=== PATIENT | male | born 1940 | race Caucasian/White ===

== ENCOUNTER 2018-01-12 12:10 | Inpatient (IN) | payer MEDICARE ==
[~2018-01-12] VITALS: Ht 170.2 cm; Wt 79.0 kg
[~2018-01-12 12:10] MED LIST: MULT1TAB63; OMG1KC
--- OUTSIDE RECORDS SUMMARY | 2018-01-12 12:27 | XMS REPORT ---
Author Author CARMELITA SALDANA Organization [facility] [place] Address [address] [place] [address] Care Team Providers Care Content Architect Name Role Phone SALDANA, CARMELITA Unavailable PROBLEMS Type Condition ICD9-CM Code MOG31-OO Code Onset Dates Condition Status SNOMED Code Problem Hypertension I10 Active 19427253 Problem Urge incontinence of urine N39.41 Active 50283790 Problem Arthritis M19.90 Active 5826785 Problem Back pain M54.9 Active 464276605 Problem Functional diarrhea K59.1 Active 06121879 Problem Right inguinal hernia K40.90 Active 391793555 Problem Pure hypercholesterolemia E78.00 Active 247988786 Problem Gaines L84 Active 220690200 Problem Prostatism N40.0 Active 67844180 Problem Other chronic pain G89.29 Active 35408957 ALLERGIES No Information ENCOUNTERS Encounter Location Date Diagnosis [facility] [id number] [place] [address] 07769- 4779 10 Dec, 2017 Back pain M54.9 [facility] [place] [id number] [place] [address] 62097- 2054 12 Nov, 2017 Back pain M54.9 [facility] [place] [id number] [place] [address] 56572- 7606 16 Oct, 2017 Back pain M54.9 [facility] [place] [id number] [place] [address] 80566- 6854 15 Oct, 2017 [facility] [place] [id number] [place] [address] 66487- 8291 Sep, Back pain M54.9 [facility] [place] [id number] [place] [address] 10928- 5566 Aug, Back pain M54.9 ; Prostatism N40.0 ; Functional diarrhea K59.1 and Right inguinal hernia K40.90 [facility] [place] [id number] [place] [address] 13048- 2533 July, Other chronic pain G89.29 [facility] [place] [id number] [place] [address] 10940- 8427 Jun, Other chronic pain G89.29 [facility] [place] [id number] [place] [address] 45826- 6459 May, Other chronic pain G89.29 [facility] [place] [id number] [place] [address] 06955- 4882 Apr, Other chronic pain G89.29 [facility] [place] [id number] [place] [address] 77603- 2172 Mar, Other chronic pain G89.29 [facility] [place] [id number] [place] [address] 18664- 2563 Feb, Other chronic pain G89.29 [facility] [id number] [place] [address] 51417 -3261 Feb, Acute upper respiratory infection, unspecified J06.9 and Other viral agents as the cause of diseases classified elsewhere B97.89 [facility] [place] [id number] [place] [address] 07034- 0817 Jan, [facility] [place] [id number] [place] [address] 35573- 6864 Jan, Back pain M54.9 and Prostatism N40.0 [facility] [place] [id number] [place] [address] 33441- 4838 Jan, Other chronic pain G89.29 [facility] [place] [id number] [place] [address] 92232- 0482 Dec, [facility] [place] [id number] [place] [address] 33932- 6843 Dec, Other chronic pain G89.29 [facility] [place] [id number] [place] [address] 19968- 6889 29 Nov, 2016 Other chronic pain G89.29 [facility] [place] [id number] [place] [address] 96373- 0629 25 Nov, 2016 Encounter for immunization Z23 [facility] [place] [id number] [place] [address] 62433- 8348 Nov, Other chronic pain G89.29 [facility] [place] [id number] [place] [address] 67488- 5145 Oct, Other chronic pain G89.29 [facility] [place] [id number] [place] [address] 94137- 9520 Oct, Back pain M54.9 [facility] [place] [id number] [place] [address] 43245- 8836 Sep, Back pain M54.9 [facility] [place] [id number] [place] [address] 66063- 0096 Aug, [facility] [place] [id number] [place] [address] 43261- 9337 Aug, Back pain M54.9 [facility] [place] [id number] [place] [address] 37137- 3901 July, Back pain M54.9 [facility] [place] [id number] [place] [address] 44164- 1259 Jun, Weight loss R63.4 and Postural hypotension I95.1 [facility] [place] [id number] [place] [address] 87683- 1930 14 Jun, 2016 Back pain M54.9 [facility] [place] [id number] [place] [address] 33553- 6175 May, Back pain M54.9 [facility] [place] [address] [address]- 8771 Apr, Back pain M54.9 [facility] [place] [id number] [place] [address] 76260- 2959 17 Apr, 2016 Pure hypercholesterolemia E78.00 [facility] [place] [address] 77383- 3138 Apr, Hypertension I10 ; Back pain M54.9 ; Urge incontinence of urine N39.41 and Gaines L84 [facility] [place] [address] 52806- 4277 Mar, [facility] [place] [address] 74528- 4454 Mar, Other chronic pain G89.29 [facility] [place] [address] 38858- 1249 Feb, [facility] [place] [address] 29806- 5803 Jan, [facility] [place] [address] 76902- 0984 Dec, [facility] [place] [id number] [place] [address] 64995- 0893 Nov, [facility] [place] [address] 86788- 0107 05 Oct, 2015 [facility] [place] [id number] [place] [address] 17033- 3174 Sep, Back pain M54.9 [facility] [place] [address] 39671- 5010 17 Aug, 2015 Back pain M54.9 and Hypertension I10 [facility] [id number] [place] [address] 67570 -8102 13 Aug, 2015 Low back pain M54.5 and Other chronic pain G89.29 [facility] [place] [id number] [place] [address] 94916- 9895 10 Aug, 2015 Back pain M54.9 [facility] [place] [address] 35279- 4466 July, Back pain M54.9 [facility] [place] [id number] [place] [address] 77715- 8869 Jun, Back pain M54.9 [facility] [place] [id number] [place] [address] 07551- 7076 May, Back pain M54.9 [facility] [place] [address] 54489- 5157 Apr, Back pain M54.9 [facility] [place] [address] 24953- 7681 Mar, Back pain M54.9 [place] [address] 26556- 0905 Feb, Prostatitis N41.9 ; Arthritis M19.90 and Hypertension I10 [place] [address] 89940- 8694 Feb, [place] [address] 98717- 3327 Jan, [place] [address] 55410- 1472 Dec, Encounter for immunization Z23 [place] [address] 40001- 3566 Dec, [place] [address] 09374- 2211 Dec, Eye pain H57.10 [place] [id number] [place] [address] 12203- 3942 Dec, Contusion of left leg S80.12XA and Right shoulder injury S49.91XA [place] [id number] [place] [address] 95439- 7946 05 Dec, 2014 Cellulitis L03.90 ; Back pain M54.9 ; Urinary incontinence R32 and Need for shvivlkvbz-zlcubxy-cfwifakpz (Tdap) vaccine Z23 [facility] [place] [address] [facility] [id number] [address]- 4416 Nov, Need for prophylactic vaccination with tetanus-diphtheria ( TD) V06.5 [facility] [place] [address] [id number] [place] [address]- 2546 Nov, [facility] [place] [address] [facility] [id number], [place] [address]- 2546 Oct, [facility] [place] [address] [facility] [id number] [place] [address]- 2546 Sep, [facility] [place] [address] [facility] [id number] [place] [address]- 2546 Sep, [facility] [place] [address] [facility] [id number], [place] [address]- 2546 Aug, [facility] [place] [address] [id number] [address]- 3066 July, [facility] [place] [address] [facility] [id number], [place] [address]- 1526 July, [facility] [place] [address] [id number], [place] [address]- 5296 Jun, [facility] [place] [address] [id number], [place] [address]- 2546 Jun, [facility] [place] [address] [id number] [address]- 2546 May, [facility] [place] [address] [facility] [id number], [place] [address]- 2546 May, [facility] [place] [address] [id number] [address]- 2546 Apr, [facility] [place] [address] [facility] [id number], [place] [address]- 2546 Apr, [facility] [place] [address] [id number] [address]- 5617 Mar, [facility] [place] [facility] [address] [id number] [place] [address]- 5739 Mar, [facility] [place] [facility] [address] [id number] [place] [address]- 5521 Mar, [facility] [place] [facility] [address] [id number] [place] [address]- 4398 Mar, [facility] [place] [facility] [address] [id number] [place] [address]- 6432 Mar, [facility] [place] [facility] [address] [id number] [place] [address]- 6684 Mar, [facility] [place] [facility] [address] [id number] [place] [address]- 6120 Mar, [facility] [place] [facility] [address] [id number] [place] [address]- 5188 Mar, [facility] [place] [facility] [address] [id number] [place] [address]- 8190 Mar, [facility] [place] [facility] [address] [id number] [place] [address]- 7680 Mar, [facility] [place] [facility] [address] [id number] [place] [address]- 2734 Mar, [facility] [place] [facility] [address] [id number], [place] [address]- 3388 Mar, [facility] [place] [facility] [address] [id number][place] [address]- 3743 Mar, [facility] [place] [facility] [address] [id number] [place] [address]- 2872 Mar, [facility] [place] [facility] [address] [id number] [place] [address]- 1158 Feb, [facility] [place] [facility] [address] [id number] [place] [address]- 7246 Feb, [facility] [place] [facility] [address] [id number] [place] [address]- 7651 Feb, [facility] [place] [facility] [address] [id number] [place] [address]- 2337 Feb, [facility] [place] [facility] [address] [id number] [place] 1018 Feb, [facility] [place] [facility] [address] [id number] [place] 4296 Feb, [facility] [place] [facility] [address] [id number] [place] [address]- 7843 Jan, [facility] [place] [facility] [address] [id number] [place] [address]- 1694 Jan, [facility] [place] [facility] [address] [id number] [place] [address]- 2752 Dec, [facility] [place] [facility] [address] [id number] [place] [address]- 7195 Dec, [facility] [place] [facility] [address] [id number] [place] [address]- 8248 Dec, [facility] [place] [facility] [address] [id number] [place] [address]- 8354 Dec, [facility] [place] [facility] [address] [facility] [id number] [place] [address]- 4694 Dec, [facility] [place] [facility] [address] [id number] [place] [address]- 2919 Dec, [facility] [place] [facility] [address] [id number] [place] [address]- 4272 Nov, [facility] [place] [facility] [address] [id number] [place] [address]- 6373 Nov, [facility] [place] [facility] [address] [id number] [place] [address]- 1734 Oct, [facility] [place] [facility] [address] [id number] [place] 5294 Oct, [facility] [place] [facility] [address] [id number] [place] [address]- 0886 Sep, [facility] [place] [facility] [address] [id number] [place] [address]- 4419 Sep, [facility] [place] [facility] [address] [id number] [place] [address]- 2275 Sep, [facility] [place] [facility] [address] [id number] [place] [address]- 5255 Sep, [facility] [place] [facility] [address] [id number] [place] [address]- 3216 July, [facility] [place] [facility] [address] [id number] [place] [address]- 6078 July, [facility] [place] [facility] [address] [id number] [place] [address]- 9712 July, [facility] [place] [facility] [address] [id number] [place] [address]- 4865 July, [facility] [place] [facility] [address] [id number] [place] [address]- 8221 Feb, [facility] [place] [facility] [address] [id number] [place] [address]- 7512 Feb, [facility] [place] [facility] [address] [id number] [place] [address]- 1466 Jan, [facility] [place] [facility] [address] [id number] [place] [address]- 8058 Jan, [facility] [place] [facility] [address] [id number] [place] [address]- 8788 Jan, [facility] [place] [facility] [address] [id number] [place] [address]- 1204 Jan, [facility] [place] [facility] [address] [id number] [place] [address]- 7932 30 Nov, 2012 [facility] [place] [facility] [address] [id number], [place] [address]- 8405 Aug, [facility] [place] [facility] [address] [id number] [place] [address]- 2481 July, [facility] [place] [facility] [address] [id number] [place] [address]- 0407 Jun, [facility] [place] [facility] [address] [id number] [place] [address]- 3096 Apr, [facility] [place] [facility] [address] [id number] [place] [address]- 8980 Mar, [facility] [place] [facility] [address] [id number] [place] [address]- 0710 Mar, [facility] [place] [facility] [address] [id number] [place] 5234 Jan, [facility] [place] [facility] [address] [id number] [place] [address]- 3505 Jan, [facility] [place] [facility] [address] [id number] [place] [address]- 8957 Jan, [facility] [place] [facility] [address] [id number], [place] [address]- 8095 Jan, [facility] [place] [facility] [address] [id number] [place] [address]- 5565 Dec, [facility] [place] [facility] [address] [id number], [place] [address]- 3718 Dec, [facility] [place] [facility] [address] [id number], [place] [address]- 5573 Dec, [facility] [place] [facility] [address] [id number], [place] [address]- 4105 Dec, [facility] [place] [facility] [address] [id number], [place] [address]- 9803 Nov, [facility] [place] [facility] [address] [id number] [place] [address]- 1963 Oct, [facility] [place] [facility] [address] [id number] [place] [address] 2546 July, [facility] [address] [id number] [place] [address]- 9266 Mar, [facility] [place] [facility] [address] [id number] [place] [address] 2546 Jan, [facility] [place] [facility] [address] [id number] [place] [address]- 8246 Jan, [facility] [place] [facility] [address] [id number] [place] [address]- 3096 Dec, [facility] [place] [facility] [address] [id number] [place] [address]- 2696 Dec, [facility] [place] [facility] [address] [id number] [place] [address]- 1876 Dec, [facility] [place] [facility] [address] [id number] [place] [address]- 2775 Nov, [facility] [address] [id number] [place] [address]- 6753 July, [facility] [place] [facility] [address] [id number] [place] [address]- 4650 Jun, [facility] [place] [facility] [address] [id number] [place] [address]- 7366 May, [facility] [place] [facility] [address] [id number] [place] [address]- 1646 14 Apr, 2010 [facility] [place] [facility] [address] [id number] [place] [address]- 6866 Apr, [facility] [place] [facility] [address] [id number] [place] [address]- 8346 Mar, [facility] [place] [facility] [address] [id number] [place] [address]- 2546 Jan, [facility] [place] [facility] [address] [id number] [place] [address]- 0976 Dec, [facility] [place] [address] [facility] [id number] [place] [address]- 4259 Jun, [facility] [place] [address] [facility] [id number], [place] [address]- 0216 Jun, IMMUNIZATIONS No Known Immunizations SOCIAL HISTORY Never Assessed REASON FOR VISIT Controlled Med Refill 12/31 PLAN OF CARE VITAL SIGNS MEDICATIONS Medication Instructions Dosage Frequency Start Date End Date Duration Status Hydrocodone-Acetaminophen 5-325 MG Orally 3 times a day 1 tablet 8h Dec 28 days Active RESULTS No Results PROCEDURES No Known procedures INSTRUCTIONS MEDICATIONS ADMINISTERED No Known Medications MEDICAL (GENERAL) HISTORY Type Description Date Medical History prostatism Medical History chronic pain Medical History hypertension
--- OUTSIDE RECORDS SUMMARY | 2018-01-12 12:28 | XMS REPORT ---
Author Author RONAL CAMARGO Organization [facility] Address [address] [place] [address] Care Team Providers Care Infrastructure Administrator Name Role Phone RONAL CAMARGO Unavailable PROBLEMS Type Condition ICD9-CM Code QTZ22-MT Code Onset Dates Condition Status SNOMED Code Problem Hypertension I10 Active 61893553 Problem Urge incontinence of urine N39.41 Active 40309913 Problem Arthritis M19.90 Active 1682251 Problem Back pain M54.9 Active 579153373 Problem Functional diarrhea K59.1 Active 10794226 Problem Right inguinal hernia K40.90 Active 792856065 Problem Pure hypercholesterolemia E78.00 Active 644842102 Problem Annabella L84 Active 538560167 Problem Prostatism N40.0 Active 66599627 Problem Other chronic pain G89.29 Active 71144597 ALLERGIES No Information ENCOUNTERS Encounter Location Date Diagnosis [place] [id number] [place] [address] 57895- 0607 Nov, Back pain M54.9 [facility] [id number] [place] [address] 64203- 6855 Oct, Back pain M54.9 [facility] [id number] [place] [address] 22147- 5394 Oct, [facility] [id number] [place] [address] 28151- 4595 Sep, Back pain M54.9 [facility] [address] 37428- 3763 Aug, Back pain M54.9 ; Prostatism N40.0 ; Functional diarrhea K59.1 and Right inguinal hernia K40.90 [facility] [address] 38504- 7469 July, Other chronic pain G89.29 [facility] [address] [address] 2637 Jun, Other chronic pain G89.29 [facility] [id number] [place] [address] 292618- 5500 May, Other chronic pain G89.29 [facility] [id number] [place] [address] 25770- 0804 Apr, Other chronic pain G89.29 [facility] [address] [place] [address] 46118- 8663 Mar, Other chronic pain G89.29 [facility] [id number] [place] [address] 27969- 1561 Feb, Other chronic pain G89.29 [facility]ALK [facility] [address] [place] [address] 45871 -9091 Feb, Acute upper respiratory infection, unspecified J06.9 and Other viral agents as the cause of diseases classified elsewhere B97.89 [facility] [id number] [place] [address] 97241- 5101 Jan, [facility] [id number] [place] [address] 21830- 2577 Jan, Back pain M54.9 and Prostatism N40.0 [facility] [id number] [place] [address] 71929- 7412 Jan, Other chronic pain G89.29 [facility] [address] [place] [address] 61761- 1537 Dec, [facility] [id number] [place] [address] 25233- 4425 Dec, Other chronic pain G89.29 [facility] [id number] [place] [address] 60878- 4404 Nov, Other chronic pain G89.29 [facility] [id number] [place] [address] 52918- 6448 25 Nov, 2016 Encounter for immunization Z23 [facility] [address] 64861- 0563 Nov, Other chronic pain G89.29 [facility] [address] 87839- 9995 Oct, Other chronic pain G89.29 [facility] [address] 28650- 4031 Oct, Back pain M54.9 [facility] [address] 16452- 6416 Sep, Back pain M54.9 [facility] [id number] [place] [address] 01291- 2387 Aug, [facility] [address] 66156- 9321 Aug, Back pain M54.9 [facility] [id number] [place] [address] 85549- 8860 July, Back pain M54.9 [facility] [id number] [place] [address] 29871- 3569 24 Jun, 2016 Weight loss R63.4 and Postural hypotension I95.1 [facility] [id number] [place] [address] 39379- 0204 Jun, Back pain M54.9 [facility] [id number] [place] [address] 47390- 0589 May, Back pain M54.9 [facility] [address] 61059- 3278 Apr, Back pain M54.9 [facility] [id number] [place] [address] 97716- 4306 Apr, Pure hypercholesterolemia E78.00 [facility] [id number] [place] [address] 57843- 3096 Apr, Hypertension I10 ; Back pain M54.9 ; Urge incontinence of urine N39.41 and Annabella L84 [facility] [id number] [place] [address] 56071- 3280 Mar, [facility] [id number] [place] [address] 55689- 3218 Mar, Other chronic pain G89.29 [facility] [id number] [place] [address] 37057- 2733 Feb, [facility] [address] 65553- 4561 Jan, [facility] [id number] [place] [address] 88921- 2674 Dec, [facility] [id number] [place] [address] 16093- 4909 Nov, [facility] [id number] [place] [address] 47912- 7661 05 Oct, 2015 [facility] [id number] [place] [address] 68951- 3115 Sep, Back pain M54.9 [facility] [id number] [place] [address] 96058- 8365 17 Aug, 2015 Back pain M54.9 and Hypertension I10 [facility] [id number] [place] [address] 66751 -5692 13 Aug, 2015 Low back pain M54.5 and Other chronic pain G89.29 [facility] [id number] [place] [address] 49188- 0700 10 Aug, 2015 Back pain M54.9 [facility] [id number] [place] [address] 75441- 2445 July, Back pain M54.9 [facility] [address] 30538- 4880 06 Jun, 2015 Back pain M54.9 [place] [address] 30217- 9538 May, Back pain M54.9 [place] [address] 28832- 3386 04 Apr, 2015 Back pain M54.9 [place] [address] 54209- 0555 Mar, Back pain M54.9 [place] [address] 89361- 3743 Feb, Prostatitis N41.9 ; Arthritis M19.90 and Hypertension I10 [place] [address] 11388- 5341 15 Feb, 2015 [place] [address] 20516- 5790 Jan, [place] [address] 20799- 6037 Dec, Encounter for immunization Z23 [place] [address] 93117- 9291 Dec, [place] [address] 81229- 7356 Dec, Eye pain H57.10 [place] [address] 10673- 4803 Dec, Contusion of left leg S80.12XA and Right shoulder injury S49.91XA [place] [address] 65501- 2105 05 Dec, 2014 Cellulitis L03.90 ; Back pain M54.9 ; Urinary incontinence R32 and Need for odxeyioozm-kvywqeq-ikmfyamft (Tdap) vaccine Z23 [place] [address] 17512- 8282 Nov, Need for prophylactic vaccination with tetanus-diphtheria ( TD) V06.5 [facility] [address] [facility] [id number] [place] [address]- 8706 Nov, [facility] [address] [facility] [id number] [place] [address]- 2546 Oct, [facility] [address] [facility] [id number], [place] [address]- 2546 Sep, [facility] [address] [facility] [id number] [place] [address]- 2546 Sep, [facility] [address] [facility] [id number] [place] [address], [place] [address]- 2546 Aug, [facility] [id number] [address]- 2546 July, [facility] [address] [place] [address]- 2546 July, [facility] [address] [facility] [id number], [place] [address]- 5416 Jun, [facility] [address] [address]- 3726 Jun, [facility] [id number] [address]- 2546 May, [facility] [address] [address]- 2546 May, [facility] [address] [facility] [id number], [place] [address]- 2546 Apr, [facility] [id number] [address]- 2546 Apr, [facility] [address] [facility] [id number], [place] [address]- 2546 Mar, [facility] [id number] [address]- 4175 Mar, [facility] [place] [facility] [address] [id number] [place] [address]- 7591 Mar, [facility] [place] [facility] [address] [id number] [place] [address]- 6824 Mar, [facility] [place] [facility] [address] [id number] [place] [address]- 7904 Mar, [facility] [place] [facility] [address] [id number] [place] [address]- 0410 Mar, [facility] [place] [facility] [address] [id number] [place] [address]- 4794 Mar, [facility] [place] [facility] [address] [id number] [place] [address]- 9090 Mar, [facility] [place] [facility] [address] [id number] [place] [address]- 9605 Mar, [facility] [place] [facility] [address] [id number] [place] [address]- 5388 Mar, [facility] [place] [facility] [address] [id number] [place] [address]- 1193 Mar, [facility] [place] [facility] [address] [id number] [place] [address]- 9048 Mar, [facility] [place] [facility] [address] [id number] [place] [address]- 6085 Mar, [facility] [place] [facility] [address] [id number] [place] [address]- 5486 Mar, [facility] [place] [facility] [address] [id number] [place] [address]- 5684 Feb, [facility] [place] [facility] [address] [id number] [place] [address]- 2313 Feb, [facility] [place] [facility] [address] [id number] [place] [address]- 3428 Feb, [facility] [place] [facility] [address] [id number] [place] [address]- 6669 Feb, [facility] [place] [facility] [address] [id number] [place] 4621 Feb, [facility] [place] [facility] [address] [id number] [place] 2576 Feb, [facility] [place] [facility] [address] [id number] [place] [address]- 4308 Jan, [facility] [place] [facility] [address] [id number] [place] [address]- 9853 Jan, [facility] [place] [facility] [address] [id number] [place] [address]- 8378 Dec, [facility] [place] [facility] [address] [id number] [place] [address]- 8215 Dec, [facility] [place] [facility] [address] [id number] [place] [address]- 1668 Dec, [facility] [place] [facility] [address] [id number] [place] [address]- 2060 Dec, [facility] [place] [facility] [address] [id number] [place] [address]- 1072 Dec, [facility] [place] [facility] [address] [id number] [place] [address]- 4238 Dec, [facility] [place] [facility] [address] [id number] [place] [address]- 0747 Nov, [facility] [place] [facility] [address] [id number], [place] [address]- 0976 Nov, [facility] [place] [facility] [address] [id number] [place] [address]- 2139 Oct, [facility] [place] [facility] [address] [id number] [place] [address]- 6226 Oct, [facility] [place] [facility] [address] [id number] [place] [address]- 5575 Sep, [facility] [place] [facility] [address] [id number] [place] [address]- 2529 Sep, [facility] [place] [facility] [address] [id number] [place] [address]- 1846 Sep, [facility] [place] [facility] [address] [id number] [place] [address]- 9086 Sep, [facility] [place] [facility] [address] [id number] [place] [address]- 8464 July, [facility] [place] [facility] [address] [id number] [place] [address]- 6537 July, [facility] [place] [facility] [address] [id number] [place] [address]- 6420 July, [facility] [place] [facility] [address] [id number] [place] [address]- 8453 July, [facility] [place] [facility] [address] [id number] [place] [address]- 8637 Feb, [facility] [place] [facility] [address] [id number] [place] [address]- 3674 Feb, [facility] [place] [facility] [address] [id number] [place] [address]- 3770 Jan, [facility] [place] [facility] [address] [id number] [place] [address]- 0550 14 Jan, 2013 [facility] [place] [facility] [address] [id number] [place] [address]- 5951 Jan, [facility] [place] [facility] [address] [id number] [place] [address]- 1948 Jan, [facility] [place] [facility] [address] [id number] [place] [address]- 2516 30 Nov, 2012 [facility] [place] [facility] [address] [id number] [place] [address] 2546 27 Aug, 2012 [facility] [place] [facility] [address] [id number] [place] [address]- 8515 July, [facility] [place] [facility] [address] [id number] [place] [address]- 9317 Jun, [facility] [place] [facility] [address] [id number] [place] [address]- 6576 Apr, [facility] [place] [facility] [address] [facility] [id number] [place] [address]- 2338 Mar, [facility] [place] [facility] [address] [id number] [place] [address]- 6226 Mar, [facility] [place] [facility] [address] [id number] [place] [address]- 6498 Jan, [facility] [place] [facility] [address] [id number] [place] [address]- 9238 Jan, [facility] [place] [facility] [address] [id number] [place] [address]- 9160 Jan, [facility] [place] [facility] [address] [id number], [place] [address]- 2726 Jan, [facility] [place] [facility] [address] [id number], [place] [address]- 0994 Dec, [facility] [place] [facility] [address] [id number], [place] [address]- 2763 Dec, [facility] [place] [facility] [address] [id number], [place] [address]- 6613 Dec, [facility] [place] [facility] [address] [id number], [place] [address]- 1605 Dec, [facility] [place] [facility] [address] [id number] [place] [address]- 1076 Nov, [facility] [place] [facility] [address] [facility] [id number], [place] [address]- 5636 Oct, [facility] [place] [facility] [address] [facility] [id number], [place] [address] 2546 July, [facility] [place] [facility] [address] [id number] [place] [address]- 4010 06 Mar, 2011 [facility] [address] [id number] [place] [address]- 8745 17 Jan, 2011 [facility] [place] [facility] [address] [id number] [place] [address]- 8351 17 Jan, 2011 [facility] [address] [id number] [place] [address]- 4691 Dec, [facility] [place] [facility] [address] [id number] [place] [address]- 1517 Dec, [facility] [address] [id number] [place] [address]- 6425 Dec, [facility] [address] [id number] [place] [address]- 1762 Nov, [facility] [address] [id number] [place] [address]- 8499 July, [facility] [address] [id number] [place] [address]- 5267 14 Jun, 2010 [facility] [address] [id number] [place] [address]- 9298 May, [facility] [address] [id number] [place] [address]- 3283 14 Apr, 2010 [facility] [place] [facility] [address] [id number] [place] [address]- 4203 10 Apr, 2010 [facility] [address] [id number] [place] [address]- 2721 14 Mar, 2010 [facility] [place] [facility] [address] [id number] [place] [address]- 0280 Jan, [facility] [place] [facility] [address] [id number] [place] [address]- 7559 Dec, [facility] [address] [id number] [place] 7503 Jun, [facility] [address] [facility] [id number] [place] [address] 9956 Jun, IMMUNIZATIONS No Known Immunizations SOCIAL HISTORY Never Assessed REASON FOR VISIT Controlled Med Refill PLAN OF CARE VITAL SIGNS MEDICATIONS Medication Instructions Dosage Frequency Start Date End Date Duration Status Hydrocodone-Acetaminophen 5-325 MG Orally 3 times a day 1 tablet 8h Oct 28 days Active RESULTS No Results PROCEDURES No Known procedures INSTRUCTIONS MEDICATIONS ADMINISTERED No Known Medications MEDICAL (GENERAL) HISTORY Type Description Date Medical History prostatism Medical History chronic pain Medical History hypertension
--- OUTSIDE RECORDS SUMMARY | 2018-01-12 12:28 | XMS REPORT ---
Author Author RONAL CAMARGO Organization [facility] Address [address] [place] [address] Care Team Providers Care Inbound Customer Service Representative Name Role Phone RONAL CAMARGO Unavailable PROBLEMS Type Condition ICD9-CM Code WEC54-AU Code Onset Dates Condition Status SNOMED Code Problem Hypertension I10 Active 06652422 Problem Urge incontinence of urine N39.41 Active 10293705 Problem Arthritis M19.90 Active 5842593 Problem Back pain M54.9 Active 599580888 Problem Functional diarrhea K59.1 Active 47651570 Problem Right inguinal hernia K40.90 Active 245771106 Problem Pure hypercholesterolemia E78.00 Active 397872493 Problem [place] L84 Active 149751674 Problem Prostatism N40.0 Active 77629629 Problem Other chronic pain G89.29 Active 37939008 ALLERGIES No Information ENCOUNTERS Encounter Location Date Diagnosis [place] [id number] [place] [address] 18850- 0053 Nov, Back pain M54.9 [facility] [id number] [place] [address] 53655- 7534 Oct, Back pain M54.9 [facility] [id number] [place] [address] 41610- 1451 Oct, [facility] [id number] [place] [address] 11552- 9363 Sep, Back pain M54.9 [facility] [address] 22790- 1282 Aug, Back pain M54.9 ; Prostatism N40.0 ; Functional diarrhea K59.1 and Right inguinal hernia K40.90 [facility] [address] 30975- 2623 July, Other chronic pain G89.29 [facility] [address] [address] 5308 Jun, Other chronic pain G89.29 [facility] [id number] [place] [address] 184072- 9349 May, Other chronic pain G89.29 [facility] [id number] [place] [address] 91206- 6375 Apr, Other chronic pain G89.29 [facility] [id number] [place] [address] 09862- 3406 Mar, Other chronic pain G89.29 [facility] [id number] [place] [address] 99954- 8359 Feb, Other chronic pain G89.29 [facility] [id number] [place] [address] 90177 -3576 Feb, Acute upper respiratory infection, unspecified J06.9 and Other viral agents as the cause of diseases classified elsewhere B97.89 [facility] [id number] [place] [address] 35636- 1633 Jan, [facility] [id number] [place] [address] 84288- 8820 Jan, Back pain M54.[address] [facility] [id number] [place] [address] 07551- 5685 Jan, Other chronic pain G89.29 [facility] [id number] [place] [address] 09185- 2771 Dec, [facility] [id number] [place] [address] 16327- 7161 Dec, Other chronic pain G89.29 [facility] [id number] [place] [address] 53445- 2023 Nov, Other chronic pain G89.29 [facility] [id number] [place] [address] 01719- 8046 25 Nov, 2016 Encounter for immunization Z23 [facility] [address] 85396- 0548 Nov, Other chronic pain G89.29 [facility] [address] 69826- 4270 Oct, Other chronic pain G89.29 [facility] [address] 76056- 2218 Oct, Back pain M54.9 [facility] [address] 95104- 4781 Sep, Back pain M54.9 [facility] [id number] [place] [address] 76503- 3826 Aug, [facility] [address] 02749- 0996 Aug, Back pain M54.9 [facility] [id number] [place] [address] 53143- 1006 July, Back pain M54.9 [facility] [id number] [place] [address] 19663- 1020 24 Jun, 2016 Weight loss R63.4 and Postural hypotension I95.1 [facility] [id number] [place] [address] 11619- 4795 Jun, Back pain M54.9 [facility] [id number] [place] [address] 87718- 7034 May, Back pain M54.9 [facility] [address] 03583- 5171 Apr, Back pain M54.9 [facility] [id number] [place] [address] 39801- 4142 Apr, Pure hypercholesterolemia E78.00 [facility] [id number] [place] [address] 19909- 7353 Apr, Hypertension I10 ; Back pain M54.9 ; Urge incontinence of urine N39.[address] [place] L84 [facility] [id number] [place] [address] 79615- 4350 Mar, [facility] [id number] [place] [address] 24067- 4329 Mar, Other chronic pain G89.29 [facility] [id number] [place] [address] 64271- 0623 Feb, [facility] [address] 95902- 5818 Jan, [facility] [id number] [place] [address] 03363- 5423 Dec, [facility] [id number] [place] [address] 92882- 4456 Nov, [facility] [id number] [place] [address] 56873- 7725 05 Oct, 2015 [facility] [id number] [place] [address] 19739- 9017 Sep, Back pain M54.9 [facility] [id number] [place] [address] 83726- 3043 17 Aug, 2015 Back pain M54.9 and Hypertension I10 [facility] [id number] [place] [address] 07505 -4676 13 Aug, 2015 Low back pain M54.5 and Other chronic pain G89.29 [facility] [id number] [place] [address] 82838- 9008 10 Aug, [address] [facility] [id number] [place] [address] 65077- 4035 July, Back pain M54.9 [facility] [address] 59815- 8433 06 Jun, 2015 Back pain M54.9 [place] [address] 67373- 4971 May, Back pain M54.9 [place] [address] 25701- 9522 04 Apr, 2015 Back pain M54.9 [place] [address] 05531- 8709 Mar, Back pain M54.9 [place] [address] 53731- 2181 Feb, Prostatitis N41.9 ; Arthritis M19.90 and Hypertension I10 [place] [address] 53415- 3826 15 Feb, 2015 [place] [address] 31857- 9143 Jan, [place] [address] 93811- 3847 Dec, Encounter for immunization Z23 [place] [address] 04271- 9526 Dec, [place] [address] 55820- 2544 Dec, Eye pain H57.10 [place] [address] 00545- 2459 Dec, Contusion of left leg S80.12XA and Right shoulder injury S49.91XA [place] [address] 92328- 4232 05 Dec, 2014 Cellulitis L03.90 ; Back pain M54.9 ; Urinary incontinence R32 and Need for evltlptbej-ontlknm-yffqvkohw (Tdap) vaccine Z23 [place] [address] 73279- 8131 Nov, Need for prophylactic vaccination with tetanus-diphtheria ( TD) V06.5 [facility] [address] [facility] [id number] [place] [address]- 4666 Nov, [facility] [address] [facility] [id number] [place] [address]- 2546 Oct, [facility] [address] [facility] [id number] [address]- 2546 Sep, [facility] [address] [facility] [id number] [place] [address]- 25[address] Sep, [facility] [address] [facility] [id number] [place] [address], [place] [address]- [address] Aug, [facility] [id number] [address]- 25[address] July, [facility] [id number] [place] [address]- 25[address] July, [facility] [address] [facility] [id number] [address]- 6636 Jun, [facility] [address] [address]- 2866 Jun, [facility] [id number] [address]- 2546 May, [facility] [address] [address] 2546 May, [facility] [address] [facility] [id number] [address]- 2546 Apr, [facility] [id number] [address]- 2546 Apr, [facility] [address] [facility] [id number] [address]- 2546 Mar, [facility] [id number] [address]- 6810 Mar, [facility] [place] [facility] [address] [id number] [place] [address]- 3883 Mar, [facility] [place] [facility] [address] [id number] [place] [address]- 7628 Mar, [facility] [place] [facility] [address] [id number] [place] [address]- 1518 Mar, [facility] [place] [facility] [address] [id number] [place] [address]- 4798 Mar, [facility] [place] [facility] [address] [id number] [place] [address]- 4035 Mar, [facility] [place] [facility] [address] [id number] [place] [address]- 8174 Mar, [facility] [place] [facility] [address] [id number] [place] [address]- 8458 Mar, [facility] [place] [facility] [address] [id number] [place] [address]- 9482 Mar, [facility] [place] [facility] [address] [id number] [place] [address]- 4650 Mar, [facility] [place] [facility] [address] [id number] [place] [address]- 7439 Mar, [facility] [place] [facility] [address] [id number] [place] [address]- 8311 Mar, [facility] [place] [facility] [address] [id number] [place] [address]- 3700 Mar, [facility] [place] [facility] [address] [id number] [place] [address]- 6430 Feb, [facility] [place] [facility] [address] [id number] [place] [address]- 6204 Feb, [facility] [place] [facility] [address] [id number] [place] [address]- 0184 Feb, [facility] [place] [facility] [address] [id number] [place] [address]- 0833 Feb, [facility] [place] [facility] [address] [id number] [place] 8197 Feb, [facility] [place] [facility] [address] [id number] [place] 4937 Feb, [facility] [place] [facility] [address] [id number] [place] [address]- 7688 Jan, [facility] [place] [facility] [address] [id number] [place] [address]- 9436 Jan, [facility] [place] [facility] [address] [id number] [place] [address]- 4191 Dec, [facility] [place] [facility] [address] [id number] [place] [address]- 5352 Dec, [facility] [place] [facility] [address] [id number] [place] [address]- 9841 Dec, [facility] [place] [facility] [address] [id number] [place] [address]- 5300 Dec, [facility] [place] [facility] [address] [id number] [place] [address]- 6380 Dec, [facility] [place] [facility] [address] [id number] [place] [address]- 8074 Dec, [facility] [place] [facility] [address] [id number] [place] [address]- 9955 Nov, [facility] [place] [facility] [address] [id number][place] [address]- 0364 Nov, [facility] [place] [facility] [address] [id number] [place] [address]- 3344 Oct, [facility] [place] [facility] [address] [id number] [place] [address]- 8119 Oct, [facility] [place] [facility] [address] [id number] [place] [address]- 1279 Sep, [facility] [place] [facility] [address] [id number] [place] [address]- 3920 Sep, [facility] [place] [facility] [address] [id number] [place] [address]- 4987 Sep, [facility] [place] [facility] [address] [id number] [place] [address]- 0246 Sep, [facility] [place] [facility] [address] [id number] [place] [address]- 0685 July, [facility] [place] [facility] [address] [id number] [place] [address]- 1296 July, [facility] [place] [facility] [address] [id number] [place] [address]- 5317 July, [facility] [place] [facility] [address] [id number] [place] [address]- 2485 July, [facility] [place] [facility] [address] [id number] [place] [address]- 1901 Feb, [facility] [place] [facility] [address] [id number] [place] [address]- 3582 Feb, [facility] [place] [facility] [address] [id number] [place] [address]- 1118 Jan, [facility] [place] [facility] [address] [id number] [place] [address]- 9396 14 Jan, 2013 [facility] [place] [facility] [address] [id number] [place] [address]- 8353 Jan, [facility] [place] [facility] [address] [id number] [place] [address]- 1576 Jan, [facility] [place] [facility] [address] [id number] [place] [address]- 0066 30 Nov, 2012 [facility] [place] [facility] [address] [id number] [place] [address] 2546 27 Aug, 2012 [facility] [place] [facility] [address] [id number] [place] [address]- 8173 July, [facility] [place] [facility] [address] [id number] [place] [address]- 4162 Jun, [facility] [place] [facility] [address] [id number] [place] [address]- 2106 Apr, [facility] [place] [facility] [address] [facility] [id number] [place] [address]- 8919 Mar, [facility] [place] [facility] [address] [id number] [place] [address]- 6942 Mar, [facility] [place] [facility] [address] [id number] [place] [address]- 1455 Jan, [facility] [place] [facility] [address] [id number] [place] [address]- 8275 Jan, [facility] [place] [facility] [address] [id number] [place] [address]- 8514 Jan, [facility] [place] [facility] [address] [id number][place] [address]- 8407 Jan, [facility] [place] [facility] [address] [id number][place] [address]- 2550 Dec, [facility] [place] [facility] [address] [id number][place] [address]- 6624 Dec, [facility] [place] [facility] [address] [id number][place] [address]- 8273 Dec, [facility] [place] [facility] [address] [id number][place] [address]- 9299 Dec, [facility] [place] [facility] [address] [id number] [place] [address]- 5685 Nov, [facility] [place] [facility] [address] [facility] [id number][place] [address]- 1436 Oct, [facility] [place] [facility] [address] [facility] [id number][place] [address] 2546 July, [facility] [place] [facility] [address] [id number] [place] [address]- 0395 06 Mar, 2011 [facility] [address] [id number] [place] [address]- 3628 17 Jan, 2011 [facility] [place] [facility] [address] [id number] [place] [address]- 1762 17 Jan, 2011 [facility] [address] [id number] [place] [address]- 3342 Dec, [facility] [place] [facility] [address] [id number] [place] [address]- 4895 Dec, [facility] [address] [id number] [place] [address]- 7070 Dec, [facility] [address] [id number] [place] [address]- 9922 Nov, [facility] [address] [id number] [place] [address]- 2244 July, [facility] [address] [id number] [place] [address]- 8016 14 Jun, 2010 [facility] [address] [id number] [place] [address]- 1561 May, [facility] [address] [id number] [place] [address]- 8039 14 Apr, 2010 [facility] [place] [facility] [address] [id number] [place] [address]- 0611 10 Apr, 2010 [facility] [address] [id number] [place] [address]- 4635 14 Mar, 2010 [facility] [place] [facility] [address] [id number] [place] [address]- 1346 Jan, [facility] [place] [facility] [address] [id number] [place] [address]- 4958 Dec, [facility] [address] [id number] [place] [address] Jun, [facility] [address] [facility] [id number] [place] [address]- 8035 Jun, IMMUNIZATIONS No Known Immunizations SOCIAL HISTORY Never Assessed REASON FOR VISIT Controlled Med Refill 11/05 PLAN OF CARE VITAL SIGNS MEDICATIONS Unknown Medications RESULTS No Results PROCEDURES No Known procedures INSTRUCTIONS MEDICATIONS ADMINISTERED No Known Medications MEDICAL (GENERAL) HISTORY Type Description Date Medical History prostatism Medical History chronic pain Medical History hypertension
--- OUTSIDE RECORDS SUMMARY | 2018-01-12 12:28 | XMS REPORT ---
Author Author RONAL CAMARGO Organization [facility] Address [address] [place] [address] Care Team Providers [employer] Specialist Name Role Phone RONAL CAMARGO Unavailable PROBLEMS Type Condition ICD9-CM Code SUY97-EM Code Onset Dates Condition Status SNOMED Code Problem Hypertension I10 Active 90564232 Problem Urge incontinence of urine N39.41 Active 93958359 Problem Arthritis M19.90 Active 1097802 Problem Back pain M54.9 Active 849636297 Problem Functional diarrhea K59.1 Active 20821640 Problem Right inguinal hernia K40.90 Active 283537008 Problem Pure hypercholesterolemia E78.00 Active 672495622 Problem [place] L84 Active 518213590 Problem Prostatism N40.0 Active 39520516 Problem Other chronic pain G89.29 Active 15308828 ALLERGIES No Information ENCOUNTERS Encounter Location Date Diagnosis [place] [id number] [place] [address] 51432- 2918 Nov, Back pain M54.9 [facility] [id number] [place] [address] 07512- 9187 Oct, Back pain M54.9 [facility] [id number] [place] [address] 58122- 6807 Oct, [facility] [id number] [place] [address] 51157- 0850 Sep, Back pain M54.9 [facility] [address] 96308- 0251 Aug, Back pain M54.9 ; Prostatism N40.0 ; Functional diarrhea K59.1 and Right inguinal hernia K40.90 [facility] [address] 13674- 8846 July, Other chronic pain G89.29 [facility] [address] [address] 8223 Jun, Other chronic pain G89.29 [facility] [id number] [place] [address] 306696- 7485 May, Other chronic pain G89.29 [facility] [id number] [place] [address] 71245- 1294 Apr, Other chronic pain G89.29 [facility] [id number] [place] [address] 82350- 7572 Mar, Other chronic pain G89.29 [facility] [id number] [place] [address] 40970- 8685 Feb, Other chronic pain G89.29 [facility] [id number] [place] [address] 45017 -6642 Feb, Acute upper respiratory infection, unspecified J06.9 and Other viral agents as the cause of diseases classified elsewhere B97.89 [facility] [id number] [place] [address] 10844- 3091 Jan, [facility] [id number] [place] [address] 81449- 5959 Jan, Back pain M54.9 and Prostatism N40.0 [facility] [id number] [place] [address] 15033- 8302 Jan, Other chronic pain G89.29 [facility] [id number] [place] [address] 92873- 2513 Dec, [facility] [id number] [place] [address] 87862- 0996 Dec, Other chronic pain G89.29 [facility] [id number] [place] [address] 74977- 3827 Nov, Other chronic pain G89.29 [facility] [id number] [place] [address] 65058- 8046 25 Nov, 2016 Encounter for immunization Z23 [facility] [address] 24681- 0366 Nov, Other chronic pain G89.29 [facility] [address] 34827- 1581 Oct, Other chronic pain G89.29 [facility] [address] 39481- 8726 Oct, Back pain M54.9 [facility] [address] 30306- 2093 Sep, Back pain M54.9 [facility] [id number] [place] [address] 63290- 8508 Aug, [facility] [address] 66304- 5290 Aug, Back pain M54.9 [facility] [id number] [place] [address] 36924- 3149 July, Back pain M54.9 [facility] [id number] [place] [address] 42693- 7781 24 Jun, 2016 Weight loss R63.4 and Postural hypotension I95.1 [facility] [id number] [place] [address] 89798- 8644 Jun, Back pain M54.9 [facility] [id number] [place] [address] 22392- 4387 May, Back pain M54.9 [facility] [address] 87662- 5139 Apr, Back pain M54.9 [facility] [id number] [place] [address] 99235- 6226 Apr, Pure hypercholesterolemia E78.00 [facility] [id number] [place] [address] 91458- 2414 Apr, Hypertension I10 ; Back pain M54.9 ; Urge incontinence of urine N39.41 and [place] L84 [facility] [id number] [place] [address] 19009- 6435 Mar, [facility] [id number] [place] [address] 22164- 7845 Mar, Other chronic pain G89.29 [facility] [id number] [place] [address] 90211- 6180 Feb, [facility] [address] 86231- 7544 Jan, [facility] [id number] [place] [address] 51010- 3775 Dec, [facility] [id number] [place] [address] 94308- 3549 Nov, [facility] [id number] [place] [address] 81158- 3647 05 Oct, 2015 [facility] [id number] [place] [address] 39053- 5627 Sep, Back pain M54.9 [facility] [id number] [place] [address] 90752- 0226 17 Aug, 2015 Back pain M54.9 and Hypertension I10 [facility] [id number] [place] [address] 39026 -8188 13 Aug, 2015 Low back pain M54.5 and Other chronic pain G89.29 [facility] [id number] [place] [address] 57692- 3828 10 Aug, 2015 Back pain M54.9 [facility] [id number] [place] [address] 96198- 9665 July, Back pain M54.9 [facility] [address] 80211- 6675 06 Jun, 2015 Back pain M54.9 [place] [address] 95263- 9570 May, Back pain M54.9 [place] [address] 45915- 8305 04 Apr, 2015 Back pain M54.9 [place] [address] 92659- 0089 Mar, Back pain M54.9 [place] [address] 70721- 8774 Feb, Prostatitis N41.9 ; Arthritis M19.90 and Hypertension I10 [place] [address] 68012- 7025 15 Feb, 2015 [place] [address] 38791- 0524 Jan, [place] [address] 42254- 6347 Dec, Encounter for immunization Z23 [place] [address] 90279- 9514 Dec, [place] [address] 91594- 9807 Dec, Eye pain H57.10 [place] [address] 53984- 0226 Dec, Contusion of left leg S80.12XA and Right shoulder injury S49.91XA [place] [address] 47233- 5624 05 Dec, 2014 Cellulitis L03.90 ; Back pain M54.9 ; Urinary incontinence R32 and Need for czsrjgnyov-qfjjtwr-cgzhdfdyg (Tdap) vaccine Z23 [place] [address] 21989- 8524 Nov, Need for prophylactic vaccination with tetanus-diphtheria ( TD) V06.5 [facility] [address] [facility] [id number] [place] [address]- 8496 Nov, [facility] [address] [facility] [id number] [place] [address]- 2546 Oct, [facility] [address] [facility] [id number], [place] [address]- 2546 Sep, [facility] [address] [facility] [id number] [place] [address]- 2546 Sep, [facility] [address] [facility] [id number] [place] [address], [place] [address]- 2546 Aug, [facility] [id number] [address]- 2546 July, [facility] [address] [place] [address]- 2546 July, [facility] [address] [facility] [id number], [place] [address]- 9276 Jun, [facility] [address] [address]- 1956 Jun, [facility] [id number] [address]- 2546 May, [facility] [address], [place] [address]- 2546 May, [facility] [address] [facility] [id number], [place] [address]- 2546 Apr, [facility] [id number] [address]- 2546 Apr, [facility] [address] [facility] [id number], [place] [address]- 2546 Mar, [facility] [id number] [address]- 7130 Mar, [facility] [place] [facility] [address] [id number] [place] [address]- 6387 Mar, [facility] [place] [facility] [address] [id number] [place] [address]- 6747 Mar, [facility] [place] [facility] [address] [id number] [place] [address]- 0873 Mar, [facility] [place] [facility] [address] [id number] [place] [address]- 8239 Mar, [facility] [place] [facility] [address] [id number] [place] [address]- 8501 Mar, [facility] [place] [facility] [address] [id number] [place] [address]- 3826 Mar, [facility] [place] [facility] [address] [id number] [place] [address]- 8453 Mar, [facility] [place] [facility] [address] [id number] [place] [address]- 6138 Mar, [facility] [place] [facility] [address] [id number] [place] [address]- 4779 Mar, [facility] [place] [facility] [address] [id number] [place] [address]- 1742 Mar, [facility] [place] [facility] [address] [id number] [place] [address]- 4445 Mar, [facility] [place] [facility] [address] [id number] [place] [address]- 4232 Mar, [facility] [place] [facility] [address] [id number] [place] [address]- 8344 Feb, [facility] [place] [facility] [address] [id number] [place] [address]- 6970 Feb, [facility] [place] [facility] [address] [id number] [place] [address]- 7142 Feb, [facility] [place] [facility] [address] [id number] [place] [address]- 2996 Feb, [facility] [place] [facility] [address] [id number] [place] 5455 Feb, [facility] [place] [facility] [address] [id number] [place] 7046 Feb, [facility] [place] [facility] [address] [id number] [place] [address]- 8171 Jan, [facility] [place] [facility] [address] [id number] [place] [address]- 0298 Jan, [facility] [place] [facility] [address] [id number] [place] [address]- 5605 Dec, [facility] [place] [facility] [address] [id number] [place] [address]- 3390 Dec, [facility] [place] [facility] [address] [id number] [place] [address]- 2869 Dec, [facility] [place] [facility] [address] [id number] [place] [address]- 0228 Dec, [facility] [place] [facility] [address] [id number] [place] [address]- 0019 Dec, [facility] [place] [facility] [address] [id number] [place] [address]- 2844 Dec, [facility] [place] [facility] [address] [id number] [place] [address]- 0399 Nov, [facility] [place] [facility] [address] [id number], [place] [address]- 8344 Nov, [facility] [place] [facility] [address] [id number] [place] [address]- 0215 Oct, [facility] [place] [facility] [address] [id number] [place] [address]- 0365 Oct, [facility] [place] [facility] [address] [id number] [place] [address]- 8372 Sep, [facility] [place] [facility] [address] [id number] [place] [address]- 2126 Sep, [facility] [place] [facility] [address] [id number] [place] [address]- 1724 Sep, [facility] [place] [facility] [address] [id number] [place] [address]- 4746 Sep, [facility] [place] [facility] [address] [id number] [place] [address]- 5474 July, [facility] [place] [facility] [address] [id number] [place] [address]- 5136 July, [facility] [place] [facility] [address] [id number] [place] [address]- 4822 July, [facility] [place] [facility] [address] [id number] [place] [address]- 4505 July, [facility] [place] [facility] [address] [id number] [place] [address]- 6272 Feb, [facility] [place] [facility] [address] [id number] [place] [address]- 4587 Feb, [facility] [place] [facility] [address] [id number] [place] [address]- 8907 Jan, [facility] [place] [facility] [address] [id number] [place] [address]- 7035 14 Jan, 2013 [facility] [place] [facility] [address] [id number] [place] [address]- 1234 Jan, [facility] [place] [facility] [address] [id number] [place] [address]- 0190 Jan, [facility] [place] [facility] [address] [id number] [place] [address]- 0806 30 Nov, 2012 [facility] [place] [facility] [address] [id number] [place] [address] 2546 27 Aug, 2012 [facility] [place] [facility] [address] [id number] [place] [address]- 3272 July, [facility] [place] [facility] [address] [id number] [place] [address]- 4645 Jun, [facility] [place] [facility] [address] [id number] [place] [address]- 3406 Apr, [facility] [place] [facility] [address] [facility] [id number] [place] [address]- 0928 Mar, [facility] [place] [facility] [address] [id number] [place] [address]- 9052 Mar, [facility] [place] [facility] [address] [id number] [place] [address]- 7567 Jan, [facility] [place] [facility] [address] [id number] [place] [address]- 1353 Jan, [facility] [place] [facility] [address] [id number] [place] [address]- 2547 Jan, [facility] [place] [facility] [address] [id number], [place] [address]- 5048 Jan, [facility] [place] [facility] [address] [id number], [place] [address]- 6787 Dec, [facility] [place] [facility] [address] [id number], [place] [address]- 9138 Dec, [facility] [place] [facility] [address] [id number], [place] [address]- 4065 Dec, [facility] [place] [facility] [address] [id number], [place] [address]- 5911 Dec, [facility] [place] [facility] [address] [id number] [place] [address]- 8872 Nov, [facility] [place] [facility] [address] [facility] [id number], [place] [address]- 3456 Oct, [facility] [place] [facility] [address] [facility] [id number], [place] [address] 2546 July, [facility] [place] [facility] [address] [id number] [place] [address]- 6810 06 Mar, 2011 [facility] [address] [id number] [place] [address]- 4317 17 Jan, 2011 [facility] [place] [facility] [address] [id number] [place] [address]- 7671 17 Jan, 2011 [facility] [address] [id number] [place] [address]- 7318 Dec, [facility] [place] [facility] [address] [id number] [place] [address]- 3063 Dec, [facility] [address] [id number] [place] [address]- 3968 Dec, [facility] [address] [id number] [place] [address]- 5988 Nov, [facility] [address] [id number] [place] [address]- 9286 July, [facility] [address] [id number] [place] [address]- 7501 14 Jun, 2010 [facility] [address] [id number] [place] [address]- 3570 May, [facility] [address] [id number] [place] [address]- 5929 14 Apr, 2010 [facility] [place] [facility] [address] [id number] [place] [address]- 7004 10 Apr, 2010 [facility] [address] [id number] [place] [address]- 0362 14 Mar, 2010 [facility] [place] [facility] [address] [id number] [place] [address]- 2749 Jan, [facility] [place] [facility] [address] [id number] [place] [address]- 4623 Dec, [facility] [address] [id number] [place] 4348 Jun, [facility] [address] [facility] [id number] [place] [address]- 7736 Jun, IMMUNIZATIONS No Known Immunizations SOCIAL HISTORY Never Assessed REASON FOR VISIT Controlled Med Refill 12/03 PLAN OF CARE VITAL SIGNS MEDICATIONS Medication Instructions Dosage Frequency Start Date End Date Duration Status Hydrocodone-Acetaminophen 5-325 MG Orally 3 times a day 1 tablet 8h Nov 28 days Active RESULTS No Results PROCEDURES No Known procedures INSTRUCTIONS MEDICATIONS ADMINISTERED No Known Medications MEDICAL (GENERAL) HISTORY Type Description Date Medical History prostatism Medical History chronic pain Medical History hypertension
--- OUTSIDE RECORDS SUMMARY | 2018-01-12 12:29 | XMS REPORT ---
Author Author RONAL CAMARGO Organization [facility] Address [address] [place] [address] Care Team Providers Care Lost Charge Card Clerk Name Role Phone RONAL CAMARGO Unavailable PROBLEMS Type Condition ICD9-CM Code XOK35-WU Code Onset Dates Condition Status SNOMED Code Problem Hypertension I10 Active 61102240 Problem Urge incontinence of urine N39.41 Active 78984961 Problem Arthritis M19.90 Active 4077072 Problem Back pain M54.9 Active 622852606 Problem Functional diarrhea K59.1 Active 17173181 Problem Right inguinal hernia K40.90 Active 767994784 Problem Pure hypercholesterolemia E78.00 Active 265793153 Problem Sublette L84 Active 094237696 Problem Prostatism N40.0 Active 72262111 Problem Other chronic pain G89.29 Active 45580340 ALLERGIES No Known Allergies ENCOUNTERS Encounter Location Date Diagnosis [place] [id number] [place] [address] 92666- 9022 Oct, Back pain M54.9 [facility] [id number] [place] [address] 31111- 7957 Oct, [facility] [id number] [place] [address] 47644- 8301 Sep, Back pain M54.9 [facility] [id number] [place] [address] 14184- 0563 Aug, Back pain M54.9 ; Prostatism N40.0 ; Functional diarrhea K59.1 and Right inguinal hernia K40.90 [facility] [id number] [place] [address] 49687- 5978 July, Other chronic pain G89.29 [facility] [id number] [place] [address] 41722- 0977 Jun, Other chronic pain G89.29 [facility] [id number] [place] [address] 16512- 5286 May, Other chronic pain G89.29 [facility] [id number] [place] [address] 74536- 3423 15 Apr, 2017 Other chronic pain G89.29 [facility] [address] 48633- 9830 Mar, Other chronic pain G89.29 [facility] [id number] [place] [address] 56169- 9682 Feb, Other chronic pain G89.29 [facility] [id number] [place] [address] 81806 -7656 Feb, Acute upper respiratory infection, unspecified J06.9 and Other viral agents as the cause of diseases classified elsewhere B97.89 [facility] [id number] [place] [address] 40601- 5562 Jan, [facility] [id number] [place] [address] 04102- 6932 Jan, Back pain M54.9 and Prostatism N40.0 [facility] [id number] [place] [address] 10609- 1619 Jan, Other chronic pain G89.29 [facility] [id number] [place] [address] 84655- 5674 Dec, [facility] [id number] [place] [address] 56796- 7793 Dec, Other chronic pain G89.29 [facility] [id number] [place] [address] 68031- 1101 Nov, Other chronic pain G89.29 [facility] [id number] [place] [address] 56673- 9298 Nov, Encounter for immunization Z23 [facility] [id number] [place] [address] 81209- 1862 Nov, Other chronic pain G89.29 [facility] [id number] [place] [address] 17365- 1592 Oct, Other chronic pain G89.29 [facility] [id number] [place] [address] 18358- 8124 07 Oct, 2016 Back pain M54.9 [facility] [address] 22607- 8773 Sep, Back pain M54.9 [facility] [address] 41237- 1442 Aug, [place] [id number] [place] [address] 28240- 8464 Aug, Back pain M54.9 [place] [id number] [place] [address] 89719- 5770 July, Back pain M54.9 [facility] [id number] [place] [address] 58071- 8209 Jun, Weight loss R63.4 and Postural hypotension I95.1 [place] [id number] [place] [address] 77862- 1109 14 Jun, 2016 Back pain M54.9 [place] [id number] [place] [address] 45982- 0811 May, Back pain M54.9 [facility] [id number] [place] [address] 16283- 1397 Apr, Back pain M54.9 [facility] [id number] [place] [address] 31421- 3493 Apr, Pure hypercholesterolemia E78.00 [facility] [id number] [place] [address] 35400- 2266 Apr, Hypertension I10 ; Back pain M54.9 ; Urge incontinence of urine N39.41 and Sublette L84 [facility] [id number] [place] [address] 83309- 4604 Mar, [facility] [id number] [place] [address] 63834- 4077 Mar, Other chronic pain G89.29 [facility] [id number] [place] [address] 39040- 6541 Feb, [facility] [id number] [place] [address] 49516- 6611 Jan, [facility] [id number] [place] [address] 72660- 7962 Dec, [facility] [id number] [place] [address] 88871- 9743 Nov, [facility] [id number] [place] [address] 82336- 5598 Oct, [facility] [id number] [place] [address] 16779- 4403 Sep, Back pain M54.9 [facility] [id number] [place] [address] 42873- 9586 17 Aug, 2015 Back pain M54.9 and Hypertension I10 [facility] [id number] [place] [address] 14906 -6932 13 Aug, 2015 Low back pain M54.5 and Other chronic pain G89.29 [facility] [id number] [place] [address] 21455- 5783 10 Aug, 2015 Back pain M54.9 [facility] [id number] [place] [address] 70444- 2326 July, Back pain M54.9 [facility] [id number] [place] [address] 87649- 1847 06 Jun, 2015 Back pain M54.9 [facility] [address] [place] [address]- 3887 09 May, 2015 Back pain M54.9 [place] [address] 53019- 0906 04 Apr, 2015 Back pain M54.9 [place] [address] 08347- 9899 Mar, Back pain M54.9 [place] [address] 10779- 6494 Feb, Prostatitis N41.9 ; Arthritis M19.90 and Hypertension I10 [place] [address] 73259- 4350 Feb, [place] [address] 11112- 7089 Jan, [place] [address] 41906- 1107 Dec, Encounter for immunization Z23 [place] [address] 36538- 4236 Dec, [place] [address] 90884- 7196 Dec, Eye pain H57.10 [place] [address] 82865- 8002 Dec, Contusion of left leg S80.12XA and Right shoulder injury S49.91XA [place] [address] 05380- 3561 Dec, Cellulitis L03.90 ; Back pain M54.9 ; Urinary incontinence R32 and Need for fakahaopjm-uunzvbi-wgfytrlfn (Tdap) vaccine Z23 [place] [id number] [place] [address] 78838- 4213 30 Nov, 2014 Need for prophylactic vaccination with tetanus-diphtheria ( TD) V06.5 [place] [address] [place] [address]- 7644 Nov, [facility] [place] [facility] [address] [id number] [place] [address]- 7676 Oct, [facility] [place] [facility] [address] [id number] [place] [address]- 8148 Sep, [facility] [place] [facility] [address] [id number] [place] [address]- 7127 Sep, [facility] [place] [facility] [address] [id number] [place] [address]- 1701 Aug, [facility] [place] [facility] [address] [id number] [place] [address]- 8780 July, [facility] [place] [facility] [address] [id number] [place] [address]- 5731 July, [facility] [place] [facility] [address] [id number] [place] [address]- 5223 Jun, [facility] [place] [facility] [address] [id number] [place] [address]- 0203 Jun, [facility] [place] [facility] [address] [id number] [place] [address]- 8644 May, [facility] [place] [facility] [address] [id number] [place] [address]- 7648 May, [facility] [place] [facility] [address] [id number] [place] [address]- 7245 Apr, [facility] [place] [facility] [address] [id number] [place] [address]- 1095 Apr, [facility] [place] [facility] [address] [id number] [place] [address]- 2068 Mar, [facility] [place] [facility] [address] [id number] [place] [address]- 1322 Mar, [facility] [place] [facility] [address] [id number] [place] [address]- 9961 Mar, [facility] [place] [facility] [address] [id number] [place] [address]- 0019 Mar, [facility] [place] [facility] [address] [id number] [place] [address]- 0969 Mar, [facility] [place] [facility] [address] [id number] [place] [address]- 1404 Mar, [facility] [place] [facility] [address] [id number] [place] [address]- 1558 Mar, [facility] [address] [id number] [place] [address]- 1109 Mar, [facility] [place] [facility] [address] [id number] [place] [address]- 3803 Mar, [facility] [address] [id number] [place] [address]- 6024 Mar, [facility] [address] [id number] [place] [address]- 8323 Mar, [facility] [place] [facility] [address] [id number] [place] [address]- 9277 Mar, [facility] [place] [facility] [address] [id number] [place] [address]- 6361 Mar, [facility] [place] [facility] [address] [id number] [place] [address]- 4345 Mar, [facility] [place] [facility] [address] [id number] [place] [address]- 2736 Feb, [facility] [place] [facility] [address] [id number] [place] [address]- 2318 Feb, [facility] [place] [facility] [address] [id number] [place] [address]- 3465 Feb, [facility] [place] [facility] [address] [id number] [place] [address]- 7999 Feb, [facility] [place] [facility] [address] [id number] [place] [address]- 2546 Feb, [facility] [place] [facility] [address] [id number] [place] [address]- 6164 Feb, [facility] [place] [facility] [address] [id number] [place] [address]- 6671 Jan, [facility] [place] [facility] [address] [id number] [place] [address]- 9117 Jan, [facility] [place] [facility] [address] [id number] [place] [address]- 3126 Dec, [facility] [place] [facility] [address] [id number] [place] [address]- 9086 Dec, [facility] [place] [facility] [address] [id number] [place] [address]- 1549 Dec, [facility] [place] [facility] [address] [id number] [place] [address]- 3899 Dec, [facility] [place] [facility] [address] [id number] [place] [address]- 7729 Dec, [facility] [place] [facility] [address] [id number] [place] [address]- 7465 Dec, [facility] [place] [facility] [address] [id number] [place] [address]- 1622 Nov, [facility] [place] [facility] [address] [id number] [place] [address]- 7785 Nov, [facility] [place] [facility] [address] [id number] [place] [address]- 9026 Oct, [facility] [place] [facility] [address] [id number] [place] [address]- 3523 Oct, [facility] [place] [facility] [address] [id number] [place] [address]- 9769 Sep, [facility] [place] [facility] [address] [id number] [place] [address]- 6956 Sep, [facility] [place] [facility] [address] [id number] [place] [address]- 5372 Sep, [facility] [address] [id number] [place] [address]- 5372 Sep, [facility] [address] [id number] [place] [address]- 7356 July, [facility] [address] [id number] [place] [address]- 6042 July, [facility] [address] [id number] [place] [address]- 3844 July, [facility] [address] [id number] [place] [address]- 5115 July, [facility] [address] [id number] [place] [address]- 8054 Feb, [facility] [address] [id number] [place] [address]- 1743 Feb, [facility] [address] [id number] [place] [address]- 5536 Jan, [facility] [address] [id number] [place] [address]- 1528 Jan, [facility] [address] [id number] [place] [address]- 2616 Jan, [facility] [address] [id number] [place] [address]- 4070 Jan, [facility] [address] [id number] [place] [address]- 8564 30 Nov, 2012 [facility] [place] [facility] [address] [id number] [place] [address]- 1325 Aug, [facility] [place] [facility] [address] [id number] [place] [address]- 0976 July, [facility] [address] [id number] [place] [address]- 6496 Jun, [facility] [place] [facility] [address] [id number] [place] [address]- 6080 Apr, [facility] [place] [facility] [address] [id number] [place] [address]- 0699 Mar, [facility] [place] [facility] [address] [id number] [place] [address]- 1331 Mar, [facility] [place] [facility] [address] [id number] [place] [address]- 0871 Jan, [facility] [place] [facility] [address] [id number] [place] [address]- 6379 Jan, [facility] [place] [facility] [address] [id number] [place] [address]- 9358 Jan, [facility] [place] [facility] [address] [id number] [place] [address]- 2276 Jan, [facility] [place] [facility] [address] [id number] [place] [address]- 3495 Dec, [facility] [place] [facility] [address] [id number] [place] [address]- 0353 Dec, [facility] [place] [facility] [address] [id number], [place] [address]- 1742 Dec, [facility] [place] [facility] [address] [id number], [place] [address]- 8484 Dec, [facility] [place] [facility] [address] [id number], [place] [address]- 9920 Nov, [facility] [place] [facility] [address] [id number] [place] [address]- 6198 Oct, [facility] [place] [facility] [address] [id number] [place] [address]- 1716 July, [facility] [place] [facility] [address] [id number] [place] [address]- 5271 Mar, [facility] [place] [facility] [address] [id number] [place] [address]- 4796 17 Jan, 2011 [facility] [place] [address] [id number] [place] [address]- 5876 17 Jan, 2011 [facility] [address] [id number] [place] [address]- 7786 Dec, [facility] [address] [id number] [place] [address] 2546 17 Dec, 2010 [facility] [address] [id number] [place] [address]- 7346 17 Dec, 2010 [facility] [address] [id number] [place] [address]- 9883 14 Nov, 2010 [facility] [address] [id number] [place] [address] 2546 July, [facility] [address] [facility] [id number] [place] [address]- 4433 14 Jun, 2010 [facility] [address] [id number] [place] [address]- 3472 14 May, 2010 [facility] [address] [facility] [id number] [place] [address]- 8495 14 Apr, 2010 [facility] [address] [facility] [id number] [place] [address]- 3706 10 Apr, 2010 [facility] [address] [facility] [id number] [place] [address]- 2423 14 Mar, 2010 [facility] [address] [facility] [id number], [place] [address] 2546 Jan, [facility] [address] [id number] [place] [address]- 2783 Dec, [facility] [address] [facility] [id number], [place] [address]- 3036 17 Jun, 2009 [facility] [place] [address] [facility] [id number], [place] [address]- 2652 13 Jun, 2009 IMMUNIZATIONS No Known Immunizations SOCIAL HISTORY Never Assessed REASON FOR VISIT Pain management (chronic) [facility], Medication refill , PT fears he has a hernia, PT has had loose stools the past month , PT is having major bowel issues PLAN OF CARE Activity Details Follow Up 4 Months Reason: VITAL SIGNS Height 66 in 2017-09-10 Weight 168 lbs 2017-09-10 Temperature 98 degrees Fahrenheit 2017-09-10 Heart Rate 62 bpm 2017-09-10 Respiratory Rate 20 2017-09-10 Oximetry on room air:95 % 2017-09-10 BMI 27.11 kg/m2 2017-09-10 Blood pressure systolic 140 mmHg 2017-09-10 Blood pressure diastolic 84 mmHg 2017-09-10 MEDICATIONS Medication Instructions Dosage Frequency Start Date End Date Duration Status Proscar 5 mg Orally Once a day 1 tablet 24h Jan, 30 day(s) Active Lomotil 2.5-0.025 MG Orally 2 times a day 1 tablet as needed 12h Aug, Active Flomax 0.4 MG Orally Once a day 1 capsule 24h Active Hydrocodone-Acetaminophen 5-325 MG Orally 3 times a day 1 tablet 8h Aug 28 days Active RESULTS No Results PROCEDURES Procedure Date Ordered Result Body Site LAB NOT BILLED BY [facility] September 10, 2017 [facility] VISIT ESTABLISHED PATIENT September 10, 2017 [facility] VISIT ESTABLISHED PATIENT September 10, 2017 KAROL LORA* September 10, 2017 INSTRUCTIONS MEDICATIONS ADMINISTERED No Known Medications MEDICAL (GENERAL) HISTORY Type Description Date Medical History prostatism Medical History chronic pain Medical History hypertension
--- OUTSIDE RECORDS SUMMARY | 2018-01-12 12:29 | XMS REPORT ---
Author Author RONAL CAMARGO Organization [facility] [place] Address [address] [place] [address] Care Team Providers Care Getter Welder Name Role Phone RONAL CAMARGO Unavailable PROBLEMS Type Condition ICD9-CM Code IPU00-IQ Code Onset Dates Condition Status SNOMED Code Problem Hypertension I10 Active 12043603 Problem Urge incontinence of urine N39.41 Active 27979895 Problem Arthritis M19.90 Active 6480088 Problem Back pain M54.9 Active 125797990 Problem Functional diarrhea K59.1 Active 66654193 Problem Right inguinal hernia K40.90 Active 537988850 Problem Pure hypercholesterolemia E78.00 Active 648445233 Problem Paxton L84 Active 195834889 Problem Prostatism N40.0 Active 55154025 Problem Other chronic pain G89.29 Active 63494901 ALLERGIES No Information ENCOUNTERS Encounter Location Date Diagnosis [facility] [place] [id number] [place] [address] 47286- 6089 Oct, Back pain M54.9 [facility] [place] [id number] [place] [address] 11536- 2521 Oct, [facility] [place] [id number] [place] [address] 48544- 2689 Sep, Back pain M54.9 [facility] [place] [id number] [place] [address] 26171- 2633 Aug, Back pain M54.9 ; Prostatism N40.0 ; Functional diarrhea K59.1 and Right inguinal hernia K40.90 [facility] [place] [id number] [place] [address] 27079- 8504 July, Other chronic pain G89.29 [facility] [place] [id number] [place] [address] 24899- 1463 Jun, Other chronic pain G89.29 [facility] [place] [id number] [place] [address] 46478- 1204 May, Other chronic pain G89.29 [facility] [place] [id number] [place] [address] 270803- 3441 15 Apr, 2017 Other chronic pain G89.29 [facility] [place] [id number] [place] [address] 92430- 7997 Mar, Other chronic pain G89.29 [facility] [place] [id number] [place] [address] 22162- 2535 Feb, Other chronic pain G89.29 [facility] [id number] [place] [address] 08400 -3489 Feb, Acute upper respiratory infection, unspecified J06.9 and Other viral agents as the cause of diseases classified elsewhere B97.89 [facility] [place] [id number] [place] [address] 95433- 0028 Jan, [facility] [place] [id number] [place] [address] 83432- 6872 Jan, Back pain M54.9 and Prostatism N40.0 [facility] [place] [id number] [place] [address] 31673- 2194 Jan, Other chronic pain G89.29 [facility] [place] [id number] [place] [address] 99798- 6000 Dec, [facility] [place] [id number] [place] [address] 73648- 9199 Dec, Other chronic pain G89.29 [facility] [place] [id number] [place] [address] 25031- 6505 Nov, Other chronic pain G89.29 [facility] [place] [id number] [place] [address] 44626- 3548 Nov, Encounter for immunization Z23 [facility] [place] [id number] [place] [address] 70285- 7885 Nov, Other chronic pain G89.29 [facility] [place] [address] 78041- 1786 Oct, Other chronic pain G89.29 [facility] [place] [id number] [place] [address] 65566- 7921 Oct, Back pain M54.9 [facility] [place] [address] 75044- 5205 Sep, Back pain M54.9 [place] [address] 06690- 0500 Aug, [place] [id number] [place] [address] 49546- 0452 Aug, Back pain M54.9 [place] [address] 88197- 8846 July, Back pain M54.9 [place] [id number] [place] [address] 50059- 8313 Jun, Weight loss R63.4 and Postural hypotension I95.1 [place] [id number] [place] [address] 35982- 0661 Jun, Back pain M54.9 [place] [id number] [place] [address] 36911- 5540 May, Back pain M54.9 [place] [id number] [place] [address] 96496- 5597 Apr, Back pain M54.9 [facility] [place] [id number] [place] [address] 61565- 8508 Apr, Pure hypercholesterolemia E78.00 [place] [id number] [place] [address] 91431- 6081 06 Apr, 2016 Hypertension I10 ; Back pain M54.9 ; Urge incontinence of urine N39.41 and Paxton L84 [facility] [place] [id number] [place] [address] 50044- 5728 Mar, [facility] [place] [id number] [place] [address] 38582- 5502 Mar, Other chronic pain G89.29 [facility] [place] [id number] [place] [address] 50395- 9530 Feb, [facility] [place] [address] [facility] [id number] [place] [address] 24793- 0408 Jan, [facility] [place] [id number] [place] [address] 14241- 4142 Dec, [facility] [place] [id number] [place] [address] 73302- 8057 Nov, [facility] [place] [id number] [place] [address] 84078- 3229 Oct, [facility] [place] [id number] [place] [address] 39372- 2816 Sep, Back pain M54.9 [facility] [place] [id number] [place] [address] 06879- 7445 17 Aug, 2015 Back pain M54.9 and Hypertension I10 [facility] [address] [place] [address] 66479 -4021 13 Aug, 2015 Low back pain M54.5 and Other chronic pain G89.29 [facility] [place] [id number] [place] [address] 00989- 9885 10 Aug, 2015 Back pain M54.9 [facility] [place] [id number] [place] [address] 99910- 5323 July, Back pain M54.9 [facility] [place] [id number] [place] [address] 70764- 4493 06 Jun, 2015 Back pain M54.9 [facility] [place] [address] 59959- 0778 09 May, 2015 Back pain M54.9 [place] [address] 01045- 2056 04 Apr, 2015 Back pain M54.9 [place] [address] 49755- 0186 Mar, Back pain M54.9 [place] [address] 92639- 7171 Feb, Prostatitis N41.9 ; Arthritis M19.90 and Hypertension I10 [place] [address] 20687- 3092 Feb, [place] [address] 09290- 8097 Jan, [place] [address] 54949- 0590 Dec, Encounter for immunization Z23 [place] [address] 04920- 9277 Dec, [place] [address] 51079- 6727 Dec, Eye pain H57.10 [place] [address] 71323- 5852 Dec, Contusion of left leg S80.12XA and Right shoulder injury S49.91XA [place] [address] 79392- 1943 Dec, Cellulitis L03.90 ; Back pain M54.9 ; Urinary incontinence R32 and Need for lpmzdopydm-mnhzecp-ogjmoamzy (Tdap) vaccine Z23 [place] [id number] [place] [address] 69994- 8578 30 Nov, 2014 Need for prophylactic vaccination with tetanus-diphtheria ( TD) V06.5 [place] [address] [place] [address]- 3649 Nov, [facility] [place] [facility] [address] [id number] [place] [address]- 7632 Oct, [facility] [place] [facility] [address] [id number] [place] [address]- 6523 Sep, [facility] [place] [facility] [address] [id number] [place] [address]- 1313 Sep, [facility] [place] [facility] [address] [id number] [place] [address]- 8938 Aug, [facility] [place] [facility] [address] [id number] [place] [address]- 7858 July, [facility] [place] [facility] [address] [id number] [place] [address]- 6808 July, [facility] [place] [facility] [address] [id number] [place] [address]- 6879 Jun, [facility] [place] [facility] [address] [id number] [place] [address]- 6791 Jun, [facility] [place] [facility] [address] [id number] [place] [address]- 1005 May, [facility] [place] [facility] [address] [id number] [place] [address]- 2624 May, [facility] [place] [facility] [address] [id number] [place] [address]- 4930 Apr, [facility] [place] [facility] [address] [id number] [place] [address]- 4305 Apr, [facility] [place] [facility] [address] [id number] [place] [address]- 7191 Mar, [facility] [place] [facility] [address] [id number] [place] [address]- 4374 Mar, [facility] [place] [facility] [address] [id number], [place] [address]- 9877 Mar, [facility] [place] [facility] [address] [id number] [place] [address]- 1044 Mar, [facility] [place] [facility] [address] [id number] [place] [address]- 8449 Mar, [facility] [place] [facility] [address] [id number] [place] [address]- 3444 Mar, [facility] [place] [facility] [address] [id number] [place] [address]- 6106 Mar, [facility] [place] [facility] [address] [id number] [place] [address]- 6991 Mar, [facility] [place] [facility] [address] [id number] [place] [address]- 6187 Mar, [facility] [place] [facility] [address] [id number] [place] [address]- 6233 Mar, [facility] [place] [facility] [address] [id number] [place] [address]- 8585 Mar, [facility] [place] [facility] [address] [id number] [place] [address]- 2903 Mar, [facility] [place] [facility] [address] [id number] [place] [address]- 4339 Mar, [facility] [place] [facility] [address] [id number] [place] [address]- 5686 Mar, [facility] [place] [facility] [address] [id number] [place] [address]- 4720 Feb, [facility] [place] [facility] [address] [id number] [place] [address]- 4117 Feb, [facility] [place] [facility] [address] [id number] [place] [address]- 5952 Feb, [facility] [place] [facility] [address] [id number] [place] [address]- 4686 Feb, [facility] [place] [facility] [address] [id number] [place] [address]- 2896 Feb, [facility] [place] [facility] [address] [id number] [place] [address]- 5224 Feb, [facility] [place] [facility] [address] [id number] [place] [address]- 7830 Jan, [facility] [place] [facility] [address] [id number] [place] [address]- 7842 Jan, [facility] [place] [facility] [address] [id number] [place] [address]- 4774 Dec, [facility] [place] [facility] [address] [id number] [place] [address]- 7671 Dec, [facility] [place] [facility] [address] [id number] [place] [address]- 5274 Dec, [facility] [place] [facility] [address] [id number] [place] [address]- 8604 Dec, [facility] [place] [facility] [address] [id number] [place] [address]- 0094 Dec, [facility] [place] [facility] [address] [id number] [place] [address]- 3767 Dec, [facility] [place] [facility] [address] [id number] [place] [address]- 6641 Nov, [facility] [place] [facility] [address] [id number] [place] [address]- 4863 Nov, [facility] [place] [facility] [address] [id number], [place] [address]- 2315 Oct, [facility] [place] [facility] [address] [id number] [place] [address]- 8862 Oct, [facility] [place] [facility] [address] [id number] [place] [address]- 8381 Sep, [facility] [place] [facility] [address] [id number] [place] [address]- 7288 Sep, [facility] [place] [facility] [address] [id number] [place] [address]- 0632 Sep, [facility] [address] [id number] [place] [address]- 7453 Sep, [facility] [address] [id number] [place] [address]- 7162 July, [facility] [address] [id number] [place] [address]- 2625 July, [facility] [address] [id number] [place] [address]- 3043 July, [facility] [address] [id number] [place] [address]- 3898 July, [facility] [address] [id number] [place] [address]- 1653 Feb, [facility] [address] [id number] [place] [address]- 1623 Feb, [facility] [address] [id number] [place] [address]- 3193 Jan, [facility] [address] [id number] [place] [address]- 2799 Jan, [facility] [address] [id number] [place] [address]- 4077 Jan, [facility] [address] [id number] [place] [address]- 7967 Jan, [facility] [address] [id number] [place] [address]- 4370 Nov, [facility] [place] [facility] [address] [id number] [place] [address]- 4169 Aug, [facility] [place] [facility] [address] [id number] [place] [address]- 2356 July, [facility] [address] [id number] [place] [address]- 8065 Jun, [facility] [place] [facility] [address] [id number] [place] [address]- 4831 Apr, [facility] [place] [facility] [address] [id number] [place] [address]- 0886 Mar, [facility] [place] [facility] [address] [id number] [place] [address]- 4746 Mar, [facility] [place] [facility] [address] [id number] [place] [address]- 5292 Jan, [facility] [place] [facility] [address] [id number] [place] [address]- 8943 Jan, [facility] [place] [facility] [address] [id number] [place] [address]- 1396 Jan, [facility] [place] [facility] [address] [id number] [place] [address]- 2361 Jan, [facility] [place] [facility] [address] [id number], [place] [address]- 5928 Dec, [facility] [place] [facility] [address] [id number] [place] [address]- 2381 Dec, [facility] [place] [facility] [address] [facility] [id number], [place] [address]- 5392 Dec, [facility] [place] [facility] [address] [id number], [place] [address]- 7286 Dec, [facility] [place] [facility] [address] [id number], [place] [address]- 1396 Nov, [facility] [place] [facility] [address] [id number], [place] [address]- 0736 Oct, [facility] [place] [facility] [address] [id number], [place] [address]- 8506 July, [facility] [place] [facility] [address] [id number], [place] [address]- 0266 Mar, [facility] [place] [facility] [address] [id number], [place] [address]- 1076 17 Jan, 2011 [facility] [address] [facility] [id number] [place] [address]- 3436 17 Jan, 2011 [facility] [address] [facility] [id number] [place] [address]- 9716 Dec, [facility] [address] [facility] [id number] [place] [address]- 9106 17 Dec, 2010 [facility] [address] [facility] [id number] [place] [address]- 0186 17 Dec, 2010 [facility] [address] [facility] [id number] [place] [address]- 5424 14 Nov, 2010 [facility] [address] [facility] [id number] [place] [address] 2546 July, [facility] [address] [address]- 5070 14 Jun, 2010 [facility] [address] [facility] [id number] [place] [address]- 1311 14 May, 2010 [facility] [id number] [place] [address]- 6973 14 Apr, 2010 [facility] [address] [id number] [place] [address]- 9476 10 Apr, 2010 [facility] [address] [id number], [place] [address]- 2305 14 Mar, 2010 [facility] [address] [facility] [id number], [place] [address] 2546 Jan, [facility] [address] [facility] [id number], [place] [address]- 3201 Dec, [facility] [address] [facility] [id number], [place] [address]- 5106 17 Jun, 2009 [facility] [address] [id number], [place] [address]- 9560 13 Jun, 2009 IMMUNIZATIONS No Known Immunizations SOCIAL HISTORY Never Assessed REASON FOR VISIT hydrocodone-08/13/17 PLAN OF CARE VITAL SIGNS MEDICATIONS Medication Instructions Dosage Frequency Start Date End Date Duration Status Hydrocodone-Acetaminophen 5-325 MG Orally 3 times a day 1 tablet 8h July 28 days Active RESULTS No Results PROCEDURES No Known procedures INSTRUCTIONS MEDICATIONS ADMINISTERED No Known Medications MEDICAL (GENERAL) HISTORY Type Description Date Medical History prostatism Medical History chronic pain Medical History hypertension
--- OUTSIDE RECORDS SUMMARY | 2018-01-12 12:29 | XMS REPORT ---
Author Author RONAL CAMARGO Organization [facility] Address [address] [place] [address] Care Team Providers Care School Bus Technician Name Role Phone RONAL CAMARGO Unavailable PROBLEMS Type Condition ICD9-CM Code QRI29-KD Code Onset Dates Condition Status SNOMED Code Problem Hypertension I10 Active 46516395 Problem Urge incontinence of urine N39.41 Active 07080588 Problem Arthritis M19.90 Active 2413744 Problem Back pain M54.9 Active 735630710 Problem Functional diarrhea K59.1 Active 32293022 Problem Right inguinal hernia K40.90 Active 362496609 Problem Pure hypercholesterolemia E78.00 Active 579204001 Problem Escalon L84 Active 057114763 Problem Prostatism N40.0 Active 02934523 Problem Other chronic pain G89.29 Active 66149044 ALLERGIES No Information ENCOUNTERS Encounter Location Date Diagnosis [facility] [id number] [place] [address] 81924- 4233 Oct, Back pain M54.9 [facility] [id number] [place] [address] 23201- 5917 Oct, [facility] [id number] [place] [address] 13865- 5152 Sep, Back pain M54.9 [facility] [id number] [place] [address] 44650- 7420 Aug, Back pain M54.9 ; Prostatism N40.0 ; Functional diarrhea K59.1 and Right inguinal hernia K40.90 [facility] [id number] [place] [address] 85677- 8520 July, Other chronic pain G89.29 [facility] [id number] [place] [address] 83930- 6672 Jun, Other chronic pain G89.29 [facility] [id number] [place] [address] 42783- 7252 May, Other chronic pain G89.29 [facility] [id number] [place] [address] 878784- 4449 15 Apr, 2017 Other chronic pain G89.29 [facility] [id number] [place] [address] 34646- 2778 Mar, Other chronic pain G89.29 [facility] [id number] [place] [address] 92988- 7169 Feb, Other chronic pain G89.29 [facility] [id number] [place] [address] 19512 -9530 Feb, Acute upper respiratory infection, unspecified J06.9 and Other viral agents as the cause of diseases classified elsewhere B97.89 [facility] [id number] [place] [address] 05302- 4582 Jan, [facility] [id number] [place] [address] 15975- 2000 Jan, Back pain M54.9 and Prostatism N40.0 [facility] [id number] [place] [address] 22163- 0669 Jan, Other chronic pain G89.29 [facility] [id number] [place] [address] 43477- 2371 Dec, [facility] [id number] [place] [address] 84756- 9063 Dec, Other chronic pain G89.29 [facility] [id number] [place] [address] 22568- 3827 Nov, Other chronic pain G89.29 [facility] [id number] [place] [address] 44399- 1284 Nov, Encounter for immunization Z23 [facility] [id number] [place] [address] 28916- 1576 Nov, Other chronic pain G89.29 [facility] [address] 41447- 3904 Oct, Other chronic pain G89.29 [facility] [id number] [place] [address] 58454- 8774 Oct, Back pain M54.9 [facility] [address] 18372- 5520 Sep, Back pain M54.9 [place] [address] 08307- 0917 Aug, [place] [id number] [place] [address] 99575- 1908 Aug, Back pain M54.9 [place] [address] 86923- 1946 July, Back pain M54.9 [place] [id number] [place] [address] 11463- 2866 Jun, Weight loss R63.4 and Postural hypotension I95.1 [place] [id number] [place] [address] 52533- 0262 Jun, Back pain M54.9 [place] [id number] [place] [address] 84952- 9164 May, Back pain M54.9 [place] [id number] [place] [address] 79866- 5038 Apr, Back pain M54.9 [facility] [id number] [place] [address] 49156- 3453 Apr, Pure hypercholesterolemia E78.00 [place] [id number] [place] [address] 05258- 5195 06 Apr, 2016 Hypertension I10 ; Back pain M54.9 ; Urge incontinence of urine N39.41 and Escalon L84 [facility] [id number] [place] [address] 41155- 0968 Mar, [facility] [id number] [place] [address] 67093- 0407 Mar, Other chronic pain G89.29 [facility] [id number] [place] [address] 99708- 1783 Feb, [facility] [address] [facility] [id number] [place] [address] 56485- 4848 Jan, [facility] [id number] [place] [address] 40650- 4513 Dec, [facility] [id number] [place] [address] 24098- 1083 Nov, [facility] [id number] [place] [address] 04463- 6562 Oct, [facility] [id number] [place] [address] 98630- 8602 Sep, Back pain M54.9 [facility] [id number] [place] [address] 67343- 0012 17 Aug, 2015 Back pain M54.9 and Hypertension I10 [facility] [id number] [place] [address] 30749 -4167 13 Aug, 2015 Low back pain M54.5 and Other chronic pain G89.29 [facility] [id number] [place] [address] 85764- 7061 10 Aug, 2015 Back pain M54.9 [facility] [id number] [place] [address] 26980- 3634 July, Back pain M54.9 [facility] [id number] [place] [address] 53399- 3792 06 Jun, 2015 Back pain M54.9 [facility] [address] 38060- 5144 09 May, 2015 Back pain M54.9 [place] [address] 04526- 8211 04 Apr, 2015 Back pain M54.9 [place] [address] 18201- 2485 Mar, Back pain M54.9 [place] [address] 50960- 8258 Feb, Prostatitis N41.9 ; Arthritis M19.90 and Hypertension I10 [place] [address] 86861- 7781 Feb, [place] [address] 82095- 2871 Jan, [place] [address] 44376- 1242 Dec, Encounter for immunization Z23 [place] [address] 58010- 3048 Dec, [place] [address] 53312- 8987 Dec, Eye pain H57.10 [place] [address] 26013- 2487 Dec, Contusion of left leg S80.12XA and Right shoulder injury S49.91XA [place] [address] 17401- 4119 Dec, Cellulitis L03.90 ; Back pain M54.9 ; Urinary incontinence R32 and Need for dtsftyjweq-xwbnchr-nhxrhbmqw (Tdap) vaccine Z23 [place] [id number] [place] [address] 37643- 2907 30 Nov, 2014 Need for prophylactic vaccination with tetanus-diphtheria ( TD) V06.5 [place] [address] [place] [address]- 8099 Nov, [facility] [place] [facility] [address] [id number] [place] [address]- 7177 Oct, [facility] [place] [facility] [address] [id number] [place] [address]- 6925 Sep, [facility] [place] [facility] [address] [id number] [place] [address]- 4146 Sep, [facility] [place] [facility] [address] [id number] [place] [address]- 8832 Aug, [facility] [place] [facility] [address] [id number] [place] [address]- 7015 July, [facility] [place] [facility] [address] [id number] [place] [address]- 1362 July, [facility] [place] [facility] [address] [id number] [place] [address]- 9510 Jun, [facility] [place] [facility] [address] [id number] [place] [address]- 0170 Jun, [facility] [place] [facility] [address] [id number] [place] [address]- 4342 May, [facility] [place] [facility] [address] [id number] [place] [address]- 5578 May, [facility] [place] [facility] [address] [id number] [place] [address]- 7562 Apr, [facility] [place] [facility] [address] [id number] [place] [address]- 3801 Apr, [facility] [place] [facility] [address] [id number] [place] [address]- 6018 Mar, [facility] [place] [facility] [address] [id number] [place] [address]- 2247 Mar, [facility] [place] [facility] [address] [id number] [address]- 9434 Mar, [facility] [place] [facility] [address] [id number] [place] [address]- 0850 Mar, [facility] [place] [facility] [address] [id number] [place] [address]- 8951 Mar, [facility] [place] [facility] [address] [id number] [place] [address]- 0649 Mar, [facility] [place] [facility] [address] [id number] [place] [address]- 8261 Mar, [facility] [place] [facility] [address] [id number] [place] [address]- 2297 Mar, [facility] [place] [facility] [address] [id number] [place] [address]- 1270 Mar, [facility] [place] [facility] [address] [id number] [place] [address]- 1647 Mar, [facility] [place] [facility] [address] [id number] [place] [address]- 6497 Mar, [facility] [place] [facility] [address] [id number] [place] [address]- 7769 Mar, [facility] [place] [facility] [address] [id number] [place] [address]- 9356 Mar, [facility] [place] [facility] [address] [id number] [place] [address]- 2778 Mar, [facility] [place] [facility] [address] [id number] [place] [address]- 1630 Feb, [facility] [place] [facility] [address] [id number] [place] [address]- 2530 Feb, [facility] [place] [facility] [address] [id number] [place] [address]- 5927 Feb, [facility] [place] [facility] [address] [id number] [place] [address]- 3769 Feb, [facility] [place] [facility] [address] [id number] [place] [address]- 2196 Feb, [facility] [place] [facility] [address] [id number] [place] [address]- 0770 Feb, [facility] [place] [facility] [address] [id number] [place] [address]- 8923 Jan, [facility] [place] [facility] [address] [id number] [place] [address]- 6525 Jan, [facility] [place] [facility] [address] [id number] [place] [address]- 1757 Dec, [facility] [place] [facility] [address] [id number] [place] [address]- 9721 Dec, [facility] [place] [facility] [address] [id number] [place] [address]- 6034 Dec, [facility] [place] [facility] [address] [id number] [place] [address]- 0169 Dec, [facility] [place] [facility] [address] [id number] [place] [address]- 3051 Dec, [facility] [place] [facility] [address] [id number] [place] [address]- 2668 Dec, [facility] [place] [facility] [address] [id number] [place] [address]- 1115 Nov, [facility] [place] [facility] [address] [id number] [place] [address]- 4078 Nov, [facility] [place] [facility] [address] [id number] [address]- 8066 Oct, [facility] [place] [facility] [address] [id number] [place] [address]- 9184 Oct, [facility] [place] [facility] [address] [id number] [place] [address]- 5525 Sep, [facility] [place] [facility] [address] [id number] [place] [address]- 2171 Sep, [facility] [place] [facility] [address] [id number] [place] [address]- 8691 Sep, [facility] [address] [id number] [place] [address]- 7335 Sep, [facility] [address] [id number] [place] [address]- 6493 July, [facility] [address] [id number] [place] [address]- 0505 July, [facility] [address] [id number] [place] [address]- 8830 July, [facility] [address] [id number] [place] [address]- 2857 July, [facility] [address] [id number] [place] [address]- 3238 Feb, [facility] [address] [id number] [place] [address]- 5862 Feb, [facility] [address] [id number] [place] [address]- 0535 Jan, [facility] [address] [id number] [place] [address]- 0028 Jan, [facility] [address] [id number] [place] [address]- 4612 Jan, [facility] [address] [id number] [place] [address]- 3409 Jan, [facility] [address] [id number] [place] [address]- 5093 Nov, [facility] [place] [facility] [address] [id number] [place] [address]- 5287 Aug, [facility] [place] [facility] [address] [id number] [place] [address]- 4326 July, [facility] [address] [id number] [place] [address]- 7236 Jun, [facility] [place] [facility] [address] [id number] [place] [address]- 7733 Apr, [facility] [place] [facility] [address] [id number] [place] [address]- 2596 Mar, [facility] [place] [facility] [address] [id number] [place] [address]- 3576 Mar, [facility] [place] [facility] [address] [id number] [place] [address]- 7124 Jan, [facility] [place] [facility] [address] [id number] [place] [address]- 1791 Jan, [facility] [place] [facility] [address] [id number] [place] [address]- 9986 Jan, [facility] [place] [facility] [address] [id number] [place] [address]- 4925 Jan, [facility] [place] [facility] [address] [id number] [address]- 8421 Dec, [facility] [place] [facility] [address] [id number] [place] [address]- 5858 Dec, [facility] [place] [facility] [address] [facility] [id number] [place] [address]- 4752 Dec, [facility] [place] [facility] [address] [id number] [place] [address]- 8456 Dec, [facility] [place] [facility] [address] [id number] [place] [address]- 8456 Nov, [facility] [place] [facility] [address] [id number] [place] [address]- 0326 Oct, [facility] [place] [facility] [address] [id number] [place] [address]- 7506 July, [facility] [place] [facility] [address] [id number] [place] [address]- 2606 Mar, [facility] [place] [facility] [address] [id number] [place] [address]- 2956 17 Jan, 2011 [facility] [address] [facility] [id number] [place] [address]- 7896 17 Jan, 2011 [facility] [address] [facility] [id number] [place] [address]- 3786 Dec, [facility] [address] [facility] [id number] [place] [address]- 5066 17 Dec, 2010 [facility] [address] [facility] [id number] [place] [address]- 9516 17 Dec, 2010 [facility] [address] [facility] [id number] [place] [address]- 6886 14 Nov, 2010 [facility] [address] [facility] [id number] [place] [address] 2546 July, [facility] [id number] [address]- 6446 14 Jun, 2010 [facility] [address] [facility] [id number] [place] [address]- 8144 14 May, 2010 [facility] [address] [id number] [place] [address]- 5179 14 Apr, 2010 [facility] [address] [id number] [place] [address]- 6486 10 Apr, 2010 [facility] [address] [id number] [address]- 1709 14 Mar, 2010 [facility] [address] [facility] [id number] [place] [address] 2546 Jan, [facility] [address] [facility] [id number] [place] [address]- 1697 Dec, [facility] [address] [facility] [id number] [place] [address]- 8326 17 Jun, 2009 [facility] [address] [id number] [address]- 6488 13 Jun, 2009 IMMUNIZATIONS No Known Immunizations SOCIAL HISTORY Never Assessed REASON FOR VISIT Hydrocodone 10/08 PLAN OF CARE VITAL SIGNS MEDICATIONS Medication Instructions Dosage Frequency Start Date End Date Duration Status Hydrocodone-Acetaminophen 5-325 MG Orally 3 times a day 1 tablet 8h Sep 28 days Active RESULTS No Results PROCEDURES No Known procedures INSTRUCTIONS MEDICATIONS ADMINISTERED No Known Medications MEDICAL (GENERAL) HISTORY Type Description Date Medical History prostatism Medical History chronic pain Medical History hypertension
--- OUTSIDE RECORDS SUMMARY | 2018-01-12 12:30 | XMS REPORT ---
Author Author RONAL CAMARGO Organization [facility] Address [address] [place] [address] Care Team Providers Care Shredder Tender Name Role Phone RONAL CAMARGO Unavailable PROBLEMS Type Condition ICD9-CM Code RNY28-NJ Code Onset Dates Condition Status SNOMED Code Problem Hypertension I10 Active 61331086 Problem Urge incontinence of urine N39.41 Active 97994918 Problem Arthritis M19.90 Active 4336133 Problem Back pain M54.9 Active 724449198 Problem Functional diarrhea K59.1 Active 44242119 Problem Right inguinal hernia K40.90 Active 250816603 Problem Pure hypercholesterolemia E78.00 Active 764945111 Problem [place] L84 Active 057153412 Problem Prostatism N40.0 Active 85343510 Problem Other chronic pain G89.29 Active 15332527 ALLERGIES No Information ENCOUNTERS Encounter Location Date Diagnosis [facility] [address] [address] Aug, Back pain M54.9 ; Prostatism N40.0 ; Functional diarrhea K59.1 and Right inguinal hernia K40.90 [facility] [id number] [place] [address] 52343- 8883 July, Other chronic pain G89.29 [facility] [id number] [place] [address] 78396- 8825 Jun, Other chronic pain G89.29 [facility] [address] 17[address]- 7610 May, Other chronic pain G89.29 [facility] [id number] [place] [address] 79705- 6990 15 Apr, 2017 Other chronic pain G89.29 [facility] [address] [place] [address] Mar, Other chronic pain G89.29 [facility] [id number] [place] [address] 90560- 1378 Feb, Other chronic pain G89.29 [facility] [address] [address] Feb, Acute upper respiratory infection, unspecified J06.9 and Other viral agents as the cause of diseases classified elsewhere B97.89 [facility] [id number] [place] [address] 05598- 2446 Jan, [facility] [id number] [place] [address] 62507- 9791 Jan, Back pain M54.9 and Prostatism N40.0 [facility] [id number] [place] [address] 22249- 5077 Jan, Other chronic pain G89.29 [facility] [id number] [place] [address] 78571- 9433 Dec, [facility] [id number] [place] [address] 19955- 7859 Dec, Other chronic pain G89.29 [facility] [id number] [place] [address] 55940- 6439 Nov, Other chronic pain G89.29 [facility] [id number] [place] [address] 79710- 8668 Nov, Encounter for immunization Z23 [facility] [id number] [place] [address] 00912- 0353 Nov, Other chronic pain G89.29 [facility] [id number] [place] [address] 04208- 2099 Oct, Other chronic pain G89.29 [facility] [id number] [place] [address] 99028- 0297 Oct, Back pain M54.9 [facility] [id number] [place] [address] 80062- 1102 Sep, Back pain M54.9 [facility] [address] 83473- 4358 Aug, [facility] [address] 75659- 9038 Aug, Back pain M54.9 [facility] [address] 61623- 6282 July, Back pain M54.9 [facility] [address] 51815- 7646 Jun, Weight loss R63.4 and Postural hypotension I95.1 [place] [address] 29413- 8967 Jun, Back pain M54.9 [facility] [address] 13467- 8023 May, Back pain M54.9 [facility] [address] 73171- 5873 Apr, Back pain M54.9 [facility] [address] 46542- 2410 Apr, Pure hypercholesterolemia E78.00 [facility] [address] 18842- 9478 Apr, Hypertension I10 ; Back pain M54.9 ; Urge incontinence of urine N39.41 and [place] L84 [place] [address] 14620- 8317 Mar, [facility] [address] 18481- 6653 Mar, Other chronic pain G89.29 [facility] [address] 57876- 1722 Feb, [facility] [id number] [place] [address] 14184- 1360 Jan, [facility] [id number] [place] [address] 04555- 3810 Dec, [facility] [id number] [place] [address] 02710- 4409 Nov, [facility] [id number] [place] [address] 84937- 6884 Oct, [facility] [id number] [place] [address] 26647- 4470 Sep, Back pain M54.9 [facility] [id number] [place] [address] 88383- 1802 17 Aug, 2015 Back pain M54.9 and Hypertension I10 [facility] [id number] [place] [address] 80458 -7202 13 Aug, 2015 Low back pain M54.5 and Other chronic pain G89.29 [facility] [id number] [place] [address] 70691- 2304 10 Aug, 2015 Back pain M54.9 [facility] [id number] [place] [address] 20664- 0098 July, Back pain M54.9 [facility] [id number] [place] [address] 21571- 2626 06 Jun, 2015 Back pain M54.9 [facility] [id number] [place] [address] 55791- 0014 May, Back pain M54.9 [facility] [id number] [place] [address] 91291- 8423 04 Apr, 2015 Back pain M54.9 [facility] [id number] [place] [address] 01229- 4911 Mar, Back pain M54.9 [facility] [id number] [place] [address] 99022- 5897 Feb, Prostatitis N41.9 ; Arthritis M19.90 and Hypertension I10 [place] [address] 63299- 3719 Feb, [place] [address] 20090- 7924 Jan, [place] [address] 28733- 2295 Dec, Encounter for immunization Z23 [place] [address] 02822- 7437 Dec, [place] [address] 40328- 1107 Dec, Eye pain H57.[address] 03637- 8372 Dec, Contusion of left leg S80.12XA and Right shoulder injury S49.91XA [place] [address] 38279- 0798 Dec, Cellulitis L03.90 ; Back pain M54.9 ; Urinary incontinence R32 and Need for ceqksinfxi-pldvbug-bopwkseif (Tdap) vaccine Z23 [place] [id number] [place] [address] 14946- 5626 Nov, Need for prophylactic vaccination with tetanus-diphtheria ( TD) V06.5 [place] [id number] [place] [address] 80512- 6096 Nov, [place] [address] 65613- 0143 Oct, [place] [id number] [place] [address] 79964- 7748 Sep, [place] [address] 74630- 9607 Sep, [facility] [place] [facility] [address] [id number] [place] [address]- 6875 Aug, [facility] [place] [facility] [address] [id number] [place] [address]- 9106 July, [facility] [place] [facility] [address] [id number] [place] [address]- 4101 July, [facility] [place] [facility] [address] [id number] [place] [address]- 7676 Jun, [facility] [place] [facility] [address] [id number] [place] [address]- 3740 Jun, [facility] [place] [facility] [address] [id number] [place] [address]- 0065 May, [facility] [place] [facility] [address] [id number] [place] [address]- 0851 May, [facility] [place] [facility] [address] [id number] [place] [address]- 8891 Apr, [facility] [place] [facility] [address] [id number] [place] [address]- 3177 Apr, [facility] [place] [facility] [address] [id number] [place] [address]- 7477 Mar, [facility] [place] [facility] [address] [id number] [place] [address]- 8992 Mar, [facility] [place] [facility] [address] [id number] [place] [address]- 7064 Mar, [facility] [place] [facility] [address] [id number] [place] [address]- 8349 Mar, [facility] [place] [facility] [address] [id number] [place] [address]- 4505 Mar, [facility] [place] [facility] [address] [id number] [place] [address]- 4934 Mar, [facility] [place] [facility] [address] [id number] [place] [address]- 3482 Mar, [facility] [address] [id number] [place] [address]- 5620 Mar, [facility] [place] [facility] [address] [id number] [place] [address]- 0083 Mar, [facility] [place] [facility] [address] [id number] [place] [address]- 6669 Mar, [facility] [place] [facility] [address] [id number] [place] [address]- 6634 Mar, [facility] [place] [facility] [address] [id number] [place] [address]- 6055 Mar, [facility] [place] [facility] [address] [id number] [place] [address]- 9532 Mar, [facility] [place] [facility] [address] [id number] [place] [address]- 7797 Mar, [facility] [place] [facility] [address] [id number] [place] [address]- 9985 Feb, [facility] [place] [facility] [address] [id number] [place] [address]- 0936 Feb, [facility] [place] [facility] [address] [id number] [place] [address]- 3408 Feb, [facility] [place] [facility] [address] [id number] [place] [address]- 1417 Feb, [facility] [place] [facility] [address] [id number] [place] [address]- 2863 Feb, [facility] [place] [facility] [address] [id number] [place] [address]- 5640 Feb, [facility] [place] [facility] [address] [id number] [place] [address]- 7680 Jan, [facility] [place] [facility] [address] [id number] [place] [address]- 1485 Jan, [facility] [place] [facility] [address] [id number] [place] [address]- 2319 Dec, [facility] [place] [facility] [address] [id number] [place] [address]- 8096 Dec, [facility] [place] [facility] [address] [id number] [place] [address]- 2784 Dec, [facility] [place] [facility] [address] [id number] [place] [address]- 4927 Dec, [facility] [place] [facility] [address] [id number] [place] [address]- 1764 Dec, [facility] [place] [facility] [address] [id number] [place] [address]- 6967 Dec, [facility] [place] [facility] [address] [id number] [place] [address]- 2937 Nov, [facility] [place] [facility] [address] [id number] [place] [address]- 2383 Nov, [facility] [place] [facility] [address] [id number] [place] [address]- 1743 Oct, [facility] [place] [facility] [address] [id number] [place] [address]- 1378 Oct, [facility] [place] [facility] [address] [id number] [place] [address]- 1071 Sep, [facility] [place] [facility] [address] [id number] [place] [address]- 5125 Sep, [facility] [place] [facility] [address] [id number] [place] [address]- 4102 Sep, [facility] [place] [facility] [address] [id number] [place] [address]- 7443 Sep, [facility] [place] [facility] [address] [id number] [place] [address]- 7732 July, [facility] [place] [facility] [address] [id number] [place] [address]- 0796 July, [facility] [address] [id number] [place] [address]- 2382 July, [facility] [place] [facility] [address] [id number] [place] [address]- 0476 July, [facility] [address] [id number] [place] [address]- 5413 Feb, [facility] [place] [facility] [address] [id number] [place] [address]- 7036 Feb, [facility] [place] [facility] [address] [id number] [place] [address]- 9634 Jan, [facility] [place] [facility] [address] [id number] [place] [address]- 1495 Jan, [facility] [place] [facility] [address] [id number] [place] [address]- 5175 Jan, [facility] [place] [facility] [address] [id number] [place] [address]- 2665 Jan, [facility] [place] [facility] [address] [id number] [place] [address]- 2524 Nov, [facility] [place] [facility] [address] [id number] [place] [address]- 9336 Aug, [facility] [place] [facility] [address] [id number] [place] [address]- 1028 July, [facility] [place] [facility] [address] [id number] [place] [address]- 8082 Jun, [facility] [place] [facility] [address] [id number] [place] [address]- 1666 Apr, [facility] [place] [facility] [address] [id number] [place] [address]- 9749 Mar, [facility] [place] [facility] [address] [id number] [place] [address]- 4066 Mar, [facility] [place] [facility] [address] [id number] [place] [address]- 1622 13 Jan, 2012 [facility] [place] [facility] [address] [id number] [place] [address]- 5535 Jan, [facility] [place] [facility] [address] [id number] [place] [address] 2546 Jan, [facility] [place] [facility] [address] [id number] [place] [address]- 8761 Jan, [facility] [place] [facility] [address] [id number] [place] [address]- 5989 Dec, [facility] [place] [facility] [address] [id number] [place] [address], [place] [address]- 7445 Dec, [facility] [place] [facility] [address] [id number] [place] [address]- 0207 Dec, [facility] [place] [facility] [address] [id number] [place] [address]- 0734 Dec, [facility] [place] [facility] [address] [id number] [place] [address]- 4380 Nov, [facility] [place] [facility] [address] [id number] [place] [address]- 0592 Oct, [facility] [place] [facility] [address] [id number] [place] [address]- 7461 July, [facility] [place] [facility] [address] [id number] [place] [address]- 5568 Mar, [facility] [place] [facility] [address] [id number] [place] [address]- 2243 Jan, [facility] [place] [facility] [address] [id number] [place] [address]- 2304 Jan, [facility] [place] [facility] [address] [id number] [place] [address]- 2541 Dec, [facility] [place] [facility] [address] [id number] [place] [address]- 1051 Dec, [facility] [address] [facility] [id number] [address]- 5676 17 Dec, 2010 [facility] [address] [facility] [id number], [place] [address]- 2536 14 Nov, 2010 [facility] [address] [facility] [id number], [place] [address]- 6956 July, [facility] [address] [facility] [id number], [place] [address]- 8416 Jun, [facility] [address] [facility] [id number], [place] [address]- 3475 May, [facility] [address] [facility] [id number], [place] [address]- 9386 14 Apr, 2010 [facility] [address] [address]- 5956 Apr, [facility] [id number] [address]- 5556 Mar, [facility] [address] [id number] [address]- 6576 Jan, [facility] [address] [id number] [address]- 7906 Dec, [facility] [address] [id number] [address]- 5416 Jun, [facility] [address] [id number] [address]- 7186 Jun, IMMUNIZATIONS No Known Immunizations SOCIAL HISTORY Never Assessed REASON FOR VISIT Hydrocodone 06/08 PLAN OF CARE VITAL SIGNS MEDICATIONS Medication Instructions Dosage Frequency Start Date End Date Duration Status Hydrocodone-Acetaminophen 5-325 MG Orally 3 times a day 1 tablet 8h May 28 days Active RESULTS No Results PROCEDURES No Known procedures INSTRUCTIONS MEDICATIONS ADMINISTERED No Known Medications MEDICAL (GENERAL) HISTORY Type Description Date Medical History prostatism Medical History chronic pain Medical History hypertension
--- OUTSIDE RECORDS SUMMARY | 2018-01-12 12:30 | XMS REPORT ---
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 Name Role Phone RONAL CAMARGO Unavailable PROBLEMS Type Condition ICD9-CM Code VOY26-HY Code Onset Dates Condition Status SNOMED Code Problem Hypertension I10 Active 11795301 Problem Urge incontinence of urine N39.41 Active 36497295 Problem Arthritis M19.90 Active 8675454 Problem Back pain M54.9 Active 625473384 Problem Functional diarrhea K59.1 Active 16292497 Problem Right inguinal hernia K40.90 Active 400114160 Problem Pure hypercholesterolemia E78.00 Active 611086817 Problem [place] L84 Active 229900892 Problem Prostatism N40.0 Active 57993489 Problem Other chronic pain G89.29 Active 31508967 ALLERGIES No Information ENCOUNTERS Encounter Location Date Diagnosis [facility] [id number] [place] [address] 93456- 2069 Sep, Back pain M54.9 [facility] [id number] [place] [address] 62042- 6016 Aug, Back pain M54.9 ; Prostatism N40.0 ; Functional diarrhea K59.1 and Right inguinal hernia K40.90 [facility] [id number] [place] [address] 90748- 9654 July, Other chronic pain G89.29 [facility] [id number] [place] [address] 62156- 6405 Jun, Other chronic pain G89.29 [facility] [id number] [place] [address] 06822- 6558 May, Other chronic pain G89.29 [facility] [id number] [place] [address] 54748- 3263 Apr, Other chronic pain G89.29 [facility] [id number] [place] [address] 43849- 9638 Mar, Other chronic pain G89.29 [facility] [id number] [place] [address] 79424- 4659 Feb, Other chronic pain G89.29 [facility] [id number] [place] [address] 25800 -8167 Feb, Acute upper respiratory infection, unspecified J06.9 and Other viral agents as the cause of diseases classified elsewhere B97.89 [facility] [id number] [place] [address] 09458- 6899 Jan, [facility] [id number] [place] [address] 42217- 4244 Jan, Back pain M54.9 and Prostatism N40.0 [facility] [id number] [place] [address] 00666- 2068 Jan, Other chronic pain G89.29 [facility] [id number] [place] [address] 01110- 7333 Dec, [facility] [id number] [place] [address] 64597- 4701 Dec, Other chronic pain G89.29 [facility] [id number] [place] [address] 34963- 8753 Nov, Other chronic pain G89.29 [facility] [id number] [place] [address] 45402- 3506 Nov, Encounter for immunization Z23 [facility] [id number] [place] [address] 57886- 1038 Nov, Other chronic pain G89.29 [facility] [id number] [place] [address] 48965- 5718 Oct, Other chronic pain G89.29 [facility] [id number] [place] [address] 96040- 3115 07 Oct, 2016 Back pain M54.9 [facility] [address] 81512- 7003 Sep, Back pain M54.9 [facility] [id number] [place] [address] 02298- 7102 Aug, [facility] [address] 14526- 1187 09 Aug, 2016 Back pain M54.9 [facility] [address] 42999- 6707 July, Back pain M54.9 [facility] [address] 88082- 0130 24 Jun, 2016 Weight loss R63.4 and Postural hypotension I95.1 [facility] [address] 28048- 8454 Jun, Back pain M54.9 [facility] [address] 79071- 1449 May, Back pain M54.9 [facility] [id number] [place] [address] 65285- 2318 Apr, Back pain M54.9 [facility] [address] 76336- 7698 Apr, Pure hypercholesterolemia E78.00 [facility] [id number] [place] [address] 59085- 3868 06 Apr, 2016 Hypertension I10 ; Back pain M54.9 ; Urge incontinence of urine N39.41 and [place] L84 [facility] [id number] [place] [address] 18774- 7229 Mar, [facility] [address] 98808- 4239 Mar, Other chronic pain G89.29 [facility] [address] [facility] [id number] [address] 8123 Feb, [facility] [address] [facility] [place] [id number] [place] [address] 72799- 1934 Jan, [facility] [id number] [place] [address] 97023- 6518 Dec, [facility] [address] [facility] [place] [id number] [place] [address] 96062- 0564 Nov, [facility] [address] [facility] [place] [id number] [place] [address] 13803- 8660 Oct, [facility] [id number] [place] [address] 46174- 9368 Sep, Back pain M54.9 [facility] [id number] [place] [address] 12989- 8379 17 Aug, 2015 Back pain M54.9 and Hypertension I10 [facility] [id number] [place] [address] 62064 -1834 13 Aug, 2015 Low back pain M54.5 and Other chronic pain G89.29 [facility] [id number] [place] [address] 93224- 5177 10 Aug, 2015 Back pain M54.9 [facility] [id number] [place] [address] 20725- 3055 July, Back pain M54.9 [facility] [id number] [place] [address] 35450- 5972 Jun, Back pain M54.9 [facility] [id number] [place] [address] 59060- 2736 May, Back pain M54.9 [facility] [id number] [place] [address] 52755- 4711 Apr, Back pain M54.9 [facility] [address] 26225- 6416 Mar, Back pain M54.9 [place] [address] 13013- 5576 Feb, Prostatitis N41.9 ; Arthritis M19.90 and Hypertension I10 [place] [address] 06882- 6927 Feb, [place] [address] 85473- 7531 Jan, [place] [address] 89646- 0365 Dec, Encounter for immunization Z23 [address] 23808- 8503 Dec, [address] 98453- 3634 Dec, Eye pain H57.[address] 30525- 7726 Dec, Contusion of left leg S80.12XA and Right shoulder injury S49.91XA [address] 94107- 3473 Dec, Cellulitis L03.90 ; Back pain M54.9 ; Urinary incontinence R32 and Need for oqsomtstot-qqybdgt-tntxsjdby (Tdap) vaccine Z23 [place] [id number] [place] [address] 30331- 5458 Nov, Need for prophylactic vaccination with tetanus-diphtheria ( TD) V06.5 [place] [address] 62114- 8617 Nov, [place] [address] 68793- 7191 Oct, [place] [address] 06873- 3636 Sep, [facility] [place] [facility] [address] [id number] [place] [address]- 1061 Sep, [facility] [place] [facility] [address] [id number] [place] [address]- 8438 Aug, [facility] [place] [facility] [address] [id number] [place] [address]- 3853 July, [facility] [place] [facility] [address] [id number] [place] [address]- 8830 July, [facility] [place] [facility] [address] [id number] [place] [address]- 1408 Jun, [facility] [place] [facility] [address] [id number] [place] [address]- 6536 Jun, [facility] [place] [facility] [address] [id number] [place] [address]- 6356 May, [facility] [place] [facility] [address] [id number] [place] [address]- 3796 May, [facility] [place] [facility] [address] [id number] [place] [address]- 2124 Apr, [facility] [place] [facility] [address] [id number] [place] [address]- 2244 Apr, [facility] [place] [facility] [address] [id number] [place] [address]- 3532 Mar, [facility] [place] [facility] [address] [id number] [place] [address]- 8760 Mar, [facility] [place] [facility] [address] [id number] [place] [address]- 7012 Mar, [facility] [place] [facility] [address] [id number] [place] [address]- 2791 Mar, [facility] [place] [facility] [address] [id number] [place] [address]- 4016 Mar, [facility] [place] [facility] [address] [id number] [place] [address]- 0753 Mar, [facility] [address] [id number] [place] [address]- 7829 Mar, [facility] [address] [id number] [place] [address]- 1956 Mar, [facility] [address] [id number] [place] [address]- 7386 Mar, [facility] [address] [id number] [place] [address]- 4987 Mar, [facility] [address] [id number] [place] [address]- 5503 Mar, [facility] [address] [id number] [place] [address]- 9761 Mar, [facility] [address] [id number] [place] [address]- 3997 Mar, [facility] [address] [id number] [place] [address]- 1886 Mar, [facility] [address] [id number] [place] [address]- 9519 Feb, [facility] [address] [id number] [place] [address]- 0102 Feb, [facility] [address] [id number] [place] [address]- 7231 Feb, [facility] [address] [id number] [place] [address]- 2039 Feb, [facility] [place] [facility] [address] [id number] [place] [address]- 9141 Feb, [facility] [place] [facility] [address] [id number] [place] [address]- 8166 Feb, [facility] [place] [facility] [address] [id number] [place] [address]- 2493 Jan, [facility] [place] [facility] [address] [id number] [place] [address]- 5339 Jan, [facility] [place] [facility] [address] [id number] [place] [address]- 1341 Dec, [facility] [place] [facility] [address] [id number] [place] [address]- 6861 Dec, [facility] [place] [facility] [address] [id number] [place] [address]- 9552 Dec, [facility] [place] [facility] [address] [id number] [place] [address]- 6526 Dec, [facility] [place] [facility] [address] [id number] [place] [address]- 4964 Dec, [facility] [place] [facility] [address] [id number] [place] [address]- 1342 Dec, [facility] [place] [facility] [address] [id number] [place] [address]- 3263 Nov, [facility] [place] [facility] [address] [id number] [place] [address]- 7160 Nov, [facility] [place] [facility] [address] [id number] [place] [address]- 5147 Oct, [facility] [place] [facility] [address] [id number] [place] [address]- 5253 Oct, [facility] [place] [facility] [address] [id number] [place] [address]- 3769 Sep, [facility] [place] [facility] [address] [id number] [place] [address]- 0584 Sep, [facility] [place] [facility] [address] [id number] [place] [address]- 1626 Sep, [facility] [place] [facility] [address] [id number] [place] 8480 Sep, [facility] [place] [facility] [address] [id number] [place] [address]- 1445 July, [facility] [address] [id number] [place] [address]- 4264 July, [facility] [address] [id number] [place] [address]- 7657 July, [facility] [address] [id number] [place] [address]- 7186 July, [facility] [address] [id number] [place] [address]- 3753 Feb, [facility] [address] [id number] [place] [address]- 8848 Feb, [facility] [place] [facility] [address] [id number] [place] [address]- 9803 Jan, [facility] [address] [id number] [place] [address]- 8261 Jan, [facility] [place] [facility] [address] [id number] [place] [address]- 2690 Jan, [facility] [address] [id number] [place] [address]- 7471 Jan, [facility] [place] [facility] [address] [id number] [place] [address]- 1311 Nov, [facility] [address] [id number] [place] [address]- 0511 Aug, [facility] [place] [facility] [address] [id number] [place] [address]- 3646 July, [facility] [place] [facility] [address] [id number] [place] [address]- 2528 Jun, [facility] [place] [facility] [address] [id number] [place] [address]- 7416 Apr, [facility] [place] [facility] [address] [id number] [address]- 7386 Mar, [facility] [place] [facility] [address] [id number] [place] [address]- 2993 Mar, [facility] [place] [facility] [address] [id number] [place] [address]- 5084 Jan, [facility] [place] [facility] [address] [id number] [place] [address]- 2744 Jan, [facility] [place] [facility] [address] [id number] [place] [address]- 9712 Jan, [facility] [place] [facility] [address] [id number] [place] [address]- 1373 Jan, [facility] [place] [facility] [address] [id number] [place] [address]- 0567 Dec, [facility] [place] [facility] [address] [id number] [place] [address]- 5931 Dec, [facility] [place] [facility] [address] [id number] [place] [address]- 3126 Dec, [facility] [place] [facility] [address] [id number] [place] [address]- 6093 Dec, [facility] [place] [facility] [address] [id number] [place] [address]- 0768 Nov, [facility] [place] [facility] [address] [id number] [place] [address]- 2997 Oct, [facility] [place] [facility] [address] [id number] [place] [address]- 2894 July, [facility] [place] [facility] [address] [id number] [place] [address]- 1008 Mar, [facility] [place] [facility] [address] [id number] [place] [address]- 2702 Jan, [facility] [place] [facility] [address] [id number] [place] [address]- 5481 Jan, [facility] [place] [facility] [address] [id number] [place] [address]- 6880 Dec, [facility] [address] [id number] [address]- 5668 Dec, [facility] [address] [address]- 7156 Dec, [facility] [address] [id number] [address]- 8406 14 Nov, 2010 [facility] [address] [address]- 1206 July, [facility] [address] [address]- 0740 Jun, [facility] [address] [address]- 0036 May, [facility] [address] [address]- 1926 14 Apr, 2010 [facility] [address] [address]- 9910 Apr, [facility] [address] [address]- 3810 Mar, [facility] [address] [address]- 4986 Jan, [facility] [address] [address]- 0719 Dec, [facility] [address] [address]- 3340 Jun, [facility] [address] [id number] [address]- 4795 Jun, IMMUNIZATIONS No Known Immunizations SOCIAL HISTORY Never Assessed REASON FOR VISIT Hydrocodone 07/09/17 PLAN OF CARE VITAL SIGNS MEDICATIONS Medication Instructions Dosage Frequency Start Date End Date Duration Status Hydrocodone-Acetaminophen 5-325 MG Orally 3 times a day 1 tablet 8h Jun 28 days Active Proscar 5 mg Orally Once a day 1 tablet 24h Jan, 30 day(s) Active RESULTS No Results PROCEDURES No Known procedures INSTRUCTIONS MEDICATIONS ADMINISTERED No Known Medications MEDICAL (GENERAL) HISTORY Type Description Date Medical History prostatism Medical History chronic pain Medical History hypertension
--- OUTSIDE RECORDS SUMMARY | 2018-01-12 12:30 | XMS REPORT ---
Author Author RONAL CAMARGO Organization [facility] Address [address] [place] [address] Care Team Providers Care Agile Coach Name Role Phone RONAL CAMARGO Unavailable PROBLEMS Type Condition ICD9-CM Code VTK69-LF Code Onset Dates Condition Status SNOMED Code Problem Arthritis M19.90 Active 1510178 Problem Back pain M54.9 Active 826979572 Problem Prostatism N40.0 Active 10228646 Problem Other chronic pain G89.29 Active 19987332 Problem Urge incontinence of urine N39.41 Active 04377217 Problem Hypertension I10 Active 18603412 Problem Pure hypercholesterolemia E78.00 Active 197558819 Problem Roscoe L84 Active 993282729 ALLERGIES No Information ENCOUNTERS Encounter Location Date Diagnosis [facility] [id number] [place] [address] 77123- 1172 July, [facility] [address] 43620- 3334 Jun, Other chronic pain G89.29 [facility] [id number] [place] [address] 99064- 7788 May, Other chronic pain G89.29 [facility] [id number] [place] [address] 61379- 5960 Apr, Other chronic pain G89.29 [facility] [id number] [place] [address] 93143- 7312 Mar, Other chronic pain G89.29 [facility] [address] 74891- 7434 Feb, Other chronic pain G89.29 [facility] [address] 61241 -6492 Feb, Acute upper respiratory infection, unspecified J06.9 and Other viral agents as the cause of diseases classified elsewhere B97.89 [facility] [id number] [place] [address] 13899- 9475 Jan, [facility] [id number] [place] [address] 63219- 0207 Jan, Back pain M54.9 and Prostatism N40.0 [facility] [id number] [place] [address] 32165- 5942 Jan, Other chronic pain G89.29 [facility] [id number] [place] [address] 95779- 4328 Dec, [facility] [id number] [place] [address] 82161- 4924 Dec, Other chronic pain G89.29 [facility] [address] 83242- 9342 Nov, Other chronic pain G89.29 [facility] [id number] [place] [address] 08746- 0703 Nov, Encounter for immunization Z23 [facility] [id number] [place] [address] 17649- 2325 Nov, Other chronic pain G89.29 [facility] [id number] [place] [address] 25480- 7647 Oct, Other chronic pain G89.29 [facility] [id number] [place] [address] 39596- 1346 Oct, Back pain M54.9 [facility] [id number] [place] [address] 80170- 2329 Sep, Back pain M54.9 [facility] [id number] [place] [address] 86710- 4897 Aug, [facility] [address] 11105- 8542 Aug, Back pain M54.9 [facility] [address] 81502- 4936 July, Back pain M54.9 [facility] [address] 29627- 2260 24 Jun, 2016 Weight loss R63.4 and Postural hypotension I95.1 [facility] [address] 52170- 2498 14 Jun, 2016 Back pain M54.9 [facility] [address] 97884- 2964 May, Back pain M54.9 [facility] [address] 36252- 3306 17 Apr, 2016 Back pain M54.9 [facility] [address] 98288- 0666 17 Apr, 2016 Pure hypercholesterolemia E78.00 [facility] [address] 82270- 2745 06 Apr, 2016 Hypertension I10 ; Back pain M54.9 ; Urge incontinence of urine N39.41 and Roscoe L84 [facility] [address] 21628- 0013 Mar, [facility] [address] 51532- 0119 Mar, Other chronic pain G89.29 [facility] [address] 12071- 7198 Feb, [facility] [address] 99045- 4335 Jan, [facility] [address] 50699- 3110 28 Dec, 2015 [facility] [address] 75309- 9284 28 Nov, 2015 [facility] [id number] [place] [address] 91452- 7213 05 Oct, 2015 [facility] [id number] [place] [address] 18720- 7403 Sep, Back pain M54.9 [facility] [id number] [place] [address] 50782- 6318 17 Aug, 2015 Back pain M54.9 and Hypertension I10 [facility] [address] [facility] [id number] [place] [address] 27991 -3386 13 Aug, 2015 Low back pain M54.5 and Other chronic pain G89.29 [facility] [id number] [place] [address] 80439- 3766 10 Aug, 2015 Back pain M54.9 [facility] [id number] [place] [address] 55099- 2922 July, Back pain M54.9 [facility] [id number] [place] [address] 54438- 6570 Jun, Back pain M54.9 [facility] [id number] [place] [address] 03081- 8197 May, Back pain M54.9 [facility] [id number] [place] [address] 39511- 5711 Apr, Back pain M54.9 [facility] [id number] [place] [address] 80004- 1737 Mar, Back pain M54.9 [facility] [id number] [place] [address] 97504- 4076 Feb, Prostatitis N41.9 ; Arthritis M19.90 and Hypertension I10 [facility] [id number] [place] [address] 68461- 3027 15 Feb, 2015 [facility] [address] 69849- 4676 Jan, [facility] [id number] [place] [address] 34667- 4798 Dec, Encounter for immunization Z23 [facility] [id number] [place] [address] 626522- 0152 Dec, [place] [id number] [place] [address] 29877- 3383 Dec, Eye pain H57.10 [place] [address] 98306- 7070 Dec, Contusion of left leg S80.12XA and Right shoulder injury S49.91XA [place] [facility] [id number] [place] [address] 90775- 1889 Dec, Cellulitis L03.90 ; Back pain M54.9 ; Urinary incontinence R32 and Need for elxyxorglw-exeyfwy-dmqdzmuvm (Tdap) vaccine Z23 [place] [facility] [id number] [place] [address] 48152- 0634 Nov, Need for prophylactic vaccination with tetanus-diphtheria ( TD) V06.5 [place] [facility] [id number] [place] [address] 81722- 0397 Nov, [place] [id number] [place] [address] 07530- 9497 Oct, [place] [id number] [place] [address] 31155- 7604 Sep, [facility] [id number] [place] [address] 41302- 4994 Sep, [facility] [id number] [place] [address] 670898- 7132 Aug, [facility] [id number] [place] [address] 98987- 0450 July, [facility] [id number] [place] [address] 90633- 9976 July, [facility] [place] [facility] [address] [id number] [place] [address]- 9645 Jun, [facility] [place] [facility] [address] [id number] [place] [address]- 6138 Jun, [facility] [place] [facility] [address] [id number] [place] [address]- 5341 May, [facility] [place] [facility] [address] [id number] [place] [address]- 9058 May, [facility] [place] [facility] [address] [id number] [place] [address]- 7701 Apr, [facility] [place] [facility] [address] [id number] [place] [address]- 8457 Apr, [facility] [place] [facility] [address] [id number] [place] [address]- 2579 Mar, [facility] [place] [facility] [address] [id number] [place] [address]- 0050 Mar, [facility] [place] [facility] [address] [id number] [place] [address]- 3256 Mar, [facility] [place] [facility] [address] [id number] [place] [address]- 8342 Mar, [facility] [place] [facility] [address] [id number] [place] [address]- 0910 Mar, [facility] [place] [facility] [address] [id number] [place] [address]- 0277 Mar, [facility] [place] [facility] [address] [id number] [place] [address]- 6329 Mar, [facility] [place] [facility] [address] [id number] [place] [address]- 9779 Mar, [facility] [place] [facility] [address] [id number] [place] [address]- 8686 Mar, [facility] [place] [facility] [address] [id number] [place] [address]- 0465 Mar, [facility] [address] [id number] [place] [address]- 4983 Mar, [facility] [place] [facility] [address] [id number] [place] [address]- 8333 Mar, [facility] [address] [id number] [place] [address]- 0023 Mar, [facility] [place] [facility] [address] [id number] [place] [address]- 8897 Mar, [facility] [address] [id number] [place] [address]- 5929 Feb, [facility] [place] [facility] [address] [id number] [place] [address]- 2744 Feb, [facility] [address] [id number] [place] [address]- 4319 Feb, [facility] [place] [facility] [address] [id number] [place] [address]- 1973 Feb, [facility] [place] [facility] [address] [id number] [place] [address]- 9751 Feb, [facility] [place] [facility] [address] [id number] [place] [address]- 7026 Feb, [facility] [place] [facility] [address] [id number] [place] [address]- 7545 Jan, [facility] [place] [facility] [address] [id number] [place] [address]- 6531 Jan, [facility] [place] [facility] [address] [id number] [place] [address]- 3844 Dec, [facility] [place] [facility] [address] [id number] [place] 7601 Dec, [facility] [place] [facility] [address] [id number] [place] [address]- 1484 Dec, [facility] [place] [facility] [address] [id number] [place] [address]- 8009 Dec, [facility] [place] [facility] [address] [id number] [place] [address]- 6401 Dec, [facility] [place] [facility] [address] [id number] [place] [address]- 4236 Dec, [facility] [place] [facility] [address] [id number] [place] [address]- 9706 Nov, [facility] [place] [facility] [address] [id number] [place] [address]- 7660 Nov, [facility] [place] [facility] [address] [id number] [place] [address]- 7186 Oct, [facility] [place] [facility] [address] [id number] [place] [address]- 8388 Oct, [facility] [place] [facility] [address] [id number] [place] [address]- 9083 Sep, [facility] [place] [facility] [address] [id number] [place] [address]- 8434 Sep, [facility] [place] [facility] [address] [id number] [place] [address]- 3241 Sep, [facility] [place] [facility] [address] [id number] [place] [address]- 2065 Sep, [facility] [place] [facility] [address] [id number] [place] [address]- 5867 July, [facility] [place] [facility] [address] [id number] [place] [address]- 0354 July, [facility] [place] [facility] [address] [id number] [place] [address]- 7363 July, [facility] [place] [facility] [address] [id number] [place] [address]- 0790 July, [facility] [place] [facility] [address] [id number], [place] [address]- 3974 Feb, [facility] [address] [id number] [place] [address]- 4410 Feb, [facility] [place] [facility] [address] [id number], [place] [address]- 8961 Jan, [facility] [place] [facility] [address] [facility] [id number] [place] [address]- 8697 Jan, [facility] [place] [facility] [address] [id number] [place] [address]- 9001 Jan, [facility] [place] [facility] [address] [id number] [place] [address]- 4120 Jan, [facility] [place] [facility] [address] [id number] [place] [address]- 2391 Nov, [facility] [address] [id number], [place] [address]- 3394 Aug, [facility] [place] [facility] [address] [id number] [place] [address]- 3772 July, [facility] [address] [id number] [place] [address]- 7251 Jun, [facility] [place] [facility] [address] [facility] [id number] [place] [address]- 8249 Apr, [facility] [place] [facility] [address] [id number], [place] [address]- 9635 Mar, [facility] [place] [facility] [address] [id number], [place] [address]- 8977 Mar, [facility] [place] [facility] [address] [id number], [place] [address]- 2909 Jan, [facility] [place] [facility] [address] [id number] [place] [address]- 7844 Jan, [facility] [place] [facility] [address] [facility] [id number] [place] [address]- 2877 Jan, [facility] [place] [facility] [address] [id number] [place] [address] 254 Jan, [facility] [place] [facility] [address] [id number] [place] [address]- 8038 Dec, [facility] [place] [facility] [address] [id number] [place] [address]- 2546 Dec, [facility] [place] [facility] [address] [id number] [place] [address]- 4465 Dec, [facility] [place] [facility] [address] [id number] [place] [address]- 6585 Dec, [facility] [place] [facility] [address] [id number] [place] [address]- 9522 Nov, [facility] [place] [facility] [address] [id number] [place] [address]- 8706 Oct, [facility] [place] [facility] [address] [id number] [place] [address]- 7655 July, [facility] [place] [facility] [address] [id number] [place] [address]- 1453 Mar, [facility] [place] [facility] [address] [id number] [place] [address]- 7960 Jan, [facility] [place] [facility] [address] [id number] [place] [address]- 1188 Jan, [facility] [place] [facility] [address] [id number] [place] [address]- 7339 Dec, [facility] [place] [facility] [address] [id number] [place] [address]- 4782 Dec, [facility] [place] [facility] [address] [id number] [place] [address]- 7329 Dec, [facility] [place] [facility] [address] [id number] [place] [address]- 2546 Nov, [facility] [place] [facility] [address] [id number] [place] [address]- 0338 July, [facility] [address] [id number] [address]- 3995 14 Jun, 2010 [facility] [address] [id number] [address] 2546 14 May, 2010 [facility] [id number] [address]- 5016 14 Apr, 2010 [facility] [address], [place] [address]- 0486 10 Apr, 2010 [facility] [id number] [address]- 2270 Mar, [facility] [address], [place] [address] 2546 Jan, [facility] [address], [place] [address]- 2706 Dec, [facility] [address], [place] [address]- 3086 Jun, [facility] [id number], [place] [address]- 3826 Jun, IMMUNIZATIONS Vaccine Route Administration Date Status FLUARIX QUAD (3 AND UP) 2016 IM Intramuscular Dec 15, 2016 Administered SOCIAL HISTORY Never Assessed REASON FOR VISIT [facility] VITAL SIGNS MEDICATIONS Unknown Medications RESULTS No Results PROCEDURES Procedure Date Ordered Result Body Site FLUARIX QUAD (3 & UP)-GSK-2014Dec 15, 2016 SINGLE IMMUNIZATION ADMIN Dec 15, 2016 INSTRUCTIONS MEDICATIONS ADMINISTERED No Known Medications MEDICAL (GENERAL) HISTORY Type Description Date Medical History prostatism Medical History chronic pain Medical History hypertension
--- OUTSIDE RECORDS SUMMARY | 2018-01-12 12:31 | XMS REPORT ---
Author Author RONAL CAMARGO [facility] e[employer] Address Unknown Phone Unavailable Care Team Providers Care Manager Sustainability Name Role Phone RONAL CAMARGO CP Unavailable Allergies, Adverse Reactions, Alerts Substance Reaction Event Type N.K.D.A. Info Not Available Non Drug Allergy Problems Problem Type Condition Code Onset Dates Condition Status Assessment Need for opjwlutdum-fplinmw-nbykeqljk (Tdap) vaccine Z23 Active Assessment Back pain M54.9 Active Assessment Urinary incontinence R32 Active Problem Essential hypertension, benign 401.1 Active Problem Hallux valgus (acquired) 735.0 Active Problem Back pain M54.9 Active Problem Need for prophylactic vaccination and inoculation, Influenza V04.81 Active Assessment Cellulitis L03.90 Active Problem Dermatophytosis of nail 110.1 Active Problem Corns and callosities 700 Active Medications Medication Code System Code Instructions Start Date End Date Status Dosage Lisinopril-Hydrochlorothiazide [facility] 28097172617 20-25 MG TAKE ONE TABLET BY MOUTH DAILY Finasteride [facility] [address]-17 5 MG Orally Once a day 1 tablet Bactrim DS [facility] [address]-97 800-160 MG Orally 2 times a day Dec 25, 2014 Jan 01, 2015 1 tablet Hydrocodone-Acetaminophen [facility] [address]-25 5-325 MG Orally 3 times a day May 31, 2014 1 tablet as needed Procedures Procedure Coding System Code Date SINGLE IMMUNIZATION ADMIN CPT-4 80351 Dec 25, 2014 [facility] VISIT ESTABLISHED PATIENT CPT-4 G0467 Dec 25, 2014 TDAP (BOOSTRIX) CPT-4 35436 Dec 25, 2014 Office Visit, Est Pt., Level 3 CPT-4 45582 Dec 25, 2014 Vital Signs Date/Time: Dec 25, 2014 Temperature 98.9 F Weight 180 lbs Height 66 in BMI 29.05 Index Blood Pressure Diastolic 80 mmHg Blood Pressure Systolic 112 mmHg Cardiac Monitoring Heart Rate 78 bpm Results No Known Results Immunizations Vaccine Administration Date TDAP (BOOSTRIX) Dec 25, 2014 Summary Purpose eClinicalWorks Submission
--- OUTSIDE RECORDS SUMMARY | 2018-01-12 12:31 | XMS REPORT ---
Author Author RONAL CAMARGO Organization [facility] Address [address] [place] [address] Care Team Providers Care Electric Razor Assembler Name Role Phone RONAL CAMARGO Unavailable PROBLEMS Type Condition ICD9-CM Code VYF53-CC Code Onset Dates Condition Status SNOMED Code Problem Corns and callosities 700 Active 281086489 Problem Need for prophylactic vaccination and inoculation, Influenza V04.81 Active 722357289 Problem Arthritis M19.90 Active 6068343 Problem Hypertension I10 Active 17525227 Problem Hallux valgus (acquired) 735.0 Active 96123137 Problem Dermatophytosis of nail 110.1 Active 612771722 Problem Back pain M54.9 Active 564629636 Problem Essential hypertension, benign 401.1 Active 2973288 ALLERGIES Unknown Allergies SOCIAL HISTORY No smoking Hx information available PLAN OF CARE VITAL SIGNS MEDICATIONS Medication Instructions Dosage Frequency Start Date End Date Duration Status Hydrocodone-Acetaminophen 5-325 MG Orally, need to be seen for more refills 3 times a day 1 tablet 8h Active RESULTS No Results PROCEDURES No Known procedures IMMUNIZATIONS No Known Immunizations
--- OUTSIDE RECORDS SUMMARY | 2018-01-12 12:31 | XMS REPORT ---
Author Author RONAL CAMARGO Organization [facility] Address [address] [place] [address] Care Team Providers Care Talent Acquisition Lead Name Role Phone RONAL CAMARGO Unavailable PROBLEMS Type Condition ICD9-CM Code BMC15-WP Code Onset Dates Condition Status SNOMED Code Problem Hypertension I10 Active 24317373 Problem Urge incontinence of urine N39.41 Active 31301352 Problem Arthritis M19.90 Active 0809327 Problem Back pain M54.9 Active 660946039 Problem Functional diarrhea K59.1 Active 53976818 Problem Right inguinal hernia K40.90 Active 263873698 Problem Pure hypercholesterolemia E78.00 Active 207266921 Problem Wilmore L84 Active 652848223 Problem Prostatism N40.0 Active 23881602 Problem Other chronic pain G89.29 Active 99356850 ALLERGIES No Information ENCOUNTERS Encounter Location Date Diagnosis [facility] [address] [address] Aug, Back pain M54.9 ; Prostatism N40.0 ; Functional diarrhea K59.1 and Right inguinal hernia K40.90 [facility] [id number] [place] [address]18- 6644 July, Other chronic pain G89.29 [facility] [id number] [place] [address] 01862- 4869 Jun, Other chronic pain G89.29 [facility] [address] [address]- [address] May, Other chronic pain G89.29 [facility] [id number] [place] [address] 37345- 1403 15 Apr, 2017 Other chronic pain G89.29 [facility] [address] [place] [address] Mar, Other chronic pain G89.29 [facility] [id number] [place] [address] 85764- 3095 Feb, Other chronic pain G89.29 [facility] [address] [address] Feb, Acute upper respiratory infection, unspecified J06.9 and Other viral agents as the cause of diseases classified elsewhere B97.89 [facility] [id number] [place] [address] 74449- 7659 Jan, [facility] [id number] [place] [address] 64101- 5240 Jan, Back pain M54.9 and Prostatism N40.0 [facility] [id number] [place] [address] 53080- 4987 Jan, Other chronic pain G89.29 [facility] [id number] [place] [address] 11172- 5274 Dec, [facility] [id number] [place] [address] 27424- 6136 Dec, Other chronic pain G89.29 [facility] [id number] [place] [address] 40206- 1589 Nov, Other chronic pain G89.29 [facility] [id number] [place] [address] 97877- 7380 Nov, Encounter for immunization Z23 [facility] [id number] [place] [address] 73150- 2814 Nov, Other chronic pain G89.29 [facility] [id number] [place] [address] 71221- 4727 Oct, Other chronic pain G89.29 [facility] [id number] [place] [address] 96620- 5378 Oct, Back pain M54.9 [facility] [id number] [place] [address] 89667- 8633 Sep, Back pain M54.9 [facility] [address] [address]16- 42[address] Aug, [facility] [address] [address]- [address]55 Aug, Back pain M54.9 [facility] [address] 63176- 0600 July, Back pain M54.9 [facility] [address] 51680- 4617 Jun, Weight loss R63.4 and Postural hypotension I95.1 [place] [address] [address]81- 5707 Jun, Back pain M54.9 [facility] [address] 80114- 0769 May, Back pain M54.9 [facility] [address] 29694- 7266 Apr, Back pain M54.9 [facility] [address] 65456- 2829 Apr, Pure hypercholesterolemia E78.00 [facility] [address] 78450- 8892 Apr, Hypertension I10 ; Back pain M54.9 ; Urge incontinence of urine N39.41 and Wilmore L84 [place] [address] 70084- 8558 Mar, [facility] [address] 95082- 1374 Mar, Other chronic pain G89.29 [facility] [address] 57750- 6110 Feb, [facility] [id number] [place] [address] 83272- 4988 Jan, [facility] [id number] [place] [address] 96620- 7069 Dec, [facility] [id number] [place] [address] 25314- 2823 Nov, [facility] [id number] [place] [address] 53315- 9010 Oct, [facility] [id number] [place] [address] 76342- 8410 Sep, Back pain M54.9 [facility] [id number] [place] [address] 99394- 6625 17 Aug, 2015 Back pain M54.9 and Hypertension I10 [facility] [id number] [place] [address] 80839 -6203 13 Aug, 2015 Low back pain M54.5 and Other chronic pain G89.29 [facility] [id number] [place] [address] 86813- 6706 10 Aug, 2015 Back pain M54.9 [facility] [id number] [place] [address] 66003- 9310 July, Back pain M54.9 [facility] [id number] [place] [address] 28504- 2269 06 Jun, 2015 Back pain M54.9 [facility] [id number] [place] [address] 85220- 7140 May, Back pain M54.9 [facility] [id number] [place] [address] 67612- 4048 04 Apr, 2015 Back pain M54.9 [facility] [id number] [place] [address] 18574- 1365 Mar, Back pain M54.9 [facility] [id number] [place] [address] 49059- 0098 Feb, Prostatitis N41.9 ; Arthritis M19.90 and Hypertension I10 [place] [address] 55051- 4563 Feb, [place] [address] 18007- 2714 Jan, [place] [address] 08491- 6141 Dec, Encounter for immunization Z23 [place] [address] 26382- 6441 Dec, [place] [address] 10966- 6605 Dec, Eye pain H57.[address] [address]- 8803 Dec, Contusion of left leg S80.12XA and Right shoulder injury S49.91XA [place] [address] 27505- 2083 Dec, Cellulitis L03.90 ; Back pain M54.9 ; Urinary incontinence R32 and Need for qyddfilxgz-ncttgcc-hrahginsb (Tdap) vaccine Z23 [place] [id number] [place] [address] 22873- 9143 Nov, Need for prophylactic vaccination with tetanus-diphtheria ( TD) V06.5 [place] [id number] [place] [address] 37742- 5554 Nov, [place] [address] 91845- 7421 Oct, [place] [id number] [place] [address] 29191- 9509 Sep, [place] [address] 08422- 0527 Sep, [facility] [place] [facility] [address] [id number] [place] [address]- 9356 Aug, [facility] [place] [facility] [address] [id number] [place] [address]- 5814 July, [facility] [place] [facility] [address] [id number] [place] [address]- 5536 July, [facility] [place] [facility] [address] [id number] [place] [address]- 4199 Jun, [facility] [place] [facility] [address] [id number] [place] [address]- 8431 Jun, [facility] [place] [facility] [address] [id number] [place] [address]- 3518 May, [facility] [place] [facility] [address] [id number] [place] [address]- 6098 May, [facility] [place] [facility] [address] [id number] [place] [address]- 5430 Apr, [facility] [place] [facility] [address] [id number] [place] [address]- 1089 Apr, [facility] [place] [facility] [address] [id number] [place] [address]- 7329 Mar, [facility] [place] [facility] [address] [id number] [place] [address]- 1696 Mar, [facility] [place] [facility] [address] [id number] [place] [address]- 6932 Mar, [facility] [place] [facility] [address] [id number] [place] [address]- 3881 Mar, [facility] [place] [facility] [address] [id number] [place] [address]- 1215 Mar, [facility] [place] [facility] [address] [id number] [place] [address]- 2402 Mar, [facility] [place] [facility] [address] [id number] [place] [address]- 5350 Mar, [facility] [address] [id number] [place] [address]- 9744 Mar, [facility] [place] [facility] [address] [id number] [place] [address]- 0293 Mar, [facility] [place] [facility] [address] [id number] [place] [address]- 6585 Mar, [facility] [place] [facility] [address] [id number] [place] [address]- 3615 Mar, [facility] [place] [facility] [address] [id number] [place] [address]- 5596 Mar, [facility] [place] [facility] [address] [id number] [place] [address]- 1702 Mar, [facility] [place] [facility] [address] [id number] [place] [address]- 2286 Mar, [facility] [place] [facility] [address] [id number] [place] [address]- 2622 Feb, [facility] [place] [facility] [address] [id number] [place] [address]- 2419 Feb, [facility] [place] [facility] [address] [id number] [place] [address]- 9393 Feb, [facility] [place] [facility] [address] [id number] [place] [address]- 7868 Feb, [facility] [place] [facility] [address] [id number] [place] [address]- 9154 Feb, [facility] [place] [facility] [address] [id number] [place] [address]- 9020 Feb, [facility] [place] [facility] [address] [id number] [place] [address]- 1127 Jan, [facility] [place] [facility] [address] [id number] [place] [address]- 9700 Jan, [facility] [place] [facility] [address] [id number] [place] [address]- 7665 Dec, [facility] [place] [facility] [address] [id number] [place] [address]- 6681 Dec, [facility] [place] [facility] [address] [id number] [place] [address]- 5725 Dec, [facility] [place] [facility] [address] [id number] [place] [address]- 1032 Dec, [facility] [place] [facility] [address] [id number] [place] [address]- 8858 Dec, [facility] [place] [facility] [address] [id number] [place] [address]- 1023 Dec, [facility] [place] [facility] [address] [id number] [place] [address]- 2241 Nov, [facility] [place] [facility] [address] [id number] [place] [address]- 8608 Nov, [facility] [place] [facility] [address] [id number] [place] [address]- 0702 Oct, [facility] [place] [facility] [address] [id number] [place] [address]- 0302 Oct, [facility] [place] [facility] [address] [id number] [place] [address]- 6620 Sep, [facility] [place] [facility] [address] [id number] [place] [address]- 8806 Sep, [facility] [place] [facility] [address] [id number] [place] [address]- 6629 Sep, [facility] [place] [facility] [address] [id number] [place] [address]- 3973 Sep, [facility] [place] [facility] [address] [id number] [place] [address]- 2524 July, [facility] [place] [facility] [address] [id number] [place] [address]- 0696 July, [facility] [address] [id number] [place] [address]- 5909 July, [facility] [place] [facility] [address] [id number] [place] [address]- 6876 July, [facility] [address] [id number] [place] [address]- 0387 Feb, [facility] [place] [facility] [address] [id number] [place] [address]- 3189 Feb, [facility] [place] [facility] [address] [id number] [place] [address]- 6025 Jan, [facility] [place] [facility] [address] [id number] [place] [address]- 7774 Jan, [facility] [place] [facility] [address] [id number] [place] [address]- 9117 Jan, [facility] [place] [facility] [address] [id number] [place] [address]- 1948 Jan, [facility] [place] [facility] [address] [id number] [place] [address]- 8613 Nov, [facility] [place] [facility] [address] [id number] [place] [address]- 9242 Aug, [facility] [place] [facility] [address] [id number] [place] [address]- 9435 July, [facility] [place] [facility] [address] [id number] [place] [address]- 3020 Jun, [facility] [place] [facility] [address] [id number] [place] [address]- 4896 Apr, [facility] [place] [facility] [address] [id number] [place] [address]- 3348 Mar, [facility] [place] [facility] [address] [id number] [place] [address]- 0776 Mar, [facility] [place] [facility] [address] [id number] [place] [address]- 5948 13 Jan, 2012 [facility] [place] [facility] [address] [id number] [place] [address]- 1737 Jan, [facility] [place] [facility] [address] [id number] [place] [address] 2546 Jan, [facility] [place] [facility] [address] [id number] [place] [address]- 2839 Jan, [facility] [place] [facility] [address] [id number] [place] [address]- 9441 Dec, [facility] [place] [facility] [id number] [place] [address], [place] [address]- 8589 Dec, [facility] [place] [facility] [address] [id number] [place] [address]- 0262 Dec, [facility] [place] [facility] [address] [id number] [place] [address]- 9551 Dec, [facility] [place] [facility] [address] [id number] [place] [address]- 9516 Nov, [facility] [place] [facility] [address] [id number] [place] [address]- 1738 Oct, [facility] [place] [facility] [address] [id number] [place] [address]- 7657 July, [facility] [place] [facility] [address] [id number] [place] [address]- 0575 Mar, [facility] [place] [facility] [address] [id number] [place] [address]- 2857 Jan, [facility] [place] [facility] [address] [id number] [place] [address]- 7597 Jan, [facility] [place] [facility] [address] [id number] [place] [address]- 7116 Dec, [facility] [place] [facility] [address] [id number] [place] [address]- 7383 Dec, [facility] [address] [facility] [id number] [address]- 0926 17 Dec, 2010 [facility] [address] [facility] [id number], [place] [address]- 0336 14 Nov, 2010 [facility] [address] [facility] [id number], [place] [address]- 3746 July, [facility] [address] [facility] [id number], [place] [address]- 5726 Jun, [facility] [address] [facility] [id number], [place] [address]- 9428 May, [facility] [address] [facility] [id number], [place] [address]- 8466 14 Apr, 2010 [facility] [address] [address]- 2166 Apr, [facility] [address] [address]- 6446 Mar, [facility] [address] [address]- 9746 Jan, [facility] [id number] [address]- 0996 Dec, [facility] [address] [id number] [address]- 8456 Jun, [facility] [address] [id number] [address]- 4096 Jun, IMMUNIZATIONS No Known Immunizations SOCIAL HISTORY Never Assessed REASON FOR VISIT Hydrocodone 05/11 PLAN OF CARE VITAL SIGNS MEDICATIONS Medication Instructions Dosage Frequency Start Date End Date Duration Status Hydrocodone-Acetaminophen 5-325 MG Orally 3 times a day 1 tablet 8h Apr 28 days Active RESULTS No Results PROCEDURES No Known procedures INSTRUCTIONS MEDICATIONS ADMINISTERED No Known Medications MEDICAL (GENERAL) HISTORY Type Description Date Medical History prostatism Medical History chronic pain Medical History hypertension
--- OUTSIDE RECORDS SUMMARY | 2018-01-12 12:31 | XMS REPORT ---
Author Author RONAL CAMARGO [facility] eClinical[employer] Address Unknown Phone Unavailable Care Team Providers Care Software Engineer Kernel Name Role Phone RONAL CAMARGO CP Unavailable Allergies, Adverse Reactions, Alerts Substance Reaction Event Type N.K.D.A. Info Not Available Non Drug Allergy Problems Problem Type Condition Code Onset Dates Condition Status Assessment Arthritis M19.90 Active Problem Need for prophylactic vaccination and inoculation, Influenza V04.81 Active Assessment Prostatitis N41.9 Active Assessment Hypertension I10 Active Problem Hypertension I10 Active Problem Back pain M54.9 Active Problem Arthritis M19.90 Active Problem Dermatophytosis of nail 110.1 Active Problem Corns and callosities 700 Active Problem Essential hypertension, benign 401.1 Active Problem Hallux valgus (acquired) 735.0 Active Medications Medication Code System Code Instructions Start Date End Date Status Dosage Bactrim DS [facility] [address]-71 800-160 MG Orally Twice a day Mar 08, 2015 Mar 22, 2015 1 tablet Hydrocodone-Acetaminophen [facility] [address]-68 5-325 MG Orally 3 times a day May 31, 2014 1 tablet as needed Finasteride [facility] [address]-79 5 MG Orally Once a day 1 tablet Lisinopril-Hydrochlorothiazide [facility] 04696509454 20-25 MG TAKE ONE TABLET BY MOUTH DAILY Procedures Procedure Coding System Code Date ASSAY OF PSA, TOTAL CPT-4 81191 Mar 08, 2015 [facility] NOBLL Mar 08, 2015 URINALYSIS, AUTO, W/O SCOPE CPT-4 44526 Mar 08, 2015 [facility]LY [facility] VISIT ESTABLISHED PATIENT CPT-4 G0467 Mar 08, 2015 VENIPUNCT, ROUTINE* CPT-4 76069 Mar 08, 2015 Office Visit, Est Pt., Level 3 CPT-4 22449 Mar 08, 2015 Vital Signs Date/Time: Mar 08, 2015 Temperature 97.9 F Weight 183.5 lbs Height 66 in BMI 29.61 Index Blood Pressure Diastolic 90 mmHg Blood Pressure Systolic 140 mmHg Cardiac Monitoring Heart Rate 72 bpm Results Name Result Date Reference Range Unit Abnormality Flag UA LONG DIP (IN HOUSE) ----CLEO Negative 20150308 ----NIT Negative 20150308 ----Exp date 20150308 ----Lot # [id number] ----SG 1.020 20150308 ----KET Negative [id number] ----AJ Negative [id number] ----GLU Negative [id number] ----Odor None 20150308 ----pH 5.5 20150308 ----BLO Negative [id number] ----URO 0.2 20150308 ----Protein Negative [id number] ----Lot # [id number] ----Exp date 20150308 ----Clarity Clear [id number] ----Color Yellow [id number] ROUTINE VENIPUNCTURE Summary Purpose eClinicalWorks Submission
--- OUTSIDE RECORDS SUMMARY | 2018-01-12 12:31 | XMS REPORT ---
Author Author RONAL CAMARGO [facility] eClinical[employer] Address Unknown Phone Unavailable Care Team Providers Care Assignment Manager Name Role Phone RONAL CAMARGO CP Unavailable Allergies No Known Allergies Problems Problem Type Condition Code Onset Dates Condition Status Problem Need for prophylactic vaccination and inoculation, Influenza V04.81 Active Problem Hypertension I10 Active Problem Back pain M54.9 Active Problem Arthritis M19.90 Active Problem Dermatophytosis of nail 110.1 Active Problem Corns and callosities 700 Active Problem Essential hypertension, benign 401.1 Active Problem Hallux valgus (acquired) 735.0 Active Medications Medication Code System Code Instructions Start Date End Date Status Dosage Hydrocodone-Acetaminophen [facility] [address]-25 5-325 MG Orally, 3 times a day May 31, 2014 1 tablet as needed Results No Known Results Summary Purpose eClinicalWorks Submission
--- OUTSIDE RECORDS SUMMARY | 2018-01-12 12:31 | XMS REPORT ---
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 Problem Essential hypertension, benign 401.1 Active Problem Hallux valgus (acquired) 735.0 Active Problem Other hammer toe (acquired) 735.4 Active Problem Blood in stool 578.1 Active Problem Need for prophylactic vaccination and inoculation, Influenza V04.81 Active Problem Acute bronchitis 466.0 Active Problem Corns and callosities 700 Active Assessment Need for prophylactic vaccination with tetanus-diphtheria (TD) V06.5 Active Problem Lumbago 724.2 Active Medications No Known Medications Procedures Procedure Coding System Code Date SINGLE IMMUNIZATION ADMIN CPT-4 63672 Dec 20, 2014 TD VACCINE NO PRSRV >/=7 IM CPT-4 10642 Dec 20, 2014 Results No Known Results Immunizations Vaccine Administration Date Td (adult) preservative free Dec 20, 2014 Summary Purpose eClinicalWorks Submission
--- OUTSIDE RECORDS SUMMARY | 2018-01-12 12:31 | XMS REPORT ---
Author Author RONAL CAMARGO Organization [employer] Address Unknown Phone Unavailable Care Team Providers Care Rice Farmer Name Role Phone RONAL CAMARGO CP Unavailable Allergies No Known Allergies Problems Problem Type Condition Code Onset Dates Condition Status Problem Essential hypertension, benign 401.1 Active Problem Hallux valgus (acquired) 735.0 Active Problem Back pain M54.9 Active Problem Need for prophylactic vaccination and inoculation, Influenza V04.81 Active Problem Dermatophytosis of nail 110.1 Active Problem Corns and callosities 700 Active Medications Medication Code System Code Instructions Start Date End Date Status Dosage Hydrocodone-Acetaminophen [facility] [address]-92 5-325 MG Orally 3 times a day May 31, 2014 1 tablet as needed Results No Known Results Summary Purpose eClinicalWorks Submission
--- OUTSIDE RECORDS SUMMARY | 2018-01-12 12:31 | XMS REPORT ---
Author Author RONAL CAMARGO Organization [employer] Address Unknown Phone Unavailable Care Team Providers Care Site Acquisition Specialist Name Role Phone RONAL CAMARGO CP Unavailable Allergies No Known Allergies Problems Problem Type Condition ICD-9 Code Onset Dates Condition Status Problem Foot [...] Problem Corns and callosities 700 Active Problem Lumbago 724.2 Active Medications Medication Code System Code Instructions Start Date End Date Status Dosage Hydrocodone-Acetaminophen [facility] [address]-14 5-325 MG Orally 3 times a day May 31, 2014 1 tablet as needed Results No Known Results Summary Purpose eClinicalWorks Submission
--- OUTSIDE RECORDS SUMMARY | 2018-01-12 12:31 | XMS REPORT ---
Author Author RONAL CAMARGO [facility] Address [address] [place] [address] Care Team Providers Care Applique Sewer Name Role Phone RONAL CAMARGO Unavailable PROBLEMS Type Condition ICD9-CM Code [id number] Code Onset Dates Condition Status SNOMED Code Problem Back pain M54.9 Active 682765584 Problem Other chronic pain G89.29 Active 64446804 Problem Pure hypercholesterolemia E78.00 Active 594321333 Problem Hypertension I10 Active 11290461 Problem Arthritis M19.90 Active 5338630 Problem [place] L84 Active 629927819 Problem Urge incontinence of urine N39.41 Active 56300794 ALLERGIES No Information SOCIAL HISTORY Never Assessed PLAN OF CARE VITAL SIGNS MEDICATIONS Medication Instructions Dosage Frequency Start Date End Date Duration Status Pravastatin Sodium 10 mg Orally Once a day,hs 1 tablet Apr, 30 day(s) Active RESULTS No Results PROCEDURES No Known procedures IMMUNIZATIONS No Known Immunizations MEDICAL (GENERAL) HISTORY Type Description Date Medical History prostatism Medical History chronic pain Medical History hypertension
--- OUTSIDE RECORDS SUMMARY | 2018-01-12 12:31 | XMS REPORT ---
Author Author RONAL CAMARGO Organization [employer] Address Unknown Phone Unavailable Care Team Providers Care Social Media Marketing Analyst Name Role Phone RONAL CAMARGO CP Unavailable Allergies No Known Allergies Problems Problem Type Condition Code Onset Dates Condition Status Assessment Right shoulder injury S49.91XA Active Problem Essential hypertension, benign 401.1 Active Problem Hallux valgus (acquired) 735.0 Active Problem Back pain M54.9 Active Problem Need for prophylactic vaccination and inoculation, Influenza V04.81 Active Assessment Contusion of left leg S80.12XA Active Problem Dermatophytosis of nail 110.1 Active Problem Corns and callosities 700 Active Medications No Known Medications Results No Known Results Summary Purpose [employer] Submission
--- OUTSIDE RECORDS SUMMARY | 2018-01-12 12:32 | XMS REPORT ---
Author Author RONAL CAMARGO Organization [employer] Address Unknown Phone Unavailable Care Team Providers Care Merchandise Flow Manager Name Role Phone RONAL CAMARGO CP Unavailable Allergies No Known Allergies Problems Problem Type Condition Code Onset Dates Condition Status Problem Essential hypertension, benign 401.1 Active Problem Hallux valgus (acquired) 735.0 Active Problem Back pain M54.9 Active Problem Need for prophylactic vaccination and inoculation, Influenza V04.81 Active Assessment Encounter for immunization Z23 Active Problem Dermatophytosis of nail 110.1 Active Problem Corns and callosities 700 Active Medications No Known Medications Procedures Procedure Coding System Code Date SINGLE IMMUNIZATION ADMIN CPT-4 49888 Jan 15, 2015 FLUARIX QUAD (3 & UP)-GSK-2014 CPT-4 70806 Jan 15, 2015 Results No Known Results Immunizations Vaccine Administration Date FLUARIX QUAD (3 & UP)-GSK-2014Jan 15, 2015 Summary Purpose [employer] Submission
--- OUTSIDE RECORDS SUMMARY | 2018-01-12 12:32 | XMS REPORT ---
Author Author RONAL CAMARGO Organization [facility] Address [address] [place] [address] Care Team Providers Care Kiss Mixer Name Role Phone RONAL CAMARGO Unavailable PROBLEMS Type Condition ICD9-CM Code [id number] Code Onset Dates Condition Status SNOMED Code Problem Arthritis M19.90 Active 1266617 Problem Back pain M54.9 Active 641075155 Problem Prostatism N40.0 Active 90985572 Problem Other chronic pain G89.29 Active 18689861 Problem Urge incontinence of urine N39.41 Active 42919396 Problem Hypertension I10 Active 13713979 Problem Pure hypercholesterolemia E78.00 Active 745998873 Problem [place] L84 Active 637305869 ALLERGIES No Known Allergies ENCOUNTERS Encounter Location Date Diagnosis [facility] [id number] [place] [address] 88222- 3868 Aug, [facility] [address] [address]- [address]70 July, Other chronic pain G89.29 [facility] [id number] [place] [address] 37715- 9041 Jun, Other chronic pain G89.29 [facility] [id number] [place] [address] 17843- 6952 May, Other chronic pain G89.29 [facility] [id number] [place] [address] 62500- 1531 Apr, Other chronic pain G89.29 [facility] [address] 64207- 2766 Mar, Other chronic pain G89.29 [facility] [address] 46790- 9889 Feb, Other chronic pain G89.29 [facility] [address] [address] Feb, Acute upper respiratory infection, unspecified J06.9 and Other viral agents as the cause of diseases classified elsewhere B97.89 [facility] [id number] [place] [address] 17780- 4204 Jan, [facility] [id number] [place] [address] 06277- 4705 Jan, Back pain M54.9 and Prostatism N40.0 [facility] [id number] [place] [address] 40308- 1530 Jan, Other chronic pain G89.29 [facility] [id number] [place] [address] 25374- 5541 Dec, [facility] [id number] [place] [address] 46935- 9636 Dec, Other chronic pain G89.29 [facility] [id number] [place] [address] 73211- 0115 Nov, Other chronic pain G89.29 [facility] [id number] [place] [address] 16381- 4109 Nov, Encounter for immunization Z23 [facility] [id number] [place] [address] 44336- 3116 Nov, Other chronic pain G89.29 [facility] [id number] [place] [address] 15195- 6823 Oct, Other chronic pain G89.29 [facility] [id number] [place] [address] 44028- 4622 Oct, Back pain M54.9 [facility] [id number] [place] [address] 82725- 1083 Sep, Back pain M54.9 [facility] [address] [place] [address] 8623 Aug, [facility] [address] 27533- 3771 Aug, Back pain M54.9 [facility] [address] 84652- 0110 July, Back pain M54.9 [facility] [address] 27052- 1648 Jun, Weight loss R63.4 and Postural hypotension I95.1 [facility] [address] 22415- 8842 Jun, Back pain M54.9 [facility] [address] 17405- 9782 May, Back pain M54.9 [facility] [address] 68191- 2311 Apr, Back pain M54.9 [facility] [address] 89468- 2904 Apr, Pure hypercholesterolemia E78.00 [facility] [address] 58405- 7880 06 Apr, 2016 Hypertension I10 ; Back pain M54.9 ; Urge incontinence of urine N39.41 and [place] L84 [place] [id number] [place] [address] 00454- 9823 Mar, [facility] [id number] [place] [address] 75070- 2328 Mar, Other chronic pain G89.29 [facility] [address] 04495- 7765 Feb, [facility] [address] 45999- 2833 Jan, [facility] [address] [place] [address]- 9783 28 Dec, 2015 [facility] [id number] [place] [address] 31741- 9025 28 Nov, 2015 [facility] [id number] [place] [address] 15526- 5528 05 Oct, 2015 [facility] [id number] [place] [address] 61827- 2146 Sep, Back pain M54.9 [facility] [id number] [place] [address] 22884- 5098 17 Aug, 2015 Back pain M54.9 and Hypertension I10 [facility] [id number] [place] [address] 71352 -5958 13 Aug, 2015 Low back pain M54.5 and Other chronic pain G89.29 [facility] [id number] [place] [address] 67708- 0054 Aug, Back pain M54.9 [facility] [id number] [place] [address] 01411- 1868 July, Back pain M54.9 [facility] [id number] [place] [address] 18421- 0195 06 Jun, 2015 Back pain M54.9 [facility] [id number] [place] [address] 72281- 8309 May, Back pain M54.9 [facility] [id number] [place] [address] 75952- 6510 04 Apr, 2015 Back pain M54.9 [facility] [id number] [place] [address] 02573- 3287 Mar, Back pain M54.9 [facility] [address] [place] [address] 21395- 7307 17 Feb, 2015 Prostatitis N41.9 ; Arthritis M19.90 and Hypertension I10 [facility] [id number] [place] [address] 10754- 8486 Feb, [facility] [id number] [place] [address] 90350- 0495 Jan, [facility] [id number] [place] [address] 889845- 0964 Dec, Encounter for immunization Z23 [place] [address] 78074- 5845 Dec, [place] [address] 45500- 0066 Dec, Eye pain H57.10 [place] [address] 67784- 6662 Dec, Contusion of left leg S80.12XA and Right shoulder injury S49.91XA [place] [address] 49210- 0432 Dec, Cellulitis L03.90 ; Back pain M54.9 ; Urinary incontinence R32 and Need for awhewauqhl-hantffp-vfixikuek (Tdap) vaccine Z23 [place] [id number] [place] [address] 98161- 6921 Nov, Need for prophylactic vaccination with tetanus-diphtheria ( TD) V06.5 [place] [id number] [place] [address] 05082- 6734 Nov, [facility] [id number] [place] [address] 17122- 9520 Oct, [facility] [id number] [place] [address] 20773- 6762 Sep, [facility] [id number] [place] [address] 26438- 7487 Sep, [facility] [id number] [place] [address] 658383- 2281 Aug, [facility] [id number] [place] [address] 11294- 9320 July, [facility] [place] [facility] [address] [id number] [place] [address]- 9900 July, [facility] [place] [facility] [address] [id number] [place] [address]- 1388 Jun, [facility] [place] [facility] [address] [id number] [place] [address]- 3433 Jun, [facility] [place] [facility] [address] [id number] [place] [address]- 7073 May, [facility] [place] [facility] [address] [id number] [place] [address]- 0324 May, [facility] [place] [facility] [address] [id number] [place] [address]- 0693 Apr, [facility] [place] [facility] [address] [id number] [place] [address]- 2964 Apr, [facility] [place] [facility] [address] [id number] [place] [address]- 7038 Mar, [facility] [place] [facility] [address] [id number] [place] [address]- 3344 Mar, [facility] [place] [facility] [address] [facility] [id number] [place] [address]- 7942 Mar, [facility] [place] [facility] [address] [id number] [place] [address]- 1739 Mar, [facility] [place] [facility] [address] [id number] [place] [address]- 6507 Mar, [facility] [place] [facility] [address] [id number] [place] [address]- 6691 Mar, [facility] [place] [facility] [address] [id number] [place] [address]- 8374 Mar, [facility] [place] [facility] [address] [id number] [place] [address]- 5493 Mar, [facility] [place] [facility] [address] [id number] [place] [address]- 1490 Mar, [facility] [place] [facility] [address] [id number] [place] [address]- 9385 Mar, [facility] [place] [facility] [address] [id number] [place] [address]- 2304 Mar, [facility] [place] [facility] [address] [id number] [place] [address]- 4916 Mar, [facility] [place] [facility] [address] [id number] [place] [address]- 0170 Mar, [facility] [place] [facility] [address] [id number] [place] [address]- 9627 Mar, [facility] [place] [facility] [address] [id number] [place] [address]- 5371 Feb, [facility] [place] [facility] [address] [id number] [place] [address]- 6548 Feb, [facility] [place] [facility] [address] [id number] [place] [address]- 7047 Feb, [facility] [place] [facility] [address] [id number] [place] [address]- 1508 Feb, [facility] [place] [facility] [address] [id number] [place] [address]- 3443 Feb, [facility] [place] [facility] [address] [id number] [place] [address]- 9899 Feb, [facility] [place] [facility] [address] [id number] [place] [address]- 6994 Jan, [facility] [place] [facility] [address] [id number] [place] [address]- 8060 Jan, [facility] [place] [facility] [address] [id number] [place] [address]- 3662 Dec, [facility] [place] [facility] [address] [id number] [place] [address]- 3604 Dec, [facility] [place] [facility] [address] [id number] [place] [address]- 2859 Dec, [facility] [place] [facility] [address] [id number] [place] [address]- 1899 Dec, [facility] [place] [facility] [address] [id number] [place] [address]- 5760 Dec, [facility] [place] [facility] [address] [id number] [place] [address]- 0722 Dec, [facility] [place] [facility] [address] [id number] [place] [address]- 4376 Nov, [facility] [place] [facility] [address] [id number] [place] [address]- 8143 Nov, [facility] [place] [facility] [address] [id number] [place] [address]- 4243 Oct, [facility] [place] [facility] [address] [id number] [place] [address]- 9650 Oct, [facility] [place] [facility] [address] [id number] [place] [address]- 6249 Sep, [facility] [place] [facility] [address] [id number] [place] [address]- 1081 Sep, [facility] [place] [facility] [address] [id number] [place] [address]- 2619 Sep, [facility] [place] [facility] [address] [id number] [place] [address]- 9673 Sep, [facility] [place] [facility] [address] [id number] [place] [address]- 0625 July, [facility] [place] [facility] [address] [id number] [place] [address]- 8080 July, [facility] [place] [facility] [address] [id number] [place] [address]- 4328 July, [facility] [place] [facility] [address] [id number] [place] [address]- 6405 July, [facility] [address] [id number] [place] [address]- 6226 Feb, [facility] [address] [id number] [place] [address]- 6014 30 Feb, 2013 [facility] [address] [id number] [place] [address]- 5704 Jan, [facility] [address] [id number] [place] [address]- 8931 Jan, [facility] [address] [id number] [place] [address]- 1847 Jan, [facility] [address] [id number] [place] [address]- 7179 Jan, [facility] [address] [id number] [place] [address]- 6489 Nov, [facility] [address] [id number] [place] [address]- 5097 Aug, [facility] [address] [id number] [place] [address]- 1343 July, [facility] [address] [id number] [place] [address]- 0718 Jun, [facility] [address] [id number] [place] [address]- 2530 Apr, [facility] [address] [id number] [place] [address]- 6694 Mar, [facility] [address] [id number] [place] [address]- 1160 Mar, [facility] [address] [id number] [place] [address]- 6316 Jan, [facility] [address] [id number] [place] [address]- 3396 Jan, [facility] [place] [facility] [address] [id number] [place] [address]- 0296 Jan, [facility] [place] [facility] [address] [id number] [place] [address]- 2206 Jan, [facility] [place] [facility] [address] [id number] [place] [address]- 4646 Dec, [facility] [place] [facility] [address] [id number] [place] [address]- 6306 Dec, [facility] [place] [facility] [address] [id number] [place] [address]- 8699 Dec, [facility] [place] [facility] [address] [id number] [place] [address]- 9106 Dec, [facility] [place] [facility] [address] [facility] [id number] [place] [address]- 9386 Nov, [facility] [place] [facility] [address] [id number], [place] [address]- 9632 Oct, [facility] [place] [facility] [address] [facility] [id number] [place] [address]- 2400 July, [facility] [place] [facility] [address] [facility] [id number], [place] [address]- 0135 Mar, [facility] [place] [facility] [address] [facility] [id number], [place] [address]- 7378 Jan, [facility] [place] [facility] [address] [id number], [place] [address]- 7934 Jan, [facility] [place] [facility] [address] [id number], [place] [address]- 7465 Dec, [facility] [place] [facility] [address] [id number], [place] [address]- 9046 Dec, [facility] [place] [facility] [address] [facility] [id number], [place] [address]- 0393 Dec, [facility] [place] [facility] [address] [id number], [place] [address]- 6578 14 Nov, 2010 [facility] [id number] [address]- 6643 July, [facility] [address] [address]- 3945 Jun, [facility] [address] [address]- 4416 May, [facility] [address] [address]- 1073 14 Apr, 2010 [facility] [address] [place] [address] 67492- 6226 Apr, [facility] [address] [address]- 1537 Mar, [facility] [address] [address]- 1815 Jan, [facility] [address] [place] [address]- 2544 Dec, [facility] [address] [address]- 1594 17 Jun, 2009 [facility] [id number] [address]- 3758 Jun, IMMUNIZATIONS No Known Immunizations SOCIAL HISTORY Never Assessed REASON FOR VISIT wanting referral- wants to see about getting a refferal to get spine injections , or try a different pain meds. also has had a cold for 2 weeks- Misty Sumner RN, Stoped taking his BP meds about 6 months ago PLAN OF CARE Activity Details Follow Up 3 Months Reason: VITAL SIGNS Height 66 in 2017-02-17 Weight 167 lbs 2017-02-17 Temperature 98.2 degrees Fahrenheit 2017-02-17 Heart Rate 70 bpm 2017-02-17 Respiratory Rate 18 2017-02-17 BMI 26.95 kg/m2 2017-02-17 Blood pressure systolic 140 mmHg 2017-02-17 Blood pressure diastolic 82 mmHg 2017-02-17 MEDICATIONS Medication Instructions Dosage Frequency Start Date End Date Duration Status Hydrocodone-Acetaminophen 5-325 MG Orally 3 times a day 1 tablet 8h Jan 28 days Active Flomax 0.4 MG Orally Once a day 1 capsule 24h Active RESULTS No Results PROCEDURES Procedure Date Ordered Result Body Site [facility] Feb 17, 2017 [place], ROUTINE* Feb 17, 2017 [facility] VISIT ESTABLISHED PATIENT Feb 17, 2017 INSTRUCTIONS MEDICATIONS ADMINISTERED No Known Medications MEDICAL (GENERAL) HISTORY Type Description Date Medical History prostatism Medical History chronic pain Medical History hypertension
--- OUTSIDE RECORDS SUMMARY | 2018-01-12 12:32 | XMS REPORT ---
Author Author ELHAM JIMENEZ Organization [facility] Address [address] [place] [address] Care Team Providers Care Carpenter'S Assistant Name Role Phone ELHAM JIMENEZ Unavailable PROBLEMS Type Condition ICD9-CM Code HGE90-BG Code Onset Dates Condition Status SNOMED Code Problem Arthritis M19.90 Active 0519216 Problem Back pain M54.9 Active 355145440 Problem Prostatism N40.0 Active 07322066 Problem Other chronic pain G89.29 Active 76927088 Problem Urge incontinence of urine N39.41 Active 22232945 Problem Hypertension I10 Active 16703729 Problem Pure hypercholesterolemia E78.00 Active 856857391 Problem Orlando L84 Active 168259826 ALLERGIES No Known Allergies ENCOUNTERS Encounter Location Date Diagnosis [facility] [id number] [place] [address] 15363- 7858 Aug, [facility] [address] [address]39- 8399 July, Other chronic pain G89.29 [facility] [id number] [place] [address] 54036- 4074 Jun, Other chronic pain G89.29 [facility] [id number] [place] [address] 16089- 1687 May, Other chronic pain G89.29 [facility] [id number] [place] [address] 70285- 2224 Apr, Other chronic pain G89.29 [facility] [id number] [place] [address] 99425- 6659 Mar, Other chronic pain G89.29 [facility] [id number] [place] [address] 59636- 2698 Feb, Other chronic pain G89.29 [facility] [address] [place] [address] 76388 -3691 Feb, Acute upper respiratory infection, unspecified J06.9 and Other viral agents as the cause of diseases classified elsewhere B97.89 [facility] [id number] [place] [address] 00123- 1083 Jan, [facility] [address] 58728- 9450 Jan, Back pain M54.9 and Prostatism N40.0 [facility] [address] 04871- 6262 Jan, Other chronic pain G89.29 [facility] [id number] [place] [address] 36259- 5957 Dec, [facility] [address] 35230- 7951 Dec, Other chronic pain G89.29 [facility] [id number] [place] [address] 26758- 8999 Nov, Other chronic pain G89.29 [facility] [id number] [place] [address] 07405- 8792 Nov, Encounter for immunization Z23 [facility] [id number] [place] [address] 32665- 4799 Nov, Other chronic pain G89.29 [facility] [id number] [place] [address] 03155- 6368 Oct, Other chronic pain G89.29 [facility] [id number] [place] [address] 09669- 0720 Oct, Back pain M54.9 [facility] [id number] [place] [address] 75597- 9820 Sep, Back pain M54.9 [facility] [id number] [place] [address] 34671- 0769 Aug, [facility] [id number] [place] [address] 69383- 7253 Aug, Back pain M54.9 [facility] [id number] [place] [address] 36755- 2682 July, Back pain M54.9 [facility] [address] 09769- 4149 Jun, Weight loss R63.4 and Postural hypotension I95.1 [facility] [address] 08763- 0988 Jun, Back pain M54.9 [facility] [id number] [place] [address] 62328- 5143 May, Back pain M54.9 [facility] [address] 83350- 8519 Apr, Back pain M54.9 [facility] [id number] [place] [address] 60772- 1605 Apr, Pure hypercholesterolemia E78.00 [facility] [id number] [place] [address] 19864- 8678 06 Apr, 2016 Hypertension I10 ; Back pain M54.9 ; Urge incontinence of urine N39.41 and Orlando L84 [facility] [id number] [place] [address] 18154- 3171 Mar, [facility] [id number] [place] [address] 08098- 3022 Mar, Other chronic pain G89.29 [facility] [address] 56161- 1229 Feb, [facility] [id number] [place] [address] 80385- 5473 Jan, [facility] [address] [place] [address] 4193 Dec, [facility] [address] [place] [address] 57618- 7555 28 Nov, 2015 [facility] [address] [place] [address] 40393- 0072 05 Oct, 2015 [facility] [id number] [place] [address] 37175- 9359 Sep, Back pain M54.9 [facility] [id number] [place] [address] 79510- 3813 17 Aug, 2015 Back pain M54.9 and Hypertension I10 [facility] [id number] [place] [address] 33387 -1610 13 Aug, 2015 Low back pain M54.5 and Other chronic pain G89.29 [facility] [id number] [place] [address] 81691- 1620 Aug, Back pain M54.9 [facility] [id number] [place] [address] 58763- 0909 July, Back pain M54.9 [facility] [id number] [place] [address] 53443- 6269 06 Jun, 2015 Back pain M54.9 [facility] [id number] [place] [address] 05216- 7616 May, Back pain M54.9 [facility] [address] [place] [address] 10290- 8878 04 Apr, 2015 Back pain M54.9 [facility] [address] [place] [address] 68292- 9208 Mar, Back pain M54.9 [facility] [address] [address]- 7702 17 Feb, 2015 Prostatitis N41.9 ; Arthritis M19.90 and Hypertension I10 [facility] [id number] [place] [address] 37797- 1487 Feb, [facility] [id number] [place] [address] 73652- 4510 Jan, [facility] [id number] [place] [address] 438820- 1071 Dec, Encounter for immunization Z23 [facility] [address] 25839- 9431 Dec, [facility] [id number] [place] [address] 13165- 0981 Dec, Eye pain H57.10 [facility] [address] 62485- 5736 Dec, Contusion of left leg S80.12XA and Right shoulder injury S49.91XA [facility] [address] 73313- 5622 Dec, Cellulitis L03.90 ; Back pain M54.9 ; Urinary incontinence R32 and Need for agvrljzyxz-dhcvhbe-frdkbgkub (Tdap) vaccine Z23 [facility] [id number] [place] [address] 17635- 6047 Nov, Need for prophylactic vaccination with tetanus-diphtheria ( TD) V06.5 [facility] [id number] [place] [address] 81729- 6431 Nov, [facility] [id number] [place] [address] 74061- 4079 Oct, [facility] [id number] [place] [address] 12551- 3619 Sep, [facility] [id number] [place] [address] 82780- 0560 Sep, [facility] [id number] [place] [address] 716444- 6790 Aug, [facility] [address] [place] [address]- 9204 July, [facility] [place] [facility] [address] [id number] [place] [address]- 9490 July, [facility] [place] [facility] [address] [id number] [place] [address]- 7869 Jun, [facility] [place] [facility] [address] [id number] [place] [address]- 4344 Jun, [facility] [place] [facility] [address] [id number] [place] [address]- 5058 May, [facility] [place] [facility] [address] [id number] [place] [address]- 8476 May, [facility] [place] [facility] [address] [id number] [place] [address]- 0471 Apr, [facility] [place] [facility] [address] [id number] [place] [address]- 1469 Apr, [facility] [place] [facility] [address] [id number] [place] [address]- 2157 Mar, [facility] [place] [facility] [address] [id number] [place] [address]- 5488 Mar, [facility] [place] [facility] [address] [id number] [place] [address]- 1795 Mar, [facility] [place] [facility] [address] [id number] [place] [address]- 7269 Mar, [facility] [place] [facility] [address] [id number] [place] [address]- 9248 Mar, [facility] [place] [facility] [address] [id number] [place] [address]- 4563 Mar, [facility] [place] [facility] [address] [id number] [place] [address]- 7953 Mar, [facility] [place] [facility] [address] [id number] [place] [address]- 2969 Mar, [facility] [place] [facility] [address] [id number] [place] [address]- 2426 Mar, [facility] [place] [facility] [address] [id number] [place] [address]- 7200 Mar, [facility] [place] [facility] [address] [id number] [place] [address]- 3435 Mar, [facility] [place] [facility] [address] [id number] [place] [address]- 7203 Mar, [facility] [place] [facility] [address] [id number] [place] [address]- 4827 Mar, [facility] [place] [facility] [address] [id number] [place] [address]- 7194 Mar, [facility] [place] [facility] [address] [id number] [place] [address]- 1298 Feb, [facility] [place] [facility] [address] [id number] [place] [address]- 1160 Feb, [facility] [place] [facility] [address] [id number] [place] [address]- 9971 Feb, [facility] [place] [facility] [address] [id number] [place] [address]- 2756 Feb, [facility] [place] [facility] [address] [id number] [place] [address]- 4509 Feb, [facility] [place] [facility] [address] [id number] [place] [address]- 4448 Feb, [facility] [place] [facility] [address] [id number] [place] [address]- 5341 Jan, [facility] [place] [facility] [address] [id number] [place] [address]- 0515 Jan, [facility] [place] [facility] [address] [id number] [place] [address]- 3327 Dec, [facility] [place] [facility] [address] [id number] [place] [address]- 4804 Dec, [facility] [place] [facility] [address] [id number] [place] [address]- 6535 Dec, [facility] [place] [facility] [address] [id number] [place] 1908 Dec, [facility] [place] [facility] [address] [id number] [place] [address]- 6346 Dec, [facility] [place] [facility] [address] [id number] [place] [address]- 3437 Dec, [facility] [place] [facility] [address] [id number] [place] [address]- 6259 Nov, [facility] [place] [facility] [address] [id number] [place] [address]- 3867 Nov, [facility] [place] [facility] [address] [id number] [place] [address]- 6822 Oct, [facility] [place] [facility] [address] [id number] [place] [address]- 6342 Oct, [facility] [place] [facility] [address] [id number] [place] [address]- 7303 Sep, [facility] [place] [facility] [address] [id number] [place] [address]- 7216 Sep, [facility] [place] [facility] [address] [id number] [place] [address]- 9766 Sep, [facility] [place] [facility] [address] [id number] [place] [address]- 3006 Sep, [facility] [place] [facility] [address] [id number] [place] [address]- 1576 July, [facility] [place] [facility] [address] [id number] [place] [address]- 4261 July, [facility] [place] [facility] [address] [id number] [place] [address]- 2477 July, [facility] [place] [facility] [address] [id number] [place] [address]- 1235 July, [facility] [address] [id number] [place] [address]- 4524 Feb, [facility] [address] [id number] [place] [address]- 7972 Feb, [facility] [address] [id number] [place] [address]- 3419 Jan, [facility] [address] [id number] [place] [address]- 4626 Jan, [facility] [address] [id number] [place] [address]- 5094 Jan, [facility] [address] [id number] [place] [address]- 8295 Jan, [facility] [address] [id number] [place] [address]- 9797 Nov, [facility] [address] [id number] [place] [address]- 1925 Aug, [facility] [address] [id number] [place] [address]- 4393 July, [facility] [address] [id number] [place] [address]- 3505 Jun, [facility] [address] [id number] [place] [address]- 5389 Apr, [facility] [address] [id number] [place] [address]- 8402 Mar, [facility] [address] [id number] [place] [address]- 0741 Mar, [facility] [address] [id number] [place] [address]- 1167 Jan, [facility] [address] [id number] [place] [address]- 3135 Jan, [facility] [place] [facility] [address] [id number] [place] [address]- 6218 Jan, [facility] [place] [facility] [address] [id number] [place] [address]- 1909 Jan, [facility] [place] [facility] [address] [id number] [place] [address]- 9915 Dec, [facility] [place] [facility] [address] [id number] [place] [address]- 9345 Dec, [facility] [place] [facility] [address] [id number] [place] [address]- 0759 Dec, [facility] [place] [facility] [address] [id number] [place] [address]- 4263 Dec, [facility] [place] [facility] [address] [id number] [place] [address]- 5088 Nov, [facility] [place] [facility] [address] [id number] [place] [address]- 9396 Oct, [facility] [place] [facility] [address] [id number] [place] [address]- 4544 July, [facility] [place] [facility] [address] [id number], [place] [address]- 0627 Mar, [facility] [place] [facility] [address] [id number], [place] [address]- 5156 Jan, [facility] [place] [facility] [address] [id number], [place] [address]- 1092 Jan, [facility] [place] [facility] [address] [id number] [place] [address]- 4849 Dec, [facility] [place] [facility] [address] [id number], [place] [address]- 8359 Dec, [facility] [place] [facility] [address] [id number] [place] [address]- 4848 Dec, [facility] [place] [facility] [address] [id number], [place] [address]- 0871 14 Nov, 2010 [facility] [address] [address]- 2924 July, [facility] [address] [place] [address]- 3010 14 Jun, 2010 [facility] [address] [place] [address]- 2094 May, [facility] [id number] [place] [address] 44412- 6035 14 Apr, 2010 [facility] [id number] [place] [address] 62073- 6250 Apr, [facility] [id number] [place] [address] 10780- 0339 Mar, [facility] [id number] [place] [address] 75725- 4846 Jan, [facility] [address] [address]- 5133 Dec, [facility] [address] [place] [address] 12768- 1463 Jun, [facility] [address] [address]- 1481 Jun, IMMUNIZATIONS No Known Immunizations SOCIAL HISTORY Never Assessed REASON FOR VISIT cough, head and chest congestion, runny nose. been sick for 3 weeks. [email or web address] PLAN OF CARE Activity Details Follow Up prn Reason: VITAL SIGNS Height 66 in 2017-02-21 Weight 167.8 lbs 2017-02-21 Temperature 98.7 degrees Fahrenheit 2017-02-21 Heart Rate 74 bpm 2017-02-21 Respiratory Rate 20 2017-02-21 BMI 27.08 kg/m2 2017-02-21 Blood pressure systolic 136 mmHg 2017-02-21 Blood pressure diastolic 78 mmHg 2017-02-21 MEDICATIONS Medication Instructions Dosage Frequency Start Date End Date Duration Status Proscar 5 mg Orally Once a day 1 tablet 24h Jan, July, 30 day(s) Active Azithromycin 250 MG Orally Once a day 2 tablets on the first day, then 1 tablet daily for 4 days 24h Feb, Feb, 5 day(s) Active Flomax 0.4 MG Orally Once a day 1 capsule 24h Active Benzonatate 200 MG Orally Three times a day 1 capsule 8h Feb, Feb, 7 days Active Hydrocodone-Acetaminophen 5-325 MG Orally 3 times a day 1 tablet 8h Jan 28 days Active RESULTS No Results PROCEDURES Procedure Date Ordered Result Body Site [facility] VISIT ESTABLISHED PATIENT Feb 21, 2017 INSTRUCTIONS MEDICATIONS ADMINISTERED No Known Medications MEDICAL (GENERAL) HISTORY Type Description Date Medical History prostatism Medical History chronic pain Medical History hypertension
--- OUTSIDE RECORDS SUMMARY | 2018-01-12 12:32 | XMS REPORT ---
Author Author RONAL CAMARGO [facility] Address [address] [place] [address] Care Team Providers Care Safety Investigator/Cause Analyst Name Role Phone RONAL CAMARGO Unavailable PROBLEMS Type Condition ICD9-CM Code HHA74-GH Code Onset Dates Condition Status SNOMED Code Problem Back pain M54.9 Active 205335743 Problem Other chronic pain G89.29 Active 29910951 Problem Pure hypercholesterolemia E78.00 Active 733926869 Problem Hypertension I10 Active 84002694 Problem Arthritis M19.90 Active 2805151 Problem [place] L84 Active 275981075 Problem Urge incontinence of urine N39.41 Active 52691416 ALLERGIES No Information SOCIAL HISTORY Never Assessed [...]
--- OUTSIDE RECORDS SUMMARY | 2018-01-12 12:32 | XMS REPORT ---
Author Author RONAL CAMARGO [facility] [employer] Address Unknown Phone Unavailable Care Team Providers Care Digital Sales Manager Name Role Phone RONAL CAMARGO CP Unavailable Allergies No Known Allergies Problems Problem Type Condition Code Onset Dates Condition Status Problem Need for prophylactic vaccination and inoculation, Influenza V04.81 Active Assessment Back pain M54.9 Active Problem Hypertension I10 Active Problem Back pain M54.9 Active Problem Arthritis M19.90 Active Problem Dermatophytosis of nail 110.1 Active Problem Corns and callosities 700 Active Problem Essential hypertension, benign 401.1 Active Problem Hallux valgus (acquired) 735.0 Active Medications Medication Code System Code Instructions Start Date End Date Status Dosage Hydrocodone-Acetaminophen [facility] [address]-41 5-325 MG Orally 3 times a day May 31, 2014 1 tablet as needed Results No Known Results Summary Purpose [employer] Submission
--- OUTSIDE RECORDS SUMMARY | 2018-01-12 12:32 | XMS REPORT ---
Author Author RONAL CAMARGO Organization [employer] Address Unknown Phone Unavailable Care Team Providers Care Information Strategist Name Role Phone RONAL CAMARGO CP Unavailable Allergies No Known Allergies Problems Problem Type Condition Code Onset Dates Condition Status Problem Essential hypertension, benign 401.1 Active Problem Hallux valgus (acquired) 735.0 Active Problem Back pain M54.9 Active Problem Need for prophylactic vaccination and inoculation, Influenza V04.81 Active Assessment Eye pain H57.10 Active Problem Dermatophytosis of nail 110.1 Active Problem Corns and callosities 700 Active Medications Medication Code System Code Instructions Start Date End Date Status Dosage Finasteride [facility] [address]-30 5 MG Orally Once a day 1 tablet Hydrocodone-Acetaminophen [facility] [address]-23 5-325 MG Orally 3 times a day May 31, 2014 1 tablet as needed Lisinopril-Hydrochlorothiazide [facility] 68235030756 20-25 MG TAKE ONE TABLET BY MOUTH DAILY Procedures Procedure Coding System Code Date Office Visit, Est Pt., Level 1 CPT-4 94178 Jan 02, 2015 Vital Signs Date/Time: Jan 02, 2015 Temperature 98.9 F Weight 180 lbs Height 66 in BMI 29.05 Index Blood Pressure Diastolic 68 mmHg Blood Pressure Systolic 98 mmHg Cardiac Monitoring Heart Rate 70 bpm Results No Known Results Summary Purpose [employer] Submission
--- OUTSIDE RECORDS SUMMARY | 2018-01-12 12:33 | XMS REPORT ---
Author Author RONAL CAMARGO Organization [facility] Address [address] [place] [address] Care Team Providers Care Home Manager Name Role Phone RONAL CAMARGO Unavailable PROBLEMS Type Condition ICD9-CM Code ZKS39-XN Code Onset Dates Condition Status SNOMED Code Problem Arthritis M19.90 Active 3127885 Problem Back pain M54.9 Active 264741819 Problem Prostatism N40.0 Active 54239859 Problem Other chronic pain G89.29 Active 39754639 Problem Urge incontinence of urine N39.41 Active 07725074 Problem Hypertension I10 Active 22699208 Problem Pure hypercholesterolemia E78.00 Active 747199989 Problem [place]d L84 Active [id number] ALLERGIES No Information ENCOUNTERS Encounter Location Date Diagnosis [facility] [id number] [place] [address] 25725- 1667 May, Other chronic pain G89.29 [facility] [id number] [place] [address] 72949- 2929 15 Apr, 2017 Other chronic pain G89.29 [facility] [id number] [place] [address] 47621- 1682 Mar, Other chronic pain G89.29 [facility] [id number] [place] [address] 88660- 9651 Feb, Other chronic pain G89.29 [facility] [id number] [place] [address] 85717 -3177 Feb, Acute upper respiratory infection, unspecified J06.9 and Other viral agents as the cause of diseases classified elsewhere B97.89 [facility] [id number] [place] [address] 33366- 6977 Jan, [facility] [id number] [place] [address] 83529- 0910 Jan, Back pain M54.9 and Prostatism N40.0 [facility] [id number] [place] [address] 72313- 2388 Jan, Other chronic pain G89.29 [facility] [id number] [place] [address] 10771- 3689 Dec, [facility] [id number] [place] [address] 88244- 4887 Dec, Other chronic pain G89.29 [facility] [id number] [place] [address] 06338- 6353 Nov, Other chronic pain G89.29 [facility] [id number] [place] [address] 10313- 9347 Nov, Encounter for immunization Z23 [facility] [id number] [place] [address] 07063- 4604 Nov, Other chronic pain G89.29 [facility] [id number] [place] [address] 06187- 4106 Oct, Other chronic pain G89.29 [facility] [id number] [place] [address] 22796- 8517 Oct, Back pain M54.9 [facility] [id number] [place] [address] 65195- 3292 Sep, Back pain M54.9 [facility] [id number] [place] [address] 49975- 5018 Aug, [facility] [id number] [place] [address] 02610- 3972 Aug, Back pain M54.9 [facility] [id number] [place] [address] 21456- 1106 July, Back pain M54.9 [facility] [id number] [place] [address] 17450- 1644 24 Jun, 2016 Weight loss R63.4 and Postural hypotension I95.1 [facility] [address] 21342- 9175 14 Jun, 2016 Back pain M54.9 [facility] [id number] [place] [address] 82737- 9758 May, Back pain M54.9 [facility] [address] 70167- 3214 Apr, Back pain M54.9 [facility] [address] 99929- 3666 Apr, Pure hypercholesterolemia E78.00 [facility] [address] 94050- 0453 Apr, Hypertension I10 ; Back pain M54.9 ; Urge incontinence of urine N39.41 and [place]ne[place]d L84 [facility] [id number] [place] [address] 60900- 2022 Mar, [facility] [address] 23229- 2740 Mar, Other chronic pain G89.29 [facility] [address] 64595- 3590 Feb, [facility] [id number] [place] [address] 23755- 2518 Jan, [facility] [id number] [place] [address] 76254- 1134 28 Dec, 2015 [facility] [address] 54602- 1060 28 Nov, 2015 [facility] [id number] [place] [address] 55907- 7481 05 Oct, 2015 [facility] [address] 97290- 8669 Sep, Back pain M54.9 [facility] [id number] [place] [address] 00879- 1376 17 Aug, 2015 Back pain M54.9 and Hypertension I10 [facility] [id number] [place] [address] 73221 -1429 13 Aug, 2015 Low back pain M54.5 and Other chronic pain G89.29 [facility] [address] 86109- 9420 10 Aug, 2015 Back pain M54.9 [facility] [id number] [place] [address] 85987- 6516 July, Back pain M54.9 [facility] [id number] [place] [address] 60290- 6977 06 Jun, 2015 Back pain M54.9 [facility] [address] 73511- 6194 09 May, 2015 Back pain M54.9 [facility] [id number] [place] [address] 74775- 0953 04 Apr, 2015 Back pain M54.9 [facility] [id number] [place] [address] 74510- 7772 Mar, Back pain M54.9 [facility] [id number] [place] [address] 06345- 9190 17 Feb, 2015 Prostatitis N41.9 ; Arthritis M19.90 and Hypertension I10 [facility] [id number] [place] [address] 36007- 6437 15 Feb, 2015 [facility] [address] 98072- 0612 18 Jan, 2015 [facility] [id number] [place] [address] 18918- 8111 26 Dec, 2014 Encounter for immunization Z23 [facility] [address] 00031- 9795 Dec, [facility] [id number] [place] [address] 457226- 4281 Dec, Eye pain H57.10 [facility] [id number] [place] [address] 835083- 6407 Dec, Contusion of left leg S80.12XA and Right shoulder injury S49.91XA [place] [address] 782843- 2402 Dec, Cellulitis L03.90 ; Back pain M54.9 ; Urinary incontinence R32 and Need for ivqroklawa-qsqhuxx-xdyaroikf (Tdap) vaccine Z23 [place] [address] 74623- 7966 Nov, Need for prophylactic vaccination with tetanus-diphtheria ( TD) V06.5 [place] [address] 728417- 1996 Nov, [facility] [id number] [place] [address] 70039- 0096 Oct, [place] [id number] [place] [address] 16240- 0420 Sep, [facility] [id number] [place] [address] 19171- 7871 Sep, [facility] [id number] [place] [address] 28786- 8166 Aug, [facility] [id number] [place] [address] 00218- 2115 July, [facility] [id number] [place] [address] 03812- 5936 July, [facility] [id number] [place] [address] 58272- 5872 Jun, [facility] [id number] [place] [address] 679383- 3571 Jun, [facility] [place] [facility] [address] [id number] [place] [address]- 9948 May, [facility] [place] [facility] [address] [id number] [place] [address]- 1766 May, [facility] [place] [facility] [address] [id number] [place] [address]- 7138 Apr, [facility] [place] [facility] [address] [id number] [place] [address]- 0806 Apr, [facility] [place] [facility] [address] [id number] [place] [address]- 9346 Mar, [facility] [place] [facility] [address] [id number] [place] [address]- 2589 Mar, [facility] [place] [facility] [address] [id number] [place] [address]- 6553 Mar, [facility] [place] [facility] [address] [id number] [place] [address]- 5337 Mar, [facility] [place] [facility] [address] [id number] [place] [address]- 5855 Mar, [facility] [place] [facility] [address] [id number] [place] [address]- 9726 Mar, [facility] [place] [facility] [address] [id number] [place] [address]- 5704 Mar, [facility] [place] [facility] [address] [id number] [place] [address]- 7229 Mar, [facility] [place] [facility] [address] [id number] [place] [address]- 9664 Mar, [facility] [place] [facility] [address] [id number] [place] [address]- 5224 Mar, [facility] [place] [facility] [address] [id number] [place] [address]- 1420 Mar, [facility] [place] [facility] [address] [id number] [address]- 6757 Mar, [facility] [place] [facility] [address] [id number] [place] [address]- 7095 Mar, [facility] [place] [facility] [address] [id number] [place] [address]- 7962 Mar, [facility] [place] [facility] [address] [facility] [id number] [place] [address]- 1132 Feb, [facility] [place] [facility] [address] [id number] [place] [address]- 7531 Feb, [facility] [place] [facility] [address] [id number] [place] [address]- 5114 Feb, [facility] [place] [facility] [address] [id number] [place] [address]- 0922 Feb, [facility] [place] [facility] [address] [facility] [id number] [place] [address]- 4974 Feb, [facility] [place] [facility] [address] [id number] [place] [address]- 3267 Feb, [facility] [place] [facility] [address] [facility] [id number] [place] [address]- 6246 Jan, [facility] [place] [facility] [address] [facility] [id number] [place] [address]- 8543 Jan, [facility] [place] [facility] [address] [id number] [place] [address]- 1715 Dec, [facility] [place] [facility] [address] [id number] [place] [address]- 2235 Dec, [facility] [place] [facility] [address] [id number] [place] [address]- 2891 Dec, [facility] [place] [facility] [address] [facility] [id number] [place] [address]- 0705 Dec, [facility] [place] [facility] [address] [facility] [id number] [place] [address]- 5855 Dec, [facility] [place] [facility] [address] [id number] [place] [address]- 2546 Dec, [facility] [place] [facility] [address] [id number] [place] [address]- 4459 Nov, [facility] [place] [facility] [address] [id number] [place] [address]- 2546 Nov, [facility] [place] [facility] [address] [id number] [place] [address]- 6596 Oct, [facility] [place] [facility] [address] [id number] [place] [address]- 8639 Oct, [facility] [place] [facility] [address] [id number] [place] [address]- 0543 Sep, [facility] [place] [facility] [address] [id number] [place] [address]- 4469 Sep, [facility] [place] [facility] [address] [id number] [place] [address]- 8090 Sep, [facility] [place] [facility] [address] [id number] [place] [address]- 3549 Sep, [facility] [place] [facility] [address] [id number] [place] [address]- 5676 July, [facility] [place] [facility] [address] [id number] [place] [address]- 5774 July, [facility] [place] [facility] [address] [id number] [place] [address]- 6691 July, [facility] [place] [facility] [address] [id number] [place] [address]- 7602 July, [facility] [place] [facility] [address] [id number] [place] [address]- 6776 Feb, [facility] [place] [facility] [address] [id number] [place] [address]- 2246 Feb, [facility] [place] [facility] [address] [id number] [place] [address]- 3367 14 Jan, 2013 [facility] [place] [facility] [address] [id number] [place] [address]- 8663 14 Jan, 2013 [facility] [place] [facility] [address] [id number] [place] [address]- 5402 11 Jan, 2013 [facility] [place] [facility] [address] [id number] [place] [address]- 5121 Jan, [facility] [place] [facility] [address] [id number] [place] [address]- 1219 30 Nov, 2012 [facility] [place] [facility] [address] [id number] [place] [address]- 2238 Aug, [facility] [place] [facility] [address] [id number] [place] [address]- 8068 July, [facility] [place] [facility] [address] [id number] [place] [address]- 8298 Jun, [facility] [place] [facility] [address] [id number] [place] [address]- 8734 Apr, [facility] [place] [facility] [address] [id number] [place] [address]- 9321 Mar, [facility] [place] [facility] [address] [id number] [place] [address]- 9162 Mar, [facility] [place] [facility] [address] [id number] [place] [address]- 5744 Jan, [facility] [place] [facility] [address] [id number] [place] [address]- 9167 Jan, [facility] [place] [facility] [address] [id number] [place] [address]- 3697 Jan, [facility] [place] [facility] [address] [id number] [place] [address]- 7868 02 Jan, 2012 [facility] [place] [facility] [address] [id number] [place] [address]- 7604 18 Dec, 2011 [facility] [place] [facility] [address] [id number] [place] [address]- 3548 18 Dec, 2011 [facility] [place] [facility] [address] [id number] [place] [address]- 4373 Dec, [facility] [place] [facility] [address] [id number] [place] [address]- 2484 Dec, [facility] [place] [facility] [address] [id number] [place] [address]- 7610 Nov, [facility] [place] [facility] [address] [id number] [place] [address] 2548 Oct, [facility] [place] [facility] [address] [id number] [place] [address]- 9819 July, [facility] [place] [facility] [address] [id number] [place] [address] 2546 Mar, [facility] [place] [facility] [address] [id number] [place] [address]- 2798 Jan, [facility] [place] [facility] [address] [id number] [place] [address]- 2781 Jan, [facility] [place] [facility] [address] [id number] [place] [address]- 3469 Dec, [facility] [place] [facility] [address] [id number] [place] [address]- 5654 Dec, [facility] [place] [facility] [address] [id number] [place] [address]- 4999 Dec, [facility] [place] [facility] [address] [id number] [place] [address]- 8696 14 Nov, 2010 [facility] [place] [facility] [address] [id number] [place] [address]- 5746 July, [facility] [place] [facility] [address] [id number] [place] [address]- 4572 Jun, [facility] [place] [facility] [address] [id number] [place] [address]- 9050 May, [facility] [address] [id number] [address]- 3073 14 Apr, 2010 [facility] [address] [id number] [address]- 7293 10 Apr, 2010 [facility] [address] [address]- 9891 Mar, [facility] [address] [address]- 2398 Jan, [facility] [id number] [address]- 0953 Dec, [facility] [id number] [address]- 9008 17 Jun, 2009 [facility] [address] [id number] [address]- 4932 Jun, IMMUNIZATIONS No Known Immunizations SOCIAL HISTORY Never Assessed REASON FOR VISIT Eye Exam PLAN OF CARE VITAL SIGNS MEDICATIONS Unknown Medications RESULTS No Results PROCEDURES No Known procedures INSTRUCTIONS MEDICATIONS ADMINISTERED No Known Medications MEDICAL (GENERAL) HISTORY Type Description Date Medical History prostatism Medical History chronic pain Medical History hypertension
--- OUTSIDE RECORDS SUMMARY | 2018-01-12 12:33 | XMS REPORT ---
Author Author RONAL CAMARGO Organization [facility] [place] Address [address] [place] [address] Care Team Providers Care Cigar Head Pegger Name Role Phone RONAL CAMARGO Unavailable PROBLEMS Type Condition ICD9-CM Code UHK98-OX Code Onset Dates Condition Status SNOMED Code Problem Arthritis M19.90 Active 5284947 Problem Back pain M54.9 Active 369292881 Problem Prostatism N40.0 Active 61941006 Problem Other chronic pain G89.29 Active 92702848 Problem Urge incontinence of urine N39.41 Active 43180183 Problem Hypertension I10 Active 22232819 Problem Pure hypercholesterolemia E78.00 Active 638339399 Problem Henderson L84 Active [id number] ALLERGIES No Information ENCOUNTERS Encounter Location Date Diagnosis [facility] [place] [id number] [place] [address] 49441- 9626 Jun, Other chronic pain G89.29 [facility] [place] [address] 05113- 0199 May, Other chronic pain G89.29 [facility] [place] [address] 70305- 9928 15 Apr, 2017 Other chronic pain G89.29 [facility] [place] [id number] [place] [address] 31533- 5241 Mar, Other chronic pain G89.29 [facility] [place] [address] 79151- 8221 Feb, Other chronic pain G89.29 [facility] [id number] [place] [address] 78285 -0379 Feb, Acute upper respiratory infection, unspecified J06.9 and Other viral agents as the cause of diseases classified elsewhere B97.89 [place] [id number] [address] Jan, [facility] [place] [id number] [place] [address] 67676- 4443 Jan, Back pain M54.9 and Prostatism N40.0 [facility] [place] [id number] [place] [address] 40231- 6043 Jan, Other chronic pain G89.29 [facility] [place] [id number] [place] [address] 31346- 0369 Dec, [facility] [place] [id number] [place] [address] 42328- 6253 Dec, Other chronic pain G89.29 [facility] [place] [id number] [place] [address] 25368- 0724 Nov, Other chronic pain G89.29 [facility] [place] [id number] [place] [address] 03027- 6519 Nov, Encounter for immunization Z23 [facility] [place] [id number] [place] [address] 94367- 7824 Nov, Other chronic pain G89.29 [facility] [place] [id number] [place] [address] 05059- 3177 Oct, Other chronic pain G89.29 [facility] [place] [id number] [place] [address] 95031- 3808 Oct, Back pain M54.9 [facility] [place] [id number] [place] [address] 96665- 2652 Sep, Back pain M54.9 [facility] [place] [id number] [place] [address] 05487- 8876 Aug, [facility] [place] [id number] [place] [address] 84752- 7043 Aug, Back pain M54.9 [facility] [place] [address] 95974- 1937 July, Back pain M54.9 [facility] [place] [address] 16995- 8101 Jun, Weight loss R63.4 and Postural hypotension I95.1 [facility] [place] [address] 25243- 5537 14 Jun, 2016 Back pain M54.9 [facility] [place] [address] 54440- 5095 May, Back pain M54.9 [facility] [place] [address] 62320- 0477 Apr, Back pain M54.9 [facility] [place] [address] 44101- 8999 Apr, Pure hypercholesterolemia E78.00 [facility] [place] [address] 67586- 5226 Apr, Hypertension I10 ; Back pain M54.9 ; Urge incontinence of urine N39.41 and Henderson L84 [facility] [place] [address] 69075- 8016 Mar, [facility] [place] [address] 85009- 2450 Mar, Other chronic pain G89.29 [facility] [place] [address] 12476- 7839 Feb, [facility] [place] [address] 72090- 9808 Jan, [facility] [place] [address] 98900- 8317 28 Dec, 2015 [facility] [place] [address] 98498- 9732 28 Nov, 2015 [facility] [place] [address] 66637- 5362 Oct, [facility] [place] [id number] [place] [address] 95175- 2498 Sep, Back pain M54.9 [facility] [place] [id number] [place] [address] 48969- 2910 17 Aug, 2015 Back pain M54.9 and Hypertension I10 [facility] [id number] [place] [address] 07284 -5645 13 Aug, 2015 Low back pain M54.5 and Other chronic pain G89.29 [facility] [place] [id number] [place] [address] 85248- 8304 Aug, Back pain M54.9 [facility] [place] [id number] [place] [address] 38760- 1605 July, Back pain M54.9 [facility] [place] [address] 56881- 8272 Jun, Back pain M54.9 [facility] [place] [id number] [place] [address] 08425- 2562 May, Back pain M54.9 [facility] [place] [id number] [place] [address] 20766- 4939 04 Apr, 2015 Back pain M54.9 [facility] [place] [id number] [place] [address] 29084- 9424 Mar, Back pain M54.9 [facility] [place] [id number] [place] [address] 30331- 0827 Feb, Prostatitis N41.9 ; Arthritis M19.90 and Hypertension I10 [facility] [place] [id number] [place] [address] 59559- 2549 15 Feb, 2015 [facility] [place] [id number] [place] [address] 55113- 4222 Jan, [facility] [place] [address] 62703- 0392 Dec, Encounter for immunization Z23 [facility] [place] [id number] [place] [address] 58124- 6014 Dec, [facility] [place] [id number] [place] [address] 65979- 6565 Dec, Eye pain H57.10 [facility] [place] [address] 05378- 3675 Dec, Contusion of left leg S80.12XA and Right shoulder injury S49.[address] [place] [address] 06097- 5850 Dec, Cellulitis L03.90 ; Back pain M54.9 ; Urinary incontinence R32 and Need for kryevpobml-cmdfura-woplxxxrc (Tdap) vaccine Z23 [place] [id number] [place] [address] 75288- 3459 Nov, Need for prophylactic vaccination with tetanus-diphtheria ( TD) V06.5 [place] [id number] [place] [address] 28056- 4822 Nov, [facility] [place] [id number] [place] [address] 36276- 1371 Oct, [facility] [place] [id number] [place] [address] 58893- 6374 Sep, [facility] [place] [id number] [place] [address] 30114- 4567 Sep, [facility] [place] [id number] [place] [address] 39586- 7740 Aug, [facility] [place] [id number] [place] [address] 897920- 5167 July, [facility] [place] [id number] [place] [address] 79765- 3597 July, [facility] [place] [id number] [place] [address] 30128- 0596 14 Jun, 2014 [facility] [place] [facility] [address] [id number] [place] [address]- 3740 Jun, [facility] [place] [facility] [address] [id number] [place] [address]- 9553 May, [facility] [place] [facility] [address] [id number] [place] [address]- 3907 May, [facility] [place] [facility] [address] [id number] [place] [address]- 0617 Apr, [facility] [place] [facility] [address] [id number] [place] [address]- 4758 Apr, [facility] [place] [facility] [address] [id number] [place] [address]- 9640 Mar, [facility] [place] [facility] [address] [id number] [place] [address]- 7080 Mar, [facility] [place] [facility] [address] [id number] [place] [address]- 0286 Mar, [facility] [place] [facility] [address] [id number] [place] [address]- 4420 Mar, [facility] [place] [facility] [address] [id number] [place] [address]- 6279 Mar, [facility] [place] [facility] [address] [id number] [place] [address]- 9114 Mar, [facility] [place] [facility] [address] [id number] [place] [address]- 8756 Mar, [facility] [place] [facility] [address] [id number] [place] [address]- 3774 Mar, [facility] [place] [facility] [address] [id number] [place] [address]- 8334 Mar, [facility] [place] [facility] [address] [id number] [place] [address]- 6749 Mar, [facility] [place] [facility] [address] [id number] [place] [address]- 7866 Mar, [facility] [address] [id number] [place] [address]- 9853 Mar, [facility] [place] [facility] [address] [id number] [place] [address]- 8907 Mar, [facility] [address] [id number] [place] [address]- 6272 Mar, [facility] [place] [facility] [address] [id number] [place] [address]- 5899 Feb, [facility] [place] [facility] [address] [id number] [place] [address]- 5037 Feb, [facility] [place] [facility] [address] [id number] [place] [address]- 1029 Feb, [facility] [place] [facility] [address] [id number] [place] [address]- 2494 Feb, [facility] [place] [facility] [address] [id number] [place] [address]- 1980 Feb, [facility] [place] [facility] [address] [id number] [place] [address]- 5101 Feb, [facility] [place] [facility] [address] [id number] [place] [address]- 2024 Jan, [facility] [place] [facility] [address] [id number] [place] [address]- 0897 Jan, [facility] [place] [facility] [address] [id number] [place] [address]- 7315 Dec, [facility] [place] [facility] [address] [id number] [place] [address]- 4088 Dec, [facility] [place] [facility] [address] [id number] [place] [address]- 4640 Dec, [facility] [place] [facility] [address] [id number] [place] [address]- 9851 Dec, [facility] [place] [facility] [address] [id number] [place] [address]- 9833 Dec, [facility] [place] [facility] [address] [id number] [place] [address]- 5069 Dec, [facility] [place] [facility] [address] [id number] [place] [address]- 4750 Nov, [facility] [place] [facility] [address] [id number] [place] [address]- 7809 Nov, [facility] [place] [facility] [address] [id number] [place] [address]- 2582 Oct, [facility] [place] [facility] [address] [id number] [place] [address]- 2642 Oct, [facility] [place] [facility] [address] [id number] [place] [address]- 0438 Sep, [facility] [place] [facility] [address] [id number] [place] [address]- 7267 Sep, [facility] [place] [facility] [address] [id number] [place] [address]- 4748 Sep, [facility] [place] [facility] [address] [id number] [place] [address]- 3371 Sep, [facility] [place] [facility] [address] [id number] [place] [address]- 9381 July, [facility] [place] [facility] [address] [id number] [place] [address]- 6871 July, [facility] [place] [facility] [address] [id number] [place] [address]- 0563 July, [facility] [place] [facility] [address] [id number] [place] [address]- 3739 July, [facility] [place] [facility] [address] [id number] [place] [address]- 8642 Feb, [facility] [place] [facility] [address] [id number] [address]- 9556 Feb, [facility] [address] [id number] [place] [address]- 5413 Jan, [facility] [place] [facility] [address] [id number], [place] [address]- 9554 Jan, [facility] [place] [facility] [address] [facility] [id number] [place] [address]- 2909 Jan, [facility] [place] [facility] [address] [id number] [place] [address]- 8275 Jan, [facility] [place] [facility] [address] [id number] [place] [address]- 1498 Nov, [facility] [place] [facility] [address] [id number] [place] [address]- 0311 Aug, [facility] [address] [facility] [id number] [place] [address]- 9407 July, [facility] [place] [facility] [address] [id number] [place] [address]- 3402 Jun, [facility] [address] [id number] [place] [address]- 1722 Apr, [facility] [place] [facility] [address] [facility] [id number] [place] [address]- 3994 Mar, [facility] [place] [facility] [address] [id number], [place] [address]- 5068 Mar, [facility] [place] [facility] [address] [id number], [place] [address]- 8231 Jan, [facility] [place] [facility] [address] [id number] [place] [address]- 0381 Jan, [facility] [place] [facility] [address] [facility] [id number] [place] [address]- 2545 Jan, [facility] [place] [facility] [address] [facility] [id number] [place] [address]- 5357 Jan, [facility] [place] [facility] [address] [id number] [place] [address]- 4600 Dec, [facility] [place] [facility] [address] [id number] [place] [address]- 6858 Dec, [facility] [place] [facility] [address] [id number] [place] [address]- 2546 Dec, [facility] [place] [facility] [address] [id number] [place] [address]- 7922 Dec, [facility] [place] [facility] [address] [id number] [place] [address]- 0093 Nov, [facility] [place] [facility] [address] [id number] [place] [address]- 9326 Oct, [facility] [place] [facility] [address] [id number] [place] [address]- 9875 July, [facility] [place] [facility] [address] [id number] [place] [address]- 3554 Mar, [facility] [place] [facility] [address] [id number] [place] [address]- 5181 Jan, [facility] [place] [facility] [address] [id number] [place] [address]- 2035 Jan, [facility] [place] [facility] [address] [id number] [place] [address]- 7720 Dec, [facility] [place] [facility] [address] [id number] [place] [address]- 0579 Dec, [facility] [place] [facility] [address] [id number] [place] [address]- 9274 Dec, [facility] [place] [facility] [address] [id number] [place] [address]- 6398 Nov, [facility] [place] [facility] [address] [id number] [place] [address] 2546 July, [facility] [place] [facility] [address] [id number] [place] [address]- 5881 14 Jun, 2010 [facility] [place] [id number] [address]- 2546 14 May, 2010 [facility] [place] [address] [address]- 2546 14 Apr, 2010 [facility] [place] [id number] [address]- 2546 10 Apr, 2010 [facility] [place] [address] [address]- 2546 Mar, [facility] [place] [address] [address]- 2546 Jan, [facility] [place] [address] [address]- 2546 Dec, [facility] [place] [address] [address]- 2546 Jun, [facility] [place] [address] [id number] [address]- 2546 Jun, IMMUNIZATIONS No Known Immunizations SOCIAL HISTORY Never Assessed REASON FOR VISIT Hydrocodone- 01/20 PLAN OF CARE VITAL SIGNS MEDICATIONS Medication [...]
--- OUTSIDE RECORDS SUMMARY | 2018-01-12 12:33 | XMS REPORT ---
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 Role Phone RONAL CAMARGO Unavailable PROBLEMS Type Condition ICD9-CM Code [id number] Code Onset Dates Condition Status SNOMED Code Problem Arthritis M19.90 Active 0423207 Problem Back pain M54.9 Active 563312723 Problem Prostatism N40.0 Active 77177975 Problem Other chronic pain G89.29 Active 73281696 Problem Urge incontinence of urine N39.41 Active 19621321 Problem Hypertension I10 Active 04928115 Problem Pure hypercholesterolemia E78.00 Active 966374292 Problem Pembroke L84 Active 655123724 ALLERGIES No Information ENCOUNTERS Encounter Location Date Diagnosis [facility] [id number] [place] [address] 55846- 2728 July, [facility] [address] 67206- 4715 Jun, Other chronic pain G89.29 [facility] [id number] [place] [address] 11033- 1006 May, Other chronic pain G89.29 [facility] [id number] [place] [address] 61030- 9576 Apr, Other chronic pain G89.29 [facility] [id number] [place] [address] 03962- 3002 Mar, Other chronic pain G89.29 [facility] [address] 40286- 6215 Feb, Other chronic pain G89.29 [facility] [address] 77193 -1466 Feb, Acute upper respiratory infection, unspecified J06.9 and Other viral agents as the cause of diseases classified elsewhere B97.89 [facility] [id number] [place] [address] 57764- 1943 Jan, [facility] [id number] [place] [address] 11510- 9007 Jan, Back pain M54.9 and Prostatism N40.0 [facility] [id number] [place] [address] 60062- 4657 Jan, Other chronic pain G89.29 [facility] [id number] [place] [address] 07858- 4899 Dec, [facility] [id number] [place] [address] 64646- 1859 Dec, Other chronic pain G89.29 [facility] [address] 93041- 5511 Nov, Other chronic pain G89.29 [facility] [id number] [place] [address] 02012- 3428 Nov, Encounter for immunization Z23 [facility] [id number] [place] [address] 84856- 8427 Nov, Other chronic pain G89.29 [facility] [id number] [place] [address] 01059- 6016 Oct, Other chronic pain G89.29 [facility] [id number] [place] [address] 09891- 4946 Oct, Back pain M54.9 [facility] [id number] [place] [address] 02815- 8323 Sep, Back pain M54.9 [facility] [id number] [place] [address] 96259- 5250 Aug, [facility] [address] 07416- 9282 Aug, Back pain M54.9 [facility] [address] 06650- 0433 July, Back pain M54.9 [facility] [address] 84574- 1040 24 Jun, 2016 Weight loss R63.4 and Postural hypotension I95.1 [facility] [address] 90632- 2755 14 Jun, 2016 Back pain M54.9 [facility] [address] 71348- 0951 May, Back pain M54.9 [facility] [address] 51825- 5102 17 Apr, 2016 Back pain M54.9 [facility] [address] 95751- 7871 17 Apr, 2016 Pure hypercholesterolemia E78.00 [facility] [address] 01922- 4603 06 Apr, 2016 Hypertension I10 ; Back pain M54.9 ; Urge incontinence of urine N39.41 and Pembroke L84 [facility] [address] 83219- 1363 Mar, [facility] [address] 01910- 4589 Mar, Other chronic pain G89.29 [facility] [address] 73857- 8223 Feb, [facility] [address] 08886- 4281 Jan, [facility] [address] 40048- 8660 28 Dec, 2015 [facility] [address] 97073- 2097 28 Nov, 2015 [facility] [id number] [place] [address] 33281- 6211 05 Oct, 2015 [facility] [id number] [place] [address] 79212- 4894 Sep, Back pain M54.9 [facility] [id number] [place] [address] 62857- 8249 17 Aug, 2015 Back pain M54.9 and Hypertension I10 [facility] [address] [facility] [id number] [place] [address] 28549 -1146 13 Aug, 2015 Low back pain M54.5 and Other chronic pain G89.29 [facility] [id number] [place] [address] 37921- 9459 10 Aug, 2015 Back pain M54.9 [facility] [id number] [place] [address] 84457- 2729 July, Back pain M54.9 [facility] [id number] [place] [address] 66121- 8800 Jun, Back pain M54.9 [facility] [id number] [place] [address] 90286- 0625 May, Back pain M54.9 [facility] [id number] [place] [address] 70519- 3743 Apr, Back pain M54.9 [facility] [id number] [place] [address] 31235- 5505 Mar, Back pain M54.9 [facility] [id number] [place] [address] 53386- 2572 Feb, Prostatitis N41.9 ; Arthritis M19.90 and Hypertension I10 [facility] [id number] [place] [address] 91717- 2671 15 Feb, 2015 [facility] [address] 28299- 8480 Jan, [facility] [id number] [place] [address] 39065- 5171 Dec, Encounter for immunization Z23 [facility] [id number] [place] [address] 250670- 7598 Dec, [facility] [id number] [place] [address] 56035- 9616 Dec, Eye pain H57.10 [facility] [address] 29021- 2825 Dec, Contusion of left leg S80.12XA and Right shoulder injury S49.91XA [facility] [id number] [place] [address] 10513- 4944 Dec, Cellulitis L03.90 ; Back pain M54.9 ; Urinary incontinence R32 and Need for angragcspa-uatkkrp-dxrrnzeha (Tdap) vaccine Z23 [facility] [id number] [place] [address] 92006- 3241 Nov, Need for prophylactic vaccination with tetanus-diphtheria ( TD) V06.5 [facility] [id number] [place] [address] 88557- 5301 Nov, [facility] [id number] [place] [address] 20330- 1015 Oct, [facility] [id number] [place] [address] 08638- 6518 Sep, [facility] [id number] [place] [address] 63091- 3438 Sep, [facility] [id number] [place] [address] 834765- 6313 Aug, [facility] [id number] [place] [address] 66305- 4353 July, [facility] [id number] [place] [address] 35337- 6919 July, [facility] [place] [facility] [address] [id number] [place] [address]- 5134 Jun, [facility] [place] [facility] [address] [id number] [place] [address]- 0366 Jun, [facility] [place] [facility] [address] [id number] [place] [address]- 0421 May, [facility] [place] [facility] [address] [id number] [place] [address]- 5301 May, [facility] [place] [facility] [address] [id number] [place] [address]- 3269 Apr, [facility] [place] [facility] [address] [id number] [place] [address]- 1129 Apr, [facility] [place] [facility] [address] [id number] [place] [address]- 1518 Mar, [facility] [place] [facility] [address] [id number] [place] [address]- 3024 Mar, [facility] [place] [facility] [address] [id number] [place] [address]- 0354 Mar, [facility] [place] [facility] [address] [id number] [place] [address]- 3567 Mar, [facility] [place] [facility] [address] [id number] [place] [address]- 6823 Mar, [facility] [place] [facility] [address] [id number] [place] [address]- 7419 Mar, [facility] [place] [facility] [address] [id number] [place] [address]- 8604 Mar, [facility] [place] [facility] [address] [id number] [place] [address]- 9137 Mar, [facility] [place] [facility] [address] [id number] [place] [address]- 3310 Mar, [facility] [place] [facility] [address] [id number] [place] [address]- 7355 Mar, [facility] [address] [id number] [place] [address]- 2219 Mar, [facility] [place] [facility] [address] [id number] [place] [address]- 0809 Mar, [facility] [address] [id number] [place] [address]- 1338 Mar, [facility] [place] [facility] [address] [id number] [place] [address]- 1808 Mar, [facility] [address] [id number] [place] [address]- 4016 Feb, [facility] [place] [facility] [address] [id number] [place] [address]- 0719 Feb, [facility] [address] [id number] [place] [address]- 8331 Feb, [facility] [place] [facility] [address] [id number] [place] [address]- 5098 Feb, [facility] [place] [facility] [address] [id number] [place] [address]- 5732 Feb, [facility] [place] [facility] [address] [id number] [place] [address]- 8688 Feb, [facility] [place] [facility] [address] [id number] [place] [address]- 3729 Jan, [facility] [place] [facility] [address] [id number] [place] [address]- 7866 Jan, [facility] [place] [facility] [address] [id number] [place] [address]- 0729 Dec, [facility] [place] [facility] [address] [id number] [place] 1692 Dec, [facility] [place] [facility] [address] [id number] [place] [address]- 1817 Dec, [facility] [place] [facility] [address] [id number] [place] [address]- 7839 Dec, [facility] [place] [facility] [address] [id number] [place] [address]- 3126 Dec, [facility] [place] [facility] [address] [id number] [place] [address]- 7927 Dec, [facility] [place] [facility] [address] [id number] [place] [address]- 8027 Nov, [facility] [place] [facility] [address] [id number] [place] [address]- 4591 Nov, [facility] [place] [facility] [address] [id number] [place] [address]- 7220 Oct, [facility] [place] [facility] [address] [id number] [place] [address]- 1339 Oct, [facility] [place] [facility] [address] [id number] [place] [address]- 9484 Sep, [facility] [place] [facility] [address] [id number] [place] [address]- 0761 Sep, [facility] [place] [facility] [address] [id number] [place] [address]- 8121 Sep, [facility] [place] [facility] [address] [id number] [place] [address]- 5603 Sep, [facility] [place] [facility] [address] [id number] [place] [address]- 7340 July, [facility] [place] [facility] [address] [id number] [place] [address]- 6983 July, [facility] [place] [facility] [address] [id number] [place] [address]- 3775 July, [facility] [place] [facility] [address] [id number] [place] [address]- 3531 July, [facility] [place] [facility] [address] [id number] [address]- 3273 Feb, [facility] [address] [id number] [place] [address]- 4041 Feb, [facility] [place] [facility] [address] [id number] [place] [address]- 1293 Jan, [facility] [place] [facility] [address] [facility] [id number] [place] [address]- 8990 Jan, [facility] [place] [facility] [address] [id number] [place] [address]- 3749 Jan, [facility] [place] [facility] [address] [id number] [place] [address]- 6306 Jan, [facility] [place] [facility] [address] [id number] [place] [address]- 8462 Nov, [facility] [address] [id number] [place] [address]- 0224 Aug, [facility] [place] [facility] [address] [id number] [place] [address]- 7025 July, [facility] [address] [id number] [place] [address]- 3332 Jun, [facility] [place] [facility] [address] [facility] [id number] [place] [address]- 4928 Apr, [facility] [place] [facility] [address] [id number] [place] [address]- 5511 Mar, [facility] [place] [facility] [address] [id number] [place] [address]- 4491 Mar, [facility] [place] [facility] [address] [id number] [place] [address]- 4148 Jan, [facility] [place] [facility] [address] [id number] [place] [address]- 8161 Jan, [facility] [place] [facility] [address] [facility] [id number] [place] [address]- 6871 Jan, [facility] [place] [facility] [address] [id number] [place] [address] 254 Jan, [facility] [place] [facility] [address] [id number] [place] [address]- 5662 Dec, [facility] [place] [facility] [address] [id number] [place] [address]- 2546 Dec, [facility] [place] [facility] [address] [id number] [place] [address]- 4211 Dec, [facility] [place] [facility] [address] [id number] [place] [address]- 4833 Dec, [facility] [place] [facility] [address] [id number] [place] [address]- 8568 Nov, [facility] [place] [facility] [address] [id number] [place] [address]- 0234 Oct, [facility] [place] [facility] [address] [id number] [place] [address]- 1223 July, [facility] [place] [facility] [address] [id number] [place] [address]- 0787 Mar, [facility] [place] [facility] [address] [id number] [place] [address]- 1846 Jan, [facility] [place] [facility] [address] [id number] [place] [address]- 9671 Jan, [facility] [place] [facility] [address] [id number] [place] [address]- 9466 Dec, [facility] [place] [facility] [address] [id number] [place] [address]- 2629 Dec, [facility] [place] [facility] [address] [id number] [place] [address]- 8362 Dec, [facility] [place] [facility] [address] [id number] [place] [address]- 2546 Nov, [facility] [place] [facility] [address] [id number] [place] [address]- 7644 July, [facility] [address] [facility] [id number] [place] [address]- 1477 14 Jun, 2010 [facility] [address] [facility] [id number] [place] [address]- 2546 May, [facility] [address] [id number] [address]- 2546 14 Apr, 2010 [facility] [address] [address]- 2546 10 Apr, 2010 [facility] [address]65[place] [address] 2546 Mar, [facility] [address] [address] 2546 Jan, [facility] [address]65[place] [address] 2546 Dec, [facility] [address]00565[place] [address]- 2066 Jun, [facility] [address] [id number] [address]- 2846 Jun, IMMUNIZATIONS No Known Immunizations SOCIAL HISTORY [...]
[2018-01-12] MEDS ORDERED: HYDR-3812 PO (12:34)
--- OUTSIDE RECORDS SUMMARY | 2018-01-12 12:34 | XMS REPORT ---
Author Author RONAL CAMARGO Organization [facility] Address [address] [place] [address] Care Team Providers Care Firewall Administrator Name Role Phone RONAL CAMARGO Unavailable PROBLEMS Type Condition ICD9-CM Code BZZ85-SJ Code Onset Dates Condition Status SNOMED Code Problem Arthritis M19.90 Active 7884946 Problem Back pain M54.9 Active 677818164 Problem Prostatism N40.0 Active 84646974 Problem Other chronic pain G89.29 Active 64379979 Problem Urge incontinence of urine N39.41 Active 48202532 Problem Hypertension I10 Active 39964226 Problem Pure hypercholesterolemia E78.00 Active 448575853 Problem [place] L84 Active 603685854 ALLERGIES No Information ENCOUNTERS Encounter Location Date Diagnosis [facility] [id number] [place] [address] 36854- 6155 July, [facility] [address] 32120- 7823 Jun, Other chronic pain G89.29 [facility] [id number] [place] [address] 20779- 7335 May, Other chronic pain G89.29 [facility] [id number] [place] [address] 45361- 5288 Apr, Other chronic pain G89.29 [facility] [id number] [place] [address] 86164- 2694 Mar, Other chronic pain G89.29 [facility] [address] 87038- 9812 Feb, Other chronic pain G89.29 [facility] [address] [address] -[address]70 Feb, Acute upper respiratory infection, unspecified J06.9 and Other viral agents as the cause of diseases classified elsewhere B97.89 [facility] [id number] [place] [address] 10916- 0436 Jan, [facility] [id number] [place] [address] 21075- 6842 Jan, Back pain M54.9 and Prostatism N40.0 [facility] [id number] [place] [address] 05759- 0048 Jan, Other chronic pain G89.29 [facility] [id number] [place] [address] 14981- 3150 Dec, [facility] [id number] [place] [address] 31650- 8474 Dec, Other chronic pain G89.29 [facility] [address] 73873- 7225 Nov, Other chronic pain G89.29 [facility] [id number] [place] [address] 54359- 9800 Nov, Encounter for immunization Z23 [facility] [id number] [place] [address] 24677- 7882 Nov, Other chronic pain G89.29 [facility] [id number] [place] [address] 97188- 7839 Oct, Other chronic pain G89.29 [facility] [id number] [place] [address] 43652- 3663 Oct, Back pain M54.9 [facility] [id number] [place] [address] 22943- 5332 Sep, Back pain M54.9 [facility] [id number] [place] [address] 18045- 7177 Aug, [facility] [address] 63973- 6637 Aug, Back pain M54.9 [facility] [address] 38685- 4749 July, Back pain M54.9 [facility] [address] 84538- 8435 24 Jun, 2016 Weight loss R63.4 and Postural hypotension I95.1 [facility] [address] 76992- 6606 14 Jun, 2016 Back pain M54.9 [facility] [address] 09885- 8295 May, Back pain M54.9 [facility] [address] 59302- 7918 17 Apr, 2016 Back pain M54.9 [facility] [address] 90344- 5430 17 Apr, 2016 Pure hypercholesterolemia E78.00 [facility] [address] 22922- 3319 06 Apr, 2016 Hypertension I10 ; Back pain M54.9 ; Urge incontinence of urine N39.41 and [place] L84 [facility] [address] 09045- 7587 Mar, [facility] [address] 12495- 5299 Mar, Other chronic pain G89.29 [facility] [address] 33781- 4532 Feb, [facility] [address] 80419- 9983 Jan, [facility] [address] 27674- 9750 28 Dec, 2015 [facility] [address] 50289- 6069 28 Nov, 2015 [facility] [id number] [place] [address] 33573- 1141 05 Oct, 2015 [facility] [id number] [place] [address] 02696- 8988 Sep, Back pain M54.9 [facility] [id number] [place] [address] 80970- 7926 17 Aug, 2015 Back pain M54.9 and Hypertension I10 [facility] [address] [facility] [id number] [place] [address] 04158 -5945 13 Aug, 2015 Low back pain M54.5 and Other chronic pain G89.29 [facility] [id number] [place] [address] 88304- 6319 10 Aug, 2015 Back pain M54.9 [facility] [id number] [place] [address] 00699- 8427 July, Back pain M54.9 [facility] [id number] [place] [address] 65493- 3930 Jun, Back pain M54.9 [facility] [id number] [place] [address] 52160- 9663 May, Back pain M54.9 [facility] [id number] [place] [address] 29943- 9306 Apr, Back pain M54.9 [facility] [id number] [place] [address] 54751- 0647 Mar, Back pain M54.9 [facility] [id number] [place] [address] 70623- 1909 Feb, Prostatitis N41.9 ; Arthritis M19.90 and Hypertension I10 [facility] [id number] [place] [address] 45437- 8869 15 Feb, 2015 [facility] [address] 89807- 0471 Jan, [facility] [id number] [place] [address] 16850- 6585 Dec, Encounter for immunization Z23 [facility] [id number] [place] [address] 301377- 3801 Dec, [place] [id number] [place] [address] 02785- 8595 Dec, Eye pain H57.10 [place] [facility] [address] 76657- 6917 Dec, Contusion of left leg S80.12XA and Right shoulder injury S49.91XA [facility] [id number] [place] [address] 78187- 3135 Dec, Cellulitis L03.90 ; Back pain M54.9 ; Urinary incontinence R32 and Need for nwadolzmnp-wawiayc-rdecbtykq (Tdap) vaccine Z23 [facility] [id number] [place] [address] 87797- 6456 Nov, Need for prophylactic vaccination with tetanus-diphtheria ( TD) V06.5 [facility] [id number] [place] [address] 82731- 7223 Nov, [facility] [id number] [place] [address] 60419- 6178 Oct, [facility] [id number] [place] [address] 42840- 2541 Sep, [facility] [id number] [place] [address] 30969- 6902 Sep, [facility] [id number] [place] [address] 701547- 4874 Aug, [facility] [id number] [place] [address] 03021- 0027 July, [facility] [id number] [place] [address] 55127- 7668 July, [facility] [place] [facility] [address] [id number] [place] [address]- 7927 Jun, [facility] [place] [facility] [address] [id number] [place] [address]- 4847 Jun, [facility] [place] [facility] [address] [id number] [place] [address]- 7653 May, [facility] [place] [facility] [address] [id number] [place] [address]- 6279 May, [facility] [place] [facility] [address] [id number] [place] [address]- 1410 Apr, [facility] [place] [facility] [address] [id number] [place] [address]- 8146 Apr, [facility] [place] [facility] [address] [id number] [place] [address]- 2019 Mar, [facility] [place] [facility] [address] [id number] [place] [address]- 0505 Mar, [facility] [place] [facility] [address] [id number] [place] [address]- 5198 Mar, [facility] [place] [facility] [address] [id number] [place] [address]- 2509 Mar, [facility] [place] [facility] [address] [id number] [place] [address]- 8152 Mar, [facility] [place] [facility] [address] [id number] [place] [address]- 2558 Mar, [facility] [place] [facility] [address] [id number] [place] [address]- 5495 Mar, [facility] [place] [facility] [address] [id number] [place] [address]- 1271 Mar, [facility] [place] [facility] [address] [id number] [place] [address]- 8753 Mar, [facility] [place] [facility] [address] [id number] [place] [address]- 0503 Mar, [facility] [address] [id number] [place] [address]- 9201 Mar, [facility] [place] [facility] [address] [id number] [place] [address]- 4826 Mar, [facility] [address] [id number] [place] [address]- 3949 Mar, [facility] [place] [facility] [address] [id number] [place] [address]- 4662 Mar, [facility] [address] [id number] [place] [address]- 5201 Feb, [facility] [place] [facility] [address] [id number] [place] [address]- 2854 Feb, [facility] [address] [id number] [place] [address]- 1430 Feb, [facility] [place] [facility] [address] [id number] [place] [address]- 2012 Feb, [facility] [place] [facility] [address] [id number] [place] [address]- 2743 Feb, [facility] [place] [facility] [address] [id number] [place] [address]- 6902 Feb, [facility] [place] [facility] [address] [id number] [place] [address]- 5140 Jan, [facility] [place] [facility] [address] [id number] [place] [address]- 3631 Jan, [facility] [place] [facility] [address] [id number] [place] [address]- 0528 Dec, [facility] [place] [facility] [address] [id number] [place]62 Dec, [facility] [place] [facility] [address] [id number] [place] [address]- 2940 Dec, [facility] [place] [facility] [address] [id number] [place] [address]- 4138 Dec, [facility] [place] [facility] [address] [id number] [place] [address]- 6768 Dec, [facility] [place] [facility] [address] [id number] [place] [address]- 7183 Dec, [facility] [place] [facility] [address] [id number] [place] [address]- 5376 Nov, [facility] [place] [facility] [address] [id number] [place] [address]- 5565 Nov, [facility] [place] [facility] [address] [id number] [place] [address]- 5306 Oct, [facility] [place] [facility] [address] [id number] [place] [address]- 2888 Oct, [facility] [place] [facility] [address] [id number] [place] [address]- 8068 Sep, [facility] [place] [facility] [address] [id number] [place] [address]- 2761 Sep, [facility] [place] [facility] [address] [id number] [place] [address]- 3483 Sep, [facility] [place] [facility] [address] [id number] [place] [address]- 4651 Sep, [facility] [place] [facility] [address] [id number] [place] [address]- 9611 July, [facility] [place] [facility] [address] [id number] [place] [address]- 9168 July, [facility] [place] [facility] [address] [id number] [place] [address]- 7198 July, [facility] [place] [facility] [address] [id number] [place] [address]- 9772 July, [facility] [place] [facility] [address] [id number], [place] [address]- 1888 Feb, [facility] [address] [id number] [place] [address]- 5403 Feb, [facility] [place] [facility] [address] [id number], [place] [address]- 9529 Jan, [facility] [place] [facility] [address] [facility] [id number] [place] [address]- 2416 Jan, [facility] [place] [facility] [address] [id number] [place] [address]- 3143 Jan, [facility] [place] [facility] [address] [id number] [place] [address]- 0977 Jan, [facility] [place] [facility] [address] [id number] [place] [address]- 9954 Nov, [facility] [address] [id number], [place] [address]- 1241 Aug, [facility] [place] [facility] [address] [id number] [place] [address]- 0379 July, [facility] [address] [id number] [place] [address]- 7543 Jun, [facility] [place] [facility] [address] [facility] [id number] [place] [address]- 7812 Apr, [facility] [place] [facility] [address] [id number], [place] [address]- 5263 Mar, [facility] [place] [facility] [address] [id number], [place] [address]- 1205 Mar, [facility] [place] [facility] [address] [id number], [place] [address]- 2400 Jan, [facility] [place] [facility] [address] [id number] [place] [address]- 9796 Jan, [facility] [place] [facility] [address] [facility] [id number] [place] [address]- 8010 Jan, [facility] [place] [facility] [address] [id number] [place] [address] 2541 Jan, [facility] [place] [facility] [address] [id number] [place] [address]- 6439 Dec, [facility] [place] [facility] [address] [id number] [place] [address]- 2546 Dec, [facility] [place] [facility] [address] [id number] [place] [address]- 4732 Dec, [facility] [place] [facility] [address] [id number] [place] [address]- 1683 Dec, [facility] [place] [facility] [address] [id number] [place] [address]- 3140 Nov, [facility] [place] [facility] [address] [id number] [place] [address]- 2103 Oct, [facility] [place] [facility] [address] [id number] [place] [address]- 4312 July, [facility] [place] [facility] [address] [id number] [place] [address]- 9711 Mar, [facility] [place] [facility] [address] [id number] [place] [address]- 7254 Jan, [facility] [place] [facility] [address] [id number] [place] [address]- 2640 Jan, [facility] [place] [facility] [address] [id number] [place] [address]- 4492 Dec, [facility] [place] [facility] [address] [id number] [place] [address]- 8626 Dec, [facility] [place] [facility] [address] [id number] [place] [address]- 5353 Dec, [facility] [place] [facility] [address] [id number] [place] [address]- 2546 Nov, [facility] [place] [facility] [address] [id number] [place] [address]- 8042 July, [facility] [id number] [address]- 9701 14 Jun, 2010 [facility] [address] [facility] [id number], [place] [address] 2546 14 May, 2010 [facility] [id number] [address]- 0356 14 Apr, 2010 [facility] [address] [address]- 8386 10 Apr, 2010 [facility] [address] [address] 2540 Mar, [facility] [address] [address] 2546 Jan, [facility] [address] [address]- 3656 Dec, [facility] [address] [address]- 9046 17 Jun, 2009 [facility] [id number] [address]- 5589 Jun, IMMUNIZATIONS No Known Immunizations SOCIAL HISTORY Never Assessed REASON FOR VISIT Hydrocodone 11/24-- Needs done byt 10 PLAN OF CARE VITAL SIGNS MEDICATIONS Medication [...]
--- OUTSIDE RECORDS SUMMARY | 2018-01-12 12:34 | XMS REPORT ---
Author Author RONAL CAMARGO [facility] Address [address] [place] [address] Care Team Providers Care Vehicle Upholsterer Name Role Phone RONAL CAMARGO Unavailable PROBLEMS Type Condition ICD9-CM Code [id number] Code Onset Dates Condition Status SNOMED Code Problem Back pain M54.9 Active 111954716 Problem Other chronic pain G89.29 Active 81199820 Problem Pure hypercholesterolemia E78.00 Active 640811342 Problem Hypertension I10 Active 80531212 Problem Arthritis M19.90 Active 1141893 Problem [place] L84 Active 815585481 Problem Urge incontinence of urine N39.41 Active 17969441 ALLERGIES No Information SOCIAL HISTORY Never Assessed [...]
--- OUTSIDE RECORDS SUMMARY | 2018-01-12 12:34 | XMS REPORT ---
Author Author RONAL CAMARGO [facility] Address [address] [place] [address] Care Team Providers Care Edge Polisher Name Role Phone RONAL CAMARGO Unavailable PROBLEMS Type Condition ICD9-CM Code FTM06-WQ Code Onset Dates Condition Status SNOMED Code Problem Back pain M54.9 Active 402247473 Problem Other chronic pain G89.29 Active 52556092 Problem Pure hypercholesterolemia E78.00 Active 957707770 Problem Hypertension I10 Active 06363539 Problem Arthritis M19.90 Active 8875679 Problem [place] L84 Active 797416739 Problem Urge incontinence of urine N39.41 Active 70626748 ALLERGIES No Information SOCIAL HISTORY Never Assessed PLAN OF CARE VITAL SIGNS MEDICATIONS Medication Instructions Dosage Frequency Start Date End Date Duration Status Hydrocodone-Acetaminophen 5-325 MG Orally 3 times a day 1 tablet 8h Apr Active RESULTS No Results PROCEDURES No Known procedures IMMUNIZATIONS No Known Immunizations MEDICAL (GENERAL) HISTORY Type Description Date Medical History prostatism Medical History chronic pain Medical History hypertension
--- OUTSIDE RECORDS SUMMARY | 2018-01-12 12:34 | XMS REPORT ---
Author Author RONAL CAMARGO Organization [facility] Address [address] [place] [address] Care Team Providers Care Director Trading Name Role Phone RONAL CAMARGO Unavailable PROBLEMS Type Condition ICD9-CM Code [id number] Code Onset Dates Condition Status SNOMED Code Problem Arthritis M19.90 Active 9102172 Problem Back pain M54.9 Active 901649325 Problem Prostatism N40.0 Active 15236809 Problem Other chronic pain G89.29 Active 55742559 Problem Urge incontinence of urine N39.41 Active 21835935 Problem Hypertension I10 Active 36923850 Problem Pure hypercholesterolemia E78.00 Active 797114139 Problem [place] L84 Active [id number] ALLERGIES No Information ENCOUNTERS Encounter Location Date Diagnosis [facility] [id number] [place] [address] 34736- 8217 Aug, [facility] [address] 20905- 5669 July, Other chronic pain G89.29 [facility] [id number] [place] [address] 00735- 5598 Jun, Other chronic pain G89.29 [facility] [id number] [place] [address] 49760- 6257 May, Other chronic pain G89.29 [facility] [id number] [place] [address] 29332- 3931 15 Apr, 2017 Other chronic pain G89.29 [facility] [address] 85298- 0524 Mar, Other chronic pain G89.29 [facility] [address] 46209- 2516 Feb, Other chronic pain G89.29 [facility] [id number] [place] [address] 39194 -1017 Feb, Acute upper respiratory infection, unspecified J06.9 and Other viral agents as the cause of diseases classified elsewhere B97.89 [facility] [id number] [place] [address] 50517- 7584 Jan, [facility] [id number] [place] [address] 23645- 3603 Jan, Back pain M54.9 and Prostatism N40.0 [facility] [id number] [place] [address] 13374- 4874 Jan, Other chronic pain G89.29 [facility] [id number] [place] [address] 08445- 7365 Dec, [facility] [address] 41996- 0920 Dec, Other chronic pain G89.29 [facility] [id number] [place] [address] 53628- 1744 Nov, Other chronic pain G89.29 [facility] [id number] [place] [address] 89921- 5571 Nov, Encounter for immunization Z23 [facility] [id number] [place] [address] 63532- 5401 Nov, Other chronic pain G89.29 [facility] [id number] [place] [address] 49075- 7215 Oct, Other chronic pain G89.29 [facility] [id number] [place] [address] 30526- 1057 Oct, Back pain M54.9 [facility] [id number] [place] [address] 80256- 4778 Sep, Back pain M54.9 [facility] [address] [place] [address]- 1590 Aug, [facility] [address] 96216- 7561 Aug, Back pain M54.9 [facility] [id number] [place] [address] 55416- 8826 July, Back pain M54.9 [facility] [address] 92011- 4733 Jun, Weight loss R63.4 and Postural hypotension I95.1 [facility] [address] 98550- 5340 Jun, Back pain M54.9 [facility] [address] 32876- 2774 May, Back pain M54.9 [facility] [address] 99949- 0088 Apr, Back pain M54.9 [facility] [address] 95998- 6222 Apr, Pure hypercholesterolemia E78.00 [facility] [address] 94106- 4842 06 Apr, 2016 Hypertension I10 ; Back pain M54.9 ; Urge incontinence of urine N39.41 and [place] L84 [facility] [id number] [place] [address] 05555- 0056 Mar, [facility] [address] 41401- 5319 Mar, Other chronic pain G89.29 [facility] [address] 26366- 8875 Feb, [facility] [address] 03300- 6863 Jan, [facility] [address] [place] [address]- 3628 Dec, [facility] [id number] [place] [address] 21382- 7216 28 Nov, 2015 [facility] [id number] [place] [address] 55197- 2589 05 Oct, 2015 [facility] [id number] [place] [address] 12380- 9764 Sep, Back pain M54.9 [facility] [id number] [place] [address] 24144- 5369 17 Aug, 2015 Back pain M54.9 and Hypertension I10 [facility] [id number] [place] [address] 05322 -3609 13 Aug, 2015 Low back pain M54.5 and Other chronic pain G89.29 [facility] [id number] [place] [address] 44075- 5450 Aug, Back pain M54.9 [facility] [id number] [place] [address] 78581- 7587 July, Back pain M54.9 [facility] [id number] [place] [address] 20022- 9391 06 Jun, 2015 Back pain M54.9 [facility] [id number] [place] [address] 47779- 0789 May, Back pain M54.9 [facility] [id number] [place] [address] 66832- 8904 04 Apr, 2015 Back pain M54.9 [facility] [id number] [place] [address] 28561- 8739 Mar, Back pain M54.9 [facility] [id number] [place] [address] 53228- 4257 17 Feb, 2015 Prostatitis N41.9 ; Arthritis M19.90 and Hypertension I10 [facility] [address] [place] [address]- 2967 Feb, [facility] [id number] [place] [address] 19601- 2213 Jan, [facility] [id number] [place] [address] 66241- 4630 Dec, Encounter for immunization Z23 [place] [address] 88905- 5937 Dec, [place] [address] 35865- 6208 Dec, Eye pain H57.10 [place] [address] 90005- 5537 Dec, Contusion of left leg S80.12XA and Right shoulder injury S49.91XA [place] [address] 92593- 6360 Dec, Cellulitis L03.90 ; Back pain M54.9 ; Urinary incontinence R32 and Need for ndycrtkzql-omurtpj-torfuhxou (Tdap) vaccine Z23 [place] [id number] [place] [address] 66540- 7215 Nov, Need for prophylactic vaccination with tetanus-diphtheria ( TD) V06.5 [place] [id number] [place] [address] 33011- 0920 Nov, [facility] [id number] [place] [address] 90958- 0367 Oct, [facility] [id number] [place] [address] 31453- 1757 Sep, [facility] [id number] [place] [address] 261842- 3690 Sep, [facility] [id number] [place] [address] 079196- 4189 Aug, [facility] [id number] [place] [address] 22990- 3896 July, [facility] [place] [facility] [address] [id number] [place] [address]- 9347 July, [facility] [place] [facility] [address] [id number] [place] [address]- 6786 Jun, [facility] [place] [facility] [address] [id number] [place] [address]- 8001 Jun, [facility] [place] [facility] [address] [id number] [place] [address]- 1428 May, [facility] [place] [facility] [address] [id number] [place] [address]- 3870 May, [facility] [place] [facility] [address] [id number] [place] [address]- 0852 Apr, [facility] [place] [facility] [address] [id number] [place] [address]- 2768 Apr, [facility] [place] [facility] [address] [id number] [place] [address]- 3431 Mar, [facility] [place] [facility] [address] [id number] [place] [address]- 7224 Mar, [facility] [place] [facility] [address] [id number] [place] [address]- 4752 Mar, [facility] [place] [facility] [address] [id number] [place] [address]- 0205 Mar, [facility] [place] [facility] [address] [id number] [place] [address]- 7422 Mar, [facility] [place] [facility] [address] [id number] [place] [address]- 9658 Mar, [facility] [place] [facility] [address] [id number] [place] [address]- 4278 Mar, [facility] [place] [facility] [address] [id number] [place] [address]- 1768 Mar, [facility] [place] [facility] [address] [id number] [place] [address]- 7864 Mar, [facility] [place] [facility] [address] [id number] [place] [address]- 9360 Mar, [facility] [place] [facility] [address] [id number] [place] [address]- 7599 Mar, [facility] [place] [facility] [address] [id number] [place] [address]- 3709 Mar, [facility] [place] [facility] [address] [id number] [place] [address]- 7749 Mar, [facility] [place] [facility] [address] [id number] [place] [address]- 7371 Mar, [facility] [place] [facility] [address] [id number] [place] [address]- 5277 Feb, [facility] [place] [facility] [address] [id number] [place] [address]- 9281 Feb, [facility] [place] [facility] [address] [id number] [place] [address]- 0298 Feb, [facility] [place] [facility] [address] [id number] [place] [address]- 5685 Feb, [facility] [place] [facility] [address] [id number] [place] [address]- 7465 Feb, [facility] [place] [facility] [address] [id number] [place] [address]- 7090 Feb, [facility] [place] [facility] [address] [id number] [place] [address]- 3572 Jan, [facility] [place] [facility] [address] [id number] [place] [address]- 4517 Jan, [facility] [place] [facility] [address] [id number] [place] [address]- 5275 Dec, [facility] [place] [facility] [address] [id number] [place] [address]- 8482 Dec, [facility] [place] [facility] [address] [id number] [place] [address]- 8807 Dec, [facility] [place] [facility] [address] [id number] [place] [address]- 9719 Dec, [facility] [place] [facility] [address] [id number] [place] [address]- 8210 Dec, [facility] [place] [facility] [address] [id number] [place] [address]- 4972 Dec, [facility] [place] [facility] [address] [id number] [place] [address]- 0748 Nov, [facility] [place] [facility] [address] [id number] [place] [address]- 0881 Nov, [facility] [place] [facility] [address] [id number] [place] [address]- 7657 Oct, [facility] [place] [facility] [address] [id number] [place] [address]- 2147 Oct, [facility] [place] [facility] [address] [id number] [place] [address]- 3857 Sep, [facility] [place] [facility] [address] [id number] [place] [address]- 4966 Sep, [facility] [place] [facility] [address] [id number] [address]- 4956 Sep, [facility] [place] [facility] [address] [id number], [place] [address]- 0411 Sep, [facility] [place] [facility] [address] [id number] [place] [address]- 6621 July, [facility] [place] [facility] [address] [id number] [place] [address]- 4468 July, [facility] [place] [facility] [address] [id number] [place] [address]- 4225 July, [facility] [place] [facility] [address] [id number] [place] [address]- 6027 July, [facility] [address] [id number] [place] [address]- 5700 Feb, [facility] [address] [id number] [place] [address]72 Feb, [facility] [address] [id number] [place] [address]- 5217 Jan, [facility] [address] [id number] [place] [address]- 5402 Jan, [facility] [address] [id number] [place] [address]- 5502 Jan, [facility] [address] [id number] [place] [address]- 2253 Jan, [facility] [address] [id number] [place] [address]- 9071 Nov, [facility] [address] [id number] [place] [address]- 1945 Aug, [facility] [address] [id number] [place] [address]- 5885 July, [facility] [address] [id number] [place] [address]- 1024 Jun, [facility] [address] [id number] [place] [address]- 8344 Apr, [facility] [address] [id number] [place] [address]- 4930 Mar, [facility] [place] [facility] [address] [id number] [place] [address]- 8819 Mar, [facility] [place] [facility] [address] [id number] [place] [address]- 6628 Jan, [facility] [address] [id number] [place] [address]- 6911 Jan, [facility] [place] [facility] [address] [id number] [place] [address] 2544 Jan, [facility] [place] [facility] [address] [id number] [place] [address]- 2756 Jan, [facility] [place] [facility] [address] [id number] [place] [address]- 6515 Dec, [facility] [place] [facility] [address] [id number] [place] [address] 2540 Dec, [facility] [place] [facility] [address] [id number] [place] [address]- 0022 Dec, [facility] [place] [facility] [address] [id number] [place] [address]- 7267 Dec, [facility] [place] [facility] [address] [id number] [place] [address]- 9758 Nov, [facility] [place] [facility] [address] [id number], [place] [address]- 1720 Oct, [facility] [place] [facility] [address] [id number] [place] [address]- 4368 July, [facility] [place] [facility] [address] [id number], [place] [address]- 0287 Mar, [facility] [place] [facility] [address] [facility] [id number], [place] [address]- 4180 Jan, [facility] [place] [facility] [address] [id number], [place] [address]- 1195 Jan, [facility] [place] [facility] [address] [id number], [place] [address]- 4806 Dec, [facility] [place] [facility] [address] [id number], [place] [address]- 2619 Dec, [facility] [place] [facility] [address] [id number], [place] [address]- 0934 Dec, [facility] [place] [facility] [address] [id number], [place] [address] 2546 14 Nov, 2010 [facility] [id number] [address]- 0806 July, [facility] [id number] [address]- 0136 Jun, [facility] [id number] [address]- 2546 May, [facility] [id number] [address]- 2546 14 Apr, 2010 [facility] [address] [address]- 5476 Apr, [facility] [id number] [address] 2546 Mar, [facility] [id number] [address]- 1656 Jan, [facility] [id number] [address]- 9949 Dec, [facility] [id number] [address]- 7906 Jun, [facility] [id number] [address]- 7916 Jun, IMMUNIZATIONS No Known Immunizations SOCIAL HISTORY Never Assessed REASON FOR VISIT prostatism PLAN OF CARE VITAL SIGNS MEDICATIONS Medication Instructions Dosage Frequency Start Date End Date Duration Status Proscar 5 mg Orally Once a day 1 tablet 24h Jan, July, 30 day(s) Active RESULTS No Results PROCEDURES No Known procedures INSTRUCTIONS MEDICATIONS ADMINISTERED No Known Medications MEDICAL (GENERAL) HISTORY Type Description Date Medical History prostatism Medical History chronic pain Medical History hypertension
--- OUTSIDE RECORDS SUMMARY | 2018-01-12 12:35 | XMS REPORT ---
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 Name Role Phone RONAL CAMARGO Unavailable PROBLEMS Type Condition ICD9-CM Code OGG19-EH Code Onset Dates Condition Status SNOMED Code Problem Arthritis M19.90 Active 6956927 Problem Back pain M54.9 Active 006241919 Problem Prostatism N40.0 Active 66364235 Problem Other chronic pain G89.29 Active 31530603 Problem Urge incontinence of urine N39.41 Active 84308462 Problem Hypertension I10 Active 27696635 Problem Pure hypercholesterolemia E78.00 Active 755649375 Problem [place] L84 Active [id number] ALLERGIES No Information ENCOUNTERS Encounter Location Date Diagnosis [facility] [id number] [place] [address] 63130- 2127 Jun, Other chronic pain G89.29 [facility] [address] 23734- 4877 May, Other chronic pain G89.29 [facility] [address] 66358- 5797 15 Apr, 2017 Other chronic pain G89.29 [facility] [id number] [place] [address] 15663- 4297 Mar, Other chronic pain G89.29 [facility] [address] 04214- 4069 Feb, Other chronic pain G89.29 [facility] [id number] [place] [address] 37629 -9396 Feb, Acute upper respiratory infection, unspecified J06.9 and Other viral agents as the cause of diseases classified elsewhere B97.89 [place] [id number] [address] Jan, [facility] [id number] [place] [address] 82680- 0117 Jan, Back pain M54.9 and Prostatism N40.0 [facility] [id number] [place] [address] 35040- 7747 Jan, Other chronic pain G89.29 [facility] [id number] [place] [address] 75856- 8274 Dec, [facility] [id number] [place] [address] 88104- 4569 Dec, Other chronic pain G89.29 [facility] [id number] [place] [address] 52019- 8906 Nov, Other chronic pain G89.29 [facility] [id number] [place] [address] 64771- 3071 Nov, Encounter for immunization Z23 [facility] [id number] [place] [address] 81291- 4051 Nov, Other chronic pain G89.29 [facility] [id number] [place] [address] 99217- 3919 Oct, Other chronic pain G89.29 [facility] [id number] [place] [address] 43426- 6468 Oct, Back pain M54.9 [facility] [id number] [place] [address] 38313- 8967 Sep, Back pain M54.9 [facility] [id number] [place] [address] 33764- 2566 Aug, [facility] [id number] [place] [address] 46043- 8837 Aug, Back pain M54.9 [facility] [address] 99149- 3634 July, Back pain M54.9 [facility] [address] 80239- 7149 Jun, Weight loss R63.4 and Postural hypotension I95.1 [facility] [address] 79982- 4807 14 Jun, 2016 Back pain M54.9 [facility] [address] 10243- 8435 May, Back pain M54.9 [facility] [address] 11388- 4344 Apr, Back pain M54.9 [facility] [address] 25245- 2698 Apr, Pure hypercholesterolemia E78.00 [facility] [address] 88400- 2557 Apr, Hypertension I10 ; Back pain M54.9 ; Urge incontinence of urine N39.41 and [place] L84 [facility] [address] 26009- 4298 Mar, [facility] [address] 80759- 3517 Mar, Other chronic pain G89.29 [facility] [address] 67077- 4802 Feb, [facility] [address] 24849- 2347 Jan, [facility] [address] 37112- 6535 28 Dec, 2015 [facility] [address] 43308- 6203 28 Nov, 2015 [facility] [address] 56938- 2541 Oct, [facility] [id number] [place] [address] 41589- 5668 Sep, Back pain M54.9 [facility] [id number] [place] [address] 44252- 2916 17 Aug, 2015 Back pain M54.9 and Hypertension I10 [facility] [id number] [place] [address] 45810 -7707 13 Aug, 2015 Low back pain M54.5 and Other chronic pain G89.29 [facility] [id number] [place] [address] 09564- 8972 Aug, Back pain M54.9 [facility] [id number] [place] [address] 01598- 6533 July, Back pain M54.9 [facility] [address] 82793- 3469 Jun, Back pain M54.9 [facility] [id number] [place] [address] 19392- 4794 May, Back pain M54.9 [facility] [id number] [place] [address] 99375- 1831 04 Apr, 2015 Back pain M54.9 [facility] [id number] [place] [address] 16343- 4167 Mar, Back pain M54.9 [facility] [id number] [place] [address] 90529- 8991 Feb, Prostatitis N41.9 ; Arthritis M19.90 and Hypertension I10 [facility] [id number] [place] [address] 62366- 6243 15 Feb, 2015 [facility] [id number] [place] [address] 21611- 5177 Jan, [facility] [address] 23499- 8690 Dec, Encounter for immunization Z23 [facility] [id number] [place] [address] 25167- 4419 Dec, [facility] [id number] [place] [address] 35000- 8433 Dec, Eye pain H57.10 [facility] [address] 17261- 4198 Dec, Contusion of left leg S80.12XA and Right shoulder injury S49.91XA [place] [address] 19849- 3342 Dec, Cellulitis L03.90 ; Back pain M54.9 ; Urinary incontinence R32 and Need for sicnqabdoj-nrcukud-tozzdvlfc (Tdap) vaccine Z23 [place] [id number] [place] [address] 45112- 8581 Nov, Need for prophylactic vaccination with tetanus-diphtheria ( TD) V06.5 [place] [id number] [place] [address] 16475- 5507 Nov, [facility] [id number] [place] [address] 87999- 8067 Oct, [facility] [id number] [place] [address] 81855- 0235 Sep, [facility] [id number] [place] [address] 86962- 5949 Sep, [facility] [id number] [place] [address] 73962- 1818 Aug, [facility] [id number] [place] [address] 791615- 8244 July, [facility] [id number] [place] [address] 88596- 5528 July, [facility] [id number] [place] [address] 72884- 1409 14 Jun, 2014 [facility] [place] [facility] [address] [id number] [place] [address]- 5122 Jun, [facility] [place] [facility] [address] [id number] [place] [address]- 0775 May, [facility] [place] [facility] [address] [id number] [place] [address]- 8847 May, [facility] [place] [facility] [address] [id number] [place] [address]- 0477 Apr, [facility] [place] [facility] [address] [id number] [place] [address]- 7120 Apr, [facility] [place] [facility] [address] [id number] [place] [address]- 6131 Mar, [facility] [place] [facility] [address] [id number] [place] [address]- 3274 Mar, [facility] [place] [facility] [address] [id number] [place] [address]- 1910 Mar, [facility] [place] [facility] [address] [id number] [place] [address]- 8196 Mar, [facility] [place] [facility] [address] [id number] [place] [address]- 1343 Mar, [facility] [place] [facility] [address] [id number] [place] [address]- 4556 Mar, [facility] [place] [facility] [address] [id number] [place] [address]- 2143 Mar, [facility] [place] [facility] [address] [id number] [place] [address]- 5583 Mar, [facility] [place] [facility] [address] [id number] [place] [address]- 5397 Mar, [facility] [place] [facility] [address] [id number] [place] [address]- 0127 Mar, [facility] [place] [facility] [address] [id number] [place] [address]- 8579 Mar, [facility] [address] [id number] [place] [address]- 6816 Mar, [facility] [place] [facility] [address] [id number] [place] [address]- 8274 Mar, [facility] [address] [id number] [place] [address]- 0507 Mar, [facility] [place] [facility] [address] [id number] [place] [address]- 1278 Feb, [facility] [place] [facility] [address] [id number] [place] [address]- 6393 Feb, [facility] [place] [facility] [address] [id number] [place] [address]- 6137 Feb, [facility] [place] [facility] [address] [id number] [place] [address]- 2360 Feb, [facility] [place] [facility] [address] [id number] [place] [address]- 1407 Feb, [facility] [place] [facility] [address] [id number] [place] [address]- 0576 Feb, [facility] [place] [facility] [address] [id number] [place] [address]- 9189 Jan, [facility] [place] [facility] [address] [id number] [place] [address]- 0518 Jan, [facility] [place] [facility] [address] [id number] [place] [address]- 4703 Dec, [facility] [place] [facility] [address] [id number] [place] [address]- 4917 Dec, [facility] [place] [facility] [address] [id number] [place] [address]- 1630 Dec, [facility] [place] [facility] [address] [id number] [place] [address]- 7738 Dec, [facility] [place] [facility] [address] [id number] [place] [address]- 3672 Dec, [facility] [place] [facility] [address] [id number] [place] [address]- 7151 Dec, [facility] [place] [facility] [address] [id number] [place] [address]- 8162 Nov, [facility] [place] [facility] [address] [id number] [place] [address]- 6636 Nov, [facility] [place] [facility] [address] [id number] [place] [address]- 0809 Oct, [facility] [place] [facility] [address] [id number] [place] [address]- 4122 Oct, [facility] [place] [facility] [address] [id number] [place] [address]- 1906 Sep, [facility] [place] [facility] [address] [id number] [place] [address]- 4962 Sep, [facility] [place] [facility] [address] [id number] [place] [address]- 0619 Sep, [facility] [place] [facility] [address] [id number] [place] [address]- 0755 Sep, [facility] [place] [facility] [address] [id number] [place] [address]- 7627 July, [facility] [place] [facility] [address] [id number] [place] [address]- 8335 July, [facility] [place] [facility] [address] [id number] [place] [address]- 6393 July, [facility] [place] [facility] [address] [id number] [place] [address]- 3252 July, [facility] [place] [facility] [address] [id number] [place] [address]- 7007 Feb, [facility] [place] [facility] [address] [id number] [address]- 3570 Feb, [facility] [address] [id number] [place] [address]- 8700 Jan, [facility] [place] [facility] [address] [id number] [address]- 9401 Jan, [facility] [place] [facility] [address] [facility] [id number] [place] [address]- 9709 Jan, [facility] [place] [facility] [address] [id number] [place] [address]- 2165 Jan, [facility] [place] [facility] [address] [id number] [place] [address]- 2367 Nov, [facility] [place] [facility] [address] [id number] [place] [address]- 5303 Aug, [facility] [address] [facility] [id number] [place] [address]- 9129 July, [facility] [place] [facility] [address] [id number] [place] [address]- 7306 Jun, [facility] [address] [id number] [place] [address]- 2389 Apr, [facility] [place] [facility] [address] [facility] [id number] [place] [address]- 6352 Mar, [facility] [place] [facility] [address] [id number] [address]- 4177 Mar, [facility] [place] [facility] [address] [id number] [address]- 4227 Jan, [facility] [place] [facility] [address] [id number] [place] [address]- 1188 Jan, [facility] [place] [facility] [address] [facility] [id number] [place] [address]- 2206 Jan, [facility] [place] [facility] [address] [facility] [id number] [place] [address]- 2234 Jan, [facility] [place] [facility] [address] [id number] [place] [address]- 3472 Dec, [facility] [place] [facility] [address] [id number] [place] [address]- 9458 Dec, [facility] [place] [facility] [address] [id number] [place] [address]- 2546 Dec, [facility] [place] [facility] [address] [id number] [place] [address]- 8787 Dec, [facility] [place] [facility] [address] [id number] [place] [address]- 1243 Nov, [facility] [place] [facility] [address] [id number] [place] [address]- 5666 Oct, [facility] [place] [facility] [address] [id number] [place] [address]- 2556 July, [facility] [place] [facility] [address] [id number] [place] [address]- 8471 Mar, [facility] [place] [facility] [address] [id number] [place] [address]- 7074 Jan, [facility] [place] [facility] [address] [id number] [place] [address]- 1600 Jan, [facility] [place] [facility] [address] [id number] [place] [address]- 0141 Dec, [facility] [place] [facility] [address] [id number] [place] [address]- 2720 Dec, [facility] [place] [facility] [address] [id number] [place] [address]- 1365 Dec, [facility] [place] [facility] [address] [id number] [place] [address]- 1678 Nov, [facility] [place] [facility] [address] [id number] [place] [address] 2546 July, [facility] [place] [facility] [address] [id number] [place] [address]- 9093 14 Jun, 2010 [facility] [id number] [address]- 2809 14 May, 2010 [facility] [address] [address]- 2546 14 Apr, 2010 [facility] [address] [address]- 2546 10 Apr, 2010 [facility] [address] [address]- 2546 Mar, [facility] [address] [address]- 6576 Jan, [facility] [address] [address]- 5286 Dec, [facility] [address] [address]- 9326 Jun, [facility] [id number] [address]- 7986 Jun, IMMUNIZATIONS No Known Immunizations SOCIAL HISTORY Never Assessed REASON FOR VISIT VMB not set up PLAN OF CARE VITAL SIGNS MEDICATIONS Unknown Medications RESULTS No Results PROCEDURES No Known procedures INSTRUCTIONS MEDICATIONS ADMINISTERED No Known Medications MEDICAL (GENERAL) HISTORY Type Description Date Medical History prostatism Medical History chronic pain Medical History hypertension
--- OUTSIDE RECORDS SUMMARY | 2018-01-12 12:35 | XMS REPORT ---
Author Author RONAL CAMARGO Organization [facility] Address [address] [place] [address] Care Team Providers Care Bulk Station Operator Name Role Phone RONAL CAMARGO Unavailable PROBLEMS Type Condition ICD9-CM Code XCT62-LF Code Onset Dates Condition Status SNOMED Code Problem Hypertension I10 Active 92651953 Problem Urge incontinence of urine N39.41 Active 46256120 Problem Arthritis M19.90 Active 1582158 Problem Back pain M54.9 Active 080304037 Problem Functional diarrhea K59.1 Active 06241661 Problem Right inguinal hernia K40.90 Active 014212600 Problem Pure hypercholesterolemia E78.00 Active 174731737 Problem [place] L84 Active 832054763 Problem Prostatism N40.0 Active 92346181 Problem Other chronic pain G89.29 Active [id number] ALLERGIES No Information ENCOUNTERS Encounter Location Date Diagnosis [facility] [address] [address] Aug, Back pain M54.9 ; Prostatism N40.0 ; Functional diarrhea K59.1 and Right inguinal hernia K40.90 [facility] [id number] [place] [address] 56131- 1867 July, Other chronic pain G89.29 [facility] [id number] [place] [address] 80399- 4966 Jun, Other chronic pain G89.29 [facility] [address] [address]- 6724 May, Other chronic pain G89.29 [facility] [id number] [place] [address] 99033- 5264 15 Apr, 2017 Other chronic pain G89.29 [facility] [address] [place] [address] 1205 Mar, Other chronic pain G89.29 [facility] [id number] [place] [address] 49321- 7137 Feb, Other chronic pain G89.29 [facility] [address] [address] Feb, Acute upper respiratory infection, unspecified J06.9 and Other viral agents as the cause of diseases classified elsewhere B97.89 [facility] [id number] [place] [address] 66310- 6152 Jan, [facility] [id number] [place] [address] 66333- 8238 Jan, Back pain M54.9 and Prostatism N40.0 [facility] [id number] [place] [address] 24217- 6983 Jan, Other chronic pain G89.29 [facility] [id number] [place] [address] 13386- 6689 Dec, [facility] [id number] [place] [address] 11958- 8345 Dec, Other chronic pain G89.29 [facility] [id number] [place] [address] 94353- 5149 Nov, Other chronic pain G89.29 [facility] [id number] [place] [address] 79220- 2183 Nov, Encounter for immunization Z23 [facility] [id number] [place] [address] 73357- 6578 Nov, Other chronic pain G89.29 [facility] [id number] [place] [address] 46520- 4570 Oct, Other chronic pain G89.29 [facility] [id number] [place] [address] 35531- 5765 Oct, Back pain M54.9 [facility] [id number] [place] [address] 31914- 0800 Sep, Back pain M54.9 [facility] [address] 8[address]36- 7014 Aug, [facility] [address] 32513- 0185 Aug, Back pain M54.9 [facility] [address] 63599- 9843 July, Back pain M54.9 [facility] [address] 8[address]89- 4102 Jun, Weight loss R63.4 and Postural hypotension I95.1 [place] [address] 00[address]64- 0821 Jun, Back pain M54.9 [facility] [address] 8[address]88- 9092 May, Back pain M54.9 [facility] [address] 98847- 1255 Apr, Back pain M54.9 [facility] [address] 73970- 4414 Apr, Pure hypercholesterolemia E78.00 [facility] [address] 01981- 9709 Apr, Hypertension I10 ; Back pain M54.9 ; Urge incontinence of urine N39.41 and [place] L84 [place] [address] 05734- 6846 Mar, [facility] [address] 52177- 2307 Mar, Other chronic pain G89.29 [facility] [address] 18550- 7712 Feb, [facility] [id number] [place] [address] 80112- 1551 Jan, [facility] [id number] [place] [address] 65082- 3173 Dec, [facility] [id number] [place] [address] 61461- 5187 Nov, [facility] [id number] [place] [address] 87420- 4663 Oct, [facility] [id number] [place] [address] 51664- 3414 Sep, Back pain M54.9 [facility] [id number] [place] [address] 35341- 4201 17 Aug, 2015 Back pain M54.9 and Hypertension I10 [facility] [id number] [place] [address] 99437 -3640 13 Aug, 2015 Low back pain M54.5 and Other chronic pain G89.29 [facility] [id number] [place] [address] 26481- 3862 10 Aug, 2015 Back pain M54.9 [facility] [id number] [place] [address] 09151- 2141 July, Back pain M54.9 [facility] [id number] [place] [address] 88079- 7433 06 Jun, 2015 Back pain M54.9 [facility] [id number] [place] [address] 56576- 6288 May, Back pain M54.9 [facility] [id number] [place] [address] 99628- 8281 04 Apr, 2015 Back pain M54.9 [facility] [id number] [place] [address] 12067- 8460 Mar, Back pain M54.9 [facility] [id number] [place] [address] 25799- 6421 Feb, Prostatitis N41.9 ; Arthritis M19.90 and Hypertension I10 [place] [address] 95252- 5163 Feb, [place] [address] 13273- 0384 Jan, [place] [address] 68578- 3428 Dec, Encounter for immunization Z23 [place] [address] 16719- 7627 Dec, [place] [address] 56464- 2307 Dec, Eye pain H57.[address] 95774- 8467 Dec, Contusion of left leg S80.12XA and Right shoulder injury S49.91XA [place] [address] 67997- 2030 Dec, Cellulitis L03.90 ; Back pain M54.9 ; Urinary incontinence R32 and Need for dmlrqfugrq-qlzldrr-vevbvaepo (Tdap) vaccine Z23 [place] [id number] [place] [address] 02464- 6400 Nov, Need for prophylactic vaccination with tetanus-diphtheria ( TD) V06.5 [place] [id number] [place] [address] 75535- 4499 Nov, [place] [address] 49472- 6209 Oct, [place] [id number] [place] [address] 26178- 8520 Sep, [place] [address] 64200- 6508 Sep, [facility] [place] [facility] [address] [id number] [place] [address]- 8415 Aug, [facility] [place] [facility] [address] [id number] [place] [address]- 3165 July, [facility] [place] [facility] [address] [id number] [place] [address]- 8391 July, [facility] [place] [facility] [address] [id number] [place] [address]- 9581 Jun, [facility] [place] [facility] [address] [id number] [place] [address]- 6662 Jun, [facility] [place] [facility] [address] [id number] [place] [address]- 8070 May, [facility] [place] [facility] [address] [id number] [place] [address]- 2240 May, [facility] [place] [facility] [address] [id number] [place] [address]- 8614 Apr, [facility] [place] [facility] [address] [id number] [place] [address]- 6252 Apr, [facility] [place] [facility] [address] [id number] [place] [address]- 2377 Mar, [facility] [place] [facility] [address] [id number] [place] [address]- 4543 Mar, [facility] [place] [facility] [address] [id number] [place] [address]- 0475 Mar, [facility] [place] [facility] [address] [id number] [place] [address]- 4751 Mar, [facility] [place] [facility] [address] [id number] [place] [address]- 2732 Mar, [facility] [place] [facility] [address] [id number] [place] [address]- 4800 Mar, [facility] [place] [facility] [address] [id number] [place] [address]- 3446 Mar, [facility] [address] [id number] [place] [address]- 3605 Mar, [facility] [place] [facility] [address] [id number] [place] [address]- 9982 Mar, [facility] [place] [facility] [address] [id number] [place] [address]- 4313 Mar, [facility] [place] [facility] [address] [id number] [place] [address]- 5446 Mar, [facility] [place] [facility] [address] [id number] [place] [address]- 6213 Mar, [facility] [place] [facility] [address] [id number] [place] [address]- 9302 Mar, [facility] [place] [facility] [address] [id number] [place] [address]- 1217 Mar, [facility] [place] [facility] [address] [id number] [place] [address]- 1681 Feb, [facility] [place] [facility] [address] [id number] [place] [address]- 2821 Feb, [facility] [place] [facility] [address] [id number] [place] [address]- 2102 Feb, [facility] [place] [facility] [address] [id number] [place] [address]- 5027 Feb, [facility] [place] [facility] [address] [id number] [place] [address]- 3816 Feb, [facility] [place] [facility] [address] [id number] [place] [address]- 0926 Feb, [facility] [place] [facility] [address] [id number] [place] [address]- 5212 Jan, [facility] [place] [facility] [address] [id number] [place] [address]- 9852 Jan, [facility] [place] [facility] [address] [id number] [place] [address]- 1592 Dec, [facility] [place] [facility] [address] [id number] [place] [address]- 2117 Dec, [facility] [place] [facility] [address] [id number] [place] [address]- 7026 Dec, [facility] [place] [facility] [address] [id number] [place] [address]- 6889 Dec, [facility] [place] [facility] [address] [id number] [place] [address]- 3762 Dec, [facility] [place] [facility] [address] [id number] [place] [address]- 4947 Dec, [facility] [place] [facility] [address] [id number] [place] [address]- 4771 Nov, [facility] [place] [facility] [address] [id number] [place] [address]- 1771 Nov, [facility] [place] [facility] [address] [id number] [place] [address]- 6486 Oct, [facility] [place] [facility] [address] [id number] [place] [address]- 8036 Oct, [facility] [place] [facility] [address] [id number] [place] [address]- 1423 Sep, [facility] [place] [facility] [address] [id number] [place] [address]- 9845 Sep, [facility] [place] [facility] [address] [id number] [place] [address]- 7944 Sep, [facility] [place] [facility] [address] [id number] [place] [address]- 0096 Sep, [facility] [place] [facility] [address] [id number] [place] [address]- 4026 July, [facility] [place] [facility] [address] [id number] [place] [address]- 8726 July, [facility] [address] [id number] [place] [address]- 6796 July, [facility] [place] [facility] [address] [id number] [place] [address]- 3916 July, [facility] [address] [id number] [place] [address]- 2276 Feb, [facility] [place] [facility] [address] [id number] [place] [address]- 6410 Feb, [facility] [place] [facility] [address] [id number] [place] [address]- 9224 Jan, [facility] [place] [facility] [address] [id number] [place] [address]- 2829 Jan, [facility] [place] [facility] [address] [id number] [place] [address]- 6439 Jan, [facility] [place] [facility] [address] [id number] [place] [address]- 6166 Jan, [facility] [place] [facility] [address] [id number] [place] [address]- 0504 Nov, [facility] [place] [facility] [address] [id number] [place] [address]- 2184 Aug, [facility] [place] [facility] [address] [id number] [place] [address]- 1302 July, [facility] [place] [facility] [address] [id number] [place] [address]- 7478 Jun, [facility] [place] [facility] [address] [id number] [place] [address]- 0026 Apr, [facility] [place] [facility] [address] [id number] [place] [address]- 8193 Mar, [facility] [place] [facility] [address] [id number] [place] [address]- 2266 Mar, [facility] [place] [facility] [address] [id number] [place] [address]- 8862 13 Jan, 2012 [facility] [place] [facility] [address] [id number] [place] [address]- 7680 Jan, [facility] [place] [facility] [address] [id number] [place] [address] 2546 Jan, [facility] [place] [facility] [address] [id number] [place] [address]- 1006 Jan, [facility] [place] [facility] [address] [id number] [place] [address]- 2794 Dec, [facility] [place] [facility] [address] [id number] [place] [address], [place] [address]- 6897 Dec, [facility] [place] [facility] [address] [id number] [place] [address]- 7365 Dec, [facility] [place] [facility] [address] [id number] [place] [address]- 0281 Dec, [facility] [place] [facility] [address] [id number] [place] [address]- 1553 Nov, [facility] [place] [facility] [address] [id number] [place] [address]- 4116 Oct, [facility] [place] [facility] [address] [id number] [place] [address]- 3081 July, [facility] [place] [facility] [address] [id number] [place] [address]- 2540 Mar, [facility] [place] [facility] [address] [id number] [place] [address]- 9628 Jan, [facility] [place] [facility] [address] [id number] [place] [address]- 8303 Jan, [facility] [place] [facility] [address] [id number] [place] [address]- 1417 Dec, [facility] [place] [facility] [address] [id number] [place] [address]- 9406 Dec, [facility] [address] [facility] [id number] [address]- 0376 17 Dec, 2010 [facility] [address] [facility] [id number] [address]- 4176 14 Nov, 2010 [facility] [address] [facility] [id number] [place] [address]- 9146 July, [facility] [address] [facility] [id number] [place] [address]- 7846 Jun, [facility] [address] [facility] [id number] [place] [address]- 4053 May, [facility] [address] [facility] [id number] [place] [address]- 0926 14 Apr, 2010 [facility] [address] [address]- 2136 Apr, [facility] [address] [address]- 1286 Mar, [facility] [address] [address]- 3866 Jan, [facility] [id number] [address]- 3066 Dec, [facility] [id number] [address]- 8066 Jun, [facility] [id number] [address]- 5476 Jun, IMMUNIZATIONS No Known Immunizations SOCIAL HISTORY Never Assessed REASON FOR VISIT Hydrocodone- 04/13 PLAN OF CARE VITAL SIGNS MEDICATIONS Medication Instructions Dosage Frequency Start Date End Date Duration Status Hydrocodone-Acetaminophen 5-325 MG Orally 3 times a day 1 tablet 8h Mar 28 days Active RESULTS No Results PROCEDURES No Known procedures INSTRUCTIONS MEDICATIONS ADMINISTERED No Known Medications MEDICAL (GENERAL) HISTORY Type Description Date Medical History prostatism Medical History chronic pain Medical History hypertension
--- OUTSIDE RECORDS SUMMARY | 2018-01-12 12:35 | XMS REPORT ---
Author Author RONAL CAMARGO Organization [facility] [place] Address [address] [place] [address] Care Team Providers Care Powertrain Design Engineer Name Role Phone RONAL CAMARGO Unavailable PROBLEMS Type Condition ICD9-CM Code VDP67-TP Code Onset Dates Condition Status SNOMED Code Problem Arthritis M19.90 Active 7178085 Problem Back pain M54.9 Active 206180615 Problem Prostatism N40.0 Active 62617351 Problem Other chronic pain G89.29 Active 02895220 Problem Urge incontinence of urine N39.41 Active 35750796 Problem Hypertension I10 Active 75966872 Problem Pure hypercholesterolemia E78.00 Active 203304616 Problem [place] L84 Active 786950009 ALLERGIES No Information ENCOUNTERS Encounter Location Date Diagnosis [facility] [place] [id number] [place] [address] 35615- 4883 July, Other chronic pain G89.29 [facility] [place] [address] 31088- 7406 Jun, Other chronic pain G89.29 [facility] [place] [id number] [place] [address] 16662- 6198 15 May, 2017 Other chronic pain G89.29 [facility] [place] [id number] [place] [address] 52384- 3438 15 Apr, 2017 Other chronic pain G89.29 [facility] [place] [id number] [place] [address] 13306- 8055 Mar, Other chronic pain G89.29 [facility] [place] [id number] [place] [address] 82644- 5655 Feb, Other chronic pain G89.29 [facility] [address] [address]45 -8614 Feb, Acute upper respiratory infection, unspecified J06.9 and Other viral agents as the cause of diseases classified elsewhere B97.89 [facility] [place] [id number] [place] [address] 47782- 4342 Jan, [facility] [place] [id number] [place] [address] 85653- 7982 Jan, Back pain M54.9 and Prostatism N40.0 [facility] [place] [id number] [place] [address] 92707- 1019 Jan, Other chronic pain G89.29 [facility] [place] [address] 39803- 1464 Dec, [facility] [place] [id number] [place] [address] 72374- 1502 Dec, Other chronic pain G89.29 [facility] [place] [id number] [place] [address] 00698- 9003 Nov, Other chronic pain G89.29 [facility] [place] [id number] [place] [address] 76729- 6623 Nov, Encounter for immunization Z23 [facility] [place] [id number] [place] [address] 64706- 1457 Nov, Other chronic pain G89.29 [facility] [place] [id number] [place] [address] 37143- 2701 Oct, Other chronic pain G89.29 [facility] [place] [id number] [place] [address] 01613- 6175 Oct, Back pain M54.9 [facility] [place] [id number] [place] [address] 38178- 9333 Sep, Back pain M54.9 [facility] [place] [id number] [place] [address] 72860- 9589 Aug, [facility] [place] [address] 17640- 0948 09 Aug, 2016 Back pain M54.9 [facility] [place] [address] 84183- 8705 July, Back pain M54.9 [facility] [place] [address] 21956- 7174 24 Jun, 2016 Weight loss R63.4 and Postural hypotension I95.1 [facility] [place] [address] 48151- 8973 14 Jun, 2016 Back pain M54.9 [facility] [place] [address] 78932- 6562 May, Back pain M54.9 [facility] [place] [address] 53174- 7884 17 Apr, 2016 Back pain M54.9 [facility] [place] [address] 84925- 9156 Apr, Pure hypercholesterolemia E78.00 [facility] [place] [address] 16201- 2478 06 Apr, 2016 Hypertension I10 ; Back pain M54.9 ; Urge incontinence of urine N39.41 and [place] L84 [facility] [place] [id number] [place] [address] 69908- 0233 Mar, [facility] [place] [address] 68177- 1483 Mar, Other chronic pain G89.29 [facility] [place] [address] 79919- 7594 Feb, [facility] [place] [address] 61138- 5430 Jan, [facility] [place] [address] 01573- 0298 Dec, [facility] [place] [address] [place] [address]- 0043 28 Nov, 2015 [facility] [place] [id number] [place] [address] 69543- 5255 05 Oct, 2015 [facility] [place] [id number] [place] [address] 78988- 6250 Sep, Back pain M54.9 [facility] [place] [id number] [place] [address] 87686- 2694 17 Aug, 2015 Back pain M54.9 and Hypertension I10 [facility] [id number] [place] [address] 61972 -2703 13 Aug, 2015 Low back pain M54.5 and Other chronic pain G89.29 [facility] [place] [id number] [place] [address] 96146- 4291 10 Aug, 2015 Back pain M54.9 [facility] [place] [address] 55793- 1418 July, Back pain M54.9 [facility] [place] [id number] [place] [address] 37584- 7386 06 Jun, 2015 Back pain M54.9 [facility] [place] [id number] [place] [address] 93244- 3658 May, Back pain M54.9 [facility] [place] [id number] [place] [address] 43765- 6941 Apr, Back pain M54.9 [facility] [place] [id number] [place] [address] 62601- 0735 Mar, Back pain M54.9 [facility] [place] [address] 06944- 0257 17 Feb, 2015 Prostatitis N41.9 ; Arthritis M19.90 and Hypertension I10 [facility] [place] [id number] [place] [address] 34108- 4211 15 Feb, 2015 [facility] [place] [address] [place] [address]- 8855 Jan, [facility] [place] [id number] [place] [address] 45036- 1946 Dec, Encounter for immunization Z23 [facility] [place] [id number] [place] [address] 49845- 9380 Dec, [place] [address] 19527- 0646 Dec, Eye pain H57.10 [place] [address] 52745- 8503 Dec, Contusion of left leg S80.12XA and Right shoulder injury S49.91XA [place] [id number] [place] [address] 65423- 2585 Dec, Cellulitis L03.90 ; Back pain M54.9 ; Urinary incontinence R32 and Need for fwzbwsuygh-vsfetsw-mdniwzjja (Tdap) vaccine Z23 [place] [id number] [place] [address] 34545- 8061 Nov, Need for prophylactic vaccination with tetanus-diphtheria ( TD) V06.5 [place] [id number] [place] [address] 43136- 5658 Nov, [place] [id number] [place] [address] 24419- 1634 Oct, [place] [id number] [place] [address] 87205- 7845 Sep, [facility] [place] [id number] [place] [address] 27677- 7341 Sep, [facility] [place] [id number] [place] [address] 02839- 3275 Aug, [facility] [place] [id number] [place] [address] 43619- 8776 July, [place] [id number] [place] [address] 63509- 9453 July, [facility] [place] [facility] [address] [id number] [place] [address]- 0308 Jun, [facility] [place] [facility] [address] [id number] [place] [address]- 8851 Jun, [facility] [place] [facility] [address] [id number] [place] [address]- 9483 May, [facility] [place] [facility] [address] [id number] [place] [address]- 4010 May, [facility] [place] [facility] [address] [id number] [place] [address]- 9329 Apr, [facility] [place] [facility] [address] [id number] [place] [address]- 3167 Apr, [facility] [place] [facility] [address] [id number] [place] [address]- 8807 Mar, [facility] [place] [facility] [address] [id number] [place] [address]- 7186 Mar, [facility] [place] [facility] [address] [id number] [place] [address]- 8026 Mar, [facility] [place] [facility] [address] [id number] [place] [address]- 0339 Mar, [facility] [place] [facility] [address] [id number] [place] [address]- 3328 Mar, [facility] [place] [facility] [address] [id number] [place] [address]- 3674 Mar, [facility] [place] [facility] [address] [id number] [place] [address]- 8585 Mar, [facility] [place] [facility] [address] [id number] [place] [address]- 7531 Mar, [facility] [place] [facility] [address] [id number] [place] [address]- 2082 Mar, [facility] [place] [facility] [address] [id number] [place] [address]- 4954 Mar, [facility] [place] [facility] [address] [id number] [place] [address]- 5933 Mar, [facility] [place] [facility] [address] [id number] [place] [address]- 3155 Mar, [facility] [place] [facility] [address] [id number] [place] [address]- 0674 Mar, [facility] [place] [facility] [address] [id number] [place] [address]- 9365 Mar, [facility] [place] [facility] [address] [id number] [place] [address]- 2076 Feb, [facility] [place] [facility] [address] [id number] [place] 7752 Feb, [facility] [place] [facility] [address] [id number] [place] [address]- 7165 Feb, [facility] [place] [facility] [address] [id number] [place] [address]- 9674 Feb, [facility] [place] [facility] [address] [id number] [place] [address]- 4770 Feb, [facility] [place] [facility] [address] [id number] [place] 6576 Feb, [facility] [place] [facility] [address] [id number] [place] [address]- 1339 Jan, [facility] [place] [facility] [address] [id number] [place] [address]- 5548 Jan, [facility] [place] [facility] [address] [id number] [place] [address]- 9519 Dec, [facility] [place] [facility] [address] [id number] [place] [address]- 0746 Dec, [facility] [place] [facility] [address] [id number] [place] [address]- 9427 Dec, [facility] [place] [facility] [address] [id number] [place] [address]- 8850 Dec, [facility] [place] [facility] [address] [id number] [place] [address]- 3649 Dec, [facility] [place] [facility] [address] [id number] [place] [address]- 5930 Dec, [facility] [place] [facility] [address] [id number] [place] [address]- 3080 Nov, [facility] [place] [facility] [address] [id number] [place] [address]- 8055 Nov, [facility] [place] [facility] [address] [id number] [place] [address]- 4186 Oct, [facility] [place] [facility] [address] [id number] [place] [address]- 9449 Oct, [facility] [place] [facility] [address] [id number] [place] [address]- 3521 Sep, [facility] [place] [facility] [address] [id number] [place] [address]- 1503 Sep, [facility] [place] [facility] [address] [id number] [place] [address]- 8835 Sep, [facility] [place] [facility] [address] [id number] [place] [address]- 4321 Sep, [facility] [place] [facility] [address] [id number], [place] [address]- 9511 July, [facility] [place] [facility] [address] [id number] [place] [address]- 8943 July, [facility] [place] [facility] [address] [id number] [place] [address]- 6660 July, [facility] [place] [facility] [address] [id number] [place] [address]- 8859 July, [facility] [place] [facility] [address] [id number] [place] [address]- 7487 Feb, [facility] [address] [id number] [place] [address]- 5497 Feb, [facility] [place] [facility] [address] [id number] [place] 6489 Jan, [facility] [address] [id number] [place] [address]- 0957 Jan, [facility] [place] [facility] [address] [id number] [place] [address]- 4744 Jan, [facility] [address] [id number] [place] [address]- 0607 Jan, [facility] [address] [id number] [place] [address]- 3223 Nov, [facility] [address] [id number] [place] [address]- 5026 Aug, [facility] [address] [id number] [place] [address]- 2585 July, [facility] [address] [id number] [place] [address]- 8454 Jun, [facility] [address] [id number] [place] [address]- 6324 Apr, [facility] [address] [id number] [place] [address]- 2952 Mar, [facility] [place] [facility] [address] [id number] [place] [address]- 9748 Mar, [facility] [place] [facility] [address] [id number] [place] [address]- 2999 Jan, [facility] [place] [facility] [address] [id number] [place] [address]- 4224 Jan, [facility] [address] [id number] [place] [address]- 9854 Jan, [facility] [place] [facility] [address] [id number] [place] [address]- 6549 Jan, [facility] [place] [facility] [address] [id number] [place] [address]- 5587 Dec, [facility] [place] [facility] [address] [id number] [place] [address]- 4816 Dec, [facility] [place] [facility] [address] [id number] [place] [address] 2547 Dec, [facility] [place] [facility] [address] [id number] [place] [address]- 6636 Dec, [facility] [place] [facility] [address] [id number] [place] [address]- 8878 Nov, [facility] [place] [facility] [address] [id number] [place] [address]- 3131 Oct, [facility] [place] [facility] [address] [id number] [place] [address]- 1151 July, [facility] [place] [facility] [address] [id number] [place] [address]- 9438 Mar, [facility] [place] [facility] [address] [id number], [place] [address]- 2147 Jan, [facility] [place] [facility] [address] [id number], [place] [address]- 2957 Jan, [facility] [place] [facility] [address] [id number], [place] [address]- 8911 Dec, [facility] [place] [facility] [address] [id number] [place] [address]- 4957 Dec, [facility] [place] [facility] [address] [id number] [place] [address]- 4122 Dec, [facility] [place] [facility] [address] [id number], [place] [address]- 9579 14 Nov, 2010 [facility] [place] [facility] [address] [id number], [place] [address] 2546 July, [facility] [place] [address] [address]- 5996 14 Jun, 2010 [facility] [place] [address], [place] [address] 2546 May, [facility] [place] [address], [place] [address]- 9976 14 Apr, 2010 [facility] [place] [address] [address]- 8696 10 Apr, 2010 [facility] [place] [address], [place] [address]- 8906 Mar, [facility] [place] [address], [place] [address] 2546 Jan, [facility] [place] [address], [place] [address]- 7096 Dec, [facility] [place] [address], [place] [address]- 8556 Jun, [facility] [place] [address] [id number] [address]- 4701 Jun, IMMUNIZATIONS No Known Immunizations SOCIAL HISTORY Never Assessed REASON FOR VISIT Hydrocodone 03/16 PLAN OF CARE VITAL SIGNS MEDICATIONS Medication Instructions Dosage Frequency Start Date End Date Duration Status Hydrocodone-Acetaminophen 5-325 MG Orally 3 times a day 1 tablet 8h Feb 28 days Active RESULTS No Results PROCEDURES No Known procedures INSTRUCTIONS MEDICATIONS ADMINISTERED No Known Medications MEDICAL (GENERAL) HISTORY Type Description Date Medical History prostatism Medical History chronic pain Medical History hypertension
--- OUTSIDE RECORDS SUMMARY | 2018-01-12 12:36 | XMS REPORT ---
Author Author RONAL CAMARGO Organization [employer] Address Unknown Phone Unavailable Care Team Providers Care Inspector Multifocal Lens Name Role Phone RONAL CAMARGO CP Unavailable [...] Start Date End Date Status Dosage Hydrocodone-Acetaminophen [facility] [address]-44 5-325 MG Orally 3 times a day May 31, 2014 1 tablet as needed Results No Known Results Summary Purpose [employer] Submission
--- OUTSIDE RECORDS SUMMARY | 2018-01-12 12:36 | XMS REPORT ---
Author Author RONAL CAMARGO [facility] Address [address] [place] [address] Care Team Providers Care Lens Grinder And Polisher Name Role Phone RONAL CAMARGO Unavailable PROBLEMS Type Condition ICD9-CM Code FWA73-CT Code Onset Dates Condition Status SNOMED Code Problem Pure hypercholesterolemia E78.00 Active 090947638 Problem Urge incontinence of urine N39.41 Active 36374310 Problem Hypertension I10 Active 88485740 Problem Back pain M54.9 Active 587491227 Problem [place] L84 Active 291244633 Problem Arthritis M19.90 Active 2746549 ALLERGIES Unknown Allergies SOCIAL HISTORY No smoking Hx information available PLAN OF CARE VITAL SIGNS MEDICATIONS Medication Instructions Dosage Frequency Start Date End Date Duration Status Hydrocodone-Acetaminophen 5-325 MG Orally, 3 times a day 1 tablet 8h Feb Active RESULTS No Results PROCEDURES No Known procedures IMMUNIZATIONS No Known Immunizations
--- OUTSIDE RECORDS SUMMARY | 2018-01-12 12:36 | XMS REPORT ---
Author Author RONAL CAMARGO Organization [employer] Address Unknown Phone Unavailable Care Team Providers Care Irrigator Sprinkling System Name Role Phone RONAL CAMARGO CP Unavailable [...] Start Date End Date Status Dosage Hydrocodone-Acetaminophen [facility] [id number] 5-325 MG Orally, 3 times a day 1 tablet Results No Known Results Summary Purpose [employer] Submission
--- OUTSIDE RECORDS SUMMARY | 2018-01-12 12:36 | XMS REPORT ---
Author Author RONAL CAMARGO Organization [facility] Address [address] [place] [address] Care Team Providers Care Container Crane Operator Name Role Phone RONAL CAMARGO Unavailable PROBLEMS Type Condition ICD9-CM Code [id number] Code Onset Dates Condition Status SNOMED Code Problem Arthritis M19.90 Active 3433588 Problem Back pain M54.9 Active 434398297 Problem Prostatism N40.0 Active 91216602 Problem Other chronic pain G89.29 Active 99012494 Problem Urge incontinence of urine N39.41 Active 09028229 Problem Hypertension I10 Active 69281600 Problem Pure hypercholesterolemia E78.00 Active 178365485 Problem Nebo L84 Active 261020714 ALLERGIES No Information ENCOUNTERS Encounter Location Date Diagnosis [facility] [id number] [place] [address] 68171- 8029 July, [facility] [address] 03145- 1255 Jun, Other chronic pain G89.29 [facility] [id number] [place] [address] 13489- 6453 May, Other chronic pain G89.29 [facility] [id number] [place] [address] 82884- 0555 Apr, Other chronic pain G89.29 [facility] [id number] [place] [address] 16774- 3247 Mar, Other chronic pain G89.29 [facility] [address] 66662- 6451 Feb, Other chronic pain G89.29 [facility] [address] [address]127 -[address]26 Feb, Acute upper respiratory infection, unspecified J06.9 and Other viral agents as the cause of diseases classified elsewhere B97.89 [facility] [id number] [place] [address] 24947- 6937 Jan, [facility] [id number] [place] [address] 95709- 9590 Jan, Back pain M54.9 and Prostatism N40.0 [facility] [id number] [place] [address] 88979- 4938 Jan, Other chronic pain G89.29 [facility] [id number] [place] [address] 74953- 0295 Dec, [facility] [id number] [place] [address] 23342- 0784 Dec, Other chronic pain G89.29 [facility] [address] 33463- 0225 Nov, Other chronic pain G89.29 [facility] [id number] [place] [address] 98812- 5469 Nov, Encounter for immunization Z23 [facility] [id number] [place] [address] 02661- 2857 Nov, Other chronic pain G89.29 [facility] [id number] [place] [address] 08192- 2464 Oct, Other chronic pain G89.29 [facility] [id number] [place] [address] 20592- 0298 Oct, Back pain M54.9 [facility] [id number] [place] [address] 55672- 4414 Sep, Back pain M54.9 [facility] [id number] [place] [address] 04094- 9889 Aug, [facility] [address] 31753- 2658 Aug, Back pain M54.9 [facility] [address] 97706- 0481 July, Back pain M54.9 [facility] [address] 07203- 5327 24 Jun, 2016 Weight loss R63.4 and Postural hypotension I95.1 [facility] [address] 33587- 8041 14 Jun, 2016 Back pain M54.9 [facility] [address] 62984- 0206 May, Back pain M54.9 [facility] [address] 59058- 0113 17 Apr, 2016 Back pain M54.9 [facility] [address] 64279- 2486 17 Apr, 2016 Pure hypercholesterolemia E78.00 [facility] [address] 22829- 6484 06 Apr, 2016 Hypertension I10 ; Back pain M54.9 ; Urge incontinence of urine N39.41 and Nebo L84 [facility] [address] 54706- 0392 Mar, [facility] [address] 47665- 5294 Mar, Other chronic pain G89.29 [facility] [address] 83645- 1309 Feb, [facility] [address] 59512- 3524 Jan, [facility] [address] 29531- 9043 28 Dec, 2015 [facility] [address] 18246- 2735 28 Nov, 2015 [facility] [id number] [place] [address] 14718- 2518 05 Oct, 2015 [facility] [id number] [place] [address] 21040- 8308 Sep, Back pain M54.9 [facility] [id number] [place] [address] 29187- 0632 17 Aug, 2015 Back pain M54.9 and Hypertension I10 [facility] [address] [facility] [id number] [place] [address] 05624 -7376 13 Aug, 2015 Low back pain M54.5 and Other chronic pain G89.29 [facility] [id number] [place] [address] 72777- 3936 10 Aug, 2015 Back pain M54.9 [facility] [id number] [place] [address] 09592- 1715 July, Back pain M54.9 [facility] [id number] [place] [address] 58737- 4108 Jun, Back pain M54.9 [facility] [id number] [place] [address] 36940- 4134 May, Back pain M54.9 [facility] [id number] [place] [address] 06608- 4777 Apr, Back pain M54.9 [facility] [id number] [place] [address] 84943- 6867 Mar, Back pain M54.9 [facility] [id number] [place] [address] 68760- 6928 Feb, Prostatitis N41.9 ; Arthritis M19.90 and Hypertension I10 [facility] [id number] [place] [address] 97464- 4814 15 Feb, 2015 [facility] [address] 40613- 1060 Jan, [facility] [id number] [place] [address] 73152- 8230 Dec, Encounter for immunization Z23 [facility] [id number] [place] [address] 740945- 6365 Dec, [place] [id number] [place] [address] 72277- 6540 Dec, Eye pain H57.10 [place] [address] 92030- 2256 Dec, Contusion of left leg S80.12XA and Right shoulder injury S49.91XA [place] [id number] [place] [address] 55390- 8041 Dec, Cellulitis L03.90 ; Back pain M54.9 ; Urinary incontinence R32 and Need for omnyzmseat-ukzrrgx-ubthlgqmk (Tdap) vaccine Z23 [place] [id number] [place] [address] 19459- 3760 Nov, Need for prophylactic vaccination with tetanus-diphtheria ( TD) V06.5 [place] [id number] [place] [address] 83937- 2829 Nov, [place] [id number] [place] [address] 45170- 0165 Oct, [place] [id number] [place] [address] 74630- 1228 Sep, [facility] [id number] [place] [address] 47212- 7453 Sep, [facility] [id number] [place] [address] 661313- 1922 Aug, [facility] [id number] [place] [address] 06316- 3492 July, [facility] [id number] [place] [address] 65215- 2945 July, [facility] [place] [facility] [address] [id number] [place] [address]- 5931 Jun, [facility] [place] [facility] [address] [id number] [place] [address]- 4437 Jun, [facility] [place] [facility] [address] [id number] [place] [address]- 8552 May, [facility] [place] [facility] [address] [id number] [place] [address]- 0685 May, [facility] [place] [facility] [address] [id number] [place] [address]- 1581 Apr, [facility] [place] [facility] [address] [id number] [place] [address]- 1418 Apr, [facility] [place] [facility] [address] [id number] [place] [address]- 5686 Mar, [facility] [place] [facility] [address] [id number] [place] [address]- 7985 Mar, [facility] [place] [facility] [address] [id number] [place] [address]- 6608 Mar, [facility] [place] [facility] [address] [id number] [place] [address]- 7471 Mar, [facility] [place] [facility] [address] [id number] [place] [address]- 1935 Mar, [facility] [place] [facility] [address] [id number] [place] [address]- 0779 Mar, [facility] [place] [facility] [address] [id number] [place] [address]- 2285 Mar, [facility] [place] [facility] [address] [id number] [place] [address]- 6358 Mar, [facility] [place] [facility] [address] [id number] [place] [address]- 7091 Mar, [facility] [place] [facility] [address] [id number] [place] [address]- 0081 Mar, [facility] [address] [id number] [place] [address]- 3610 Mar, [facility] [place] [facility] [address] [id number] [place] [address]- 2315 Mar, [facility] [address] [id number] [place] [address]- 6608 Mar, [facility] [place] [facility] [address] [id number] [place] [address]- 4310 Mar, [facility] [address] [id number] [place] [address]- 4758 Feb, [facility] [place] [facility] [address] [id number] [place] [address]- 8328 Feb, [facility] [address] [id number] [place] [address]- 6639 Feb, [facility] [place] [facility] [address] [id number] [place] [address]- 9026 Feb, [facility] [place] [facility] [address] [id number] [place] [address]- 6896 Feb, [facility] [place] [facility] [address] [id number] [place] [address]- 7608 Feb, [facility] [place] [facility] [address] [id number] [place] [address]- 7418 Jan, [facility] [place] [facility] [address] [id number] [place] [address]- 9860 Jan, [facility] [place] [facility] [address] [id number] [place] [address]- 3560 Dec, [facility] [place] [facility] [address] [id number] [place] [address] Dec, [facility] [place] [facility] [address] [id number] [place] [address]- 9166 Dec, [facility] [place] [facility] [address] [id number] [place] [address]- 9600 Dec, [facility] [place] [facility] [address] [id number] [place] [address]- 2123 Dec, [facility] [place] [facility] [address] [id number] [place] [address]- 5807 Dec, [facility] [place] [facility] [address] [id number] [place] [address]- 2376 Nov, [facility] [place] [facility] [address] [id number] [place] [address]- 5493 Nov, [facility] [place] [facility] [address] [id number] [place] [address]- 6365 Oct, [facility] [place] [facility] [address] [id number] [place] [address]- 9326 Oct, [facility] [place] [facility] [address] [id number] [place] [address]- 9576 Sep, [facility] [place] [facility] [address] [id number] [place] [address]- 6274 Sep, [facility] [place] [facility] [address] [id number] [place] [address]- 7233 Sep, [facility] [place] [facility] [address] [id number] [place] [address]- 9026 Sep, [facility] [place] [facility] [address] [id number] [place] [address]- 9960 July, [facility] [place] [facility] [address] [id number] [place] [address]- 2296 July, [facility] [place] [facility] [address] [id number] [place] [address]- 1472 July, [facility] [place] [facility] [address] [id number] [place] [address]- 9141 July, [facility] [place] [facility] [address] [id number] [address]- 0310 Feb, [facility] [address] [id number] [place] [address]- 2898 Feb, [facility] [place] [facility] [address] [id number] [address]- 7687 Jan, [facility] [place] [facility] [address] [facility] [id number] [place] [address]- 9707 Jan, [facility] [place] [facility] [address] [id number] [place] [address]- 6040 Jan, [facility] [place] [facility] [address] [id number] [place] [address]- 9598 Jan, [facility] [place] [facility] [address] [id number] [place] [address]- 3373 Nov, [facility] [address] [id number] [address]- 2048 Aug, [facility] [place] [facility] [address] [id number] [place] [address]- 2450 July, [facility] [address] [id number] [place] [address]- 6303 Jun, [facility] [place] [facility] [address] [facility] [id number] [place] [address]- 0794 Apr, [facility] [place] [facility] [address] [id number] [address]- 6370 Mar, [facility] [place] [facility] [address] [id number] [place] [address]- 6067 Mar, [facility] [place] [facility] [address] [id number] [place] [address]- 9906 Jan, [facility] [place] [facility] [address] [id number] [place] [address]- 5349 Jan, [facility] [place] [facility] [address] [facility] [id number] [place] [address]- 1011 Jan, [facility] [place] [facility] [address] [id number] [place] [address] 2541 Jan, [facility] [place] [facility] [address] [id number] [place] [address]- 8112 Dec, [facility] [place] [facility] [address] [id number] [place] [address]- 2546 Dec, [facility] [place] [facility] [address] [id number] [place] [address]- 2152 Dec, [facility] [place] [facility] [address] [id number] [place] [address]- 2558 Dec, [facility] [place] [facility] [address] [id number] [place] [address]- 5393 Nov, [facility] [place] [facility] [address] [id number] [place] [address]- 5823 Oct, [facility] [place] [facility] [address] [id number] [place] [address]- 4441 July, [facility] [place] [facility] [address] [id number] [place] [address]- 0269 Mar, [facility] [place] [facility] [address] [id number] [place] [address]- 4908 Jan, [facility] [place] [facility] [address] [id number] [place] [address]- 8456 Jan, [facility] [place] [facility] [address] [id number] [place] [address]- 7852 Dec, [facility] [place] [facility] [address] [id number] [place] [address]- 2479 Dec, [facility] [place] [facility] [address] [id number] [place] [address]- 0805 Dec, [facility] [place] [facility] [address] [id number] [place] [address]- 2546 Nov, [facility] [place] [facility] [address] [id number] [place] [address]- 3122 July, [facility] [address] [facility] [id number] [address]- 9506 14 Jun, 2010 [facility] [address] [facility] [id number] [place] [address]- 2546 May, [facility] [address] [id number] [address] 2546 14 Apr, 2010 [facility] [address] [address] 2546 Apr, [facility] [address] [address] 2542 Mar, [facility] [address] [address] 2546 Jan, [facility] [address] [address]- 3166 Dec, [facility] [address] [address]- 4806 Jun, [facility] [address] [id number] [address]- 0898 Jun, IMMUNIZATIONS No Known Immunizations SOCIAL HISTORY Never Assessed REASON FOR VISIT Hydrocodone- 12/22 PLAN OF CARE VITAL SIGNS MEDICATIONS Medication [...]
--- OUTSIDE RECORDS SUMMARY | 2018-01-12 12:36 | XMS REPORT ---
Author Author RONAL CAMARGO [facility] Address [address] [place] [address] Care Team Providers Care Taker Down Name Role Phone RONAL CAMARGO Unavailable PROBLEMS Type Condition ICD9-CM Code [id number] Code Onset Dates Condition Status SNOMED Code Problem Back pain M54.9 Active 682874144 Problem Other chronic pain G89.29 Active 75058218 Problem Pure hypercholesterolemia E78.00 Active 972282079 Problem Hypertension I10 Active 14541261 Problem Arthritis M19.90 Active 6462196 Problem [place] L84 Active 165352112 Problem Urge incontinence of urine N39.41 Active 69778607 ALLERGIES Unknown Allergies SOCIAL HISTORY No smoking Hx information available PLAN OF CARE VITAL SIGNS MEDICATIONS Unknown Medications RESULTS No Results PROCEDURES No Known procedures IMMUNIZATIONS No Known Immunizations
--- OUTSIDE RECORDS SUMMARY | 2018-01-12 12:36 | XMS REPORT ---
Author Author RONAL CAMARGO [facility] [employer] Address Unknown Phone Unavailable Care Team Providers Care Vp Scientific Affairs Name Role Phone RONAL CAMARGO CP Unavailable [...] Status Dosage Hydrocodone-Acetaminophen [facility] [address]-01 5-325 MG Orally 3 times a day May 31, 2014 1 tablet as needed Results No Known Results Summary Purpose [employer] Submission
--- OUTSIDE RECORDS SUMMARY | 2018-01-12 12:36 | XMS REPORT ---
Author Author RONAL CAMARGO Organization [employer] Address Unknown Phone Unavailable Care Team Providers Care Bradley Linebacker Crewmember Name Role Phone RONAL CAMARGO CP Unavailable [...] Start Date End Date Status Dosage Hydrocodone-Acetaminophen [facility] [address]-12 5-325 MG Orally 3 times a day May 31, 2014 1 tablet as needed Results No Known Results Summary Purpose [employer] Submission
[2018-01-12 12:37] LABS: BASOPHILS % (AUTO) 0 % (0-10); EOSINOPHILS % (AUTO) 1 % (0-10); HEMATOCRIT 51 % (40-54); HEMOGLOBIN 16.8 G/DL (13.3-17.7); LYMPHOCYTES # (AUTO) 0.6 X 10^3 (1.0-4.0); LYMPHOCYTES % (AUTO) 10 % (12-44); MEAN CORPUSCULAR HEMOGLOBIN 29 PG (25-34); MEAN CORPUSCULAR HGB CONC 33 G/DL (32-36); MEAN CORPUSCULAR VOLUME 89 FL (80-99); MEAN PLATELET VOLUME 9.6 FL (7.4-10.4); MONOCYTES # (AUTO) 0.8 X 10^3 (0.0-1.0); MONOCYTES % (AUTO) 12 % (0-12); NEUTROPHILS # (AUTO) 5.1 X 10^3 (1.8-7.8); NEUTROPHILS % (AUTO) 78 % (42-75); PLATELET COUNT 170 10^3/uL (130-400); RED BLOOD COUNT 5.77 10^6/uL (4.35-5.85); RED CELL DISTRIBUTION WIDTH 15.6 % (10.0-14.5); WHITE BLOOD COUNT 6.6 10^3/uL (4.3-11.0)
--- OUTSIDE RECORDS SUMMARY | 2018-01-12 12:37 | XMS REPORT ---
Author Author RONAL CAMARGO [facility] Address [address] [place] [address] Care Team Providers Care Carrier Operator Name Role Phone RONAL CAMARGO Unavailable PROBLEMS Type Condition ICD9-CM Code [id number] Code Onset Dates Condition Status SNOMED Code Problem Back pain M54.9 Active 495979074 Problem Other chronic pain G89.29 Active 94033883 Problem Pure hypercholesterolemia E78.00 Active 098767413 Problem Hypertension I10 Active 81873109 Problem Arthritis M19.90 Active 1550009 Problem [place] L84 Active 606860219 Problem Urge incontinence of urine N39.41 Active 53120706 ALLERGIES No Known Allergies SOCIAL HISTORY Never Assessed PLAN OF CARE Activity Details Follow Up 3 Months Reason: VITAL SIGNS Height 66 in 2016-04-28 Weight 171.1 lbs 2016-04-28 Temperature 99.1 degrees Fahrenheit 2016-04-28 Heart Rate 80 bpm 2016-04-28 Respiratory Rate 20 2016-04-28 BMI 27.61 kg/m2 2016-04-28 Blood pressure systolic 138 mmHg 2016-04-28 Blood pressure diastolic 86 mmHg 2016-04-28 MEDICATIONS Medication Instructions Dosage Frequency Start Date End Date Duration Status Hydrocodone-Acetaminophen 5-325 MG Orally, must be seen for more refills 3 times a day 1 tablet 8h Mar, Active Lisinopril-Hydrochlorothiazide 20-25 MG TAKE ONE TABLET BY MOUTH DAILY 30 Active Finasteride 5 mg Orally Once a day 1 tablet 24h Active RESULTS Name Result Date Reference Range LIPID PANEL 2016-04-28 Cholesterol, Total 190 100-199 Triglycerides 146 0-149 HDL Cholesterol 61 >39 VLDL Cholesterol Bao 29 5-40 LDL Cholesterol Calc 100 0-99 Comment: CMP 2016-04-28 Glucose, Serum 95 65-99 BUN 33 8-27 Creatinine, Serum 1.49 0.76-1.27 eGFR If NonAfricn Am 46 >59 eGFR If Africn Am 53 >59 BUN/Creatinine Ratio 22 10-22 Sodium, Serum 137 134-144 Potassium, Serum 4.6 3.5-5.2 Chloride, Serum 97 96-106 Carbon Dioxide, Total 26 18-29 Calcium, Serum 9.2 8.6-10.2 Protein, Total, Serum 6.5 6.0-8.5 Albumin, Serum 4.4 3.5-4.8 Globulin, Total 2.1 1.5-4.5 A/G Ratio 2.1 1.1-2.5 Bilirubin, Total 0.7 0.0-1.2 Alkaline Phosphatase, S 80 39-117 AST (SGOT) 13 0-40 ALT (SGPT) 11 0-44 PROCEDURES Procedure Date Ordered Result [facility] VENIP[facility], ROUTINE* Apr 28, 2016 [facility] VISIT ESTABLISHED PATIENT Apr 28, 2016 IMMUNIZATIONS No Known Immunizations MEDICAL (GENERAL) HISTORY Type Description Date Medical History prostatism Medical History chronic pain Medical History hypertension
--- OUTSIDE RECORDS SUMMARY | 2018-01-12 12:37 | XMS REPORT ---
Author Author MITZI TUTTLE Organization [facility] Address [address] [place] [address] Care Team Providers Care Muck Operator Name Role Phone MITZI TUTTLE Unavailable PROBLEMS Type Condition ICD9-CM Code VRL16-AQ Code Onset Dates Condition Status SNOMED Code Problem Back pain M54.9 Active 375256266 Problem Other chronic pain G89.29 Active 13878315 Problem Pure hypercholesterolemia E78.00 Active 911372897 Problem Hypertension I10 Active 17089666 Problem Arthritis M19.90 Active 1175372 Problem [place] L84 Active 300851534 Problem Urge incontinence of urine N39.41 Active 88880195 ALLERGIES Unknown Allergies SOCIAL HISTORY No smoking Hx information available PLAN OF CARE VITAL SIGNS MEDICATIONS Medication Instructions Dosage Frequency Start Date End Date Duration Status Hydrocodone-Acetaminophen 5-325 MG Orally, must be seen for more refills 3 times a day 1 tablet 8h Mar, Active RESULTS No Results PROCEDURES No Known procedures IMMUNIZATIONS No Known Immunizations
--- OUTSIDE RECORDS SUMMARY | 2018-01-12 12:37 | XMS REPORT ---
Author Author RONAL CAMARGO Organization [facility] Address [address] [place] [address] Care Team Providers Care Service Electrician Name Role Phone RONAL CAMARGO Unavailable PROBLEMS Type Condition ICD9-CM Code EEB11-NQ Code Onset Dates Condition Status SNOMED Code Problem Arthritis M19.90 Active 4331131 Problem Back pain M54.9 Active 335235134 Problem Prostatism N40.0 Active 52195899 Problem Other chronic pain G89.29 Active 16131412 Problem Urge incontinence of urine N39.41 Active 74932479 Problem Hypertension I10 Active 27777316 Problem Pure hypercholesterolemia E78.00 Active 527020465 Problem [place] L84 Active 182200078 ALLERGIES No Information ENCOUNTERS Encounter Location Date Diagnosis [facility] [id number] [place] [address] 43231- 0591 May, Other chronic pain G89.29 [facility] [id number] [place] [address] 73772- 0786 15 Apr, 2017 Other chronic pain G89.29 [facility] [id number] [place] [address] 28312- 3415 Mar, Other chronic pain G89.29 [facility] [id number] [place] [address] 65214- 1530 Feb, Other chronic pain G89.29 [facility] [id number] [place] [address] 46840 -0982 Feb, Acute upper respiratory infection, unspecified J06.9 and Other viral agents as the cause of diseases classified elsewhere B97.89 [facility] [id number] [place] [address] 20542- 0353 Jan, [facility] [id number] [place] [address] 23416- 3467 Jan, Back pain M54.9 and Prostatism N40.0 [facility] [id number] [place] [address] 33360- 9165 Jan, Other chronic pain G89.29 [facility] [id number] [place] [address] 72572- 1862 Dec, [facility] [id number] [place] [address] 99244- 3874 Dec, Other chronic pain G89.29 [facility] [id number] [place] [address] 58780- 8181 Nov, Other chronic pain G89.29 [facility] [id number] [place] [address] 33275- 4468 Nov, Encounter for immunization Z23 [facility] [id number] [place] [address] 59970- 8412 Nov, Other chronic pain G89.29 [facility] [id number] [place] [address] 41338- 3985 Oct, Other chronic pain G89.29 [facility] [id number] [place] [address] 29234- 3608 Oct, Back pain M54.9 [facility] [id number] [place] [address] 73498- 8696 Sep, Back pain M54.9 [facility] [id number] [place] [address] 55764- 9880 Aug, [facility] [id number] [place] [address] 59801- 3328 Aug, Back pain M54.9 [facility] [id number] [place] [address] 75586- 9460 July, Back pain M54.9 [facility] [id number] [place] [address] 77047- 6722 24 Jun, 2016 Weight loss R63.4 and Postural hypotension I95.1 [facility] [address] 54158- 2596 14 Jun, 2016 Back pain M54.9 [facility] [id number] [place] [address] 48068- 3958 May, Back pain M54.9 [facility] [address] 56923- 9055 Apr, Back pain M54.9 [facility] [address] 75997- 1686 Apr, Pure hypercholesterolemia E78.00 [facility] [address] 86187- 5332 Apr, Hypertension I10 ; Back pain M54.9 ; Urge incontinence of urine N39.41 and [place] L84 [facility] [id number] [place] [address] 15148- 1463 Mar, [facility] [address] 30067- 5908 Mar, Other chronic pain G89.29 [facility] [address] 70057- 7658 Feb, [facility] [id number] [place] [address] 35161- 1643 Jan, [facility] [id number] [place] [address] 81174- 6113 28 Dec, 2015 [facility] [address] 76627- 8959 28 Nov, 2015 [facility] [id number] [place] [address] 60027- 0967 05 Oct, 2015 [facility] [address] 83181- 1763 Sep, Back pain M54.9 [facility] [id number] [place] [address] 74235- 7980 17 Aug, 2015 Back pain M54.9 and Hypertension I10 [facility] [id number] [place] [address] 23859 -8020 13 Aug, 2015 Low back pain M54.5 and Other chronic pain G89.29 [facility] [address] 92120- 9323 10 Aug, 2015 Back pain M54.9 [facility] [id number] [place] [address] 22415- 8542 July, Back pain M54.9 [facility] [id number] [place] [address] 34650- 6757 06 Jun, 2015 Back pain M54.9 [facility] [address] 07905- 4051 09 May, 2015 Back pain M54.9 [facility] [id number] [place] [address] 97225- 0325 04 Apr, 2015 Back pain M54.9 [facility] [id number] [place] [address] 00568- 1626 Mar, Back pain M54.9 [facility] [id number] [place] [address] 89621- 3194 17 Feb, 2015 Prostatitis N41.9 ; Arthritis M19.90 and Hypertension I10 [facility] [id number] [place] [address] 21045- 3459 15 Feb, 2015 [facility] [address] 50661- 8856 18 Jan, 2015 [facility] [id number] [place] [address] 40689- 1407 26 Dec, 2014 Encounter for immunization Z23 [facility] [address] 60603- 6692 Dec, [facility] [id number] [place] [address] 640937- 5276 Dec, Eye pain H57.10 [facility] [id number] [place] [address] 413051- 2483 Dec, Contusion of left leg S80.12XA and Right shoulder injury S49.91XA [address] [address] 301276- 8219 Dec, Cellulitis L03.90 ; Back pain M54.9 ; Urinary incontinence R32 and Need for yuuyxiocwi-oywgbjp-ywhipkply (Tdap) vaccine Z23 [place] [address] 20204- 6476 Nov, Need for prophylactic vaccination with tetanus-diphtheria ( TD) V06.5 [place] [address] 192735- 5946 Nov, [facility] [id number] [place] [address] 38307- 5329 Oct, [place] [id number] [place] [address] 50470- 5327 Sep, [facility] [id number] [place] [address] 69884- 4374 Sep, [facility] [id number] [place] [address] 52700- 4606 Aug, [facility] [id number] [place] [address] 58641- 5454 July, [facility] [id number] [place] [address] 94310- 7866 July, [facility] [id number] [place] [address] 36533- 2868 Jun, [facility] [id number] [place] [address] 931715- 4310 Jun, [facility] [place] [facility] [address] [id number] [place] [address]- 8207 May, [facility] [place] [facility] [address] [id number] [place] [address]- 6138 May, [facility] [place] [facility] [address] [id number] [place] [address]- 3466 Apr, [facility] [place] [facility] [address] [id number] [place] [address]- 9721 Apr, [facility] [place] [facility] [address] [id number] [place] [address]- 3756 Mar, [facility] [place] [facility] [address] [id number] [place] [address]- 0357 Mar, [facility] [place] [facility] [address] [id number] [place] [address]- 7031 Mar, [facility] [place] [facility] [address] [id number] [place] [address]- 9877 Mar, [facility] [place] [facility] [address] [id number] [place] [address]- 0042 Mar, [facility] [place] [facility] [address] [id number] [place] [address]- 0935 Mar, [facility] [place] [facility] [address] [id number] [place] [address]- 8486 Mar, [facility] [place] [facility] [address] [id number] [place] [address]- 3278 Mar, [facility] [place] [facility] [address] [id number] [place] [address]- 4479 Mar, [facility] [place] [facility] [address] [id number] [place] [address]- 8426 Mar, [facility] [place] [facility] [address] [id number] [place] [address]- 4377 Mar, [facility] [place] [facility] [address] [id number], [place] [address]- 8559 Mar, [facility] [place] [facility] [address] [id number] [place] [address]- 7325 Mar, [facility] [place] [facility] [address] [id number] [place] [address]- 3217 Mar, [facility] [place] [facility] [address] [facility] [id number] [place] [address]- 2562 Feb, [facility] [place] [facility] [address] [id number] [place] [address]- 4855 Feb, [facility] [place] [facility] [address] [id number] [place] [address]- 3945 Feb, [facility] [place] [facility] [address] [id number] [place] [address]- 9114 Feb, [facility] [place] [facility] [address] [facility] [id number] [place] [address]- 2149 Feb, [facility] [place] [facility] [address] [id number] [place] [address]- 7055 Feb, [facility] [place] [facility] [address] [facility] [id number] [place] [address]- 3990 Jan, [facility] [place] [facility] [address] [facility] [id number] [place] [address]- 3098 Jan, [facility] [place] [facility] [address] [id number], [place] [address]- 0625 Dec, [facility] [place] [facility] [address] [id number] [place] [address]- 1732 Dec, [facility] [place] [facility] [address] [id number] [place] [address]- 3270 Dec, [facility] [place] [facility] [address] [facility] [id number] [place] [address]- 7073 Dec, [facility] [place] [facility] [address] [facility] [id number] [place] [address]- 4772 Dec, [facility] [place] [facility] [address] [id number] [place] [address]- 2546 Dec, [facility] [place] [facility] [address] [id number] [place] [address]- 5792 Nov, [facility] [place] [facility] [address] [id number] [place] [address]- 2546 Nov, [facility] [place] [facility] [address] [id number] [place] [address]- 3386 Oct, [facility] [place] [facility] [address] [id number] [place] [address]- 7765 Oct, [facility] [place] [facility] [address] [id number] [place] [address]- 3914 Sep, [facility] [place] [facility] [address] [id number] [place] [address]- 9404 Sep, [facility] [place] [facility] [address] [id number] [place] [address]- 9938 Sep, [facility] [place] [facility] [address] [id number] [place] [address]- 9033 Sep, [facility] [place] [facility] [address] [id number] [place] [address]- 3033 July, [facility] [place] [facility] [address] [id number] [place] [address]- 0100 July, [facility] [place] [facility] [address] [id number] [place] [address]- 4854 July, [facility] [place] [facility] [address] [id number] [place] [address]- 6055 July, [facility] [place] [facility] [address] [id number] [place] [address]- 7046 Feb, [facility] [place] [facility] [address] [id number] [place] [address]- 6186 Feb, [facility] [place] [facility] [address] [id number] [place] [address]- 8427 14 Jan, 2013 [facility] [place] [facility] [address] [id number] [place] [address]- 3013 14 Jan, 2013 [facility] [place] [facility] [address] [id number] [place] [address]- 8879 11 Jan, 2013 [facility] [place] [facility] [address] [id number] [place] [address]- 3170 Jan, [facility] [place] [facility] [address] [id number] [place] [address]- 1416 30 Nov, 2012 [facility] [place] [facility] [address] [id number] [place] [address]- 9580 Aug, [facility] [place] [facility] [address] [id number] [place] [address]- 4898 July, [facility] [place] [facility] [address] [id number] [place] [address]- 7402 Jun, [facility] [place] [facility] [address] [id number] [place] [address]- 0378 Apr, [facility] [place] [facility] [address] [id number] [place] [address]- 4881 Mar, [facility] [place] [facility] [address] [id number] [place] [address]- 0984 Mar, [facility] [place] [facility] [address] [id number], [place] [address]- 1817 Jan, [facility] [place] [facility] [address] [id number], [place] [address]- 8893 Jan, [facility] [place] [facility] [address] [id number] [place] [address]- 0655 Jan, [facility] [place] [facility] [address] [id number], [place] [address]- 6964 02 Jan, 2012 [facility] [place] [facility] [address] [id number] [place] [address]- 3654 18 Dec, 2011 [facility] [place] [facility] [address] [id number] [place] [address]- 1758 18 Dec, 2011 [facility] [place] [facility] [address] [id number] [place] [address]- 2791 Dec, [facility] [place] [facility] [address] [id number] [place] [address]- 0972 Dec, [facility] [place] [facility] [address] [id number] [place] [address]- 8120 Nov, [facility] [place] [facility] [address] [id number] [place] [address] 2543 Oct, [facility] [place] [facility] [address] [id number] [place] [address]- 6340 July, [facility] [place] [facility] [address] [id number] [place] [address] 2546 Mar, [facility] [place] [facility] [address] [id number] [place] [address]- 3570 Jan, [facility] [place] [facility] [address] [id number] [place] [address]- 4449 Jan, [facility] [place] [facility] [address] [id number] [place] [address]- 3078 Dec, [facility] [place] [facility] [address] [id number] [place] [address]- 8396 Dec, [facility] [place] [facility] [address] [id number] [place] [address]- 7954 Dec, [facility] [place] [facility] [address] [id number] [place] [address]- 4003 14 Nov, 2010 [facility] [place] [facility] [address] [id number] [place] [address]- 9755 July, [facility] [place] [facility] [address] [id number] [place] [address]- 9773 Jun, [facility] [place] [facility] [address] [id number] [place] [address]- 2557 May, [facility] [address] [id number] [address]- 9946 14 Apr, 2010 [facility] [address] [id number], [place] [address]- 3966 10 Apr, 2010 [facility] [address] [id number], [place] [address]- 6052 Mar, [facility] [address] [address] 2546 Jan, [facility] [address] [id number], [place] [address]- 2927 Dec, [facility] [address] [id number], [place] [address]- 7896 Jun, [facility] [address] [id number], [place] [address]- 3065 Jun, IMMUNIZATIONS No Known Immunizations SOCIAL HISTORY Never Assessed REASON FOR VISIT Hydrocodone- 10/28 PLAN OF CARE VITAL SIGNS MEDICATIONS Medication [...]
--- OUTSIDE RECORDS SUMMARY | 2018-01-12 12:37 | XMS REPORT ---
Author Author RONAL CAMARGO Organization [employer] Address Unknown Phone Unavailable Care Team Providers Care Drink Box Mechanic Name Role Phone RONAL CAMARGO CP Unavailable [...] Date End Date Status Dosage Hydrocodone-Acetaminophen [facility] [address]-06 5-325 MG Orally 3 times a day May 31, 2014 1 tablet as needed Results No Known Results Summary Purpose [employer] Submission
--- OUTSIDE RECORDS SUMMARY | 2018-01-12 12:38 | XMS REPORT ---
Author Author RONAL CAMARGO Organization [employer] Address Unknown Phone Unavailable Care Team Providers Care Foundry Helper Name Role Phone RONAL CAMARGO CP Unavailable [...] Date End Date Status Dosage Hydrocodone-Acetaminophen [facility] [id number] 5-325 MG Orally, need to be seen for more refills 3 times a day 1 tablet Results No Known Results Summary Purpose [employer] Submission
--- OUTSIDE RECORDS SUMMARY | 2018-01-12 12:39 | XMS REPORT | Continuity of Care Document ---
Author Author [facility] Address Unknown Phone Unavailable Allergies Active Description Code Type Severity Reaction Onset Reported/Identified Relationship to Patient Clinical Status Yes NKANo Known Allergies NKA Miscellaneous Allergy Unknown N/A 05/28/2006 Medications There is no data. Problems Date Dx Coded Attending Type Code Diagnosis Diagnosed By 08/09/2008 RONAL CAMARGO MD 465.9 Upper Respiratory Infection 08/09/2008 RONAL CAMARGO MD 465.9 Upper Respiratory Infection 08/09/2008 465.9 Upper Respiratory Infection 08/09/2008 465.9 Upper Respiratory Infection 08/09/2008 465.9 Upper Respiratory Infection 08/09/2008 BG NAIR DO 465.9 Upper Respiratory Infection 08/09/2008 RONAL CAMARGO MD 465.9 Upper Respiratory Infection 08/09/2008 RONAL CAMARGO MD 465.9 Upper Respiratory Infection 08/09/2008 RONAL CAMARGO MD 465.9 Upper Respiratory Infection 08/09/2008 MISA DPMark, MELISSA 465.9 Upper Respiratory Infection 08/09/2008 MISA HATHAWAY, MELISSA 465.9 Upper Respiratory Infection 08/09/2008 RONAL CAMARGO MD 465.9 Upper Respiratory Infection 08/09/2008 RONAL CAMARGO MD 465.9 Upper Respiratory Infection 08/09/2008 EUGENE SORENSEN DDS 465.9 Upper Respiratory Infection 08/09/2008 RONAL CAMARGO MD 465.9 Upper Respiratory Infection 08/09/2008 JORGE SAGGER PREPARER, ANA ROSA R 465.9 Upper Respiratory Infection 08/09/2008 RONAL CAMARGO MD 465.9 Upper Respiratory Infection 08/09/2008 EUGENE SORENSEN DDS 465.9 Upper Respiratory Infection 11/01/2008 RONAL CAMARGO MD 296.33 Mo 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 11/01/2008 RONAL CAMARGO MD 296.33 Mo 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 11/01/2008 296.33 Mo 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 11/01/2008 296.33 Mo 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 11/01/2008 296.33 Mo 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 11/01/2008 BG NAIR DO 296.33 Mo 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 11/01/2008 RONAL CAMARGO MD 296.33 Mo 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 11/01/2008 RONAL CAMARGO MD 296.33 Mo 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 11/01/2008 RONAL CAMARGO MD 296.33 Mo 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 11/01/2008 MISA DPM, MELISSA 296.33 Mo 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 11/01/2008 MISA DPM, MELISSA 296.33 Mo 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 11/01/2008 RONAL CAMARGO MD 296.33 Mo 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 11/01/2008 RONAL CAMARGO MD 296.33 Mo 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 11/01/2008 FRANCHESCA WILLIS, EUGENE Paz 296.33 Mo 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 11/01/2008 RONAL CAMARGO MD 296.33 Mo 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 11/01/2008 JORGE SAGGER PREPARER, ANA ROSA R 296.33 Mo 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 11/01/2008 RONAL CAMARGO MD 296.33 Mo 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 11/01/2008 FRANCHESCA WILLIS, EUGENE Paz 296.33 Mo 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 03/30/2009 RONAL CAMARGO MD 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, Unspecified, Site Unspecified 03/30/2009 RONAL CAMARGO MD 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, Unspecified, Site Unspecified 03/30/2009 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, Unspecified, Site Unspecified 03/30/2009 Daniel6.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, Unspecified, Site Unspecified 03/30/2009 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, Unspecified, Site Unspecified 03/30/2009 BG NAIR DO 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, Unspecified, Site Unspecified 03/30/2009 RONAL CAMARGO MD 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, Unspecified, Site Unspecified 03/30/2009 HUERTER MD, RONAL 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, Unspecified, Site Unspecified 03/30/2009 RAMAN FLOYD, RONAL 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, Unspecified, Site Unspecified 03/30/2009 MISA DPM, MELISSA 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, Unspecified, Site Unspecified 03/30/2009 MISA DPM, MELISSA 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, Unspecified, Site Unspecified 03/30/2009 RAMAN FLOYD, RONAL 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, Unspecified, Site Unspecified 03/30/2009 RAMAN FLOYD, RONAL 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, Unspecified, Site Unspecified 03/30/2009 FRANCHESCA WILLIS, EUGENE Paz 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, Unspecified, Site Unspecified 03/30/2009 RAMAN FLOYD, RONAL 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, Unspecified, Site Unspecified 03/30/2009 JORGE SAGGER PREPARER, ANA ROSA R 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, Unspecified, Site Unspecified 03/30/2009 RONAL CAMARGO MD 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, Unspecified, Site Unspecified 03/30/2009 FRANCHESCA WILLIS, EUGENE Paz 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, Unspecified, Site Unspecified 06/21/2009 RONAL CAMARGO MD 401.1 HYPERTENSION, BENIGN ESSENTIAL 06/21/2009 RONAL CAMARGO MD 707.10 Ulcer Of Lower Limb, Unspecified 06/21/2009 RONAL CAMARGO MD 401.1 HYPERTENSION, BENIGN ESSENTIAL 06/21/2009 RONAL CAMARGO MD 707.10 Ulcer Of Lower Limb, Unspecified 06/21/2009 401.1 HYPERTENSION, BENIGN ESSENTIAL 06/21/2009 707.10 Ulcer Of Lower Limb, Unspecified 06/21/2009 401.1 HYPERTENSION, BENIGN ESSENTIAL 06/21/2009 707.10 Ulcer Of Lower Limb, Unspecified 06/21/2009 401.1 HYPERTENSION, BENIGN ESSENTIAL 06/21/2009 707.10 Ulcer Of Lower Limb, Unspecified 06/21/2009 BG NAIR DO 401.1 HYPERTENSION, BENIGN ESSENTIAL 06/21/2009 BG NAIR DO 707.10 Ulcer Of Lower Limb, Unspecified 06/21/2009 RONAL CAMARGO MD 401.1 HYPERTENSION, BENIGN ESSENTIAL 06/21/2009 RONAL CAMARGO MD 707.10 Ulcer Of Lower Limb, Unspecified 06/21/2009 RAMAN FLOYD, RONAL 401.1 HYPERTENSION, BENIGN ESSENTIAL 06/21/2009 RAMAN FLOYD, RONAL 707.10 Ulcer Of Lower Limb, Unspecified 06/21/2009 RAMAN FLOYD, RONAL 401.1 HYPERTENSION, BENIGN ESSENTIAL 06/21/2009 RAMAN FLOYD, RONAL 707.10 Ulcer Of Lower Limb, Unspecified 06/21/2009 MISA DPM, MELISSA 401.1 HYPERTENSION, BENIGN ESSENTIAL 06/21/2009 MISA DPM, MELISSA 707.10 Ulcer Of Lower Limb, Unspecified 06/21/2009 MISA DPM, MELISSA 401.1 HYPERTENSION, BENIGN ESSENTIAL 06/21/2009 MISA DPM, MELISSA 707.10 Ulcer Of Lower Limb, Unspecified 06/21/2009 RONAL CAMARGO MD 401.1 HYPERTENSION, BENIGN ESSENTIAL 06/21/2009 RAMAN FLOYD, RONAL 707.10 Ulcer Of Lower Limb, Unspecified 06/21/2009 RONAL CAMARGO MD 401.1 HYPERTENSION, BENIGN ESSENTIAL 06/21/2009 RAMAN FLOYD, RONAL 707.10 Ulcer Of Lower Limb, Unspecified 06/21/2009 FRANCHESCA WILLIS, EUGENE Paz 401.1 HYPERTENSION, BENIGN ESSENTIAL 06/21/2009 FRANCHESCA WILLIS, EUGENE Paz 707.10 Ulcer Of Lower Limb, Unspecified 06/21/2009 RONAL CAMARGO MD 401.1 HYPERTENSION, BENIGN ESSENTIAL 06/21/2009 RAMAN FLOYD, RONAL 707.10 Ulcer Of Lower Limb, Unspecified 06/21/2009 ANA ROSA PATEL APRN R 401.1 HYPERTENSION, BENIGN ESSENTIAL 06/21/2009 ANA ROSA PATEL APRN R 707.10 Ulcer Of Lower Limb, Unspecified 06/21/2009 RONAL CAMARGO MD 401.1 HYPERTENSION, BENIGN ESSENTIAL 06/21/2009 RONAL CAMARGO MD 707.10 Ulcer Of Lower Limb, Unspecified 06/21/2009 FRANCHESCA WILLIS, EUGENE Paz 401.1 HYPERTENSION, BENIGN ESSENTIAL 06/21/2009 FRANCHESCA WILLIS, EUGENE Paz 707.10 Ulcer Of Lower Limb, Unspecified 07/03/2009 RONAL CAMARGO MD 724.3 Sciatica 07/03/2009 RONAL CAMARGO MD 724.3 Sciatica 07/03/2009 724.3 Sciatica 07/03/2009 724.3 Sciatica 07/03/2009 724.3 Sciatica 07/03/2009 BG NAIR DO K 724.3 Sciatica 07/03/2009 RAMAN FLOYD, RONAL 724.3 Sciatica 07/03/2009 RAMAN FLOYD, RONAL 724.3 Sciatica 07/03/2009 RAMAN FLOYD, RONAL 724.3 Sciatica 07/03/2009 MISA DPM, MELISSA 724.3 Sciatica 07/03/2009 MISA DPMark, MELISSA 724.3 Sciatica 07/03/2009 RAMAN FLOYD, RONAL 724.3 Sciatica 07/03/2009 RAMAN FLOYD, RONAL 724.3 Sciatica 07/03/2009 FRANCHESCA WILLIS, EUGENE Paz 724.3 Sciatica 07/03/2009 RAMAN FLOYD, RONAL 724.3 Sciatica 07/03/2009 JORGE LUCERO, ANA ROSA R 724.3 Sciatica 07/03/2009 RAMAN FLOYD, RONAL 724.3 Sciatica 07/03/2009 FRANCHESCA WILLIS, EUGENE Paz 724.3 Sciatica 07/06/2009 RONAL CAMARGO MD 110.1 Onychomycosis 07/06/2009 RONAL CAMARGO MD 356.9 Neuropathy 07/06/2009 RONAL CAMARGO MD 703.8 Onychocryptosis 07/06/2009 RONAL CAMARGO MD 110.1 Onychomycosis 07/06/2009 RONAL CAMARGO MD 356.9 Neuropathy 07/06/2009 RONAL CAMARGO MD 703.8 Onychocryptosis 07/06/2009 110.1 Onychomycosis 07/06/2009 356.9 Neuropathy 07/06/2009 703.8 Onychocryptosis 07/06/2009 110.1 Onychomycosis 07/06/2009 356.9 Neuropathy 07/06/2009 703.8 Onychocryptosis 07/06/2009 110.1 Onychomycosis 07/06/2009 356.9 Neuropathy 07/06/2009 703.8 Onychocryptosis 07/06/2009 NAIR DOBG K 110.1 Onychomycosis 07/06/2009 NAIR DOBG K 356.9 Neuropathy 07/06/2009 BG NAIR DO Rama 703.8 Onychocryptosis 07/06/2009 RAMAN FLOYD, RONAL 110.1 Onychomycosis 07/06/2009 RAMAN FLOYD, RONAL 356.9 Neuropathy 07/06/2009 RAMAN LFOYD, RONAL 703.8 Onychocryptosis 07/06/2009 RAMAN FLOYD, RONAL 110.1 Onychomycosis 07/06/2009 RAMAN FLOYD, RONAL 356.9 Neuropathy 07/06/2009 RAMNA FLOYD, RONAL 703.8 Onychocryptosis 07/06/2009 RAMAN FLOYD, RONAL 110.1 Onychomycosis 07/06/2009 RAMAN FLOYD, RONAL Finley.9 Neuropathy 07/06/2009 RAMAN FLOYD, RONAL 703.8 Onychocryptosis 07/06/2009 MISA DPM, MELISSA 110.1 Onychomycosis 07/06/2009 MISA DPM, MELISSA 356.9 Neuropathy 07/06/2009 MISA DPM, MELISSA 703.8 Onychocryptosis 07/06/2009 MISA DPM, MELISSA 110.1 Onychomycosis 07/06/2009 MISA DPM, MELISSA 356.9 Neuropathy 07/06/2009 MISA DPM, MELISSA 703.8 Onychocryptosis 07/06/2009 RAMAN FLOYD, RONAL 110.1 Onychomycosis 07/06/2009 RAMAN FLOYD, RONAL Finley.9 Neuropathy 07/06/2009 RONAL CAMARGO MD 703.8 Onychocryptosis 07/06/2009 RAMAN FLOYD, RONAL 110.1 Onychomycosis 07/06/2009 RAMAN FLOYD, RONAL 356.9 Neuropathy 07/06/2009 RAMAN FLOYD, RONAL 703.8 Onychocryptosis 07/06/2009 FRANCHESCA SAMSONS, EUGENE Paz 110.1 Onychomycosis 07/06/2009 FRANCHESCA SAMSONS, EUGENE Paz 356.9 Neuropathy 07/06/2009 FRANCHESCA SAMSONS, EUGENE Paz 703.8 Onychocryptosis 07/06/2009 RAMAN FLOYD, RONAL 110.1 Onychomycosis 07/06/2009 RAMAN FLOYD, RONAL 356.9 Neuropathy 07/06/2009 RAMAN FLOYD, RONAL 703.8 Onychocryptosis 07/06/2009 JORGE SAGGER PREPARER, ANA ROSA R 110.1 Onychomycosis 07/06/2009 JORGE SAGGER PREPARER, ANA ROSA R 356.9 Neuropathy 07/06/2009 JORGE SAGGER PREPARER, ANA ROSA R 703.8 Onychocryptosis 07/06/2009 RAMAN FLOYD, RONAL 110.1 Onychomycosis 07/06/2009 RAMAN FLOYD, RONAL 356.9 Neuropathy 07/06/2009 RAMAN FLOYD, RONAL 703.8 Onychocryptosis 07/06/2009 FRANCHESCA SAMSONS, EUGENE Paz 110.1 Onychomycosis 07/06/2009 FRANCHESCA SAMSONS, EUGENE Paz 356.9 Neuropathy 07/06/2009 FRANCHESCA SAMSONS, EUGENE Paz 703.8 Onychocryptosis 09/28/2009 RAMAN FLOYD, RONAL 477.9 Rhinitis 09/28/2009 RAMAN FLOYD, RONAL 477.9 Rhinitis 09/28/2009 477.9 Rhinitis 09/28/2009 477.9 Rhinitis 09/28/2009 477.9 Rhinitis 09/28/2009 BG NAIR DO 477.9 Rhinitis 09/28/2009 RAMAN FLOYD, RONAL 477.9 Rhinitis 09/28/2009 RAMAN FLOYD, RNOAL 477.9 Rhinitis 09/28/2009 RAMAN FLOYD, RONAL 477.9 Rhinitis 09/28/2009 MISA DPM, MELISSA 477.9 Rhinitis 09/28/2009 MISA DPM, MELISSA 477.9 Rhinitis 09/28/2009 RAMAN FLOYD, RONAL 477.9 Rhinitis 09/28/2009 RAMAN FLOYD, RONAL 477.9 Rhinitis 09/28/2009 FRANCHESCA SMASONS, EUGENE Paz 477.9 Rhinitis 09/28/2009 RAMAN FLOYD, RONAL 477.9 Rhinitis 09/28/2009 JORGE LUCERO, ANA ROSA R 477.9 Rhinitis 09/28/2009 RAMAN FLOYD, RONAL 477.9 Rhinitis 09/28/2009 FRANCHESCA SAMSONS, EUGENE Paz 477.9 Rhinitis 04/05/2010 RAMAN FLOYD, RONAL 272.4 HYPERLIPIDEMIA 04/05/2010 RAMAN FLOYD, RONAL 311 DEPRESSIVE DISORDER NOS 04/05/2010 RAMAN FLOYD, RONAL V76.44 Prostate Screening 04/05/2010 RONAL CAMARGO MD 272.4 HYPERLIPIDEMIA 04/05/2010 RONAL CAMARGO MD 311 DEPRESSIVE DISORDER NOS 04/05/2010 RAMAN FLOYD, RONAL V76.44 Prostate Screening 04/05/2010 272.4 HYPERLIPIDEMIA 04/05/2010 311 DEPRESSIVE DISORDER NOS 04/05/2010 V76.44 Prostate Screening 04/05/2010 272.4 HYPERLIPIDEMIA 04/05/2010 311 DEPRESSIVE DISORDER NOS 04/05/2010 V76.44 Prostate Screening 04/05/2010 272.4 HYPERLIPIDEMIA 04/05/2010 311 DEPRESSIVE DISORDER NOS 04/05/2010 V76.44 Prostate Screening 04/05/2010 NAIR DO, BG K 272.4 HYPERLIPIDEMIA 04/05/2010 NAIR DO, BG K 311 DEPRESSIVE DISORDER NOS 04/05/2010 NAIR DO, BG K V76.44 Prostate Screening 04/05/2010 RONAL CAMARGO MD 272.4 HYPERLIPIDEMIA 04/05/2010 RONAL CAMARGO MD 311 DEPRESSIVE DISORDER NOS 04/05/2010 RAMAN FLOYD, RONAL V76.44 Prostate Screening 04/05/2010 RONAL CAMARGO MD 272.4 HYPERLIPIDEMIA 04/05/2010 RONAL CAMARGO MD 311 DEPRESSIVE DISORDER NOS 04/05/2010 RONAL CAMARGO MD V76.44 Prostate Screening 04/05/2010 RONAL CAMARGO MD 272.4 HYPERLIPIDEMIA 04/05/2010 RONAL CAMARGO MD 311 DEPRESSIVE DISORDER NOS 04/05/2010 RONAL CAMARGO MD V76.44 Prostate Screening 04/05/2010 MISA DPM, MELISSA 272.4 HYPERLIPIDEMIA 04/05/2010 MISA DPM, MELISSA 311 DEPRESSIVE DISORDER NOS 04/05/2010 MISA DPM, MELISSA V76.44 Prostate Screening 04/05/2010 MISA DPM, MELISSA 272.4 HYPERLIPIDEMIA 04/05/2010 MISA DPM, MELISSA 311 DEPRESSIVE DISORDER NOS 04/05/2010 MISA DPM, MELISSA V76.44 Prostate Screening 04/05/2010 RONAL CAMARGO MD 272.4 HYPERLIPIDEMIA 04/05/2010 RONAL CAMARGO MD 311 DEPRESSIVE DISORDER NOS 04/05/2010 RONAL CAMARGO MD V76.44 Prostate Screening 04/05/2010 RONAL CAMARGO MD 272.4 HYPERLIPIDEMIA 04/05/2010 RONAL CAMARGO MD 311 DEPRESSIVE DISORDER NOS 04/05/2010 RONAL CAMARGO MD V76.44 Prostate Screening 04/05/2010 FRANCHESCA WILLIS, EUGENE Paz 272.4 HYPERLIPIDEMIA 04/05/2010 FRANCHESCA WILLIS, EUGENE Paz 311 DEPRESSIVE DISORDER NOS 04/05/2010 FRANCHESCA SAMSONS, EUGENE aPz V76.44 Prostate Screening 04/05/2010 RONAL CAMARGO MD 272.4 HYPERLIPIDEMIA 04/05/2010 RONAL CAMARGO MD 311 DEPRESSIVE DISORDER NOS 04/05/2010 RONAL CAMARGO MD V76.44 Prostate Screening 04/05/2010 JORGE SAGGER PREPARER, ANA ROSA R 272.4 HYPERLIPIDEMIA 04/05/2010 JORGE SAGGER PREPARER, ANA ROSA R 311 DEPRESSIVE DISORDER NOS 04/05/2010 JORGE SAGGER PREPARER, ANA ROSA R V76.44 Prostate Screening 04/05/2010 RONAL CAMARGO MD 272.4 HYPERLIPIDEMIA 04/05/2010 RONAL CAMARGO MD 311 DEPRESSIVE DISORDER NOS 04/05/2010 RONAL CAMARGO MD V76.44 Prostate Screening 04/05/2010 FRANCHESCA WILLIS, EUGENE Paz 272.4 HYPERLIPIDEMIA 04/05/2010 FRANCHESCA WILLIS, EUGENE Paz 311 DEPRESSIVE DISORDER NOS 04/05/2010 FRANCHESCA WILLIS, EUGENE Paz V76.44 Prostate Screening 07/05/2010 RONAL CAMARGO MD 703.0 Ingrown Toenail (infection) 07/05/2010 RONAL CAMARGO MD 703.0 Ingrown Toenail (infection) 07/05/2010 703.0 Ingrown Toenail (infection) 07/05/2010 703.0 Ingrown Toenail (infection) 07/05/2010 703.0 Ingrown Toenail (infection) 07/05/2010 BG NAIR DO 703.0 Ingrown Toenail (infection) 07/05/2010 RONAL CAMARGO MD 703.0 Ingrown Toenail (infection) 07/05/2010 RONAL CAMARGO MD 703.0 Ingrown Toenail (infection) 07/05/2010 RONAL CAMARGO MD 703.0 Ingrown Toenail (infection) 07/05/2010 MELISSA HENLEY DPM 703.0 Ingrown Toenail (infection) 07/05/2010 MELISSA HENLEY DPM 703.0 Ingrown Toenail (infection) 07/05/2010 RONAL CAMARGO MD 703.0 Ingrown Toenail (infection) 07/05/2010 RONAL CAMARGO MD 703.0 Ingrown Toenail (infection) 07/05/2010 EUGENE SORENSEN DDS 703.0 Ingrown Toenail (infection) 07/05/2010 RONAL CAMARGO MD 703.0 Ingrown Toenail (infection) 07/05/2010 JORGE SAGGER PREPARER, ANA ROSA Yates 703.0 Ingrown Toenail (infection) 07/05/2010 RONAL CAMARGO MD 703.0 Ingrown Toenail (infection) 07/05/2010 FRANCHESCA WILLIS, EUGENE Paz 703.0 Ingrown Toenail (infection) 08/08/2010 RONAL CAMARGO MD 460 Acute Nasopharyngitis (common Cold) 08/08/2010 RONAL CAMARGO MD 460 Acute Nasopharyngitis (common Cold) 08/08/2010 460 Acute Nasopharyngitis (common Cold) 08/08/2010 460 Acute Nasopharyngitis (common Cold) 08/08/2010 460 Acute Nasopharyngitis (common Cold) 08/08/2010 NAIR BG Ontiveros 460 Acute Nasopharyngitis (common Cold) 08/08/2010 RONAL CAMARGO MD 460 Acute Nasopharyngitis (common Cold) 08/08/2010 RONAL CAMARGO MD 460 Acute Nasopharyngitis (common Cold) 08/08/2010 RONAL CAMARGO MD 460 Acute Nasopharyngitis (common Cold) 08/08/2010 MELISSA HENLEY DPM 460 Acute Nasopharyngitis (common Cold) 08/08/2010 MELISSA HENLEY DPM 460 Acute Nasopharyngitis (common Cold) 08/08/2010 RONAL CAMARGO MD 460 Acute Nasopharyngitis (common Cold) 08/08/2010 RONAL CAMARGO MD 460 Acute Nasopharyngitis (common Cold) 08/08/2010 FRANCHESCA WILLIS, EUGENE Paz 460 Acute Nasopharyngitis (common Cold) 08/08/2010 RONAL CAMARGO MD 460 Acute Nasopharyngitis (common Cold) 08/08/2010 JORGE LUCERO, ANA ROSA R 460 Acute Nasopharyngitis (common Cold) 08/08/2010 RONAL CAMARGO MD 460 Acute Nasopharyngitis (common Cold) 08/08/2010 FRANCHESCA WILLIS, EUGENE Paz 460 Acute Nasopharyngitis (common Cold) 08/23/2010 RONAL CAMARGO MD 783.21 Loss Of Weight 08/23/2010 RONAL CAMARGO MD 783.21 Loss Of Weight 08/23/2010 783.21 Loss Of Weight 08/23/2010 783.21 Loss Of Weight 08/23/2010 783.21 Loss Of Weight 08/23/2010 BG NAIR DO 783.21 Loss Of Weight 08/23/2010 RONAL CAMARGO MD 783.21 Loss Of Weight 08/23/2010 RONAL CAMARGO MD 783.21 Loss Of Weight 08/23/2010 RONAL CAMARGO MD 783.21 Loss Of Weight 08/23/2010 MISA DPM, MELISSA 783.21 Loss Of Weight 08/23/2010 MISA DPM, MELISSA 783.21 Loss Of Weight 08/23/2010 RONAL CAMARGO MD 783.21 Loss Of Weight 08/23/2010 RONAL CAMARGO MD 783.21 Loss Of Weight 08/23/2010 EUGENE SORENSEN DDS 783.21 Loss Of Weight 08/23/2010 RONAL CAMARGO MD 783.21 Loss Of Weight 08/23/2010 ANA ROSA PATEL APRN 783.21 Loss Of Weight 08/23/2010 RONAL CAMARGO MD 783.21 Loss Of Weight 08/23/2010 EUGENE SORENSEN DDS 783.21 Loss Of Weight 12/04/2010 RONAL CAMARGO MD 706.1 Other Acne 12/04/2010 RONAL CAMARGO MD 706.1 Other Acne 12/04/2010 706.1 Other Acne 12/04/2010 706.1 Other Acne 12/04/2010 706.1 Other Acne 12/04/2010 BG NAIR DO 706.1 Other Acne 12/04/2010 RONAL CAMARGO MD 706.1 Other Acne 12/04/2010 RONAL CAMARGO MD 706.1 Other Acne 12/04/2010 RONAL CAMARGO MD 706.1 Other Acne 12/04/2010 MISA DPM, MELISSA 706.1 Other Acne 12/04/2010 MISA DPM, MELISSA 706.1 Other Acne 12/04/2010 RAMAN FLOYD, RONAL 706.1 Other Acne 12/04/2010 RAMAN FLOYD, RONAL 706.1 Other Acne 12/04/2010 FRANCHESCA WILLIS, EUGENE Paz 706.1 Other Acne 12/04/2010 RAMAN FLOYD, RONAL 706.1 Other Acne 12/04/2010 JORGE LUCERO, ANA ROSA R 706.1 Other Acne 12/04/2010 RAMAN FLOYD, RONAL 706.1 Other Acne 12/04/2010 FRANCHESCA WILLIS, EUGENE Paz 706.1 Other Acne 01/06/2011 RONAL CAMARGO MD 847.2 SPRAIN LUMBAR REGION 01/06/2011 RONAL CAMARGO MD 847.2 SPRAIN LUMBAR REGION 01/06/2011 847.2 SPRAIN LUMBAR REGION 01/06/2011 847.2 SPRAIN LUMBAR REGION 01/06/2011 847.2 SPRAIN LUMBAR REGION 01/06/2011 BG NAIR DO 847.2 SPRAIN LUMBAR REGION 01/06/2011 RONAL CAMARGO MD 847.2 SPRAIN LUMBAR REGION 01/06/2011 RONAL CAMARGO MD 847.2 SPRAIN LUMBAR REGION 01/06/2011 RONAL CAMARGO MD 847.2 SPRAIN LUMBAR REGION 01/06/2011 MISA DPM, MELISSA 847.2 SPRAIN LUMBAR REGION 01/06/2011 MISA DPM, MELISSA 847.2 SPRAIN LUMBAR REGION 01/06/2011 RONAL CAMARGO MD 847.2 SPRAIN LUMBAR REGION 01/06/2011 RONAL CAMARGO MD 847.2 SPRAIN LUMBAR REGION 01/06/2011 FRANCHESCA WILLIS, EUGENE Paz 847.2 SPRAIN LUMBAR REGION 01/06/2011 RONAL CAMARGO MD 847.2 SPRAIN LUMBAR REGION 01/06/2011 JORGE LUCERO, ANA ROSA R 847.2 SPRAIN LUMBAR REGION 01/06/2011 RONAL CAMARGO MD 847.2 SPRAIN LUMBAR REGION 01/06/2011 FRANCHESCA WILLIS, EUGENE Paz 847.2 SPRAIN LUMBAR REGION 01/10/2011 RONAL CAMARGO MD 372.30 Conjunctivitis Unspecified 01/10/2011 RONAL CAMARGO MD 372.30 Conjunctivitis Unspecified 01/10/2011 372.30 Conjunctivitis Unspecified 01/10/2011 372.30 Conjunctivitis Unspecified 01/10/2011 372.30 Conjunctivitis Unspecified 01/10/2011 BG NAIR DO 372.30 Conjunctivitis Unspecified 01/10/2011 RONAL CAMARGO MD 372.30 Conjunctivitis Unspecified 01/10/2011 RONAL CAMARGO MD 372.30 Conjunctivitis Unspecified 01/10/2011 RONAL CAMARGO MD 372.30 Conjunctivitis Unspecified 01/10/2011 MISA DPM, MELISSA 372.30 Conjunctivitis Unspecified 01/10/2011 MISA DPM, MELISSA 372.30 Conjunctivitis Unspecified 01/10/2011 RONAL CAMARGO MD 372.30 Conjunctivitis Unspecified 01/10/2011 RONAL CAMARGO MD 372.30 Conjunctivitis Unspecified 01/10/2011 FRANCHESCA WILLIS, EUGENE Paz 372.30 Conjunctivitis Unspecified 01/10/2011 RONAL CAMARGO MD 372.30 Conjunctivitis Unspecified 01/10/2011 JORGE SAGGER PREPARER, AN AROSA R 372.30 Conjunctivitis Unspecified 01/10/2011 RONAL CAMARGO MD 372.30 Conjunctivitis Unspecified 01/10/2011 FRANCHESCA WILLIS, EUGENE Paz 372.30 Conjunctivitis Unspecified 02/06/2011 RONAL CAMARGO MD 372.14 Conjunctivitis Chronic Allergic 02/06/2011 RONAL CAMARGO MD 372.14 Conjunctivitis Chronic Allergic 02/06/2011 372.14 Conjunctivitis Chronic Allergic 02/06/2011 372.14 Conjunctivitis Chronic Allergic 02/06/2011 372.14 Conjunctivitis Chronic Allergic 02/06/2011 BG NAIR DO 372.14 Conjunctivitis Chronic Allergic 02/06/2011 RONAL CAMARGO MD 372.14 Conjunctivitis Chronic Allergic 02/06/2011 RONAL CAMARGO MD 372.14 Conjunctivitis Chronic Allergic 02/06/2011 RONAL CAMARGO MD 372.14 Conjunctivitis Chronic Allergic 02/06/2011 MISA DPM, MELISSA 372.14 Conjunctivitis Chronic Allergic 02/06/2011 MISA DPM, MELISSA 372.14 Conjunctivitis Chronic Allergic 02/06/2011 RONAL CAMARGO MD 372.14 Conjunctivitis Chronic Allergic 02/06/2011 RONAL CAMARGO MD 372.14 Conjunctivitis Chronic Allergic 02/06/2011 EUGENE SORENSEN DDS 372.14 Conjunctivitis Chronic Allergic 02/06/2011 RONAL CAMARGO MD 372.14 Conjunctivitis Chronic Allergic 02/06/2011 ANA ROSA PATEL APRN 372.14 Conjunctivitis Chronic Allergic 02/06/2011 RONAL CAMARGO MD 372.14 Conjunctivitis Chronic Allergic 02/06/2011 EUGENE SORENSEN DDS 372.14 Conjunctivitis Chronic Allergic 03/28/2011 RONAL CAMARGO MD 465.9 UPPER RESPIRATORY INFECTION 03/28/2011 RONAL CAMARGO MD 465.9 UPPER RESPIRATORY INFECTION 03/28/2011 465.9 UPPER RESPIRATORY INFECTION 03/28/2011 465.9 UPPER RESPIRATORY INFECTION 03/28/2011 465.9 UPPER RESPIRATORY INFECTION 03/28/2011 BG NAIR DO 465.9 UPPER RESPIRATORY INFECTION 03/28/2011 RONAL CAMARGO MD 465.9 UPPER RESPIRATORY INFECTION 03/28/2011 RONAL CAMARGO MD 465.9 UPPER RESPIRATORY INFECTION 03/28/2011 RONAL CAMARGO MD 465.9 UPPER RESPIRATORY INFECTION 03/28/2011 MISA DPM, MELISSA 465.9 UPPER RESPIRATORY INFECTION 03/28/2011 MISA DPM, MELISSA 465.9 UPPER RESPIRATORY INFECTION 03/28/2011 RONAL CAMARGO MD 465.9 UPPER RESPIRATORY INFECTION 03/28/2011 RONAL CAMARGO MD 465.9 UPPER RESPIRATORY INFECTION 03/28/2011 FRANCHESCA WILLIS, EUGENE Paz 465.9 UPPER RESPIRATORY INFECTION 03/28/2011 RONAL CAMARGO MD 465.9 UPPER RESPIRATORY INFECTION 03/28/2011 ANA ROSA PATEL APRN 465.9 UPPER RESPIRATORY INFECTION 03/28/2011 RONAL CAMARGO MD 465.9 UPPER RESPIRATORY INFECTION 03/28/2011 EUGENE SORENSEN DDS 465.9 UPPER RESPIRATORY INFECTION 08/14/2011 RONAL CAMARGO MD 917.2 BLISTER OF FOOT AND TOE(S) WITHOUT INFECTION 08/14/2011 RONAL CAMARGO MD 917.2 BLISTER OF FOOT AND TOE(S) WITHOUT INFECTION 08/14/2011 917.2 BLISTER OF FOOT AND TOE(S) WITHOUT INFECTION 08/14/2011 917.2 BLISTER OF FOOT AND TOE(S) WITHOUT INFECTION 08/14/2011 917.2 BLISTER OF FOOT AND TOE(S) WITHOUT INFECTION 08/14/2011 BG NAIR DO 917.2 BLISTER OF FOOT AND TOE(S) WITHOUT INFECTION 08/14/2011 RONAL CAMARGO MD 917.2 BLISTER OF FOOT AND TOE(S) WITHOUT INFECTION 08/14/2011 RONAL CAMARGO MD 917.2 BLISTER OF FOOT AND TOE(S) WITHOUT INFECTION 08/14/2011 RONAL CAMARGO MD 917.2 BLISTER OF FOOT AND TOE(S) WITHOUT INFECTION 08/14/2011 MISA DPM, MELISSA 917.2 BLISTER OF FOOT AND TOE(S) WITHOUT INFECTION 08/14/2011 MISA HATHAWAY, MELISSA 917.2 BLISTER OF FOOT AND TOE(S) WITHOUT INFECTION 08/14/2011 RONAL CAMARGO MD 917.2 BLISTER OF FOOT AND TOE(S) WITHOUT INFECTION 08/14/2011 RONAL CAMARGO MD 917.2 BLISTER OF FOOT AND TOE(S) WITHOUT INFECTION 08/14/2011 FRANCHESCA WILLIS, EUGENE Paz 917.2 BLISTER OF FOOT AND TOE(S) WITHOUT INFECTION 08/14/2011 RAMAN FLOYD, RONAL 917.2 BLISTER OF FOOT AND TOE(S) WITHOUT INFECTION 08/14/2011 ANA ROSA PATEL APRN 917.2 BLISTER OF FOOT AND TOE(S) WITHOUT INFECTION 08/14/2011 RONAL CAMARGO MD 917.2 BLISTER OF FOOT AND TOE(S) WITHOUT INFECTION 08/14/2011 FRANCHESCA WILLIS, EUGENE Paz 917.2 BLISTER OF FOOT AND TOE(S) WITHOUT INFECTION 10/27/2011 RONAL CAMARGO MD 724.5 BACKACHE UNSPECIFIED 10/27/2011 RONAL CAMARGO MD 724.5 BACKACHE UNSPECIFIED 10/27/2011 724.5 BACKACHE UNSPECIFIED 10/27/2011 724.5 BACKACHE UNSPECIFIED 10/27/2011 724.5 BACKACHE UNSPECIFIED 10/27/2011 BG NAIR DO 724.5 BACKACHE UNSPECIFIED 10/27/2011 RONAL CAMARGO MD 724.5 BACKACHE UNSPECIFIED 10/27/2011 RONAL CAMARGO MD 724.5 BACKACHE UNSPECIFIED 10/27/2011 RONAL CAMARGO MD 724.5 BACKACHE UNSPECIFIED 10/27/2011 MISA DPM, MELISSA 724.5 BACKACHE UNSPECIFIED 10/27/2011 MISA DPM, MELISSA 724.5 BACKACHE UNSPECIFIED 10/27/2011 ARMAN FLOYD, RONAL 724.5 BACKACHE UNSPECIFIED 10/27/2011 RAMAN FLOYD, RONAL 724.5 BACKACHE UNSPECIFIED 10/27/2011 FRANCHESCA SAMSONS, EUGENE Paz 724.5 BACKACHE UNSPECIFIED 10/27/2011 RAMAN FLOYD, RONAL 724.5 BACKACHE UNSPECIFIED 10/27/2011 JORGE LUCERO, ANA ROSA R 724.5 BACKACHE UNSPECIFIED 10/27/2011 RAMAN FLOYD, RONAL 724.5 BACKACHE UNSPECIFIED 10/27/2011 FRANCHESCA WILLIS, EUGENE Paz 724.5 BACKACHE UNSPECIFIED 12/25/2011 RAMAN FLOYD, RONAL 239.5 PROSTATE NEOPLASM 12/25/2011 RAMAN FLOYD, RONAL 239.5 PROSTATE NEOPLASM 12/25/2011 239.5 PROSTATE NEOPLASM 12/25/2011 239.5 PROSTATE NEOPLASM 12/25/2011 239.5 PROSTATE NEOPLASM 12/25/2011 BG NAIR DO K 239.5 PROSTATE NEOPLASM 12/25/2011 RAMAN FLOYD, RONAL 239.5 PROSTATE NEOPLASM 12/25/2011 RAMAN FLOYD, RONAL 239.5 PROSTATE NEOPLASM 12/25/2011 RAMAN FLOYD, RONAL 239.5 PROSTATE NEOPLASM 12/25/2011 MISA DPM, MELISSA 239.5 PROSTATE NEOPLASM 12/25/2011 MISA HATHAWAY, MELISSA 239.5 PROSTATE NEOPLASM 12/25/2011 RAMAN FLOYD, RONAL 239.5 PROSTATE NEOPLASM 12/25/2011 RAMAN FLOYD, RONAL 239.5 PROSTATE NEOPLASM 12/25/2011 FRANCHESCA WILLIS, EUGENE Paz 239.5 PROSTATE NEOPLASM 12/25/2011 RAMAN FLOYD, RONAL 239.5 PROSTATE NEOPLASM 12/25/2011 JORGE LUCERO, ANA ROSA R 239.5 PROSTATE NEOPLASM 12/25/2011 RAMAN FLOYD, RONAL 239.5 PROSTATE NEOPLASM 12/25/2011 FRANCHESCA WILLIS, EUGENE Paz 239.5 PROSTATE NEOPLASM 12/20/2012 NAIR DOBG K V04.81 FLU SHOT 12/20/2012 RAMAN FLOYD, RONAL V04.81 FLU SHOT 12/20/2012 RAMAN FLOYD, RONAL V04.81 FLU SHOT 12/20/2012 RAMAN FLOYD, RONAL V04.81 FLU SHOT 12/20/2012 MISA DPM, MELISSA V04.81 FLU SHOT 12/20/2012 MISA DPM, MELISSA V04.81 FLU SHOT 12/20/2012 RAMAN FLOYD, RONAL V04.81 FLU SHOT 12/20/2012 RAMAN FLOYD, RONAL V04.81 FLU SHOT 12/20/2012 FRANCHESCA SAMSONS, EUGENE Paz V04.81 FLU SHOT 12/20/2012 RAMAN FLOYD, RONAL V04.81 FLU SHOT 12/20/2012 JORGE LUCERO, ANA ROSA R V04.81 FLU SHOT 12/20/2012 RAMAN FLOYD, RONAL V04.81 FLU SHOT 12/20/2012 FRANCHESCA SAMSONS, EUGENE Paz V04.81 FLU SHOT 03/21/2013 RAMAN FLOYD, RONAL 466.0 ACUTE BRONCHITIS 03/21/2013 ARMAN FLOYD, RONAL 466.0 ACUTE BRONCHITIS 03/21/2013 MISA DPM, MELISSA 466.0 ACUTE BRONCHITIS 03/21/2013 MISA DPM, MELISSA 466.0 ACUTE BRONCHITIS 03/21/2013 RAMAN FLOYD, RONAL 466.0 ACUTE BRONCHITIS 03/21/2013 RAMAN FLOYD, RONAL 466.0 ACUTE BRONCHITIS 03/21/2013 FRANCHESCA WILLIS, EUGENE Paz 466.0 ACUTE BRONCHITIS 03/21/2013 RAMAN FLOYD, RONAL 466.0 ACUTE BRONCHITIS 03/21/2013 JORGE LUCERO, ANA ROSA R 466.0 ACUTE BRONCHITIS 03/21/2013 RAMAN FLOYD, RONAL 466.0 ACUTE BRONCHITIS 03/21/2013 FRANCHESCA WILLIS, EUGENE Paz 466.0 ACUTE BRONCHITIS 08/02/2013 RAMAN FLOYD, RONAL 401.1 BENIGN ESSENTIAL HYPERTENSION 08/02/2013 RAMAN FLOYD, RONAL 578.1 BLOOD IN STOOL 08/02/2013 RAMAN FLOYD, RONAL 401.1 BENIGN ESSENTIAL HYPERTENSION 08/02/2013 RAMAN FLOYD, RONAL 578.1 BLOOD IN STOOL 08/02/2013 MISA DPM, MELISSA 401.1 BENIGN ESSENTIAL HYPERTENSION 08/02/2013 MISA DPM, MELISSA 578.1 BLOOD IN STOOL 08/02/2013 MISA DPM, MELISSA 401.1 BENIGN ESSENTIAL HYPERTENSION 08/02/2013 MISA DPM, MELISSA 578.1 BLOOD IN STOOL 08/02/2013 RONAL CAMARGO MD 401.1 BENIGN ESSENTIAL HYPERTENSION 08/02/2013 RONAL CAMARGO MD 578.1 BLOOD IN STOOL 08/02/2013 RAMAN FLOYD, RONAL 401.1 BENIGN ESSENTIAL HYPERTENSION 08/02/2013 RONAL CAMARGO MD 578.1 BLOOD IN STOOL 08/02/2013 FRANCHESCA DDS, EUGENE Paz 401.1 BENIGN ESSENTIAL HYPERTENSION 08/02/2013 FRANCHESCA DDS, EUGENE Paz 578.1 BLOOD IN STOOL 08/02/2013 RONAL CAMARGO MD 401.1 BENIGN ESSENTIAL HYPERTENSION 08/02/2013 RONAL CAMARGO MD 578.1 BLOOD IN STOOL 08/02/2013 JORGE SAGGER PREPARER, ANA ROSA R 401.1 BENIGN ESSENTIAL HYPERTENSION 08/02/2013 JORGE LUCERO, ANA ROSA R 578.1 BLOOD IN STOOL 08/02/2013 RONAL CAMARGO MD 401.1 BENIGN ESSENTIAL HYPERTENSION 08/02/2013 RONAL CAMARGO MD 578.1 BLOOD IN STOOL 08/02/2013 FRANCHESCA DDS, EUGENE Paz 401.1 BENIGN ESSENTIAL HYPERTENSION 08/02/2013 FRANCHESCA DDS, EUGENE Paz 578.1 BLOOD IN STOOL 10/18/2013 RONAL CAMARGO MD 700 CORNS AND CALLOSITIES 10/18/2013 RONAL CAMARGO MD 724.2 LUMBAGO 10/18/2013 MISA DPM, MELISSA 700 CORNS AND CALLOSITIES 10/18/2013 MISA DPM, MELISSA 724.2 LUMBAGO 10/18/2013 MISA DPM, MELISSA 700 CORNS AND CALLOSITIES 10/18/2013 MISA DPM, MELISSA 724.2 LUMBAGO 10/18/2013 RONAL CAMARGO MD 700 CORNS AND CALLOSITIES 10/18/2013 RONAL CAMARGO MD 724.2 LUMBAGO 10/18/2013 RONAL CAMARGO MD 700 CORNS AND CALLOSITIES 10/18/2013 RONAL CAMARGO MD 724.2 LUMBAGO 10/18/2013 FRANCHESCA DDS, EUGENE Paz 700 CORNS AND CALLOSITIES 10/18/2013 FRANCHESCA SAMSONS, EUGENE Paz 724.2 LUMBAGO 10/18/2013 RONAL CAMARGO MD 700 CORNS AND CALLOSITIES 10/18/2013 RAMAN FLOYD, RONAL 724.2 LUMBAGO 10/18/2013 JORGE LUCERO, ANA ROSA R 700 CORNS AND CALLOSITIES 10/18/2013 JORGE LUCERO, ANA ROSA R 724.2 LUMBAGO 10/18/2013 RONAL CAMARGO MD 700 CORNS AND CALLOSITIES 10/18/2013 RONAL CAMARGO MD 724.2 LUMBAGO 10/18/2013 FRANCHESCA WILLIS, EUGENE Paz 700 CORNS AND CALLOSITIES 10/18/2013 FRANCHESCA WILLIS, EUGENE Paz 724.2 LUMBAGO 12/09/2013 MISA DPM, MELISSA 110.1 ONYCHOMYCOSIS 12/09/2013 MISA DPM, MELISSA 707.15 ULCER-FOOT/TOES 12/09/2013 MISA DPM, MELISSA 735.0 HALLUX VALGUS (ACQUIRED) 12/09/2013 MISA DPM, MELISSA 110.1 ONYCHOMYCOSIS 12/09/2013 MISA DPM, MELISSA 707.15 ULCER-FOOT/TOES 12/09/2013 MISA DPM, MELISSA 735.0 HALLUX VALGUS (ACQUIRED) 12/09/2013 RONAL CAMARGO MD 110.1 ONYCHOMYCOSIS 12/09/2013 RONAL CAMARGO MD 707.15 ULCER-FOOT/TOES 12/09/2013 RONAL CAMARGO MD 735.0 HALLUX VALGUS (ACQUIRED) 12/09/2013 RONAL CAMARGO MD 110.1 ONYCHOMYCOSIS 12/09/2013 RONAL CAMARGO MD 707.15 ULCER-FOOT/TOES 12/09/2013 RONAL CAMARGO MD 735.0 HALLUX VALGUS (ACQUIRED) 12/09/2013 FRANCHESCA WILLIS, EUGENE Paz 110.1 ONYCHOMYCOSIS 12/09/2013 FRANCHESCA WILLIS, EUGENE Paz 707.15 ULCER-FOOT/TOES 12/09/2013 FRANCHESCA WILLIS, EUGENE Paz 735.0 HALLUX VALGUS (ACQUIRED) 12/09/2013 RONAL CAMARGO MD 110.1 ONYCHOMYCOSIS 12/09/2013 RONAL CAMARGO MD 707.15 ULCER-FOOT/TOES 12/09/2013 HUERTER MD, RONAL 735.0 HALLUX VALGUS (ACQUIRED) 12/09/2013 JORGE LUCERO, ANA ROSA R 110.1 ONYCHOMYCOSIS 12/09/2013 JORGE LUCERO, ANA ROSA R 707.15 ULCER-FOOT/TOES 12/09/2013 JORGE LUCERO, ANA ROSA R 735.0 HALLUX VALGUS (ACQUIRED) 12/09/2013 RONAL CAMARGO MD 110.1 ONYCHOMYCOSIS 12/09/2013 RONAL CAMARGO MD 707.15 ULCER-FOOT/TOES 12/09/2013 RONAL CAMARGO MD 735.0 HALLUX VALGUS (ACQUIRED) 12/09/2013 EUGENE SORENSEN DDS 110.1 ONYCHOMYCOSIS 12/09/2013 EUGENE SORENSEN DDS 707.15 ULCER-FOOT/TOES 12/09/2013 EUGENE SORENSEN DDS 735.0 HALLUX VALGUS (ACQUIRED) 12/30/2013 MELISSA HENLEY DPM 735.4 HAMMER TOE (ACQUIRED) 12/30/2013 RONAL CAMRAGO MD 735.4 HAMMER TOE (ACQUIRED) 12/30/2013 RONAL CAMARGO MD 735.4 HAMMER TOE (ACQUIRED) 12/30/2013 EUGENE SORENSEN DDS 735.4 HAMMER TOE (ACQUIRED) 12/30/2013 RONAL CAMARGO MD 735.4 HAMMER TOE (ACQUIRED) 12/30/2013 ANA ROSA PATEL APRN 735.4 HAMMER TOE (ACQUIRED) 12/30/2013 RONAL CAMARGO MD 735.4 HAMMER TOE (ACQUIRED) 12/30/2013 EUGENE SORENSEN DDS 735.4 HAMMER TOE (ACQUIRED) 12/22/2015 Ot 287.5 12/22/2015 Ot 784.7 03/23/2016 Ot 287.5 03/23/2016 Ot 784.7 04/23/2016 Ot 287.5 04/23/2016 Ot 784.7 05/21/2017 Ot 287.5 05/21/2017 Ot 784.7 07/21/2017 Ot 287.5 07/21/2017 Ot 784.7 Procedures Code Description [place] [address] ROUTINE VENIPUNCTURE 04/27/2012 38433 CMP 04/27/20128896569 GFR CALC (RESULT ONLY) 04/27/2012 G0008 FLU ADMINISTRATION ( MEDICARE ONLY) 12/20/2012 13967 ROUTINE VENIPUNCTURE 08/02/20131040357 GFR CALC (RESULT ONLY) 08/02/2013 66136 CMP 08/02/2013 28273 CBC 08/02/2013 46943 ROUTINE VENIPUNCTURE 10/18/2013 Podiatry Melissa Henley 10/18/20136600948 GFR CALC (RESULT ONLY) 10/18/2013 79697 BMP 10/18/2013 06775 DEBRIDE NAIL >6 12/09/2013 88983 ROUTINE VENIPUNCTURE 04/12/2014 61321 CBC 04/12/2014 97415 ROUTINE VENIPUNCTURE 07/10/2014 27584 PSA TOTAL 07/10/2014 Results Test Result Range Comp. Metabolic Panel (14) - 04/28/16 11:53 Glucose, Serum 95 mg/dL 65-99 BUN 33 mg/dL 8-27 Creatinine, Serum 1.49 mg/dL 0.76-1.27 eGFR If NonAfricn Am 46 mL/min/1.73 >59 eGFR If Africn Am 53 mL/min/1.73 >59 BUN/Creatinine Ratio 22 10-22 Sodium, Serum 137 mmol/L 134-144 Potassium, Serum 4.6 mmol/L 3.5-5.2 Chloride, Serum 97 mmol/L 96-106 Carbon Dioxide, Total 26 mmol/L 18-29 Calcium, Serum 9.2 mg/dL 8.6-10.2 Protein, Total, Serum 6.5 g/dL 6.0-8.5 Albumin, Serum 4.4 g/dL 3.5-4.8 Globulin, Total 2.1 g/dL 1.5-4.5 A/G Ratio 2.1 1.1-2.5 Bilirubin, Total 0.7 mg/dL 0.0-1.2 Alkaline Phosphatase, S 80 IU/L 39-117 AST (SGOT) 13 IU/L 0-40 ALT (SGPT) 11 IU/L 0-44 Lipid Panel - 04/28/16 11:53 Cholesterol, Total 190 mg/dL 100-199 Triglycerides 146 mg/dL 0-149 HDL Cholesterol 61 mg/dL >39 VLDL Cholesterol Bao 29 mg/dL 5-40 LDL Cholesterol Calc 100 mg/dL 0-99 CBC With Differential/Platelet - 07/14/16 15:57 WBC 6.0 x10E3/uL 3.4-10.8 RBC 5.04 x10E6/uL 4.14-5.80 Hemoglobin 14.8 g/dL 12.6-17.7 Hematocrit 45.3 % 37.5-51.0 MCV 90 fL 79-97 MCH 29.4 pg 26.6-33.0 MCHC 32.7 g/dL 31.5-35.7 RDW 14.2 % 12.3-15.4 Platelets 195 x10E3/uL 150-379 Neutrophils 58 % Lymphs 27 % Monocytes 12 % Eos 3 % Basos 0 % Neutrophils (Absolute) 3.5 x10E3/uL 1.4-7.0 Lymphs (Absolute) 1.7 x10E3/uL 0.7-3.1 Monocytes(Absolute) 0.7 x10E3/uL 0.1-0.9 Eos (Absolute) 0.2 x10E3/uL 0.0-0.4 Baso (Absolute) 0.0 x10E3/uL 0.0-0.2 Immature Granulocytes 0 % Immature Grans (Abs) 0.0 x10E3/uL 0.0-0.1 Comp. Metabolic Panel (14) - 07/14/16 15:57 Glucose, Serum 89 mg/dL 65-99 BUN 36 mg/dL 8-27 Creatinine, Serum 1.65 mg/dL 0.76-1.27 eGFR If NonAfricn Am 41 mL/min/1.73 >59 eGFR If Africn Am 47 mL/min/1.73 >59 BUN/Creatinine Ratio 22 10-24 Sodium, Serum 137 mmol/L 134-144 Potassium, Serum 4.7 mmol/L 3.5-5.2 Chloride, Serum 97 mmol/L 96-106 Carbon Dioxide, Total 21 mmol/L 18-29 Calcium, Serum 9.2 mg/dL 8.6-10.2 Protein, Total, Serum 6.5 g/dL 6.0-8.5 Albumin, Serum 4.3 g/dL 3.5-4.8 Globulin, Total 2.2 g/dL 1.5-4.5 A/G Ratio 2.0 1.2-2.2 Bilirubin, Total 0.8 mg/dL 0.0-1.2 Alkaline Phosphatase, S 78 IU/L 39-117 AST (SGOT) 13 IU/L 0-40 ALT (SGPT) 7 IU/L 0-44 TSH - 07/14/16 15:57 TSH 0.759 uIU/mL 0.450-4.500 C-Reactive Protein, Quant - 07/14/16 15:57 C-Reactive Protein, Quant 1.8 mg/L 0.0-4.9 PSA - 02/17/17 10:26 PSA, TOTAL 0.8 ng/mL < OR=4.0 CMP - 09/10/17 14:02 GLUCOSE 93 mg/dL 65-99 UREA NITROGEN (BUN) 23 mg/dL 7-25 CREATININE 1.15 mg/dL 0.70-1.18 eGFR NON-AFR. CYPRIOT 62 mL/min/1.73m2 > OR=60 eGFR 72 mL/min/1.73m2 > OR=60 BUN/CREATININE RATIO NOT APPLICABLE (calc) 6-22 SODIUM 137 mmol/L 135-146 POTASSIUM 4.5 mmol/L 3.5-5.3 CHLORIDE 101 mmol/L 98-110 CARBON DIOXIDE 24 mmol/L 20-31 CALCIUM 9.1 mg/dL 8.6-10.3 PROTEIN, TOTAL 6.1 g/dL 6.1-8.1 ALBUMIN 3.9 g/dL 3.6-5.1 GLOBULIN 2.2 g/dL (calc) 1.9-3.7 ALBUMIN/GLOBULIN RATIO 1.8 (calc) 1.0-2.5 BILIRUBIN, TOTAL 0.9 mg/dL 0.2-1.2 ALKALINE PHOSPHATASE 92 U/L 40-115 AST 17 U/L 10-35 ALT 14 U/L 9-46 Encounters ACCT No. Visit Date/Time Discharge Status Pt. Type Provider Facility Loc./Unit Complaint [id number] 07/14/2014 10:11:00 07/14/2014 23:59:59 CLS Outpatient EUGENE SORENSEN DDS [id number] 07/10/2014 13:10:00 07/10/2014 23:59:59 CLS Outpatient RONAL CAMARGO MD [id number] 05/02/2014 12:53:00 05/02/2014 23:59:59 CLS Outpatient RONAL CAMARGO MD [id number] 04/21/2014 13:42:00 04/21/2014 23:59:59 CLS Outpatient EUGENE SORENSEN DDS [id number] 04/13/2014 11:22:00 04/13/2014 23:59:59 CLS Outpatient ANA ROSA PATEL APRN [id number] 04/12/2014 13:28:00 04/12/2014 23:59:59 CLS Outpatient RONAL CAMARGO MD [id number] 03/02/2014 14:21:00 03/02/2014 23:59:59 CLS Outpatient RONAL CAMARGO MD [id number] 12/30/2013 08:17:00 12/30/2013 23:59:59 CLS Outpatient MELISSA HENLEY DPM [id number] 12/09/2013 07:37:00 12/09/2013 23:59:59 CLS Outpatient MELISSA HENLEY DPM [id number] 10/18/2013 10:46:00 10/18/2013 23:59:59 CLS Outpatient RONAL CAMARGO MD [id number] 08/02/2013 10:39:00 08/02/2013 23:59:59 CLS Outpatient RONAL CAMARGO MD [id number] 02/03/2013 10:39:00 02/03/2013 23:59:59 CLS Outpatient RONAL CAMARGO MD [id number] 12/20/2012 13:21:00 12/20/2012 23:59:59 CLS Outpatient NAIR BG CLEMENT [id number] 04/27/2012 13:45:00 04/27/2012 23:59:59 CLS Outpatient [id number] 04/27/2012 13:45:00 04/27/2012 23:59:59 CLS Outpatient [id number] 12/25/2011 15:56:00 12/25/2011 23:59:59 CLS Outpatient RONAL CAMARGO MD [id number] 12/25/2011 15:56:00 12/25/2011 23:59:59 CLS Outpatient RONAL CAMARGO MD [id number] 08/19/2012 13:57:00 Document Registration [id number] 01/01/2013 10:00:00 01/01/2013 13:04:00 DIS Emergency [id number] 01/12/2018 12:12:00 ACT Emergency JANA WHITE MD Via [facility] ER THINKS HE'S HAVING A HEART ATTACK [id number] 05/28/2006 05:51:00 Document Registration [id number] 04/29/2016 09:16:00 Document Registration [id number] 07/15/2016 13:05:00 Document Registration [id number] 09/10/2017 14:00:00 09/10/2017 23:59:59 [facility] Susi CAMARGO MD, [facility] [id number] 09/10/2017 14:00:00 Document Registration [id number] 02/17/2017 10:00:00 Document Registration
--- NOTE | 2018-01-12 12:43 | ED General ---
General Chief Complaint: Cardiac/General Problems Stated Complaint: THINKS HE'S HAVING A HEART ATTACK Nursing Triage Note: ARRIVED VIA AMB TO ROOM01. STATES HE WAS AT [facility] OFFICE ET SENT TO DR WALL OFFICE DUE TO HYPERTENSION. RAMAN SENT HIM TO THE ER. DENIES CHEST PAIN. Nursing Sepsis Screen: No Definite Risk Source of Information: Patient Exam Limitations: No Limitations History of Present Illness Date Seen by Provider: Jan 12, 2018 Time Seen by Provider: 12:31 Initial Comments Here with report of moderate to significant swelling of both legs all way up to the level of the hips. Also has scrotal swelling. Reportedly has had urine leakage and has some wounds around the scrotum. Daughter is here and she is concerned about the patient's ability to care for himself. Patient seems understanding was going on but does not appear to fully understand his medical care. He still works daily and reports that he continues to want to work. Denies any significant pain or shortness of breath. Allergies and Home Medications Allergies Coded Allergies: No Known Allergies (Verified Allergy, Unknown, 05/28/06) Patient Home Medication List Home Medication List Reviewed: Yes Review of Systems Review of Systems Constitutional: see HPI; No chills, No fever EENTM: no symptoms reported Respiratory: No cough, No short of breath Cardiovascular: No chest pain; edema Gastrointestinal: abdominal pain; No nausea, No vomiting Genitourinary: No dysuria; hesitancy; No pain Musculoskeletal: no symptoms reported Skin: see HPI, change in color, lesions Psychiatric/Neurological: No Symptoms Reported All Other Systems Reviewed Negative Unless Noted: Yes Past Tjconiv-Msrhzc-Qnehgu Hx Past Med/Social Hx: Reviewed Nursing Past Med/Soc Hx Patient Social History Alcohol Use: Denies Use Recreational Drug Use: No Smoking Status: Never a Smoker Recent Foreign Travel: No Contact w/Someone Who Travel: No Recent Infectious Disease Expo: No Recent Hopitalizations: Yes Immunizations Up To Date Tetanus Booster (TDap): More than 5yrs Past Medical History Surgeries: No Respiratory: No Cardiac: Yes Hypertension Neurological: No Reproductive Disorders: No Genitourinary: Yes (STATES HIS KIDNEYS DON'T WORK RIGHT) Prostate Problems Gastrointestinal: No (HERNIA) Musculoskeletal: No Endocrine: No Cancer: No Psychosocial: No Integumentary: No Blood Disorders: Yes (APLASTIC ANEMIA) Family Medical History Reviewed Nursing Family Hx No Pertinent Family Hx Physical Exam Vital Signs Vital Signs - First Documented 01/12/18 12:11 Temp 97.9 Pulse 18 Resp 16 B/P (MAP) 174/123 (140) Pulse Ox 92 O2 Delivery Room Air Capillary Refill : Less Than 3 Seconds Height, Weight, BMI Height: 5'7.00" Weight: 178lbs. oz. 80.996200av; BMI Method:Stated General Appearance: No Apparent Distress, WD/WN HEENT: PERRL/EOMI, Pharynx Normal Neck: Normal Inspection, Non Tender, Supple Respiratory: No Accessory Muscle Use, Crackles (bilateral bases) Cardiovascular: Regular Rate, Rhythm, No Murmur Gastrointestinal: Non Tender, Soft Genital/Rectal: Other (noted mild swelling to the penis and scrotum. Skin breakdown as discussed below) Back: Normal Inspection, No CVA Tenderness, No Vertebral Tenderness Extremity: Normal Range of Motion, Non Tender, Pedal Edema (3+ to the level of the hips bilateral) Neurologic/Psychiatric: Alert, Oriented x3, No Motor/Sensory Deficits Skin: Warm/Dry, Other (skin breakdown noted to the scrotum and the upper legs bilateral) Progress/Results/Core Measures Suspected Sepsis Recent Fever Within 48 Hours: No Infection Criteria Present: None New/Unexplained Altered Menta: No Sepsis Screen: No Definite Risk SIRS Temperature:97.9 Pulse: 18 Respiratory Rate: 16 Laboratory Tests 01/12/18 12:25: White Blood Count 6.6 Blood Pressure 174 /123 Mean: 140 Laboratory Tests 01/12/18 12:25: Creatinine 1.49H, INR Comment 1.1, Platelet Count 170, Total Bilirubin 1.6H Results/Orders Lab Results Laboratory Tests Test 01/12/18 12:25 01/12/18 12:47 Range/Units White Blood Count 6.6 4.3-11.0 10^3/uL Red Blood Count 5.77 4.35-5.85 10^6/uL Hemoglobin 16.8 13.3-17.7 G/DL Hematocrit 51 40-54 % Mean Corpuscular Volume 89 80-99 FL Mean Corpuscular Hemoglobin 29 25-34 PG Mean Corpuscular Hemoglobin Concent 33 32-36 G/DL Red Cell Distribution Width 15.6 H 10.0-14.5 % Platelet Count 170 130-400 10^3/uL Mean Platelet Volume 9.6 7.4-10.4 FL Neutrophils (%) (Auto) 78 H 42-75 % Lymphocytes (%) (Auto) 10 L 12-44 % Monocytes (%) (Auto) 12 0-12 % Eosinophils (%) (Auto) 1 0-10 % Basophils (%) (Auto) 0 0-10 % Neutrophils # (Auto) 5.1 1.8-7.8 X 10^3 Lymphocytes # (Auto) 0.6 L 1.0-4.0 X 10^3 Monocytes # (Auto) 0.8 0.0-1.0 X 10^3 Eosinophils # (Auto) 0.0 0.0-0.3 10^3/uL Basophils # (Auto) 0.0 0.0-0.1 10^3/uL Prothrombin Time 14.1 12.2-14.7 SEC INR Comment 1.1 0.8-1.4 Activated Partial Thromboplast Time 27 24-35 SEC Sodium Level 137 135-145 MMOL/L Potassium Level 4.9 3.6-5.0 MMOL/L Chloride Level 102 98-107 MMOL/L Carbon Dioxide Level 23 21-32 MMOL/L Anion Gap 12 5-14 MMOL/L Blood Urea Nitrogen 25 H 7-18 MG/DL Creatinine 1.49 H 0.60-1.30 MG/DL Estimat Glomerular Filtration Rate 46 BUN/Creatinine Ratio 17 Glucose Level 100 70-105 MG/DL Calcium Level 9.4 8.5-10.1 MG/DL Corrected Calcium 9.4 8.5-10.1 MG/DL Magnesium Level 2.0 1.8-2.4 MG/DL Total Bilirubin 1.6 H 0.1-1.0 MG/DL Aspartate Amino Transf (AST/SGOT) 20 5-34 U/L Alanine Aminotransferase (ALT/SGPT) 20 0-55 U/L Alkaline Phosphatase 110 40-136 U/L Myoglobin 82.4 10.0-92.0 NG/ML Troponin I < 0.30 <0.30 NG/ML B-Type Natriuretic Peptide 3634.8 H <100.0 PG/ML Total Protein 6.6 6.4-8.2 GM/DL Albumin 4.0 3.2-4.5 GM/DL Urine Color YELLOW Urine Clarity CLEAR Urine pH 6 5-9 Urine Specific Ulysses 1.015 L 1.016-1.022 Urine Protein 3+ H NEGATIVE Urine Glucose (UA) NEGATIVE NEGATIVE Urine Ketones NEGATIVE NEGATIVE Urine Nitrite NEGATIVE NEGATIVE Urine Bilirubin NEGATIVE NEGATIVE Urine Urobilinogen 4 H NORMAL MG/DL Urine Leukocyte Esterase NEGATIVE NEGATIVE Urine RBC (Auto) 2+ H NEGATIVE Urine RBC 5-10 H /HPF Urine WBC NONE /HPF Urine Squamous Epithelial Cells RARE /HPF Urine Crystals NONE /LPF Urine Bacteria TRACE /HPF Urine Casts NONE /LPF Urine Mucus NEGATIVE /LPF Urine Culture Indicated NO My Orders Orders - JANA WHITE MD Ekg Tracing (01/12/18 12:12) Cbc With Automated Diff (01/12/18 12:25) Magnesium (01/12/18 12:25) Chest 1 View, Ap/Pa Only (01/12/18 12:25) Cardiac Profile 1 (01/12/18 12:25) Comprehensive Metabolic Panel (01/12/18 12:25) Myoglobin Serum (01/12/18 12:25) Protime With Inr (01/12/18 12:25) Partial Thromboplastin Time (01/12/18 12:25) O2 (01/12/18 12:25) Monitor-Rhythm Ecg Trace Only (01/12/18 12:25) Lipid Panel (01/13/18 06:00) Saline Lock/Iv-Start (01/12/18 12:25) BNP (01/12/18 12:25) Catheter(Urinary) Insert & Ass 03,15 (01/12/18 12:42) Ua Culture If Indicated (01/12/18 12:42) Furosemide Injection (Lasix Injection) (01/12/18 13:19) Furosemide Injection (Lasix Injection) (01/12/18 13:26) Vital Signs/I&O 01/12/18 12:11 Temp 97.9 Pulse 18 Resp 16 B/P (MAP) 174/123 (140) Pulse Ox 92 O2 Delivery Room Air Capillary Refill : Less Than 3 Seconds Blood Pressure Mean: 140 Progress Note : Progress Note Seen and evaluated. IV, labs, UA, chest x-ray and EKG ordered. Rivera catheter ordered due to marked swelling and skin breakdown in the scrotum area. 1324: I discussed the case with Dr. Li. We will go ahead and give Lasix 80 mg IV for the acute new onset heart failure. I did discuss the case with Dr. Lucero 3213 and she accepts patient for admission on-call for [facility]. Daughter's concern about patient's ability to care for himself and asked for social work consult. This was placed. I did also place wound care consult per direction of Dr. Lucero. Findings concerns discussed the patient and family who agree with plan. ECG Initial ECG Impression Date: Jan 12, 2018 Initial ECG Impression Time: 12:16 Initial ECG Rate: 84 Initial ECG Rhythm: Normal Sinus Comment Sinus rhythm with left axis deviation. No evidence of ST elevation [place]. Similar to previous of 01 January 2013. Interpreted by me. Diagnostic Imaging Diagonstic Imaging: Xray Plain Films/CT/US/NM/MRI: chest Comments VIA [facility]. [place], [place] NAME: ROMANA BRIDGES [facility] REC#: [id number] PT STATUS: REG ER : 1940 PHYSICIAN: JANA WHITE MD ADMIT DATE: 01/12/18/ER Draft Date of Exam:01/12/18 CHEST 1 VIEW, AP/PA ONLY EXAM: CHEST 1 VIEW, AP/PA ONLY INDICATION: Hypertension. Lower extremity edema. COMPARISON: Chest radiograph 08/11/2006. FINDINGS: Low lung volumes with perihilar and bibasilar atelectasis or infiltrate. Normal heart size. Tiny bilateral pleural effusions or thickening. No pneumothorax. No acute osseous findings. IMPRESSION: 1. Low lung volumes with perihilar and bibasilar atelectasis or infiltrate. Central pulmonary vascularity is obscured. 2. Small bilateral pleural effusions or thickening. Dictated on workstation # [id number] Dict: 01/12/18 1246 Trans: 01/12/18 1250 [facility] [id number] Interpreted by: GARLAND MASON MD Electronically signed by: Departure Communication (Admissions) Time/Spoke to Admitting Phy: 13:27 Time/Spoke to Consulting Phy: 13:24 Impression Primary Impression: Acute heart failure Qualified Codes: I50.9 - Heart failure, unspecified Additional Impression: Scrotal skin lesion Disposition: ADMITTED INPATIENT Condition: Stable Admissions Decision to Admit Reason: Admit from ER (General) Decision to Admit/Date: Jan 12, 2018 Time/Decision to Admit Time: 13:24 Departure-Patient Inst. Referrals: [facility] [place] (PCP/Family) Primary Care Physician JANA WHITE MD Jan 12, 2018 12:43
[2018-01-12 12:48] LABS: INR 1.1 (0.8-1.4); PROTHROMBIN TIME PATIENT 14.1 SEC (12.2-14.7)
--- NOTE | 2018-01-12 12:51 | Diagnostic Imaging Report ---
EXAM: CHEST 1 VIEW, AP/PA ONLY INDICATION: Hypertension. Lower extremity edema. COMPARISON: Chest radiograph 08/11/2006. FINDINGS: Low lung volumes with perihilar and bibasilar atelectasis or infiltrate. Normal heart size. Tiny bilateral pleural effusions or thickening. No pneumothorax. No acute osseous findings. IMPRESSION: 1. Low lung volumes with perihilar and bibasilar atelectasis or infiltrate. Central pulmonary vascularity is obscured. 2. Small bilateral pleural effusions or thickening. Dictated by: Dictated on workstation # [id number]
[2018-01-12 12:53] LABS: BILIRUBIN,URINE NEGATIVE (NEGATIVE); CLARITY,URINE CLEAR; COLOR,URINE YELLOW; GLUCOSE, URINE (UA) NEGATIVE (NEGATIVE); KETONES,URINE NEGATIVE (NEGATIVE); LEUKOCYTE ESTERASE ,URINE NEGATIVE (NEGATIVE); NITRITE,URINE NEGATIVE (NEGATIVE); PH,URINE 6 (5-9); PROTEIN,URINE 3+ (NEGATIVE); UROBILINOGEN,URINE 4 MG/DL (NORMAL)
[2018-01-12 12:55] LABS: ALANINE AMINOTRANSFERASE 20 U/L (0-55); ALKALINE PHOSPHATASE 110 U/L (40-136); BILIRUBIN,TOTAL 1.6 MG/DL (0.1-1.0); BUN/CREATININE RATIO 17; CALCIUM 9.4 MG/DL (8.5-10.1); CARBON DIOXIDE 23 MMOL/L (21-32); CHLORIDE 102 MMOL/L (98-107); CREATININE SERUM 1.49 MG/DL (0.60-1.30); GFR ESTIMATED 46; GLUCOSE 100 MG/DL (70-105); POTASSIUM 4.9 MMOL/L (3.6-5.0); SODIUM 137 MMOL/L (135-145); TOTAL PROTEIN 6.6 GM/DL (6.4-8.2)
[2018-01-12 13:01] LABS: MYOGLOBIN SERUM 82.4 NG/ML (10.0-92.0)
[2018-01-12 13:08] LABS: BACTERIA,URINE TRACE /HPF; SQUAMOUS EPITHELIAL CELL,UR RARE /HPF
[2018-01-12] MEDS ORDERED: FUROSEMIDE 40 MG/4 ML INJ (LASIX) IV STA ×2 (13:19→13:26)
[2018-01-12] MEDS ORDERED: meTOprolol 5 MG/5 ML (LOPRESSOR) VIAL IV ONE (13:45)
[2018-01-12] MEDS ORDERED: NITROGLYCERIN 2% OINT 1 GM UNIT DOSE PACKET TOP ONE (13:45)
[2018-01-12 14:37] VITALS: BP 150/100
[2018-01-12] MEDS ORDERED: CATHETER FLUSH 10 ML SYR IV PRN (14:45)
--- OUTSIDE RECORDS SUMMARY | 2018-01-12 15:27 | XMS REPORT | Continuity of Care Document ---
Author Author 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, Unspecified, Site Unspecified 03/30/2009 JORGE GRAIN ELEVATOR MAN, ANA ROSA R 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, Unspecified, Site [...] RAMAN FLOYD, RONAL 724.3 Sciatica 07/03/2009 RAMAN FLODY, RONAL 724.3 Sciatica 07/03/2009 FRANCHESCA WILLIS, EUGENE [...] 07/06/2009 RAMAN FLOYD, RONAL 703.8 Onychocryptosis 07/06/2009 RAMAN FLOYD, RONAL 110.1 Onychomycosis 07/06/2009 RAMAN FLOYD, RONAL 356.9 Neuropathy 07/06/2009 RAMAN FLOYD, RONAL 703.8 Onychocryptosis 07/06/2009 RAMAN FLOYD, RONAL 110.1 Onychomycosis 07/06/2009 RAMAN FLOYD, RONAL Finley.9 Neuropathy 07/06/2009 RAMAN FLOYD, RONAL 703.8 Onychocryptosis 07/06/2009 MISA DPM, MELISSA 110.1 Onychomycosis 07/06/2009 MISA DPM, MELISSA 356.9 Neuropathy 07/06/2009 MISA DPM, MELISSA 703.8 Onychocryptosis 07/06/2009 MISA DPM, MELISSA 110.1 Onychomycosis 07/06/2009 MISA DPM, MELSISA 356.9 Neuropathy 07/06/2009 MISA DPM, MELISSA 703.8 Onychocryptosis 07/06/2009 RAMAN FLOYD, RONAL 110.1 Onychomycosis 07/06/2009 RAMAN FLOYD, RONAL Finley.9 Neuropathy 07/06/2009 RONAL CAMARGO MD 703.8 Onychocryptosis 07/06/2009 RAMAN FLOYD, RONAL 110.1 Onychomycosis 07/06/2009 RAMAN FLYOD, RONAL 356.9 Neuropathy 07/06/2009 RAMAN FLOYD, RONAL 703.8 Onychocryptosis 07/06/2009 FRANCHESCA SAMSONS, EUGENE Paz 110.1 Onychomycosis 07/06/2009 FRANCHESCA SAMSONS, EUGNEE Paz 356.9 Neuropathy 07/06/2009 FRANCHESCA SAMSONS, EUGENE Paz 703.8 Onychocryptosis 07/06/2009 RAMAN FLOYD, RONAL 110.1 Onychomycosis 07/06/2009 RAMAN FLOYD, RONAL 356.9 Neuropathy 07/06/2009 RAMAN FLOYD, RONAL 703.8 Onychocryptosis 07/06/2009 JORGE GRAIN ELEVATOR MAN, ANA ROSA R 110.1 Onychomycosis 07/06/2009 JORGE GRAIN ELEVATOR MAN, ANA ROSA R 356.9 Neuropathy 07/06/2009 JORGE GRAIN ELEVATOR MAN, ANA ROSA R 703.8 Onychocryptosis 07/06/2009 RAMAN FLOYD, RONAL 110.1 Onychomycosis 07/06/2009 RAMAN FLOYD, RONAL 356.9 Neuropathy 07/06/2009 ARMAN FLOYD, RONAL 703.8 Onychocryptosis 07/06/2009 FRANCHESCA SAMSONS, [...] RAMAN FLOYD, RONAL 477.9 Rhinitis 09/28/2009 RAMAN FOLYD, RONAL 477.9 Rhinitis 09/28/2009 MISA DPM, MELISSA 477.9 Rhinitis 09/28/2009 MISA DPM, MELISSA 477.9 Rhinitis 09/28/2009 RAMAN FLOYD, RONAL 477.9 Rhinitis 09/28/2009 RAMAN FLOYD, ORNAL 477.9 Rhinitis 09/28/2009 FRANCHESCA SAMSONS, EUGENE Paz 477.9 Rhinitis 09/28/2009 RAMAN FLOYD, [...] 311 DEPRESSIVE DISORDER NOS 04/05/2010 FRANCHESCA SAMSONS, EGUENE Paz V76.44 Prostate Screening 04/05/2010 RONAL CAMARGO MD 272.4 HYPERLIPIDEMIA 04/05/2010 RONAL CAMARGO MD 311 DEPRESSIVE DISORDER NOS 04/05/2010 RONAL CAMARGO MD V76.44 Prostate Screening 04/05/2010 JORGE GRAIN ELEVATOR MAN, ANA ROSA R 272.4 HYPERLIPIDEMIA 04/05/2010 JORGE GRAIN ELEVATOR MAN, ANA ROSA R 311 DEPRESSIVE DISORDER NOS 04/05/2010 JORGE GRAIN ELEVATOR MAN, ANA ROSA R V76.44 Prostate Screening 04/05/2010 [...] MD 703.0 Ingrown Toenail (infection) 07/05/2010 JORGE GRAIN ELEVATOR MAN, ANA ROSA Yates 703.0 Ingrown Toenail (infection) 07/05/2010 RONAL CAMARGO MD 703.0 Ingrown Toenail (infection) 07/05/2010 FRANCHESCA WILLIS, EUGENE Paz 703.0 Ingrown Toenail (infection) 08/08/2010 RONLA CAMARGO MD 460 Acute Nasopharyngitis (common Cold) [...] CAMARGO MD 372.30 Conjunctivitis Unspecified 01/10/2011 JORGE GRAIN ELEVATOR MAN, ANA ROSA R 372.30 Conjunctivitis Unspecified 01/10/2011 RONAL CAMARGO [...] MISA DPM, MELISSA 724.5 BACKACHE UNSPECIFIED 10/27/2011 RAMAN FLOYD, RONAL 724.5 BACKACHE UNSPECIFIED 10/27/2011 RAMAN [...] RAMAN FLOYD, RONAL 466.0 ACUTE BRONCHITIS 03/21/2013 MISA [...] MD 578.1 BLOOD IN STOOL 08/02/2013 JORGE GRAIN ELEVATOR MAN, ANA ROSA R 401.1 BENIGN ESSENTIAL HYPERTENSION [...] DPM 735.4 HAMMER TOE (ACQUIRED) 12/30/2013 RONAL CAMARGO MD 735.4 HAMMER TOE (ACQUIRED) 12/30/2013 RONAL [...] Procedures Code [place] [address] ROUTINE VENIPUNCTURE 04/27/2012 18746 CMP 04/27/20126416431 GFR CALC (RESULT ONLY) 04/27/2012 G0008 FLU ADMINISTRATION ( MEDICARE ONLY) 12/20/2012 29875 ROUTINE VENIPUNCTURE 08/02/20131178543 GFR CALC (RESULT ONLY) 08/02/2013 93469 CMP 08/02/2013 53264 CBC 08/02/2013 36500 ROUTINE VENIPUNCTURE 10/18/2013 Podiatry Melissa Henley 10/18/20135325931 GFR CALC (RESULT ONLY) 10/18/2013 73252 BMP 10/18/2013 55666 DEBRIDE NAIL >6 12/09/2013 68593 ROUTINE VENIPUNCTURE 04/12/2014 00780 CBC 04/12/2014 51005 ROUTINE VENIPUNCTURE 07/10/2014 62163 PSA TOTAL 07/10/2014 Results Test Result Range [...] 7-25 CREATININE 1.15 mg/dL 0.70-1.18 eGFR NON-AFR. SAO TOMEAN 62 mL/min/1.73m2 > OR=60 eGFR 72 mL/min/1.73m2 [...] 17 U/L 10-35 ALT 14 U/L 9-46 Complete blood count (CBC) with automated white blood cell (WBC) differential - 01/12/18 12:25 Blood leukocytes automated count (number/volume) 6.6 10*3/uL 4.3-11.0 Blood erythrocytes automated count (number/volume) 5.77 10*6/uL 4.35-5.85 Venous blood hemoglobin measurement (mass/volume) 16.8 g/dL 13.3-17.7 Blood hematocrit (volume fraction) 51 % 40-54 Automated erythrocyte mean corpuscular volume 89 [foz_us] 80-99 Automated erythrocyte mean corpuscular hemoglobin (mass per erythrocyte) 29 pg 25-34 Automated erythrocyte mean corpuscular hemoglobin concentration measurement ( mass/volume) 33 g/dL 32-36 Automated erythrocyte distribution width ratio 15.6 % 10.0-14.5 Automated blood platelet count (count/volume) 170 10*3/uL 130-400 Automated blood platelet mean volume measurement 9.6 [foz_us] 7.4-10.4 Automated blood neutrophils/100 leukocytes 78 % 42-75 Automated blood lymphocytes/100 leukocytes 10 % 12-44 Blood monocytes/100 leukocytes 12 % 0-12 Automated blood eosinophils/100 leukocytes 1 % 0-10 Automated blood basophils/100 leukocytes 0 % 0-10 Blood neutrophils automated count (number/volume) 5.1 10*3 1.8-7.8 Blood lymphocytes automated count (number/volume) 0.6 10*3 1.0-4.0 Blood monocytes automated count (number/volume) 0.8 10*3 0.0-1.0 Automated eosinophil count 0.0 10*3/uL 0.0-0.3 Automated blood basophil count (count/volume) 0.0 10*3/uL 0.0-0.1 PT panel in platelet poor plasma by coagulation assay - 01/12/18 12:25 Prothrombin time (PT) in platelet poor plasma by coagulation assay 14.1 s 12.2-14.7 INR in platelet poor plasma or blood by coagulation assay 1.1 0.8-1.4 Activated partial thromboplastin time (aPTT) in platelet poor plasma bycoagulation assay - 01/12/18 12:25 Activated partial thromboplastin time (aPTT) in platelet poor plasma bycoagulation assay 27 s 24-35 Comprehensive metabolic panel - 01/12/18 12:25 Serum or plasma sodium measurement (moles/volume) 137 mmol/L 135-145 Serum or plasma potassium measurement (moles/volume) 4.9 mmol/L 3.6-5.0 Serum or plasma chloride measurement (moles/volume) 102 mmol/L 98-107 Carbon dioxide 23 mmol/L 21-32 Serum or plasma anion gap determination (moles/volume) 12 mmol/L 5-14 Serum or plasma urea nitrogen measurement (mass/volume) 25 mg/dL 7-18 Serum or plasma creatinine measurement (mass/volume) 1.49 mg/dL 0.60-1.30 Serum or plasma urea nitrogen/creatinine mass ratio 17 NRG Serum or plasma creatinine measurement with calculation of estimated glomerular filtration rate 46 NRG Serum or plasma glucose measurement (mass/volume) 100 mg/dL 70-105 Serum or plasma calcium measurement (mass/volume) 9.4 mg/dL 8.5-10.1 Serum or plasma total bilirubin measurement (mass/volume) 1.6 mg/dL 0.1-1.0 Serum or plasma alkaline phosphatase measurement (enzymatic activity/volume) 110 U/L 40-136 Serum or plasma aspartate aminotransferase measurement (enzymatic activity/ volume) 20 U/L 5-34 Serum or plasma alanine aminotransferase measurement (enzymatic activity/volume ) 20 U/L 0-55 Serum or plasma protein measurement (mass/volume) 6.6 g/dL 6.4-8.2 Serum or plasma albumin measurement (mass/volume) 4.0 g/dL 3.2-4.5 CALCIUM CORRECTED 9.4 mg/dL 8.5-10.1 Magnesium - 01/12/18 12:25 Magnesium 2.0 mg/dL 1.8-2.4 Serum or plasma troponin i.cardiac measurement (mass/volume) - 01/12/18 12:25 Serum or plasma troponin i.cardiac measurement (mass/volume) < ng/ mL <0.30 Myoglobin, serum - 01/12/18 12:25 Myoglobin, serum 82.4 ng/mL 10.0-92.0 Serum or plasma lithium measurement (moles/volume) - 01/12/18 12:25 BNP level 3634.8 pg/mL <100.0 Encounters ACCT No. Visit Date/Time Discharge Status Pt. Type Provider Facility Loc./Unit Complaint [id number] 07/14/2014 10:11:00 07/14/2014 23:59:59 CLS Outpatient EUGENE SORENSEN DDS [id number] 07/10/2014 13:10:00 07/10/2014 23:59:59 CLS Outpatient RONAL CAMARGO MD [id number] 05/02/2014 12:53:00 05/02/2014 23:59:59 CLS Outpatient RONAL CAMARGO MD [id number] 04/21/2014 13:42:00 04/21/2014 23:59:59 CLS Outpatient EUGENE SORENSEN DDS [id number] 04/13/2014 11:22:00 04/13/2014 23:59:59 CLS Outpatient ANA ROSA PATEL APRN [id number] 04/12/2014 13:28:00 04/12/2014 23:59:59 CLS Outpatient RONAL CAMARGO MD [id number] 03/02/2014 14:21:00 03/02/2014 23:59:59 CLS Outpatient RONAL CAMARGO MD [id number] 12/30/2013 08:17:00 12/30/2013 23:59:59 CLS Outpatient MELISSA HENLEY DPM [id number] 12/09/2013 07:37:00 12/09/2013 23:59:59 CLS Outpatient MELISSA HENLEY DPM [id number] 10/18/2013 10:46:00 10/18/2013 23:59:59 CLS Outpatient RONAL CAMARGO MD [id number] 08/02/2013 10:39:00 08/02/2013 23:59:59 CLS Outpatient RONAL CAMARGO MD [id number] 02/03/2013 10:39:00 02/03/2013 23:59:59 CLS Outpatient RONAL CAMARGO MD [id number] 12/20/2012 13:21:00 12/20/2012 23:59:59 CLS Outpatient BG NAIR DO [id number] 04/27/2012 13:45:00 04/27/2012 23:59:59 CLS Outpatient [id number] 04/27/2012 13:45:00 04/27/2012 23:59:59 CLS Outpatient [id number] 12/25/2011 15:56:00 12/25/2011 23:59:59 CLS Outpatient RONAL CAMARGO MD [id number] 12/25/2011 15:56:00 12/25/2011 23:59:59 CLS Outpatient RONAL CAMARGO MD [id number] 08/19/2012 13:57:00 Document Registration [id number] 01/01/2013 10:00:00 01/01/2013 13:04:00 DIS Emergency [id number] 01/12/2018 13:37:00 ACT Inpatient KYRIE EDWARD DO [facility] 4TH ACUTE HEART FAILURE;SCROTAL WOUND [id number] 05/28/2006 05:51:00 Document Registration [id number] 04/29/2016 09:16:00 Document Registration [id number] 07/15/2016 13:05:00 Document Registration [id number] 09/10/2017 14:00:00 09/10/2017 23:59:59 [facility] Susi CAMARGO MD, RONAL [facility] [id number] 09/10/2017 14:00:00 Document Registration [id number] 02/17/2017 10:00:00 Document Registration
[2018-01-12 16:00] VITALS: BP 158/86
[2018-01-12] MEDS ORDERED: FLU QUADRIvalent (5+ YOA) 2018-2019 (AFLURIA) 0.5 ML IM ONE (16:00)
--- NOTE | 2018-01-12 16:56 | Consultation-Cardiology ---
HPI-Cardiology Cardiology Consultation Date of Consultation 01/12/18 Date of Admission Time Seen by Provider: 16:50 Indication: Peripheral edema, shortness of breath HPI 77 years old gentleman with history of degenerative joint disease, takes oxycodone. Was in his usual state of health until about 2 weeks ago when he started having progressive pedal edema which was worsening significantly, seen by his medical doctor at [facility] today and he was referred to the emergency room. He denied any chest pain. No palpitation, no orthopnea, no PND. Denied any significant dyspnea on exertion but his exercise ability is somewhat limited. He drinks about 1 beer every day. No other risk factors. Home Medications & Allergies Allergies: Coded Allergies: NKANo Known Allergies (Verified Allergy, Unknown, 05/28/06) Home Medication List Reviewed: Yes YBJ-Bbranj-Ktmnvo Hx Patient Social History Employed/Student: employed Alcohol Use: Regular Use Recreational Drug Use: No Smoking Status: Never a Smoker Recent Foreign Travel: No Recent Infectious Disease Expo: No Recent Hopitalizations: Yes Physical Abuse Screen: No Sexual Abuse: No Immunizations Up To Date Tetanus Booster (TDap): More than 5yrs Past Medical History Past medical history as described below Family Medical History Significant Family History: No Pertinent Family Hx Family Medical Hx Noncontributory Review of Systems Constitutional: see HPI, malaise, weakness EENTM: see HPI, no symptoms reported Respiratory: no symptoms reported, see HPI; No cough; dyspnea on exertion; No hemoptysis, No orthopnea, No phlegm, No short of breath, No stridor, No wheezing , No other Cardiovascular: see HPI; No chest pain; edema; No Hx of Intervention, No palpitations, No syncope, No vascular heart diseas, No other Gastrointestinal: no symptoms reported, see HPI Genitourinary: no symptoms reported, see HPI Musculoskeletal: no symptoms reported, see HPI Skin: no symptoms reported, see HPI Psychiatric/Neurological: No Symptoms Reported, See HPI Reviewed Test Results Reviewed Test Results Lab Laboratory Tests Test 01/12/18 12:25 01/12/18 12:47 Range/Units White Blood Count 6.6 4.3-11.0 10^3/uL Red Blood Count 5.77 4.35-5.85 10^6/uL Hemoglobin 16.8 13.3-17.7 G/DL Hematocrit 51 40-54 % Mean Corpuscular Volume 89 80-99 FL Mean Corpuscular Hemoglobin 29 25-34 PG Mean Corpuscular Hemoglobin Concent 33 32-36 G/DL Red Cell Distribution Width 15.6 H 10.0-14.5 % Platelet Count 170 130-400 10^3/uL Mean Platelet Volume 9.6 7.4-10.4 FL Neutrophils (%) (Auto) 78 H 42-75 % Lymphocytes (%) (Auto) 10 L 12-44 % Monocytes (%) (Auto) 12 0-12 % Eosinophils (%) (Auto) 1 0-10 % Basophils (%) (Auto) 0 0-10 % Neutrophils # (Auto) 5.1 1.8-7.8 X 10^3 Lymphocytes # (Auto) 0.6 L 1.0-4.0 X 10^3 Monocytes # (Auto) 0.8 0.0-1.0 X 10^3 Eosinophils # (Auto) 0.0 0.0-0.3 10^3/uL Basophils # (Auto) 0.0 0.0-0.1 10^3/uL Prothrombin Time 14.1 12.2-14.7 SEC INR Comment 1.1 0.8-1.4 Activated Partial Thromboplast Time 27 24-35 SEC Sodium Level 137 135-145 MMOL/L Potassium Level 4.9 3.6-5.0 MMOL/L Chloride Level 102 98-107 MMOL/L Carbon Dioxide Level 23 21-32 MMOL/L Anion Gap 12 5-14 MMOL/L Blood Urea Nitrogen 25 H 7-18 MG/DL Creatinine 1.49 H 0.60-1.30 MG/DL Estimat Glomerular Filtration Rate 46 BUN/Creatinine Ratio 17 Glucose Level 100 70-105 MG/DL Calcium Level 9.4 8.5-10.1 MG/DL Corrected Calcium 9.4 8.5-10.1 MG/DL Magnesium Level 2.0 1.8-2.4 MG/DL Total Bilirubin 1.6 H 0.1-1.0 MG/DL Aspartate Amino Transf (AST/SGOT) 20 5-34 U/L Alanine Aminotransferase (ALT/SGPT) 20 0-55 U/L Alkaline Phosphatase 110 40-136 U/L Myoglobin 82.4 10.0-92.0 NG/ML Troponin I < 0.30 <0.30 NG/ML B-Type Natriuretic Peptide 3634.8 H <100.0 PG/ML Total Protein 6.6 6.4-8.2 GM/DL Albumin 4.0 3.2-4.5 GM/DL Urine Color YELLOW Urine Clarity CLEAR Urine pH 6 5-9 Urine Specific Florien 1.015 L 1.016-1.022 Urine Protein 3+ H NEGATIVE Urine Glucose (UA) NEGATIVE NEGATIVE Urine Ketones NEGATIVE NEGATIVE Urine Nitrite NEGATIVE NEGATIVE Urine Bilirubin NEGATIVE NEGATIVE Urine Urobilinogen 4 H NORMAL MG/DL Urine Leukocyte Esterase NEGATIVE NEGATIVE Urine RBC (Auto) 2+ H NEGATIVE Urine RBC 5-10 H /HPF Urine WBC NONE /HPF Urine Squamous Epithelial Cells RARE /HPF Urine Crystals NONE /LPF Urine Bacteria TRACE /HPF Urine Casts NONE /LPF Urine Mucus NEGATIVE /LPF Urine Culture Indicated NO Physical Exam Vital Signs Vital Signs - First Documented 01/12/18 12:11 Temp 97.9 Pulse 18 Resp 16 B/P (MAP) 174/123 (140) Pulse Ox 92 O2 Delivery Room Air Capillary Refill : Less Than 3 Seconds Height, Weight, BMI Height: 5'7.00" Weight: 191lbs. 0.0oz. 86.204311uv; 29.9 BMI Method:Stated General Appearance: No Apparent Distress, WD/WN Eyes: Bilateral Eye Normal Inspection, Bilateral Eye PERRL, Bilateral Eye EOMI HEENT: PERRL/EOMI, TMs Normal, Normal ENT Inspection, Pharynx Normal Neck: Full Range of Motion, Normal Inspection, Non Tender, Supple, Carotid Bruit Respiratory: Chest Non Tender, Normal Breath Sounds, No Accessory Muscle Use, No Respiratory Distress, Decreased Breath Sounds Cardiovascular: Regular Rate, Rhythm, Normal Peripheral Pulses, Systolic Murmur , Gallop/S3 Gastrointestinal: Normal Bowel Sounds, No Organomegaly, No Pulsatile Mass, Non Tender, Soft Back: Normal Inspection, No CVA Tenderness, No Vertebral Tenderness Extremity: Normal Capillary Refill, Normal Inspection, Normal Range of Motion, Non Tender, No Calf Tenderness, Pedal Edema Neurologic/Psychiatric: Alert, Oriented x3, No Motor/Sensory Deficits, Normal Mood/Affect Skin: Normal Color, Warm/Dry Lymphatic: No Adenopathy A/P-Cardiology Admission Diagnosis Congestive heart failure Coronary artery disease Hypertension Edema Assessment/Plan Congestive heart failure, acute left ventricular systolic dysfunction, severe cardiomyopathy, probably ischemic in nature. No recent chest pain. Has been progressing over the past 2 weeks. BNP significantly elevated. Aneurysmal apex. I am planning to proceed with cardiac catheterization possible PTCA. Continue on diuretics for now, start beta blockers and Juanito inhibitors. Increased risk of sudden , will need evaluation for LifeVest History of mild alcohol use, educated on avoiding any alcohol products Peripheral edema secondary to heart failure, continue on diuretics. Severe hypertension, I will start beta blockers and JUANITO inhibitor and evaluate tolerance and response. I will evaluate lipid profile Clinical Quality Measures DVT/VTE Risk/Contraindication: Risk Factor Score Per Nursin RFS Level Per Nursing on Admit: 4+=Very High JULIA COMBS MD Jan 12, 2018 16:56
[2018-01-12] MEDS ORDERED: LOSARTAN 25 MG (COZAAR) TAB PO NR (17:00)
[2018-01-12] MEDS: FUROSEMIDE 40 MG/4 ML INJ (LASIX) IV SCH (17:26)
[2018-01-12] MEDS: ENOXAPARIN 40 MG/0.4 ML (LOVENOX) SYR SQ SCH (17:27)
[2018-01-12 19:45] VITALS: BP 138/68
[2018-01-12] MEDS ORDERED: CALCIUM CARBONATE 500 MG (TUMS) TAB.CHEW PO PRN (20:15)
[2018-01-12] MEDS ORDERED: HYDROcodone/APAP 5 MG/325 MG (LORTAB) TAB PO PRN (20:15)
[2018-01-12] MEDS ORDERED: ONDANSETRON 4 MG/2 ML (SDV) Z0FRAN IVP PRN (20:15)
[2018-01-12] MEDS ORDERED: DOCUSATE SODIUM 100 MG (COLACE) CAP PO PRN (20:15)
[2018-01-12] MEDS ORDERED: ALPRAZolam 0.25 MG (XANAX) TAB PO PRN (20:15)
[2018-01-12] MEDS ORDERED: ACETAMINOPHEN 500 MG TAB (TYLENOL) PO PRN (20:15)
[2018-01-12] MEDS: CATHETER FLUSH 10 ML SYR IV SCH (21:29)
[2018-01-13] VITALS (17 sets, daily range): BP systolic 113–167; BP diastolic 62–102
[2018-01-13 05:40] LABS: BASOPHILS % (AUTO) 0 % (0-10); EOSINOPHILS # (AUTO) 0.1 10^3/uL (0.0-0.3); EOSINOPHILS % (AUTO) 1 % (0-10); HEMATOCRIT 45 % (40-54); HEMOGLOBIN 15.6 G/DL (13.3-17.7); LYMPHOCYTES # (AUTO) 0.5 X 10^3 (1.0-4.0); LYMPHOCYTES % (AUTO) 7 % (12-44); MEAN CORPUSCULAR HEMOGLOBIN 30 PG (25-34); MEAN CORPUSCULAR HGB CONC 35 G/DL (32-36); MEAN CORPUSCULAR VOLUME 87 FL (80-99); MEAN PLATELET VOLUME 9.8 FL (7.4-10.4); MONOCYTES % (AUTO) 15 % (0-12); NEUTROPHILS # (AUTO) 5.3 X 10^3 (1.8-7.8); NEUTROPHILS % (AUTO) 77 % (42-75); PLATELET COUNT 172 10^3/uL (130-400); RED BLOOD COUNT 5.21 10^6/uL (4.35-5.85); WHITE BLOOD COUNT 6.9 10^3/uL (4.3-11.0)
[2018-01-13 06:00] LABS: ALANINE AMINOTRANSFERASE 18 U/L (0-55); ALBUMIN 3.3 GM/DL (3.2-4.5); ALKALINE PHOSPHATASE 89 U/L (40-136); BILIRUBIN,TOTAL 1.7 MG/DL (0.1-1.0); BUN/CREATININE RATIO 19; CALCIUM 8.9 MG/DL (8.5-10.1); CARBON DIOXIDE 24 MMOL/L (21-32); CHLORIDE 97 MMOL/L (98-107); CHOLESTEROL 116 MG/DL (< 200); CREATININE SERUM 1.27 MG/DL (0.60-1.30); GFR ESTIMATED 55; GLUCOSE 100 MG/DL (70-105); HDL CHOLESTEROL 46 MG/DL (40-60); MAGNESIUM 1.8 MG/DL (1.8-2.4); POTASSIUM 3.9 MMOL/L (3.6-5.0); SODIUM 135 MMOL/L (135-145); TOTAL PROTEIN 5.4 GM/DL (6.4-8.2); TRIGLYCERIDES 61 MG/DL (<150); VLDL CHOLESTEROL 12 MG/DL (5-40)
[2018-01-13] MEDS: CATHETER FLUSH 10 ML SYR IV SCH ×3 (06:33→22:03)
[2018-01-13] MEDS: FUROSEMIDE 40 MG/4 ML INJ (LASIX) IV SCH ×2 (06:33→16:31)
--- NOTE | 2018-01-13 07:35 | Cardiology Progress Note ---
Subjective Date Seen by Provider: Jan 13, 2018 Time Seen by Provider: 07:33 Subjective/Events-last exam Patient is laying down in bed, feeling better, still having edema, diuresed about 5 L last night Review of Systems General: No Chills, No Night Sweats, No Fatigue, No Malaise, No Appetite, No Other HEENT: No Head Aches, No Visual Changes, No Eye Pain, No Ear Pain, No Dysphasia , No Sinus Congestion, No Post Nasal Drip, No Sore Throat, No Other Pulmonary: Dyspnea; No Cough, No Pleuritic Chest Pain, No Other Cardiovascular: Edema; No: Chest Pain, Palpitations, Orthopnea, Paroxysmal Noc. Dyspnea, Lt Headedness, Other Objective-Cardiology Exam Last Set of Vital Signs Vital Signs 01/13/18 04:00 Temp 97.9 Pulse 69 Resp 16 B/P (MAP) 150/95 (113) Pulse Ox 94 O2 Delivery Room Air Capillary Refill : Less Than 3 Seconds I&O Intake and Output 01/13/18 00:00 Intake Total 540 ml Output Total 5600 ml Balance -5060 ml Intake Oral 540 ml Output Urine Total 5600 ml Daily Weight Change No General: Alert, Oriented X3, Cooperative HEENT: Atraumatic, PERRLA Neck: Supple, No JVD, No Thyromegaly Lungs: Clear to Auscultation, Normal Air Movement Heart: Regular Rate, Normal S1, Normal S2 Abdomen: Normal Bowel Sounds, Soft, No Tenderness, No Hepatosplenomegaly, No Masses Extremities: No Clubbing, No Cyanosis, Normal Pulses, No Tenderness/Swelling, Other (S3 edema) Skin: No Rashes, No Breakdown, No Significant Lesion Neuro: Normal Speech, Strength at 5/5 X4 Ext, Normal Tone, Sensation Intact Psych/Mental Status: Mental Status NL, Mood NL Results Lab Laboratory Tests 01/12/18 12:25 01/13/18 04:57 A/P-Cardiology Admission Diagnosis Congestive heart failure Coronary artery disease Hypertension Edema Assessment/Plan Congestive heart failure, acute left ventricular systolic dysfunction, severe cardiomyopathy, probably ischemic in nature. Planning to proceed with cardiac catheterization. Continue with diuretics and monitor closely Increased risk of sudden , will need evaluation for LifeVest History of mild alcohol use, educated on avoiding any alcohol products Peripheral edema secondary to heart failure, continue on diuretics. Severe hypertension, I will start beta blockers and CANDELARIA inhibitor and evaluate tolerance and response. No hyperlipidemia was noted, total cholesterol 116, LDL 58. Clinical Quality Measures DVT/VTE Risk/Contraindication: Risk Factor Score Per Nursin RFS Level Per Nursing on Admit: 4+=Very High JULIA COMBS MD Jan 13, 2018 07:35
--- NOTE | 2018-01-13 07:35 | Cardiac Procedure Note-CS/ASA ---
Pre-Procedure Note Pre-Op Procedure Note H&P Reviewed The H&P was reviewed, patient examined and no changes noted. Date H&P Reviewed: Jan 13, 2018 Time H&P Reviewed: 07:35 Conscious Sedation Pre-Proced Time 07:35 ASA Score 3 For ASA 3 and 4: Consider anesthesia and medical clearance. Also, for patients with a history of failed moderate sedation consider anesthesia. Airway Lungs Heart ASA score ASA 1: a normal healthy patient ASA 2: a patient with a mild systemic disease (mid diabetes, controlled hypertension, obesity x ASA 3: a patient with a severe systemic disease that limits activity (angina , COPD, prior Myocardial infarction) ASA 4: a patient with an incapacitating disease that is a constant threat to life (CHF, renal failure) ASA 5: a moribund patient not expected to survive 24 hrs. (ruptured aneurysm) ASA 6: a declared brain patient whose organs are being harvested. For emergent operations, add the letter E after the classification Mallampati Classification Grade 3 Sedation Plan Analgesia, Amnesia, Plan communicated to team members, Discussed options with patient/fam, Discussed risks with patient/fam The patient is an appropriate candidate to undergo the planned procedure, sedation, and anesthesia. The patient immediately re-assessed prior to indication. JULIA COMBS MD Jan 13, 2018 07:35
--- NOTE | 2018-01-13 08:00 | Wound Care Assessment ---
Wound Care Assessment Date Seen by Provider: Jan 13, 2018 Time Seen by Provider: 07:55 Chief Complaint R thigh ulcer. HPI The patient is a 77 year old male, admitted for heart failure, with scrotal edema and an abraded area of the R upper medial thigh, most likely related to moisture associated skin damage. will elevate scrotum with a towel and treat moisture injury with Myranda's. Past Medical History: Admits Heart Disease Hx of aplastic anemia. Smoking Status: Never a Smoker Recreational Drug Use: No Alcohol Use: Regular Use Review of Systems Pulmonary: No Dyspnea Cardiovascular: No: Chest Pain Exam Vital Signs Date Time Temp Pulse Resp B/P (MAP) Pulse Ox O2 Delivery O2 Flow Rate FiO2 01/13/18 07:00 66 01/13/18 04:00 97.9 16 150/95 (113) 94 Room Air Capillary Refill : Less Than 3 Seconds General Appearance: no apparent distress Skin: other (abrasion R medial upper thigh, 1 x 2 cm) Dependent scrotal edema present. Results Laboratory Tests 01/12/18 12:25: White Blood Count 6.6, Red Blood Count 5.77, Hemoglobin 16.8, Hematocrit 51, Mean Corpuscular Volume 89, Mean Corpuscular Hemoglobin 29, Mean Corpuscular Hemoglobin Concent 33, Red Cell Distribution Width 15.6H, Platelet Count 170, Mean Platelet Volume 9.6, Neutrophils (%) (Auto) 78H, Lymphocytes (%) (Auto) 10L , Monocytes (%) (Auto) 12, Eosinophils (%) (Auto) 1, Basophils (%) (Auto) 0, Neutrophils # (Auto) 5.1, Lymphocytes # (Auto) 0.6L, Monocytes # (Auto) 0.8, Eosinophils # (Auto) 0.0, Basophils # (Auto) 0.0, Prothrombin Time 14.1, INR Comment 1.1, Activated Partial Thromboplast Time 27, Sodium Level 137, Potassium Level 4.9, Chloride Level 102, Carbon Dioxide Level 23, Anion Gap 12, Blood Urea Nitrogen 25H, Creatinine 1.49H, Estimat Glomerular Filtration Rate 46 , BUN/Creatinine Ratio 17, Glucose Level 100, Calcium Level 9.4, Corrected Calcium 9.4, Magnesium Level 2.0, Total Bilirubin 1.6H, Aspartate Amino Transf ( AST/SGOT) 20, Alanine Aminotransferase (ALT/SGPT) 20, Alkaline Phosphatase 110, Myoglobin 82.4, Troponin I < 0.30, B-Type Natriuretic Peptide 3634.8H, Total Protein 6.6, Albumin 4.0 01/12/18 12:47: Urine Color YELLOW, Urine Clarity CLEAR, Urine pH 6, Urine Specific Hurley 1.015L, Urine Protein 3+H, Urine Glucose (UA) NEGATIVE, Urine Ketones NEGATIVE, Urine Nitrite NEGATIVE, Urine Bilirubin NEGATIVE, Urine Urobilinogen 4H, Urine Leukocyte Esterase NEGATIVE, Urine RBC (Auto) 2+H, Urine RBC 5-10H, Urine WBC NONE, Urine Squamous Epithelial Cells RARE, Urine Crystals NONE, Urine Bacteria TRACE, Urine Casts NONE, Urine Mucus NEGATIVE, Urine Culture Indicated NO 01/13/18 04:57: White Blood Count 6.9, Red Blood Count 5.21, Hemoglobin 15.6, Hematocrit 45, Mean Corpuscular Volume 87, Mean Corpuscular Hemoglobin 30, Mean Corpuscular Hemoglobin Concent 35, Red Cell Distribution Width 15.0H, Platelet Count 172, Mean Platelet Volume 9.8, Neutrophils (%) (Auto) 77H, Lymphocytes (%) (Auto) 7L , Monocytes (%) (Auto) 15H, Eosinophils (%) (Auto) 1, Basophils (%) (Auto) 0, Neutrophils # (Auto) 5.3, Lymphocytes # (Auto) 0.5L, Monocytes # (Auto) 1.0, Eosinophils # (Auto) 0.1, Basophils # (Auto) 0.0, Sodium Level 135, Potassium Level 3.9, Chloride Level 97L, Carbon Dioxide Level 24, Anion Gap 14, Blood Urea Nitrogen 24H, Creatinine 1.27, Estimat Glomerular Filtration Rate 55, BUN/ Creatinine Ratio 19, Glucose Level 100, Calcium Level 8.9, Corrected Calcium 9.5 , Magnesium Level 1.8, Total Bilirubin 1.7H, Aspartate Amino Transf (AST/SGOT) 18, Alanine Aminotransferase (ALT/SGPT) 18, Alkaline Phosphatase 89, Troponin I < 0.30, Total Protein 5.4L, Albumin 3.3, Triglycerides Level 61, Cholesterol Level 116, LDL Cholesterol Direct 58, VLDL Cholesterol 12, HDL Cholesterol 46, Thyroid Stimulating Hormone (TSH) 0.63 Assessment/Plan/Dx 1. Dependent scrotal edema. 2. R thigh moisture associated skin damage. Plan: Elevate scrotum, Myranda's to thigh. CARMELITA LEY MD Jan 13, 2018 08:00
[2018-01-13] MEDS ORDERED: ZINC OXIDE 16% OINT (BUTT PASTE) 113 GM TUBE TOP SCH (10:15)
[2018-01-13] MEDS: LOSARTAN 25 MG (COZAAR) TAB PO SCH ×2 (10:17→16:31)
[2018-01-13] MEDS ORDERED: HEParin (CATH LAB) 2,000 ML IV ONE (10:21)
--- NOTE | 2018-01-13 10:44 | History & Physical-Hospitalist ---
History of Present Illness HPI/Chief Complaint CC: Edema HPI: This is a 77-year-old white male clinic patient of Dr. Tee a [facility] who has a past medical history of aplastic anemia per patient and presbycusis with chronic back pain who presents to the ER after sent to the facility from Dr. Paredes after Dr. Tee sent him to Dr. Paredes for a hernia check. Apparently he was found to have so many issues that he needed to be sent to the ER for further workup. He was found to have severe anasarca with elevated BNP of 3634 and in need of Cardiology evaluation. He reports these never had an issue like this before. He denied any chest pain or shortness of breath or wheezing. Source: patient, RN/MD Exam Limitations: no limitations Date Seen 01/13/18 Time Seen by a Provider: 09:45 Attending Physician Delphine Edward DO [facility] Referring Physician Date of Admission Jan 12, 2018 at 13:37 Home Medications & Allergies Home Medications Reviewed patient Home Medication Reconciliation performed by pharmacy medication reconciliations radiation / chemistry technician and/or nursing. Patients Allergies have been reviewed. 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) Employed/Student: employed Alcohol Use: Regular Use Recreational Drug Use: No Smoking Status: Never a Smoker Physical Abuse Screen: No Sexual Abuse: No Recent Foreign Travel: No Contact w/other who traveled: No Recent Hopitalizations: Yes Recent Infectious Disease Expo: No Immunizations Up To Date Tetanus Booster (TDap): More than 5yrs Past Medical History Cardiac: Hypertension Reproductive: No Genitourinary: Prostate Problems Musculoskeletal: Chronic Back Pain Hearing Impairment: Hard of Hearing History of Blood Disorders: Yes (APLASTIC ANEMIA) Family History Reviewed Nursing Family Hx No Pertinent Family Hx, Hypertension Review of Systems Constitutional: see HPI, weakness EENTM: no symptoms reported Respiratory: no symptoms reported Cardiovascular: edema Gastrointestinal: no symptoms reported Genitourinary: other (testicular edema with wound) Musculoskeletal: muscle pain, muscle stiffness, muscle cramps Skin: no symptoms reported Psychiatric/Neurological: No Symptoms Reported All Other Systems Reviewed Negative Unless Noted: Yes Physical Exam Physical Exam Vital Signs Vital Signs - First Documented 01/12/18 12:11 Temp 97.9 Pulse 18 Resp 16 B/P (MAP) 174/123 (140) Pulse Ox 92 O2 Delivery Room Air Capillary Refill : Less Than 3 Seconds Height, Weight, BMI Height: 5'7.00" Weight: 191lbs. 0.0oz. 86.743882ht; 29.9 BMI Method:Stated General Appearance: No Apparent Distress, WD/WN, Chronically ill, Obese Eyes: Bilateral Eye Normal Inspection, Bilateral Eye PERRL HEENT: PERRL/EOMI, TMs Normal, Normal ENT Inspection, Pharynx Normal Neck: Full Range of Motion, Normal Inspection, Non Tender, Supple, Carotid Bruit Respiratory: Chest Non Tender, Lungs Clear, No Accessory Muscle Use, No Respiratory Distress, Decreased Breath Sounds Cardiovascular: Regular Rate, Rhythm, No Gallop, No JVD, No Murmur, Normal Peripheral Pulses Gastrointestinal: Normal Bowel Sounds, No Organomegaly, No Pulsatile Mass, Non Tender, Soft Back: Normal Inspection, No CVA Tenderness, No Vertebral Tenderness Extremity: Normal Capillary Refill, Normal Inspection, Normal Range of Motion, Non Tender, No Calf Tenderness, Pedal Edema Neurologic/Psychiatric: Alert, Oriented x3, No Motor/Sensory Deficits, Normal Mood/Affect Skin: Normal Color, Warm/Dry Lymphatic: No Adenopathy Results Results/Procedures Labs Laboratory Tests 01/12/18 12:25 01/13/18 04:57 Patient resulted labs reviewed. Assessment/Plan Admission Diagnosis Assessment: New onset anasarca Elevated BNP Systolic dysfunction on echocardiogram of 10 percent of uncertain source Chronic renal insufficiency History of aplastic anemia Admission Status: Inpatient Order (span 2 midnights) Reason for Inpatient Admission: Severe anasarca with CRI and severe systolic dysfunction of heart in need of 3 days inpt Assessment and Plan Plan: Cardiac cath to evaluate the source of the cardiomyopathy Monitor creatinine after cath dye infusion SW consult Dr Kruse appreciated Diagnosis/Problems Diagnosis/Problems (1) Anasarca Status: Acute (2) Systolic CHF Status: Acute Qualifiers: Heart failure chronicity: acute Qualified Codes: I50.21 - Acute systolic ( congestive) heart failure (3) Aplastic anemia Status: Chronic (4) Renal insufficiency Status: Chronic (5) Obesity Status: Chronic Qualifiers: Obesity type: due to excess calories Obesity classification: adult class 1 (BMI 30 - 34.9) Serious obesity comorbidity presence: with serious comorbidity Body mass index: BMI 30.0-30.9 Qualified Codes: E66.09 - Other obesity due to excess calories; Z68.30 - Body mass index (bmi) 30.0-30.9, adult (6) Presbycusis of both ears Status: Chronic (7) Scrotal skin lesion Status: Acute Clinical Quality Measures DVT/VTE Risk/Contraindication: Risk Factor Score Per Nursin RFS Level Per Nursing on Admit: 4+=Very High DELPHINE EDWARD DO Jan 13, 2018 10:44
[2018-01-13] MEDS ORDERED: MIDAZOLAM 5 MG/5 ML (VERSED) VIAL ONE (13:15)
[2018-01-13] MEDS ORDERED: HEParin 1000 UNIT/ML (10ML VIAL) FOR BOLUS ONE (13:15)
[2018-01-13] MEDS ORDERED: fentaNYL INJECTION 100 MCG/2 ML AMP ONE (13:15)
[2018-01-13] MEDS ORDERED: LIDOCAINE 1% INJ 20 ML 20 ML VIAL ONE (13:38)
[2018-01-13] MEDS ORDERED: NS IV 1000 ML 1,000 ML ONE (13:41)
[2018-01-13] MEDS ORDERED: ADENOSINE 3 MG/1 ML (ADENOSCAN) 30ML VIAL IV ONE (14:10)
[2018-01-13] MEDS ORDERED: PATIENT MAY USE OWN MEDS, ALL PO SCH (14:30)
--- NOTE | 2018-01-13 14:33 | Cardiac Cath Report ---
Cardiac Cath Report Physician (s)/Heating And Refrigeration Inspector (s) Physician JULIA COMBS MD Pre-Procedure Diagnosis Pre-Procedure Diagnosis: Congestive heart failure Post-Procedure Note Procedure Start Date: Jan 13, 2018 Name of Procedure: Left heart catheterization Left ventriculogram FFR to the left main and LAD Findings/Procedure Note PROCEDURE NOTE: After explaining the procedure to the patient, all pros and cons were explained , all questions were answered. The patient signed the consent and then he was placed on the cardiac catheterization laboratory. Groin was prepped SL fashion local anesthesia was used. Sheath placed in the right femoral artery. Pablito right and left catheter were used to access the coronary system. Pigtail was used to access the left ventricular cavity. Left ventriculogram was done Patient had a distal left main/ostial LAD lesion that was suspicious to be significant. I gave him 4000 units of heparin, FL guide was used and FFR wire was used, gradient was 0.98 at baseline, given a Wade for 2 minutes and continue to be at 0.98 note changes were noted. At the end of the procedure the sheath was removed. Closure device was used FINDINGS: Hemodynamics LV 173/32, end-diastolic pressure of 32 Aorta 173/90 mean of 120 ANATOMY: Left Main has a distal 50 percent stenosis Left Anterior Descending calcified proximally with ostial 50 percent stenosis, FFR was done to the LAD to evaluate the left main and the ostium of the LAD and it was 0.98 at baseline and after adenosine injection Left Circumflex has 50 percent ostial stenosis nonobstructive disease Right Coronory Artery is dominant artery with mild disease LV Gram is dilated with diffuse left ventricular hypokinesia more pronounced at the anterior wall and anterior apex and true apex systolic function is reduced estimated ejection fraction 30 percent CONCLUSION: 1. Severe nonischemic cardiomyopathy with ejection fraction 30 percent, anterior wall hypokinesia apical akinesia, left ventricular end-diastolic pressure of 32 2. Distal left main coronary artery stenosis ostial LAD with calcification in the LAD, FFR was 0.98 3. Moderate stenosis at the ostium of the circumflex artery, mild disease in the right coronary artery nonobstructive disease DISCUSSION AND RECOMMENDATION: Continue to maximize medical therapy Anesthesia Type: Conscious Sedation Estimated blood loss (mL): 25 ml Contrast Amount: 68 ml Total Radiation Dose: 648 mGy Post-Procedure Diagnosis Post-operative diagnosis: Congestive heart failure, acute left ventricular systolic dysfunction, nonischemic cardiomyopathy Coronary artery disease Peripheral edema Arthritis (1) Anasarca (2) Systolic CHF Qualifiers: Qualified Codes: I50.21 - Acute systolic (congestive) heart failure (3) Aplastic anemia (4) Renal insufficiency (5) Obesity Qualifiers: Qualified Codes: E66.09 - Other obesity due to excess calories; Z68.30 - Body mass index (bmi) 30.0-30.9, adult (6) Presbycusis of both ears (7) Scrotal skin lesion JULIA COMBS MD Jan 13, 2018 14:33
[2018-01-13] MEDS: NS IV 1000 ML 1,000 ML IV SCH (16:42)
[2018-01-13] MEDS: ENOXAPARIN 40 MG/0.4 ML (LOVENOX) SYR SQ SCH (18:19)
[2018-01-14] VITALS (7 sets, daily range): BP systolic 111–171; BP diastolic 56–98
[2018-01-14] MEDS: NS IV 1000 ML 1,000 ML IV SCH (01:34)
[2018-01-14] MEDS: CATHETER FLUSH 10 ML SYR IV SCH ×3 (05:59→21:10)
[2018-01-14] MEDS: FUROSEMIDE 40 MG/4 ML INJ (LASIX) IV SCH (06:00)
[2018-01-14 06:11] LABS: BASOPHILS % (AUTO) 0 % (0-10); EOSINOPHILS % (AUTO) 1 % (0-10); HEMATOCRIT 46 % (40-54); HEMOGLOBIN 15.4 G/DL (13.3-17.7); LYMPHOCYTES # (AUTO) 0.5 X 10^3 (1.0-4.0); LYMPHOCYTES % (AUTO) 9 % (12-44); MEAN CORPUSCULAR HEMOGLOBIN 29 PG (25-34); MEAN CORPUSCULAR HGB CONC 34 G/DL (32-36); MEAN CORPUSCULAR VOLUME 87 FL (80-99); MEAN PLATELET VOLUME 9.8 FL (7.4-10.4); MONOCYTES % (AUTO) 16 % (0-12); NEUTROPHILS # (AUTO) 4.7 X 10^3 (1.8-7.8); NEUTROPHILS % (AUTO) 75 % (42-75); PLATELET COUNT 150 10^3/uL (130-400); RED BLOOD COUNT 5.25 10^6/uL (4.35-5.85); RED CELL DISTRIBUTION WIDTH 14.6 % (10.0-14.5); WHITE BLOOD COUNT 6.3 10^3/uL (4.3-11.0)
[2018-01-14 06:31] LABS: ALBUMIN 3.1 GM/DL (3.2-4.5); BILIRUBIN,TOTAL 1.7 MG/DL (0.1-1.0); CALCIUM 8.5 MG/DL (8.5-10.1); CREATININE SERUM 1.39 MG/DL (0.60-1.30); POTASSIUM 3.6 MMOL/L (3.6-5.0); TOTAL PROTEIN 5.1 GM/DL (6.4-8.2)
--- NOTE | 2018-01-14 07:43 | Cardiology Progress Note ---
Subjective Date Seen by Provider: Jan 14, 2018 Time Seen by Provider: 07:39 Subjective/Events-last exam Patient is laying down in bed, feeling significantly better. No new complaint. Review of Systems General: No Chills, No Night Sweats, No Fatigue, No Malaise, No Appetite, No Other HEENT: No Head Aches, No Visual Changes, No Eye Pain, No Ear Pain, No Dysphasia , No Sinus Congestion, No Post Nasal Drip, No Sore Throat, No Other Pulmonary: No Dyspnea, No Cough, No Pleuritic Chest Pain, No Other Cardiovascular: Edema; No: Chest Pain, Palpitations, Orthopnea, Paroxysmal Noc. Dyspnea, Lt Headedness, Other Objective-Cardiology Exam Last Set of Vital Signs Vital Signs 01/13/18 01/14/18 01/14/18 01/14/18 16:00 04:20 05:41 07:00 Temp 96.8 Pulse 65 Resp 20 B/P (MAP) 138/78 (98) Pulse Ox 95 O2 Delivery Room Air O2 Flow Rate 2.00 Capillary Refill : Less Than 3 Seconds I&O Intake and Output 01/14/18 00:00 Intake Total 900 ml Output Total 6650 ml Balance -5750 ml Intake Oral 900 ml Output Urine Total 6650 ml # Bowel Movements 1 General: Alert, Oriented X3, Cooperative HEENT: Atraumatic, PERRLA Neck: Supple, No JVD, No Thyromegaly Lungs: Clear to Auscultation, Normal Air Movement Heart: Regular Rate, Normal S1, Normal S2 Abdomen: Normal Bowel Sounds, Soft, No Tenderness, No Hepatosplenomegaly, No Masses Extremities: No Clubbing, No Cyanosis, Normal Pulses, No Tenderness/Swelling, Other (Trace edema) Skin: No Rashes, No Breakdown, No Significant Lesion Neuro: Normal Gait, Normal Speech, Strength at 5/5 X4 Ext, Normal Tone, Sensation Intact Psych/Mental Status: Mental Status NL, Mood NL Results Lab Laboratory Tests 01/14/18 05:40 A/P-Cardiology Admission Diagnosis Congestive heart failure Coronary artery disease Hypertension Edema Assessment/Plan Congestive heart failure, acute left ventricular systolic dysfunction, severe cardiomyopathy, cardiac catheterization showed mild to moderate coronary artery disease. Nonischemic cardiomyopathy. Responded well to diuretics, so far lost 13 L over the past 48 hours. I will change Lasix to orally and monitor electrolytes. Coronary artery disease status post cardiac catheterization done on January 13, 2018: 1. Severe nonischemic cardiomyopathy with ejection fraction 30 percent, anterior wall hypokinesia apical akinesia, left ventricular end-diastolic pressure of 32 2. Distal left main coronary artery stenosis ostial LAD with calcification in the LAD, FFR was 0.98 3. Moderate stenosis at the ostium of the circumflex artery, mild disease in the right coronary artery nonobstructive disease Increased risk of sudden , will need evaluation for LifeVest History of mild alcohol use, educated on avoiding any alcohol products Peripheral edema secondary to heart failure, responded well to diuretics, I will decrease the dose Acute on chronic renal insufficiency, slightly worse with aggressive diuresis, I we will decrease the Lasix dose and monitor Severe hypertension, tolerating beta blockers and Juanito inhibitors well. No hyperlipidemia was noted, total cholesterol 116, LDL 58. Clinical Quality Measures DVT/VTE Risk/Contraindication: Risk Factor Score Per Nursin RFS Level Per Nursing on Admit: 4+=Very High JULIA COMBS MD Jan 14, 2018 07:42
[2018-01-14] MEDS: LOSARTAN 50 MG (COZAAR) TAB PO SCH (08:07)
--- NOTE | 2018-01-14 09:58 | Progress Note-Hospitalist ---
Subjective HPI/CC On Admission Date Seen by Provider: Jan 14, 2018 Time Seen by Provider: 09:45 CC: Edema HPI: This is a 77-year-old white male clinic patient of Dr. Tee a [facility] who has a past medical history of aplastic anemia per patient and presbycusis with chronic back pain who presents to the ER after sent to the facility from Dr. Paredes after Dr. Tee sent him to Dr. Paredes for a hernia check. Apparently he was found to have so many issues that he needed to be sent to the ER for further workup. He was found to have severe anasarca with elevated BNP of 3634 and in need of Cardiology evaluation. He reports these never had an issue like this before. He denied any chest pain or shortness of breath or wheezing. Subjective/Events-last exam Cardiac catheterization revealed no significant ischemic changes so this will be classified as nonischemic cardiomyopathy ejection fraction of 10 percent LifeVest will be fitted today Social work consult for possible facility placement versus home health versus some sort of other living arrangements Will order PT and OT Inpatient rehabilitation evaluation Swing bed in case he needs additional creatinine monitoring considering 13 L of diuresis Bladder meds will be given to facilitate discontinuation of the Rivera catheter BM+ Edema much improved Dr Kruse will not need to perform any procedure on the scrotal lesion only protectant Review of Systems General: Fatigue Cardiovascular: Edema Objective Exam Vital Signs Vital Signs Date Time Temp Pulse Resp B/P (MAP) Pulse Ox O2 Delivery O2 Flow Rate FiO2 01/14/18 08:18 97.3 63 16 161/98 (119) 96 Room Air 01/13/18 16:00 2.00 Capillary Refill : Less Than 3 Seconds General Appearance: No Apparent Distress, WD/WN, Chronically ill Respiratory: Chest Non Tender, Lungs Clear, Normal Breath Sounds, No Accessory Muscle Use, No Respiratory Distress Cardiovascular: Regular Rate, Rhythm, No Gallop, No JVD, No Murmur, Normal Peripheral Pulses Extremity: Normal Capillary Refill, Normal Inspection, Normal Range of Motion, Non Tender, No Calf Tenderness, Pedal Edema Neurologic/Psychiatric: Alert, Oriented x3, No Motor/Sensory Deficits, Normal Mood/Affect Skin: Normal Color, Warm/Dry Results/Procedures Lab Laboratory Tests 01/14/18 05:40 Patient resulted labs reviewed. Assessment/Plan Assessment and Plan Assess & Plan/Chief Complaint Assessment: New onset anasarca Nonischemic cardiomyopathy ejection fraction 10 percent confirmed on cardiac catheterization consistent with echocardiogram findings Urinary retention we'll remove Rivera catheter after Urecholine and Pyridium and Flomax started Chronic renal insufficiency Regular alcohol use Debility Social needs Weakness Plan: SW consult appreciated Dr Kruse and Dr Li appreciated DC catheter this afternoon Bladder meds to help resolve retention Diagnosis/Problems Diagnosis/Problems (1) Cardiomyopathy Status: Acute Qualifiers: Cardiomyopathy type: unspecified Qualified Codes: I42.9 - Cardiomyopathy, unspecified (2) Anasarca Status: Acute (3) Systolic CHF Status: Acute Qualifiers: Heart failure chronicity: acute Qualified Codes: I50.21 - Acute systolic ( congestive) heart failure (4) Aplastic anemia Status: Chronic (5) Renal insufficiency Status: Chronic (6) Obesity Status: Chronic Qualifiers: Obesity type: due to excess calories Obesity classification: adult class 1 (BMI 30 - 34.9) Serious obesity comorbidity presence: with serious comorbidity Body mass index: BMI 30.0-30.9 Qualified Codes: E66.09 - Other obesity due to excess calories; Z68.30 - Body mass index (bmi) 30.0-30.9, adult (7) Presbycusis of both ears Status: Chronic (8) Scrotal skin lesion Status: Acute (9) Urinary retention Status: Acute (10) Rivera catheter in place Status: Acute (11) Weakness Status: Acute (12) Debility Status: Acute Clinical Quality Measures DVT/VTE Risk/Contraindication: Risk Factor Score Per Nursin RFS Level Per Nursing on Admit: 4+=Very High KYRIE EDWARD DO Jan 14, 2018 09:58
[2018-01-14] MEDS ORDERED: BETHANECHOL 25 MG (URECHOLINE) TAB PO NR (10:00)
[2018-01-14] MEDS ORDERED: PHENAZOPYRIDINE 100 MG (PYRIDIUM) TABLET PO NR (10:00)
[2018-01-14] MEDS: TAMSULOSIN 0.4 MG (FLOMAX) CAP PO SCH ×2 (10:22→17:01)
[2018-01-14] MEDS: BETHANECHOL 25 MG (URECHOLINE) TAB PO SCH ×3 (11:04→21:10)
--- NOTE | 2018-01-14 11:30 | Pulmonary Consultation ---
History of Present Illness History of Present Illness Date of Consultation 01/14/18 11:25 Time Seen by Provider: 11:25 Date of Admission Reason for Visit: Peripheral edema, shortness of breath History of Present Illness 77yo presented to ED secondary to severe anasarca from Dr. Bello's office. BNP was found to be 3634. No prior episodes like this. Denies CP, wheezing, SOB. Allergies and Home Medications Allergies Coded Allergies: NKANo Known Allergies (Verified Allergy, Unknown, 05/28/06) Home Medications Hydrocodone/Acetaminophen 1 Each Tablet, 1 TAB PO TID PRN for PAIN-MODERATE, ( Reported) Past Anrrqpm-Wwskte-Vhubob Hx Past Med/Social Hx: Reviewed Nursing Past Med/Soc Hx, Reviewed and Corrections made Patient Social History Alcohol Use: Regular Use Recreational Drug Use: No Smoking Status: Never a Smoker Recent Foreign Travel: No Contact w/Someone Who Travel: No Recent Infectious Disease Expo: No Recent Hopitalizations: Yes Immunizations Up To Date Tetanus Booster (TDap): More than 5yrs Past Medical History Surgeries: No Respiratory: No Cardiac: Yes Hypertension Neurological: No Reproductive Disorders: No Genitourinary: Yes (STATES HIS KIDNEYS DON'T WORK RIGHT) Prostate Problems Gastrointestinal: No (HERNIA) Musculoskeletal: No Chronic Back Pain Endocrine: No HEENT: Yes Hearing Impairment: Hard of Hearing Cancer: No Psychosocial: No Integumentary: No Blood Disorders: Yes (APLASTIC ANEMIA) Family Medical History Reviewed Nursing Family Hx No Pertinent Family Hx, Hypertension Sepsis Event Evaluation Height, Weight, BMI Height: 5'7.00" Weight: 174lbs. 4.0oz. 79.181652no; 29.9 BMI Method:Stated Exam Exam Vital Signs Date Time Temp Pulse Resp B/P (MAP) Pulse Ox O2 Delivery O2 Flow Rate FiO2 01/14/18 08:18 97.3 63 16 161/98 (119) 96 Room Air 01/14/18 08:00 Room Air 01/14/18 07:00 65 01/14/18 05:41 138/78 (98) 01/14/18 04:20 96.8 65 20 154/80 (104) 95 Room Air 01/14/18 01:00 65 01/14/18 00:31 97.8 65 20 138/77 (97) 94 Room Air 01/13/18 20:10 96.2 65 20 135/65 (88) 95 Room Air 01/13/18 19:00 62 01/13/18 18:50 61 14 129/68 (88) 94 Room Air 01/13/18 18:00 64 18 113/62 (79) 93 Room Air 01/13/18 17:30 63 15 132/68 (89) 93 Room Air 01/13/18 17:00 71 12 158/101 (120) 96 Room Air 01/13/18 16:30 70 19 167/102 (123) 98 Room Air 01/13/18 16:15 67 12 163/100 (121) 99 Room Air 01/13/18 16:15 67 24 163/100 (121) 99 Room Air 01/13/18 16:00 65 13 166/89 (114) 98 Room Air 01/13/18 16:00 65 16 166/89 (114) 98 Nasal Cannula 2.00 01/13/18 15:45 65 14 165/97 (119) 99 Room Air 01/13/18 15:45 97.6 65 16 165/97 (119) 97 Nasal Cannula 2.00 01/13/18 15:30 66 15 150/82 (104) 99 Room Air 01/13/18 15:30 66 14 150/82 (104) 99 Nasal Cannula 2.00 01/13/18 15:15 65 16 161/94 (116) 97 Room Air 01/13/18 15:15 65 16 161/94 (116) 98 Nasal Cannula 2.00 01/13/18 15:13 64 01/13/18 15:00 62 15 154/90 (111) 96 Nasal Cannula 2.00 01/13/18 15:00 66 16 154/90 (111) 95 Room Air 01/13/18 14:56 146/95 (112) 01/13/18 12:19 98.9 70 16 158/88 (111) 95 Room Air I & O 01/14/18 07:00 Intake Total 1200 ml Output Total 5950 ml Balance -4750 ml Height & Weight Height: 5'7.00" Weight: 174lbs. 4.0oz. 79.208611lp; 29.9 BMI Method:Stated General Appearance: No Apparent Distress, WD/WN, Chronically ill HEENT: PERRL/EOMI, TMs Normal, Normal ENT Inspection, Pharynx Normal Neck: Full Range of Motion, Normal Inspection, Non Tender, Supple, Carotid Bruit Respiratory: Chest Non Tender, Lungs Clear, Normal Breath Sounds, No Accessory Muscle Use, No Respiratory Distress Cardiovascular: Regular Rate, Rhythm, No Gallop, No JVD, No Murmur, Normal Peripheral Pulses Capillary Refill: Less Than 3 Seconds Extremity: Normal Capillary Refill, Normal Inspection, Normal Range of Motion, Non Tender, No Calf Tenderness, Pedal Edema Neurologic/Psychiatric: Alert, Oriented x3, No Motor/Sensory Deficits, Normal Mood/Affect Skin: Normal Color, Warm/Dry Lymphatic: No Adenopathy Results Lab Laboratory Tests 01/12/18 12:25 01/13/18 04:57 01/14/18 05:40 Assessment/Plan Assessment/Plan nonischemic Cardiomyopathy/systolic CHF with EF of 30% -Lasix -Cardiology is following and working on getting a life vest probable GLEN -Out patient testing CAD Anasarca chronic Renal failure weakness/debility VALERIE MCFARLANE DO Jan 14, 2018 11:30
--- NOTE | 2018-01-14 11:57 | Physical Therapy Evaluation ---
PT Evaluation-General Medical Diagnosis Admission Date Jan 12, 2018 at 13:37 Medical Diagnosis: CHF/scrotal wound Onset Date: Jan 12, 2018 Therapy Diagnosis Therapy Diagnosis: General Weakness Height/Weight Height (Feet): 5 Height (Inches): 7.00 Weight (Pounds): 174 Weight (Ounces): 4.0 Precautions Precautions/Isolations: Fall Prevention, Standard Precautions Weight Bear Status Full Weight Bearing Left Lower Extremity: Left Full Weight Bearing Referral Physician: Nic Reason for Referral: Evaluation/Treatment Medical History Pertinent Medical History: Heart Failure, HTN, Renal Insufficiency Additional Medical History aplastic anemia Current History Patient currently lives in apartment on a single level with his daughter. Pt reports that he must take one step into home with a post to grab on to for stability. Social History Home: Single Level Current Living Status: Children PT Steps Into Home: 1 PT Steps Inside Home: 0 Patient currently lives with daughter in a single level apartment. Prior/Core FIM Prior Level of Function Functional [place] Measure 0=Not Assessed/NA 4=Minimal Assistance 1=Total Assistance 5=Supervision or Setup 2=Maximal Assistance 6=Modified [place] 3=Moderate Assistance 7=Complete IndependenceIRFPAI Quality Coding Scale 6 Independent with activity with or without an assistive device 5 Patient requires set up or clean up by helper. Patient completes activity by themselves 4 Supervision or touching assist (CGA). [place] provide cues , steadying assist 3 The helper provides less than half the effort to complete the activity 2 The helper provides more than half the effort to complete the activity 1 Dependent. The helper does all the effort to complete an activity 7 Patient refused to complete or attempt activity 9 The patient did not perform the activity before the current illness or injury 88 Not attempted due to Medical conditions or safety concerns Transfers (B,C,W/C) (FIM): 7 Gait: 7 Stairs: 7 PT Evaluation-Current Subjective Patient was awake in chair when PT arrived. PT agreed to get up and walk for therapy. Pain Numeric Pain Scale: 0-No Pain Location: No Pain Reported Objective Patient Orientation: Normal For Age Problem Solving: Fair Attachments: Rivera Catheter ROM/Strength ROM Upper Extremities WNL ROM Lower Extremities WNL Strength Upper Extremities WNL Strength Lower Extremities WNL BLE Integumentary/Posture Bowel Incontinence: No Bladder Incontinence: No Neuromuscular (Tone, Coordination, Reflexes) Tone, Reflexes and Coordination all WNL Sensory Vision: Functional Hearing: Impaired Sensation Left Upper Extremity: Intact Sensation Right Lower Extremit: Intact Sensation Left Lower Extremity: Intact Transfers Functional [place] Measure 0=Not Assessed/NA 4=Minimal Assistance 1=Total Assistance 5=Supervision or Setup 2=Maximal Assistance 6=Modified [place] 3=Moderate Assistance 7=Complete [place] Transfers (B, C, W/C) (FIM): 7 Scootin Sit to/from Stand: 7 Gait Mode of Locomotion: Walk Gait (FIM): 7 Distance (FIM): 3=150 ft Distance: 600' Gait Level of Assist: 7 Gait Assistive Device: None Stairs Stairs (FIM): 5 (household level) #of Steps: 8 Level of Assist: 6 Reciprocal gait when ascending stairs and step to when descending stairs Balance Sitting Static: Normal Sitting Dynamic: Normal Standing Static: Normal Standing Dynamic: Good Assessment/Needs Patient was able to follow directions and complete task in a timely manner. Patient was able to safely ambulate for 600'ft and walk up and down 8 steps in stair well. Pt PLOF is independent in all gross motor skills and does not require PT. Rehab Potential: Good PT Plan Treatment/Plan Treatment Plan: Discontinue PT, goals met Treatment Plan: Other Treatment Duration: Jan 14, 2018 Frequency: 1 time per week Estimated Hrs Per Day: .25 hour per day Patient and/or Family Agrees t: Yes Time/GCodes Time In: 1131 Time Out: 1146 Total Billed Treatment Time: 15 Total Billed Treatment 1 visit EVlowC - 15 mins YARON LISA PT Jan 14, 2018 11:57
[2018-01-14] MEDS: PHENAZOPYRIDINE 100 MG (PYRIDIUM) TABLET PO SCH ×2 (13:36→17:01)
[2018-01-14] MEDS: ENOXAPARIN 40 MG/0.4 ML (LOVENOX) SYR SQ SCH (17:01)
[2018-01-14] MEDS: FUROSEMIDE 20 MG (LASIX) TAB PO SCH (17:01)
[2018-01-15] VITALS: BP 147/73
[2018-01-15 04:49] VITALS: BP_SYST 135; BP_SYST 144; BP_DIAS 77; BP_DIAS 97
[2018-01-15 05:56] LABS: BASOPHILS % (AUTO) 0 % (0-10); EOSINOPHILS # (AUTO) 0.1 10^3/uL (0.0-0.3); EOSINOPHILS % (AUTO) 1 % (0-10); HEMATOCRIT 46 % (40-54); HEMOGLOBIN 15.6 G/DL (13.3-17.7); LYMPHOCYTES # (AUTO) 0.5 X 10^3 (1.0-4.0); LYMPHOCYTES % (AUTO) 10 % (12-44); MEAN CORPUSCULAR HEMOGLOBIN 30 PG (25-34); MEAN CORPUSCULAR HGB CONC 34 G/DL (32-36); MEAN CORPUSCULAR VOLUME 87 FL (80-99); MEAN PLATELET VOLUME 9.4 FL (7.4-10.4); MONOCYTES # (AUTO) 0.8 X 10^3 (0.0-1.0); MONOCYTES % (AUTO) 16 % (0-12); NEUTROPHILS # (AUTO) 3.8 X 10^3 (1.8-7.8); NEUTROPHILS % (AUTO) 74 % (42-75); PLATELET COUNT 165 10^3/uL (130-400); RED BLOOD COUNT 5.26 10^6/uL (4.35-5.85); RED CELL DISTRIBUTION WIDTH 14.8 % (10.0-14.5); WHITE BLOOD COUNT 5.2 10^3/uL (4.3-11.0)
[2018-01-15 06:10] LABS: ALANINE AMINOTRANSFERASE 16 U/L (0-55); ALBUMIN 3.1 GM/DL (3.2-4.5); ALKALINE PHOSPHATASE 81 U/L (40-136); BILIRUBIN,TOTAL 1.2 MG/DL (0.1-1.0); BUN/CREATININE RATIO 18; CALCIUM 8.5 MG/DL (8.5-10.1); CARBON DIOXIDE 27 MMOL/L (21-32); CHLORIDE 96 MMOL/L (98-107); CREATININE SERUM 1.13 MG/DL (0.60-1.30); GFR ESTIMATED > 60; GLUCOSE 97 MG/DL (70-105); MAGNESIUM 1.7 MG/DL (1.8-2.4); POTASSIUM 3.2 MMOL/L (3.6-5.0); SODIUM 134 MMOL/L (135-145); TOTAL PROTEIN 4.4 GM/DL (6.4-8.2)
[2018-01-15] MEDS: BETHANECHOL 25 MG (URECHOLINE) TAB PO SCH ×2 (06:14→10:12)
[2018-01-15] MEDS: FUROSEMIDE 20 MG (LASIX) TAB PO SCH (06:14)
[2018-01-15] MEDS: CATHETER FLUSH 10 ML SYR IV SCH (06:15)
[2018-01-15 07:00] VITALS: BP 142/69
[2018-01-15] MEDS ORDERED: KCL 20 MEQ TAB (K-DUR) PO NR (08:15)
[2018-01-15] MEDS ORDERED: METO-387 PO (08:16)
[2018-01-15] MEDS ORDERED: LOSA50TA7 PO (08:16)
[2018-01-15] MEDS ORDERED: FURO-124 PO (08:16)
[2018-01-15] MEDS ORDERED: POTA-51 PO (08:21)
--- NOTE | 2018-01-15 08:24 | Cardiology Progress Note ---
Subjective Date Seen by Provider: Jan 15, 2018 Time Seen by Provider: 08:22 Subjective/Events-last exam Patient is laying down in bed, feeling better, edema is better. No chest pain. Review of Systems General: No Chills, No Night Sweats; Fatigue; No Malaise, No Appetite, No Other HEENT: No Head Aches, No Visual Changes, No Eye Pain, No Ear Pain, No Dysphasia , No Sinus Congestion, No Post Nasal Drip, No Sore Throat, No Other Pulmonary: No Dyspnea, No Cough, No Pleuritic Chest Pain, No Other Cardiovascular: Edema; No: Chest Pain, Palpitations, Orthopnea, Paroxysmal Noc. Dyspnea, Lt Headedness, Other Objective-Cardiology Exam Last Set of Vital Signs Vital Signs 01/13/18 01/15/18 16:00 04:49 Temp 97.5 Pulse 60 Resp 16 B/P (MAP) 135/77 (96) Pulse Ox 92 O2 Delivery Room Air O2 Flow Rate 2.00 Capillary Refill : Less Than 3 Seconds I&O Intake and Output 01/15/18 00:00 Intake Total 2350 ml Output Total 4900 ml Balance -2550 ml Intake Oral 1950 ml IV Total 400 ml Output Urine Total 4900 ml # Bowel Movements 2 General: Alert, Oriented X3, Cooperative HEENT: Atraumatic, PERRLA Neck: Supple, No JVD, No Thyromegaly Lungs: Clear to Auscultation, Normal Air Movement Heart: Regular Rate, Normal S1, Normal S2 Abdomen: Normal Bowel Sounds, Soft, No Tenderness, No Hepatosplenomegaly, No Masses Extremities: No Clubbing, No Cyanosis, Normal Pulses, No Tenderness/Swelling, Other (Trace edema) Skin: No Rashes, No Breakdown, No Significant Lesion Neuro: Normal Gait, Normal Speech, Strength at 5/5 X4 Ext, Normal Tone, Sensation Intact Psych/Mental Status: Mental Status NL, Mood NL Results Lab Laboratory Tests 01/15/18 05:36 A/P-Cardiology Admission Diagnosis Congestive heart failure Coronary artery disease Hypertension Edema Assessment/Plan Congestive heart failure, acute left ventricular systolic dysfunction, severe cardiomyopathy, cardiac catheterization showed mild to moderate coronary artery disease. Nonischemic cardiomyopathy. Responded well to diuretics, Ok for discharge, follow up as an outpatient Coronary artery disease status post cardiac catheterization done on January 13, 2018: 1. Severe nonischemic cardiomyopathy with ejection fraction 30 percent, anterior wall hypokinesia apical akinesia, left ventricular end-diastolic pressure of 32 2. Distal left main coronary artery stenosis ostial LAD with calcification in the LAD, FFR was 0.98 3. Moderate stenosis at the ostium of the circumflex artery, mild disease in the right coronary artery nonobstructive disease Increased risk of sudden , will need evaluation for LifeVest History of mild alcohol use, educated on avoiding any alcohol products Peripheral edema secondary to heart failure, responded well to diuretics, I will decrease the dose Acute on chronic renal insufficiency, slightly worse with aggressive diuresis, I we will decrease the Lasix dose and monitor Severe hypertension, tolerating beta blockers and Juanito inhibitors well. No hyperlipidemia was noted, total cholesterol 116, LDL 58. Ok for discharge and follow up with me in 2 weeks Clinical Quality Measures DVT/VTE Risk/Contraindication: Risk Factor Score Per Nursin RFS Level Per Nursing on Admit: 4+=Very High JULIA COMBS MD Jan 15, 2018 08:24
[2018-01-15] MEDS ORDERED: MAGNESIUM OXIDE (MAG-OX)400 MG TAB PO NR (08:30)
[2018-01-15] MEDS: LOSARTAN 50 MG (COZAAR) TAB PO SCH (08:32)
[2018-01-15] MEDS: PHENAZOPYRIDINE 100 MG (PYRIDIUM) TABLET PO SCH ×2 (08:32→13:23)
--- NOTE | 2018-01-15 08:56 | Pulmonary Progress Note ---
Subjective Time Seen by a Provider: 10:11 Subjective/Events-last exam PT has life vest on. Sepsis Event Evaluation Height, Weight, BMI Height: 5'7.00" Weight: 174lbs. 3.0oz. 79.182108ev; 29.9 BMI Method:Stated Exam Exam Vital Signs Date Time Temp Pulse Resp B/P (MAP) Pulse Ox O2 Delivery O2 Flow Rate FiO2 01/15/18 04:49 97.5 60 16 135/77 (96) 92 Room Air 01/15/18 01:00 73 01/15/18 00:00 97.8 72 14 147/73 (97) 94 Room Air 01/14/18 20:05 98.2 59 20 111/56 (74) 93 Room Air 01/14/18 19:59 66 01/14/18 16:05 97.3 66 24 146/72 (96) 98 Room Air 01/14/18 13:00 77 01/14/18 12:00 97.5 78 20 171/87 (115) 95 Room Air I & O 01/15/18 07:00 Intake Total 2250 ml Output Total 4150 ml Balance -1900 ml Height & Weight Height: 5'7.00" Weight: 174lbs. 3.0oz. 79.361592pl; 29.9 BMI Method:Stated General Appearance: No Apparent Distress, WD/WN, Chronically ill HEENT: PERRL/EOMI, TMs Normal, Normal ENT Inspection, Pharynx Normal Neck: Full Range of Motion, Normal Inspection, Non Tender, Supple, Carotid Bruit Respiratory: Chest Non Tender, Lungs Clear, Normal Breath Sounds, No Accessory Muscle Use, No Respiratory Distress Cardiovascular: Regular Rate, Rhythm, No Gallop, No JVD, No Murmur, Normal Peripheral Pulses Capillary Refill: Less Than 3 Seconds Extremity: Normal Capillary Refill, Normal Inspection, Normal Range of Motion, Non Tender, No Calf Tenderness, Pedal Edema Neurologic/Psychiatric: Alert, Oriented x3, No Motor/Sensory Deficits, Normal Mood/Affect Skin: Normal Color, Warm/Dry Lymphatic: No Adenopathy Results Lab Laboratory Tests 01/14/18 05:40 01/15/18 05:36 Assessment/Plan Assessment/Plan nonischemic Cardiomyopathy/systolic CHF with EF of 30% -Lasix -Cardiology is following and working on getting a life vest probable GLEN -Out patient testing CAD Littlesarca chronic Renal failure weakness/debility VALERIE MCFARLANE DO Jan 15, 2018 08:56
[2018-01-15 10:19] LABS: ABG BASE EXCESS 7.8 MMOL/L (-2.5-2.5); ABG OXYGEN SATURATION 96 % (94-100); ABG PCO2 41 MMHG (35-45); ABG PH 7.49 (7.37-7.43); ABG PO2 73 MMHG (79-93); ABG TCO2 32.9 MMOL/L (21.0-31.0); ALLENS TEST YES-POS; INSPIRED O2 RA; PATIENT TEMP 97.7; VENTILATOR NO
--- NOTE | 2018-01-15 11:18 | Discharge Summary-Hospitalist ---
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 (8) Scrotal skin lesion Status: Acute (9) Urinary retention Status: Acute (10) Rivera catheter in place Status: Acute (11) Weakness Status: Acute (12) Debility Status: Acute Discharge Summary Discharge Physical Exam Allergies: Coded Allergies: NKANo Known Allergies (Verified Allergy, Unknown, 05/28/06) Vitals & I&Os Vital Signs Date Time Temp Pulse Resp B/P (MAP) Pulse Ox O2 Delivery O2 Flow Rate FiO2 01/15/18 08:00 95 Room Air 2.00 01/15/18 07:00 77 01/15/18 07:00 97.8 16 142/69 (93) General Appearance: No Apparent Distress, WD/WN, Chronically ill Respiratory: Chest Non Tender, Lungs Clear, Normal Breath Sounds, No Accessory Muscle Use, No Respiratory Distress Cardiovascular: Regular Rate, Rhythm, No Gallop, No JVD, No Murmur, Normal Peripheral Pulses Extremity: Pedal Edema Neurologic/Psychiatric: Alert, Oriented x3, No Motor/Sensory Deficits, Normal Mood/Affect Hospital Course Hospital course: patient had a standard hospital course. He was admitted for anasarca and elevated BNP and ECHO revealed EF 10% so he underwent cath revealing only mild CAD so life vest was fitted and placed for nonischemic cardiomyopathy. Pt was deemed stable for DC so HH was set up and will have close f/u with [facility] and Dr Li. Labs (last 24 hrs) Laboratory Tests 01/15/18 05:36: White Blood Count 5.2, Red Blood Count 5.26, Hemoglobin 15.6, Hematocrit 46, Mean Corpuscular Volume 87, Mean Corpuscular Hemoglobin 30, Mean Corpuscular Hemoglobin Concent 34, Red Cell Distribution Width 14.8H, Platelet Count 165, Mean Platelet Volume 9.4, Neutrophils (%) (Auto) 74, Lymphocytes (%) (Auto) 10L , Monocytes (%) (Auto) 16H, Eosinophils (%) (Auto) 1, Basophils (%) (Auto) 0, Neutrophils # (Auto) 3.8, Lymphocytes # (Auto) 0.5L, Monocytes # (Auto) 0.8, Eosinophils # (Auto) 0.1, Basophils # (Auto) 0.0, Sodium Level 134L, Potassium Level 3.2L, Chloride Level 96L, Carbon Dioxide Level 27, Anion Gap 11, Blood Urea Nitrogen 20H, Creatinine 1.13, Estimat Glomerular Filtration Rate > 60, BUN /Creatinine Ratio 18, Glucose Level 97, Calcium Level 8.5, Corrected Calcium 9.2 , Magnesium Level 1.7L, Total Bilirubin 1.2H, Aspartate Amino Transf (AST/SGOT) 19, Alanine Aminotransferase (ALT/SGPT) 16, Alkaline Phosphatase 81, B-Type Natriuretic Peptide 2645.9H, Total Protein 4.4L, Albumin 3.1L 01/15/18 10:09: Blood Gas Puncture Site L RAD, Blood Gas Patient Temperature 97.7, Arterial Blood pH 7.49H, Arterial Blood Partial Pressure CO2 41, Arterial Blood Partial Pressure O2 73L, Arterial Blood HCO3 32H, Arterial Blood Total CO2 32.9H, Arterial Blood Oxygen Saturation 96, Arterial Blood Base Excess 7.8H, Gary Test YES-POS, Blood Gas Ventilator Setting NO, Blood Gas Inspired Oxygen RA Microbiology 01/12/18 MRSA Screen - Final, Complete MRSA not isolated Patient resulted labs reviewed. Pending Labs Laboratory Tests 01/15/18 05:36: White Blood Count 5.2, Red Blood Count 5.26, Hemoglobin 15.6, Hematocrit 46, Mean Corpuscular Volume 87, Mean Corpuscular Hemoglobin 30, Mean Corpuscular Hemoglobin Concent 34, Red Cell Distribution Width 14.8, Platelet Count 165, Mean Platelet Volume 9.4, Neutrophils (%) (Auto) 74, Lymphocytes (%) (Auto) 10, Monocytes (%) (Auto) 16, Eosinophils (%) (Auto) 1, Basophils (%) (Auto) 0, Neutrophils # (Auto) 3.8, Lymphocytes # (Auto) 0.5, Monocytes # (Auto) 0.8, Eosinophils # (Auto) 0.1, Basophils # (Auto) 0.0, Sodium Level 134, Potassium Level 3.2, Chloride Level 96, Carbon Dioxide Level 27, Anion Gap 11, Blood Urea Nitrogen 20, Creatinine 1.13, Estimat Glomerular Filtration Rate > 60, BUN/ Creatinine Ratio 18, Glucose Level 97, Calcium Level 8.5, Corrected Calcium 9.2 , Magnesium Level 1.7, Total Bilirubin 1.2, Aspartate Amino Transf (AST/SGOT) 19 , Alanine Aminotransferase (ALT/SGPT) 16, Alkaline Phosphatase 81, B-Type Natriuretic Peptide 2645.9, Total Protein 4.4, Albumin 3.1 01/15/18 10:09: Blood Gas Puncture Site L RAD, Blood Gas Patient Temperature 97.7, Arterial Blood pH 7.49, Arterial Blood Partial Pressure CO2 41, Arterial Blood Partial Pressure O2 73, Arterial Blood HCO3 32, Arterial Blood Total CO2 32.9, Arterial Blood Oxygen Saturation 96, Arterial Blood Base Excess 7.8, Gary Test YES-POS, Blood Gas Ventilator Setting NO, Blood Gas Inspired Oxygen RA Discussion & Recommendations Discharge Planning: <30 minutes discharge planning Discharge Home Medications: Active Scripts Active Potassium Chloride 20 Meq Tablet.er 20 Meq PO DAILY Lasix (Furosemide) 40 Mg Tablet 40 Mg PO DAILY Losartan Potassium 50 Mg Tablet 50 Mg PO DAILY Metoprolol Succinate 25 Mg Tab.er.24h 25 Mg PO DAILY Reported Hydrocodone-Acetamin 5-325 mg (Hydrocodone/Acetaminophen) 1 Each Tablet 1 Tab PO TID PRN Instructions to patient/family Please see electronic discharge instructions given to patient. Clinical Quality Measures DVT/VTE Risk/Contraindication: Risk Factor Score Per Nursin RFS Level Per Nursing on Admit: 4+=Very High Problem Qualifiers (1) Cardiomyopathy: Cardiomyopathy type: unspecified Qualified Codes: I42.9 - Cardiomyopathy, unspecified (2) Systolic CHF: Heart failure chronicity: acute Qualified Codes: I50.21 - Acute systolic ( congestive) heart failure (3) Obesity: Obesity type: due to excess calories Obesity classification: adult class 1 ( BMI 30 - 34.9) Serious obesity comorbidity presence: with serious comorbidity Body mass index: BMI 30.0-30.9 Qualified Codes: E66.09 - Other obesity due to excess calories; Z68.30 - Body mass index (bmi) 30.0-30.9, adult KYRIE EDWARD DO Jan 15, 2018 11:18
--- NOTE | 2018-01-15 11:22 | D/C HH Face to Face Order ---
D/C Face to Face Orders Instructions for Patient Via [facility], Patient Instructions/FollowUp: Dr Tee , 01/21/18 at 1140am Physician to follow Patient: Dr Tee Discharge Diet for Home: Cardiac Diet, Low Sodium Diet Patient Problems: New onset cardiomyopathy EF 10% requiring lifevest Edema Scrotal lesion Goals for Patient: Medication monitoring Life vest monitoring Patient Data-Allergies,Ht & Wt Patient Allergies: Coded Allergies: NKANo Known Allergies (Verified Allergy, Unknown, 05/28/06) Height (Feet): 5 Height (Inches): 7.00 Weight (Pounds): 174 Weight (Ounces): 3.0 Home Health Need/Face to Face Date of Face to Face: Jan 15, 2018 Clinical Findings: Generalized weakness and fatigue I have seen Pt [id number]: Yes Discharged To: Home Diagnosis/Conditions: New onset cardiomyopathy EF 10% requiring lifevest Edema Scrotal lesion Patient is Homebound due to: CognItive deficits, Shortness of breath/distress Homebound Status Due to the above stated illness, injury or surgical procedure (medical condition or diagnosis) and associated clinical findings, the patient is homebound because of his/her inability to leave home except with aid of a supportive device and/or person AND leaving the home requires a considerable and taxing effort or is medically contraindicated. Pt req the following assistanc: Aid of another person Home Health Nursing Orders Home Health Services Order: Nursing Services Home Health Infusion Therapy Line Type: Saline Lock Site Location: Antecubital Certify Stmt I certify that this patient is under my care and that I, a nurse practitioner or a physician; a personal injury legal assistant working with me, had a face to face encounter that - meets the physician face to face encounter requirements with this patient as dated. KYRIE EDWARD DO Jan 15, 2018 11:22
[2018-01-15 13:45] VITALS: BP 142/69
[2018-01-15] MEDS ORDERED: MAGNESIUM OXIDE (MAG-OX)400 MG TAB PO SCH (18:00)
== END 2018-01-15 13:45 | disposition home health service (06) | DRG 286 ==
LOC: EDUNIT# 12:10 → ER 12:12 → 4TH 13:37 → ICU 01-13 15:30 → 4TH 01-13 19:20
PROVIDERS: ADMIT Internal Medicine; ATTEND Internal Medicine
PROC: 4A023N7 Measurement of Cardiac Sampling and Pressure, Left Heart, Percutaneous Approach (ICD-10-PCS; principal; 2018-01-13)
PROC: B2111ZZ Fluoroscopy of Multiple Coronary Arteries using Low Osmolar Contrast (ICD-10-PCS; 2018-01-13)
PROC: B2151ZZ Fluoroscopy of Left Heart using Low Osmolar Contrast (ICD-10-PCS; 2018-01-13)
PROC: 4A033BC Measurement of Arterial Pressure, Coronary, Percutaneous Approach (ICD-10-PCS; 2018-01-13)
DX: I13.0 Hypertensive heart and chronic kidney disease with heart failure and stage 1 through stage 4 chronic kidney disease, or unspecified chronic kidney disease (principal); I50.21 Acute systolic (congestive) heart failure; N18.9 Chronic kidney disease, unspecified; N42.9 Disorder of prostate, unspecified; N50.89 Other specified disorders of the male genital organs; D61.9 Aplastic anemia, unspecified; I25.10 Atherosclerotic heart disease of native coronary artery without angina pectoris; I42.9 Cardiomyopathy, unspecified; R33.9 Retention of urine, unspecified; N28.9 Disorder of kidney and ureter, unspecified; L98.9 Disorder of the skin and subcutaneous tissue, unspecified; M54.9 Dorsalgia, unspecified; H91.13 Presbycusis, bilateral; Z86.2 Personal history of diseases of the blood and blood-forming organs and certain disorders involving the immune mechanism; E66.9 Obesity, unspecified; Z72.89 Other problems related to lifestyle; Z68.27 Body mass index [BMI] 27.0-27.9, adult; Z23 Encounter for immunization
CPT/HCPCS: 36415; 36600; 51702; 71045; 80053; 80061; 81000; 82805; 83735; 83874; 83880; 84443; 84484; 85025; 85347; 85610; 85730; 87081; 90471; 90686; 93005; 93041; 93306; 93458; 96374; 96375

== ENCOUNTER 2018-01-29 17:21 | Inpatient (IN) | payer MEDICARE ==
[~2018-01-29] VITALS: Ht 175.3 cm; Wt 74.5 kg
[~2018-01-29 17:21] MED LIST changes: +FURO-124 PO; +HYDR-3812 PO; +LOSA50TA7 PO; +METO-387 PO; +POTA-51 PO
--- OUTSIDE RECORDS SUMMARY | 2018-01-29 17:28 | XMS REPORT ---
Author Author RONAL CAMARGO Organization [facility] Address [address] [place] [address] Care Team Providers Care Masseur/Masseuse Name Role Phone RONAL CAMARGO Unavailable PROBLEMS Type Condition ICD9-CM Code HVG14-GA Code Onset Dates Condition Status SNOMED Code Problem Hypertension I10 Active 49097046 Problem Pure hypercholesterolemia E78.00 Active 871544983 Problem Arthritis M19.90 Active 3851509 Problem Back pain M54.9 Active 008503827 Problem Chronic kidney disease, unspecified CKD stage N18.9 Active 711992679 Problem Acute systolic congestive heart failure I50.21 Active 876389902 Problem Prostatism N40.0 Active 05134367 Problem Other chronic pain G89.29 Active 48157892 Problem Right inguinal hernia K40.90 Active 302294507 Problem Functional diarrhea K59.1 Active 95604502 ALLERGIES No Information ENCOUNTERS Encounter Location Date Diagnosis [place] [id number] [address]- [address] Jan, Chronic kidney disease, unspecified CKD stage N18.9 [facility] [address] [place] [id number] [place] [address] 66106- 3772 Jan, Chronic kidney disease, unspecified CKD stage N18.9 [facility] [id number] [place] [address] 02386- 6122 Jan, Acute systolic congestive heart failure I50.21 ; Hypertension I10 and Back pain M54.9 [facility] [address] 81489- 3083 Dec, [facility] [id number] [place] [address] 97322- 4192 Dec, [facility] [address] 84037- 4249 Dec, [facility] [id number] [place] [address] 25725- 6798 Dec, [facility] [id number] [place] [address] 80853- 5205 Dec, Right inguinal hernia K40.90 and Edema, unspecified type R60.9 [facility] [address] 89996- 6682 Dec, Back pain M54.9 [facility] [id number] [place] [address] 95247- 5883 Nov, Back pain M54.9 [facility] [address] [place] [id number] [place] [address] 88956- 4641 Oct, Back pain M54.9 [facility] [address] [id number] [place] [address] 85717- 0358 Oct, [facility] [id number] [place] [address] 59129- 3818 Sep, Back pain M54.9 [facility] [id number] [place] [address] 68493- 2392 Aug, Back pain M54.9 ; Prostatism N40.0 ; Functional diarrhea K59.1 and Right inguinal hernia K40.90 [facility] [id number] [place] [address] 80811- 4193 July, Other chronic pain G89.29 [facility] [id number] [place] [address] 06479- 7792 Jun, Other chronic pain G89.29 [facility] [id number] [place] [address] 91739- 6583 May, Other chronic pain G89.29 [facility] [id number] [place] [address] 85238- 1537 Apr, Other chronic pain G89.29 [facility] [address] [address]- 0455 Mar, Other chronic pain G89.29 [facility] [id number] [place] [address] 24519- 9229 Feb, Other chronic pain G89.29 [facility] [address], [place] [address] Feb, Acute upper respiratory infection, unspecified J06.9 and Other viral agents as the cause of diseases classified elsewhere B97.89 [facility] [address] [id number] [place] [address] 46049- 2598 Jan, [facility] [id number] [place] [address] 49250- 3304 Jan, Back pain M54.9 and Prostatism N40.0 [facility] [address] [id number] [place] [address] 13096- 8300 Jan, Other chronic pain G89.29 [facility] [address] [id number] [place] [address] 84283- 4303 Dec, [facility] [address] [id number] [place] [address] 70940- 1886 Dec, Other chronic pain G89.29 [facility] [address] [id number] [place] [address] 46122- 9559 Nov, Other chronic pain G89.29 [facility] [address] [id number] [place] [address] 16389- 5443 Nov, Encounter for immunization Z23 [facility] [address] [place] [id number] [place] [address] 66394- 4104 Nov, Other chronic pain G89.29 [facility] [address] [id number] [place] [address] 57627- 2691 Oct, Other chronic pain G89.29 [facility] [address] [place] [id number] [place] [address] 45818- 7120 Oct, Back pain M54.9 [facility] [address] [place] [id number] [place] [address] 71572- 7124 Sep, Back pain M54.9 [facility] [address] 31811- 4374 Aug, [facility] [address] 37820- 6290 Aug, Back pain M54.9 [facility] [address] 34740- 3602 July, Back pain M54.9 [facility] [address] 90359- 1115 Jun, Weight loss R63.4 and Postural hypotension I95.1 [place] [address] 03880- 7813 Jun, Back pain M54.9 [facility] [address] 19936- 4919 May, Back pain M54.9 [place] [address] 77549- 8643 Apr, Back pain M54.9 [place] [address] 40809- 7529 Apr, Pure hypercholesterolemia E78.00 [facility] [address] 11410- 7168 Apr, Hypertension I10 ; Back pain M54.9 ; Urge incontinence of urine N39.41 and Mooers L84 [place] [address] 46541- 6347 Mar, [place] [address] 28131- 9513 Mar, Other chronic pain G89.29 [place] [address] [place] [address]- 0189 Feb, [facility] [address] [place] [id number] [place] [address] 05503- 9220 Jan, [facility] [address] [place] [id number] [place] [address] 69063- 1622 28 Dec, 2015 [facility] [address] [place] [id number] [place] [address] 71092- 0033 28 Nov, 2015 [facility] [address] [place] [id number] [place] [address] 36069- 7363 05 Oct, 2015 [facility] [address] [place] [id number] [place] [address] 44731- 0961 Sep, Back pain M54.9 [facility] [address] [place] [id number] [place] [address] 17699- 0326 17 Aug, 2015 Back pain M54.9 and Hypertension I10 [facility] [address] [place] [id number] [place] [address] 82040 -3032 13 Aug, 2015 Low back pain M54.5 and Other chronic pain G89.29 [facility] [address] [place] [id number] [place] [address] 83174- 6095 10 Aug, 2015 Back pain M54.9 [facility] [address] [place] [id number] [place] [address] 67120- 0387 July, Back pain M54.9 [facility] [id number] [place] [address] 01506- 6982 Jun, Back pain M54.9 [facility] [id number] [place] [address] 92882- 2305 09 May, 2015 Back pain M54.9 [facility] [address] [place] [id number] [place] [address] 93209- 5034 04 Apr, 2015 Back pain M54.9 [facility] [id number] [place] [address] 45818- 3117 Mar, Back pain M54.9 [place] [address] [place] [id number] [place] [address] 68680- 4256 Feb, Prostatitis N41.9 ; Arthritis M19.90 and Hypertension I10 [place] [address] [place] [id number] [place] [address] 63948- 6284 Feb, [place] [address] [place] [id number] [place] [address] 64131- 4247 Jan, [place] [address] [place] [id number] [place] [address] 72075- 0722 Dec, Encounter for immunization Z23 [place] [address] 51083- 6306 Dec, [place] [address] 67389- 0333 Dec, Eye pain H57.10 [place] [address] 24277- 1150 Dec, Contusion of left leg S80.12XA and Right shoulder injury S49.91XA [place] [address] 29118- 5982 Dec, Cellulitis L03.90 ; Back pain M54.9 ; Urinary incontinence R32 and Need for mcpqltgeox-slfcpqb-bambdnbek (Tdap) vaccine Z23 [place] [address] [id number] [place] [address] 12814- 4018 Nov, Need for prophylactic vaccination with tetanus-diphtheria ( TD) V06.5 [place] [address] [place] [id number] [place] [address] 79956- 9492 Nov, [place] [address] 44802- 5909 Oct, [place] [address] [place] [id number] [place] [address] 71473- 0402 Sep, [place] [address] 43834- 8035 Sep, [facility] [place] [facility] [address] [id number] [place] [address]- 2080 Aug, [facility] [place] [facility] [address] [id number] [place] [address]- 8789 July, [facility] [place] [facility] [address] [facility] [id number] [place] [address]- 9676 July, [facility] [place] [facility] [address] [id number] [place] [address]- 4758 Jun, [facility] [place] [facility] [address] [id number] [place] [address]- 1996 Jun, [facility] [place] [facility] [address] [id number] [place] [address]- 2212 May, [facility] [place] [facility] [address] [id number] [place] [address]- 5945 May, [facility] [place] [facility] [address] [id number] [place] [address]- 3254 Apr, [facility] [place] [facility] [address] [id number] [place] [address]- 0968 Apr, [facility] [place] [facility] [address] [facility] [id number] [place] [address]- 1483 Mar, [facility] [place] [facility] [address] [id number] [place] [address]- 9648 Mar, [facility] [place] [facility] [address] [id number] [place] [address]- 0405 Mar, [facility] [place] [facility] [address] [id number] [place] [address]- 3122 Mar, [facility] [place] [facility] [address] [id number] [place] [address]- 8528 Mar, [facility] [place] [facility] [address] [facility] [id number] [place] [address]- 6633 Mar, [facility] [place] [facility] [address] [id number] [place] [address]- 2698 Mar, [facility] [place] [facility] [address] [id number] [place] [address]- 5370 Mar, [facility] [place] [facility] [address] [id number] [place] [address]- 9512 Mar, [facility] [place] [facility] [address] [id number] [place] [address]- 8759 Mar, [facility] [place] [facility] [address] [id number] [place] [address]- 1134 Mar, [facility] [place] [facility] [address] [id number] [place] [address]- 0231 Mar, [facility] [place] [facility] [address] [id number] [place] [address]- 1380 Mar, [facility] [place] [facility] [address] [id number] [place] [address]- 7667 Mar, [facility] [place] [facility] [address] [id number] [place] [address]- 6607 Feb, [facility] [place] [facility] [address] [id number] [place] [address]- 6961 Feb, [facility] [place] [facility] [address] [id number] [place] [address]- 7133 Feb, [facility] [place] [facility] [address] [id number] [place] [address]- 0987 Feb, [facility] [place] [facility] [address] [id number] [place] [address]- 4344 Feb, [facility] [place] [facility] [address] [id number] [place] [address]- 1544 Feb, [facility] [place] [facility] [address] [id number] [place] [address]- 1362 Jan, [facility] [place] [facility] [address] [id number] [place] [address]- 3365 Jan, [facility] [place] [facility] [address] [id number] [place] [address]- 8009 Dec, [facility] [place] [facility] [address] [id number] [place] [address]- 0680 Dec, [facility] [place] [facility] [address] [id number] [place] [address]- 3397 Dec, [facility] [place] [facility] [address] [id number] [place] [address]- 5308 Dec, [facility] [place] [facility] [address] [id number] [place] [address]- 9440 Dec, [facility] [place] [facility] [address] [id number] [place] [address]- 6340 Dec, [facility] [place] [facility] [address] [id number] [place] [address]- 2454 Nov, [facility] [place] [facility] [address] [id number] [place] [address]- 0270 Nov, [facility] [place] [facility] [address] [id number] [place] [address]- 7073 Oct, [facility] [place] [facility] [address] [id number] [place] [address]- 9111 Oct, [facility] [place] [facility] [address] [id number] [place] [address]- 5462 Sep, [facility] [place] [facility] [address] [id number] [address]- 0648 Sep, [facility] [place] [facility] [address] [id number] [place] [address]- 8490 Sep, [facility] [place] [facility] [address] [id number] [place] [address]- 7134 Sep, [facility] [place] [facility] [address] [id number] [place] [address]- 5259 July, [facility] [place] [facility] [address] [id number] [place] [address]- 3536 July, [facility] [address] [id number] [place] [address]- 3201 July, [facility] [address] [id number] [place] [address]- 3766 July, [facility] [address] [id number] [place] [address]- 5684 Feb, [facility] [address] [id number] [place] [address]- 5818 Feb, [facility] [address] [id number] [place] [address]- 8589 Jan, [facility] [address] [id number] [place] [address]- 9453 Jan, [facility] [address] [id number] [place] [address]- 1106 Jan, [facility] [address] [id number] [place] [address]- 3611 Jan, [facility] [address] [id number] [place] [address]- 2785 Nov, [facility] [address] [id number] [place] [address]- 0765 Aug, [facility] [address] [id number] [place] [address]- 6186 July, [facility] [address] [id number] [place] [address]- 3786 Jun, [facility] [place] [facility] [address] [id number] [place] [address]- 0466 Apr, [facility] [address] [id number] [place] [address]- 2546 Mar, [facility] [address] [id number] [place] [address]- 2356 Mar, [facility] [place] [facility] [address] [id number] [place] [address]- 9422 Jan, [facility] [place] [facility] [address] [id number] [place] [address]- 2056 Jan, [facility] [place] [facility] [address] [id number] [place] [address]- 4842 Jan, [facility] [place] [facility] [address] [id number] [place] [address]- 1287 Jan, [facility] [place] [facility] [address] [id number] [place] [address]- 8607 Dec, [facility] [place] [facility] [address] [id number] [place] [address]- 3416 Dec, [facility] [place] [facility] [address] [facility] [id number] [place] [address]- 8203 Dec, [facility] [place] [facility] [address] [id number], [place] [address]- 5508 Dec, [facility] [place] [facility] [address] [id number] [place] [address]- 8183 Nov, [facility] [place] [facility] [address] [facility] [id number], [place] [address]- 8080 Oct, [facility] [place] [facility] [address] [facility] [id number], [place] [address]- 0476 July, [facility] [place] [facility] [address] [id number], [place] [address]- 8152 Mar, [facility] [place] [facility] [address] [id number], [place] [address]- 1612 Jan, [facility] [place] [facility] [address] [id number], [place] [address]- 7486 Jan, [facility] [place] [facility] [address] [facility] [id number], [place] [address]- 8804 Dec, [facility] [place] [facility] [address] [id number], [place] [address]- 2576 17 Dec, 2010 [facility] [address] [facility] [id number], [place] [address]- 1256 17 Dec, 2010 [facility] [address] [facility] [id number], [place] [address]- 1236 14 Nov, 2010 [facility] [address], [place] [address]- 3016 July, [facility] [id number] [address]- 2916 14 Jun, 2010 [facility] [address] [facility] [id number], [place] [address]- 7946 May, [facility] [address] [id number] [address]- 0906 14 Apr, 2010 [facility] [address], [place] [address]- 0776 Apr, [facility] [address], [place] [address]- 6206 Mar, [facility] [address], [place] [address]- 4696 Jan, [facility] [address] [id number], [place] [address]- 6936 Dec, [facility] [address] [id number], [place] [address]- 9016 Jun, [facility] [address] [id number], [place] [address]- 7189 Jun, IMMUNIZATIONS No Known Immunizations SOCIAL HISTORY Never Assessed REASON FOR VISIT PLAN OF CARE VITAL SIGNS MEDICATIONS Unknown Medications RESULTS No Results PROCEDURES No Known procedures INSTRUCTIONS MEDICATIONS ADMINISTERED No Known Medications MEDICAL (GENERAL) HISTORY Type Description Date Medical History prostatism Medical History chronic pain Medical History hypertension Medical History heart failure Surgical History No Surgical history information Hospitalization History Cardiomyopathy-[facility] 01/12/18 Hospitalization History heart failure 01/07
--- OUTSIDE RECORDS SUMMARY | 2018-01-29 17:28 | XMS REPORT ---
Author Author RONAL CAMARGO Organization [facility] Address [address] [place] [address] Care Team Providers Care Communications Systems Engineer Name Role Phone RONAL CAMARGO Unavailable PROBLEMS Type Condition ICD9-CM Code JRF24-HB Code Onset Dates Condition Status SNOMED Code Problem Hypertension I10 Active 08471108 Problem Pure hypercholesterolemia E78.00 Active 246132259 Problem Arthritis M19.90 Active 5734092 Problem Back pain M54.9 Active 377304053 Problem Chronic kidney disease, unspecified CKD stage N18.9 Active 623954591 Problem Acute systolic congestive heart failure I50.21 Active 101488800 Problem Prostatism N40.0 Active 69000877 Problem Other chronic pain G89.29 Active 08932254 Problem Right inguinal hernia K40.90 Active 733369509 Problem Functional diarrhea K59.1 Active 90120090 ALLERGIES No Information ENCOUNTERS Encounter Location Date Diagnosis [facility] [address] [address] Jan, Back pain M54.9 [facility] [id number] [place] [address] 47453- 3487 Jan, Chronic kidney disease, unspecified CKD stage N18.9 [facility] [id number] [place] [address] 08806- 5779 Jan, Chronic kidney disease, unspecified CKD stage N18.9 [facility] [id number] [place] [address] 58704- 4417 Jan, Acute systolic congestive heart failure I50.21 ; Hypertension I10 and Back pain M54.9 [facility] [id number] [place] [address] 47652- 7249 Dec, [facility] [address] [place] [address]- 5175 Dec, [facility] [id number] [place] [address] 58819- 2132 Dec, [facility] [id number] [place] [address] 69855- 3000 Dec, [facility] [id number] [place] [address] 56213- 5750 Dec, Right inguinal hernia K40.90 and Edema, unspecified type R60.9 [facility] [id number] [place] [address] 71497- 2603 Dec, Back pain M54.9 [facility] [id number] [place] [address] 48591- 7436 Nov, Back pain M54.9 [facility] [id number] [place] [address] 87511- 0353 Oct, Back pain M54.9 [facility] [id number] [place] [address] 60218- 6500 Oct, [facility] [id number] [place] [address] 78878- 6854 Sep, Back pain M54.9 [facility] [id number] [place] [address] 80226- 0107 Aug, Back pain M54.9 ; Prostatism N40.0 ; Functional diarrhea K59.1 and Right inguinal hernia K40.90 [facility] [address] [place] [address] 10492- 5565 July, Other chronic pain G89.29 [facility] [id number] [place] [address] 88903- 1819 Jun, Other chronic pain G89.29 [facility] [id number] [place] [address] 98286- 0224 May, Other chronic pain G89.29 [facility] [id number] [address] 3217 15 Apr, 2017 Other chronic pain G89.29 [facility] [id number] [place] [address] 24274- 2307 Mar, Other chronic pain G89.29 [facility] [id number] [place] [address] 55378- 8444 Feb, Other chronic pain G89.29 [facility] [id number] [place] [address] 27582 -1880 Feb, Acute upper respiratory infection, unspecified J06.9 and Other viral agents as the cause of diseases classified elsewhere B97.89 [facility] [id number] [place] [address] 24252- 2634 Jan, [facility] [id number] [place] [address] 07957- 2118 Jan, Back pain M54.9 and Prostatism N40.0 [facility] [id number] [place] [address] 39209- 4785 Jan, Other chronic pain G89.29 [facility] [id number] [place] [address] 49221- 3383 Dec, [facility] [id number] [place] [address] 59995- 4332 Dec, Other chronic pain G89.29 [facility] [id number] [place] [address] 18316- 7090 Nov, Other chronic pain G89.29 [facility] [id number] [place] [address] 49645- 5722 Nov, Encounter for immunization Z23 [facility] [id number] [place] [address] 04512- 8002 Nov, Other chronic pain G89.29 [facility] [id number] [place] [address] 06410- 0034 Oct, Other chronic pain G89.29 [facility] [id number] [place] [address] 10782- 6721 Oct, Back pain M54.9 [facility] [id number] [place] [address] 26254- 4672 Sep, Back pain M54.9 [facility] [address] 25210- 2092 Aug, [facility] [address] 40377- 2823 Aug, Back pain M54.9 [facility] [address] 76404- 4866 July, Back pain M54.9 [facility] [address] 90641- 0809 Jun, Weight loss R63.4 and Postural hypotension I95.1 [facility] [address] 47305- 7989 Jun, Back pain M54.9 [facility] [address] 76732- 1889 May, Back pain M54.9 [facility] [address] 41311- 8562 Apr, Back pain M54.9 [facility] [id number] [place] [address] 05489- 2199 Apr, Pure hypercholesterolemia E78.00 [facility] [address] 93232- 9225 06 Apr, 2016 Hypertension I10 ; Back pain M54.9 ; Urge incontinence of urine N39.41 and Dexter L84 [facility] [id number] [place] [address] 87773- 7311 Mar, [facility] [address] [place] [address]- 0502 Mar, Other chronic pain G89.29 [facility] [id number] [place] [address] 75823- 3523 Feb, [facility] [id number] [place] [address] 90214- 6688 Jan, [facility] [id number] [place] [address] 37268- 7131 Dec, [facility] [id number] [place] [address] 25225- 5489 Nov, [facility] [id number] [place] [address] 16288- 2125 Oct, [facility] [id number] [place] [address] 03473- 2426 Sep, Back pain M54.9 [facility] [id number] [place] [address] 96581- 5758 17 Aug, 2015 Back pain M54.9 and Hypertension I10 [facility] [address] [place] [address] 39571 -7714 13 Aug, 2015 Low back pain M54.5 and Other chronic pain G89.29 [facility] [address] [place] [address] 08684- 7307 10 Aug, 2015 Back pain M54.9 [facility] [id number] [place] [address] 50691- 9477 July, Back pain M54.9 [facility] [address] [place] [address] 95412- 2896 06 Jun, 2015 Back pain M54.9 [facility] [id number] [place] [address] 23049- 8703 May, Back pain M54.9 [facility] [address] [place] [address] 94287- 8669 Apr, Back pain M54.9 [place] [facility] [id number] [place] [address] 94482- 5748 Mar, Back pain M54.9 [facility] [facility] [id number] [place] [address] 21032- 4003 Feb, Prostatitis N41.9 ; Arthritis M19.90 and Hypertension I10 [place] [address] 33468- 2312 Feb, [place] [id number] [place] [address] 26101- 5200 Jan, [place] [address] 03225- 7831 Dec, Encounter for immunization Z23 [place] [id number] [place] [address] 87596- 2062 Dec, [place] [address] 34380- 2923 Dec, Eye pain H57.10 [place] [address] 06065- 1000 Dec, Contusion of left leg S80.12XA and Right shoulder injury S49.91XA [facility] [id number] [place] [address] 02295- 4784 Dec, Cellulitis L03.90 ; Back pain M54.9 ; Urinary incontinence R32 and Need for ivqjjdhvoh-fqwnofy-usgptvxgr (Tdap) vaccine Z23 [place] [facility] [id number] [place] [address] 92383- 9514 Nov, Need for prophylactic vaccination with tetanus-diphtheria ( TD) V06.5 [place] [id number] [place] [address] 11624- 2116 Nov, [place] [id number] [place] [address] 89493- 7812 Oct, [place] [id number] [address]- 8616 Sep, [facility] [address] [id number] [place] [address]- 5707 Sep, [facility] [place] [facility] [address] [id number] [place] [address]- 5173 Aug, [facility] [place] [facility] [address] [id number] [place] [address]- 4490 July, [facility] [place] [facility] [address] [id number] [place] [address]- 4269 July, [facility] [place] [facility] [address] [id number] [place] [address]- 1120 Jun, [facility] [place] [facility] [address] [id number] [place] [address]- 1574 Jun, [facility] [place] [facility] [address] [id number] [place] [address]- 7393 May, [facility] [place] [facility] [address] [id number] [place] [address]- 7584 May, [facility] [place] [facility] [address] [id number] [place] [address]- 7250 Apr, [facility] [place] [facility] [address] [id number] [place] [address]- 9216 Apr, [facility] [place] [facility] [address] [id number] [place] [address]- 0932 Mar, [facility] [place] [facility] [address] [id number] [place] [address]- 4739 Mar, [facility] [place] [facility] [address] [id number] [place] [address]- 0787 Mar, [facility] [place] [facility] [address] [id number] [place] [address]- 8039 Mar, [facility] [place] [facility] [address] [id number] [place] 1409 Mar, [facility] [place] [facility] [address] [id number] [place] [address]- 0527 Mar, [facility] [place] [facility] [address] [id number] [place] [address]- 5054 Mar, [facility] [place] [facility] [address] [id number] [place] [address]- 0200 Mar, [facility] [place] [facility] [address] [id number] [place] [address]- 9337 Mar, [facility] [place] [facility] [address] [id number] [place] [address]- 7065 Mar, [facility] [place] [facility] [address] [id number] [place] [address]- 0017 Mar, [facility] [place] [facility] [address] [id number] [place] [address]- 2002 Mar, [facility] [place] [facility] [address] [id number] [place] [address]- 8862 Mar, [facility] [place] [facility] [address] [id number] [place] [address]- 9615 Mar, [facility] [place] [facility] [address] [id number] [address]- 0113 Feb, [facility] [place] [facility] [address] [id number] [address]- 0756 Feb, [facility] [place] [facility] [address] [id number] [address]- 5319 Feb, [facility] [place] [facility] [address] [id number] [place] [address]- 7796 Feb, [facility] [place] [facility] [address] [id number] [place] [address]- 9609 Feb, [facility] [place] [facility] [address] [id number] [place] 0263 Feb, [facility] [place] [facility] [address] [id number] [address]- 9733 Jan, [facility] [place] [facility] [address] [id number] [place] [address]- 9492 Jan, [facility] [place] [facility] [address] [id number] [place] [address]- 8683 Dec, [facility] [place] [facility] [address] [id number] [place] [address]- 9776 Dec, [facility] [place] [facility] [address] [id number] [place] [address]- 7262 Dec, [facility] [place] [facility] [address] [id number] [place] [address]- 5983 Dec, [facility] [place] [facility] [address] [id number] [place] [address]- 4325 Dec, [facility] [place] [facility] [address] [facility] [id number] [place] [address]- 1203 Dec, [facility] [place] [facility] [address] [id number] [place] [address]- 0499 Nov, [facility] [place] [facility] [address] [id number] [place] [address]- 1064 Nov, [facility] [place] [facility] [address] [facility] [id number] [place] [address]- 1653 Oct, [facility] [place] [facility] [address] [id number] [place] [address]- 6341 Oct, [facility] [place] [facility] [address] [id number] [place] [address]- 9168 Sep, [facility] [place] [facility] [address] [id number] [place] [address]- 9697 Sep, [facility] [place] [facility] [address] [facility] [id number] [place] [address]- 0901 Sep, [facility] [place] [facility] [address] [facility] [id number] [place] [address]- 9826 Sep, [facility] [place] [facility] [address] [id number] [place] [address]- 7412 July, [facility] [address] [id number] [place] [address]- 2268 July, [facility] [place] [facility] [address] [id number] [place] [address]- 9356 July, [facility] [place] [facility] [address] [id number] [place] [address]- 5281 July, [facility] [place] [facility] [address] [id number] [place] [address]- 8787 Feb, [facility] [place] [facility] [address] [id number] [place] [address]- 9840 Feb, [facility] [place] [facility] [address] [id number] [place] [address]- 9926 Jan, [facility] [place] [facility] [address] [id number] [place] [address]- 0816 Jan, [facility] [place] [facility] [address] [id number] [place] [address]- 8059 Jan, [facility] [place] [facility] [address] [id number] [place] [address]- 3185 Jan, [facility] [place] [facility] [address] [id number] [place] [address]- 5016 Nov, [facility] [place] [facility] [address] [id number] [place] [address]- 4778 Aug, [facility] [place] [facility] [address] [id number] [place] [address]- 8548 July, [facility] [place] [facility] [address] [id number] [place] [address]- 8476 Jun, [facility] [place] [facility] [address] [id number] [place] [address]- 2546 Apr, [facility] [place] [facility] [address] [id number] [place] [address]- 1479 Mar, [facility] [place] [facility] [address] [id number] [place] [address]- 7696 Mar, [facility] [place] [facility] [address] [id number] [place] [address]- 7806 Jan, [facility] [place] [facility] [address] [facility] [id number] [place] [address]- 2546 Jan, [facility] [place] [facility] [address] [id number] [place] [address]- 2546 Jan, [facility] [place] [facility] [address] [id number] [place] [address] 2541 Jan, [facility] [place] [facility] [address] [id number] [place] [address]- 1336 Dec, [facility] [place] [facility] [address] [id number] [place] [address]- 9646 Dec, [facility] [place] [facility] [address] [id number] [place] [address]- 9176 Dec, [facility] [place] [facility] [address] [id number] [place] [address]- 6298 Dec, [facility] [place] [facility] [address] [id number] [place] [address]- 4046 Nov, [facility] [place] [facility] [address] [id number] [place] [address]- 2546 Oct, [facility] [place] [facility] [address] [id number] [place] [address]- 2546 July, [facility] [place] [facility] [address] [id number] [place] [address]- 2546 Mar, [facility] [place] [facility] [address] [id number] [place] [address]- 2546 Jan, [facility] [place] [facility] [address] [id number] [place] [address]- 2546 Jan, [facility] [place] [facility] [address] [address]- 5366 Dec, [facility] [address] [facility] [id number] [place] [address]- 7706 Dec, [facility] [address] [address]- 5886 Dec, [facility] [address] [address]- 5567 Nov, [facility] [address] [address]- 3316 July, [facility] [address] [place] [address] 13623- 0033 Jun, [facility] [address] [address]- 0526 May, [facility] [address] [place] [address] 27761- 1758 14 Apr, 2010 [facility] [address] [address]- 7079 Apr, [facility] [address] [address]- 5018 Mar, [facility] [address] [address]- 5156 Jan, [facility] [address] [address]- 8367 Dec, [facility] [id number] [address]- 4849 Jun, [facility] [address] [address]- 1223 Jun, IMMUNIZATIONS No Known Immunizations SOCIAL HISTORY Never Assessed REASON FOR VISIT Controlled Med Refill 01/28 PLAN OF CARE VITAL SIGNS MEDICATIONS Medication [...]
--- OUTSIDE RECORDS SUMMARY | 2018-01-29 17:29 | XMS REPORT ---
Author Author RONAL CAMARGO Organization [facility], [place] Address [address] [place] [address] Care Team Providers Care Ict Business Development Manager Name Role Phone RONAL CAMARGO Unavailable PROBLEMS Type Condition ICD9-CM Code PVW01-[place] Code Onset Dates Condition Status SNOMED Code Problem Hypertension I10 Active 55706699 Problem Urge incontinence of urine N39.41 Active 94890282 Problem Arthritis M19.90 Active 6715406 Problem Back pain M54.9 Active 506107398 Problem Functional diarrhea K59.1 Active 66406065 Problem Right inguinal hernia K40.90 Active 181644474 Problem Pure hypercholesterolemia E78.00 Active 135716404 Problem Dow L84 Active 899098741 Problem Prostatism N40.0 Active 80475096 Problem Other chronic pain G89.29 Active [id number] ALLERGIES No Information ENCOUNTERS Encounter Location Date Diagnosis [facility], [place] [id number] [place] [address] 94473- 5951 Jan, [facility] [place] [id number] [place] [address] 83818- 2169 Dec, [facility] [place] [id number] [place] [address] 98345- 0637 Dec, [facility] [place] [id number] [place] [address] 17882- 3073 Dec, [facility] [place] [id number] [place] [address] 81484- 4401 Dec, [facility] [place] [id number] [place] [address] 94862- 7915 Dec, Right inguinal hernia K40.90 and Edema, unspecified type R60.9 [facility], [place] [id number] [place] [address] 47364- 5812 Dec, Back pain M54.9 [facility] [place] [id number] [place] [address] 70970- 4040 Nov, Back pain M54.9 [facility], [place] [id number] [place] [address] 836244- 0915 Oct, Back pain M54.9 [facility] [place] [id number] [place] [address] 04456- 5029 Oct, [facility] [place] [id number] [place] [address] 57333- 8462 Sep, Back pain M54.9 [facility] [place] [address] 08960- 8422 Aug, Back pain M54.9 ; Prostatism N40.0 ; Functional diarrhea K59.1 and Right inguinal hernia K40.90 [facility], [place] [id number] [place] [address] 53284- 1484 July, Other chronic pain G89.29 [facility] [place] [id number] [place] [address] 01108- 3857 Jun, Other chronic pain G89.29 [facility] [place] [id number] [place] [address] 58648- 1607 May, Other chronic pain G89.29 [facility] [place] [id number] [place] [address] 66638- 7034 Apr, Other chronic pain G89.29 [facility] [place] [id number] [place] [address] 14217- 7267 Mar, Other chronic pain G89.29 [facility] [place] [id number] [place] [address] 77758- 0087 Feb, Other chronic pain G89.29 [facility] [address] [place] [address] 08887 -5073 Feb, Acute upper respiratory infection, unspecified J06.9 and Other viral agents as the cause of diseases classified elsewhere B97.89 [facility], [place] [id number] [place] [address] 63098- 4100 Jan, [facility] [place] [id number] [place] [address] 86478- 6356 Jan, Back pain M54.9 and Prostatism N40.0 [facility] [place] [id number] [place] [address] 68298- 3638 Jan, Other chronic pain G89.29 [facility] [place] [id number] [place] [address] 75705- 3103 Dec, [facility] [place] [id number] [place] [address] 63668- 3265 Dec, Other chronic pain G89.29 [facility] [place] [id number] [place] [address] 19709- 4047 Nov, Other chronic pain G89.29 [facility] [place] [id number] [place] [address] 69990- 6306 Nov, Encounter for immunization Z23 [facility] [place] [address] 27332- 3967 Nov, Other chronic pain G89.29 [facility] [place] [id number] [place] [address] 80515- 8191 Oct, Other chronic pain G89.29 [facility] [place] [id number] [place] [address] 63305- 5614 Oct, Back pain M54.9 [facility] [place] [id number] [place] [address] 60084- 7325 Sep, Back pain M54.9 [facility] [place] [id number] [place] [address] 81056- 6954 Aug, [facility] [place] [id number] [place] [address] 67123- 8023 Aug, Back pain M54.9 [facility] [place] [id number] [place] [address] 70882- 5373 July, Back pain M54.9 [facility] [place] [address] 87697- 0617 24 Jun, 2016 Weight loss R63.4 and Postural hypotension I95.1 [place] [address] 62308- 1704 Jun, Back pain M54.9 [facility] [place] [address] 43983- 3033 May, Back pain M54.9 [place] [address] 18971- 8777 Apr, Back pain M54.9 [place] [address] 26307- 4277 Apr, Pure hypercholesterolemia E78.00 [place] [address] 37735- 1049 Apr, Hypertension I10 ; Back pain M54.9 ; Urge incontinence of urine N39.41 and Dow L84 [place] [id number] [place] [address] 65262- 5749 Mar, [place] [address] 46111- 3390 Mar, Other chronic pain G89.29 [place] [address] 63876- 9672 Feb, [place] [address] 03153- 9727 Jan, [place] [address] 74160- 3916 28 Dec, 2015 [facility] [place] [id number] [place] [address] 45375- 7377 Nov, [place] [id number] [place] [address] 57843- 9026 05 Oct, 2015 [facility] [place] [id number] [place] [address] 39295- 0049 Sep, Back pain M54.9 [facility] [place] [id number] [place] [address] 50617- 4242 17 Aug, 2015 Back pain M54.9 and Hypertension I10 [facility] [id number] [place] [address] 47712 -4781 13 Aug, 2015 Low back pain M54.5 and Other chronic pain G89.29 [facility] [place] [address] 66119- 9607 Aug, Back pain M54.9 [facility] [place] [id number] [place] [address] 84250- 6835 July, Back pain M54.9 [facility] [place] [id number] [place] [address] 29536- 0667 Jun, Back pain M54.9 [facility] [place] [id number] [place] [address] 64311- 3900 May, Back pain M54.9 [facility] [place] [id number] [place] [address] 72491- 5511 04 Apr, 2015 Back pain M54.9 [facility] [place] [id number] [place] [address] 73854- 0258 Mar, Back pain M54.9 [facility] [place] [id number] [place] [address] 97596- 5420 Feb, Prostatitis N41.9 ; Arthritis M19.90 and Hypertension I10 [facility] [place] [id number] [place] [address] 75775- 3487 15 Feb, 2015 [facility] [place] [id number] [place] [address] 90989- 1879 Jan, [facility] [place] [address] [address]- 2873 Dec, Encounter for immunization Z23 [facility] [place] [id number] [place] [address] 01328- 8823 Dec, [facility] [place] [id number] [place] [address] 62490- 1571 Dec, Eye pain H57.10 [place] [id number] [place] [address] 68268- 0003 Dec, Contusion of left leg S80.12XA and Right shoulder injury S49.91XA [place] [address] 31812- 8347 Dec, Cellulitis L03.90 ; Back pain M54.9 ; Urinary incontinence R32 and Need for mrzecnclol-srcjaxx-akhzvpjvl (Tdap) vaccine Z23 [place] [id number] [place] [address] 41875- 6805 Nov, Need for prophylactic vaccination with tetanus-diphtheria ( TD) V06.5 [place] [id number] [place] [address] 50480- 9585 Nov, [place] [id number] [place] [address] 70999- 1184 Oct, [place] [id number] [place] [address] 64147- 1697 Sep, [facility] [place] [id number] [place] [address] 48478- 4875 Sep, [facility] [place] [address] [place] [address] 79062- 0225 Aug, [facility] [place] [id number] [place] [address] 898942- 0403 July, [facility] [place] [address] [address]- 4433 July, [facility] [place] [id number] [place] [address]- 3421 14 Jun, 2014 [facility] [place] [facility] [address] [id number] [place] [address]- 4286 13 Jun, 2014 [facility] [place] [facility] [address] [id number] [place] [address]- 8526 11 May, 2014 [facility] [place] [facility] [address] [id number] [place] [address]- 3936 May, [facility] [place] [facility] [address] [id number] [place] [address]- 8494 Apr, [facility] [place] [facility] [address] [id number] [place] [address]- 9176 Apr, [facility] [place] [facility] [address] [id number] [place] [address]- 1255 Mar, [facility] [place] [facility] [address] [id number] [place] [address]- 7618 Mar, [facility] [place] [facility] [address] [id number] [place] [address]- 0078 Mar, [facility] [place] [facility] [address] [id number] [place] [address]- 3550 Mar, [facility] [place] [facility] [address] [id number] [place] [address]- 5993 Mar, [facility] [place] [facility] [address] [id number] [place] [address]- 0701 Mar, [facility] [place] [facility] [address] [id number] [place] [address]- 2544 Mar, [facility] [place] [facility] [address] [id number] [place] [address]- 7762 Mar, [facility] [place] [facility] [address] [id number] [place] [address]- 8477 Mar, [facility] [place] [facility] [address] [id number] [place] [address]- 0456 Mar, [facility] [place] [facility] [address] [id number] [place] [address]- 5500 Mar, [facility] [place] [facility] [address] [id number] [place] [address]- 5253 Mar, [facility] [place] [facility] [address] [id number] [place] 0933 Mar, [facility] [place] [facility] [address] [id number] [place] [address]- 9332 Mar, [facility] [place] [facility] [address] [id number] [place] [address]- 7699 Feb, [facility] [place] [facility] [address] [id number] [place] [address]- 9077 Feb, [facility] [place] [facility] [address] [id number] [place] [address]- 5740 Feb, [facility] [place] [facility] [address] [id number] [place] [address]- 4457 Feb, [facility] [place] [facility] [address] [id number] [place] [address]- 3217 Feb, [facility] [place] [facility] [address] [id number] [place] [address]- 5825 Feb, [facility] [place] [facility] [address] [id number] [place] [address]- 0741 Jan, [facility] [place] [facility] [address] [id number] [place] [address]- 8753 Jan, [facility] [place] [facility] [address] [id number] [place] [address]- 4972 Dec, [facility] [place] [facility] [address] [id number] [place] 6620 Dec, [facility] [place] [facility] [address] [id number] [place] 4225 Dec, [facility] [place] [facility] [address] [id number] [place] [address]- 2179 Dec, [facility] [place] [facility] [address] [id number] [place] [address]- 2794 Dec, [facility] [place] [facility] [address] [id number] [place] [address]- 7013 Dec, [facility] [place] [facility] [address] [id number] [place] [address]- 4582 Nov, [facility] [place] [facility] [address] [id number] [place] [address]- 3743 Nov, [facility] [place] [facility] [address] [id number] [place] [address]- 5368 Oct, [facility] [place] [facility] [address] [id number] [place] [address]- 2105 Oct, [facility] [place] [facility] [address] [id number] [place] [address]- 2794 Sep, [facility] [place] [facility] [address] [id number] [place] [address]- 1275 Sep, [facility] [place] [facility] [address] [id number] [place] [address]- 5676 Sep, [facility] [place] [facility] [address] [id number] [place] [address]- 8562 Sep, [facility] [place] [facility] [address] [id number] [place] [address]- 8183 July, [facility] [place] [facility] [address] [id number] [place] [address]- 5359 July, [facility] [place] [facility] [address] [id number] [place] [address]- 9969 July, [facility] [place] [facility] [address] [id number] [place] [address]- 8310 July, [facility] [place] [facility] [address] [id number] [place] [address]- 8491 Feb, [facility] [place] [facility] [address] [id number] [place] [address]- 0589 Feb, [facility] [place] [facility] [address] [id number] [place] [address]- 2994 Jan, [facility] [place] [facility] [address] [id number] [place] [address]- 2876 Jan, [facility] [place] [facility] [address] [id number] [place] [address]- 7099 Jan, [facility] [place] [facility] [address] [id number] [place] [address]- 3888 Jan, [facility] [place] [facility] [address] [id number] [place] [address]- 4265 Nov, [facility] [place] [facility] [address] [id number] [place] [address]- 8229 Aug, [facility] [place] [facility] [address] [id number] [place] [address]- 5877 July, [facility] [place] [facility] [address] [id number] [place] [address]- 8960 Jun, [facility] [place] [facility] [address] [id number] [place] [address]- 5305 Apr, [facility] [place] [facility] [address] [id number] [place] [address]- 8666 Mar, [facility] [place] [facility] [address] [id number] [place] [address]- 6513 Mar, [facility] [place] [facility] [address] [id number] [place] [address]- 4867 Jan, [facility] [place] [facility] [address] [id number] [place] [address]- 6308 Jan, [facility] [place] [facility] [address] [id number] [place] [address]- 4382 Jan, [facility] [place] [facility] [address] [id number] [place] [address]- 3178 Jan, [facility] [place] [facility] [address] [id number] [place] [address]- 0632 Dec, [facility] [place] [facility] [address] [id number] [place] [address]- 3486 Dec, [facility] [place] [facility] [address] [id number] [place] [address] 2546 Dec, [facility] [place] [facility] [address] [id number] [place] [address] 2541 Dec, [facility] [place] [facility] [address] [id number] [place] [address]- 2701 Nov, [facility] [place] [facility] [address] [id number] [place] [address]- 6766 Oct, [facility] [place] [facility] [address] [id number] [place] [address]- 6474 July, [facility] [place] [facility] [address] [id number] [place] [address]- 2482 Mar, [facility] [place] [facility] [address] [id number] [address]- 8999 Jan, [facility] [place] [facility] [address] [id number] [address]- 2155 Jan, [facility] [place] [facility] [address] [id number], [place] [address]- 8224 Dec, [facility] [place] [facility] [address] [id number], [place] [address] 2548 Dec, [facility] [place] [facility] [address] [id number] [place] [address]- 4793 Dec, [facility] [place] [facility] [address] [id number], [place] [address]- 5023 Nov, [facility] [place] [facility] [address] [id number] [place] [address] 2549 July, [facility] [place] [facility] [id number] [address]- 2416 14 Jun, 2010 [facility] [place] [address] [address]- 5692 14 May, 2010 [facility] [place] [address] [address]- 4695 14 Apr, 2010 [facility] [place] [address] [address]- 3335 10 Apr, 2010 [facility] [place] [address] [address]- 5028 14 Mar, 2010 [facility] [place] [address] [address]- 8877 Jan, [facility] [place] [address] [address]- 1958 Dec, [facility] [place] [address] [address]- 5932 17 Jun, 2009 [facility] [place] [id number] [address]- 8165 13 Jun, 2009 IMMUNIZATIONS No Known Immunizations SOCIAL HISTORY Never Assessed REASON FOR VISIT PLAN OF CARE VITAL SIGNS MEDICATIONS Unknown Medications RESULTS No Results PROCEDURES No Known procedures INSTRUCTIONS MEDICATIONS ADMINISTERED No Known Medications MEDICAL (GENERAL) HISTORY Type Description Date Medical History prostatism Medical History chronic pain Medical History hypertension Surgical History No Surgical history information Hospitalization History Cardiomyopathy-[facility] 01/12/18
--- OUTSIDE RECORDS SUMMARY | 2018-01-29 17:29 | XMS REPORT ---
Author Author RONAL CAMARGO Organization [facility] Address [address] [place] [address] Care Team Providers Care Clerk Travel Reservations Name Role Phone RONAL CAMARGO Unavailable PROBLEMS Type Condition ICD9-CM Code WTZ58-[id number] Code Onset Dates Condition Status SNOMED Code Problem Hypertension I10 Active 33543883 Problem Pure hypercholesterolemia E78.00 Active 428601305 Problem Arthritis M19.90 Active 7072474 Problem Back pain M54.9 Active 157794290 Problem Chronic kidney disease, unspecified CKD stage N18.9 Active 612269181 Problem Acute systolic congestive heart failure I50.21 Active 278525461 Problem Prostatism N40.0 Active 07305144 Problem Other chronic pain G89.29 Active 81351475 Problem Right inguinal hernia K40.90 Active 396543744 Problem Functional diarrhea K59.1 Active 12684008 ALLERGIES No Information ENCOUNTERS Encounter Location Date Diagnosis [place] [address] [address] Jan, Chronic kidney disease, unspecified CKD stage N18.9 [facility] [address] [address] [id number] [place] [address] 17552- 4697 Jan, Chronic kidney disease, unspecified CKD stage N18.9 [facility] [id number] [place] [address] 46332- 7520 Jan, Acute systolic congestive heart failure I50.21 ; Hypertension I10 and Back pain M54.9 [facility] [address] [address]- 116[address] Dec, [facility] [id number] [place] [address] 31719- 5082 Dec, [facility] [address] 89455- 3581 Dec, [facility] [id number] [place] [address] 22939- 7594 Dec, [facility] [id number] [place] [address] 69069- 0889 Dec, Right inguinal hernia K40.90 and Edema, unspecified type R60.9 [facility] [address] 22836- 4947 Dec, Back pain M54.9 [facility] [id number] [place] [address] 66248- 6074 Nov, Back pain M54.9 [facility] [id number] [place] [address] 33543- 5100 Oct, Back pain M54.9 [facility] [id number] [place] [address] 58804- 3778 Oct, [facility] [id number] [place] [address] 51011- 4653 Sep, Back pain M54.9 [facility] [id number] [place] [address] 48701- 0526 Aug, Back pain M54.9 ; Prostatism N40.0 ; Functional diarrhea K59.1 and Right inguinal hernia K40.90 [facility] [id number] [place] [address] 01165- 3167 July, Other chronic pain G89.29 [facility] [id number] [place] [address] 06401- 5469 Jun, Other chronic pain G89.29 [facility] [id number] [place] [address] 78817- 4140 May, Other chronic pain G89.29 [facility] [id number] [place] [address] 97673- 8942 Apr, Other chronic pain G89.29 [facility] [address] [address]- 3673 Mar, Other chronic pain G89.29 [facility] [id number] [place] [address] 82113- 7594 Feb, Other chronic pain G89.29 [facility] [address] [address] Feb, Acute upper respiratory infection, unspecified J06.9 and Other viral agents as the cause of diseases classified elsewhere B97.89 [facility] [id number] [place] [address] 80749- 0877 Jan, [facility] [id number] [place] [address] 59393- 7871 Jan, Back pain M54.9 and Prostatism N40.0 [facility] [id number] [place] [address] 49922- 4135 Jan, Other chronic pain G89.29 [facility] [id number] [place] [address] 64987- 6334 Dec, [facility] [id number] [place] [address] 20731- 1931 Dec, Other chronic pain G89.29 [facility] [id number] [place] [address] 14351- 5521 Nov, Other chronic pain G89.29 [facility] [id number] [place] [address] 79942- 1481 Nov, Encounter for immunization Z23 [facility] [id number] [place] [address] 65379- 1407 Nov, Other chronic pain G89.29 [facility] [id number] [place] [address] 96627- 5832 Oct, Other chronic pain G89.29 [facility] [id number] [place] [address] 62365- 7179 Oct, Back pain M54.9 [facility] [id number] [place] [address] 41550- 1008 Sep, Back pain M54.9 [facility] [address] 86431- 7159 Aug, [facility] [address] 39521- 9167 Aug, Back pain M54.9 [facility] [address] 45687- 0285 July, Back pain M54.9 [facility] [address] 37711- 6421 Jun, Weight loss R63.4 and Postural hypotension I95.1 [place] [address] 88402- 6374 Jun, Back pain M54.9 [facility] [address] 71012- 5816 May, Back pain M54.9 [place] [address] 28819- 9358 Apr, Back pain M54.9 [place] [address] 48883- 7261 Apr, Pure hypercholesterolemia E78.00 [facility] [address] 85100- 0036 Apr, Hypertension I10 ; Back pain M54.9 ; Urge incontinence of urine N39.41 and [place] L84 [place] [address] 44489- 7220 Mar, [place] [address] 93025- 0644 Mar, Other chronic pain G89.29 [place] [address] [place] [address]- 8227 Feb, [facility] [id number] [place] [address] 90444- 9914 Jan, [facility] [id number] [place] [address] 09847- 5121 28 Dec, 2015 [facility] [id number] [place] [address] 56472- 5138 28 Nov, 2015 [facility] [id number] [place] [address] 83964- 4336 05 Oct, 2015 [facility] [id number] [place] [address] 58284- 1906 Sep, Back pain M54.9 [facility] [id number] [place] [address] 04970- 3582 17 Aug, 2015 Back pain M54.9 and Hypertension I10 [facility] [id number] [place] [address] 91703 -0674 13 Aug, 2015 Low back pain M54.5 and Other chronic pain G89.29 [facility] [id number] [place] [address] 90445- 2177 10 Aug, 2015 Back pain M54.9 [facility] [id number] [place] [address] 99295- 4816 July, Back pain M54.9 [facility] [address] [place] [address] 03790- 7171 Jun, Back pain M54.9 [facility] [address] [place] [address] 34786- 5864 09 May, 2015 Back pain M54.9 [facility] [id number] [place] [address] 31169- 3651 04 Apr, 2015 Back pain M54.9 [facility] [address] [place] [address] 12914- 0441 Mar, Back pain M54.9 [place] [address] [id number] [place] [address] 45720- 7298 Feb, Prostatitis N41.9 ; Arthritis M19.90 and Hypertension I10 [place] [address] [place] [id number] [place] [address] 45563- 3575 Feb, [place] [address] [place] [id number] [place] [address] 61417- 0439 Jan, [place] [address] [id number] [place] [address] 78562- 9314 Dec, Encounter for immunization Z23 [place] [address] 60698- 5622 Dec, [place] [address] 54633- 9017 Dec, Eye pain H57.10 [place] [address] 87567- 3548 Dec, Contusion of left leg S80.12XA and Right shoulder injury S49.91XA [place] [address] 13748- 4170 Dec, Cellulitis L03.90 ; Back pain M54.9 ; Urinary incontinence R32 and Need for njvsphakfg-pprjkam-pvvmvvzyn (Tdap) vaccine Z23 [place] [address] [place] [id number] [place] [address] 69259- 9615 Nov, Need for prophylactic vaccination with tetanus-diphtheria ( TD) V06.5 [place] [address] [place] [id number] [place] [address] 20286- 5742 Nov, [place] [address] 99739- 1611 Oct, [place] [address] [place] [id number] [place] [address] 30305- 5953 Sep, [place] [address] 35426- 7264 Sep, [facility] [place] [facility] [address] [id number] [place] [address]- 1962 Aug, [facility] [place] [facility] [address] [id number] [place] [address]- 5163 July, [facility] [place] [facility] [address] [facility] [id number] [place] [address]- 8616 July, [facility] [place] [facility] [address] [id number] [place] [address]- 1765 Jun, [facility] [place] [facility] [address] [id number] [place] [address]- 4367 Jun, [facility] [place] [facility] [address] [id number] [place] [address]- 6833 May, [facility] [place] [facility] [address] [id number] [place] [address]- 0410 May, [facility] [place] [facility] [address] [id number] [place] [address]- 9179 Apr, [facility] [place] [facility] [address] [id number] [place] [address]- 5932 Apr, [facility] [place] [facility] [address] [facility] [id number] [place] [address]- 4258 Mar, [facility] [place] [facility] [address] [id number] [place] [address]- 9688 Mar, [facility] [place] [facility] [address] [id number] [place] [address]- 4866 Mar, [facility] [place] [facility] [address] [id number] [place] [address]- 5967 Mar, [facility] [place] [facility] [address] [id number] [place] [address]- 5063 Mar, [facility] [place] [facility] [address] [facility] [id number] [place] [address]- 0020 Mar, [facility] [place] [facility] [address] [id number] [place] [address]- 0399 Mar, [facility] [place] [facility] [address] [id number] [place] [address]- 4159 Mar, [facility] [place] [facility] [address] [id number] [place] [address]- 7983 Mar, [facility] [place] [facility] [address] [id number] [place] [address]- 3649 Mar, [facility] [place] [facility] [address] [id number] [place] [address]- 9749 Mar, [facility] [place] [facility] [address] [id number] [place] [address]- 1929 Mar, [facility] [place] [facility] [address] [id number] [place] [address]- 4806 Mar, [facility] [place] [facility] [address] [id number] [place] [address]- 3900 Mar, [facility] [place] [facility] [address] [id number] [place] [address]- 7750 Feb, [facility] [place] [facility] [address] [id number] [place] [address]- 0795 Feb, [facility] [place] [facility] [address] [id number] [place] [address]- 3372 Feb, [facility] [place] [facility] [address] [id number] [place] [address]- 9748 Feb, [facility] [place] [facility] [address] [id number] [place] [address]- 5794 Feb, [facility] [place] [facility] [address] [id number] [place] [address]- 9767 Feb, [facility] [place] [facility] [address] [id number] [place] [address]- 7463 Jan, [facility] [place] [facility] [address] [id number] [place] [address]- 1175 Jan, [facility] [place] [facility] [address] [id number] [place] [address]- 7725 Dec, [facility] [place] [facility] [address] [id number] [place] [address]- 6575 Dec, [facility] [place] [facility] [address] [id number] [place] [address]- 1934 Dec, [facility] [place] [facility] [address] [id number] [place] [address]- 2602 Dec, [facility] [place] [facility] [address] [id number] [place] [address]- 2454 Dec, [facility] [place] [facility] [address] [id number] [place] [address]- 9312 Dec, [facility] [place] [facility] [address] [id number] [place] [address]- 9993 Nov, [facility] [place] [facility] [address] [id number] [place] [address]- 3483 Nov, [facility] [place] [facility] [address] [id number] [place] [address]- 5542 Oct, [facility] [place] [facility] [address] [id number] [place] [address]- 9194 Oct, [facility] [place] [facility] [address] [id number] [place] [address]- 1609 Sep, [facility] [place] [facility] [address] [id number], [place] [address]- 0745 Sep, [facility] [place] [facility] [address] [id number] [place] [address]- 3963 Sep, [facility] [place] [facility] [address] [id number] [place] [address]- 0127 Sep, [facility] [place] [facility] [address] [id number] [place] [address]- 5511 July, [facility] [place] [facility] [address] [id number] [place] [address]- 5956 July, [facility] [address] [id number] [place] [address]- 5174 July, [facility] [address] [id number] [place] [address]- [address] July, [facility] [address] [id number] [place] [address]- 2592 Feb, [facility] [address] [id number] [place] [address]- 6598 Feb, [facility] [address] [id number] [place] [address]- 1104 Jan, [facility] [address] [id number] [place] [address]- 3861 Jan, [facility] [address] [id number] [place] [address]- [address] Jan, [facility] [address] [id number] [place] [address]- 5443 Jan, [facility] [address] [id number] [place] [address]- 6[address] Nov, [facility] [address] [id number] [place] [address]- 0090 Aug, [facility] [address] [id number] [place] [address]- [address] July, [facility] [address] [id number] [place] [address]- 3426 Jun, [facility] [place] [facility] [address] [id number] [place] [address]- [address] Apr, [facility] [address] [id number] [place] [address]- 2546 Mar, [facility] [address] [id number] [place] [address]- 0346 Mar, [facility] [place] [facility] [address] [id number] [place] [address]- 4399 Jan, [facility] [place] [facility] [address] [id number] [place] [address]- 4134 Jan, [facility] [place] [facility] [address] [id number] [place] [address]- 2211 Jan, [facility] [place] [facility] [address] [id number] [place] [address]- 6308 Jan, [facility] [place] [facility] [address] [id number] [place] [address]- 9297 Dec, [facility] [place] [facility] [address] [id number] [place] [address]- 8116 Dec, [facility] [place] [facility] [address] [facility] [id number] [place] [address]- 5073 Dec, [facility] [place] [facility] [address] [id number], [place] [address]- 8493 Dec, [facility] [place] [facility] [address] [id number] [place] [address]- 6188 Nov, [facility] [place] [facility] [address] [facility] [id number], [place] [address]- 2656 Oct, [facility] [place] [facility] [address] [facility] [id number], [place] [address]- 7099 July, [facility] [place] [facility] [address] [id number], [place] [address]- 4852 Mar, [facility] [place] [facility] [address] [id number], [place] [address]- 5504 Jan, [facility] [place] [facility] [address] [id number], [place] [address]- 4756 Jan, [facility] [place] [facility] [address] [facility] [id number], [place] [address]- 5176 Dec, [facility] [place] [facility] [address] [id number], [place] [address]- 0006 17 Dec, 2010 [facility] [address] [facility] [id number], [place] [address]- 2016 17 Dec, 2010 [facility] [address] [facility] [id number], [place] [address]- 2106 14 Nov, 2010 [facility] [address] [address]- 1706 July, [facility] [id number] [address]- 5396 14 Jun, 2010 [facility] [address] [facility] [id number], [place] [address]- 5726 May, [facility] [id number] [address]- 4796 14 Apr, 2010 [facility] [address] [address]- 6226 Apr, [facility] [address] [address]- 4446 Mar, [facility] [address] [address]- 1576 Jan, [facility] [id number] [address]- 4256 Dec, [facility] [id number] [address]- 7726 Jun, [facility] [id number] [address]- 7039 Jun, IMMUNIZATIONS No Known Immunizations SOCIAL HISTORY [...]
--- OUTSIDE RECORDS SUMMARY | 2018-01-29 17:30 | XMS REPORT ---
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 Name Role Phone RONAL CAMARGO Unavailable PROBLEMS Type Condition ICD9-CM Code VRA61-BC Code Onset Dates Condition Status SNOMED Code Problem Hypertension I10 Active 06997584 Problem Urge incontinence of urine N39.41 Active 59525172 Problem Arthritis M19.90 Active 4806623 Problem Back pain M54.9 Active 925483783 Problem Functional diarrhea K59.1 Active 52043913 Problem Right inguinal hernia K40.90 Active 428224158 Problem Pure hypercholesterolemia E78.00 Active 205981718 Problem [place] L84 Active 341423732 Problem Prostatism N40.0 Active 97779978 Problem Other chronic pain G89.29 Active 73607375 ALLERGIES No Information ENCOUNTERS Encounter Location Date Diagnosis [facility] [id number] [place] [address] 09333- 6513 Dec, [place] [id number] [place] [address] 57717- 1218 Dec, Right inguinal hernia K40.90 and Edema, unspecified type R60.9 [facility] [id number] [place] [address] 68124- 3356 Dec, Back pain M54.9 [facility] [id number] [place] [address] 75728- 7762 Nov, Back pain M54.9 [facility] [id number] [place] [address] 90173- 5870 Oct, Back pain M54.9 [facility] [id number] [place] [address] 64490- 9728 Oct, [facility] [id number] [place] [address] 37161- 0874 Sep, Back pain M54.9 [facility] [id number] [place] [address] 71707- 6348 Aug, Back pain M54.9 ; Prostatism N40.0 ; Functional diarrhea K59.1 and Right inguinal hernia K40.90 [facility] [id number] [place] [address] 91296- 9114 July, Other chronic pain G89.29 [facility] [id number] [place] [address] 92739- 7618 Jun, Other chronic pain G89.29 [place] [id number] [place] [address] 81842- 0497 May, Other chronic pain G89.29 [place] [id number] [place] [address] 72865- 5215 Apr, Other chronic pain G89.29 [facility] [id number] [place] [address] 31741- 9731 Mar, Other chronic pain G89.29 [facility] [id number] [place] [address] 89377- 0008 Feb, Other chronic pain G89.29 [facility] [id number] [place] [address] 06676 -2827 Feb, Acute upper respiratory infection, unspecified J06.9 and Other viral agents as the cause of diseases classified elsewhere B97.89 [facility] [id number] [place] [address] 46753- 5335 Jan, [facility] [id number] [place] [address] 37759- 0454 Jan, Back pain M54.9 and Prostatism N40.0 [facility] [id number] [place] [address] 47586- 4576 Jan, Other chronic pain G89.29 [facility] [id number] [place] [address] 59147- 8603 Dec, [facility] [id number] [place] [address] 01977- 5676 Dec, Other chronic pain G89.29 [facility] [id number] [place] [address] 50850- 7671 Nov, Other chronic pain G89.29 [facility] [address] 74323- 4800 Nov, Encounter for immunization Z23 [facility] [address] 70147- 4393 Nov, Other chronic pain G89.29 [facility] [id number] [place] [address] 38744- 4946 Oct, Other chronic pain G89.29 [facility] [address] 39138- 1480 Oct, Back pain M54.9 [facility] [id number] [place] [address] 79025- 4637 Sep, Back pain M54.9 [facility] [id number] [place] [address] 07907- 5368 Aug, [facility] [id number] [place] [address] 93954- 2984 Aug, Back pain M54.9 [facility] [id number] [place] [address] 07267- 3851 July, Back pain M54.9 [facility] [id number] [place] [address] 26833- 6537 Jun, Weight loss R63.4 and Postural hypotension I95.1 [facility] [id number] [place] [address] 54229- 3030 Jun, Back pain M54.9 [facility] [id number] [place] [address] 59018- 2235 May, Back pain M54.9 [facility] [address] 55480- 7776 Apr, Back pain M54.9 [facility] [address] 17780- 6336 Apr, Pure hypercholesterolemia E78.00 [facility] [address] 41375- 8505 Apr, Hypertension I10 ; Back pain M54.9 ; Urge incontinence of urine N39.41 and [place] L84 [facility] [address] 00032- 6481 Mar, [facility] [address] 93648- 2665 Mar, Other chronic pain G89.29 [facility] [address] 43359- 2476 Feb, [facility] [address] 95337- 3217 Jan, [facility] [id number] [place] [address] 16393- 4428 Dec, [facility] [id number] [place] [address] 88493- 5429 Nov, [facility] [id number] [place] [address] 39287- 5525 05 Oct, 2015 [facility] [address] 62517- 9418 Sep, Back pain M54.9 [facility] [id number] [place] [address] 12316- 6044 Aug, Back pain M54.9 and Hypertension I10 [facility] [address] 37271 -3155 13 Aug, 2015 Low back pain M54.5 and Other chronic pain G89.29 [facility] [id number] [place] [address] 44014- 9770 10 Aug, 2015 Back pain M54.9 [facility] [id number] [place] [address] 51842- 8166 July, Back pain M54.9 [facility] [address] 57640- 5864 Jun, Back pain M54.9 [facility] [id number] [place] [address] 73083- 1865 May, Back pain M54.9 [facility] [id number] [place] [address] 59199- 3067 Apr, Back pain M54.9 [facility] [id number] [place] [address] 41880- 4063 Mar, Back pain M54.9 [facility] [id number] [place] [address] 52153- 8557 Feb, Prostatitis N41.9 ; Arthritis M19.90 and Hypertension I10 [facility] [id number] [place] [address] 56415- 6039 Feb, [facility] [id number] [place] [address] 39883- 9055 Jan, [facility] [id number] [place] [address] 96676- 3191 Dec, Encounter for immunization Z23 [facility] [id number] [place] [address] 76587- 0217 Dec, [facility] [id number] [place] [address] 05831- 8626 Dec, Eye pain H57.10 [facility] [id number] [place] [address] 47233- 7997 Dec, Contusion of left leg S80.12XA and Right shoulder injury S49.91XA [facility] [id number] [place] [address] 474238- 3106 Dec, Cellulitis L03.90 ; Back pain M54.9 ; Urinary incontinence R32 and Need for ghjxzanvnc-wxhpzfy-ulzitolaa (Tdap) vaccine Z23 [facility] [id number] [place] [address] 439297- 7236 Nov, Need for prophylactic vaccination with tetanus-diphtheria ( TD) V06.5 [facility] [id number] [place] [address] 22872- 5635 Nov, [facility] [id number] [place] [address] 71164- 7521 Oct, [facility] [address] [place] [address] 93601- 4846 Sep, [facility] [id number] [place] [address] [id number]- 9516 Sep, [facility] [address] [place] [address] 51564- 4048 Aug, [facility] [id number] [address]- 8559 July, [facility] [address] 6976 July, [facility] [id number] [place] [address] [id number]- 0978 Jun, [facility] [address] 2297 Jun, [facility] [address] [address]- 1338 May, [facility] [address] 4586 May, [facility] [id number] [place] [address]- 9004 10 Apr, 2014 [facility] [address] [id number] [place] [address]- 2263 Apr, [facility] [place] [facility] [address] [id number] [place] [address]- 1425 Mar, [facility] [address] [id number] [place] [address]- 1090 Mar, [facility] [address] [id number] [place] [address]- 8363 Mar, [facility] [address] [id number] [place] [address]- 8248 Mar, [facility] [address] [id number] [place] [address]- 5231 Mar, [facility] [address] [id number] [place] [address]- 1287 Mar, [facility] [address] [id number] [place] [address]- 0086 Mar, [facility] [address] [id number] [place] [address]- 7499 Mar, [facility] [address] [id number] [place] [address]- 0377 Mar, [facility] [place] [facility] [address] [id number] [place] [address]- 6636 Mar, [facility] [place] [facility] [address] [id number] [place] [address]- 2040 Mar, [facility] [place] [facility] [address] [id number] [place] [address]- 7814 Mar, [facility] [place] [facility] [address] [id number] [place] [address]- 8496 Mar, [facility] [place] [facility] [address] [id number] [place] [address]- 2167 Mar, [facility] [place] [facility] [address] [id number] [place] [address]- 2818 Feb, [facility] [place] [facility] [address] [id number] [place] [address]- 2243 Feb, [facility] [place] [facility] [address] [id number] [place] 9433 Feb, [facility] [place] [facility] [address] [id number] [place] [address]- 8692 Feb, [facility] [place] [facility] [address] [id number] [place]- 3355 Feb, [facility] [place] [facility] [address] [id number] [place] [address]- 8396 Feb, [facility] [place] [facility] [address] [id number] [place] [address]- 2049 Jan, [facility] [place] [facility] [address] [id number] [place] [address]- 4806 Jan, [facility] [place] [facility] [address] [id number] [place] [address]- 1122 Dec, [facility] [place] [facility] [address] [id number] [place] [address]- 2745 Dec, [facility] [place] [facility] [address] [id number] [place] [address]- 0590 Dec, [facility] [place] [facility] [address] [id number] [place] [address]- 7160 Dec, [facility] [place] [facility] [address] [id number] [place] [address]- 0040 Dec, [facility] [place] [facility] [address] [id number] [place] 5598 Dec, [facility] [place] [facility] [address] [id number] [place] 4924 Nov, [facility] [place] [facility] [address] [id number] [place] [address]- 3609 Nov, [facility] [place] [facility] [address] [id number] [place] [address]- 1560 Oct, [facility] [place] [facility] [address] [id number] [place] [address]- 5654 Oct, [facility] [place] [facility] [address] [id number] [place] [address]- 4867 Sep, [facility] [place] [facility] [address] [id number] [place] [address]- 4551 Sep, [facility] [place] [facility] [address] [id number] [place] [address]- 7149 Sep, [facility] [place] [facility] [address] [id number] [place] [address]- 1140 Sep, [facility] [place] [facility] [address] [id number] [place] [address]- 9979 July, [facility] [place] [facility] [address] [id number] [place] [address]- 0699 July, [facility] [place] [facility] [address] [id number] [place] [address]- 1102 July, [facility] [place] [facility] [address] [id number] [place] [address]- 0946 July, [facility] [place] [facility] [address] [id number] [place] [address]- 5014 Feb, [facility] [place] [facility] [address] [id number] [place] [address]- 5519 Feb, [facility] [place] [facility] [address] [id number] [place] [address]- 6653 Jan, [facility] [place] [facility] [address] [id number] [place] [address]- 2018 Jan, [facility] [place] [facility] [address] [id number] [place] [address]- 1801 Jan, [facility] [place] [facility] [address] [id number] [place] [address]- 1959 Jan, [facility] [place] [facility] [address] [id number] [place] [address]- 3705 Nov, [facility] [place] [facility] [address] [id number] [place] [address]- 5863 Aug, [facility] [place] [facility] [address] [id number] [place] [address]- 9978 July, [facility] [place] [facility] [address] [id number] [place] [address]- 2535 Jun, [facility] [place] [facility] [address] [id number] [place] [address]- 6603 Apr, [facility] [place] [facility] [address] [id number] [place] [address]- 8593 Mar, [facility] [place] [facility] [address] [id number] [place] [address]- 1655 Mar, [facility] [place] [facility] [address] [id number] [place] [address]- 4544 Jan, [facility] [place] [facility] [address] [id number] [place] [address]- 6665 Jan, [facility] [place] [facility] [address] [id number] [place] [address]- 5798 Jan, [facility] [place] [facility] [address] [id number] [place] [address]- 7754 Jan, [facility] [place] [facility] [address] [id number] [place] [address]- 4235 Dec, [facility] [place] [facility] [address] [id number] [place] [address]- 1526 Dec, [facility] [place] [facility] [address] [id number] [place] [address]- 9572 Dec, [facility] [place] [facility] [address] [id number] [place] [address]- 5851 Dec, [facility] [place] [facility] [address] [id number] [place] [address]- 3363 Nov, [facility] [place] [facility] [address] [id number] [place] [address]- 2546 Oct, [facility] [place] [facility] [address] [id number] [place] [address] 2546 July, [facility] [place] [facility] [address] [id number] [place] [address]- 2546 Mar, [facility] [place] [facility] [address] [id number] [place] [address]- 0801 Jan, [facility] [place] [facility] [address] [id number] [place] [address]- 0736 Jan, [facility] [place] [facility] [address] [id number] [place] [address]- 0227 Dec, [facility] [place] [facility] [address] [id number] [place] [address]- 0668 Dec, [facility] [place] [facility] [address] [id number] [place] [address]- 4797 Dec, [facility] [place] [facility] [address] [id number] [place] [address]- 0590 Nov, [facility] [place] [facility] [address] [id number], [place] [address]- 9566 July, [facility] [place] [facility] [address] [id number], [place] [address] 2541 Jun, [facility] [place] [facility] [address] [id number] [place] [address]- 2546 May, [facility] [place] [facility] [address] [id number] [place] [address] 2546 14 Apr, 2010 [facility] [place] [facility] [address] [id number] [place] [address]- 2546 10 Apr, 2010 [facility] [place] [facility] [address] [facility] [id number] [place] [address]- 2546 Mar, [facility] [address] [id number] [address]- 9763 Jan, [facility] [id number] [address]- 1708 Dec, [facility] [id number] [address]- 8044 Jun, [facility] [id number] 9096 Jun, IMMUNIZATIONS No Known Immunizations SOCIAL HISTORY Never Assessed REASON FOR VISIT Elevated BP PLAN OF CARE VITAL SIGNS MEDICATIONS Unknown Medications RESULTS No Results PROCEDURES No Known procedures INSTRUCTIONS MEDICATIONS ADMINISTERED No Known Medications MEDICAL (GENERAL) HISTORY Type Description Date Medical History prostatism Medical History chronic pain Medical History hypertension Surgical History No Surgical history information
--- OUTSIDE RECORDS SUMMARY | 2018-01-29 17:30 | XMS REPORT ---
Author Author RONAL CAMARGO Organization [facility] Address [address] [place] [address] Care Team Providers Care Engineering Job Titles Name Role Phone RONAL CAMARGO Unavailable PROBLEMS Type Condition ICD9-CM Code VSA72-ES Code Onset Dates Condition Status SNOMED Code Problem Hypertension I10 Active 46035192 Problem Urge incontinence of urine N39.41 Active 83893981 Problem Arthritis M19.90 Active 3901287 Problem Back pain M54.9 Active 736308080 Problem Functional diarrhea K59.1 Active 86004728 Problem Right inguinal hernia K40.90 Active 961225585 Problem Pure hypercholesterolemia E78.00 Active 445707717 Problem Hickman L84 Active 069961524 Problem Prostatism N40.0 Active 96181999 Problem Other chronic pain G89.29 Active 81205814 ALLERGIES No Information ENCOUNTERS Encounter Location Date Diagnosis [facility] [id number] [place] [address] 27402- 0189 Jan, [facility] [id number] [place] [address] 10643- 9154 Dec, [facility] [id number] [place] [address] 43452- 6998 Dec, [facility] [id number] [place] [address] 82266- 2405 Dec, [facility] [id number] [place] [address] 61553- 9231 Dec, Right inguinal hernia K40.90 and Edema, unspecified type R60.9 [facility] [id number] [place] [address] 24863- 2801 Dec, Back pain M54.9 [facility] [address] 21416- 1450 Nov, Back pain M54.9 [facility] [id number] [place] [address] 09481- 1788 Oct, Back pain M54.9 [facility] [id number] [place] [address] 74809- 4486 Oct, [facility] [id number] [place] [address] 70355- 7746 Sep, Back pain M54.9 [facility] [id number] [place] [address] 72630- 4091 Aug, Back pain M54.9 ; Prostatism N40.0 ; Functional diarrhea K59.1 and Right inguinal hernia K40.90 [facility] [id number] [place] [address] 62290- 5722 July, Other chronic pain G89.29 [facility] [id number] [place] [address] 38374- 1241 Jun, Other chronic pain G89.29 [facility] [id number] [place] [address] 50680- 9966 May, Other chronic pain G89.29 [facility] [id number] [place] [address] 17955- 6712 Apr, Other chronic pain G89.29 [facility] [id number] [place] [address] 61710- 2146 Mar, Other chronic pain G89.29 [facility] [id number] [place] [address] 84981- 9089 Feb, Other chronic pain G89.29 [facility] [id number] [place] [address] 12917 -7770 Feb, Acute upper respiratory infection, unspecified J06.9 and Other viral agents as the cause of diseases classified elsewhere B97.89 [facility] [id number] [place] [address] 23707- 4673 Jan, [facility] [id number] [place] [address] 28689- 2293 Jan, Back pain M54.9 and Prostatism N40.0 [facility] [address] [address] 7294 Jan, Other chronic pain G89.29 [facility] [id number] [place] [address] 80837- 4988 Dec, [facility] [id number] [place] [address] 97512- 5790 Dec, Other chronic pain G89.29 [facility] [id number] [place] [address] 02652- 7371 Nov, Other chronic pain G89.29 [facility] [id number] [place] [address] 26550- 9041 Nov, Encounter for immunization Z23 [facility] [id number] [place] [address] 56901- 8555 Nov, Other chronic pain G89.29 [facility] [id number] [place] [address] 99518- 8092 Oct, Other chronic pain G89.29 [facility] [id number] [place] [address] 89533- 9224 Oct, Back pain M54.9 [facility] [id number] [place] [address] 00789- 6557 Sep, Back pain M54.9 [facility] [id number] [place] [address] 95917- 1139 Aug, [facility] [id number] [place] [address] 54265- 9096 Aug, Back pain M54.9 [facility] [id number] [place] [address] 65551- 8858 July, Back pain M54.9 [facility] [id number] [place] [address] 57438- 9848 Jun, Weight loss R63.4 and Postural hypotension I95.1 [facility] [address] 01503- 3587 14 Jun, 2016 Back pain M54.9 [facility] [address] 71472- 3346 May, Back pain M54.9 [facility] [address] 38731- 9632 Apr, Back pain M54.9 [facility] [address] 20306- 8535 Apr, Pure hypercholesterolemia E78.00 [facility] [address] 94924- 4422 Apr, Hypertension I10 ; Back pain M54.9 ; Urge incontinence of urine N39.41 and Hickman L84 [facility] [address] 01667- 1486 Mar, [facility] [address] 10264- 8284 Mar, Other chronic pain G89.29 [facility] [id number] [place] [address] 04365- 7561 Feb, [facility] [address] 50955- 6591 Jan, [facility] [address] 58805- 0190 28 Dec, 2015 [facility] [address] 58931- 1529 28 Nov, 2015 [facility] [address] 35872- 0473 05 Oct, 2015 [facility] [id number] [place] [address] 71344- 6586 12 Sep, 2015 Back pain M54.9 [facility] [address] 28262- 3369 17 Aug, 2015 Back pain M54.9 and Hypertension I10 [facility] [id number] [place] [address] 98541 -1883 13 Aug, 2015 Low back pain M54.5 and Other chronic pain G89.29 [facility] [id number] [place] [address] 73526- 9343 10 Aug, 2015 Back pain M54.9 [facility] [address] 65832- 9550 July, Back pain M54.9 [facility] [id number] [place] [address] 40244- 1895 06 Jun, 2015 Back pain M54.9 [facility] [address] 27264- 1314 09 May, 2015 Back pain M54.9 [facility] [address] 24292- 0070 04 Apr, 2015 Back pain M54.9 [facility] [id number] [place] [address] 36731- 2744 Mar, Back pain M54.9 [facility] [id number] [place] [address] 22327- 3767 Feb, Prostatitis N41.9 ; Arthritis M19.90 and Hypertension I10 [facility] [id number] [place] [address] 28628- 3021 15 Feb, 2015 [facility] [id number] [place] [address] 18862- 1648 Jan, [facility] [id number] [place] [address] 72385- 7830 Dec, Encounter for immunization Z23 [facility] [address] [address]- 5129 Dec, [facility] [id number] [place] [address] 71310- 4639 Dec, Eye pain H57.10 [facility] [address] [place] [address] 42722- 6315 Dec, Contusion of left leg S80.12XA and Right shoulder injury S49.91XA [facility] [id number] [place] [address] 71674- 1376 Dec, Cellulitis L03.90 ; Back pain M54.9 ; Urinary incontinence R32 and Need for cvhqrbkltx-ldujwfa-lxblrhgfh (Tdap) vaccine Z23 [place] [id number] [place] [address] 66823- 7748 Nov, Need for prophylactic vaccination with tetanus-diphtheria ( TD) V06.5 [facility] [address] [place] [address] 30790- 6843 Nov, [facility] [address] [place] [address] 83845- 8397 Oct, [facility] [address] [place] [address] 84491- 1601 Sep, [facility] [address] [address]- 5914 Sep, [facility] [address] [place] [address] 64830- 5534 Aug, [facility] [address] [address]- 8043 July, [facility] [address] [place] [address] 354664- 7165 July, [facility] [address] [address]- 8761 Jun, [facility] [id number] [address]- 7086 Jun, [facility] [address] [id number] [place] [address]- 5296 May, [facility] [place] [facility] [address] [id number] [place] [address]- 5916 May, [facility] [place] [facility] [address] [id number] [place] [address]- 2446 Apr, [facility] [place] [facility] [address] [id number] [place] [address]- 2609 Apr, [facility] [place] [facility] [address] [id number] [place] [address]- 6201 Mar, [facility] [place] [facility] [address] [id number] [place] [address]- 2965 Mar, [facility] [place] [facility] [address] [id number] [place] [address]- 0132 Mar, [facility] [address] [id number] [place] [address]- 3321 Mar, [facility] [place] [facility] [address] [id number] [place] [address]- 5768 Mar, [facility] [place] [facility] [address] [id number] [place] [address]- 5212 Mar, [facility] [place] [facility] [address] [id number] [place] [address]- 2982 Mar, [facility] [place] [facility] [address] [id number] [place] [address]- 254 Mar, [facility] [place] [facility] [address] [id number] [place] [address]- 7723 Mar, [facility] [place] [facility] [address] [id number] [place] [address]- 4836 Mar, [facility] [place] [facility] [address] [id number] [place] [address]- 3025 Mar, [facility] [place] [facility] [address] [id number] [place] [address]- 2179 Mar, [facility] [place] [facility] [address] [id number] [place] [address]- 0380 Mar, [facility] [place] [facility] [address] [id number] [place] 0000 Mar, [facility] [place] [facility] [address] [id number] [place] [address]- 6953 Feb, [facility] [place] [facility] [address] [id number] [place] [address]- 7672 Feb, [facility] [place] [facility] [address] [id number] [place] [address]- 6051 Feb, [facility] [place] [facility] [address] [id number] [place] [address]- 0647 Feb, [facility] [place] [facility] [address] [id number] [place] [address]- 5923 Feb, [facility] [place] [facility] [address] [id number] [place] [address]- 3246 Feb, [facility] [place] [facility] [address] [id number] [place] [address]- 1712 Jan, [facility] [place] [facility] [address] [id number] [place] [address]- 0415 Jan, [facility] [place] [facility] [address] [id number] [place] [address]- 8941 Dec, [facility] [place] [facility] [address] [id number] [place] [address]- 1280 Dec, [facility] [place] [facility] [address] [id number] [place] [address]- 3740 Dec, [facility] [place] [facility] [address] [id number] [place] 9150 Dec, [facility] [place] [facility] [address] [id number] [place] [address]- 9312 Dec, [facility] [place] [facility] [address] [id number] [place] [address]- 3116 Dec, [facility] [place] [facility] [address] [id number] [place] [address]- 2991 Nov, [facility] [place] [facility] [address] [id number] [place] [address]- 1796 Nov, [facility] [place] [facility] [address] [id number] [place] [address]- 1756 Oct, [facility] [place] [facility] [address] [id number] [place] [address]- 2250 Oct, [facility] [place] [facility] [address] [id number] [place] [address]- 6382 Sep, [facility] [place] [facility] [address] [id number] [place] [address]- 5986 Sep, [facility] [place] [facility] [address] [id number] [place] [address]- 1239 Sep, [facility] [place] [facility] [address] [id number] [place] [address]- 2614 Sep, [facility] [place] [facility] [address] [id number] [place] [address]- 7048 July, [facility] [place] [facility] [address] [id number] [place] [address]- 8562 July, [facility] [place] [facility] [address] [id number] [place] [address]- 7508 July, [facility] [place] [facility] [address] [id number] [place] [address]- 7603 July, [facility] [place] [facility] [address] [id number] [place] [address]- 5473 Feb, [facility] [place] [facility] [address] [id number] [place] [address]- 7011 Feb, [facility] [place] [facility] [address] [id number] [place] [address]- 2079 14 Jan, 2013 [facility] [place] [facility] [address] [id number] [place] [address]- 8565 14 Jan, 2013 [facility] [place] [facility] [address] [id number] [place] [address]- 3847 Jan, [facility] [place] [facility] [address] [id number] [place] [address]- 6891 Jan, [facility] [place] [facility] [address] [id number] [place] [address]- 5749 30 Nov, 2012 [facility] [place] [facility] [address] [id number] [place] [address]- 9331 Aug, [facility] [place] [facility] [address] [id number] [place] [address]- 0184 July, [facility] [place] [facility] [address] [id number] [place] [address]- 3577 Jun, [facility] [place] [facility] [address] [id number] [place] [address]- 5157 Apr, [facility] [place] [facility] [address] [id number] [place] [address]- 0996 Mar, [facility] [place] [facility] [address] [id number] [place] [address]- 9581 Mar, [facility] [place] [facility] [address] [id number] [place] [address]- 9132 Jan, [facility] [place] [facility] [address] [id number] [place] [address]- 9833 Jan, [facility] [place] [facility] [address] [id number] [place] [address]- 0879 Jan, [facility] [place] [facility] [address] [id number] [place] [address]- 7318 Jan, [facility] [place] [facility] [address] [id number] [place] [address]- 7574 Dec, [facility] [place] [facility] [address] [id number] [place] [address]- 6805 Dec, [facility] [place] [facility] [address] [id number] [place] [address]- 7686 Dec, [facility] [place] [facility] [address] [id number] [place] [address] 254 Dec, [facility] [place] [facility] [address] [id number] [place] [address]- 1817 Nov, [facility] [place] [facility] [address] [id number] [place] [address]- 2897 Oct, [facility] [place] [facility] [address] [id number] [place] [address]- 7112 July, [facility] [place] [facility] [address] [id number] [place] [address]- 6223 Mar, [facility] [place] [facility] [address] [id number] [place] [address]- 3050 Jan, [facility] [place] [facility] [address] [id number] [place] [address]- 3993 Jan, [facility] [place] [facility] [address] [id number] [place] [address]- 2534 Dec, [facility] [place] [facility] [address] [id number], [place] [address]- 3341 Dec, [facility] [place] [facility] [address] [id number], [place] [address] 2543 Dec, [facility] [place] [facility] [address] [id number] [place] [address]- 0418 Nov, [facility] [place] [facility] [address] [id number] [place] [address]- 1788 July, [facility] [place] [facility] [address] [id number] [place] [address]- 5550 Jun, [facility] [place] [facility] [id number] [address]- 7274 14 May, 2010 [facility] [id number] [address]- 1517 14 Apr, 2010 [facility] [address] [address]- 4235 10 Apr, 2010 [facility] [address] [address]- 2163 Mar, [facility] [address] [address]- 2187 Jan, [facility] [address] [address]- 3243 Dec, [facility] [address] [address]- 3396 Jun, [facility] [address] [address]- 4053 Jun, IMMUNIZATIONS No Known Immunizations SOCIAL HISTORY Never Assessed REASON FOR VISIT TCM call/Med list update PLAN OF CARE VITAL SIGNS MEDICATIONS Medication Instructions Dosage Frequency Start Date End Date Duration Status Lomotil 2.5-0.025 MG Orally 2 times a day 1 tablet as needed 12h 21 Aug, 2017 Not-Taking Hydrocodone-Acetaminophen 5-325 MG Orally 3 times a day 1 tablet 8h 11 Dec 28 days Active Furosemide 40 MG Orally Once a day 1 tablet 24h 30 day(s) Active Flomax 0.4 MG Orally Once a day 1 capsule 24h Not-Taking Klor-Con M20 20 MEQ Orally Once a day 1 tablet with food 24h 30 day(s ) Active Metoprolol Succinate 25 MG Orally Once a day 1 capsule 24h 30 day(s) Active Losartan Potassium 50 MG Orally Once a day 1 tablet 24h 30 day(s) Active Proscar 5 mg Orally Once a day 1 tablet 24h 30 Jan, 2017 30 day(s) Not -Taking RESULTS No Results PROCEDURES No Known procedures INSTRUCTIONS MEDICATIONS ADMINISTERED No Known Medications MEDICAL (GENERAL) HISTORY Type Description Date Medical History prostatism Medical History chronic pain Medical History hypertension Surgical History No Surgical history information Hospitalization History Cardiomyopathy-[facility] 01/12/18
--- OUTSIDE RECORDS SUMMARY | 2018-01-29 17:30 | XMS REPORT ---
Author Author RONAL CAMARGO Organization [facility] Address [address] [place] [address] Care Team Providers Care Laser Specialist Name Role Phone RONAL CAMARGO Unavailable PROBLEMS Type Condition ICD9-CM Code [id number] Code Onset Dates Condition Status SNOMED Code Problem Hypertension I10 Active 58286117 Problem Urge incontinence of urine N39.41 Active 04958135 Problem Arthritis M19.90 Active 3246400 Problem Back pain M54.9 Active 809482852 Problem Functional diarrhea K59.1 Active 06128787 Problem Right inguinal hernia K40.90 Active 975682754 Problem Pure hypercholesterolemia E78.00 Active 228781507 Problem [place] L84 Active 311657220 Problem Prostatism N40.0 Active 70444834 Problem Other chronic pain G89.29 Active [id number] ALLERGIES No Information ENCOUNTERS Encounter Location Date Diagnosis [facility] [id number] [place] [address] 51980- 0162 Jan, [facility] [address] 47334- 6207 Dec, [facility] [id number] [place] [address] 60332- 8728 Dec, [facility] [address] 49152- 5779 Dec, Right inguinal hernia K40.90 and Edema, unspecified type R60.9 [facility] [address] 30226- 0932 Dec, Back pain M54.9 [facility] [id number] [place] [address] 17724- 6246 Nov, Back pain M54.9 [facility] [address] [place] [address]- 9313 Oct, Back pain M54.9 [facility] [id number] [place] [address] 75850- 0140 Oct, [facility] [id number] [place] [address] 30356- 3573 Sep, Back pain M54.9 [facility] [address] 55853- 0351 Aug, Back pain M54.9 ; Prostatism N40.0 ; Functional diarrhea K59.1 and Right inguinal hernia K40.90 [facility] [address] 18975- 7708 July, Other chronic pain G89.29 [facility] [id number] [place] [address] 78404- 6604 Jun, Other chronic pain G89.29 [facility] [id number] [place] [address] 81465- 8809 May, Other chronic pain G89.29 [facility] [id number] [place] [address] 48105- 4290 Apr, Other chronic pain G89.29 [facility] [id number] [place] [address] 34940- 8304 Mar, Other chronic pain G89.29 [facility] [id number] [place] [address] 40602- 7569 Feb, Other chronic pain G89.29 [facility] [id number] [place] [address] 01095 -3812 Feb, Acute upper respiratory infection, unspecified J06.9 and Other viral agents as the cause of diseases classified elsewhere B97.89 [facility] [id number] [place] [address] 32237- 0452 Jan, [facility] [id number] [place] [address] 37388- 1207 Jan, Back pain M54.9 and Prostatism N40.0 [facility] [id number] [place] [address] 51135- 1435 Jan, Other chronic pain G89.29 [facility] [id number] [place] [address] 43792- 8606 Dec, [facility] [id number] [place] [address] 37308- 4575 Dec, Other chronic pain G89.29 [facility] [id number] [place] [address] 18316- 5300 Nov, Other chronic pain G89.29 [facility] [id number] [place] [address] 53029- 3832 Nov, Encounter for immunization Z23 [facility] [id number] [place] [address] 59842- 4933 Nov, Other chronic pain G89.29 [facility] [id number] [place] [address] 69979- 3867 Oct, Other chronic pain G89.29 [facility] [id number] [place] [address] 19870- 7719 Oct, Back pain M54.9 [facility] [id number] [place] [address] 78740- 8400 Sep, Back pain M54.9 [facility] [id number] [place] [address] 52692- 2542 Aug, [facility] [id number] [place] [address] 19388- 0609 Aug, Back pain M54.9 [facility] [id number] [place] [address] 85718- 4173 July, Back pain M54.9 [facility] [id number] [place] [address] 78401- 2241 Jun, Weight loss R63.4 and Postural hypotension I95.1 [facility] [id number] [place] [address] 04343- 8655 Jun, Back pain M54.9 [facility] [id number] [place] [address] 89296- 8068 May, Back pain M54.9 [facility] [address] 16963- 6686 Apr, Back pain M54.9 [facility] [address] 84372- 9285 Apr, Pure hypercholesterolemia E78.00 [facility] [address] 77728- 6783 Apr, Hypertension I10 ; Back pain M54.9 ; Urge incontinence of urine N39.41 and [place] L84 [facility] [address] 28815- 0274 Mar, [facility] [address] 27781- 0500 Mar, Other chronic pain G89.29 [facility] [address] 57789- 1675 Feb, [facility] [id number] [place] [address] 33105- 5867 Jan, [facility] [id number] [place] [address] 16727- 6362 Dec, [facility] [id number] [place] [address] 79688- 3130 28 Nov, 2015 [facility] [id number] [place] [address] 58731- 8513 05 Oct, 2015 [facility] [id number] [place] [address] 97049- 8446 Sep, Back pain M54.9 [facility] [id number] [place] [address] 47668- 3628 17 Aug, 2015 Back pain M54.9 and Hypertension I10 [facility] [id number] [place] [address] 87840 -7408 13 Aug, 2015 Low back pain M54.5 and Other chronic pain G89.29 [facility] [address] 65545- 8888 10 Aug, 2015 Back pain M54.9 [facility] [id number] [place] [address] 66619- 6964 July, Back pain M54.9 [facility] [address] 61637- 4756 06 Jun, 2015 Back pain M54.9 [facility] [id number] [place] [address] 17631- 7283 May, Back pain M54.9 [facility] [id number] [place] [address] 23063- 9643 04 Apr, 2015 Back pain M54.9 [facility] [address] 60431- 5299 Mar, Back pain M54.9 [facility] [id number] [place] [address] 81621- 1840 17 Feb, 2015 Prostatitis N41.9 ; Arthritis M19.90 and Hypertension I10 [facility] [id number] [place] [address] 10028- 4759 15 Feb, 2015 [facility] [address] 78643- 7310 Jan, [facility] [id number] [place] [address] 14203- 4723 Dec, Encounter for immunization Z23 [facility] [id number] [place] [address] 26869- 4553 Dec, [facility] [id number] [place] [address] 84970- 5939 Dec, Eye pain H57.10 [facility] [id number] [place] [address] 30246- 5468 Dec, Contusion of left leg S80.12XA and Right shoulder injury S49.91XA [facility] [id number] [place] [address] 930092- 5889 Dec, Cellulitis L03.90 ; Back pain M54.9 ; Urinary incontinence R32 and Need for tnuchkmrck-uzpdhjz-fxukpeori (Tdap) vaccine Z23 [facility] [id number] [place] [address] 575582- 7729 Nov, Need for prophylactic vaccination with tetanus-diphtheria ( TD) V06.5 [facility] [id number] [place] [address] 98625- 5990 Nov, [facility] [id number] [place] [address] 34925- 8717 Oct, [facility] [id number] [place] [address] 23835- 1486 Sep, [facility] [id number] [place] [address] 53526- 6757 Sep, [facility] [address] [address]- 3136 Aug, [facility] [id number] [place] [address] 84372- 3609 July, [facility] [address] [address]- 5641 July, [facility] [id number] [place] [address] 69977- 2254 Jun, [facility] [address] 8718 Jun, [facility] [id number] [place] [address]- 0574 May, [facility] [address] [id number] [place] [address]- 1353 May, [facility] [place] [facility] [address] [id number] [place] [address]- 2106 Apr, [facility] [place] [facility] [address] [id number] [place] [address]- 2356 Apr, [facility] [place] [facility] [address] [id number] [place] [address]- 6276 Mar, [facility] [place] [facility] [address] [id number] [place] [address]- 2735 Mar, [facility] [place] [facility] [address] [id number] [place] [address]- 1819 Mar, [facility] [place] [facility] [address] [id number] [place] [address]- 5134 Mar, [facility] [address] [id number] [place] [address]- 4122 Mar, [facility] [place] [facility] [address] [id number] [place] [address]- 3324 Mar, [facility] [place] [facility] [address] [id number] [place] [address]- 3441 Mar, [facility] [place] [facility] [address] [id number] [place] [address]- 4420 Mar, [facility] [place] [facility] [address] [id number] [place] [address]- 2549 Mar, [facility] [place] [facility] [address] [id number] [place] [address]- 3078 Mar, [facility] [place] [facility] [address] [id number] [place] [address]- 6486 Mar, [facility] [place] [facility] [address] [id number] [place] [address]- 8499 Mar, [facility] [place] [facility] [address] [id number] [place] [address]- 7723 Mar, [facility] [place] [facility] [address] [id number] [place] [address]- 7824 Mar, [facility] [place] [facility] [address] [id number] [place] [address]- 6359 Feb, [facility] [place] [facility] [address] [id number] [place] [address]- 5218 Feb, [facility] [place] [facility] [address] [id number] [place] [address]- 2011 Feb, [facility] [place] [facility] [address] [id number] [place] [address]- 1814 Feb, [facility] [place] [facility] [address] [id number] [place] [address]- 2000 Feb, [facility] [place] [facility] [address] [id number] [place] [address]- 9120 Feb, [facility] [place] [facility] [address] [id number] [place] [address]- 4079 Jan, [facility] [place] [facility] [address] [id number] [place] [address]- 3971 Jan, [facility] [place] [facility] [address] [id number] [place] [address]- 2668 Dec, [facility] [place] [facility] [address] [id number] [place] [address]- 3576 Dec, [facility] [place] [facility] [address] [id number] [place] [address]- 4036 Dec, [facility] [place] [facility] [address] [id number] [place] [address]- 3896 Dec, [facility] [place] [facility] [address] [id number] [place] 3979 Dec, [facility] [place] [facility] [address] [id number] [place] [address]- 5437 Dec, [facility] [place] [facility] [address] [id number] [place] [address]- 2012 Nov, [facility] [place] [facility] [address] [id number] [place] [address]- 8790 Nov, [facility] [place] [facility] [address] [id number] [place] [address]- 1108 Oct, [facility] [place] [facility] [address] [id number] [place] [address]- 9830 Oct, [facility] [place] [facility] [address] [id number] [place] [address]- 7525 Sep, [facility] [place] [facility] [address] [id number] [place] [address]- 2608 Sep, [facility] [place] [facility] [address] [id number] [place] [address]- 9153 Sep, [facility] [place] [facility] [address] [id number] [place] [address]- 5168 Sep, [facility] [place] [facility] [address] [id number] [place] [address]- 0503 July, [facility] [place] [facility] [address] [id number] [place] [address]- 3677 July, [facility] [place] [facility] [address] [id number] [place] [address]- 0460 July, [facility] [place] [facility] [address] [id number] [place] [address]- 3532 July, [facility] [place] [facility] [address] [id number] [place] [address]- 6086 Feb, [facility] [place] [facility] [address] [id number] [place] [address]- 5253 Feb, [facility] [place] [facility] [address] [id number] [place] [address]- 2506 Jan, [facility] [place] [facility] [address] [id number] [place] [address]- 0062 14 Jan, 2013 [facility] [place] [facility] [address] [id number] [place] [address]- 3236 Jan, [facility] [place] [facility] [address] [id number] [place] [address]- 3966 Jan, [facility] [place] [facility] [address] [id number] [place] [address]- 2475 30 Nov, 2012 [facility] [place] [facility] [address] [id number] [place] [address]- 9944 Aug, [facility] [place] [facility] [address] [id number] [place] [address]- 8432 July, [facility] [place] [facility] [address] [id number] [place] [address]- 0772 Jun, [facility] [place] [facility] [address] [id number] [place] [address]- 1720 Apr, [facility] [place] [facility] [address] [id number] [place] [address]- 5053 Mar, [facility] [place] [facility] [address] [id number] [place] [address]- 5389 Mar, [facility] [place] [facility] [address] [id number] [place] [address]- 9933 Jan, [facility] [place] [facility] [address] [id number] [place] [address]- 6335 Jan, [facility] [place] [facility] [address] [id number] [place] [address]- 2555 Jan, [facility] [place] [facility] [address] [id number] [place] [address]- 2125 Jan, [facility] [place] [facility] [address] [id number] [place] [address]- 8150 18 Dec, 2011 [facility] [place] [facility] [address] [id number] [place] [address]- 5660 Dec, [facility] [place] [facility] [address] [id number] [place] [address]- 1898 Dec, [facility] [place] [facility] [address] [id number] [place] [address]- 3126 Dec, [facility] [place] [facility] [address] [id number] [place] [address] 2546 Nov, [facility] [place] [facility] [address] [id number] [place] [address]- 2546 Oct, [facility] [place] [facility] [address] [id number] [place] [address]- 3814 July, [facility] [place] [facility] [address] [id number] [place] [address]- 2526 Mar, [facility] [place] [facility] [address] [id number] [place] [address]- 2411 Jan, [facility] [place] [facility] [address] [id number] [place] [address]- 7682 Jan, [facility] [place] [facility] [address] [id number] [place] [address]- 4086 Dec, [facility] [place] [facility] [address] [id number] [place] [address]- 2781 Dec, [facility] [place] [facility] [address] [id number], [place] [address]- 8730 17 Dec, 2010 [facility] [place] [facility] [address] [id number], [place] [address] 2540 14 Nov, 2010 [facility] [place] [facility] [address] [id number] [place] [address] 2540 July, [facility] [place] [facility] [address] [id number] [place] [address] 2542 Jun, [facility] [place] [facility] [address] [id number] [place] [address]- 2548 May, [facility] [place] [facility] [id number] [address]- 3413 14 Apr, 2010 [facility] [id number] [address]- 4163 10 Apr, 2010 [facility] [address] [address]- 7468 14 Mar, 2010 [facility] [address] [place] [address]- 3464 Jan, [facility] [address]- 4481 Dec, [facility] [id number] [address]- 7043 Jun, [facility] [id number] [address]- 0447 Jun, IMMUNIZATIONS No Known Immunizations SOCIAL HISTORY Never Assessed REASON FOR VISIT referral request PLAN OF CARE VITAL SIGNS MEDICATIONS Unknown Medications RESULTS No Results PROCEDURES No Known procedures INSTRUCTIONS MEDICATIONS ADMINISTERED No Known Medications MEDICAL (GENERAL) HISTORY Type Description Date Medical History prostatism Medical History chronic pain Medical History hypertension Surgical History No Surgical history information
--- OUTSIDE RECORDS SUMMARY | 2018-01-29 17:31 | XMS REPORT ---
Author Author RONAL CAMARGO Organization [facility] Address [address] [place] [address] Care Team Providers Care Occ Ther Name Role Phone RONAL CAMARGO Unavailable PROBLEMS Type Condition ICD9-CM Code [id number] Code Onset Dates Condition Status SNOMED Code Problem Hypertension I10 Active 44991241 Problem Urge incontinence of urine N39.41 Active 56475189 Problem Arthritis M19.90 Active 7470811 Problem Back pain M54.9 Active 743533018 Problem Functional diarrhea K59.1 Active 49836720 Problem Right inguinal hernia K40.90 Active 971903489 Problem Pure hypercholesterolemia E78.00 Active 591580270 Problem Basin L84 Active 459721250 Problem Prostatism N40.0 Active 92120969 Problem Other chronic pain G89.29 Active 90619858 ALLERGIES No Known Allergies ENCOUNTERS Encounter Location Date Diagnosis [place] [id number] [place] [address] 44962- 5447 Dec, [place] [id number] [place] [address] 20422- 3863 Dec, Right inguinal hernia K40.90 and Edema, unspecified type R60.9 [facility] [id number] [place] [address] 40022- 6689 Dec, Back pain M54.9 [facility] [id number] [place] [address] 68354- 9343 Nov, Back pain M54.9 [facility] [id number] [place] [address] 02256- 5719 16 Oct, 2017 Back pain M54.9 [facility] [id number] [place] [address] 91647- 7186 Oct, [place] [id number] [place] [address] 25123- 5096 Sep, Back pain M54.9 [facility] [id number] [place] [address] 43957- 6156 Aug, Back pain M54.9 ; Prostatism N40.0 ; Functional diarrhea K59.1 and Right inguinal hernia K40.90 [facility] [id number] [place] [address] 20678- 5123 July, Other chronic pain G89.29 [facility] [id number] [place] [address] 76606- 1001 Jun, Other chronic pain G89.29 [place] [id number] [place] [address] 05876- 1210 May, Other chronic pain G89.29 [place] [id number] [place] [address] 39992- 3833 Apr, Other chronic pain G89.29 [facility] [id number] [place] [address] 47065- 6429 Mar, Other chronic pain G89.29 [facility] [id number] [place] [address] 70117- 5258 Feb, Other chronic pain G89.29 [facility] [id number] [place] [address] 47543 -9786 Feb, Acute upper respiratory infection, unspecified J06.9 and Other viral agents as the cause of diseases classified elsewhere B97.89 [facility] [id number] [place] [address] 86716- 9130 Jan, [facility] [id number] [place] [address] 40632- 9160 Jan, Back pain M54.9 and Prostatism N40.0 [facility] [id number] [place] [address] 44846- 4846 Jan, Other chronic pain G89.29 [facility] [id number] [place] [address] 81711- 7368 Dec, [facility] [id number] [place] [address] 40860- 0248 Dec, Other chronic pain G89.29 [facility] [id number] [place] [address] 85623- 5777 Nov, Other chronic pain G89.29 [facility] [id number] [place] [address] 12507- 1762 Nov, Encounter for immunization Z23 [facility] [address] 92551- 5873 Nov, Other chronic pain G89.29 [facility] [id number] [place] [address] 24668- 0798 Oct, Other chronic pain G89.29 [facility] [address] 48742- 2140 Oct, Back pain M54.9 [facility] [id number] [place] [address] 30946- 1684 Sep, Back pain M54.9 [facility] [id number] [place] [address] 94418- 7219 Aug, [facility] [id number] [place] [address] 70225- 3121 Aug, Back pain M54.9 [facility] [id number] [place] [address] 21183- 8337 July, Back pain M54.9 [facility] [id number] [place] [address] 34531- 8800 Jun, Weight loss R63.4 and Postural hypotension I95.1 [facility] [id number] [place] [address] 25469- 6193 Jun, Back pain M54.9 [facility] [id number] [place] [address] 03359- 2067 May, Back pain M54.9 [facility] [address] 50890- 2768 Apr, Back pain M54.9 [facility] [address] 47654- 2443 Apr, Pure hypercholesterolemia E78.00 [facility] [address] 79805- 6823 Apr, Hypertension I10 ; Back pain M54.9 ; Urge incontinence of urine N39.41 and Basin L84 [facility] [address] 05438- 4225 Mar, [facility] [address] 47547- 9191 Mar, Other chronic pain G89.29 [facility] [address] 97321- 5494 Feb, [facility] [address] 64861- 7800 Jan, [facility] [id number] [place] [address] 78967- 9539 Dec, [facility] [id number] [place] [address] 88639- 9669 Nov, [facility] [id number] [place] [address] 22614- 0859 05 Oct, 2015 [facility] [address] 83292- 6371 Sep, Back pain M54.9 [facility] [id number] [place] [address] 14637- 9690 Aug, Back pain M54.9 and Hypertension I10 [facility] [id number] [place] [address] 28755 -5655 13 Aug, 2015 Low back pain M54.5 and Other chronic pain G89.29 [facility] [id number] [place] [address] 76102- 9343 10 Aug, 2015 Back pain M54.9 [facility] [id number] [place] [address] 34382- 6251 July, Back pain M54.9 [facility] [address] 95656- 0411 Jun, Back pain M54.9 [facility] [id number] [place] [address] 57952- 5545 May, Back pain M54.9 [facility] [id number] [place] [address] 14980- 8590 Apr, Back pain M54.9 [facility] [id number] [place] [address] 60651- 7068 Mar, Back pain M54.9 [facility] [id number] [place] [address] 82169- 9166 Feb, Prostatitis N41.9 ; Arthritis M19.90 and Hypertension I10 [facility] [id number] [place] [address] 39486- 0517 Feb, [facility] [id number] [place] [address] 96696- 3170 Jan, [facility] [id number] [place] [address] 35879- 6776 Dec, Encounter for immunization Z23 [facility] [address] 35608- 8492 Dec, [facility] [id number] [place] [address] 21378- 2604 Dec, Eye pain H57.10 [facility] [id number] [place] [address] 05446- 2069 Dec, Contusion of left leg S80.12XA and Right shoulder injury S49.91XA [facility] [id number] [place] [address] 362320- 2675 Dec, Cellulitis L03.90 ; Back pain M54.9 ; Urinary incontinence R32 and Need for ciussxrvtf-itnohyp-vzspvuqqg (Tdap) vaccine Z23 [facility] [id number] [place] [address] 117261- 4827 Nov, Need for prophylactic vaccination with tetanus-diphtheria ( TD) V06.5 [facility] [id number] [place] [address] 889127- 6376 Nov, [facility] [id number] [place] [address] 40519- 3306 Oct, [facility] [id number] [place] [address] 36875- 0326 Sep, [facility] [id number] [place] [address] [id number]- 9473 Sep, [facility] [id number] [place] [address] 539871- 6912 Aug, [facility] [id number] [place] [address] [phone] 8286 July, [facility] [id number] 7466 July, [facility] [id number] [place] [address] [id number]- 5673 Jun, [facility] [id number] 8083 Jun, [facility] [id number] [place] [address] 87049- 0136 May, [facility] [id number] [address]- 0176 May, [facility] [id number] [place] [address]- 5751 10 Apr, 2014 [facility] [address] [id number] [place] [address]- 4421 Apr, [facility] [place] [facility] [address] [id number] [place] [address]- 0950 Mar, [facility] [place] [facility] [address] [id number] [place] [address]- 0456 Mar, [facility] [place] [facility] [address] [id number] [place] [address]- 4988 Mar, [facility] [place] [facility] [address] [id number] [place] [address]- 7111 Mar, [facility] [place] [facility] [address] [id number] [place] [address]- 4940 Mar, [facility] [place] [facility] [address] [id number] [place] [address]- 4264 Mar, [facility] [address] [id number] [place] [address]- 8434 Mar, [facility] [place] [facility] [address] [id number] [place] [address]- 7147 Mar, [facility] [place] [facility] [address] [id number] [place] [address]- 2794 Mar, [facility] [place] [facility] [address] [id number] [place] [address]- 0162 Mar, [facility] [place] [facility] [address] [id number] [place] [address]- 1536 Mar, [facility] [place] [facility] [address] [id number] [place] [address]- 9558 Mar, [facility] [place] [facility] [address] [id number] [place] [address]- 7616 Mar, [facility] [place] [facility] [address] [id number] [place] [address]- 8826 Mar, [facility] [place] [facility] [address] [id number] [place] [address]- 2024 Feb, [facility] [place] [facility] [address] [id number] [place] [address]- 9337 Feb, [facility] [place] [facility] [address] [id number] [place] [address]- 9755 Feb, [facility] [place] [facility] [address] [id number] [place] [address]- 2174 Feb, [facility] [place] [facility] [address] [id number] [place] [address]- 0840 Feb, [facility] [place] [facility] [address] [id number] [place] [address]- 3318 Feb, [facility] [place] [facility] [address] [id number] [place] [address]- 4681 Jan, [facility] [place] [facility] [address] [id number] [place] [address]- 2148 Jan, [facility] [place] [facility] [address] [id number] [place] [address]- 7095 Dec, [facility] [place] [facility] [address] [id number] [place] [address]- 0054 Dec, [facility] [place] [facility] [address] [id number] [place] [address]- 4542 Dec, [facility] [place] [facility] [address] [id number] [address]- 4099 Dec, [facility] [place] [facility] [address] [id number] [place] [address]- 0937 Dec, [facility] [place] [facility] [address] [id number] [place] [address]- 2434 Dec, [facility] [place] [facility] [address] [id number] [place] [address]- 9233 Nov, [facility] [place] [facility] [address] [id number] [place] [address]- 1096 Nov, [facility] [place] [facility] [address] [id number] [place] [address]- 7231 Oct, [facility] [place] [facility] [address] [id number] [place] [address]- 9396 Oct, [facility] [place] [facility] [address] [id number] [place] [address]- 0488 Sep, [facility] [place] [facility] [address] [id number] [place] [address]- 1058 Sep, [facility] [place] [facility] [address] [id number] [place] [address]- 1976 Sep, [facility] [place] [facility] [address] [id number] [place] [address]- 6758 Sep, [facility] [place] [facility] [address] [id number] [place] [address]- 7863 July, [facility] [place] [facility] [address] [id number] [place] [address]- 9881 July, [facility] [place] [facility] [address] [id number] [place] [address]- 6775 July, [facility] [place] [facility] [address] [id number] [place] [address]- 6255 July, [facility] [place] [facility] [address] [id number] [place] [address]- 1425 Feb, [facility] [place] [facility] [address] [id number] [place] [address]- 3662 Feb, [facility] [place] [facility] [address] [id number] [place] [address]- 3971 Jan, [facility] [place] [facility] [address] [id number] [place] [address]- 1402 Jan, [facility] [place] [facility] [address] [id number] [place] [address]- 2510 Jan, [facility] [place] [facility] [address] [id number] [place] [address]- 3645 Jan, [facility] [place] [facility] [address] [id number] [place] [address]- 8510 Nov, [facility] [place] [facility] [address] [id number] [place] [address]- 6558 Aug, [facility] [place] [facility] [address] [id number] [place] [address]- 0053 July, [facility] [place] [facility] [address] [id number] [place] [address]- 4817 Jun, [facility] [place] [facility] [address] [id number] [place] [address]- 5632 Apr, [facility] [place] [facility] [address] [id number] [place] [address]- 6560 Mar, [facility] [place] [facility] [address] [id number] [place] [address]- 3802 Mar, [facility] [place] [facility] [address] [id number] [place] [address]- 6788 Jan, [facility] [place] [facility] [address] [id number] [place] [address]- 6790 Jan, [facility] [place] [facility] [address] [id number] [place] [address]- 4544 Jan, [facility] [place] [facility] [address] [id number] [place] [address]- 0042 Jan, [facility] [place] [facility] [address] [id number] [place] [address]- 9459 Dec, [facility] [place] [facility] [address] [id number] [place] [address]- 7743 Dec, [facility] [place] [facility] [address] [id number] [place] [address]- 8080 Dec, [facility] [place] [facility] [address] [id number] [address]- 9186 Dec, [facility] [place] [facility] [address] [id number] [place] [address]- 9693 Nov, [facility] [place] [facility] [address] [id number] [place] [address]- 8086 Oct, [facility] [place] [facility] [address] [id number] [place] [address]- 6716 July, [facility] [place] [facility] [address] [id number] [place] [address] 2546 Mar, [facility] [place] [facility] [address] [id number] [place] [address]- 3023 Jan, [facility] [place] [facility] [address] [id number] [place] [address]- 7150 Jan, [facility] [place] [facility] [address] [id number] [place] [address]- 6743 Dec, [facility] [place] [facility] [address] [id number] [place] [address]- 0491 Dec, [facility] [place] [facility] [address] [id number] [place] [address]- 0994 Dec, [facility] [place] [facility] [address] [id number] [place] [address]- 8683 Nov, [facility] [place] [facility] [address] [id number] [address]- 4605 July, [facility] [place] [facility] [address] [id number] [address]- 6552 Jun, [facility] [place] [facility] [address] [id number] [place] [address]- 3943 May, [facility] [place] [facility] [address] [id number] [place] [address]- 5347 14 Apr, 2010 [facility] [place] [facility] [address] [id number] [place] [address]- 2546 10 Apr, 2010 [facility] [place] [facility] [address] [facility] [id number] [place] [address]- 7470 14 Mar, 2010 [facility] [address] [facility] [id number] [address]- 0704 Jan, [facility] [address] [facility] [id number] [place] [address]- 4256 Dec, [facility] [address] [facility] [id number] [address]- 5446 Jun, [facility] [address] [facility] [id number] [address]- 7023 Jun, IMMUNIZATIONS No Known Immunizations SOCIAL HISTORY Never Assessed REASON FOR VISIT incontinence KPage aura , rash between legs o0whoav Palmer olvera, hernia in stomach getting worse and hurting groin Palmer OLVERA , both legs swollen from hip to feet KPamookie OLVERA PLAN OF CARE Activity Details Follow Up Will call after lab Reason: Pending Test CMP VITAL SIGNS Height 66 in 2018-01-08 Weight 198 lbs 2018-01-08 Temperature 98.2 degrees Fahrenheit 2018-01-08 Heart Rate 62 bpm 2018-01-08 Respiratory Rate 20 2018-01-08 BMI 31.95 kg/m2 2018-01-08 Blood pressure systolic 140 mmHg 2018-01-08 Blood pressure diastolic 86 mmHg 2018-01-08 MEDICATIONS Medication Instructions Dosage Frequency Start Date End Date Duration Status Flomax 0.4 MG Orally Once a day 1 capsule 24h Active Proscar 5 mg Orally Once a day 1 tablet 24h 30 Jan, 2017 30 day(s) Active Lomotil 2.5-0.025 MG Orally 2 times a day 1 tablet as needed 12h 21 Aug, 2017 Active Hydrocodone-Acetaminophen 5-325 MG Orally 3 times a day 1 tablet 8h 11 Dec 28 days Active RESULTS No Results PROCEDURES Procedure Date Ordered Result Body Site LAB NOT BILLED BY [facility] Jan 08, 2018 VENCHALO, ROUTINE* Jan 08, 2018 [facility] VISIT ESTABLISHED PATIENT Jan 08, 2018 INSTRUCTIONS MEDICATIONS ADMINISTERED No Known Medications MEDICAL (GENERAL) HISTORY Type Description Date Medical History prostatism Medical History chronic pain Medical History hypertension Surgical History No Surgical history information
--- OUTSIDE RECORDS SUMMARY | 2018-01-29 17:41 | XMS REPORT | Continuity of Care Document ---
Author Author [facility] Address Unknown Phone Unavailable Allergies [...] 465.9 Upper Respiratory Infection 08/09/2008 MISA DPMark, EUGENIA 465.9 Upper Respiratory Infection 08/09/2008 IMSA HATHAWAY, EUGENIA 465.9 Upper Respiratory Infection 08/09/2008 RONAL CAMARGO MD 465.9 Upper Respiratory Infection 08/09/2008 RONAL CAMARGO MD 465.9 Upper Respiratory Infection 08/09/2008 EUGENE SORENSEN DDS 465.9 Upper Respiratory Infection 08/09/2008 RONAL CAMARGO MD 465.9 Upper Respiratory Infection 08/09/2008 JORGE DENTAL PRACTITIONER, ANA ROSA R 465.9 Upper Respiratory Infection [...] Severe W/o Psychotic Behavior 11/01/2008 MISA DPM, EUGENIA 296.33 Mo 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 11/01/2008 MISA DPM, EUGENIA 296.33 Mo 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 11/01/2008 RONAL CAMARGO MD 296.33 Mo 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 11/01/2008 RONAL CAMARGO MD 296.33 Mo 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 11/01/2008 FRANCHESCA WILLIS, EUGENE Paz 296.33 Mo 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 11/01/2008 RONAL CAMARGO MD 296.33 Mo 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 11/01/2008 JORGE DENTAL PRACTITIONER, ANA ROSA R 296.33 Mo Depressive Recurrent [...] Arthropathy, Unspecified, Site Unspecified 03/30/2009 MISA DPM, EUGENIA 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, Unspecified, Site Unspecified 03/30/2009 MISA DPM, EUGENIA 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, Unspecified, Site Unspecified 03/30/2009 RAMAN FLOYD, RONAL 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, Unspecified, Site Unspecified 03/30/2009 RAMAN FLOYD, RONAL 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, Unspecified, Site Unspecified 03/30/2009 FRANCHESCA WILLIS, EUGENE Paz 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, Unspecified, Site Unspecified 03/30/2009 RAMAN FLOYD, RONAL 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, Unspecified, Site Unspecified 03/30/2009 JORGE DENTAL PRACTITIONER, ANA ROSA R 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, Unspecified, Site [...] Of Lower Limb, Unspecified 06/21/2009 MISA DPM, EUGENIA 401.1 HYPERTENSION, BENIGN ESSENTIAL 06/21/2009 MISA DPM, EUGENIA 707.10 Ulcer Of Lower Limb, Unspecified 06/21/2009 MISA DPM, EUGENIA 401.1 HYPERTENSION, BENIGN ESSENTIAL 06/21/2009 MISA DPM, EUGENIA 707.10 Ulcer Of Lower Limb, Unspecified 06/21/2009 [...] HYPERTENSION, BENIGN ESSENTIAL 06/21/2009 FRANCHESCA WILLIS, EUGENE Pza 707.10 Ulcer Of Lower Limb, Unspecified 07/03/2009 RONAL CAMARGO MD 724.3 Sciatica 07/03/2009 RONAL CAMARGO MD 724.3 Sciatica 07/03/2009 724.3 Sciatica 07/03/2009 724.3 Sciatica 07/03/2009 724.3 Sciatica 07/03/2009 BG NAIR DO K 724.3 Sciatica 07/03/2009 RAMAN FLOYD, RONAL 724.3 Sciatica 07/03/2009 RAMAN FLOYD, RONAL 724.3 Sciatica 07/03/2009 RAMAN FLOYD, RONAL 724.3 Sciatica 07/03/2009 MISA DPM, EUGENIA 724.3 Sciatica 07/03/2009 MISA DPMark, EUGENIA 724.3 Sciatica 07/03/2009 RAMAN FLOYD, RONAL 724.3 [...] FLOYD, RONAL 703.8 Onychocryptosis 07/06/2009 MISA DPM, EUGENIA 110.1 Onychomycosis 07/06/2009 MISA DPM, EUGENIA 356.9 Neuropathy 07/06/2009 MISA DPM, EUGENIA 703.8 Onychocryptosis 07/06/2009 MISA DPM, EUGENIA 110.1 Onychomycosis 07/06/2009 MISA DPM, EUGENIA 356.9 Neuropathy 07/06/2009 MISA DPM, EUGENIA 703.8 Onychocryptosis 07/06/2009 RAMAN FLOYD, RONAL 110.1 [...] 07/06/2009 RAMAN FLOYD, RONAL 110.1 Onychomycosis 07/06/2009 RAAMN FLOYD, RONAL 356.9 Neuropathy 07/06/2009 RAMAN FLOYD, RONAL 703.8 Onychocryptosis 07/06/2009 JORGE DENTAL PRACTITIONER, ANA ROSA R 110.1 Onychomycosis 07/06/2009 JORGE DENTAL PRACTITIONER, ANA ROSA R 356.9 Neuropathy 07/06/2009 JORGE DENTAL PRACTITIONER, ANA ROSA R 703.8 Onychocryptosis 07/06/2009 RAMAN [...] FLOYD, RONAL 477.9 Rhinitis 09/28/2009 MISA DPM, EUGENIA 477.9 Rhinitis 09/28/2009 MISA DPM, EUGENIA 477.9 Rhinitis 09/28/2009 RAMAN FLOYD, RONAL 477.9 [...] DO, BG K V76.44 Prostate Screening 04/05/2010 ORNAL CAMARGO MD 272.4 HYPERLIPIDEMIA 04/05/2010 RONAL CAMARGO [...] MD V76.44 Prostate Screening 04/05/2010 MISA DPM, EUGENIA 272.4 HYPERLIPIDEMIA 04/05/2010 MISA DPM, EUGENIA 311 DEPRESSIVE DISORDER NOS 04/05/2010 MISA DPM, EUGENIA V76.44 Prostate Screening 04/05/2010 MISA DPM, EUGENIA 272.4 HYPERLIPIDEMIA 04/05/2010 MISA DPM, EUGENIA 311 DEPRESSIVE DISORDER NOS 04/05/2010 MISA DPM, EUGENIA V76.44 Prostate Screening 04/05/2010 RONAL CAMARGO MD [...] DEPRESSIVE DISORDER NOS 04/05/2010 FRANCHESCA SAMSONS, EUGENE Paz V76.44 Prostate Screening 04/05/2010 RONAL CAMARGO MD 272.4 HYPERLIPIDEMIA 04/05/2010 RONAL CAMARGO MD 311 DEPRESSIVE DISORDER NOS 04/05/2010 RONAL CAMARGO MD V76.44 Prostate Screening 04/05/2010 JORGE DENTAL PRACTITIONER, ANA ROSA R 272.4 HYPERLIPIDEMIA 04/05/2010 JORGE DENTAL PRACTITIONER, ANA ROSA R 311 DEPRESSIVE DISORDER NOS 04/05/2010 JORGE DENTAL PRACTITIONER, ANA ROSA R V76.44 Prostate Screening 04/05/2010 [...] CAMARGO MD 703.0 Ingrown Toenail (infection) 07/05/2010 RONLA CAMARGO MD 703.0 Ingrown Toenail (infection) 07/05/2010 RONAL CAMARGO MD 703.0 Ingrown Toenail (infection) 07/05/2010 EUGENIA HENLEY DPM 703.0 Ingrown Toenail (infection) 07/05/2010 EUGENIA HENLEY DPM 703.0 Ingrown Toenail (infection) 07/05/2010 RONAL CAMARGO MD 703.0 Ingrown Toenail (infection) 07/05/2010 RONAL CAMARGO MD 703.0 Ingrown Toenail (infection) 07/05/2010 EUGENE SORENSEN DDS 703.0 Ingrown Toenail (infection) 07/05/2010 RONAL CAMARGO MD 703.0 Ingrown Toenail (infection) 07/05/2010 JORGE DENTAL PRACTITIONER, ANA ROSA Yates 703.0 Ingrown Toenail (infection) [...] MD 460 Acute Nasopharyngitis (common Cold) 08/08/2010 EUGENIA HENLEY DPM 460 Acute Nasopharyngitis (common Cold) 08/08/2010 EUGENIA HENLEY DPM 460 Acute Nasopharyngitis (common Cold) [...] 783.21 Loss Of Weight 08/23/2010 MISA DPM, EUGENIA 783.21 Loss Of Weight 08/23/2010 MISA DPM, EUGENIA 783.21 Loss Of Weight 08/23/2010 RONAL CAMARGO [...] MD 706.1 Other Acne 12/04/2010 MISA DPM, EUGENIA 706.1 Other Acne 12/04/2010 MISA DPM, EUGENIA 706.1 Other Acne 12/04/2010 RAMAN FLOYD, RONAL [...] DO 847.2 SPRAIN LUMBAR REGION 01/06/2011 RONAL CAAMRGO MD 847.2 SPRAIN LUMBAR REGION 01/06/2011 RONAL CAMARGO MD 847.2 SPRAIN LUMBAR REGION 01/06/2011 RONAL CAMARGO MD 847.2 SPRAIN LUMBAR REGION 01/06/2011 MISA DPM, EUGENIA 847.2 SPRAIN LUMBAR REGION 01/06/2011 MISA DPM, EUGENIA 847.2 SPRAIN LUMBAR REGION 01/06/2011 RONAL CAMARGO [...] MD 372.30 Conjunctivitis Unspecified 01/10/2011 MISA DPM, EGUENIA 372.30 Conjunctivitis Unspecified 01/10/2011 MISA DPM, EUGENIA 372.30 Conjunctivitis Unspecified 01/10/2011 RONAL CAMARGO MD 372.30 Conjunctivitis Unspecified 01/10/2011 RONAL CAMARGO MD 372.30 Conjunctivitis Unspecified 01/10/2011 FRANCHESCA WILLIS, EUGENE Paz 372.30 Conjunctivitis Unspecified 01/10/2011 RONAL CAMARGO MD 372.30 Conjunctivitis Unspecified 01/10/2011 JORGE DENTAL PRACTITIONER, ANA ROSA R 372.30 Conjunctivitis Unspecified 01/10/2011 [...] 372.14 Conjunctivitis Chronic Allergic 02/06/2011 MISA DPM, EUGENIA 372.14 Conjunctivitis Chronic Allergic 02/06/2011 MISA DPM, EUGENIA 372.14 Conjunctivitis Chronic Allergic 02/06/2011 RONAL CAMARGO [...] INFECTION 03/28/2011 465.9 UPPER RESPIRATORY INFECTION 03/28/2011 GB NAIR DO 465.9 UPPER RESPIRATORY INFECTION 03/28/2011 RONAL CAMARGO MD 465.9 UPPER RESPIRATORY INFECTION 03/28/2011 RONAL CAMARGO MD 465.9 UPPER RESPIRATORY INFECTION 03/28/2011 RONAL CAMARGO MD 465.9 UPPER RESPIRATORY INFECTION 03/28/2011 MISA DPM, EUGENIA 465.9 UPPER RESPIRATORY INFECTION 03/28/2011 MISA DPM, EUGENIA 465.9 UPPER RESPIRATORY INFECTION 03/28/2011 RONAL CAMARGO [...] AND TOE(S) WITHOUT INFECTION 08/14/2011 MISA DPM, EUGENIA 917.2 BLISTER OF FOOT AND TOE(S) WITHOUT INFECTION 08/14/2011 MISA HATHAWAY, EUGENIA 917.2 BLISTER OF FOOT AND TOE(S) WITHOUT [...] MD 724.5 BACKACHE UNSPECIFIED 10/27/2011 MISA DPM, EUGENIA 724.5 BACKACHE UNSPECIFIED 10/27/2011 MISA DPM, EUGENIA 724.5 BACKACHE UNSPECIFIED 10/27/2011 RAMAN FLOYD, RONAL [...] RONAL 239.5 PROSTATE NEOPLASM 12/25/2011 MISA DPM, EUGENIA 239.5 PROSTATE NEOPLASM 12/25/2011 MISA HATHAWAY, EUGENIA 239.5 PROSTATE NEOPLASM 12/25/2011 RAMAN FLOYD, RONAL [...] RONAL V04.81 FLU SHOT 12/20/2012 MISA DPM, EUGENIA V04.81 FLU SHOT 12/20/2012 MISA DPM, EUGENIA V04.81 FLU SHOT 12/20/2012 RAMAN FLOYD, RONAL V04.81 FLU SHOT 12/20/2012 RAMAN FLOYD, RONAL V04.81 FLU SHOT 12/20/2012 FRANCHESCA WILLIS, EUGENE Paz V04.81 FLU SHOT 12/20/2012 RAMAN FLOYD, RONAL V04.81 FLU SHOT 12/20/2012 JORGE LUCERO, ANA ROSA R V04.81 FLU SHOT 12/20/2012 RAMAN FLOYD, RONAL V04.81 FLU SHOT 12/20/2012 FRANCHESCA WILLIS, EUGENE Paz V04.81 FLU SHOT 01/01/2013 OSMIN FLOYD, ART Malone Ot 401.9 HYPERTENSION NOS 01/01/2013 OSMIN FLOYD, ART T Ot 780.2 SYNCOPE AND COLLAPSE 01/01/2013 OSMIN FLOYD, ART T Ot 873.0 OPEN WOUND OF SCALP 01/01/2013 OSMIN FLOYD, ART T Ot E000.8 OTHER EXTERNAL CAUSE STATUS 01/01/2013 ART SOLORIO MD Ot E849.0 ACCIDENT IN HOME 01/01/2013 ART SOLORIO MD Ot E884.4 FALL FROM BED 01/01/2013 OSMIN FLOYD, ART Malone Ot V06.1 [id number], COMBINED [ 03/21/2013 RONAL CAMARGO MD 466.0 ACUTE BRONCHITIS 03/21/2013 RONAL CAMARGO MD 466.0 ACUTE BRONCHITIS 03/21/2013 MISA DPMark, EUGENIA 466.0 ACUTE BRONCHITIS 03/21/2013 MISA DPMark, EUGENIA 466.0 ACUTE BRONCHITIS 03/21/2013 RONAL CAMARGO MD 466.0 ACUTE BRONCHITIS 03/21/2013 RONAL CAMARGO MD 466.0 ACUTE BRONCHITIS 03/21/2013 FRANCHESCA WILLIS, EUGENE Paz 466.0 ACUTE BRONCHITIS 03/21/2013 RONAL CAMARGO MD 466.0 ACUTE BRONCHITIS 03/21/2013 JORGE LUCERO, ANA ROSA R 466.0 ACUTE BRONCHITIS 03/21/2013 RONAL CAMARGO MD 466.0 ACUTE BRONCHITIS 03/21/2013 FRANCHESCA SAMSONS, EUGENE Paz 466.0 ACUTE BRONCHITIS 08/02/2013 RONAL CAMARGO MD 401.1 BENIGN ESSENTIAL HYPERTENSION 08/02/2013 RONAL CAMARGO MD 578.1 BLOOD IN STOOL 08/02/2013 RONAL CAMARGO MD 401.1 BENIGN ESSENTIAL HYPERTENSION 08/02/2013 RONAL CAMARGO MD 578.1 BLOOD IN STOOL 08/02/2013 MISA DPM, EUGENIA 401.1 BENIGN ESSENTIAL HYPERTENSION 08/02/2013 MISA DPM, EUGENIA 578.1 BLOOD IN STOOL 08/02/2013 MISA DPM, EUGENIA 401.1 BENIGN ESSENTIAL HYPERTENSION 08/02/2013 MISA DPM, EUGENIA 578.1 BLOOD IN STOOL 08/02/2013 RONAL CAMARGO MD 401.1 BENIGN ESSENTIAL HYPERTENSION 08/02/2013 RONAL CAMARGO MD 578.1 BLOOD IN STOOL 08/02/2013 RONAL CAMARGO MD 401.1 BENIGN ESSENTIAL HYPERTENSION 08/02/2013 RONAL CAMARGO MD 578.1 BLOOD IN STOOL 08/02/2013 FRANCHESCA WILLIS, EUGENE Paz 401.1 BENIGN ESSENTIAL HYPERTENSION 08/02/2013 FRANCHESCA WILLIS, EUGENE Paz 578.1 BLOOD IN STOOL 08/02/2013 RONAL CAMARGO MD 401.1 BENIGN ESSENTIAL HYPERTENSION 08/02/2013 RONAL CAMARGO MD 578.1 BLOOD IN STOOL 08/02/2013 ANA ROSA PATEL APRN R 401.1 BENIGN ESSENTIAL HYPERTENSION 08/02/2013 ANA ROSA PATEL APRN R 578.1 BLOOD IN STOOL 08/02/2013 RONAL CAMARGO MD 401.1 BENIGN ESSENTIAL HYPERTENSION 08/02/2013 RONAL CAMARGO MD 578.1 BLOOD IN STOOL 08/02/2013 FRANCHESCA WILLIS, EUGENE Paz 401.1 BENIGN ESSENTIAL HYPERTENSION 08/02/2013 FRANCHESCA WILLIS, EUGENE Paz 578.1 BLOOD IN STOOL 10/18/2013 RONAL CAMARGO MD 700 CORNS AND CALLOSITIES 10/18/2013 RONAL CAMARGO MD 724.2 LUMBAGO 10/18/2013 MISA DPM, EUGENIA 700 CORNS AND CALLOSITIES 10/18/2013 MISA DPM, EUGENIA 724.2 LUMBAGO 10/18/2013 MISA DPM, EUGENIA 700 CORNS AND CALLOSITIES 10/18/2013 MISA DPM, EUGENIA 724.2 LUMBAGO 10/18/2013 RAMAN FLOYD, RONAL 700 CORNS AND CALLOSITIES 10/18/2013 RAMAN FLOYD, RONAL 724.2 LUMBAGO 10/18/2013 RAMAN FLOYD, RONAL 700 CORNS AND CALLOSITIES 10/18/2013 RAMAN FLOYD, RONAL 724.2 LUMBAGO 10/18/2013 FRANCHESCA DDS, EUGENE Paz 700 CORNS AND CALLOSITIES 10/18/2013 FRANCHESCA DDS, EUGENE Paz 724.2 LUMBAGO 10/18/2013 RAMAN FLOYD, RONAL 700 CORNS AND CALLOSITIES 10/18/2013 RAMAN FLOYD, RONAL 724.2 LUMBAGO 10/18/2013 JORGE LUCERO, ANA ROSA R 700 CORNS AND CALLOSITIES 10/18/2013 JORGE LUCERO, ANA ROSA R 724.2 LUMBAGO 10/18/2013 RAMAN FLOYD, RONAL 700 CORNS AND CALLOSITIES 10/18/2013 RAMAN FLOYD, RONAL 724.2 LUMBAGO 10/18/2013 FRANCHESCA DDS, EUGENE Paz 700 CORNS AND CALLOSITIES 10/18/2013 FRANCHESCA DDS, EUGENE Paz 724.2 LUMBAGO 12/09/2013 MISA DPM, EUGENIA 110.1 ONYCHOMYCOSIS 12/09/2013 MISA DPM, EUGENIA 707.15 ULCER-FOOT/TOES 12/09/2013 MISA DPM, UEGENIA 735.0 HALLUX VALGUS (ACQUIRED) 12/09/2013 MISA DPM, EUGENIA 110.1 ONYCHOMYCOSIS 12/09/2013 MISA DPM, EUGENIA 707.15 ULCER-FOOT/TOES 12/09/2013 MISA DPM, EUGENIA 735.0 HALLUX VALGUS (ACQUIRED) 12/09/2013 RAMAN FLOYD, RONAL 110.1 ONYCHOMYCOSIS 12/09/2013 RAMAN FLOYD, RONAL 707.15 ULCER-FOOT/TOES 12/09/2013 RONAL CAMARGO MD 735.0 [...] CAMARGO MD 735.0 HALLUX VALGUS (ACQUIRED) 12/09/2013 JORGE LUCERO, ANA ROSA R 110.1 ONYCHOMYCOSIS 12/09/2013 JORGE LUCERO, ANA ROSA R 707.15 ULCER-FOOT/TOES 12/09/2013 JORGE LUCERO ANA ROSA R 735.0 HALLUX VALGUS (ACQUIRED) 12/09/2013 RONAL CAMARGO MD 110.1 ONYCHOMYCOSIS 12/09/2013 RONAL CAMARGO MD 707.15 ULCER-FOOT/TOES 12/09/2013 RONAL CAMARGO MD 735.0 HALLUX VALGUS (ACQUIRED) 12/09/2013 FRANCHESCA WILLIS, EUGENE Paz 110.1 ONYCHOMYCOSIS 12/09/2013 FRANCHESCA WILLIS, EUGENE Paz 707.15 ULCER-FOOT/TOES 12/09/2013 EUGENE SORENSEN DDS 735.0 HALLUX VALGUS (ACQUIRED) 12/30/2013 EUGENIA HENLEY DPM 735.4 HAMMER TOE (ACQUIRED) 12/30/2013 RONAL CAMARGO MD 735.4 HAMMER TOE (ACQUIRED) 12/30/2013 RONAL CAMARGO MD 735.4 HAMMER TOE (ACQUIRED) 12/30/2013 EUGENE SORENSEN DDS 735.4 HAMMER TOE (ACQUIRED) 12/30/2013 RONAL CAMARGO MD 735.4 HAMMER TOE (ACQUIRED) 12/30/2013 JORGE LUCERO ANA ROSA R 735.4 HAMMER TOE (ACQUIRED) 12/30/2013 RAMAN FLOYD, RONAL 735.4 HAMMER TOE (ACQUIRED) 12/30/2013 FRANCHESCA WILLIS, EUGENE Paz 735.4 HAMMER TOE (ACQUIRED) 12/22/2015 Ot 287.5 12/22/2015 Ot 784.7 03/23/2016 Ot 287.5 03/23/2016 Ot 784.7 04/23/2016 Ot 287.5 04/23/2016 Ot 784.7 05/21/2017 Ot 287.5 05/21/2017 Ot 784.7 07/21/2017 Ot 287.5 07/21/2017 Ot 784.7 01/13/2018 EDWARD DO, KYRIE Ot I11.0 HYPERTENSIVE HEART DISEASE WITH HEART FA 01/13/2018 EDWARD DO, KYRIE Ot I25.10 ATHSCL HEART DISEASE OF [place] CORONARY 01/13/2018 EDWARD DO, KYRIE Ot I25.5 ISCHEMIC CARDIOMYOPATHY 01/13/2018 EDWARD DO, KYRIE Ot I50.21 ACUTE SYSTOLIC (CONGESTIVE) HEART FAILUR 01/13/2018 EDWARD DO, KYRIE Ot L98.9 DISORDER OF THE SKIN AND SUBCUTANEOUS TI 01/13/2018 EDWARD DO, KYRIE Ot N42.9 DISORDER OF PROSTATE, UNSPECIFIED 01/13/2018 EDWARD DO, KYRIE Ot N50.89 OTHER SPECIFIED DISORDERS OF THE MALE GE 01/13/2018 EDWARD DO, KYRIE Ot Z72.89 OTHER PROBLEMS RELATED TO LIFESTYLE 01/13/2018 EDWARD DO, KYRIE Ot Z86.2 PRSNL HISTORY OF DIS OF THE BLD/BLD-FORM 01/13/2018 EDWARD DO, KYRIE Ot I11.0 HYPERTENSIVE HEART DISEASE WITH HEART FA 01/13/2018 EDWARD DO, KYRIE Ot I25.10 ATHSCL HEART DISEASE OF [place] CORONARY 01/13/2018 EDWARD DO, KYRIE Ot I25.5 ISCHEMIC CARDIOMYOPATHY 01/13/2018 EDWARD DO, KYRIE Ot I50.21 ACUTE SYSTOLIC (CONGESTIVE) HEART FAILUR 01/13/2018 EDWARD DO, KYRIE Ot L98.9 DISORDER OF THE SKIN AND SUBCUTANEOUS TI 01/13/2018 EDWARD DO, KYRIE Ot N42.9 DISORDER OF PROSTATE, UNSPECIFIED 01/13/2018 EDWARD DO, KYRIE Ot N50.89 OTHER SPECIFIED DISORDERS OF THE MALE GE 01/13/2018 EDWARD DO, KYRIE Ot Z72.89 OTHER PROBLEMS RELATED TO LIFESTYLE 01/13/2018 EDWARD DO, KYRIE Ot Z86.2 PRSNL HISTORY OF DIS OF THE BLD/BLD-FORM 01/14/2018 EDWARD DO, KYRIE Ot I11.0 HYPERTENSIVE HEART DISEASE WITH HEART FA 01/14/2018 EDWARD DO, KYRIE Ot I25.10 ATHSCL HEART DISEASE OF [place] CORONARY 01/14/2018 EDWARD DO, KYRIE Ot I25.5 ISCHEMIC CARDIOMYOPATHY 01/14/2018 EDWARD DO, KYRIE Ot I50.21 ACUTE SYSTOLIC (CONGESTIVE) HEART FAILUR 01/14/2018 EDWARD DO, KYRIE Ot L98.9 DISORDER OF THE SKIN AND SUBCUTANEOUS TI 01/14/2018 EDWARD DO, KYRIE Ot N42.9 DISORDER OF PROSTATE, UNSPECIFIED 01/14/2018 EDWARD DO, KYRIE Ot N50.89 OTHER SPECIFIED DISORDERS OF THE MALE GE 01/14/2018 EDWARD DO, KYRIE Ot Z72.89 OTHER PROBLEMS RELATED TO LIFESTYLE 01/14/2018 EDWARD DO, KYRIE Ot Z86.2 PRSNL HISTORY OF DIS OF THE BLD/BLD-FORM 01/15/2018 EDWARD DO, KYRIE Ot I11.0 HYPERTENSIVE HEART DISEASE WITH HEART FA 01/15/2018 EDWARD DO, KYRIE Ot I25.10 ATHSCL HEART DISEASE OF [place] CORONARY 01/15/2018 EDWARD DO, KYRIE Ot I25.5 ISCHEMIC CARDIOMYOPATHY 01/15/2018 EDWARD DO, KYRIE Ot I50.21 ACUTE SYSTOLIC (CONGESTIVE) HEART FAILUR 01/15/2018 EDWARD DO, KYRIE Ot L98.9 DISORDER OF THE SKIN AND SUBCUTANEOUS TI 01/15/2018 EDWARD DO, KYRIE Ot N42.9 DISORDER OF PROSTATE, UNSPECIFIED 01/15/2018 EDWARD DO, KYRIE Ot N50.89 OTHER SPECIFIED DISORDERS OF THE MALE GE 01/15/2018 EDWARD DO, KYRIE Ot Z72.89 OTHER PROBLEMS RELATED TO LIFESTYLE 01/15/2018 EDWARD DO, KYRIE Ot Z86.2 PRSNL HISTORY OF DIS OF THE BLD/BLD-FORM 01/15/2018 EDWARD DO, KYRIE Ot I11.0 HYPERTENSIVE HEART DISEASE WITH HEART FA 01/15/2018 EDWARD DO, KYRIE Ot I25.10 ATHSCL HEART DISEASE OF [place] CORONARY 01/15/2018 CHEYANNE CLEMENT, KYRIE Ot I25.5 ISCHEMIC CARDIOMYOPATHY 01/15/2018 CHEYANNE CLEMENT, KYRIE Ot I50.21 ACUTE SYSTOLIC (CONGESTIVE) HEART FAILUR 01/15/2018 CHEYANNE CLEMENT KYRIE Ot L98.9 DISORDER OF THE SKIN AND SUBCUTANEOUS TI 01/15/2018 CHEYANNE CLEMENT KYRIE Ot N42.9 DISORDER OF PROSTATE, UNSPECIFIED 01/15/2018 CHEYANNE CLEMENT KYRIE Ot N50.89 OTHER SPECIFIED DISORDERS OF THE MALE GE 01/15/2018 CHEYANNE CLEMENT KYRIE Ot Z72.89 OTHER PROBLEMS RELATED TO LIFESTYLE 01/15/2018 CHEYANNE CLEMENT KYRIE Ot Z86.2 PRSNL HISTORY OF DIS OF THE BLD/BLD-FORM 01/15/2018 CHEYANNE CLEMENT KYRIE Ot D61.9 APLASTIC ANEMIA, UNSPECIFIED 01/15/2018 CHEYANNE CLEMENT KYRIE Ot E66.9 OBESITY, UNSPECIFIED 01/15/2018 CHEYANNE CLEMENT KYRIE Ot H91.13 PRESBYCUSIS, BILATERAL 01/15/2018 CHEYANNE CLEMENT KYRIE Ot I11.0 HYPERTENSIVE HEART DISEASE WITH HEART FA 01/15/2018 CHEYANNE CLEMENT KYRIE Ot I13.0 HYP HRT CHR KDNY DIS W HRT FAIL AND ST 01/15/2018 CHEYANNE CLEMENT KYRIE Ot I25.10 ATHSCL HEART DISEASE OF [place] CORONARY 01/15/2018 CHEYANNE CLEMENT KYRIE Ot I25.5 ISCHEMIC CARDIOMYOPATHY 01/15/2018 CHEYANNE CLEMENT KYRIE Ot I42.9 CARDIOMYOPATHY, UNSPECIFIED 01/15/2018 CHEYANNE CLEMENT KYRIE Ot I50.21 ACUTE SYSTOLIC (CONGESTIVE) HEART FAILUR 01/15/2018 CHEYANNE CLEMENT KYRIE Ot L98.9 DISORDER OF THE SKIN AND SUBCUTANEOUS TI 01/15/2018 CHEYANNE CLEMENT KYRIE Ot M54.9 DORSALGIA, UNSPECIFIED 01/15/2018 CHEYANNE CLEMENT KYRIE Ot N18.9 CHRONIC KIDNEY DISEASE, UNSPECIFIED 01/15/2018 CHEYANNE CLEMENT KYRIE Ot N28.9 DISORDER OF KIDNEY AND URETER, UNSPECIFI 01/15/2018 CHEYANNE CLEMENT KYRIE Ot N42.9 DISORDER OF PROSTATE, UNSPECIFIED 01/15/2018 CHEYANNE CLEMENT KYRIE Ot N50.89 OTHER SPECIFIED DISORDERS OF THE MALE GE 01/15/2018 CHEYANNE CLEMENT KYRIE Ot R33.9 RETENTION OF URINE, UNSPECIFIED 01/15/2018 CHEYANNE CLEMENTKYRIE Ot Z23 ENCOUNTER FOR IMMUNIZATION 01/15/2018 CHEYANNE CLEMENT KYRIE Ot Z68.27 BODY MASS INDEX (BMI) 27.0-27.9, ADULT 01/15/2018 CHEYANNE CLEMENTKYRIE Ot Z72.89 OTHER PROBLEMS RELATED TO LIFESTYLE 01/15/2018 CHEYANNE CLEMENTKYRIE Ot Z86.2 PRSNL HISTORY OF DIS OF THE BLD/BLD-FORM 01/25/2018 DEBBIE FUENTES APRN Ot G47.10 HYPERSOMNIA, UNSPECIFIED 01/28/2018 DEBBIE FUENTES APRN Ot G47.10 HYPERSOMNIA, UNSPECIFIED 01/28/2018 DEBBIE FUENTES APRN Ot G47.10 HYPERSOMNIA, UNSPECIFIED Procedures Code Description [place] [address] ROUTINE VENIPUNCTURE 04/27/2012 01262 CMP 04/27/2012 [id number] GFR CALC (RESULT ONLY) 04/27/2012 G0008 FLU ADMINISTRATION ( MEDICARE ONLY) 12/20/2012 10525 ROUTINE VENIPUNCTURE 08/02/2013 [id number] GFR CALC (RESULT ONLY) 08/02/2013 87146 CMP 08/02/2013 95236 CBC 08/02/2013 [id number] ROUTINE VENIPUNCTURE 10/18/2013 Podiatry Eugenia Henley 10/18/2013 [id number] GFR CALC (RESULT ONLY) 10/18/2013 56966 BMP 10/18/2013 58780 DEBRIDE NAIL >6 12/09/2013 19524 ROUTINE VENIPUNCTURE 04/12/2014 57062 CBC 04/12/2014 00745 ROUTINE VENIPUNCTURE 07/10/2014 31194 PSA TOTAL 07/10/2014 [id number] MEASURE OF CARDIAC SAMPL PRESSURE, L H 01/13/2018 [id number] MEASUREMENT OF ARTERIAL PRESSURE, CAMP 01/13/2018 [id number] FLUOROSCOPY OF MULT COR ART USING L OSM 01/13/2018 [id number] FLUOROSCOPY OF LEFT HEART USING LOW OSMO 01/13/2018 Results Test Result Range Comp. Metabolic Panel [...] 7-25 CREATININE 1.15 mg/dL 0.70-1.18 eGFR NON-AFR. NIUEAN 62 mL/min/1.73m2 > OR=60 eGFR 72 mL/min/1.73m2 [...] CALCIUM CORRECTED 9.4 mg/dL 8.5-10.1 Magnesium - 10/23/18 12:25 Magnesium 2.0 mg/dL 1.8-2.4 Serum or plasma troponin i.cardiac measurement (mass/volume) - 01/12/18 12:25 Serum or plasma troponin i.cardiac measurement (mass/volume) < ng/ mL <0.30 Myoglobin, serum - 01/12/18 12:25 Myoglobin, serum 82.4 ng/mL 10.0-92.0 Serum or plasma lithium measurement (moles/volume) - 01/12/18 12:25 BNP level 3634.8 pg/mL <100.0 Methicillin resistant Staphylococcus aureus (MRSA) screening culture - 17:10 Methicillin resistant Staphylococcus aureus (MRSA) screening culture NEG NRG Complete blood count (CBC) with automated white blood cell (WBC) differential - 01/13/18 04:57 Blood leukocytes automated count (number/volume) 6.9 10*3/uL 4.3-11.0 Blood erythrocytes automated count (number/volume) 5.21 10*6/uL 4.35-5.85 Venous blood hemoglobin measurement (mass/volume) 15.6 g/dL 13.3-17.7 Blood hematocrit (volume fraction) 45 % 40-54 Automated erythrocyte mean corpuscular volume 87 [foz_us] 80-99 Automated erythrocyte mean corpuscular hemoglobin (mass per erythrocyte) 30 pg 25-34 Automated erythrocyte mean corpuscular hemoglobin concentration measurement ( mass/volume) 35 g/dL 32-36 Automated erythrocyte distribution width ratio 15.0 % 10.0-14.5 Automated blood platelet count (count/volume) 172 10*3/uL 130-400 Automated blood platelet mean volume measurement 9.8 [foz_us] 7.4-10.4 Automated blood neutrophils/100 leukocytes 77 % 42-75 Automated blood lymphocytes/100 leukocytes 7 % 12-44 Blood monocytes/100 leukocytes 15 % 0-12 Automated blood eosinophils/100 leukocytes 1 % 0-10 Automated blood basophils/100 leukocytes 0 % 0-10 Blood neutrophils automated count (number/volume) 5.3 10*3 1.8-7.8 Blood lymphocytes automated count (number/volume) 0.5 10*3 1.0-4.0 Blood monocytes automated count (number/volume) 1.0 10*3 0.0-1.0 Automated eosinophil count 0.1 10*3/uL 0.0-0.3 Automated blood basophil count (count/volume) 0.0 10*3/uL 0.0-0.1 Comprehensive metabolic panel - 01/13/18 04:57 Serum or plasma sodium measurement (moles/volume) 135 mmol/L 135-145 Serum or plasma potassium measurement (moles/volume) 3.9 mmol/L 3.6-5.0 Serum or plasma chloride measurement (moles/volume) 97 mmol/L 98-107 Carbon dioxide 24 mmol/L 21-32 Serum or plasma anion gap determination (moles/volume) 14 mmol/L 5-14 Serum or plasma urea nitrogen measurement (mass/volume) 24 mg/dL 7-18 Serum or plasma creatinine measurement (mass/volume) 1.27 mg/dL 0.60-1.30 Serum or plasma urea nitrogen/creatinine mass ratio 19 NRG Serum or plasma creatinine measurement with calculation of estimated glomerular filtration rate 55 NRG Serum or plasma glucose measurement (mass/volume) 100 mg/dL 70-105 Serum or plasma calcium measurement (mass/volume) 8.9 mg/dL 8.5-10.1 Serum or plasma total bilirubin measurement (mass/volume) 1.7 mg/dL 0.1-1.0 Serum or plasma alkaline phosphatase measurement (enzymatic activity/volume) 89 U/L 40-136 Serum or plasma aspartate aminotransferase measurement (enzymatic activity/ volume) 18 U/L 5-34 Serum or plasma alanine aminotransferase measurement (enzymatic activity/volume ) 18 U/L 0-55 Serum or plasma protein measurement (mass/volume) 5.4 g/dL 6.4-8.2 Serum or plasma albumin measurement (mass/volume) 3.3 g/dL 3.2-4.5 CALCIUM CORRECTED 9.5 mg/dL 8.5-10.1 Magnesium - 01/13/18 04:57 Magnesium 1.8 mg/dL 1.8-2.4 Serum or plasma troponin i.cardiac measurement (mass/volume) - 01/13/18 04:57 Serum or plasma troponin i.cardiac measurement (mass/volume) < ng/ mL <0.30 Lipid 1996 panel - 01/13/18 04:57 Serum or plasma triglyceride measurement (mass/volume) 61 mg/dL <150 Serum or plasma cholesterol measurement (mass/volume) 116 mg/dL < 200 Serum or plasma cholesterol in HDL measurement (mass/volume) 46 mg/ dL 40-60 Cholesterol in LDL [mass/volume] in serum or plasma by direct assay 58 mg/dL 1-129 Serum or plasma cholesterol in VLDL measurement (mass/volume) 12 mg/ dL 5-40 THYROID STIMULATING HORMONE - 01/13/18 04:57 THYROID STIMULATING HORMONE 0.63 u[iU]/mL 0.35-4.94 Complete blood count (CBC) with automated white blood cell (WBC) differential - 01/14/18 05:40 Blood leukocytes automated count (number/volume) 6.3 10*3/uL 4.3-11.0 Blood erythrocytes automated count (number/volume) 5.25 10*6/uL 4.35-5.85 Venous blood hemoglobin measurement (mass/volume) 15.4 g/dL 13.3-17.7 Blood hematocrit (volume fraction) 46 % 40-54 Automated erythrocyte mean corpuscular volume 87 [foz_us] 80-99 Automated erythrocyte mean corpuscular hemoglobin (mass per erythrocyte) 29 pg 25-34 Automated erythrocyte mean corpuscular hemoglobin concentration measurement ( mass/volume) 34 g/dL 32-36 Automated erythrocyte distribution width ratio 14.6 % 10.0-14.5 Automated blood platelet count (count/volume) 150 10*3/uL 130-400 Automated blood platelet mean volume measurement 9.8 [foz_us] 7.4-10.4 Automated blood neutrophils/100 leukocytes 75 % 42-75 Automated blood lymphocytes/100 leukocytes 9 % 12-44 Blood monocytes/100 leukocytes 16 % 0-12 Automated blood eosinophils/100 leukocytes 1 % 0-10 Automated blood basophils/100 leukocytes 0 % 0-10 Blood neutrophils automated count (number/volume) 4.7 10*3 1.8-7.8 Blood lymphocytes automated count (number/volume) 0.5 10*3 1.0-4.0 Blood monocytes automated count (number/volume) 1.0 10*3 0.0-1.0 Automated eosinophil count 0.0 10*3/uL 0.0-0.3 Automated blood basophil count (count/volume) 0.0 10*3/uL 0.0-0.1 Comprehensive metabolic panel - 01/14/18 05:40 Serum or plasma sodium measurement (moles/volume) 134 mmol/L 135-145 Serum or plasma potassium measurement (moles/volume) 3.6 mmol/L 3.6-5.0 Serum or plasma chloride measurement (moles/volume) 94 mmol/L 98-107 Carbon dioxide 27 mmol/L 21-32 Serum or plasma anion gap determination (moles/volume) 13 mmol/L 5-14 Serum or plasma urea nitrogen measurement (mass/volume) 20 mg/dL 7-18 Serum or plasma creatinine measurement (mass/volume) 1.39 mg/dL 0.60-1.30 Serum or plasma urea nitrogen/creatinine mass ratio 14 NRG Serum or plasma creatinine measurement with calculation of estimated glomerular filtration rate 50 NRG Serum or plasma glucose measurement (mass/volume) 99 mg/dL 70-105 Serum or plasma calcium measurement (mass/volume) 8.5 mg/dL 8.5-10.1 Serum or plasma total bilirubin measurement (mass/volume) 1.7 mg/dL 0.1-1.0 Serum or plasma alkaline phosphatase measurement (enzymatic activity/volume) 82 U/L 40-136 Serum or plasma aspartate aminotransferase measurement (enzymatic activity/ volume) 15 U/L 5-34 Serum or plasma alanine aminotransferase measurement (enzymatic activity/volume ) 15 U/L 0-55 Serum or plasma protein measurement (mass/volume) 5.1 g/dL 6.4-8.2 Serum or plasma albumin measurement (mass/volume) 3.1 g/dL 3.2-4.5 CALCIUM CORRECTED 9.2 mg/dL 8.5-10.1 Complete blood count (CBC) with automated white blood cell (WBC) differential - 01/15/18 05:36 Blood leukocytes automated count (number/volume) 5.2 10*3/uL 4.3-11.0 Blood erythrocytes automated count (number/volume) 5.26 10*6/uL 4.35-5.85 Venous blood hemoglobin measurement (mass/volume) 15.6 g/dL 13.3-17.7 Blood hematocrit (volume fraction) 46 % 40-54 Automated erythrocyte mean corpuscular volume 87 [foz_us] 80-99 Automated erythrocyte mean corpuscular hemoglobin (mass per erythrocyte) 30 pg 25-34 Automated erythrocyte mean corpuscular hemoglobin concentration measurement ( mass/volume) 34 g/dL 32-36 Automated erythrocyte distribution width ratio 14.8 % 10.0-14.5 Automated blood platelet count (count/volume) 165 10*3/uL 130-400 Automated blood platelet mean volume measurement 9.4 [foz_us] 7.4-10.4 Automated blood neutrophils/100 leukocytes 74 % 42-75 Automated blood lymphocytes/100 leukocytes 10 % 12-44 Blood monocytes/100 leukocytes 16 % 0-12 Automated blood eosinophils/100 leukocytes 1 % 0-10 Automated blood basophils/100 leukocytes 0 % 0-10 Blood neutrophils automated count (number/volume) 3.8 10*3 1.8-7.8 Blood lymphocytes automated count (number/volume) 0.5 10*3 1.0-4.0 Blood monocytes automated count (number/volume) 0.8 10*3 0.0-1.0 Automated eosinophil count 0.1 10*3/uL 0.0-0.3 Automated blood basophil count (count/volume) 0.0 10*3/uL 0.0-0.1 Comprehensive metabolic panel - 01/15/18 05:36 Serum or plasma sodium measurement (moles/volume) 134 mmol/L 135-145 Serum or plasma potassium measurement (moles/volume) 3.2 mmol/L 3.6-5.0 Serum or plasma chloride measurement (moles/volume) 96 mmol/L 98-107 Carbon dioxide 27 mmol/L 21-32 Serum or plasma anion gap determination (moles/volume) 11 mmol/L 5-14 Serum or plasma urea nitrogen measurement (mass/volume) 20 mg/dL 7-18 Serum or plasma creatinine measurement (mass/volume) 1.13 mg/dL 0.60-1.30 Serum or plasma urea nitrogen/creatinine mass ratio 18 NRG Serum or plasma creatinine measurement with calculation of estimated glomerular filtration rate > NRG Serum or plasma glucose measurement (mass/volume) 97 mg/dL 70-105 Serum or plasma calcium measurement (mass/volume) 8.5 mg/dL 8.5-10.1 Serum or plasma total bilirubin measurement (mass/volume) 1.2 mg/dL 0.1-1.0 Serum or plasma alkaline phosphatase measurement (enzymatic activity/volume) 81 U/L 40-136 Serum or plasma aspartate aminotransferase measurement (enzymatic activity/ volume) 19 U/L 5-34 Serum or plasma alanine aminotransferase measurement (enzymatic activity/volume ) 16 U/L 0-55 Serum or plasma protein measurement (mass/volume) 4.4 g/dL 6.4-8.2 Serum or plasma albumin measurement (mass/volume) 3.1 g/dL 3.2-4.5 CALCIUM CORRECTED 9.2 mg/dL 8.5-10.1 Magnesium - 01/15/18 05:36 Magnesium 1.7 mg/dL 1.8-2.4 Serum or plasma lithium measurement (moles/volume) - 01/15/18 05:36 BNP level 2645.9 pg/mL <100.0 Arterial blood gas measurement - 01/15/18 10:09 Blood pCO2 41 mm[Hg] 35-45 Blood pO2 73 mm[Hg] 79-93 Arterial blood bicarbonate measurement (moles/volume) 32 mmol/L 23-27 Arterial blood base excess by calculation 7.8 mmol/L -2.5 -2.5 Arterial blood oxygen saturation measurement 96 % 94-100 * Inhaled oxygen flow rate RA NRG Arterial blood pH measurement with patient temperature correction 7.49 7.37-7.43 Arterial blood carbon dioxide, total measurement (moles/volume) 32.9 mmol/L 21.0-31.0 Body site L RAD NRG Assessment of wrist artery patency prior to arterial puncture YES- POS NRG Setting of ventilation mode NO NRG Measurement of body temperature 97.7 NRG [facility] - 01/21/18 10:30 GLUCOSE 74 mg/dL 65-99 UREA NITROGEN (BUN) 36 mg/dL 7-25 CREATININE 2.17 mg/dL 0.70-1.18 eGFR NON-AFR. NIUEAN 29 mL/min/1.73m2 > OR=60 eGFR 33 mL/min/1.73m2 > OR=60 BUN/CREATININE RATIO 17 (calc) 6-22 SODIUM 134 mmol/L 135-146 POTASSIUM 4.8 mmol/L 3.5-5.3 CHLORIDE 95 mmol/L 98-110 CARBON DIOXIDE 33 mmol/L 20-32 CALCIUM 9.3 mg/dL 8.6-10.3 Encounters ACCT No. Visit Date/Time Discharge Status Pt. Type Provider Facility Loc./Unit Complaint [id number] 07/14/2014 10:11:00 07/14/2014 23:59:59 [facility] Outpatient EUGENE SORENSEN DDS [id number] 07/10/2014 13:10:00 07/10/2014 23:59:59 [facility] Outpatient RONAL CAMARGO MD [id number] 05/02/2014 12:53:00 05/02/2014 23:59:59 CLS Outpatient RONAL CAMARGO MD [id number] 04/21/2014 13:42:00 04/21/2014 23:59:59 CLS Outpatient EUGENE SORENSEN DDS [id number] 04/13/2014 11:22:00 04/13/2014 23:59:59 CLS Outpatient ANA ROSA PATEL APRN [id number] 04/12/2014 13:28:00 04/12/2014 23:59:59 CLS Outpatient RONAL CAMARGO MD [id number] 03/02/2014 14:21:00 03/02/2014 23:59:59 CLS Outpatient RONAL CAMARGO MD [id number] 12/30/2013 08:17:00 12/30/2013 23:59:59 CLS Outpatient EUGENIA HENLEY DPM [id number] 12/09/2013 07:37:00 12/09/2013 23:59:59 CLS Outpatient EUGENIA HENLEY DPM [id number] 10/18/2013 10:46:00 10/18/2013 23:59:59 CLS Outpatient RONAL CAMARGO MD [id number] 08/02/2013 10:39:00 08/02/2013 23:59:59 CLS Outpatient RONAL CAMARGO MD [id number] 02/03/2013 10:39:00 02/03/2013 23:59:59 CLS Outpatient RONAL CAMARGO MD [id number] 12/20/2012 13:21:00 12/20/2012 23:59:59 CLS Outpatient KOREY CLEMENT BG Rama [id number] 04/27/2012 13:45:00 04/27/2012 23:59:59 CLS Outpatient [id number] 04/27/2012 13:45:00 04/27/2012 23:59:59 CLS Outpatient [id number] 12/25/2011 15:56:00 12/25/2011 23:59:59 CLS Outpatient RONAL CAMARGO MD [id number] 12/25/2011 15:56:00 12/25/2011 23:59:59 CLS Outpatient RONAL CAMARGO MD [id number] 08/19/2012 13:57:00 Document Registration [id number] 01/26/2018 16:18:00 01/26/2018 23:59:59 CLS Preadmit GARRET FLOYD, JULIA Mccabe [facility] CARD CHF [id number] 01/12/2018 13:37:00 01/15/2018 13:45:00 DIS Inpatient KYRIE EDWARD DO [facility] 4TH ACUTE HEART FAILURE; SCROTAL WOUND [id number] 01/01/2013 10:00:00 01/01/2013 13:04:00 DIS Emergency OSMIN FLOYD, ART Malone [facility] ER FALL [id number] 01/29/2018 17:23:00 ACT Emergency JOAQUÍN FLOYD, JJ Ontiveros [facility] ER HERNIA [id number] 01/28/2018 21:00:00 PEN Preadmit DEBBIE FUENTES APRN [facility] SLEEP CARDIOMYOPATHY [id number] 01/15/2018 10:06:00 Document Registration [id number] 05/28/2006 05:51:00 Document Registration [id number] 04/29/2016 09:16:00 Document Registration [id number] 07/15/2016 13:05:00 Document Registration [id number] 09/10/2017 14:00:00 09/10/2017 23:59:59 CLS [facility] [id number] 01/21/2018 09:40:00 Document Registration [id number] 09/10/2017 14:00:00 Document Registration [id number] 02/17/2017 10:00:00 Document Registration
[2018-01-29] MEDS ORDERED: fentaNYL INJECTION 100 MCG/2 ML AMP IVP ONE ×2 (19:15→21:45)
[2018-01-29 19:31] LABS: BASOPHILS % (AUTO) 0 % (0-10); EOSINOPHILS # (AUTO) 0.1 10^3/uL (0.0-0.3); EOSINOPHILS % (AUTO) 1 % (0-10); HEMATOCRIT 57 % (40-54); HEMOGLOBIN 19.5 G/DL (13.3-17.7); LYMPHOCYTES # (AUTO) 1.4 X 10^3 (1.0-4.0); LYMPHOCYTES % (AUTO) 15 % (12-44); MEAN CORPUSCULAR HEMOGLOBIN 29 PG (25-34); MEAN CORPUSCULAR HGB CONC 34 G/DL (32-36); MEAN CORPUSCULAR VOLUME 86 FL (80-99); MEAN PLATELET VOLUME 9.5 FL (7.4-10.4); MONOCYTES # (AUTO) 1.1 X 10^3 (0.0-1.0); MONOCYTES % (AUTO) 12 % (0-12); NEUTROPHILS # (AUTO) 6.9 X 10^3 (1.8-7.8); NEUTROPHILS % (AUTO) 72 % (42-75); PLATELET COUNT 196 10^3/uL (130-400); RED BLOOD COUNT 6.63 10^6/uL (4.35-5.85); RED CELL DISTRIBUTION WIDTH 15.5 % (10.0-14.5); WHITE BLOOD COUNT 9.6 10^3/uL (4.3-11.0)
[2018-01-29 19:45] LABS: ALBUMIN 4.2 GM/DL (3.2-4.5); BILIRUBIN,TOTAL 1.6 MG/DL (0.1-1.0); CALCIUM 9.7 MG/DL (8.5-10.1); CREATININE SERUM 1.61 MG/DL (0.60-1.30); POTASSIUM 4.7 MMOL/L (3.6-5.0); TOTAL PROTEIN 7.1 GM/DL (6.4-8.2)
[2018-01-29] MEDS ORDERED: NS IV 1000 ML 1,000 ML IV ONE (19:50)
--- NOTE | 2018-01-29 20:14 | Diagnostic Imaging Report ---
INDICATION: Abdominal pain, possible umbilical hernia. COMPARISON STUDY: No pertinent studies. FINDINGS: Examination demonstrates right inguinal hernia with a small bowel loop within this. Some inflammation is present. No obstruction is seen at this time. The lung bases are clear. The liver, gallbladder, spleen, pancreas, adrenal glands and kidneys appear unremarkable. There is no ascites or free air. Urinary bladder and prostate gland are normal. IMPRESSION: There is a right inguinal hernia containing a loop of small bowel with inflammation consistent with incarceration.. No dilated bowel loops are seen above this at this time. Recommend surgical consultation. Dictated by: Dictated on workstation # [id number]
--- NOTE | 2018-01-29 20:52 | ED Abdominal Pain ---
General Chief Complaint: Abdominal/GI Problems Stated Complaint: HERNIA Nursing Triage Note: THE PT IS AMBULATORY TO THE ROOM WITHOUT DIFFICULTY. NO DISTRESS IS SEEN ON ARRIVAL. LOC IS NORMAL FOR THE PT. Sepsis Screen: No Definite Risk Source of Information: Patient, Old Records Exam Limitations: No Limitations History of Present Illness Date Seen by Provider: Jan 29, 2018 Time Seen by Provider: 19:00 Initial Comments This 77-year-old gentleman presents to the emergency room with a very painful right inguinal hernia. The hernia has been there for quite some time but just started to cause severe pain this morning. He has not had a bowel movement today but reports no difficulty having bowel movements. He denies any vomiting. He is presently wearing a life vest because of nonischemic cardiomyopathy and congestive heart failure. He was admitted for cardiac issues in December. Allergies and Home Medications Allergies Coded Allergies: Leonides Known Allergies (Verified Allergy, Unknown, 05/28/06) Home Medications Furosemide 40 Mg Tablet, 40 MG PO DAILY Prescribed by: JULIA LI on 01/15/18 08 Hydrocodone/Acetaminophen 1 Each Tablet, 1 TAB PO TID PRN for PAIN-MODERATE, ( Reported) Losartan Potassium 50 Mg Tablet, 50 MG PO DAILY Prescribed by: JULIA LI on 01/15/18815 Metoprolol Succinate 25 Mg Tab.er.24h, 25 MG PO DAILY Prescribed by: JULIA LI on 01/15/18815 Potassium Chloride 20 Meq Tablet.er, 20 MEQ PO DAILY Prescribed by: JULIA LI on 01/15/18 0821 Patient Home Medication List Home Medication List Reviewed: Yes Review of Systems Review of Systems Constitutional: no symptoms reported EENTM: No Symptoms Reported Respiratory: No Symptoms Reported Cardiovascular: See HPI Gastrointestinal: See HPI Genitourinary: No Symptoms Reported Musculoskeletal: no symptoms reported Skin: no symptoms reported Psychiatric/Neurological: No Symptoms Reported Endocrine: No Symptoms Reported Past Fcdmfsj-Ajobgj-Svgebx Hx Patient Social History Recent Foreign Travel: No Contact w/Someone Who Travel: No Recent Infectious Disease Expo: No Recent Hopitalizations: Yes Physical Abuse: No Sexual Abuse: No Mistreated: No Immunizations Up To Date Tetanus Booster (TDap): More than 5yrs Seasonal Allergies Seasonal Allergies: No Past Medical History Surgeries: Yes Cardiac (cardiac angiography 2017, no interventions) Respiratory: No Cardiac: Yes Cardiomyopathy (nonischemic, life rest), Hypertension Neurological: No Reproductive Disorders: No Genitourinary: Yes (STATES HIS KIDNEYS DON'T WORK RIGHT) Prostate Problems Gastrointestinal: No (HERNIA) Musculoskeletal: No Chronic Back Pain Endocrine: No HEENT: Yes Hearing Impairment: Hard of Hearing Cancer: No Psychosocial: No Integumentary: No Blood Disorders: Yes (APLASTIC ANEMIA) Family Medical History No Pertinent Family Hx, Hypertension Physical Exam Vital Signs Vital Signs - First Documented 01/29/18 18:08 Temp 96.2 Pulse 57 Resp 18 B/P (MAP) 174/100 (124) Pulse Ox 96 Capillary Refill : Less Than 3 Seconds Height/Weight/BMI Height: 5'9.00" Weight: 170lbs. 3.0oz. [id number]; 29.9 BMI Method:Estimated General Appearance: WD/WN, mild distress HEENT: PERRL/EOMI, normal ENT inspection Neck: normal inspection Respiratory: lungs clear, normal breath sounds, no respiratory distress, no accessory muscle use Cardiovascular: regular rate, rhythm, no edema, no murmur Gastrointestinal: normal bowel sounds, soft, other (firm bulging inguinal hernia on the right) Extremities: normal inspection, no pedal edema Male: normal genitalia, inguinal tenderness (with inguinal hernia) Neurologic/Psychiatric: screening tech II-XII nml as tested, no motor/sensory deficits, alert, normal mood/affect, oriented x 3 Skin: normal color, warm/dry Progress/Results/Core Measures Results/Orders Lab Results Laboratory Tests Test 01/29/18 19:18 Range/Units White Blood Count 9.6 4.3-11.0 10^3/uL Red Blood Count 6.63 H 4.35-5.85 10^6/uL Hemoglobin 19.5 H 13.3-17.7 G/DL Hematocrit 57 H 40-54 % Mean Corpuscular Volume 86 80-99 FL Mean Corpuscular Hemoglobin 29 25-34 PG Mean Corpuscular Hemoglobin Concent 34 32-36 G/DL Red Cell Distribution Width 15.5 H 10.0-14.5 % Platelet Count 196 130-400 10^3/uL Mean Platelet Volume 9.5 7.4-10.4 FL Neutrophils (%) (Auto) 72 42-75 % Lymphocytes (%) (Auto) 15 12-44 % Monocytes (%) (Auto) 12 0-12 % Eosinophils (%) (Auto) 1 0-10 % Basophils (%) (Auto) 0 0-10 % Neutrophils # (Auto) 6.9 1.8-7.8 X 10^3 Lymphocytes # (Auto) 1.4 1.0-4.0 X 10^3 Monocytes # (Auto) 1.1 H 0.0-1.0 X 10^3 Eosinophils # (Auto) 0.1 0.0-0.3 10^3/uL Basophils # (Auto) 0.0 0.0-0.1 10^3/uL Sodium Level 134 L 135-145 MMOL/L Potassium Level 4.7 3.6-5.0 MMOL/L Chloride Level 96 L 98-107 MMOL/L Carbon Dioxide Level 29 21-32 MMOL/L Anion Gap 9 5-14 MMOL/L Blood Urea Nitrogen 35 H 7-18 MG/DL Creatinine 1.61 H 0.60-1.30 MG/DL Estimat Glomerular Filtration Rate 42 BUN/Creatinine Ratio 22 Glucose Level 104 70-105 MG/DL Calcium Level 9.7 8.5-10.1 MG/DL Corrected Calcium 9.5 8.5-10.1 MG/DL Total Bilirubin 1.6 H 0.1-1.0 MG/DL Aspartate Amino Transf (AST/SGOT) 24 5-34 U/L Alanine Aminotransferase (ALT/SGPT) 26 0-55 U/L Alkaline Phosphatase 108 40-136 U/L Total Protein 7.1 6.4-8.2 GM/DL Albumin 4.2 3.2-4.5 GM/DL My Orders Orders - ART OSLORIO MD Cbc With Automated Diff (01/29/18 19:08) Comprehensive Metabolic Panel (01/29/18 19:08) Saline Lock/Iv-Start (01/29/18 19:08) Fentanyl Injection (Sublimaze Injection (01/29/18 19:15) Ns Iv 1000 Ml (Sodium Chloride 0.9%) (01/29/18 19:50) Ct Abdomen/Pelvis Wo (01/29/18 19:52) Fentanyl Injection (Sublimaze Injection (01/29/18 21:45) Medications Given in ED Current Medications Medications Dose Ordered Sig/Anil Route Start Time Stop Time Status Last Admin Dose Admin Fentanyl Citrate 50 mcg ONCE ONCE IVP 01/29/18 19:15 01/29/18 19:16 DC 01/29/18 19:34 50 MCG Fentanyl Citrate 75 mcg ONCE ONCE IVP 01/29/18 21:45 01/29/18 21:46 DC 01/29/18 21:52 75 MCG Sodium Chloride 1,000 ml @ 0 mls/hr Q0M ONCE IV 01/29/18 19:50 01/29/18 19:51 DC 01/29/18 20:18 1,000 MLS/HR Vital Signs/I&O 01/29/18 18:08 Temp 96.2 Pulse 57 Resp 18 B/P (MAP) 174/100 (124) Pulse Ox 96 01/30/18 00:00 Intake Total 1000 ml Balance 1000 ml Blood Pressure Mean: 124 Progress Progress Note : Progress Note Pain was treated with fentanyl. CT scan was obtained, viewed by me, and report reviewed. Case was discussed with Dr. Paredes who presented to the ER to assess the patient himself. Prompt surgery was deemed necessary. Patient is being taken to the OR from the ER. Case was reviewed with Dr. Li. We reviewed the cardiac angiography report. Patient does not need any further clearance for surgery from a cardiac perspective. Diagnostic Imaging Diagonstic Imaging: CT Plain Films/CT/US/NM/MRI: abdomen, pelvis Comments CT abdomen and pelvis viewed by me and report reviewed. See report below: NAME: ROMANA BRIDGES [facility] REC#: [id number] PT STATUS: REG ER : 1940 PHYSICIAN: ART SOLORIO MD ADMIT DATE: 01/29/18/ER Signed Date of Exam:01/29/18 CT ABDOMEN/PELVIS WO INDICATION: Abdominal pain, possible umbilical hernia. COMPARISON STUDY: No pertinent studies. FINDINGS: Examination demonstrates right inguinal hernia with a small bowel loop within this. Some inflammation is present. No obstruction is seen at this time. The lung bases are clear. The liver, gallbladder, spleen, pancreas, adrenal glands and kidneys appear unremarkable. There is no ascites or free air. Urinary bladder and prostate gland are normal. IMPRESSION: There is a right inguinal hernia containing a loop of small bowel with inflammation consistent with incarceration.. No dilated bowel loops are seen above this at this time. Recommend surgical consultation. Dictated by: Dictated on workstation # [id number] Dict: 01/29/182008 Trans: 01/29/182017 [facility] [id number] Interpreted by: PAUL CAMPBELL MD Electronically signed by: PAUL CAMPBELL MD 01/29/182017 Departure Communication (Admissions) Time/Spoke to Admitting Phy: 21:45 Dr. Paredes Time/Spoke to Consulting Phy: 21:50 Dr. Li Impression Primary Impression: Incarcerated right inguinal hernia Additional Impressions: Congestive heart failure Qualified Codes: I50.9 - Heart failure, unspecified Nonischemic cardiomyopathy Acute renal failure Qualified Codes: N17.9 - Acute kidney failure, unspecified Disposition: ADMITTED INPATIENT Condition: Stable Admissions Decision to Admit Reason: Admit from ER (General) Decision to Admit/Date: Jan 29, 2018 Time/Decision to Admit Time: 21:40 Departure-Patient Inst. Referrals: [facility] (PCP/Family) Primary Care Physician ART SOLORIO MD Jan 29, 2018 20:52
--- NOTE | 2018-01-29 22:13 | History & Physicial ---
History of Present Illness History of Present Illness Reason for visit/HPI painful swelling over the right inguinal region with CT scan confirming a strangulated hernia, containing loops of bowel with edema Date of Admission 01/29/18 Date Seen by a Provider: Jan 29, 2018 Time Seen by a Provider: 21:20 I consulted on this patient on 01/29/18 22:06 Attending Physician Admitting Physician [place] Consult Allergies and Home Medications Allergies Coded Allergies: NKANo Known Allergies (Verified Allergy, Unknown, 05/28/06) Home Medications Furosemide 40 Mg Tablet, 40 MG PO DAILY Prescribed by: JULIA COMBS on 01/15/18 0816 Hydrocodone/Acetaminophen 1 Each Tablet, 1 TAB PO TID PRN for PAIN-MODERATE, ( Reported) Losartan Potassium 50 Mg Tablet, 50 MG PO DAILY Prescribed by: JULIA COMBS on 01/15/18815 Metoprolol Succinate 25 Mg Tab.er.24h, 25 MG PO DAILY Prescribed by: JULIA COMBS on 01/15/18815 Potassium Chloride 20 Meq Tablet.er, 20 MEQ PO DAILY Prescribed by: JULIA COMBS on 01/15/18 0821 Patient Home Medication List Home Medication List Reviewed: Yes Past Togzbmy-Ddlkha-Nmdgdb Hx Patient Social History Marrital Status: single Employed/Student: employed Recent Foreign Travel: No Contact w/other who traveled: No Recent Hopitalizations: Yes Recent Infectious Disease Expo: No Immunizations Up To Date Tetanus Booster (TDap): More than 5yrs Seasonal Allergies Seasonal Allergies: No Surgeries No Respiratory No Cardiovascular Yes Hypertension Neurological No Reproductive System Hx Reproductive Disorders: No Genitourinary Yes (STATES HIS KIDNEYS DON'T WORK RIGHT) Prostate Problems Gastrointestinal No (HERNIA) Musculoskeletal No Chronic Back Pain Endocrine History of Endocrine Disorders: No HEENT History of HEENT Disorders: Yes Hearing Impairment: Hard of Hearing Cancer No Psychosocial History of Psychiatric Problem: No Integumentary History of Skin or Integumenta: No Blood Transfusions History of Blood Disorders: Yes (APLASTIC ANEMIA) Family Medical History Significant Family History: No Pertinent Family Hx, Hypertension Review of Systems Constitutional: malaise EENTM: no symptoms reported Respiratory: no symptoms reported Cardiovascular: edema Gastrointestinal: see HPI Genitourinary: see HPI Musculoskeletal: back pain Skin: rash Psychiatric/Neurological: Anxiety Physical Exam Vital Signs Vital Signs - First Documented 01/29/18 18:08 Temp 96.2 Pulse 57 Resp 18 B/P (MAP) 174/100 (124) Pulse Ox 96 Capillary Refill : Less Than 3 Seconds Height, Weight, BMI Height: 5'9.00" Weight: 170lbs. 3.0oz. 77.147409uj; 29.9 BMI Method:Estimated General Appearance: Moderate Distress Neck: Normal Inspection Respiratory: Lungs Clear Cardiovascular: Regular Rate, Rhythm Gastrointestinal: Hernia Extremity: Normal Inspection Neurologic/Psychiatric: Alert, Oriented x3 Skin: Rash Comments Tender and irreducible right internal hernia. Excoriation of the scrotal skin and the adjoining thigh Assessment/Plan Assessment and Plan Gentleman with a strangulated right inguinal hernia. Nonischemic cardiomyopathy with an ejection fraction of 30 percent. Chronic renal insufficiency. I have offered prompt exploration and repair of the strangulated hernia, that may involve bowel resection. I have indicated increased morbidity and even the risk of mortality, in view of compromised cardiac function. With specific reference to the hernia, I have indicated the complications of wound infection and further recurrence. He seems to understand clearly and is willing to proceed with surgery, that'll be performed emergently Admission Diagnosis Admission Status: Inpatient Order (span 2 midnights) Reason for Inpatient Admission: medical problems and postoperative recovery expected to last longer than 2 days SARAHI QUEVEDO MD Jan 29, 2018 22:12
--- NOTE | 2018-01-29 22:14 | Progress Note-Pre Operative ---
Pre-Operative Progress Note H&P Reviewed The H&P was reviewed, patient examined and no changes noted. Date Seen by Provider: Jan 29, 2018 Time Seen by Provider: 21:30 Date H&P Reviewed: Jan 29, 2018 Time H&P Reviewed: 22:13 Pre-Operative Diagnosis: strangulated right inguinal hernia SARAHI QUEVEDO MD Jan 29, 2018 22:13
[2018-01-29] MEDS ORDERED: CLINDAMYCIN 600 MG/50 ML IVPB 50 ML IV ONE (22:15)
[2018-01-29] MEDS ORDERED: NS IV 500 ML 500 ML IV ONE (22:20)
--- OUTSIDE RECORDS SUMMARY | 2018-01-29 22:45 | XMS REPORT | Continuity of Care Document ---
Author Author [facility] Address Unknown Phone Unavailable Allergies Active Description [...] DPMark, EUGENIA 465.9 Upper Respiratory Infection 08/09/2008 MISA HATHAWAY, EUGENIA 465.9 Upper Respiratory Infection 08/09/2008 RONAL CAMARGO MD 465.9 Upper Respiratory Infection 08/09/2008 RONAL CAMARGO MD 465.9 Upper Respiratory Infection 08/09/2008 EUGENE SORENSEN DDS 465.9 Upper Respiratory Infection 08/09/2008 RONAL CAMARGO MD 465.9 Upper Respiratory Infection 08/09/2008 JORGE CORRECTION LIEUTENANT, ANA ROSA R 465.9 Upper Respiratory Infection [...] 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 11/01/2008 JORGE CORRECTION LIEUTENANT, ANA ROSA R 296.33 Mo Depressive Recurrent [...] 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, Unspecified, Site Unspecified 03/30/2009 JORGE CORRECTION LIEUTENANT, ANA ROSA R 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, Unspecified, Site [...] RONAL CAMARGO MD 356.9 Neuropathy 07/06/2009 RONAL CAAMRGO MD 703.8 Onychocryptosis 07/06/2009 110.1 Onychomycosis 07/06/2009 [...] RAMAN FLOYD, RONAL 703.8 Onychocryptosis 07/06/2009 JORGE CORRECTION LIEUTENANT, ANA ROSA R 110.1 Onychomycosis 07/06/2009 JORGE CORRECTION LIEUTENANT, ANA ROSA R 356.9 Neuropathy 07/06/2009 JORGE CORRECTION LIEUTENANT, ANA ROSA R 703.8 Onychocryptosis 07/06/2009 RAMAN [...] MISA DPM, EUGENIA 477.9 Rhinitis 09/28/2009 RAMAN FOLYD, RONAL 477.9 Rhinitis 09/28/2009 RAMAN FLOYD, RONAL [...] CAMARGO MD V76.44 Prostate Screening 04/05/2010 JORGE CORRECTION LIEUTENANT, ANA ROSA R 272.4 HYPERLIPIDEMIA 04/05/2010 JORGE CORRECTION LIEUTENANT, ANA ROSA R 311 DEPRESSIVE DISORDER NOS 04/05/2010 JORGE CORRECTION LIEUTENANT, ANA ROSA R V76.44 Prostate Screening 04/05/2010 RONAL CAMARGO MD 272.4 HYPERLIPIDEMIA 04/05/2010 RONAL CAMARGO MD 311 DEPRESSIVE DISORDER NOS 04/05/2010 RONAL CAMARGO MD V76.44 Prostate Screening 04/05/2010 FRANCHESCA WILLIS, EUGENE Paz 272.4 HYPERLIPIDEMIA 04/05/2010 FRANCHESCA WILLIS, EUGENE Paz 311 DEPRESSIVE DISORDER NOS 04/05/2010 FRANCHESCA WILLIS, EUGENE Paz V76.44 Prostate Screening 07/05/2010 RONAL CAMAROG MD 703.0 Ingrown Toenail (infection) 07/05/2010 RONAL [...] MD 703.0 Ingrown Toenail (infection) 07/05/2010 JORGE CORRECTION LIEUTENANT, ANA ROSA Yates 703.0 Ingrown Toenail (infection) [...] MD 372.30 Conjunctivitis Unspecified 01/10/2011 MISA DPM, EUGENIA 372.30 Conjunctivitis Unspecified 01/10/2011 MISA DPM, EUGENIA 372.30 Conjunctivitis Unspecified 01/10/2011 RONAL CAMARGO MD 372.30 Conjunctivitis Unspecified 01/10/2011 RONAL CAMARGO MD 372.30 Conjunctivitis Unspecified 01/10/2011 FRANCHESCA WILLIS, EUGENE Paz 372.30 Conjunctivitis Unspecified 01/10/2011 RONAL CAMARGO MD 372.30 Conjunctivitis Unspecified 01/10/2011 JORGE CORRECTION LIEUTENANT, ANA ROSA R 372.30 Conjunctivitis Unspecified 01/10/2011 [...] 01/01/2013 OSMIN FLOYD, ART Malone Ot V06.1 [id number], COMBINED [ 03/21/2013 RONAL CAMARGO MD 466.0 [...] DPM, EUGENIA 735.0 HALLUX VALGUS (ACQUIRED) 12/09/2013 MISA DPM, [...] KYRIE Ot I25.10 ATHSCL HEART DISEASE OF [place] CORONARY 01/13/2018 EDWARD DO, KYRIE Ot I25.5 [...] KYRIE Ot I25.10 ATHSCL HEART DISEASE OF [place] CORONARY 01/13/2018 EDWARD DO, KYRIE Ot I25.5 [...] KYRIE Ot I25.10 ATHSCL HEART DISEASE OF [place] CORONARY 01/14/2018 EDWARD DO, KYRIE Ot I25.5 [...] KYRIE Ot I25.10 ATHSCL HEART DISEASE OF [place] CORONARY 01/15/2018 EDWARD DO, KYRIE Ot I25.5 [...] KYRIE Ot I25.10 ATHSCL HEART DISEASE OF [place] CORONARY 01/15/2018 CHEYANNE CLEMENT, KYRIE Ot I25.5 [...] KYRIE Ot I25.10 ATHSCL HEART DISEASE OF [place] CORONARY 01/15/2018 CHEYANNE CLEMENT KYRIE Ot I25.5 [...] Procedures Code [place] [address] ROUTINE VENIPUNCTURE 04/27/2012 31131 CMP 04/27/2012 [id number] GFR CALC (RESULT ONLY) 04/27/2012 G0008 FLU ADMINISTRATION ( MEDICARE ONLY) 12/20/2012 35581 ROUTINE VENIPUNCTURE 08/02/2013 [id number] GFR CALC (RESULT ONLY) 08/02/2013 89901 CMP 08/02/2013 56943 CBC 08/02/2013 79216 ROUTINE VENIPUNCTURE 10/18/2013 Podiatry Eugenia Henley 10/18/2013 [id number] GFR CALC (RESULT ONLY) 10/18/2013 54113 BMP 10/18/2013 87867 DEBRIDE NAIL >6 12/09/2013 84921 ROUTINE VENIPUNCTURE 04/12/2014 32566 CBC 04/12/2014 40153 ROUTINE VENIPUNCTURE 07/10/2014 33041 PSA TOTAL 07/10/2014 [id number] MEASURE OF CARDIAC SAMPL PRESSURE, L H 01/13/2018 [id number] MEASUREMENT OF ARTERIAL PRESSURE, CAMP 01/13/2018 [id number] FLUOROSCOPY OF MULT COR ART USING L OSM 01/13/2018 [id number] FLUOROSCOPY OF LEFT HEART USING LOW OSMO [...] 7-25 CREATININE 1.15 mg/dL 0.70-1.18 eGFR NON-AFR. IVORIAN 62 mL/min/1.73m2 > OR=60 eGFR 72 mL/min/1.73m2 [...] NRG Measurement of body temperature 97.7 NRG [facility] - 01/21/18 10:30 GLUCOSE 74 mg/dL 65-99 UREA NITROGEN (BUN) 36 mg/dL 7-25 CREATININE 2.17 mg/dL 0.70-1.18 eGFR NON-AFR. IVORIAN 29 mL/min/1.73m2 > OR=60 eGFR 33 mL/min/1.73m2 > OR=60 BUN/CREATININE RATIO 17 (calc) 6-22 SODIUM 134 mmol/L 135-146 POTASSIUM 4.8 mmol/L 3.5-5.3 CHLORIDE 95 mmol/L 98-110 CARBON DIOXIDE 33 mmol/L 20-32 CALCIUM 9.3 mg/dL 8.6-10.3 Complete blood count (CBC) with automated white blood cell (WBC) differential - 01/29/18 19:18 Blood leukocytes automated count (number/volume) 9.6 10*3/uL 4.3-11.0 Blood erythrocytes automated count (number/volume) 6.63 10*6/uL 4.35-5.85 Venous blood hemoglobin measurement (mass/volume) 19.5 g/dL 13.3-17.7 Blood hematocrit (volume fraction) 57 % 40-54 Automated erythrocyte mean corpuscular volume 86 [foz_us] 80-99 Automated erythrocyte mean corpuscular hemoglobin (mass per erythrocyte) 29 pg 25-34 Automated erythrocyte mean corpuscular hemoglobin concentration measurement ( mass/volume) 34 g/dL 32-36 Automated erythrocyte distribution width ratio 15.5 % 10.0-14.5 Automated blood platelet count (count/volume) 196 10*3/uL 130-400 Automated blood platelet mean volume measurement 9.5 [foz_us] 7.4-10.4 Automated blood neutrophils/100 leukocytes 72 % 42-75 Automated blood lymphocytes/100 leukocytes 15 % 12-44 Blood monocytes/100 leukocytes 12 % 0-12 Automated blood eosinophils/100 leukocytes 1 % 0-10 Automated blood basophils/100 leukocytes 0 % 0-10 Blood neutrophils automated count (number/volume) 6.9 10*3 1.8-7.8 Blood lymphocytes automated count (number/volume) 1.4 10*3 1.0-4.0 Blood monocytes automated count (number/volume) 1.1 10*3 0.0-1.0 Automated eosinophil count 0.1 10*3/uL 0.0-0.3 Automated blood basophil count (count/volume) 0.0 10*3/uL 0.0-0.1 Comprehensive metabolic panel - 01/29/18 19:18 Serum or plasma sodium measurement (moles/volume) 134 mmol/L 135-145 Serum or plasma potassium measurement (moles/volume) 4.7 mmol/L 3.6-5.0 Serum or plasma chloride measurement (moles/volume) 96 mmol/L 98-107 Carbon dioxide 29 mmol/L 21-32 Serum or plasma anion gap determination (moles/volume) 9 mmol/L 5-14 Serum or plasma urea nitrogen measurement (mass/volume) 35 mg/dL 7-18 Serum or plasma creatinine measurement (mass/volume) 1.61 mg/dL 0.60-1.30 Serum or plasma urea nitrogen/creatinine mass ratio 22 NRG Serum or plasma creatinine measurement with calculation of estimated glomerular filtration rate 42 NRG Serum or plasma glucose measurement (mass/volume) 104 mg/dL 70-105 Serum or plasma calcium measurement (mass/volume) 9.7 mg/dL 8.5-10.1 Serum or plasma total bilirubin measurement (mass/volume) 1.6 mg/dL 0.1-1.0 Serum or plasma alkaline phosphatase measurement (enzymatic activity/volume) 108 U/L 40-136 Serum or plasma aspartate aminotransferase measurement (enzymatic activity/ volume) 24 U/L 5-34 Serum or plasma alanine aminotransferase measurement (enzymatic activity/volume ) 26 U/L 0-55 Serum or plasma protein measurement (mass/volume) 7.1 g/dL 6.4-8.2 Serum or plasma albumin measurement (mass/volume) 4.2 g/dL 3.2-4.5 CALCIUM CORRECTED 9.5 mg/dL 8.5-10.1 Encounters ACCT No. Visit Date/Time Discharge Status Pt. Type Provider Facility Loc./Unit Complaint [id number] 07/14/2014 10:11:00 07/14/2014 23:59:59 CLS Outpatient EUGENE SORENSEN DDS [id number] 07/10/2014 13:10:00 07/10/2014 23:59:59 CLS Outpatient RONAL CAMARGO MD [id number] 05/02/2014 12:53:00 05/02/2014 23:59:59 CLS Outpatient RONAL CAMARGO MD [id number] 04/21/2014 13:42:00 04/21/2014 23:59:59 CLS Outpatient EUGENE SORENSEN DDS [id number] 04/13/2014 11:22:00 04/13/2014 23:59:59 CLS Outpatient ANA ROSA PATEL APRN [id number] 04/12/2014 13:28:00 04/12/2014 23:59:59 CLS Outpatient RONAL CAMARGO MD [id number] 03/02/2014 14:21:00 03/02/2014 23:59:59 CLS Outpatient RONAL CAMARGO MD [id number] 12/30/2013 08:17:00 12/30/2013 23:59:59 CLS Outpatient EUGENIA HENLEY DPM [id number] 12/09/2013 07:37:00 12/09/2013 23:59:59 CLS Outpatient EUGENIA HENLEY DPM [id number] 10/18/2013 10:46:00 10/18/2013 23:59:59 CLS Outpatient RONAL CAMARGO MD [id number] 08/02/2013 10:39:00 08/02/2013 23:59:59 CLS Outpatient RONAL CAMARGO MD [id number] 02/03/2013 10:39:00 02/03/2013 23:59:59 CLS Outpatient RONAL CAMARGO MD [id number] 12/20/2012 13:21:00 12/20/2012 23:59:59 CLS Outpatient BG NAIR DO [id number] 04/27/2012 13:45:00 04/27/2012 23:59:59 CLS Outpatient [id number] 04/27/2012 13:45:00 04/27/2012 23:59:59 CLS Outpatient [id number] 12/25/2011 15:56:00 12/25/2011 23:59:59 CLS Outpatient RONAL CAMARGO MD [id number] 12/25/2011 15:56:00 12/25/2011 23:59:59 CLS Outpatient RONAL CAMARGO MD [id number] 08/19/2012 13:57:00 Document Registration [id number] 01/26/2018 16:18:00 01/26/2018 23:59:59 CLS Preadmit GARRET FLOYD, JULIA Mccabe [facility] CARD CHF [id number] 01/12/2018 13:37:00 01/15/2018 13:45:00 DIS Inpatient KYRIE EDWARD DO [facility] 4TH ACUTE HEART FAILURE; SCROTAL WOUND [id number] 01/01/2013 10:00:00 01/01/2013 13:04:00 DIS Emergency OSMIN FLOYD, ART Malone [facility] ER FALL [id number] 01/29/2018 22:15:00 ACT Inpatient SAE FLOYD, SARAHI Flores [facility] ICU INCARCERATED INGUINAL HERNIA,CHF [id number] 01/28/2018 21:00:00 PEN Preadmit DEBBIE FUENTES APRN [facility] SLEEP CARDIOMYOPATHY [id number] 01/15/2018 10:06:00 Document Registration [id number] 05/28/2006 05:51:00 Document Registration [id number] 04/29/2016 09:16:00 Document Registration [id number] 07/15/2016 13:05:00 Document Registration [id number] 09/10/2017 14:00:00 09/10/2017 23:59:59 [facility] Susi CAMARGO MD, RONAL [facility] [id number] 01/21/2018 09:40:00 Document Registration [id number] 09/10/2017 14:00:00 Document Registration [id number] 02/17/2017 10:00:00 Document Registration
[2018-01-29] MEDS ORDERED: morphine INJ 10 MG/ML 1ML (SYR OR VIAL) ONE (23:02)
[2018-01-29] MEDS ORDERED: BUP/EPI 0.5% 1:200,000 (SENSORCAINE) 30 ML VIAL ONE (23:20)
[2018-01-29] MEDS ORDERED: LACTATED RINGERS 1,000 ML IV PRN (23:31)
[2018-01-30] VITALS (12 sets, daily range): BP systolic 136–169; BP diastolic 73–94
[2018-01-30] MEDS ORDERED: DEXAMETHASONE 10 MG/ML (DECADRON) 1 ML VIAL ONE (00:34)
[2018-01-30] MEDS ORDERED: proPOfol 200 MG/20 ML (DIPRIVAN) VIAL IV ONE (00:34)
[2018-01-30] MEDS ORDERED: SEVOFLURANE (ULTANE) 15 ML INHAL SOLN ONE ×6 (00:34→03:11)
[2018-01-30] MEDS ORDERED: fentaNYL INJECTION 100 MCG/2 ML AMP ONE (00:34)
[2018-01-30] MEDS ORDERED: LIDOCAINE PF 2% 5 ML (XYLOCAINE) VIAL ONE (00:34)
[2018-01-30] MEDS ORDERED: ONDANSETRON 4 MG/2 ML (SDV) Z0FRAN ONE (00:34)
[2018-01-30] MEDS ORDERED: ROCURONIUM 10 MG/ML 5 ML SYRINGE IV ONE (00:34)
[2018-01-30] MEDS ORDERED: LACTATED RINGERS 1,000 ML IV PRN (01:45)
[2018-01-30] MEDS ORDERED: morphine INJ 10 MG/ML 1ML (SYR OR VIAL) IVP ONE (02:00)
[2018-01-30] MEDS ORDERED: ONDANSETRON 4 MG/2 ML (SDV) Z0FRAN IVP PRN ×2 (02:00→03:45)
[2018-01-30] MEDS ORDERED: NEOSTIGMINE 1 MG/ML 5 ML SYRINGE ONE (02:39)
[2018-01-30] MEDS ORDERED: GLYCOPYRROLATE 0.2 MG/ML (ROBINUL) 2 ML VIAL ONE (02:39)
[2018-01-30] MEDS ORDERED: LACTATED RINGERS 1,000 ML IV SCH (03:32)
--- NOTE | 2018-01-30 03:32 | Operative Report ---
Operative Report Date of Procedure/Surgery Jan 30, 2018 Surgeon (s) SARAHI QUEVEDO MD [employer]ic (s): N/A Post-Operative Diagnosis strangulated right inguinal hernia, that was reduced on induction of anesthetic. No ischemic bowel Procedure Performed open repair of right inguinal hernia with mesh Description of Procedure Anesthesia Type: General Estimated blood loss (mL): minimal Specimen(s) collected/removed lipoma of cord and hernia sac Description of the Procedure Indication for the procedure: This gentleman with cardiomyopathy and chronic renal insufficiency, presented with a strangulated right inguinal hernia. He was offered repair, emphasizing increased operative risk and the potential for bowel resection, should ischemic bowel be encountered. Increased risk of recurrence was also highlighted. Informed consent was obtained. Description of procedure: As he was placed on the operative table, the hernia was found to be reduced. Gen. anesthesia was induced and clindamycin administered intravenously as prophylaxis against wound infection. Sequential compression devices were placed around his legs, to minimize the risk of venous thrombosis. Right inguinal region was prepared and draped in the usual sterile manner. Preemptive analgesia was established using 0.5 percent Marcaine with epinephrine. A 5 cm oblique incision was made and the external oblique aponeurosis incised along the direction of its fibers. A thick hernia sac densely adherent to the inguinal ligament and the pubic tubercle was encountered. It was carefully and dissection continued up to the deep inguinal ring. An associated lipoma of the cord was excised at the level of the deep inguinal ring, the stump being managed by Harmonic scalpel. The sac was then opened and the hernia found to be of the sliding variety. I was able to examine the cecum and the adjacent terminal ileum, that appeared to be viable. Therefore, I elected to perform a conventional repair. The hernia sac was transfixed at the level of the deep inguinal ring using 0 Vicryl sutures and the redundant portion sent for histologic examination. Transversalis fascia was plicated using 2-0 Vicryl suture, without constricting the cord structures. The inguinal canal was then reinforced using a polypropylene mesh secured to the ligament and the conjoined tendon with 0 Ethibond sutures.The area was then irrigated with saline and the external oblique reconstituted using 0 Vicryl sutures. Subcutaneous tissue was approximated using 3-0 Vicryl and skin with 4-0 Vicryl, in a subcuticular fashion. He tolerated the procedure well, was extubated in the operating room and taken to the recovery room in a stable condition. Findings of the Procedure See op report Allergies and Home Medications Allergies Coded Allergies: NKANo Known Allergies (Verified Allergy, Unknown, 05/28/06) Home Medications Furosemide 40 Mg Tablet, 40 MG PO DAILY Prescribed by: JULIA COMBS on 01/15/18815 Hydrocodone/Acetaminophen 1 Each Tablet, 1 TAB PO TID PRN for PAIN-MODERATE, ( Reported) Losartan Potassium 50 Mg Tablet, 50 MG PO DAILY Prescribed by: JULIA COMBS on 01/15/18815 Metoprolol Succinate 25 Mg Tab.er.24h, 25 MG PO DAILY Prescribed by: JULIA COMBS on 01/15/18815 Potassium Chloride 20 Meq Tablet.er, 20 MEQ PO DAILY Prescribed by: JULIA COMBS on 01/15/18820 Patient Home Medication List Home Medication List Reviewed: Yes SARAHI QUEVEDO MD Jan 30, 2018 03:32
[2018-01-30] MEDS ORDERED: PATIENT MAY USE OWN MEDS, ALL PO SCH (03:45)
[2018-01-30] MEDS ORDERED: HYDROcodone/APAP 5 MG/325 MG (LORTAB) TAB PO PRN (03:45)
[2018-01-30] MEDS ORDERED: fentaNYL INJECTION 100 MCG/2 ML AMP IV PRN (03:45)
[2018-01-30 05:51] LABS: BASOPHILS % (AUTO) 0 % (0-10); EOSINOPHILS % (AUTO) 0 % (0-10); HEMATOCRIT 55 % (40-54); LYMPHOCYTES # (AUTO) 0.8 X 10^3 (1.0-4.0); LYMPHOCYTES % (AUTO) 6 % (12-44); MEAN CORPUSCULAR HEMOGLOBIN 30 PG (25-34); MEAN CORPUSCULAR HGB CONC 35 G/DL (32-36); MEAN CORPUSCULAR VOLUME 86 FL (80-99); MEAN PLATELET VOLUME 9.7 FL (7.4-10.4); MONOCYTES % (AUTO) 3 % (0-12); NEUTROPHILS # (AUTO) 11.9 X 10^3 (1.8-7.8); NEUTROPHILS % (AUTO) 91 % (42-75); PLATELET COUNT 203 10^3/uL (130-400); RED BLOOD COUNT 6.36 10^6/uL (4.35-5.85); RED CELL DISTRIBUTION WIDTH 14.8 % (10.0-14.5); WHITE BLOOD COUNT 13.2 10^3/uL (4.3-11.0)
[2018-01-30 05:52] LABS: MONOCYTES # (AUTO) 0.4 X 10^3 (0.0-1.0)
[2018-01-30] MEDS ORDERED: POTASSIUM CL 10MEQ/50ML IVPB 50 ML IV SCH (06:00)
[2018-01-30] MEDS ORDERED: KCL 20 MEQ TAB (K-DUR) PO SCH (06:00)
[2018-01-30] MEDS ORDERED: MAGNESIUM 1 GM/100 ML IVPB 100 ML IV SCH (06:00)
[2018-01-30 06:11] LABS: CALCIUM 9.6 MG/DL (8.5-10.1); CREATININE SERUM 1.33 MG/DL (0.60-1.30); PHOSPHORUS 2.2 MG/DL (2.3-4.7); POTASSIUM 4.6 MMOL/L (3.6-5.0)
[2018-01-30 06:47] LABS: LYMPHOCYTES % (MANUAL) 3 %; MONOCYTES % (MANUAL) 3 %; NEUTROPHILS % (MANUAL) 94 %
--- NOTE | 2018-01-30 08:27 | Pulmonary Consultation ---
History of Present Illness History of Present Illness Date of Consultation 01/30/18 08:22 Date of Admission Allergies and Home Medications Allergies Coded Allergies: NKANo Known Allergies (Verified Allergy, Unknown, 05/28/06) Home Medications Furosemide 40 Mg Tablet, 40 MG PO DAILY Prescribed by: JULIA COMBS on 01/15/18815 Hydrocodone/Acetaminophen 1 Each Tablet, 1 TAB PO TID PRN for PAIN-MODERATE, ( Reported) Losartan Potassium 50 Mg Tablet, 50 MG PO DAILY Prescribed by: JULIA COMBS on 01/15/18815 Metoprolol Succinate 25 Mg Tab.er.24h, 25 MG PO DAILY Prescribed by: JULIA COMBS on 01/15/18815 Potassium Chloride 20 Meq Tablet.er, 20 MEQ PO DAILY Prescribed by: JULIA COMBS on 01/15/18820 Past Ilfxdvp-Xrjrnr-Anaxvz Hx Patient Social History Alcohol Use: Denies Use Recreational Drug Use: No Smoking Status: Never a Smoker Recent Foreign Travel: No Contact w/Someone Who Travel: No Recent Infectious Disease Expo: No Recent Hopitalizations: Yes Physical Abuse: No Sexual Abuse: No Mistreated: No Immunizations Up To Date Tetanus Booster (TDap): More than 5yrs Date of Influenza Vaccine: Dec 30, 2017 Seasonal Allergies Seasonal Allergies: No Past Medical History Surgeries: Yes Cardiac (cardiac angiography 2017, no interventions) Respiratory: No Cardiac: Yes (LIFE VEST) Cardiomyopathy (nonischemic, life rest), Hypertension Neurological: No Reproductive Disorders: No Genitourinary: Yes (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 No Pertinent Family Hx, Hypertension Sepsis Event Evaluation Height, Weight, BMI Height: 5'9.00" Weight: 164lbs. 4.0oz. 74.256648ya; 23.5 BMI Method:Estimated Exam Exam Vital Signs Date Time Temp Pulse Resp B/P (MAP) Pulse Ox O2 Delivery O2 Flow Rate FiO2 01/30/18 06:30 64 11 145/79 (101) 95 Room Air 01/30/18 06:00 63 12 158/84 (108) 100 Room Air 01/30/18 05:30 62 10 159/85 (109) 100 Nasal Cannula 2.00 01/30/18 05:15 60 12 157/83 (107) 99 Nasal Cannula 2.00 01/30/18 05:00 62 12 165/87 (113) 100 Nasal Cannula 2.00 01/30/18 04:45 97.1 63 11 169/94 (119) 99 Nasal Cannula 2.00 01/30/18 04:45 Nasal Cannula 2.00 01/30/18 04:13 64 01/30/18 01:45 98.6 80 18 0/0 (0) 98 01/29/18 18:08 96.2 57 18 174/100 (124) 96 I & O 01/30/18 07:00 Intake Total 1050 ml Output Total 275 ml Balance 775 ml Height & Weight Height: 5'9.00" Weight: 164lbs. 4.0oz. 74.295074so; 23.5 BMI Method:Estimated General Appearance: Moderate Distress Neck: Normal Inspection Respiratory: Lungs Clear Cardiovascular: Regular Rate, Rhythm Capillary Refill: Less Than 3 Seconds Gastrointestinal: normal bowel sounds, soft, other (firm bulging inguinal hernia on the right) Extremity: Normal Inspection Neurologic/Psychiatric: Alert, Oriented x3 Skin: Rash Results Lab Laboratory Tests 01/29/18 19:18 01/30/18 05:39 Assessment/Plan Assessment/Plan Strangulated right inguinal hernia s/p surgery Nonischemic cardiomyopathy with EF of 30% Leukocytosis - reactive -Monitor Polycythemia - probably secondary -Monitor may need to hematology consult Probable GLEN Chronic renal disease VALERIE MCFARLANE DO Jan 30, 2018 08:27
--- NOTE | 2018-01-30 09:19 | Consultation-Cardiology ---
HPI-Cardiology Cardiology Consultation Date of Consultation 01/30/18 Date of Admission Time Seen by Provider: 09:13 Indication: CAD HPI 77-year-old gentleman with history of coronary artery disease, congestive heart failure and nonischemic cardiomyopathy, admitted through the emergency room with acute incarcerated right inguinal hernia, was taken directly to the operating room, underwent surgery and reporting improvement today, is feeling better, he was seen and evaluated, denied any chest pain, has been compliant with his medication, denied any palpitation. Syncope or near syncopal episodes. He is at increased risk of sudden and using LifeVest. Home Medications & Allergies Allergies: Coded Allergies: NKANo Known Allergies (Verified Allergy, Unknown, 05/28/06) Home Medication List Reviewed: Yes HJP-Ukcmqr-Slafwx Hx Patient Social History Marital Status: single Employed/Student: employed Alcohol Use: Denies Use Recreational Drug Use: No Smoking Status: Never a Smoker Recent Foreign Travel: No Recent Infectious Disease Expo: No Recent Hopitalizations: Yes Physical Abuse Screen: No Sexual Abuse: No Immunizations Up To Date Tetanus Booster (TDap): More than 5yrs Date of Influenza Vaccine: Dec 30, 2017 Past Medical History Past medical history as described below Family Medical History Significant Family History: No Pertinent Family Hx, Hypertension Family Medical Hx Non contributory Family History: Patient reports no known family medical history. Review of Systems Constitutional: no symptoms reported, see HPI EENTM: see HPI, no symptoms reported Respiratory: no symptoms reported, see HPI Cardiovascular: no symptoms reported, see HPI Gastrointestinal: no symptoms reported, see HPI Genitourinary: no symptoms reported, see HPI Musculoskeletal: see HPI Skin: no symptoms reported, see HPI Psychiatric/Neurological: No Symptoms Reported, See HPI Reviewed Test Results Reviewed Test Results Lab Laboratory Tests Test 01/29/18 19:18 01/30/18 05:39 Range/Units White Blood Count 9.6 13.2 H 4.3-11.0 10^3/uL Red Blood Count 6.63 H 6.36 H 4.35-5.85 10^6/uL Hemoglobin 19.5 H 19.0 H 13.3-17.7 G/DL Hematocrit 57 H 55 H 40-54 % Mean Corpuscular Volume 86 86 80-99 FL Mean Corpuscular Hemoglobin 29 30 25-34 PG Mean Corpuscular Hemoglobin Concent 34 35 32-36 G/DL Red Cell Distribution Width 15.5 H 14.8 H 10.0-14.5 % Platelet Count 196 203 130-400 10^3/uL Mean Platelet Volume 9.5 9.7 7.4-10.4 FL Neutrophils (%) (Auto) 72 91 H 42-75 % Lymphocytes (%) (Auto) 15 6 L 12-44 % Monocytes (%) (Auto) 12 3 0-12 % Eosinophils (%) (Auto) 1 0 0-10 % Basophils (%) (Auto) 0 0 0-10 % Neutrophils # (Auto) 6.9 11.9 H 1.8-7.8 X 10^3 Lymphocytes # (Auto) 1.4 0.8 L 1.0-4.0 X 10^3 Monocytes # (Auto) 1.1 H 0.4 0.0-1.0 X 10^3 Eosinophils # (Auto) 0.1 0.0 0.0-0.3 10^3/uL Basophils # (Auto) 0.0 0.0 0.0-0.1 10^3/uL Sodium Level 134 L 135 135-145 MMOL/L Potassium Level 4.7 4.6 3.6-5.0 MMOL/L Chloride Level 96 L 101 98-107 MMOL/L Carbon Dioxide Level 29 22 21-32 MMOL/L Anion Gap 9 12 5-14 MMOL/L Blood Urea Nitrogen 35 H 30 H 7-18 MG/DL Creatinine 1.61 H 1.33 H 0.60-1.30 MG/DL Estimat Glomerular Filtration Rate 42 52 BUN/Creatinine Ratio 22 23 Glucose Level 104 115 H 70-105 MG/DL Calcium Level 9.7 9.6 8.5-10.1 MG/DL Corrected Calcium 9.5 8.5-10.1 MG/DL Total Bilirubin 1.6 H 0.1-1.0 MG/DL Aspartate Amino Transf (AST/SGOT) 24 5-34 U/L Alanine Aminotransferase (ALT/SGPT) 26 0-55 U/L Alkaline Phosphatase 108 40-136 U/L Total Protein 7.1 6.4-8.2 GM/DL Albumin 4.2 3.2-4.5 GM/DL Neutrophils % (Manual) 94 % Lymphocytes % (Manual) 3 % Monocytes % (Manual) 3 % Phosphorus Level 2.2 L 2.3-4.7 MG/DL Magnesium Level 2.0 1.8-2.4 MG/DL Physical Exam Vital Signs Vital Signs - First Documented 01/29/18 18:08 Temp 96.2 Pulse 57 Resp 18 B/P (MAP) 174/100 (124) Pulse Ox 96 Capillary Refill : Less Than 3 Seconds Height, Weight, BMI Height: 5'9.00" Weight: 164lbs. 4.0oz. 74.533742cw; 23.5 BMI Method:Estimated General Appearance: No Apparent Distress, WD/WN Eyes: Bilateral Eye Normal Inspection, Bilateral Eye PERRL, Bilateral Eye EOMI HEENT: PERRL/EOMI, TMs Normal, Normal ENT Inspection, Pharynx Normal Neck: Full Range of Motion, Normal Inspection, Non Tender, Supple, Carotid Bruit Respiratory: Chest Non Tender, Lungs Clear, Normal Breath Sounds, No Accessory Muscle Use, No Respiratory Distress Cardiovascular: Regular Rate, Rhythm, No Edema, No Gallop, No JVD, No Murmur, Normal Peripheral Pulses Gastrointestinal: Normal Bowel Sounds, No Organomegaly, No Pulsatile Mass, Non Tender, Soft Back: Normal Inspection, No CVA Tenderness, No Vertebral Tenderness Extremity: Normal Capillary Refill, Normal Inspection, Normal Range of Motion, Non Tender, No Calf Tenderness, No Pedal Edema Neurologic/Psychiatric: Alert, Oriented x3, No Motor/Sensory Deficits, Normal Mood/Affect Skin: Normal Color, Warm/Dry Lymphatic: No Adenopathy A/P-Cardiology Admission Diagnosis Right inguinal hernia Coronary artery disease Congestive heart failure Hypertension Chronic renal insufficiency Assessment/Plan Right incarcerated inguinal hernia status post emergency reduction, had surgical repair done last night. Doing well, recovering well. Congestive heart failure, Chronic compensated left ventricular systolic dysfunction, restart meds and monitor Coronary artery disease status post cardiac catheterization done on January 13, 2018, showing distal left main coronary artery stenosis and ostial LAD with calcification, FFR 0.98, moderate stenosis at the ostium of the circumflex artery and mild disease in the midright coronary artery, severe cardiomyopathy with ejection fraction 30 percent. Increased risk of sudden , has LifeVest History of mild alcohol use, educated on avoiding any alcohol products Chronic renal insufficiency, continue to monitor renal function Hypertension, restart home meds and monitor blood pressure No hyperlipidemia was noted Clinical Quality Measures DVT/VTE Risk/Contraindication: Risk Factor Score Per Nursin RFS Level Per Nursing on Admit: 4+=Very High JULIA COMBS MD Jan 30, 2018 09:19
--- NOTE | 2018-01-30 11:05 | Progress Note-Standard ---
Standard Progress Note Progress Notes/Assess & Plan Date Seen by a Provider: Jan 30, 2018 Time Seen by a Provider: 11:04 Progress/Assessment & Plan Doing well and could be discharged home Final Diagnosis Strangulated right ing hernia SARAHI QUEVEDO MD Jan 30, 2018 11:05
[2018-01-30] MEDS ORDERED: ACHD5005 PO ×3 (11:06→11:38)
--- NOTE | 2018-01-30 11:08 | Discharge Inst-Simple/Standard ---
Discharge Inst-Standard Discharge Medications New, Converted or Re-Newed RX: RX on Chart Patient Instructions/Follow Up Plan of Care/Instructions/FU: Dressing off tomorrow. Scrotal support for 2 weeks. F/U in 3 weeks Activity as Tolerated: No Goal: No lifting or pushing Discharge Diet: No Restrictions Planned Outpatient Orders/Ref. Pneu Vac Indicated: Yes SARAHI QUEVEDO MD Jan 30, 2018 11:08
--- NOTE | 2018-01-30 12:17 | Discharge Summary ---
Diagnosis/Chief Complaint Date of Admission Jan 29, 2018 at 22:15 Date of Discharge 01/30/18 Discharge Date: Jan 30, 2018 Discharge Time: 12:14 Admission Diagnosis Admission Diagnosis strangulated right inguinal hernia Discharge Diagnosis right inguinal hernia, reduced spontaneously Reason Hospital Visit Painful swelling over the right inguinal region with CT scan confirming a strangulated hernia, containing loops of bowel with edema. At the time of his arrival in the operating room, the hernia had been reduced spontaneously and he had no evidence of bowel obstruction. an open, conventional repair of this inguinal hernia using a polypropylene mesh was completed and he has made a satisfactory recovery. Discharge Summary Procedures open repair of right inguinal hernia with mesh. instructed not to lift or push anything for at least 6 weeks. He'll be followed up in my office in about 3 weeks. Consultations cardiology consultation with no new recommendations Discharge Physical Examination Allergies: Coded Allergies: NKANo Known Allergies (Verified Allergy, Unknown, 05/28/06) Vitals & I&Os Vital Signs Date Time Temp Pulse Resp B/P (MAP) Pulse Ox O2 Delivery O2 Flow Rate FiO2 01/30/18 12:02 Room Air 01/30/18 12:00 68 19 136/75 (95) 95 01/30/18 12:00 2.00 01/30/18 10:00 97.6 Hospital Course Labs (last 24 hrs) Laboratory Tests 01/29/18 19:18: White Blood Count 9.6, Red Blood Count 6.63H, Hemoglobin 19.5H, Hematocrit 57H, Mean Corpuscular Volume 86, Mean Corpuscular Hemoglobin 29, Mean Corpuscular Hemoglobin Concent 34, Red Cell Distribution Width 15.5H, Platelet Count 196, Mean Platelet Volume 9.5, Neutrophils (%) (Auto) 72, Lymphocytes (%) (Auto) 15, Monocytes (%) (Auto) 12, Eosinophils (%) (Auto) 1, Basophils (%) (Auto) 0, Neutrophils # (Auto) 6.9, Lymphocytes # (Auto) 1.4, Monocytes # (Auto) 1.1H, Eosinophils # (Auto) 0.1, Basophils # (Auto) 0.0, Sodium Level 134L, Potassium Level 4.7, Chloride Level 96L, Carbon Dioxide Level 29, Anion Gap 9, Blood Urea Nitrogen 35H, Creatinine 1.61H, Estimat Glomerular Filtration Rate 42, BUN/ Creatinine Ratio 22, Glucose Level 104, Calcium Level 9.7, Corrected Calcium 9.5 , Total Bilirubin 1.6H, Aspartate Amino Transf (AST/SGOT) 24, Alanine Aminotransferase (ALT/SGPT) 26, Alkaline Phosphatase 108, Total Protein 7.1, Albumin 4.2 01/30/18 05:39: White Blood Count 13.2H, Red Blood Count 6.36H, Hemoglobin 19.0H, Hematocrit 55H , Mean Corpuscular Volume 86, Mean Corpuscular Hemoglobin 30, Mean Corpuscular Hemoglobin Concent 35, Red Cell Distribution Width 14.8H, Platelet Count 203, Mean Platelet Volume 9.7, Neutrophils (%) (Auto) 91H, Lymphocytes (%) (Auto) 6L , Monocytes (%) (Auto) 3, Eosinophils (%) (Auto) 0, Basophils (%) (Auto) 0, Neutrophils # (Auto) 11.9H, Lymphocytes # (Auto) 0.8L, Monocytes # (Auto) 0.4, Eosinophils # (Auto) 0.0, Basophils # (Auto) 0.0, Sodium Level 135, Potassium Level 4.6, Chloride Level 101, Carbon Dioxide Level 22, Anion Gap 12, Blood Urea Nitrogen 30H, Creatinine 1.33H, Estimat Glomerular Filtration Rate 52, BUN/ Creatinine Ratio 23, Glucose Level 115H, Calcium Level 9.6, Neutrophils % ( Manual) 94, Lymphocytes % (Manual) 3, Monocytes % (Manual) 3, Phosphorus Level 2.2L, Magnesium Level 2.0 Pending Labs Laboratory Tests 01/29/18 19:18: White Blood Count 9.6, Red Blood Count 6.63, Hemoglobin 19.5, Hematocrit 57, Mean Corpuscular Volume 86, Mean Corpuscular Hemoglobin 29, Mean Corpuscular Hemoglobin Concent 34, Red Cell Distribution Width 15.5, Platelet Count 196, Mean Platelet Volume 9.5, Neutrophils (%) (Auto) 72, Lymphocytes (%) (Auto) 15, Monocytes (%) (Auto) 12, Eosinophils (%) (Auto) 1, Basophils (%) (Auto) 0, Neutrophils # (Auto) 6.9, Lymphocytes # (Auto) 1.4, Monocytes # (Auto) 1.1, Eosinophils # (Auto) 0.1, Basophils # (Auto) 0.0, Sodium Level 134, Potassium Level 4.7, Chloride Level 96, Carbon Dioxide Level 29, Anion Gap 9, Blood Urea Nitrogen 35, Creatinine 1.61, Estimat Glomerular Filtration Rate 42, BUN/ Creatinine Ratio 22, Glucose Level 104, Calcium Level 9.7, Corrected Calcium 9.5 , Total Bilirubin 1.6, Aspartate Amino Transf (AST/SGOT) 24, Alanine Aminotransferase (ALT/SGPT) 26, Alkaline Phosphatase 108, Total Protein 7.1, Albumin 4.2 01/30/18 05:39: White Blood Count 13.2, Red Blood Count 6.36, Hemoglobin 19.0, Hematocrit 55, Mean Corpuscular Volume 86, Mean Corpuscular Hemoglobin 30, Mean Corpuscular Hemoglobin Concent 35, Red Cell Distribution Width 14.8, Platelet Count 203, Mean Platelet Volume 9.7, Neutrophils (%) (Auto) 91, Lymphocytes (%) (Auto) 6, Monocytes (%) (Auto) 3, Eosinophils (%) (Auto) 0, Basophils (%) (Auto) 0, Neutrophils # (Auto) 11.9, Lymphocytes # (Auto) 0.8, Monocytes # (Auto) 0.4, Eosinophils # (Auto) 0.0, Basophils # (Auto) 0.0, Sodium Level 135, Potassium Level 4.6, Chloride Level 101, Carbon Dioxide Level 22, Anion Gap 12, Blood Urea Nitrogen 30, Creatinine 1.33, Estimat Glomerular Filtration Rate 52, BUN/ Creatinine Ratio 23, Glucose Level 115, Calcium Level 9.6, Neutrophils % (Manual ) 94, Lymphocytes % (Manual) 3, Monocytes % (Manual) 3, Phosphorus Level 2.2, Magnesium Level 2.0 Discharge Home Medications: Active Scripts Active Hydrocodone/Acetaminophen 5/325mg Tablet (Acetaminophen/Hydrocodone Bitart) 1 Tab Tab 1 Tab PO Q6H PRN MDD 10 Hydrocodone/Acetaminophen 5/325mg Tablet (Acetaminophen/Hydrocodone Bitart) 1 Tab Tab 1 Tab PO Q6H PRN MDD 10 Hydrocodone/Acetaminophen 5/325mg Tablet (Acetaminophen/Hydrocodone Bitart) 1 Tab Tab 1 Tab PO Q6H PRN MDD 10 Potassium Chloride 20 Meq Tablet.er 20 Meq PO DAILY Lasix (Furosemide) 40 Mg Tablet 40 Mg PO DAILY Losartan Potassium 50 Mg Tablet 50 Mg PO DAILY Metoprolol Succinate 25 Mg Tab.er.24h 25 Mg PO DAILY Reported Hydrocodone-Acetamin 5-325 mg (Hydrocodone/Acetaminophen) 1 Each Tablet 1 Tab PO TID PRN Instructions to patient/family Please see electronic discharge instructions given to patient. Clinical Quality Measures DVT/VTE Risk/Contraindication: Risk Factor Score Per Nursin RFS Level Per Nursing on Admit: 4+=Very High SARAHI QUEVEDO MD Jan 30, 2018 12:17
--- NOTE | 2018-01-30 16:16 | Anesthesia-General Post-Op ---
General Patient Condition Mental Status/LOC: Same as Preop Cardiovascular: Satisfactory Nausea/Vomiting: Absent Respiratory: Satisfactory Pain: Controlled Complications: Absent Post Op Complications Complications None Follow Up Care/Instructions Patient Instructions None needed. Anesthesia/Patient Condition Patient Condition Patient is doing well, no complaints, stable vital signs, no apparent adverse anesthesia problems. No complications reported per nursing. MADIE GEORGES CRNA Jan 30, 2018 16:16
[2018-01-31] MEDS ORDERED: KCL 20 MEQ TAB (K-DUR) PO SCH (07:00)
[2018-01-31] MEDS ORDERED: FUROSEMIDE 40 MG (LASIX) TAB PO SCH (09:00)
[2018-01-31] MEDS ORDERED: LOSARTAN 50 MG (COZAAR) TAB PO SCH (09:00)
== END 2018-01-30 17:10 | disposition home or self-care (01) | DRG 351 ==
LOC: EDUNIT# 17:21 → ER 17:23 → ICU 22:15
PROVIDERS: ADMIT Surgery; ATTEND Surgery
PROC: 0YB50ZZ Excision of Right Inguinal Region, Open Approach (ICD-10-PCS; 2018-01-30)
PROC: 0YU50JZ Supplement Right Inguinal Region with Synthetic Substitute, Open Approach (ICD-10-PCS; principal; 2018-01-30 01:58)
DX: K40.30 Unilateral inguinal hernia, with obstruction, without gangrene, not specified as recurrent (principal); D17.6 Benign lipomatous neoplasm of spermatic cord; I13.0 Hypertensive heart and chronic kidney disease with heart failure and stage 1 through stage 4 chronic kidney disease, or unspecified chronic kidney disease; I50.22 Chronic systolic (congestive) heart failure; N18.9 Chronic kidney disease, unspecified; N17.9 Acute kidney failure, unspecified; I42.9 Cardiomyopathy, unspecified; F41.9 Anxiety disorder, unspecified; D75.1 Secondary polycythemia; G47.33 Obstructive sleep apnea (adult) (pediatric)
CPT/HCPCS: 36415; 74176; 80048; 80053; 83735; 84100; 85007; 85025; 85027; 87081; 94664

== ENCOUNTER → 2018-02-25 | Outpatient (CLI) | payer MEDICARE ==
[~2018-02-25] MED LIST changes: +ACHD5005 PO
== END ==
LOC: CARD 09:57
PROVIDERS: ATTEND Internal Medicine Cardiovascular Disease
DX: I50.9 Heart failure, unspecified (principal); I35.8 Other nonrheumatic aortic valve disorders; I25.10 Atherosclerotic heart disease of native coronary artery without angina pectoris; I34.0 Nonrheumatic mitral (valve) insufficiency
CPT/HCPCS: 93306

== ENCOUNTER 2018-08-06 15:22 | Emergency (ER) | payer MEDICARE, OTHER ==
[~2018-08-06] VITALS: Ht 167.6 cm; Wt 74.8 kg
[~2018-08-06 15:22] MED LIST changes: +LOSA50TA63 PO; -LOSA50TA7 PO
--- NOTE | 2018-08-06 16:17 | ED Fall/Injury ---
General Stated Complaint: WC FALL Source: patient History of Present Illness Date Seen by Provider: August 06, 2018 Time Seen by Provider: 15:36 Initial Comments 77 yo M presenting to the ED with complaints of a fall at work. He works at [employer] and tripped on a rug falling and hit his head on concrete. He did hit his right hand on the ground as well when he fell as he was trying to catch himself. He has some pain in the palm of his right hand, right thigh, and he had a small contusion to his head initially. He had no loss of consciousness. He denies any change in his vision or nausea/vomiting. He has no difficulty walking. He has no trouble using his arms or legs. He has no new neck or back pain. No drainage from his ears or nose. He presents with a staff member from [employer]. They reportedly tried calling to [facility] where they normally would go for a work comp injury and they were told to go to the ED because of him falling and hitting his head. He does not take any blood thinners. Occurred: just prior to arrival Injuries/Pain Location: head, upper extremity (right palm), lower extremity (ri ght thigh) Context: tripped Loss of Consciousness: no loss of consciousness Associated Symptoms (Fall): No Confusion, No Dizziness, No Headache, No Lightheadedness, No Muscle Spasms, No Nausea/Vomiting, No Neck Pain, No Ringing in Ears, No Seizures, No Shortness of Air, No Slurred Speech, No Trouble Walking, No Vision Changes Allergies and Home Medications Allergies Coded Allergies: NKANo Known Allergies (Verified Allergy, Unknown, 05/28/06) Home Medications Furosemide 40 Mg Tablet, 40 MG PO DAILY Prescribed by: JULIA COMBS on 01/15/18 0816 Hydrocodone Bit/Acetaminophen 1 Tab Tab, 1 TAB PO Q6H PRN for PAIN-MODERATE Prescribed by: SARAHI QUEVEDO on 01/30/18 1106 Hydrocodone Bit/Acetaminophen 1 Tab Tab, 1 TAB PO Q6H PRN for PAIN-MODERATE Prescribed by: SARAHI QUEVEDO on 01/30/18 1111 Hydrocodone Bit/Acetaminophen 1 Tab Tab, 1 TAB PO Q6H PRN for PAIN-MODERATE Prescribed by: SARAHI QUEVEDO on 01/30/18 1138 Hydrocodone/Acetaminophen 1 Each Tablet, 1 TAB PO TID PRN for PAIN-MODERATE, (Reported) Losartan Potassium 50 Mg Tablet, 50 MG PO DAILY Prescribed by: JULIA COMBS on 01/15/18815 Metoprolol Succinate 25 Mg Tab.er.24h, 25 MG PO DAILY Prescribed by: JULIA COMBS on 01/15/18815 Potassium Chloride 20 Meq Tablet.er, 20 MEQ PO DAILY Prescribed by: JULIA COMBS on 01/15/18820 Patient Home Medication List Home Medication List Reviewed: Yes Review of Systems Review of Systems Constitutional: see HPI; No dizziness, No weakness Eyes: See HPI; Denies Blurred Vision, Denies Drainage, Denies Photophobia Ears, Nose, Mouth, Throat: no symptoms reported; denies ear discharge, denies nose discharge, denies loose teeth Respiratory: no symptoms reported; No cough, No dyspnea on exertion, No short of breath Cardiovascular: no symptoms reported; No chest pain Gastrointestinal: no symptoms reported; No nausea, No vomiting Genitourinary: no symptoms reported Musculoskeletal: see HPI Skin: see HPI, other Psychiatric/Neurological: No Symptoms Reported; Denies Numbness, Denies Seizure, Denies Weakness Past Pnmgckk-Xzyaxg-Yrlked Hx Past Med/Social Hx: Reviewed Nursing Past Med/Soc Hx Patient Social History Recent Hopitalizations: Yes Immunizations Up To Date Tetanus Booster (TDap): More than 5yrs Date of Influenza Vaccine: Dec 30, 2017 Seasonal Allergies Seasonal Allergies: No Past Medical History Surgeries: Yes Cardiac Respiratory: No Cardiac: Yes (LIFE VEST) Cardiomyopathy, Hypertension Neurological: No Reproductive Disorders: No Genitourinary: Yes (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 No Pertinent Family Hx, Hypertension Physical Exam Vital Signs Vital Signs - First Documented Capillary Refill : Height, Weight, BMI Height: 5'9.00" Weight: 164lbs. 4.0oz. [id number]; 23.5 BMI Method:Estimated General Appearance: WD/WN, no apparent distress HEENT: PERRL/EOMI, normal ENT inspection, TMs normal, pharynx normal, other (small scabs on bald scalp where he has picked at his skin but no acute laceration or fracture/instability of skull. TMs clear bilaterally without hemotympanum or drainage) Neck: non-tender, full range of motion, supple, normal inspection Cardiovascular: normal peripheral pulses, regular rate, rhythm Respiratory: chest non-tender, lungs clear, normal breath sounds, no respiratory distress, no accessory muscle use Gastrointestinal: normal bowel sounds, non tender, soft Back: other (mild tenderness to midthoracic spine but pt reports that is not new for him after th is fall and denies any new back pain) Extremities: normal range of motion, no calf tenderness, other (mild bruising to right palm on thenar eminence. mild pain with palpation. 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 no deformity. 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 He denies any other injury causing him pain or distress enough to require imaging or further care. advised to use ice or nsaids as needed for contusion to right palm and thigh. check with [facility] or employer if having more problems/concerns. Departure Impression Primary Impression: Closed head injury without loss of consciousness Qualified Codes: S09.90XA - Unspecified injury of head, initial encounter Additional Impressions: Contusion of right hand, initial encounter Contusion of right thigh, initial encounter Fall Qualified Codes: W19.XXXA - Unspecified fall, initial encounter Disposition: 01 HOME, SELF-CARE Condition: Stable Departure-Patient Inst. Decision time for Depature: 16:13 Referrals: RONAL CAMARGO MD (PCP/Family) Primary Care Physician Patient Instructions: Closed Head Injury (DC), Contusion (DC), Minor Head Injury (DC) Add. Discharge Instructions: Follow up with Occupational health as needed or directed by your employer for continued problems or if not improving Get plenty of rest and stay well hydrated over the weekend and return to work on Thursday May use ice 15-20 minutes every few hours as needed for pain and swelling. You may use Ibuprofen or Acetaminophen if needed for pain ANDREWS HICKS MD August 06, 2018 16:17
--- OUTSIDE RECORDS SUMMARY | 2018-08-06 16:23 | XMS REPORT ---
Author Author Migration, Doctor Organization [facility] Address Unknown Phone Unavailable Care Team Providers Care Sand Mixer Machine Name Role Phone Migration, Doctor Unavailable Unavailable PROBLEMS Type Condition ICD9-CM Code [id number] Code Onset Dates Condition Status SNOMED Code Problem Arthritis M19.90 Active 4997183 Problem Pure hypercholesterolemia E78.00 Active 654667000 Problem Other chronic pain G89.29 Active 97217667 Problem Chronic kidney disease, unspecified CKD stage N18.9 Active 729609702 Problem Hypertension I10 Active 57131150 Problem Urinary incontinence R32 Active 781578748 Problem Back pain M54.9 Active 007032998 Problem Prostatism N40.0 Active 79417490 Problem Right inguinal hernia K40.90 Active 684678458 Problem Functional diarrhea K59.1 Active 99876538 Problem Acute systolic congestive heart failure I50.21 Active 288915326 ALLERGIES No Information ENCOUNTERS Encounter Location Date Diagnosis [facility] [id number] [place] [address] May, Viral upper respiratory tract infection J06.9 [facility] [place] [address], [place] [address] May, Back pain M54.9 [facility] [place] [id number] [place] [address] Apr, Back pain M54.9 [facility] [place] [id number] [place] [address] Mar, Back pain M54.9 [facility] [place] [id number] [place] [address] Mar, Urinary incontinence R32 [facility] [place] [id number] [place] [address] Feb, Urinary incontinence R32 and Prostatism N40.0 [facility] [place] [address], [place] [address] Feb, [facility] [place] [id number] [place] [address] Feb, Hypertension I10 [facility] [place] [id number] [place] [address] Feb, Hypertension I10 [facility] [place] [id number] [place] [address] Feb, Back pain M54.9 [facility] [place] [id number] [place] [address] Jan, Back pain M54.9 [facility] [place] [id number] [place] [address] Jan, Back pain M54.9 [facility] [place] [id number] [place] [address] Jan, Chronic kidney disease, unspecified CKD stage N18.9 [facility] [place] [id number] [place] [address] Jan, Chronic kidney disease, unspecified CKD stage N18.9 [facility] [place] [id number] [place] [address] Jan, Acute systolic congestive heart failure I50.21 ; Hypertension I10 and Back pain M54.9 [facility] [place] [address], [place] [address] Dec, [facility] [place] [id number] [place] [address] Dec, [facility] [place] [id number] [place] [address] Dec, [facility] [place] [id number] [place] [address] Dec, [facility] [place] [id number] [place] [address] 19 Dec, 2017 Right inguinal hernia K40.90 and Edema, unspecified type R60.9 [facility] [place] [address] [address] 10 Dec, 2017 Back pain M54.9 [facility] [place] [address] [address] Nov, Back pain M54.9 [facility] [place] [address] [address] Oct, Back pain M54.9 [facility] [place] [address] [address] Oct, [facility] [place] [address] [address] Sep, Back pain M54.9 [facility] [place] [address] [address] Aug, Back pain M54.9 ; Prostatism N40.0 ; Functional diarrhea K59.1 and Right inguinal hernia K40.90 [facility] [place] [address] [address] July, Other chronic pain G89.29 [facility] [place] [id number] [place] [address] Jun, Other chronic pain G89.29 [facility] [place] [id number] [place] [address] May, Other chronic pain G89.29 [facility] [place] [id number] [place] [address] Apr, Other chronic pain G89.29 [facility] [place] [id number] [place] [address] Mar, Other chronic pain G89.29 [facility] [place] [address] [address] Feb, Other chronic pain G89.29 [facility] [id number] [place] [address] Feb, Acute upper respiratory infection, unspecified J06.9 and Other viral agents as the cause of diseases classified elsewhere B97.89 [facility] [place] [id number] [place] [address] Jan, [facility] [place] [id number] [place] [address] Jan, Back pain M54.9 and Prostatism N40.0 [facility] [place] [address] [address] Jan, Other chronic pain G89.29 [facility] [place] [id number] [place] [address] Dec, [facility] [place] [id number] [place] [address] Dec, Other chronic pain G89.29 [facility] [place] [id number] [place] [address] Nov, Other chronic pain G89.29 [facility] [place] [id number] [place] [address] Nov, Encounter for immunization Z23 [facility] [place] [id number] [place] [address] Nov, Other chronic pain G89.29 [facility] [place] [id number] [place] [address] Oct, Other chronic pain G89.29 [facility] [place] [id number] [place] [address] Oct, Back pain M54.9 [facility] [place] [id number] [place] [address] Sep, Back pain M54.9 [facility] [place] [id number] [place] [address] Aug, [facility] [place] [id number] [place] [address] Aug, Back pain M54.9 [facility] [place] [id number] [place] [address] July, Back pain M54.9 [facility] [place] [address] [address] Jun, Weight loss R63.4 and Postural hypotension I95.1 [place] [address] [address] Jun, Back pain M54.9 [facility] [place] [id number] [place] [address] May, Back pain M54.9 [facility] [place] [address] [address] Apr, Back pain M54.9 [facility] [place] [id number] [place] [address] Apr, Pure hypercholesterolemia E78.00 [facility] [place] [id number] [place] [address] Apr, Hypertension I10 ; Back pain M54.9 ; Urge incontinence of urine N39.41 and [place] L84 [facility] [place] [id number] [place] [address] Mar, [facility] [place] [id number] [place] [address] Mar, Other chronic pain G89.29 [facility] [place] [id number] [place] [address] Feb, [facility] [place] [id number] [place] [address] Jan, [facility] [place] [id number], [place] [address] Dec, [facility] [place] [id number] [place] [address] 28 Nov, 2015 [facility] [place] [id number] [place] [address] 05 Oct, 2015 [facility] [place] [id number] [place] [address] Sep, Back pain M54.9 [facility] [place] [id number] [place] [address] 17 Aug, 2015 Back pain M54.9 and Hypertension I10 [facility] [id number] [place] [address] 13 Aug, 2015 Low back pain M54.5 and Other chronic pain G89.29 [facility] [place] [id number] [place] [address] Aug, Back pain M54.9 [facility] [place] [id number] [place] [address] July, Back pain M54.9 [facility] [place] [id number] [place] [id number] 06 Jun, 2015 Back pain M54.9 [facility] [place] [id number] [place] [address] May, Back pain M54.9 [facility] [place] [id number] [place] [address] 04 Apr, 2015 Back pain M54.9 [facility] [place] [id number] [place] [address] Mar, Back pain M54.9 [facility] [place] [id number] [place] [address] 17 Feb, 2015 Prostatitis N41.9 ; Arthritis M19.90 and Hypertension I10 [facility] [place] [id number] [place] [address] Feb, [place] [id number] [place] [address] Jan, [facility] [place] [id number] [place] [address] Dec, Encounter for immunization Z23 [place] [address] [address] Dec, [place] [id number] [place] [address] Dec, Eye pain H57.10 [place] [address] [address] Dec, Contusion of left leg S80.12XA and Right shoulder injury S49.91XA [place] [address] [address] Dec, Cellulitis L03.90 ; Back pain M54.9 ; Urinary incontinence R32 and Need for kgjdgdyhng-cfcryva-tekntvnid (Tdap) vaccine Z23 [place] [id number] [place] [address] Nov, Need for prophylactic vaccination with tetanus-diphtheria (TD) V06.5 [place] [id number] [place] [address] Nov, [place] [id number] [place] [address] Oct, [place] [id number] [place] [address] Sep, [place] [id number] [place] [address] Sep, [place] [id number] [place] [address] Aug, [place] [address] [place] [address] July, [facility] [place] [facility] [address] [id number] [place] [address] July, [facility] [place] [facility] [address] [id number] [place] [address] Jun, [facility] [place] [facility] [address] [id number] [place] [address] Jun, [facility] [place] [facility] [address] [id number] [place] [address] May, [facility] [place] [facility] [address] [id number] [place] [address] May, [facility] [place] [facility] [address] [id number] [place] [address] Apr, [facility] [place] [facility] [address] [id number] [place] [address] Apr, [facility] [place] [facility] [address] [id number] [place] [address] Mar, [facility] [place] [facility] [address] [id number] [place] [address] Mar, [facility] [place] [facility] [address] [id number] [place] [address] Mar, [facility] [place] [facility] [address] [id number] [place] [address] Mar, [facility] [place] [facility] [address] [id number] [place] [address] Mar, [facility] [place] [facility] [address] [id number] [place] [address] Mar, [facility] [place] [facility] [address] [id number] [place] [address] Mar, [facility] [place] [facility] [address] [id number] [place] [address] Mar, [facility] [place] [facility] [address] [id number] [place] [address] Mar, [facility] [place] [facility] [address] [id number] [place] [address] Mar, [facility] [place] [facility] [address] [id number] [place] [address] Mar, [facility] [place] [facility] [address] [id number] [place] [address] Mar, [facility] [place] [facility] [address] [id number] [place] [address] Mar, [facility] [place] [facility] [address] [id number] [place] [address] Mar, [facility] [place] [facility] [address] [id number] [place] [address] Feb, [facility] [place] [facility] [address] [id number] [place] [address] Feb, [facility] [place] [facility] [address] [id number] [place] [address] Feb, [facility] [place] [facility] [address] [id number] [place] [address] Feb, [facility] [place] [facility] [address] [id number] [place] [address] Feb, [facility] [place] [facility] [address] [id number], [place] [address] Feb, [facility] [place] [facility] [address] [id number] [place] [address] Jan, [facility] [place] [facility] [address] [id number] [place] [address] Jan, [facility] [place] [facility] [address] [id number] [place] [address] Dec, [facility] [place] [facility] [address] [id number], [place] [address] Dec, [facility] [place] [facility] [address] [id number] [place] [address] Dec, [facility] [place] [facility] [address] [id number] [place] [address] Dec, [facility] [place] [facility] [address] [id number] [place] [address] Dec, [facility] [place] [facility] [address] [id number] [place] [address] Dec, [facility] [place] [facility] [address] [id number] [place] [address] Nov, [facility] [place] [facility] [address] [id number] [place] [address] Nov, [facility] [place] [facility] [address] [id number] [place] [address] Oct, [facility] [place] [facility] [address] [id number] [place] [address] Oct, [facility] [place] [facility] [address] [id number] [place] [address] Sep, [facility] [place] [facility] [address] [id number] [place] [address] Sep, [facility] [place] [facility] [address] [id number] [place] [address] Sep, [facility] [place] [facility] [address] [id number] [place] [address] Sep, [facility] [place] [facility] [address] [id number] [place] [address] July, [facility] [place] [facility] [address] [id number] [place] [address] July, [facility] [place] [facility] [address] [id number] [place] [address] July, [facility] [place] [facility] [address] [id number] [place] [address] July, [facility] [address] [id number] [place] [address] Feb, [facility] [place] [facility] [address] [id number] [place] [address] Feb, [facility] [address] [id number] [place] [address] Jan, [facility] [place] [facility] [address] [id number] [place] [address] Jan, [facility] [address] [id number] [place] [address] Jan, [facility] [address] [id number] [place] [address] Jan, [facility] [address] [id number] [place] [address] Nov, [facility] [address] [id number] [place] [address] Aug, [facility] [address] [id number] [place] [address] July, [facility] [address] [id number] [place] [address] Jun, [facility] [place] [facility] [address] [id number] [place] [address] Apr, [facility] [address] [id number] [place] [address] Mar, [facility] [place] [facility] [address] [id number] [place] [address] Mar, [facility] [place] [facility] [address] [id number] [place] [address] Jan, [facility] [place] [facility] [address] [id number] [place] [address] Jan, [facility] [place] [facility] [address] [id number] [place] [address] Jan, [facility] [place] [facility] [address] [id number] [place] [address] Jan, [facility] [place] [facility] [address] [id number] [place] [address] Dec, [facility] [place] [facility] [address] [id number] [place] [address] Dec, [facility] [place] [facility] [address] [id number] [place] [address] Dec, [facility] [place] [facility] [address] [id number] [place] [address] Dec, [facility] [place] [facility] [address] [id number] [place] [address] Nov, [facility] [place] [facility] [address] [id number], [place] [address] Oct, [facility] [place] [facility] [address] [id number], [place] [address] July, [facility] [place] [facility] [address] [id number], [place] [address] Mar, [facility] [place] [facility] [address] [id number], [place] [address] Jan, [facility] [place] [facility] [address] [id number], [place] [address] Jan, [facility] [place] [facility] [address] [id number], [place] [address] Dec, [facility] [place] [facility] [address] [id number], [place] [address] Dec, [facility] [place] [facility] [address] [id number], [place] [address] Dec, [facility] [place] [facility] [address] [id number], [place] [address] 14 Nov, 2010 [facility] [place] [address] [facility] [id number], [place] [address] July, [facility] [place] [address] [facility] [id number], [place] [address] 14 Jun, 2010 [facility] [place] [address] [facility] [id number], [place] [address] 14 May, 2010 [facility] [place] [address] [facility] [id number], [place] [address] 14 Apr, 2010 [facility] [place] [id number], [place] [address] 10 Apr, 2010 [facility] [place] [id number], [place] [address] 14 Mar, 2010 [facility] [place] [id number], [place] [address] Jan, [facility] [place] [address] [id number], [place] [address] Dec, [facility] [place] [address] [id number], [place] [address] 17 Jun, 2009 [facility] [place] [address] [id number], [place] [address] 13 Jun, 2009 IMMUNIZATIONS No Known Immunizations SOCIAL HISTORY Never Assessed REASON FOR VISIT EMR-[facility] PLAN OF CARE VITAL SIGNS MEDICATIONS No Known Medications RESULTS No Results PROCEDURES No Known procedures INSTRUCTIONS MEDICATIONS ADMINISTERED No Known Medications MEDICAL (GENERAL) HISTORY Type Description Date Medical History prostatism Medical History chronic pain Medical History hypertension Medical History heart failure Surgical History Hernia 02/09/18 Hospitalization History Cardiomyopathy-[facility] 01/12/18 Hospitalization History heart failure 01/07 Hospitalization History Heart 01/2018
--- OUTSIDE RECORDS SUMMARY | 2018-08-06 16:23 | XMS REPORT ---
Author Author Migration, Doctor Organization [facility] Address Unknown Phone Unavailable Care Team Providers Care Plug Machine Operator Name Role Phone Migration, Doctor Unavailable Unavailable PROBLEMS Type Condition ICD9-CM Code BON74-FH Code Onset Dates Condition Status SNOMED Code Problem Arthritis M19.90 Active 6809488 Problem Pure hypercholesterolemia E78.00 Active 901016614 Problem Other chronic pain G89.29 Active 54345404 Problem Chronic kidney disease, unspecified CKD stage N18.9 Active 811954797 Problem Hypertension I10 Active 03127497 Problem Urinary incontinence R32 Active 657145761 Problem Back pain M54.9 Active 867877365 Problem Prostatism N40.0 Active 33569650 Problem Right inguinal hernia K40.90 Active 687792112 Problem Functional diarrhea K59.1 Active 09173924 Problem Acute systolic congestive heart failure I50.21 Active 744082553 ALLERGIES No Information ENCOUNTERS Encounter Location Date Diagnosis [facility] [id number] [place] [address] May, Viral upper respiratory tract infection J06.9 [facility] [id number] [place] [address] May, Back pain M54.9 [facility] [address] [address] Apr, Back pain M54.9 [facility] [id number] [place] [address] Mar, Back pain M54.9 [facility] [id number] [place] [address] Mar, Urinary incontinence R32 [facility] [id number] [place] [address] Feb, Urinary incontinence R32 and Prostatism N40.0 [facility] [id number] [address] Feb, [facility] [id number] [place] [address] Feb, Hypertension I10 [facility] [id number] [place] [address] Feb, Hypertension I10 [facility] [id number] [place] [address] Feb, Back pain M54.9 [facility] [id number] [place] [address] Jan, Back pain M54.9 [facility] [id number] [place] [address] Jan, Back pain M54.9 [facility] [id number] [place] [address] Jan, Chronic kidney disease, unspecified CKD stage N18.9 [facility] [id number] [place] [address] Jan, Chronic kidney disease, unspecified CKD stage N18.9 [facility] [id number] [place] [address] Jan, Acute systolic congestive heart failure I50.21 ; Hypertension I10 and Back pain M54.9 [facility] [id number] [address] Dec, [facility] [id number] [place] [address] Dec, [facility] [id number] [place] [address] Dec, [facility] [id number] [place] [address] Dec, [facility] [id number] [place] [address] 19 Dec, 2017 Right inguinal hernia K40.90 and Edema, unspecified type R60.9 [facility] [address] [address] 10 Dec, 2017 Back pain M54.9 [facility] [address] [address] Nov, Back pain M54.9 [facility] [address] [address] Oct, Back pain M54.9 [facility] [address] [address] Oct, [facility] [address] [address] Sep, Back pain M54.9 [facility] [address] [address] Aug, Back pain M54.9 ; Prostatism N40.0 ; Functional diarrhea K59.1 and Right inguinal hernia K40.90 [facility] [address] [address] July, Other chronic pain G89.29 [facility] [id number] [place] [address] Jun, Other chronic pain G89.29 [facility] [id number] [place] [address] May, Other chronic pain G89.29 [facility] [id number] [place] [address] Apr, Other chronic pain G89.29 [facility] [id number] [place] [address] Mar, Other chronic pain G89.29 [facility] [address] [address] Feb, Other chronic pain G89.29 [facility] [id number] [place] [address] Feb, Acute upper respiratory infection, unspecified J06.9 and Other viral agents as the cause of diseases classified elsewhere B97.89 [facility] [id number] [place] [address] Jan, [facility] [id number] [place] [address] Jan, Back pain M54.9 and Prostatism N40.0 [facility] [address] [address] Jan, Other chronic pain G89.29 [facility] [id number] [place] [address] Dec, [facility] [id number] [place] [address] Dec, Other chronic pain G89.29 [facility] [id number] [place] [address] Nov, Other chronic pain G89.29 [facility] [id number] [place] [address] Nov, Encounter for immunization Z23 [facility] [id number] [place] [address] Nov, Other chronic pain G89.29 [facility] [id number] [place] [address] Oct, Other chronic pain G89.29 [facility] [id number] [place] [address] Oct, Back pain M54.9 [facility] [id number] [place] [address] Sep, Back pain M54.9 [facility] [id number] [place] [address] Aug, [facility] [id number] [place] [address] Aug, Back pain M54.9 [facility] [id number] [place] [address] July, Back pain M54.9 [facility] [address] [address] Jun, Weight loss R63.4 and Postural hypotension I95.1 [address] [address] [address] Jun, Back pain M54.9 [facility] [id number] [place] [address] May, Back pain M54.9 [facility] [address] [address] Apr, Back pain M54.9 [facility] [id number] [place] [address] Apr, Pure hypercholesterolemia E78.00 [facility] [id number] [place] [address] Apr, Hypertension I10 ; Back pain M54.9 ; Urge incontinence of urine N39.41 and [place] L84 [facility] [id number] [place] [address] Mar, [facility] [id number] [place] [address] Mar, Other chronic pain G89.29 [facility] [id number] [place] [address] Feb, [facility] [id number] [place] [address] Jan, [facility] [id number] [address] Dec, [facility] [id number] [place] [address] 28 Nov, 2015 [facility] [id number] [place] [address] 05 Oct, 2015 [facility] [id number] [place] [address] Sep, Back pain M54.9 [facility] [id number] [place] [address] 17 Aug, 2015 Back pain M54.9 and Hypertension I10 [facility] [id number] [place] [address] 13 Aug, 2015 Low back pain M54.5 and Other chronic pain G89.29 [facility] [id number] [place] [address] Aug, Back pain M54.9 [facility] [id number] [place] [address] July, Back pain M54.9 [facility] [id number] [place] [address] 06 Jun, 2015 Back pain M54.9 [facility] [id number] [place] [address] May, Back pain M54.9 [facility] [id number] [place] [address] 04 Apr, 2015 Back pain M54.9 [facility] [id number] [place] [address] Mar, Back pain M54.9 [facility] [id number] [place] [address] 17 Feb, 2015 Prostatitis N41.9 ; Arthritis M19.90 and Hypertension I10 [facility] [id number] [place] [address] Feb, [address] [id number] [place] [address] Jan, [facility] [id number] [place] [address] Dec, Encounter for immunization Z23 [address] [address] [address] Dec, [place] [id number] [place] [address] Dec, Eye pain H57.10 [address] [address] [address] Dec, Contusion of left leg S80.12XA and Right shoulder injury S49.91XA [address] [address] [address] Dec, Cellulitis L03.90 ; Back pain M54.9 ; Urinary incontinence R32 and Need for orefgreysj-krtnofj-bczxzcugn (Tdap) vaccine Z23 [place] [id number] [place] [address] Nov, Need for prophylactic vaccination with tetanus-diphtheria (TD) V06.5 [place] [id number] [place] [address] Nov, [place] [id number] [place] [address] Oct, [place] [id number] [place] [address] Sep, [place] [id number] [place] [address] Sep, [place] [id number] [place] [address] Aug, [place] [address] [place] [address] July, [facility] [place] [facility] [address] [id number] [place] [address] July, [facility] [place] [facility] [address] [id number] [place] [address] Jun, [facility] [place] [facility] [address] [id number] [place] [address] Jun, [facility] [place] [facility] [address] [id number] [place] [address] May, [facility] [place] [facility] [address] [id number] [place] [address] May, [facility] [place] [facility] [address] [id number] [place] [address] Apr, [facility] [place] [facility] [address] [id number] [place] [address] Apr, [facility] [place] [facility] [address] [id number] [place] [address] Mar, [facility] [place] [facility] [address] [id number] [place] [address] Mar, [facility] [place] [facility] [address] [id number] [place] [address] Mar, [facility] [place] [facility] [address] [id number] [place] [address] Mar, [facility] [place] [facility] [address] [id number] [place] [address] Mar, [facility] [place] [facility] [address] [id number] [place] [address] Mar, [facility] [place] [facility] [address] [id number] [place] [address] Mar, [facility] [place] [facility] [address] [id number] [place] [address] Mar, [facility] [place] [facility] [address] [id number] [place] [address] Mar, [facility] [place] [facility] [address] [id number] [place] [address] Mar, [facility] [place] [facility] [address] [id number] [place] [address] Mar, [facility] [place] [facility] [address] [id number] [place] [address] Mar, [facility] [place] [facility] [address] [id number] [place] [address] Mar, [facility] [place] [facility] [address] [id number] [place] [address] Mar, [facility] [place] [facility] [address] [id number] [place] [address] Feb, [facility] [place] [facility] [address] [id number] [place] [address] Feb, [facility] [place] [facility] [address] [id number] [place] [address] Feb, [facility] [place] [facility] [address] [id number] [place] [address] Feb, [facility] [place] [facility] [address] [id number] [place] [address] Feb, [facility] [place] [facility] [address] [id number], [place] [address] Feb, [facility] [place] [facility] [address] [id number] [place] [address] Jan, [facility] [place] [facility] [address] [id number] [place] [address] Jan, [facility] [place] [facility] [address] [id number] [place] [address] Dec, [facility] [place] [facility] [address] [id number], [place] [address] Dec, [facility] [place] [facility] [address] [id number] [place] [address] Dec, [facility] [place] [facility] [address] [id number] [place] [address] Dec, [facility] [place] [facility] [address] [id number] [place] [address] Dec, [facility] [place] [facility] [address] [id number] [place] [address] Dec, [facility] [place] [facility] [address] [id number] [place] [address] Nov, [facility] [place] [facility] [address] [id number] [place] [address] Nov, [facility] [place] [facility] [address] [id number] [place] [address] Oct, [facility] [place] [facility] [address] [id number] [place] [address] Oct, [facility] [place] [facility] [address] [id number] [place] [address] Sep, [facility] [place] [facility] [address] [id number] [place] [address] Sep, [facility] [place] [facility] [address] [id number] [place] [address] Sep, [facility] [place] [facility] [address] [id number] [place] [address] Sep, [facility] [place] [facility] [address] [id number] [place] [address] July, [facility] [place] [facility] [address] [id number] [place] [address] July, [facility] [place] [facility] [address] [id number] [place] [address] July, [facility] [place] [facility] [address] [id number] [place] [address] July, [facility] [address] [id number] [place] [address] Feb, [facility] [place] [facility] [address] [id number] [place] [address] Feb, [facility] [address] [id number] [place] [address] Jan, [facility] [place] [facility] [address] [id number] [place] [address] Jan, [facility] [address] [id number] [place] [address] Jan, [facility] [address] [id number] [place] [address] Jan, [facility] [address] [id number] [place] [address] Nov, [facility] [address] [id number] [place] [address] Aug, [facility] [address] [id number] [place] [address] July, [facility] [address] [id number] [place] [address] Jun, [facility] [place] [facility] [address] [id number] [place] [address] Apr, [facility] [address] [id number] [place] [address] Mar, [facility] [place] [facility] [address] [id number] [place] [address] Mar, [facility] [place] [facility] [address] [id number] [place] [address] Jan, [facility] [place] [facility] [address] [id number] [place] [address] Jan, [facility] [place] [facility] [address] [id number] [place] [address] Jan, [facility] [place] [facility] [address] [id number] [place] [address] Jan, [facility] [place] [facility] [address] [id number] [place] [address] Dec, [facility] [place] [facility] [address] [id number] [place] [address] Dec, [facility] [place] [facility] [address] [id number] [place] [address] Dec, [facility] [place] [facility] [address] [id number] [place] [address] Dec, [facility] [place] [facility] [address] [id number] [place] [address] Nov, [facility] [place] [facility] [address] [id number], [place] [address] Oct, [facility] [place] [facility] [address] [id number], [place] [address] July, [facility] [place] [facility] [address] [id number], [place] [address] Mar, [facility] [place] [facility] [address] [id number], [place] [address] Jan, [facility] [place] [facility] [address] [id number], [place] [address] Jan, [facility] [address] [id number], [place] [address] Dec, [facility] [address] [id number], [place] [address] Dec, [facility] [address] [id number], [place] [address] Dec, [facility] [address] [id number], [place] [address] 14 Nov, 2010 [facility] [id number], [place] [address] July, [facility] [id number], [place] [address] Jun, [facility] [id number], [place] [address] May, [facility] [id number], [place] [address] Apr, [facility] [id number], [place] [address] Apr, [facility] [id number], [place] [address] Mar, [facility] [id number], [place] [address] Jan, [facility] [id number], [place] [address] Dec, [facility] [id number], [place] [address] Jun, [facility] [address] [id number], [place] [address] Jun, IMMUNIZATIONS No Known Immunizations SOCIAL HISTORY Never Assessed REASON FOR VISIT [facility] PLAN OF CARE VITAL SIGNS MEDICATIONS Medication Instructions Dosage Frequency Start Date End Date Duration Status Hydrocodone-Acetaminophen 5-325 mg 1 tablet by Oral route 2 times per day PRN 11 May, 2014 Active Flexeril 10 mg 1 tablet by Oral route 1 time per day PRN muscle spasm. take at bedtime Mar, Active Gabapentin 100 mg 1 Capsule by Oral route 3 times per day start w/ 1 per dayx3 days, 2 per day x3 days, then 3 per day Mar, Active Omnicef 300 mg 2 capsule by Oral route 1 time per day for 10 day(s) Feb, Active Phenergan with Codeine 10 mg-6.25 mg/5 mL SI mL orally every 6 hours for 5 day(s) PRN(as needed for cough) Mar, Active RESULTS No Results PROCEDURES No Known procedures INSTRUCTIONS MEDICATIONS ADMINISTERED No Known Medications MEDICAL (GENERAL) HISTORY Type Description Date Medical History prostatism Medical History chronic pain Medical History hypertension Medical History heart failure Surgical History Hernia 02/09/18 Hospitalization History Cardiomyopathy-[facility] 01/12/18 Hospitalization History heart failure 01/07 Hospitalization History Heart 01/2018
--- OUTSIDE RECORDS SUMMARY | 2018-08-06 16:24 | XMS REPORT ---
Author Author RONAL CAMARGO Organization [facility] Address [address] [place] [address] Care Team Providers Care Rate Engineer Name Role Phone RONAL CAMARGO Unavailable PROBLEMS Type Condition ICD9-CM Code XKR14-DD Code Onset Dates Condition Status SNOMED Code Problem Hypertension I10 Active 83313108 Problem Pure hypercholesterolemia E78.00 Active 535429617 Problem Arthritis M19.90 Active 2512357 Problem Back pain M54.9 Active 610602474 Problem Chronic kidney disease, unspecified CKD stage N18.9 Active 325537070 Problem Acute systolic congestive heart failure I50.21 Active 490344180 Problem Prostatism N40.0 Active 50465355 Problem Other chronic pain G89.29 Active 83263699 Problem Right inguinal hernia K40.90 Active 214860851 Problem Functional diarrhea K59.1 Active 57612144 ALLERGIES No Known Allergies ENCOUNTERS Encounter Location Date Diagnosis [place] [address] [address] Jan, Back pain M54.9 [facility] [address] [place] [id number] [place] [address] Jan, Back pain M54.9 [facility] [id number] [place] [address] Jan, Chronic kidney disease, unspecified CKD stage N18.9 [facility] [address] [address] Jan, Chronic kidney disease, unspecified CKD stage N18.9 [facility] [id number] [place] [address] Jan, Acute systolic congestive heart failure I50.21 ; Hypertension I10 and Back pain M54.9 [facility] [id number] [place] [address] Dec, [facility] [address] [address] Dec, [facility] [id number] [place] [address] Dec, [facility] [address] [address] Dec, [facility] [address] [address] Dec, Right inguinal hernia K40.90 and Edema, unspecified type R60.9 [facility] [address] [id number] [place] [address] Dec, Back pain M54.9 [facility] [address] [address] Nov, Back pain M54.9 [facility] [id number] [place] [address] Oct, Back pain M54.9 [facility] [address] [address] Oct, [facility] [id number] [place] [address] Sep, Back pain M54.9 [facility] [id number] [place] [address] Aug, Back pain M54.9 ; Prostatism N40.0 ; Functional diarrhea K59.1 and Right inguinal hernia K40.90 [facility] [id number] [place] [address] July, Other chronic pain G89.29 [facility] [id number] [place] [address] Jun, Other chronic pain G89.29 [facility] [id number] [place] [address] May, Other chronic pain G89.29 [facility] [address] [address] Apr, Other chronic pain G89.29 [facility] [id number] [place] [address] Mar, Other chronic pain G89.29 [facility] [address] [address] Feb, Other chronic pain G89.29 [facility] [address] [address] Feb, Acute upper respiratory infection, unspecified J06.9 and Other viral agents as the cause of diseases classified elsewhere B97.89 [facility] [address] [address] Jan, [facility] [address] [id number] [place] [address] Jan, Back pain M54.9 and Prostatism N40.0 [facility] [address] [address] [id number] [place] [address] Jan, Other chronic pain G89.29 [facility] [id number] [place] [address] Dec, [facility] [id number] [place] [address] Dec, Other chronic pain G89.29 [facility] [address] [id number] [place] [address] Nov, Other chronic pain G89.29 [facility] [id number] [place] [address] Nov, Encounter for immunization Z23 [facility] [address] [address] Nov, Other chronic pain G89.29 [facility] [address] [address] [id number] [place] [address] Oct, Other chronic pain G89.29 [facility] [address] [place] [address] [id number] [place] [address] Oct, Back pain M54.9 [facility] [address] [address] Sep, Back pain M54.9 [place] [address] [address] Aug, [place] [address] [address] Aug, Back pain M54.9 [place] [address] [address] July, Back pain M54.9 [place] [address] [place] [id number] [place] [address] 24 Jun, 2016 Weight loss R63.4 and Postural hypotension I95.1 [place] [address] [address] Jun, Back pain M54.9 [place] [address] [address] May, Back pain M54.9 [place] [address] [place] [id number] [place] [address] Apr, Back pain M54.9 [place] [address] [address] [id number] [place] [address] Apr, Pure hypercholesterolemia E78.00 [place] [address] [place] [id number] [place] [address] 06 Apr, 2016 Hypertension I10 ; Back pain M54.9 ; Urge incontinence of urine N39.41 and [place] L84 [place] [address] [id number] [address] Mar, [facility] [address] [facility] [id number] [place] [address] Mar, Other chronic pain G89.29 [facility] [address] [facility] [id number], [place] [address] Feb, [facility] [address] [facility] [id number] [place] [address] Jan, [facility] [address] [facility] [id number] [place] [address] Dec, [facility] [address] [facility] [id number] [place] [address] Nov, [facility] [address] [place] [id number] [place] [address] Oct, [facility] [address] [place] [id number] [place] [address] Sep, Back pain M54.9 [facility] [address] [place] [id number] [place] [address] 17 Aug, 2015 Back pain M54.9 and Hypertension I10 [facility] [address] [place] [id number] [address] 13 Aug, 2015 Low back pain M54.5 and Other chronic pain G89.29 [facility] [id number] [place] [address] Aug, Back pain M54.9 [facility] [address] [facility] [id number], [place] [address] July, Back pain M54.9 [facility] [address] [id number] [address] 06 Jun, 2015 Back pain M54.9 [facility] [address] [id number] [address] May, Back pain M54.9 [facility] [address] [place] [address] [id number] [place] [address] Apr, Back pain M54.9 [place] [address] [place] [id number] [place] [address] Mar, Back pain M54.9 [place] [address] [place] [id number] [place] [address] Feb, Prostatitis N41.9 ; Arthritis M19.90 and Hypertension I10 [place] [address] [address] Feb, [place] [address] [address] Jan, [place] [address] [address] Dec, Encounter for immunization Z23 [place] [address] [address] Dec, [place] [address] [address] Dec, Eye pain H57.10 [place] [address] [place] [id number] [place] [address] Dec, Contusion of left leg S80.12XA and Right shoulder injury S49.91XA [place] [address] [place] [id number] [place] [address] Dec, Cellulitis L03.90 ; Back pain M54.9 ; Urinary incontinence R32 and Need for kvwdjqcgjd-pjgxuuj-fbsqkvknh (Tdap) vaccine Z23 [place] [address] [place] [id number] [place] [address] 30 Nov, 2014 Need for prophylactic vaccination with tetanus-diphtheria (TD) V06.5 [place] [address] [place] [id number] [place] [address] Nov, [facility] [place] [facility] [address] [id number] [place] [address] Oct, [facility] [place] [facility] [address] [id number] [place] [address] Sep, [facility] [place] [facility] [address] [id number] [place] [address] Sep, [facility] [place] [facility] [address] [id number] [place] [address] Aug, [facility] [place] [facility] [address] [id number] [place] [address] July, [facility] [place] [facility] [address] [id number] [place] [address] July, [facility] [place] [facility] [address] [id number] [place] [address] Jun, [facility] [place] [facility] [address] [id number] [place] [address] Jun, [facility] [place] [facility] [address] [id number] [place] [address] May, [facility] [place] [facility] [address] [id number] [place] [address] May, [facility] [place] [facility] [address] [id number] [place] [address] Apr, [facility] [place] [facility] [address] [id number] [place] [address] Apr, [facility] [place] [facility] [address] [id number] [place] [address] Mar, [facility] [place] [facility] [address] [id number] [place] [address] Mar, [facility] [place] [facility] [address] [id number] [place] [address] Mar, [facility] [place] [facility] [address] [id number] [place] [address] Mar, [facility] [place] [facility] [address] [id number] [place] [address] Mar, [facility] [place] [facility] [address] [id number] [place] [address] Mar, [facility] [place] [facility] [address] [id number] [place] [address] Mar, [facility] [place] [facility] [address] [id number] [place] [address] Mar, [facility] [place] [facility] [address] [id number] [place] [address] Mar, [facility] [place] [facility] [address] [id number] [place] [address] Mar, [facility] [place] [facility] [address] [id number] [place] [address] Mar, [facility] [place] [facility] [address] [id number] [place] [address] Mar, [facility] [place] [facility] [address] [id number] [place] [address] Mar, [facility] [place] [facility] [address] [id number] [place] [address] Mar, [facility] [place] [facility] [address] [id number] [place] [address] Feb, [facility] [place] [facility] [address] [id number] [place] [address] Feb, [facility] [place] [facility] [address] [id number] [place] [address] Feb, [facility] [place] [facility] [address] [id number] [place] [address] Feb, [facility] [place] [facility] [address] [id number] [place] [address] Feb, [facility] [place] [facility] [address] [id number] [place] [address] Feb, [facility] [place] [facility] [address] [id number] [place] [address] Jan, [facility] [place] [facility] [address] [id number] [place] [address] Jan, [facility] [place] [facility] [address] [id number] [place] [address] Dec, [facility] [place] [facility] [address] [id number] [place] [address] Dec, [facility] [place] [facility] [address] [id number] [place] [address] Dec, [facility] [place] [facility] [address] [id number] [place] [address] Dec, [facility] [place] [facility] [address] [id number] [place] [address] Dec, [facility] [place] [facility] [address] [id number] [place] [address] Dec, [facility] [place] [facility] [address] [id number] [place] [address] Nov, [facility] [place] [facility] [address] [id number] [place] [address] Nov, [facility] [place] [facility] [address] [id number] [place] [address] Oct, [facility] [place] [facility] [address] [id number] [place] [address] Oct, [facility] [place] [facility] [address] [id number] [place] [address] Sep, [facility] [place] [facility] [address] [id number] [place] [address] Sep, [facility] [place] [facility] [address] [id number] [place] [address] Sep, [facility] [address] [id number] [place] [address] Sep, [facility] [place] [facility] [address] [id number] [place] [address] July, [facility] [place] [facility] [address] [id number] [place] [address] July, [facility] [place] [facility] [address] [id number] [place] [address] July, [facility] [place] [facility] [address] [id number] [place] [address] July, [facility] [place] [facility] [address] [id number] [place] [address] Feb, [facility] [place] [facility] [address] [id number] [place] [address] Feb, [facility] [place] [facility] [address] [id number] [place] [address] Jan, [facility] [place] [facility] [address] [id number] [place] [address] Jan, [facility] [place] [facility] [address] [id number], [place] [address] Jan, [facility] [place] [facility] [address] [id number] [place] [address] Jan, [facility] [place] [facility] [address] [id number], [place] [address] 30 Nov, 2012 [facility] [place] [facility] [address] [id number] [place] [address] Aug, [facility] [place] [facility] [address] [id number] [place] [address] July, [facility] [place] [facility] [address] [id number], [place] [address] 05 Jun, 2012 [facility] [place] [facility] [address] [id number], [place] [address] Apr, [facility] [place] [facility] [address] [id number] [place] [address] Mar, [facility] [place] [facility] [address] [facility] [id number], [place] [address] Mar, [facility] [place] [facility] [address] [facility] [id number] [place] [address] Jan, [facility] [place] [facility] [address] [id number] [place] [address] Jan, [facility] [place] [facility] [address] [facility] [id number] [place] [address], [place] [address] Jan, [facility] [place] [facility] [address] [facility] [id number] [place] [address] Jan, [facility] [place] [facility] [id number] [address] Dec, [facility] [place] [facility] [address] [facility] [id number] [place] [address] Dec, [facility] [place] [facility] [address] [id number] [address] Dec, [facility] [place] [facility] [address] [id number] [address] Dec, [facility] [place] [facility] [address] [facility] [id number], [place] [address] Nov, [facility] [place] [facility] [address] [facility] [id number], [place] [address] Oct, [facility] [place] [facility] [address] [id number], [place] [address] July, [facility] [place] [facility] [address] [facility] [id number], [place] [address] Mar, [facility] [place] [facility] [address] [id number] [address] Jan, [facility] [place] [facility] [address] [id number] [place] [address] 17 Jan, 2011 [facility] [address] [facility] [id number], [place] [address] Dec, [facility] [address] [facility] [id number] [place] [address] 17 Dec, 2010 [facility] [address] [facility] [id number], [place] [address] 17 Dec, 2010 [facility] [address] [id number] [place] [address] 14 Nov, 2010 [facility] [address] [facility] [id number] [place] [address] July, [facility] [address] [facility] [id number], [place] [address] 14 Jun, 2010 [facility] [address] [facility] [id number], [place] [address] 14 May, 2010 [facility] [address] [facility] [id number], [place] [address] 14 Apr, 2010 [facility] [address] [facility] [id number], [place] [address] 10 Apr, 2010 [facility] [address] [facility] [id number], [place] [address] 14 Mar, 2010 [facility] [address] [facility] [id number], [place] [address] Jan, [facility] [address] [facility] [id number], [place] [address] Dec, [facility] [address] [facility] [id number], [place] [address] Jun, [facility] [address] [facility] [id number], [place] [address] 13 Jun, 2009 IMMUNIZATIONS No Known Immunizations SOCIAL HISTORY Never Assessed REASON FOR VISIT [facility] follow up [place] , wearing heart monitor [place] , daughter is help ing with medications and would like to be able to call in for refills and pick u cher [place] PLAN OF CARE Activity Details Follow Up 4 Weeks Reason: VITAL SIGNS Height 66 in 2018-01-21 Weight 169 lbs 2018-01-21 Temperature 98.1 degrees Fahrenheit 2018-01-21 Heart Rate 62 bpm 2018-01-21 Respiratory Rate 20 2018-01-21 BMI 27.27 kg/m2 2018-01-21 Blood pressure systolic 130 mmHg 2018-01-21 Blood pressure diastolic 78 mmHg 2018-01-21 MEDICATIONS Medication Instructions Dosage Frequency Start Date End Date Duration Status Metoprolol Succinate 25 MG Orally Once a day 1 capsule 24h 30 day(s) Active Hydrocodone-Acetaminophen 5-325 MG Orally 3 times a day 1 tablet 8h 11 Dec, 2017 28 days Active Losartan Potassium 50 MG Orally Once a day 1 tablet 24h 30 day(s) Active Furosemide 40 MG Orally Once a day 1 tablet 24h 30 day(s) Active Klor-Con M20 20 MEQ Orally Once a day 1 tablet with food 24h 30 day(s) Active RESULTS No Results PROCEDURES Procedure Date Ordered Result Body [facility] Jan [facility], 2018 VENIPUNCT, ROUTINE* Jan 21, 2018 [facility] VISIT ESTABLISHED PATIENT Jan 21, 2018 INSTRUCTIONS MEDICATIONS ADMINISTERED No Known Medications MEDICAL (GENERAL) HISTORY Type Description Date Medical History prostatism Medical History chronic pain Medical History hypertension Medical History heart failure Surgical History No Surgical history information Hospitalization History Cardiomyopathy-[facility] 01/12/18 Hospitalization History heart failure 01/07
--- OUTSIDE RECORDS SUMMARY | 2018-08-06 16:24 | XMS REPORT ---
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 Name Role Phone RONAL CAMARGO Unavailable PROBLEMS Type Condition ICD9-CM Code TPM21-OL Code Onset Dates Condition Status SNOMED Code Problem Hypertension I10 Active 45126242 Problem Pure hypercholesterolemia E78.00 Active 527096014 Problem Arthritis M19.90 Active 1208929 Problem Back pain M54.9 Active 022587965 Problem Chronic kidney disease, unspecified CKD stage N18.9 Active 582626141 Problem Acute systolic congestive heart failure I50.21 Active 360069100 Problem Prostatism N40.0 Active 88335513 Problem Other chronic pain G89.29 Active 85672934 Problem Right inguinal hernia K40.90 Active 587674374 Problem Functional diarrhea K59.1 Active 79682418 ALLERGIES No Information ENCOUNTERS Encounter Location Date Diagnosis [facility] [id number] [place] [address] Feb, Hypertension I10 [facility] [id number] [place] [address] Feb, Back pain M54.9 [facility] [id number] [place] [address] Jan, Back pain M54.9 [facility] [id number] [place] [address] Jan, Back pain M54.9 [facility] [id number] [place] [address] Jan, Chronic kidney disease, unspecified CKD stage N18.9 [facility] [id number] [place] [address] Jan, Chronic kidney disease, unspecified CKD stage N18.9 [facility] [id number] [place] [address] Jan, Acute systolic congestive heart failure I50.21 ; Hypertension I10 and Back pain M54.9 [facility] [id number] [place] [address] Dec, [facility] [address] [address] Dec, [facility] [id number] [place] [address] Dec, [facility] [id number] [place] [address] Dec, [facility] [address] [address] Dec, Right inguinal hernia K40.90 and Edema, unspecified type R60.9 [facility] [id number] [place] [address] Dec, Back pain M54.9 [facility] [id number] [place] [address] Nov, Back pain M54.9 [facility] [id number] [place] [address] Oct, Back pain M54.9 [facility] [id number] [place] [address] Oct, [facility] [id number] [place] [address] Sep, Back pain M54.9 [facility] [id number] [place] [address] Aug, Back pain M54.9 ; Prostatism N40.0 ; Functional diarrhea K59.1 and Right inguinal hernia K40.90 [facility] [id number] [place] [address] July, Other chronic pain G89.29 [facility] [id number] [place] [address] Jun, Other chronic pain G89.29 [facility] [id number] [place] [address] May, Other chronic pain G89.29 [facility] [id number] [place] [address] Apr, Other chronic pain G89.29 [facility] [id number] [place] [address] Mar, Other chronic pain G89.29 [facility] [id number] [place] [address] Feb, Other chronic pain G89.29 [facility] [id number] [place] [address] Feb, Acute upper respiratory infection, unspecified J06.9 and Other viral agents as the cause of diseases classified elsewhere B97.89 [facility] [id number] [place] [address] Jan, [facility] [id number] [place] [address] Jan, Back pain M54.9 and Prostatism N40.0 [facility] [id number] [place] [address] Jan, Other chronic pain G89.29 [facility] [id number] [place] [address] Dec, [facility] [id number] [place] [address] Dec, Other chronic pain G89.29 [facility] [id number] [place] [address] Nov, Other chronic pain G89.29 [facility] [id number] [place] [address] Nov, Encounter for immunization Z23 [facility] [id number] [place] [address] Nov, Other chronic pain G89.29 [facility] [address] [address] Oct, Other chronic pain G89.29 [facility] [id number] [place] [address] Oct, Back pain M54.9 [facility] [address] [address] Sep, Back pain M54.9 [facility] [id number] [place] [address] Aug, [facility] [address] [address] Aug, Back pain M54.9 [facility] [address] [address] July, Back pain M54.9 [facility] [id number] [place] [address] Jun, Weight loss R63.4 and Postural hypotension I95.1 [facility] [id number] [place] [address] 14 Jun, 2016 Back pain M54.9 [facility] [id number] [place] [address] May, Back pain M54.9 [facility] [id number] [place] [address] Apr, Back pain M54.9 [facility] [id number] [place] [address] Apr, Pure hypercholesterolemia E78.00 [facility] [id number] [place] [address] Apr, Hypertension I10 ; Back pain M54.9 ; Urge incontinence of urine N39.41 and [place] L84 [facility] [id number] [place] [address] Mar, [facility] [address] [address] Mar, Other chronic pain G89.29 [facility] [id number] [place] [address] Feb, [facility] [address] [address] Jan, [facility] [id number] [place] [address] Dec, [facility] [id number] [place] [address] Nov, [facility] [id number] [place] [address] 05 Oct, 2015 [facility] [id number] [place] [address] Sep, Back pain M54.9 [facility] [id number] [place] [address] Aug, Back pain M54.9 and Hypertension I10 [facility] [id number] [place] [address] 13 Aug, 2015 Low back pain M54.5 and Other chronic pain G89.29 [facility] [id number] [place] [address] Aug, Back pain M54.9 [facility] [id number] [place] [address] July, Back pain M54.9 [facility] [facility] [id number] [place] [address] Jun, Back pain M54.9 [place] [facility] [address] [address] May, Back pain M54.9 [place] [facility] [id number] [place] [address] Apr, Back pain M54.9 [place] [address] [address] Mar, Back pain M54.9 [place] [address] [address] Feb, Prostatitis N41.9 ; Arthritis M19.90 and Hypertension I10 [place] [address] [address] Feb, [place] [address] [address] Jan, [place] [address] [address] Dec, Encounter for immunization Z23 [place] [facility] [address] [address] Dec, [place] [id number] [place] [address] Dec, Eye pain H57.10 [place] [address] [address] Dec, Contusion of left leg S80.12XA and Right shoulder injury S49.91XA [place] [address] [address] 05 Dec, 2014 Cellulitis L03.90 ; Back pain M54.9 ; Urinary incontinence R32 and Need for nhzlptklot-ovdacxz-rhdwobosn (Tdap) vaccine Z23 [place] [address] [address] Nov, Need for prophylactic vaccination with tetanus-diphtheria (TD) V06.5 [facility] [address] [facility] [id number] [address] Nov, [facility] [id number] [address] Oct, [facility] [address] [facility] [id number], [place] [address] Sep, [facility] [address] [facility] [id number] [place] [address] Sep, [facility] [address] [address] Aug, [facility] [address] [address] July, [facility] [address] [address] July, [facility] [id number] [place] [address] Jun, [facility] [address] [address] Jun, [facility] [address] [address] May, [facility] [id number] [address] May, [facility] [id number] [address] Apr, [facility] [address] [address] Apr, [facility] [id number] [address] Mar, [facility] [id number] [place] [address] Mar, [facility] [address] [id number] [place] [address] Mar, [facility] [place] [facility] [address] [id number] [place] [address] Mar, [facility] [place] [facility] [address] [id number] [place] [address] Mar, [facility] [place] [facility] [address] [id number] [place] [address] Mar, [facility] [place] [facility] [address] [id number] [place] [address] Mar, [facility] [place] [facility] [address] [id number] [place] [address] Mar, [facility] [place] [facility] [address] [id number] [place] [address] Mar, [facility] [place] [facility] [address] [id number] [place] [address] Mar, [facility] [place] [facility] [address] [id number] [place] [address] Mar, [facility] [place] [facility] [address] [id number] [place] [address] Mar, [facility] [place] [facility] [address] [id number] [place] [address] Mar, [facility] [place] [facility] [address] [id number] [place] [address] Mar, [facility] [place] [facility] [address] [id number] [place] [address] Feb, [facility] [place] [facility] [address] [id number] [place] [address] Feb, [facility] [place] [facility] [address] [id number] [place] [address] Feb, [facility] [place] [facility] [address] [id number] [place] [address] Feb, [facility] [place] [facility] [address] [id number] [place] [address] Feb, [facility] [place] [facility] [address] [id number] [place] [address] Feb, [facility] [place] [facility] [address] [id number] [place] [address] Jan, [facility] [place] [facility] [address] [id number] [place] [address] Jan, [facility] [place] [facility] [address] [id number] [place] [address] Dec, [facility] [place] [facility] [address] [id number] [place] [address] Dec, [facility] [place] [facility] [address] [id number] [place] [address] Dec, [facility] [place] [facility] [address] [id number] [place] [address] Dec, [facility] [place] [facility] [address] [id number] [place] [address] Dec, [facility] [place] [facility] [address] [id number] [place] [address] Dec, [facility] [place] [facility] [address] [id number] [place] [address] Nov, [facility] [place] [facility] [address] [id number] [place] [address] Nov, [facility] [place] [facility] [address] [id number] [place] [address] Oct, [facility] [place] [facility] [address] [id number] [place] [address] Oct, [facility] [place] [facility] [address] [id number] [place] [address] Sep, [facility] [place] [facility] [address] [id number] [place] [address] Sep, [facility] [place] [facility] [address] [id number] [place] [address] Sep, [facility] [place] [facility] [address] [id number] [place] [address] Sep, [facility] [place] [facility] [address] [id number] [place] [address] July, [facility] [place] [facility] [address] [id number] [place] [address] July, [facility] [place] [facility] [address] [id number] [place] [address] July, [facility] [place] [facility] [address] [id number] [place] [address] July, [facility] [place] [facility] [address] [id number] [place] [address] Feb, [facility] [place] [facility] [address] [id number] [place] [address] Feb, [facility] [place] [facility] [address] [id number] [place] [address] Jan, [facility] [place] [facility] [address] [id number] [place] [address] 14 Jan, 2013 [facility] [place] [facility] [address] [id number] [place] [address] Jan, [facility] [place] [facility] [address] [id number] [place] [address] Jan, [facility] [place] [facility] [address] [id number] [place] [address] 30 Nov, 2012 [facility] [place] [facility] [address] [id number] [place] [address] Aug, [facility] [place] [facility] [address] [id number] [place] [address] July, [facility] [address] [id number] [place] [address] Jun, [facility] [address] [id number] [place] [address] Apr, [facility] [address] [id number] [place] [address] Mar, [facility] [address] [id number] [place] [address] Mar, [facility] [address] [id number] [place] [address] Jan, [facility] [address] [id number] [place] [address] Jan, [facility] [address] [id number] [place] [address] Jan, [facility] [address] [id number] [place] [address] Jan, [facility] [address] [id number] [place] [address] Dec, [facility] [address] [facility] [id number] [place] [address] Dec, [facility] [address] [id number] [place] [address] Dec, [facility] [address] [id number] [place] [address] Dec, [facility] [place] [facility] [address] [id number] [place] [address] Nov, [facility] [place] [facility] [address] [id number] [place] [address] Oct, [facility] [address] [id number] [place] [address] July, [facility] [place] [facility] [address] [id number] [place] [address] Mar, [facility] [place] [facility] [address] [id number] [place] [address] Jan, [facility] [place] [facility] [address] [id number] [place] [address] Jan, [facility] [place] [facility] [address] [id number] [place] [address] Dec, [facility] [place] [facility] [address] [id number] [place] [address] Dec, [facility] [place] [facility] [address] [id number] [place] [address] Dec, [facility] [place] [facility] [address] [id number] [place] [address] Nov, [facility] [place] [facility] [address] [id number] [place] [address] July, [facility] [place] [facility] [address] [id number] [place] [address] Jun, [facility] [place] [facility] [address] [id number] [place] [address] May, [facility] [place] [facility] [address] [id number] [place] [address] 14 Apr, 2010 [facility] [place] [facility] [address] [id number] [place] [address] Apr, [facility] [place] [facility] [address] [id number] [place] [address] Mar, [facility] [place] [facility] [address] [id number] [place] [address] Jan, [facility] [place] [facility] [address] [id number] [place] [address] Dec, [facility] [place] [facility] [address] [id number] [place] [address] Jun, [facility] [address] [facility] [id number] [place] [address] Jun, IMMUNIZATIONS No Known Immunizations SOCIAL HISTORY Never Assessed REASON FOR VISIT Controlled 03/01 PLAN OF CARE VITAL SIGNS MEDICATIONS Medication Instructions Dosage Frequency Start Date End Date Duration Status Hydrocodone-Acetaminophen 5-325 MG Orally 3 times a day 1 tablet 8h Feb, 28 days Active RESULTS No Results PROCEDURES No Known procedures INSTRUCTIONS MEDICATIONS ADMINISTERED No Known Medications MEDICAL (GENERAL) HISTORY Type Description Date Medical History prostatism Medical History chronic pain Medical History hypertension Medical History heart failure Surgical History Hernia 02/09/18 Hospitalization History Cardiomyopathy-[facility] 01/12/18 Hospitalization History heart failure 01/07 Hospitalization History Heart 01/2018
--- OUTSIDE RECORDS SUMMARY | 2018-08-06 16:24 | XMS REPORT ---
Author Author RONAL CAMARGO Organization [facility] Address [address] [place] [address] Care Team Providers Care System Technologist Name Role Phone RONAL CAMARGO Unavailable PROBLEMS Type Condition ICD9-CM Code [id number] Code Onset Dates Condition Status SNOMED Code Problem Hypertension I10 Active 28705657 Problem Pure hypercholesterolemia E78.00 Active 132389852 Problem Arthritis M19.90 Active 0594357 Problem Back pain M54.9 Active 158146563 Problem Chronic kidney disease, unspecified CKD stage N18.9 Active 527324333 Problem Acute systolic congestive heart failure I50.21 Active 652109395 Problem Prostatism N40.0 Active 85334632 Problem Other chronic pain G89.29 Active 91032838 Problem Right inguinal hernia K40.90 Active 616771420 Problem Functional diarrhea K59.1 Active [id number] ALLERGIES No Information ENCOUNTERS Encounter Location Date Diagnosis [facility] [address] [address] Feb, [facility] [id number] [place] [address] Feb, Hypertension I10 [facility] [address] [address] Feb, Hypertension I10 [facility] [id number] [place] [address] Feb, Back pain M54.9 [facility] [address] [address] Jan, Back pain M54.9 [facility] [id number] [place] [address] Jan, Back pain M54.9 [facility] [id number] [address] Jan, Chronic kidney disease, unspecified CKD stage N18.9 [facility] [id number] [place] [address] Jan, Chronic kidney disease, unspecified CKD stage N18.9 [facility] [id number] [place] [address] Jan, Acute systolic congestive heart failure I50.21 ; Hypertension I10 and Back pain M54.9 [facility] [id number] [place] [address] Dec, [facility] [id number] [place] [address] Dec, [facility] [id number] [place] [address] Dec, [facility] [id number] [place] [address] Dec, [facility] [id number] [place] [address] Dec, Right inguinal hernia K40.90 and Edema, unspecified type R60.9 [facility] [id number] [place] [address] Dec, Back pain M54.9 [facility] [id number] [place] [address] Nov, Back pain M54.9 [facility] [id number] [place] [address] Oct, Back pain M54.9 [facility] [id number] [place] [address] Oct, [facility] [id number] [place] [address] Sep, Back pain M54.9 [facility] [id number] [place] [address] Aug, Back pain M54.9 ; Prostatism N40.0 ; Functional diarrhea K59.1 and Right inguinal hernia K40.90 [facility] [id number] [place] [address] July, Other chronic pain G89.29 [facility] [address] [address] Jun, Other chronic pain G89.29 [facility] [address] [address] May, Other chronic pain G89.29 [place] [address] [address] Apr, Other chronic pain G89.29 [facility] [address] [address] Mar, Other chronic pain G89.29 [facility] [id number] [place] [address] Feb, Other chronic pain G89.29 [facility] [id number] [place] [address] Feb, Acute upper respiratory infection, unspecified J06.9 and Other viral agents as the cause of diseases classified elsewhere B97.89 [facility] [id number] [place] [address] Jan, [place] [id number] [place] [address] Jan, Back pain M54.9 and Prostatism N40.0 [facility] [id number] [place] [address] Jan, Other chronic pain G89.29 [facility] [id number] [place] [address] Dec, [facility] [id number] [address] Dec, Other chronic pain G89.29 [facility] [id number] [place] [address] 29 Nov, 2016 Other chronic pain G89.29 [facility] [id number] [place] [address] 25 Nov, 2016 Encounter for immunization Z23 [facility] [id number] [place] [address] Nov, Other chronic pain G89.29 [facility] [id number] [place] [address] Oct, Other chronic pain G89.29 [facility] [id number] [place] [address] Oct, Back pain M54.9 [facility] [id number] [place] [address] Sep, Back pain M54.9 [facility] [id number] [place] [address] Aug, [facility] [id number] [place] [address] Aug, Back pain M54.9 [facility] [id number] [place] [address] July, Back pain M54.9 [facility] [id number] [place] [address] Jun, Weight loss R63.4 and Postural hypotension I95.1 [facility] [id number] [place] [address] 14 Jun, 2016 Back pain M54.9 [facility] [id number] [place] [address] May, Back pain M54.9 [facility] [id number] [address] Apr, Back pain M54.9 [facility] [id number] [place] [address] Apr, Pure hypercholesterolemia E78.00 [facility] [id number] [place] [address] Apr, Hypertension I10 ; Back pain M54.9 ; Urge incontinence of urine N39.41 and [place] L84 [facility] [id number] [place] [address] Mar, [facility] [id number] [place] [address] Mar, Other chronic pain G89.29 [facility] [id number] [place] [address] Feb, [facility] [id number] [place] [address] Jan, [facility] [id number] [place] [address] 28 Dec, 2015 [facility] [id number] [place] [address] Nov, [facility] [id number] [place] [address] 05 Oct, 2015 [facility] [id number] [place] [address] Sep, Back pain M54.9 [facility] [id number] [place] [address] 17 Aug, 2015 Back pain M54.9 and Hypertension I10 [facility] [address] [address] 13 Aug, 2015 Low back pain M54.5 and Other chronic pain G89.29 [facility] [id number] [place] [address] Aug, Back pain M54.9 [facility] [id number] [place] [address] July, Back pain M54.9 [facility] [id number] [place] [address] Jun, Back pain M54.9 [facility] [address] [address] May, Back pain M54.9 [facility] [id number] [place] [address] Apr, Back pain M54.9 [facility] [id number] [place] [address] Mar, Back pain M54.9 [facility] [address] [address] Feb, Prostatitis N41.9 ; Arthritis M19.90 and Hypertension I10 [facility] [id number] [place] [address] Feb, [facility] [id number] [place] [address] Jan, [place] [id number] [place] [address] Dec, Encounter for immunization Z23 [facility] [id number] [place] [address] Dec, [facility] [id number] [place] [address] Dec, Eye pain H57.10 [facility] [id number] [place] [address] 13 Dec, 2014 Contusion of left leg S80.12XA and Right shoulder injury S49.91XA [facility] [id number] [address] Dec, Cellulitis L03.90 ; Back pain M54.9 ; Urinary incontinence R32 and Need for okdlrjghrp-ijfbhcm-busrwuodg (Tdap) vaccine Z23 [facility] [id number] [address] 30 Nov, 2014 Need for prophylactic vaccination with tetanus-diphtheria (TD) V06.5 [facility] [id number] [place] [address] Nov, [facility] [id number] [place] [address] Oct, [facility] [id number] [place] [address] Sep, [facility] [id number] [address] Sep, [facility] [id number] [address] Aug, [facility] [id number] [address] July, [facility] [id number] [address] July, [facility] [id number] [address] Jun, [facility] [id number] [address] Jun, [facility] [id number] [address] May, [facility] [id number] [address] May, [facility] [id number] [address] Apr, [facility] [address] [place] [address] Apr, [facility] [address] [id number] [place] [address] Mar, [facility] [address] [id number] [place] [address] Mar, [facility] [address] [id number] [place] [address] Mar, [facility] [address] [id number] [place] [address] Mar, [facility] [address] [id number] [place] [address] Mar, [facility] [address] [id number] [place] [address] Mar, [facility] [address] [id number] [place] [address] Mar, [facility] [address] [id number] [place] [address] Mar, [facility] [address] [id number] [place] [address] Mar, [facility] [address] [id number] [place] [address] Mar, [facility] [address] [id number] [place] [address] Mar, [facility] [place] [facility] [address] [id number] [place] [address] Mar, [facility] [place] [facility] [address] [id number] [place] [address] Mar, [facility] [place] [facility] [address] [id number] [place] [address] Mar, [facility] [place] [facility] [address] [id number] [place] [address] Feb, [facility] [place] [facility] [address] [id number] [place] [address] Feb, [facility] [place] [facility] [address] [id number] [place] [address] Feb, [facility] [place] [facility] [address] [id number] [place] [address] Feb, [facility] [place] [facility] [address] [id number] [place] [address] Feb, [facility] [place] [facility] [address] [id number] [place] [address] Feb, [facility] [place] [facility] [address] [id number] [place] [address] Jan, [facility] [place] [facility] [address] [id number] [place] [address] Jan, [facility] [place] [facility] [address] [id number] [place] [address] Dec, [facility] [place] [facility] [address] [id number] [place] [address] Dec, [facility] [place] [facility] [address] [id number] [place] [address] Dec, [facility] [place] [facility] [address] [id number] [place] [address] Dec, [facility] [place] [facility] [address] [id number] [address] Dec, [facility] [place] [facility] [address] [id number] [place] [address] Dec, [facility] [place] [facility] [address] [id number] [place] [address] Nov, [facility] [place] [facility] [address] [id number] [place] [address] Nov, [facility] [place] [facility] [address] [id number] [address] Oct, [facility] [place] [facility] [address] [id number] [place] [address] Oct, [facility] [place] [facility] [address] [id number] [place] [address] Sep, [facility] [place] [facility] [address] [id number] [place] [address] Sep, [facility] [place] [facility] [address] [id number] [place] [address] Sep, [facility] [place] [facility] [address] [id number] [place] [address] Sep, [facility] [place] [facility] [address] [id number] [place] [address] July, [facility] [place] [facility] [address] [id number] [place] [address] July, [facility] [place] [facility] [address] [id number] [place] [address] July, [facility] [place] [facility] [address] [id number] [place] [address] July, [facility] [place] [facility] [address] [id number] [place] [address] Feb, [facility] [place] [facility] [address] [id number] [place] [address] Feb, [facility] [place] [facility] [address] [id number] [place] [address] Jan, [facility] [place] [facility] [address] [id number] [place] [address] Jan, [facility] [place] [facility] [address] [id number] [place] [address] Jan, [facility] [place] [facility] [address] [id number] [place] [address] Jan, [facility] [place] [facility] [address] [id number] [place] [address] Nov, [facility] [place] [facility] [address] [id number] [place] [address] Aug, [facility] [place] [facility] [address] [id number] [place] [address] July, [facility] [place] [facility] [address] [id number] [place] [address] Jun, [facility] [place] [facility] [address] [id number] [place] [address] Apr, [facility] [place] [facility] [address] [id number] [place] [address] Mar, [facility] [place] [facility] [address] [id number] [place] [address] Mar, [facility] [place] [facility] [address] [id number] [place] [address] Jan, [facility] [place] [facility] [address] [id number] [place] [address] Jan, [facility] [place] [facility] [address] [id number] [place] [address] Jan, [facility] [place] [facility] [address] [facility] [id number] [place] [address] Jan, [facility] [place] [facility] [address] [id number] [place] [address] Dec, [facility] [place] [facility] [address] [id number] [place] [address] Dec, [facility] [place] [facility] [address] [id number] [place] [address] Dec, [facility] [place] [facility] [address] [id number] [place] [address] Dec, [facility] [place] [facility] [address] [id number] [place] [address] Nov, [facility] [place] [facility] [address] [id number] [place] [address] Oct, [facility] [place] [facility] [address] [id number] [place] [address] July, [facility] [place] [facility] [address] [id number] [place] [address] Mar, [facility] [place] [facility] [address] [id number] [place] [address] Jan, [facility] [place] [facility] [address] [id number] [place] [address] Jan, [facility] [place] [facility] [address] [id number] [place] [address] Dec, [facility] [place] [facility] [address] [id number] [place] [address] Dec, [facility] [place] [facility] [address] [id number] [place] [address] Dec, [facility] [place] [facility] [address] [id number] [place] [address] Nov, [facility] [place] [facility] [address] [id number] [place] [address] July, [facility] [place] [facility] [address] [id number] [place] [address] Jun, [facility] [place] [facility] [address] [id number] [address] May, [facility] [place] [facility] [address] [id number] [place] [address] 14 Apr, 2010 [facility] [place] [facility] [address] [id number] [place] [address] 10 Apr, 2010 [facility] [place] [facility] [address] [id number] [place] [address] 14 Mar, 2010 [facility] [place] [facility] [address] [facility] [id number] [place] [address] Jan, [facility] [address] [facility] [id number] [address] Dec, [facility] [address] [facility] [id number] [address] Jun, [facility] [address] [facility] [id number] [address] Jun, IMMUNIZATIONS No Known Immunizations SOCIAL HISTORY Never Assessed REASON FOR VISIT lab order PLAN OF CARE VITAL SIGNS MEDICATIONS Unknown [...]
--- OUTSIDE RECORDS SUMMARY | 2018-08-06 16:25 | XMS REPORT ---
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 Name Role Phone RONAL CAMARGO Unavailable PROBLEMS Type Condition ICD9-CM Code [id number] Code Onset Dates Condition Status SNOMED Code Problem Hypertension I10 Active 49313044 Problem Pure hypercholesterolemia E78.00 Active 001094562 Problem Arthritis M19.90 Active 4082802 Problem Back pain M54.9 Active 152237521 Problem Chronic kidney disease, unspecified CKD stage N18.9 Active 480576767 Problem Acute systolic congestive heart failure I50.21 Active 374787432 Problem Prostatism N40.0 Active 03464933 Problem Other chronic pain G89.29 Active 75070328 Problem Right inguinal hernia K40.90 Active 239883042 Problem Functional diarrhea K59.1 Active 49694586 ALLERGIES No Information ENCOUNTERS Encounter Location Date Diagnosis [place] [address] [address] Jan, Back pain M54.9 [facility] [place] [address] [address] Jan, Back pain M54.9 [facility] [place] [address] [address] Jan, Chronic kidney disease, unspecified CKD stage N18.9 [facility] [place] [address] [address] Jan, Chronic kidney disease, unspecified CKD stage N18.9 [facility] [place] [address] [address] Jan, Acute systolic congestive heart failure I50.21 ; Hypertension I10 and Back pain M54.9 [facility] [place] [address] [place] [id number] [place] [address] Dec, [facility] [place] [address] [address] Dec, [facility] [place] [address] [place] [address] [id number] [place] [address] Dec, [facility] [place] [address] [address] Dec, [facility] [place] [address] [address] Dec, Right inguinal hernia K40.90 and Edema, unspecified type R60.9 [facility] [place] [address] [place] [id number] [place] [address] Dec, Back pain M54.9 [facility] [place] [address] [address] Nov, Back pain M54.9 [facility] [place] [address] [address] Oct, Back pain M54.9 [facility] [place] [address] [address] Oct, [facility] [place] [address] [place] [address] [id number] [place] [address] Sep, Back pain M54.9 [facility] [place] [address] [place] [address] [id number] [place] [address] Aug, Back pain M54.9 ; Prostatism N40.0 ; Functional diarrhea K59.1 and Right inguinal hernia K40.90 [facility] [place] [address] [place] [id number] [place] [address] July, Other chronic pain G89.29 [facility] [place] [address] [place] [id number] [place] [address] Jun, Other chronic pain G89.29 [facility] [place] [address] [place] [address] [id number] [place] [address] May, Other chronic pain G89.29 [facility] [place] [address] [address] 15 Apr, 2017 Other chronic pain G89.29 [facility] [place] [address] [place] [id number] [place] [address] Mar, Other chronic pain G89.29 [facility] [place] [address] [address] Feb, Other chronic pain G89.29 [facility] [address] [address] Feb, Acute upper respiratory infection, unspecified J06.9 and Other viral agents as the cause of diseases classified elsewhere B97.89 [facility] [place] [address] [address] Jan, [facility] [place] [address] [place] [id number] [place] [address] Jan, Back pain M54.9 and Prostatism N40.0 [facility] [place] [address] [place] [id number] [place] [address] Jan, Other chronic pain G89.29 [facility] [place] [address] [place] [id number] [place] [address] Dec, [facility] [place] [address] [place] [id number] [place] [address] Dec, Other chronic pain G89.29 [facility] [place] [address] [place] [id number] [place] [address] Nov, Other chronic pain G89.29 [facility] [place] [address] [place] [id number] [place] [address] Nov, Encounter for immunization Z23 [facility] [place] [address] [address] Nov, Other chronic pain G89.29 [facility] [place] [address] [place] [id number] [place] [address] Oct, Other chronic pain G89.29 [facility] [place] [address] [place] [id number] [place] [address] 07 Oct, 2016 Back pain M54.9 [facility] [place] [address] [address] Sep, Back pain M54.9 [facility] [place] [address] [address] Aug, [place] [address] [address] Aug, Back pain M54.9 [place] [address] [address] July, Back pain M54.9 [place] [address] [address] 24 Jun, 2016 Weight loss R63.4 and Postural hypotension I95.1 [place] [address] [address] Jun, Back pain M54.9 [place] [address] [address] May, Back pain M54.9 [place] [address] [place] [id number] [place] [address] Apr, Back pain M54.9 [place] [address] [place] [id number] [place] [address] Apr, Pure hypercholesterolemia E78.00 [facility] [place] [address] [place] [id number] [place] [address] 06 Apr, 2016 Hypertension I10 ; Back pain M54.9 ; Urge incontinence of urine N39.41 and [place] L84 [place] [id number] [address] Mar, [facility] [place] [address] [facility] [id number] [place] [address] Mar, Other chronic pain G89.29 [facility] [place] [address] [facility] [id number] [place] [address] Feb, [facility] [place] [address] [facility] [id number] [place] [address] Jan, [facility] [place] [address] [facility] [id number] [place] [address] Dec, [facility] [place] [address] [facility] [id number] [place] [address] Nov, [facility] [place] [address] [place] [id number] [place] [address] Oct, [facility] [place] [address] [place] [id number] [place] [address] Sep, Back pain M54.9 [facility] [place] [address] [place] [id number] [place] [address] 17 Aug, 2015 Back pain M54.9 and Hypertension I10 [facility] [address] [place] [id number] [address] 13 Aug, 2015 Low back pain M54.5 and Other chronic pain G89.29 [facility] [place] [address] [address] Aug, Back pain M54.9 [facility] [place] [address] [facility] [id number] [address] July, Back pain M54.9 [facility] [place] [address] [place] [id number] [address] 06 Jun, 2015 Back pain M54.9 [facility] [place] [address] [place] [id number] [address] May, Back pain M54.9 [place] [address] [place] [id number] [place] [address] Apr, Back pain M54.9 [place] [address] [address] Mar, Back pain M54.9 [place] [address] [address] Feb, Prostatitis N41.9 ; Arthritis M19.90 and Hypertension I10 [place] [address] [address] Feb, [place] [address] [address] Jan, [place] [address] [address] Dec, Encounter for immunization Z23 [place] [address] [address] Dec, [place] [address] [address] Dec, Eye pain H57.10 [place] [address] [address] Dec, Contusion of left leg S80.12XA and Right shoulder injury S49.91XA [place] [address] [address] Dec, Cellulitis L03.90 ; Back pain M54.9 ; Urinary incontinence R32 and Need for ukyarbkhth-mqfiwhf-cqhboycze (Tdap) vaccine Z23 [place] [address] [address] Nov, Need for prophylactic vaccination with tetanus-diphtheria (TD) V06.5 [place] [address] [address] Nov, [facility] [place] [facility] [address] [id number] [place] [address] Oct, [facility] [place] [facility] [address] [id number] [place] [address] Sep, [facility] [place] [facility] [address] [id number] [place] [address] Sep, [facility] [place] [facility] [address] [id number] [place] [address] Aug, [facility] [place] [facility] [address] [id number] [place] [address] July, [facility] [place] [facility] [address] [id number] [place] [address] July, [facility] [place] [facility] [address] [id number] [place] [address] Jun, [facility] [place] [facility] [address] [id number] [place] [address] Jun, [facility] [place] [facility] [address] [id number] [place] [address] May, [facility] [place] [facility] [address] [id number] [place] [address] May, [facility] [place] [facility] [address] [id number] [place] [address] Apr, [facility] [place] [facility] [address] [id number] [place] [address] Apr, [facility] [place] [facility] [address] [id number] [place] [address] Mar, [facility] [place] [facility] [address] [id number] [place] [address] Mar, [facility] [place] [facility] [address] [id number] [place] [address] Mar, [facility] [place] [facility] [address] [id number] [place] [address] Mar, [facility] [place] [facility] [address] [id number] [place] [address] Mar, [facility] [place] [facility] [address] [id number] [place] [address] Mar, [facility] [place] [facility] [address] [id number] [place] [address] Mar, [facility] [place] [facility] [address] [id number] [place] [address] Mar, [facility] [place] [facility] [address] [id number] [place] [address] Mar, [facility] [place] [facility] [address] [id number] [place] [address] Mar, [facility] [place] [facility] [address] [id number] [place] [address] Mar, [facility] [place] [facility] [address] [id number] [place] [address] Mar, [facility] [place] [facility] [address] [id number] [place] [address] Mar, [facility] [place] [facility] [address] [id number] [place] [address] Mar, [facility] [place] [facility] [address] [id number] [place] [address] Feb, [facility] [place] [facility] [address] [id number] [place] [address] Feb, [facility] [place] [facility] [address] [id number] [place] [address] Feb, [facility] [place] [facility] [address] [id number] [place] [address] Feb, [facility] [place] [facility] [address] [id number] [place] [address] Feb, [facility] [place] [facility] [address] [id number] [place] [address] Feb, [facility] [place] [facility] [address] [id number] [place] [address] Jan, [facility] [place] [facility] [address] [id number] [place] [address] Jan, [facility] [place] [facility] [address] [id number] [place] [address] Dec, [facility] [place] [facility] [address] [id number] [place] [address] Dec, [facility] [place] [facility] [address] [id number] [place] [address] Dec, [facility] [place] [facility] [address] [id number] [place] [address] Dec, [facility] [place] [facility] [address] [id number] [place] [address] Dec, [facility] [place] [facility] [address] [id number] [place] [address] Dec, [facility] [place] [facility] [address] [id number] [place] [address] Nov, [facility] [place] [facility] [address] [id number] [place] [address] Nov, [facility] [place] [facility] [address] [id number] [place] [address] Oct, [facility] [place] [facility] [address] [id number] [place] [address] Oct, [facility] [place] [facility] [address] [id number] [place] [address] Sep, [facility] [place] [facility] [address] [id number] [place] [address] Sep, [facility] [place] [facility] [address] [id number] [place] [address] Sep, [facility] [place] [facility] [address] [id number] [place] [address] Sep, [facility] [place] [facility] [address] [id number] [place] [address] July, [facility] [place] [facility] [address] [id number] [place] [address] July, [facility] [place] [facility] [address] [id number] [place] [address] July, [facility] [address] [id number] [place] [address] July, [facility] [place] [facility] [address] [id number] [place] [address] Feb, [facility] [place] [facility] [address] [id number] [place] [address] Feb, [facility] [place] [facility] [address] [id number] [place] [address] Jan, [facility] [place] [facility] [address] [id number] [place] [address] Jan, [facility] [place] [facility] [address] [id number] [place] [address] Jan, [facility] [place] [facility] [address] [id number] [place] [address] Jan, [facility] [place] [facility] [address] [id number] [address] 30 Nov, 2012 [facility] [place] [facility] [address] [id number] [place] [address] Aug, [facility] [place] [facility] [address] [id number] [place] [address] July, [facility] [place] [facility] [address] [id number] [place] [address] 05 Jun, 2012 [facility] [place] [facility] [address] [id number] [address] Apr, [facility] [place] [facility] [address] [id number] [place] [address] Mar, [facility] [place] [facility] [address] [id number] [place] [address] Mar, [facility] [place] [facility] [address] [facility] [id number] [place] [address] Jan, [facility] [place] [facility] [address] [id number] [place] [address] Jan, [facility] [place] [facility] [address] [id number] [place] [address] Jan, [facility] [place] [facility] [address] [facility] [id number] [place] [address] Jan, [facility] [place] [facility] [address] [place] [id number] [place] [address] Dec, [facility] [place] [facility] [address] [facility] [id number] [place] [address] Dec, [facility] [place] [facility] [address] [facility] [id number] [place] [address] Dec, [facility] [place] [facility] [address] [facility] [id number] [place] [address] Dec, [facility] [place] [facility] [address] [facility] [id number] [place] [address] Nov, [facility] [place] [facility] [address] [facility] [id number] [place] [address] Oct, [facility] [place] [facility] [address] [id number] [place] [address] July, [facility] [place] [facility] [address] [facility] [id number] [place] [address] Mar, [facility] [place] [facility] [address] [facility] [id number] [place] [address] Jan, [facility] [place] [facility] [address] [facility] [id number] [place] [address] 17 Jan, 2011 [facility] [place] [address] [facility] [id number] [place] [address] Dec, [facility] [place] [address] [facility] [id number] [place] [address] 17 Dec, 2010 [facility] [place] [address] [facility] [id number] [place] [address] 17 Dec, 2010 [facility] [place] [address] [facility] [id number] [place] [address] 14 Nov, 2010 [facility] [place] [address] [facility] [id number] [place] [address] July, [facility] [place] [address] [facility] [id number] [place] [address] 14 Jun, 2010 [facility] [place] [address] [facility] [id number] [place] [address] May, [facility] [place] [address] [facility] [id number] [place] [address] 14 Apr, 2010 [facility] [place] [id number] [address] 10 Apr, 2010 [facility] [place] [address] [facility] [id number] [place] [address] 14 Mar, 2010 [facility] [place] [id number] [address] Jan, [facility] [place] [address] [facility] [id number] [place] [address] Dec, [facility] [place] [address] [facility] [id number] [place] [address] Jun, [facility] [place] [address] [facility] [id number] [place] [address] 13 Jun, 2009 IMMUNIZATIONS No Known Immunizations SOCIAL HISTORY Never Assessed REASON FOR VISIT Request for hydrocodone fill PLAN OF CARE VITAL SIGNS MEDICATIONS Medication Instructions Dosage Frequency Start Date End Date Duration Status Hydrocodone-Acetaminophen 5-325 MG Orally 3 times a day 1 tablet 8h Jan, 28 days Active RESULTS No Results PROCEDURES No Known procedures INSTRUCTIONS MEDICATIONS ADMINISTERED No Known Medications MEDICAL (GENERAL) HISTORY Type Description Date Medical History prostatism Medical History chronic pain Medical History hypertension Medical History heart failure Surgical History No Surgical history information Hospitalization History Cardiomyopathy-[facility] 01/12/18 Hospitalization History heart failure 01/07
[2018-08-06 16:37] VITALS: BP 123/85
--- OUTSIDE RECORDS SUMMARY | 2018-08-06 16:38 | XMS REPORT | Continuity of Care Document ---
Author Organization Unknown Address Unknown Allergies Active Description Code Type Severity Reaction [...] CAMARGO MD 465.9 Upper Respiratory Infection 08/09/2008 KALE DPMark, EUGENIA 465.9 Upper Respiratory Infection 08/09/2008 KALE HATHAWAY, EUGENIA 465.9 Upper Respiratory Infection 08/09/2008 RONAL CAMARGO MD 465.9 Upper Respiratory Infection 08/09/2008 RONAL CAMARGO MD 465.9 Upper Respiratory Infection 08/09/2008 EUGENE SORENSEN DDS 465.9 Upper Respiratory Infection 08/09/2008 RONAL CAMARGO MD 465.9 Upper Respiratory Infection 08/09/2008 ANA ROSA PATEL APRN 465.9 Upper Respiratory Infection 08/09/2008 RONAL CAMARGO [...] 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 11/01/2008 KALE DPM, EUGENIA 296.33 Mo 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 11/01/2008 KALE DPM, EUGENIA 296.33 Mo 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 11/01/2008 RONAL CAMARGO MD 296.33 Mo 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 11/01/2008 RONAL CAMARGO MD 296.33 Mo 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 11/01/2008 FRANCHESCA WILLIS, EUGENE Paz 296.33 Mo 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 11/01/2008 RONAL CAMARGO MD 296.33 Mo 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 11/01/2008 JORGE CHEMICAL PROCESSING EQUIPMENT REPAIRER, ANA ROSA R 296.33 Mo 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 11/01/2008 RONAL CAMARGO MD 296.33 Mo 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 11/01/2008 FRANCHESCA WILLIS, EUGENE Paz 296.33 Mo 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 03/30/2009 RONAL CAMARGO MD 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, Unspecified, Site Unspecified 03/30/2009 RONAL CAMARGO MD 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, Unspecified, Site Unspecified 03/30/2009 Daniel6.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, Unspecified, Site Unspecified 03/30/2009 Daniel6.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, Unspecified, Site Unspecified 03/30/2009 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, Unspecified, Site Unspecified 03/30/2009 BG NAIR DO 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, Unspecified, Site Unspecified 03/30/2009 RONAL CAMARGO MD 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, Unspecified, Site Unspecified 03/30/2009 RONAL CAMARGO MD 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, Unspecified, Site Unspecified 03/30/2009 RAMAN FLOYD, RONAL 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, Unspecified, Site Unspecified 03/30/2009 KALE DPM, EUGENIA 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, Unspecified, Site Unspecified 03/30/2009 KALE DPM, EUGENIA 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, Unspecified, Site Unspecified 03/30/2009 RAMAN FLOYD, RONAL 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, Unspecified, Site Unspecified 03/30/2009 RAMAN FLOYD, RONAL 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, Unspecified, Site Unspecified 03/30/2009 FRANCHESCA WILLIS, EUGENE Paz 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, Unspecified, Site Unspecified 03/30/2009 RAMAN FLOYD, RONAL 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, Unspecified, Site Unspecified 03/30/2009 JORGE CHEMICAL PROCESSING EQUIPMENT REPAIRER, ANA ROSA Yates 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, Unspecified, Site Unspecified 03/30/2009 RAMAN [...] 707.10 Ulcer Of Lower Limb, Unspecified 06/21/2009 KALE DPM, EUGENIA 401.1 HYPERTENSION, BENIGN ESSENTIAL 06/21/2009 KALE DPM, EUGENIA 707.10 Ulcer Of Lower Limb, Unspecified 06/21/2009 KALE DPM, EUGENIA 401.1 HYPERTENSION, BENIGN ESSENTIAL 06/21/2009 KALE DPM, EUGENIA 707.10 Ulcer Of Lower Limb, [...] 707.10 Ulcer Of Lower Limb, Unspecified 06/21/2009 JORGE LUCERO, ANA ROSA R 401.1 HYPERTENSION, BENIGN ESSENTIAL 06/21/2009 JORGE LUCERO, ANA ROSA R 707.10 Ulcer Of Lower Limb, Unspecified [...] 07/03/2009 724.3 Sciatica 07/03/2009 BG NAIR DO 724.3 Sciatica 07/03/2009 RAMAN FLOYD, RONAL 724.3 Sciatica 07/03/2009 RAMAN FLOYD, RONAL 724.3 Sciatica 07/03/2009 RAMAN FLOYD, RONAL 724.3 Sciatica 07/03/2009 KALE DPM, EUGENIA 724.3 Sciatica 07/03/2009 KALE DPM, EUGENIA 724.3 Sciatica 07/03/2009 RAMAN FLOYD, RONAL 724.3 Sciatica 07/03/2009 RAMAN FLOYD, RONAL 724.3 Sciatica 07/03/2009 FRANCHESCA WILLIS, EUGENE Paz 724.3 Sciatica 07/03/2009 RAMAN FLOYD, RONAL 724.3 Sciatica 07/03/2009 JORGE MCNALLYN, ANA ROSA R 724.3 Sciatica 07/03/2009 RAMAN [...] 356.9 Neuropathy 07/06/2009 703.8 Onychocryptosis 07/06/2009 NAIR DO BG K 110.1 Onychomycosis 07/06/2009 NAIR DOBG K 356.9 Neuropathy 07/06/2009 NAIR BG CLEMENT 703.8 Onychocryptosis 07/06/2009 RAMAN FLOYD, RONAL 110.1 Onychomycosis 07/06/2009 RAMAN FLOYD, RONAL 356.9 Neuropathy 07/06/2009 RAMAN FLOYD, RONAL 703.8 Onychocryptosis 07/06/2009 RAMAN FLOYD, RONAL 110.1 Onychomycosis 07/06/2009 RAMAN FLOYD, RONAL 356.9 Neuropathy 07/06/2009 RAMAN FLOYD, RONAL 703.8 Onychocryptosis 07/06/2009 RAMAN FLOYD, RONAL 110.1 Onychomycosis 07/06/2009 RAMAN FLOYD, RONAL 356.9 Neuropathy 07/06/2009 RAMAN FLOYD, RONAL Parekh3.8 Onychocryptosis 07/06/2009 KALE DPM, EUGENIA 110.1 Onychomycosis 07/06/2009 KALE DPM, EUGENIA 356.9 Neuropathy 07/06/2009 KALE DPM, EUGENIA 703.8 Onychocryptosis 07/06/2009 KALE DPM, EUGENIA 110.1 Onychomycosis 07/06/2009 KALE DPM, EUGENIA 356.9 Neuropathy 07/06/2009 KALE DPM, EUGENIA 703.8 Onychocryptosis 07/06/2009 RAMAN FLOYD, RONAL 110.1 Onychomycosis 07/06/2009 RAMAN FLOYD, RONAL 356.9 Neuropathy 07/06/2009 RAMAN FLOYD, RONAL 703.8 Onychocryptosis 07/06/2009 RAMAN FLOYD, RONAL 110.1 Onychomycosis 07/06/2009 RAMAN FLOYD, RONAL 356.9 Neuropathy 07/06/2009 RAMAN FLOYD, RONAL 703.8 Onychocryptosis 07/06/2009 FRANCHESCA SAMSONS, EUGENE Paz 110.1 Onychomycosis 07/06/2009 FRANCHESCA SAMSONS, UEGENE Paz 356.9 Neuropathy 07/06/2009 FRANCHESCA SAMSONS, EUGENE Paz 703.8 Onychocryptosis 07/06/2009 RAMAN FLOYD, RONAL 110.1 Onychomycosis 07/06/2009 RAMAN FLOYD, RONAL Finley.9 Neuropathy 07/06/2009 RAMAN FLOYD, RONAL 703.8 Onychocryptosis 07/06/2009 JORGE CHEMICAL PROCESSING EQUIPMENT REPAIRER, ANA ROSA R 110.1 Onychomycosis 07/06/2009 JORGE CHEMICAL PROCESSING EQUIPMENT REPAIRER, ANA ROSA R 356.9 Neuropathy 07/06/2009 JORGE CHEMICAL PROCESSING EQUIPMENT REPAIRER, ANA ROSA R 703.8 Onychocryptosis 07/06/2009 RAMAN FLOYD, RONAL 110.1 Onychomycosis 07/06/2009 RAMAN FLOYD, RONAL 356.9 Neuropathy 07/06/2009 RAMAN FLOYD, RONAL 703.8 Onychocryptosis 07/06/2009 FRANCHESCA DDS, EUGENE Paz 110.1 Onychomycosis 07/06/2009 FRANCHESCA SAMSONS, EUGENE Paz 356.9 Neuropathy 07/06/2009 FRANCHESCA SAMSONS, EUGENE Paz 703.8 Onychocryptosis 09/28/2009 RAMAN FLOYD, RONAL 477.9 Rhinitis 09/28/2009 RAMAN FLOYD, RONAL 477.9 Rhinitis 09/28/2009 477.9 Rhinitis 09/28/2009 477.9 Rhinitis 09/28/2009 477.9 Rhinitis 09/28/2009 BG NAIR DO K 477.9 Rhinitis 09/28/2009 RAMAN FLOYD, RONAL 477.9 Rhinitis 09/28/2009 RAMAN FLOYD, RONAL 477.9 Rhinitis 09/28/2009 RAMAN FLOYD, RONAL 477.9 Rhinitis 09/28/2009 KALE DPM, EUGENIA 477.9 Rhinitis 09/28/2009 KALE DPM, EUGENIA 477.9 Rhinitis 09/28/2009 RAMAN FLOYD, RONAL 477.9 Rhinitis 09/28/2009 RAMAN FLOYD, RONAL 477.9 Rhinitis 09/28/2009 FRANCHESCA SAMSONS, EUGENE Paz 477.9 Rhinitis 09/28/2009 RAMAN FLOYD, RONAL 477.9 Rhinitis 09/28/2009 JORGE CHEMICAL PROCESSING EQUIPMENT REPAIRER, ANA ROSA R 477.9 Rhinitis 09/28/2009 RAMAN FLOYD, RONAL 477.9 Rhinitis 09/28/2009 FRANCHESCA SAMSONS, EUGENE Paz 477.9 Rhinitis 04/05/2010 RONAL CAMARGO MD 272.4 HYPERLIPIDEMIA 04/05/2010 RONAL CAMARGO MD 311 DEPRESSIVE DISORDER NOS 04/05/2010 RAMAN FLOYD, RONAL V76.44 Prostate Screening 04/05/2010 RAMAN FLOYD, RONAL 272.4 HYPERLIPIDEMIA 04/05/2010 RONAL CAMARGO MD 311 DEPRESSIVE DISORDER NOS 04/05/2010 RONAL CAMARGO MD V76.44 Prostate Screening 04/05/2010 272.4 HYPERLIPIDEMIA 04/05/2010 [...] RONAL CAMARGO MD V76.44 Prostate Screening 04/05/2010 KALE DPM, EUGENIA 272.4 HYPERLIPIDEMIA 04/05/2010 KAEL DPM, EUGENIA 311 DEPRESSIVE DISORDER NOS 04/05/2010 KALE DPM, EUGENIA V76.44 Prostate Screening 04/05/2010 KALE DPM, EUGENIA 272.4 HYPERLIPIDEMIA 04/05/2010 KALE DPM, EUGENIA 311 DEPRESSIVE DISORDER NOS 04/05/2010 KALE DPM, EUGENIA V76.44 Prostate Screening 04/05/2010 RONAL CAMARGO MD 272.4 HYPERLIPIDEMIA 04/05/2010 RAMAN FLOYD, RONAL 311 DEPRESSIVE DISORDER NOS 04/05/2010 RONAL CAMARGO MD V76.44 Prostate Screening 04/05/2010 RONAL CAMARGO MD 272.4 HYPERLIPIDEMIA 04/05/2010 RAMAN FLOYD, RONAL 311 DEPRESSIVE DISORDER NOS 04/05/2010 RONAL CAMARGO MD V76.44 Prostate Screening 04/05/2010 FRANCHESCA DDSamia, EUGENE Paz 272.4 HYPERLIPIDEMIA 04/05/2010 FRANCHESCA WILLIS, EUGENE Paz 311 DEPRESSIVE DISORDER NOS 04/05/2010 FRANCHESCA SAMSONS, EUGENE Paz V76.44 Prostate Screening 04/05/2010 RONAL CAMARGO MD 272.4 HYPERLIPIDEMIA 04/05/2010 RAMAN FLOYD, RONAL 311 DEPRESSIVE DISORDER NOS 04/05/2010 RONAL CAMARGO MD V76.44 Prostate Screening 04/05/2010 JORGE CHEMICAL PROCESSING EQUIPMENT REPAIRER, ANA ROSA R 272.4 HYPERLIPIDEMIA 04/05/2010 JORGE CHEMICAL PROCESSING EQUIPMENT REPAIRER, ANA ROSA R 311 DEPRESSIVE DISORDER NOS 04/05/2010 JORGE CHEMICAL PROCESSING EQUIPMENT REPAIRER, ANA ROSA R V76.44 Prostate Screening 04/05/2010 RONAL CAMARGO MD 272.4 HYPERLIPIDEMIA 04/05/2010 RONAL CAMARGO MD 311 DEPRESSIVE DISORDER NOS 04/05/2010 RONAL CAMARGO MD V76.44 Prostate Screening 04/05/2010 FRANCHESCA SAMSONS, EUGENE Paz 272.4 HYPERLIPIDEMIA 04/05/2010 FRANCHESCA WILLIS, EUGENE Paz 311 DEPRESSIVE DISORDER NOS 04/05/2010 FRANCHESCA SAMSONS, EUGENE Paz V76.44 Prostate Screening 07/05/2010 RONAL [...] CAMARGO MD 703.0 Ingrown Toenail (infection) 07/05/2010 KALE HATHAWAY, EUGENIA 703.0 Ingrown Toenail (infection) 07/05/2010 KALE HATHAWAY, EUGENIA 703.0 Ingrown Toenail (infection) 07/05/2010 RONAL CAMARGO MD 703.0 Ingrown Toenail (infection) 07/05/2010 RONAL CAMARGO MD 703.0 Ingrown Toenail (infection) 07/05/2010 FRANCHESCA WILLIS, EUGENE Paz 703.0 Ingrown Toenail (infection) 07/05/2010 RONAL CAMARGO MD 703.0 Ingrown Toenail (infection) 07/05/2010 JORGE LUCERO, ANA ROSA Yates 703.0 Ingrown Toenail (infection) 07/05/2010 RONAL CAMARGO MD 703.0 Ingrown Toenail (infection) 07/05/2010 FRANCHESCA WILLIS, EUGENE Paz 703.0 Ingrown Toenail (infection) 08/08/2010 RONAL CAMARGO MD 460 Acute Nasopharyngitis (common Cold) 08/08/2010 RONAL CAMARGO MD 460 Acute Nasopharyngitis (common Cold) 08/08/2010 460 Acute Nasopharyngitis (common Cold) 08/08/2010 460 Acute Nasopharyngitis (common Cold) 08/08/2010 460 Acute Nasopharyngitis (common Cold) 08/08/2010 BG NAIR DO 460 Acute Nasopharyngitis (common Cold) 08/08/2010 RONAL CAMARGO MD 460 Acute Nasopharyngitis (common Cold) 08/08/2010 RONAL CAMARGO MD 460 Acute Nasopharyngitis (common Cold) 08/08/2010 RONAL CAMARGO MD 460 Acute Nasopharyngitis (common Cold) 08/08/2010 EUGENIA BYNUM DPM 460 Acute Nasopharyngitis (common Cold) 08/08/2010 EUGENIA BYNUM DPM 460 Acute Nasopharyngitis (common Cold) 08/08/2010 [...] MD 460 Acute Nasopharyngitis (common Cold) 08/08/2010 EUGENE SORENSEN DDS 460 Acute Nasopharyngitis (common Cold) 08/23/2010 RONAL [...] CAMARGO MD 783.21 Loss Of Weight 08/23/2010 KALE DPM, EUGENIA 783.21 Loss Of Weight 08/23/2010 KALE DPM, EUGENIA 783.21 Loss Of Weight 08/23/2010 RONAL CAMARGO MD 783.21 Loss Of Weight 08/23/2010 RONAL CAMARGO MD 783.21 Loss Of Weight 08/23/2010 EUGENE SORENSEN DDS 783.21 Loss Of Weight 08/23/2010 RONAL CAMARGO MD 783.21 Loss Of Weight 08/23/2010 ANA ROSA PATEL APRN 783.21 Loss Of Weight 08/23/2010 RONAL CAAMRGO MD 783.21 Loss Of Weight 08/23/2010 EUGENE [...] RONAL CAMARGO MD 706.1 Other Acne 12/04/2010 KALE DPM, EUGENIA 706.1 Other Acne 12/04/2010 KALE DPM, EUGENIA 706.1 Other Acne 12/04/2010 RAMAN FLOYD, RONAL 706.1 Other Acne 12/04/2010 RAMAN FLOYD, RONAL 706.1 Other Acne 12/04/2010 FRANCHESCA WILLIS, EUGENE Paz 706.1 Other Acne 12/04/2010 RAMAN FLOYD, RONAL 706.1 Other Acne 12/04/2010 JORGE LUCERO, ANA ROSA R 706.1 Other Acne 12/04/2010 RAMAN FLOYD, RONAL 706.1 Other Acne 12/04/2010 FRANCHESCA WILLIS, EUGENE Paz 706.1 Other Acne 01/06/2011 RAMAN FLOYD, RONAL 847.2 SPRAIN LUMBAR REGION 01/06/2011 RONAL CAMARGO MD 847.2 SPRAIN LUMBAR REGION 01/06/2011 847.2 SPRAIN LUMBAR REGION 01/06/2011 847.2 SPRAIN LUMBAR REGION 01/06/2011 847.2 SPRAIN LUMBAR REGION 01/06/2011 BG NAIR DO 847.2 SPRAIN LUMBAR REGION 01/06/2011 RONAL CAMARGO MD 847.2 SPRAIN LUMBAR REGION 01/06/2011 RAMAN FLOYD, RONAL 847.2 SPRAIN LUMBAR REGION 01/06/2011 RONAL CAMARGO MD 847.2 SPRAIN LUMBAR REGION 01/06/2011 KALE DPM, EUGENIA 847.2 SPRAIN LUMBAR REGION 01/06/2011 KALE DPM, EUGENIA 847.2 SPRAIN LUMBAR REGION 01/06/2011 [...] RONAL CAMARGO MD 372.30 Conjunctivitis Unspecified 01/10/2011 KALE DPM, EUGENIA 372.30 Conjunctivitis Unspecified 01/10/2011 KALE DPM, EUGENIA 372.30 Conjunctivitis Unspecified 01/10/2011 RONAL CAMARGO MD 372.30 Conjunctivitis Unspecified 01/10/2011 RONAL CAMARGO MD 372.30 Conjunctivitis Unspecified 01/10/2011 FRANCHESCA WILLIS, EUGENE Paz 372.30 Conjunctivitis Unspecified 01/10/2011 RONAL CAMARGO MD 372.30 Conjunctivitis Unspecified 01/10/2011 ANA ROSA PATEL APRN R 372.30 Conjunctivitis Unspecified 01/10/2011 RONAL CAMARGO [...] CAMARGO MD 372.14 Conjunctivitis Chronic Allergic 02/06/2011 KALE DPM, EUGENIA 372.14 Conjunctivitis Chronic Allergic 02/06/2011 KALE DPM, EUGENIA 372.14 Conjunctivitis Chronic Allergic 02/06/2011 RONAL CAMARGO MD 372.14 Conjunctivitis Chronic Allergic 02/06/2011 RONAL CAMARGO MD 372.14 Conjunctivitis Chronic Allergic 02/06/2011 EUGENE SORENSEN DDS 372.14 Conjunctivitis Chronic Allergic 02/06/2011 RAMAN FLOYD, RONAL 372.14 Conjunctivitis Chronic Allergic 02/06/2011 ANA ROSA PATEL APRN 372.14 Conjunctivitis Chronic Allergic 02/06/2011 RONAL CAMARGO MD 372.14 Conjunctivitis Chronic Allergic 02/06/2011 FRANCHESCA WILLIS, EUGENE Paz 372.14 Conjunctivitis Chronic Allergic 03/28/2011 RONAL CAMARGO [...] CAMARGO MD 465.9 UPPER RESPIRATORY INFECTION 03/28/2011 KALE DPM, EUGENIA 465.9 UPPER RESPIRATORY INFECTION 03/28/2011 KALE DPM, EUGENIA 465.9 UPPER RESPIRATORY INFECTION 03/28/2011 RONAL CAMARGO MD 465.9 UPPER RESPIRATORY INFECTION 03/28/2011 RONAL CAMARGO MD 465.9 UPPER RESPIRATORY INFECTION 03/28/2011 FRANCHESCA WILLIS, EUGENE aPz 465.9 UPPER RESPIRATORY INFECTION 03/28/2011 RONAL CAMARGO MD 465.9 UPPER RESPIRATORY INFECTION 03/28/2011 ANA ROSA PATEL APRN 465.9 UPPER RESPIRATORY INFECTION 03/28/2011 RONAL CAMARGO MD 465.9 UPPER RESPIRATORY INFECTION 03/28/2011 FRANCHESCA WILLIS, EUGENE Paz 465.9 UPPER RESPIRATORY INFECTION 08/14/2011 RONAL CAMARGO [...] OF FOOT AND TOE(S) WITHOUT INFECTION 08/14/2011 KALE DPM, EUGENIA 917.2 BLISTER OF FOOT AND TOE(S) WITHOUT INFECTION 08/14/2011 KALE HATHAWAY, EUGENIA 917.2 BLISTER OF FOOT AND TOE(S) WITHOUT INFECTION 08/14/2011 RONAL CAMARGO MD 917.2 BLISTER OF FOOT AND TOE(S) WITHOUT INFECTION 08/14/2011 RONAL CAMARGO MD 917.2 BLISTER OF FOOT AND TOE(S) WITHOUT INFECTION 08/14/2011 FRANCHESCA WILLIS, EUGENE Paz 917.2 BLISTER OF FOOT AND TOE(S) WITHOUT INFECTION 08/14/2011 RONAL CAMARGO MD 917.2 BLISTER OF FOOT AND TOE(S) WITHOUT INFECTION 08/14/2011 JORGE CHEMICAL PROCESSING EQUIPMENT REPAIRER, ANA ROSA Yates 917.2 BLISTER OF FOOT AND TOE(S) WITHOUT [...] RONAL CAMARGO MD 724.5 BACKACHE UNSPECIFIED 10/27/2011 KALE DPM, EUGENIA 724.5 BACKACHE UNSPECIFIED 10/27/2011 KALE DPM, EUGENIA 724.5 BACKACHE UNSPECIFIED 10/27/2011 RAMAN FLOYD, RONAL 724.5 BACKACHE UNSPECIFIED 10/27/2011 RAMAN FLOYD, RONAL 724.5 BACKACHE UNSPECIFIED 10/27/2011 FRANCHESCA WILLIS, EUGENE Paz 724.5 BACKACHE UNSPECIFIED 10/27/2011 RAMAN FLOYD, RONAL 724.5 BACKACHE UNSPECIFIED 10/27/2011 JORGE LUCERO, ANA ROSA R 724.5 BACKACHE UNSPECIFIED 10/27/2011 RAMAN FLOYD, RONAL 724.5 BACKACHE UNSPECIFIED 10/27/2011 FRANCHESCA WILLIS, EUGENE Paz 724.5 BACKACHE UNSPECIFIED 12/25/2011 RAMAN FLOYD, RONAL 239.5 PROSTATE NEOPLASM 12/25/2011 RONAL CAMARGO MD 239.5 PROSTATE NEOPLASM 12/25/2011 239.5 PROSTATE NEOPLASM 12/25/2011 239.5 PROSTATE NEOPLASM 12/25/2011 239.5 PROSTATE NEOPLASM 12/25/2011 BG NARI DO K 239.5 PROSTATE NEOPLASM 12/25/2011 RAMAN FLOYD, RONAL 239.5 PROSTATE NEOPLASM 12/25/2011 RONAL CAMARGO MD 239.5 PROSTATE NEOPLASM 12/25/2011 RAMAN FLOYD, RONAL 239.5 PROSTATE NEOPLASM 12/25/2011 KALE DPM, EUGENIA 239.5 PROSTATE NEOPLASM 12/25/2011 KALE DPM, EUGENIA 239.5 PROSTATE NEOPLASM 12/25/2011 RONAL CAMARGO MD 239.5 PROSTATE NEOPLASM 12/25/2011 RONAL CAMARGO MD 239.5 PROSTATE NEOPLASM 12/25/2011 FRANCHESCA WILLIS, EUGENE Paz 239.5 PROSTATE NEOPLASM 12/25/2011 RONAL CAMARGO MD 239.5 PROSTATE NEOPLASM 12/25/2011 JORGE LUCERO, ANA ROSA R 239.5 PROSTATE NEOPLASM 12/25/2011 RONAL CAMARGO MD 239.5 PROSTATE NEOPLASM 12/25/2011 FRANCHESCA WILLIS, EUGENE Paz 239.5 PROSTATE NEOPLASM 12/20/2012 BG NAIR DO K V04.81 FLU SHOT 12/20/2012 RONAL CAMARGO MD V04.81 FLU SHOT 12/20/2012 RONAL CAMARGO MD V04.81 FLU SHOT 12/20/2012 RAMAN FLOYD, RONAL V04.81 FLU SHOT 12/20/2012 KALE DPM, EUGENIA V04.81 FLU SHOT 12/20/2012 KALE DPM, EUGENIA V04.81 FLU SHOT 12/20/2012 RAMAN [...] 401.9 HYPERTENSION NOS 01/01/2013 OSMIN FLOYD, ART Malone Ot 780.2 SYNCOPE AND COLLAPSE 01/01/2013 OSMIN FLOYD, ART Malone Ot 873.0 OPEN WOUND OF SCALP 01/01/2013 OSMIN FLOYD, ART Malone Ot E000.8 OTHER EXTERNAL CAUSE STATUS 01/01/2013 OSMIN FLOYD, ART Malone Ot E849.0 ACCIDENT IN HOME 01/01/2013 OSMIN FLOYD, ART Malone Ot E884.4 FALL FROM BED 01/01/2013 OSMIN FLOYD, ART T Ot V06.1 [id number], COMBINED [ 03/21/2013 RONAL CAMARGO MD 466.0 ACUTE BRONCHITIS 03/21/2013 RONAL CAMARGO MD 466.0 ACUTE BRONCHITIS 03/21/2013 KALE DPM, EUGENIA 466.0 ACUTE BRONCHITIS 03/21/2013 KALE DPM, EUGENIA 466.0 ACUTE BRONCHITIS 03/21/2013 RONAL CAMARGO MD 466.0 ACUTE BRONCHITIS 03/21/2013 RONAL CAMARGO MD 466.0 ACUTE BRONCHITIS 03/21/2013 FRANCHESCA WILLIS, EUGENE Paz 466.0 ACUTE BRONCHITIS 03/21/2013 RONAL CAMAGRO MD 466.0 ACUTE BRONCHITIS 03/21/2013 JORGE LUCERO, ANA ROSA R 466.0 ACUTE BRONCHITIS 03/21/2013 RONAL CAMARGO MD 466.0 ACUTE BRONCHITIS 03/21/2013 FRANCHESCA WILLIS, EUGENE Paz 466.0 ACUTE BRONCHITIS 08/02/2013 RONAL CAMARGO MD 401.1 BENIGN ESSENTIAL HYPERTENSION 08/02/2013 RONAL CAMARGO MD 578.1 BLOOD IN STOOL 08/02/2013 RONAL CAMARGO MD 401.1 BENIGN ESSENTIAL HYPERTENSION 08/02/2013 RONAL CAMARGO MD 578.1 BLOOD IN STOOL 08/02/2013 KALE DPM, EUGENIA 401.1 BENIGN ESSENTIAL HYPERTENSION 08/02/2013 KALE DPM, EUGENIA 578.1 BLOOD IN STOOL 08/02/2013 KALE DPM, EUGENIA 401.1 BENIGN ESSENTIAL HYPERTENSION 08/02/2013 KALE DPM, EUGENIA 578.1 BLOOD IN STOOL 08/02/2013 [...] MD 578.1 BLOOD IN STOOL 08/02/2013 JORGE LUCERO, ANA ROSA R 401.1 BENIGN ESSENTIAL HYPERTENSION 08/02/2013 JORGE LUCERO, ANA ROSA R 578.1 BLOOD IN STOOL 08/02/2013 RONAL CAMARGO MD 401.1 BENIGN ESSENTIAL HYPERTENSION 08/02/2013 RONAL CAMARGO MD 578.1 BLOOD IN STOOL 08/02/2013 FRANCHESCA SAMSONS, EUGENE Paz 401.1 BENIGN ESSENTIAL HYPERTENSION 08/02/2013 FRANCHESCA WILLIS, EUGENE Paz 578.1 BLOOD IN STOOL 10/18/2013 RONAL CAMARGO MD 700 CORNS AND CALLOSITIES 10/18/2013 RONAL CAMARGO MD 724.2 LUMBAGO 10/18/2013 KALE DPM, EUGENIA 700 CORNS AND CALLOSITIES 10/18/2013 KALE DPM, EUGENIA 724.2 LUMBAGO 10/18/2013 KALE DPM, EUGENIA 700 CORNS AND CALLOSITIES 10/18/2013 KALE DPM, EUGENIA 724.2 LUMBAGO 10/18/2013 RAMAN FLOYD, [...] RAMAN FLOYD, RONAL 724.2 LUMBAGO 10/18/2013 JORGE CHEMICAL PROCESSING EQUIPMENT REPAIRER, ANA ROSA R 700 CORNS AND CALLOSITIES 10/18/2013 JORGE CHEMICAL PROCESSING EQUIPMENT REPAIRER, ANA ROSA R 724.2 LUMBAGO 10/18/2013 RAMAN FLOYD, RONAL 700 CORNS AND CALLOSITIES 10/18/2013 RAMAN FLOYD, RONAL 724.2 LUMBAGO 10/18/2013 FRANCHESCA DDS, EUGENE Paz 700 CORNS AND CALLOSITIES 10/18/2013 FRANCHESCA DDS, EUGENE Paz 724.2 LUMBAGO 12/09/2013 KALE DPM, EUGENIA 110.1 ONYCHOMYCOSIS 12/09/2013 KALE DPM, EUGENIA 707.15 ULCER-FOOT/TOES 12/09/2013 KALE DPM, EUGENIA 735.0 HALLUX VALGUS (ACQUIRED) 12/09/2013 KALE DPM, EUGENIA 110.1 ONYCHOMYCOSIS 12/09/2013 KALE DPM, EUGENIA 707.15 ULCER-FOOT/TOES 12/09/2013 KALE DPM, EUGENIA 735.0 HALLUX VALGUS (ACQUIRED) 12/09/2013 RONAL CAMARGO MD 110.1 ONYCHOMYCOSIS 12/09/2013 RONAL CAMARGO MD 707.15 ULCER-FOOT/TOES 12/09/2013 RONAL CAMARGO MD 735.0 HALLUX VALGUS (ACQUIRED) 12/09/2013 RONAL CAMARGO MD 110.1 ONYCHOMYCOSIS 12/09/2013 RONAL CAMARGO MD 707.15 ULCER-FOOT/TOES 12/09/2013 RONAL CAMARGO MD 735.0 HALLUX VALGUS (ACQUIRED) 12/09/2013 EUGENE SORENSEN DDS 110.1 ONYCHOMYCOSIS 12/09/2013 FRANCHESCA WILLIS, EUGENE Paz [...] 12/09/2013 EUGENE SORENSEN DDS 110.1 ONYCHOMYCOSIS 12/09/2013 FRANCHESCA WILLIS, EUGENE Paz 707.15 ULCER-FOOT/TOES 12/09/2013 FRANCHESCA WILLIS, EUGENE Paz 735.0 HALLUX VALGUS (ACQUIRED) 12/30/2013 EUGENIA BYNUM DPM 735.4 HAMMER TOE (ACQUIRED) 12/30/2013 RONAL CAMARGO MD 735.4 HAMMER TOE (ACQUIRED) 12/30/2013 RONAL CAMARGO MD5.4 HAMMER TOE (ACQUIRED) 12/30/2013 EUGENE SORENSEN DDS 735.4 HAMMER TOE (ACQUIRED) 12/30/2013 RONAL CAMARGO MD 735.4 HAMMER TOE (ACQUIRED) 12/30/2013 JORGE LUCERO, ANA ROSA R 735.4 HAMMER TOE (ACQUIRED) 12/30/2013 RONAL CAMARGO MD.4 HAMMER TOE (ACQUIRED) 12/30/2013 FRANCHESCA WILLIS, EUGENE [...] KYRIE Ot I25.10 ATHSCL HEART DISEASE OF [place] CORONARY 01/13/2018 EDWARD DO, KYRIE Ot I25.5 [...] KYRIE Ot I25.10 ATHSCL HEART DISEASE OF [place] CORONARY 01/13/2018 EDWARD DO, KYRIE Ot I25.5 [...] KYRIE Ot I25.10 ATHSCL HEART DISEASE OF [place] CORONARY 01/14/2018 EDWARD DO, KYRIE Ot I25.5 [...] KYRIE Ot I25.10 ATHSCL HEART DISEASE OF [place] CORONARY 01/15/2018 EDWARD DO, KYRIE Ot I25.5 [...] KYRIE Ot I25.10 ATHSCL HEART DISEASE OF [place] CORONARY 01/15/2018 CHEYANNE CLEMENT KYRI[place] Ot I25.5 ISCHEMIC CARDIOMYOPATHY 01/15/2018 CHEYANNE CLEMENT KYRI[place] Ot I50.21 ACUTE [...] HISTORY OF DIS OF THE BLD/BLD-FORM 01/15/2018 ALVERTO EDWARD DOI Ot D61.9 APLASTIC ANEMIA, UNSPECIFIED 01/15/2018 CHEYANNE CLEMENT [place] Ot E66.9 OBESITY, UNSPECIFIED 01/15/2018 CHEYANNE CLEMENT [place] Ot H91.13 PRESBYCUSIS, BILATERAL 01/15/2018 CHEYANNE CLEMENT [place] Ot I11.0 HYPERTENSIVE HEART DISEASE WITH HEART FA 01/15/2018 CHEYANNE CLEMENT [place] Ot I13.0 HYP HRT CHR KDNY DIS W HRT FAIL AND ST 01/15/2018 CHEYANNE CLEMENT KYRI[place] Ot I25.10 ATHSCL HEART DISEASE OF [place] CORONARY 01/15/2018 CHEYANNE CLEMENT KYRIE Ot I25.5 [...] SPECIFIED DISORDERS OF THE MALE GE 01/15/2018 ALVERTO EDWARD DOI Ot R33.9 RETENTION OF URINE, UNSPECIFIED 01/15/2018 CHEYANNE CLEMENT KYRIE Ot Z23 ENCOUNTER FOR IMMUNIZATION 01/15/2018 ALVERTO EDWARD DOI Ot Z68.27 BODY MASS INDEX (BMI) 27.0-27.9, ADULT 01/15/2018 ALVERTO EDWARD DOI Ot Z72.89 OTHER PROBLEMS RELATED TO LIFESTYLE 01/15/2018 CHEYANNE CLEMENT KY[place] Ot Z86.2 PRSNL HISTORY OF DIS OF THE BLD/BLD-FORM 01/25/2018 DEBBIE FUENTES APRN Ot G47.10 HYPERSOMNIA, UNSPECIFIED 01/28/2018 DEBBIE FUENTES APRN Ot G47.10 HYPERSOMNIA, UNSPECIFIED 01/28/2018 DEBBIE FUENTES APRN Ot G47.10 HYPERSOMNIA, UNSPECIFIED 01/30/2018 SAE FLOYD, SARAHI Flores Ot 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 01/30/2018 SAE FLOYD, SARAHI Flores Ot D75.1 SECONDARY POLYCYTHEMIA 01/30/2018 SAE FLOYD, SARAHI Flores Ot F41.9 ANXIETY DISORDER, UNSPECIFIED 01/30/2018 SAE FLOYD, SARAHI Flores Ot G47.33 OBSTRUCTIVE SLEEP APNEA (ADULT) (PEDIATR 01/30/2018 SAE FLOYD, SARAHI Flores Ot I13.0 HYP HRT CHR KDNY DIS W HRT FAIL AND ST 01/30/2018 SAE FLOYD, SARAHI Flores Ot I42.9 CARDIOMYOPATHY, UNSPECIFIED 01/30/2018 SAE FLOYD, SARAHI Flores Ot I50.22 CHRONIC SYSTOLIC (CONGESTIVE) HEART FAIL 01/30/2018 SAE FLOYD, SARAHI Flores Ot K40.30 UNIL INGUINAL HERNIA, W OBST, W/O GANGR, 01/30/2018 SAE FLOYD, SARAHI Flores Ot N17.9 ACUTE KIDNEY FAILURE, UNSPECIFIED 01/30/2018 SAE FLOYD, SARAHI Flores Ot N18.9 CHRONIC KIDNEY DISEASE, UNSPECIFIED 02/22/2018 Ot 287.5 02/22/2018 Ot 784.7 03/01/2018 JULIA COMBS MD Ot I25.10 ATHSCL HEART DISEASE OF [place] CORONARY 03/01/2018 JULIA COMBS MD Ot I34.0 NONRHEUMATIC MITRAL (VALVE) INSUFFICIENC 03/01/2018 JULIA COMBS MD Ot I35.8 OTHER NONRHEUMATIC AORTIC VALVE DISORDER 03/01/2018 JULIA COMBS MD Ot I50.9 HEART FAILURE, UNSPECIFIED 03/20/2018 JULIA COMBS MD Ot I25.10 ATHSCL HEART DISEASE OF [place] CORONARY 03/20/2018 JULIA COMBS MD Ot I34.0 NONRHEUMATIC MITRAL (VALVE) INSUFFICIENC 03/20/2018 JULIA COMBS MD Ot I35.8 OTHER NONRHEUMATIC AORTIC VALVE DISORDER 03/20/2018 JULIA COMBS MD Ot I50.9 HEART FAILURE, UNSPECIFIED 05/21/2018 Ot 287.5 05/21/2018 Ot 784.7 07/21/2018 Ot 287.5 07/21/2018 Ot 784.7 08/06/2018 JULIA COMBS MD Ot I25.10 ATHSCL HEART DISEASE OF [place] CORONARY 08/06/2018 JULIA COMBS MD Ot I34.0 NONRHEUMATIC MITRAL (VALVE) INSUFFICIENC 08/06/2018 JULIA COMBS MD Ot I35.8 OTHER NONRHEUMATIC AORTIC VALVE DISORDER 08/06/2018 JULIA COMBS MD Ot I50.9 HEART FAILURE, UNSPECIFIED Procedures Code [place] [id number] ROUTINE VENIPUNCTURE 04/27/2012 27294 CMP 04/27/2012 [id number] GFR CALC (RESULT ONLY) 04/27/2012 G0008 FLU ADMINISTRATION (MEDICARE ONLY) 12/20/2012 46400 ROUTINE VENIPUNCTURE 08/02/2013 [id number] GFR CALC (RESULT ONLY) 08/02/2013 43731 CMP 08/02/2013 99573 CBC 08/02/2013 23606 ROUTINE VENIPUNCTURE 10/18/2013 Podiatry Kale, Eugenia 10/18/2013 [id number] GFR CALC (RESULT ONLY) 10/18/2013 24971 BMP 10/18/2013 97669 DEBRIDE NAIL >6 12/09/2013 69782 ROUTINE VENIPUNCTURE 04/12/2014 21378 CBC 04/12/2014 13719 ROUTINE VENIPUNCTURE 07/10/2014 15487 PSA TOTAL 07/10/2014 [id number] MEASURE OF CARDIAC SAMPL PRESSURE, L H 01/13/2018 [id number] MEASUREMENT OF ARTERIAL PRESSURE, CAMP 01/13/2018 [id number] FLUOROSCOPY OF MULT COR ART USING L OSM 01/13/2018 [id number] FLUOROSCOPY OF LEFT HEART USING LOW OSMO 01/13/2018 [id number] EXCISION OF RIGHT INGUINAL REGION, OPEN 01/30/2018 [id number] SUPPLEMENT R INGUINAL REGION WITH SYNTH 01/30/2018 Results Test Result Range PSA - 02/17/17 10:26 PSA, TOTAL 0.8 ng/mL < OR=4.0 CMP - 09/10/17 14:02 GLUCOSE 93 mg/dL 65-99 UREA NITROGEN (BUN) 23 mg/dL 7-25 CREATININE 1.15 mg/dL 0.70-1.18 eGFR NON-AFR. DUTCH 62 mL/min/1.73m2 > OR=60 eGFR 72 mL/min/1.73m2 [...] Automated erythrocyte mean corpuscular hemoglobin concentration measurement (mass/volume) 33 g/dL 32-36 Automated erythrocyte distribution width ratio 15.6 % 10.0- 14.5 Automated blood platelet count (count/volume) 170 10*3/uL [...] Blood monocytes automated count (number/volume) 0.8 10*3 0.0- 1.0 Automated eosinophil count 0.0 10*3/uL 0.0-0.3 Automated [...] Serum or plasma aspartate aminotransferase measurement (enzymatic activity/volume) 20 U/L 5-34 Serum or plasma alanine aminotransferase measurement (enzymatic activity/volume) 20 U/L 0-55 Serum or plasma protein measurement (mass/volume) 6.6 g/dL 6.4-8.2 Serum or plasma albumin measurement (mass/volume) 4.0 g/dL 3.2-4.5 CALCIUM CORRECTED 9.4 mg/dL 8.5-10.1 Magnesium - 01/12/18 12:25 Magnesium 2.0 mg/dL 1.8-2.4 Serum or plasma troponin i.cardiac measurement (mass/volume) - 01/12/18 12:25 Serum or plasma troponin i.cardiac measurement (mass/volume) < ng/mL <0.30 Myoglobin, serum - 01/12/18 12:25 Myoglobin, serum 82.4 ng/mL 10.0-92.0 Serum or plasma lithium measurement (moles/volume) - 01/12/18 12:25 BNP level 3634.8 pg/mL <100.0 Methicillin resistant Staphylococcus aureus (MRSA) screening culture - 01/12/18 17:10 Methicillin resistant Staphylococcus aureus (MRSA) screening [...] Automated erythrocyte mean corpuscular hemoglobin concentration measurement (mass/volume) 35 g/dL 32-36 Automated erythrocyte distribution width ratio 15.0 % 10.0- 14.5 Automated blood platelet count (count/volume) 172 10*3/uL [...] Blood monocytes automated count (number/volume) 1.0 10*3 0.0- 1.0 Automated eosinophil count 0.1 10*3/uL 0.0-0.3 Automated [...] Serum or plasma aspartate aminotransferase measurement (enzymatic activity/volume) 18 U/L 5-34 Serum or plasma alanine aminotransferase measurement (enzymatic activity/volume) 18 U/L 0-55 Serum or plasma protein measurement (mass/volume) 5.4 g/dL 6.4-8.2 Serum or plasma albumin measurement (mass/volume) 3.3 g/dL 3.2-4.5 CALCIUM CORRECTED 9.5 mg/dL 8.5-10.1 Magnesium - 01/13/18 04:57 Magnesium 1.8 mg/dL 1.8-2.4 Serum or plasma troponin i.cardiac measurement (mass/volume) - 01/13/18 04:57 Serum or plasma troponin i.cardiac measurement (mass/volume) < ng/mL <0.30 Lipid 1996 panel - 01/13/18 04:57 Serum or plasma triglyceride measurement (mass/volume) 61 mg/dL <150 Serum or plasma cholesterol measurement (mass/volume) 116 mg/dL < 200 Serum or plasma cholesterol in HDL measurement (mass/volume) 46 mg/dL 40-60 Cholesterol in LDL [mass/volume] in serum or plasma by direct assay 58 mg/dL 1-129 Serum or plasma cholesterol in VLDL measurement (mass/volume) 12 mg/dL 5-40 THYROID STIMULATING HORMONE - 01/13/18 04:57 [...] Automated erythrocyte mean corpuscular hemoglobin concentration measurement (mass/volume) 34 g/dL 32-36 Automated erythrocyte distribution width ratio 14.6 % 10.0- 14.5 Automated blood platelet count (count/volume) 150 10*3/uL [...] Blood monocytes automated count (number/volume) 1.0 10*3 0.0- 1.0 Automated eosinophil count 0.0 10*3/uL 0.0-0.3 Automated [...] Serum or plasma aspartate aminotransferase measurement (enzymatic activity/volume) 15 U/L 5-34 Serum or plasma alanine aminotransferase measurement (enzymatic activity/volume) 15 U/L 0-55 Serum or plasma protein [...] Automated erythrocyte mean corpuscular hemoglobin concentration measurement (mass/volume) 34 g/dL 32-36 Automated erythrocyte distribution width ratio 14.8 % 10.0- 14.5 Automated blood platelet count (count/volume) 165 10*3/uL [...] Blood monocytes automated count (number/volume) 0.8 10*3 0.0- 1.0 Automated eosinophil count 0.1 10*3/uL 0.0-0.3 Automated [...] Serum or plasma aspartate aminotransferase measurement (enzymatic activity/volume) 19 U/L 5-34 Serum or plasma alanine aminotransferase measurement (enzymatic activity/volume) 16 U/L 0-55 Serum or plasma protein [...] blood base excess by calculation 7.8 mmol/L -2.5-2.5 Arterial blood oxygen saturation measurement 96 % 94-100 * Inhaled oxygen flow rate RA NRG Arterial blood pH measurement with patient temperature correction 7.49 7.37-7.43 Arterial blood carbon dioxide, total measurement (moles/volume) 32.9 mmol/L 21.0-31.0 Body site L RAD NRG Assessment of wrist artery patency prior to arterial puncture YES-POS NRG Setting of ventilation mode NO NRG Measurement of body temperature 97.7 NRG [facility] - 01/21/18 10:30 GLUCOSE 74 mg/dL 65-99 UREA NITROGEN (BUN) 36 mg/dL 7-25 CREATININE 2.17 mg/dL 0.70-1.18 eGFR NON-AFR. DUTCH 29 mL/min/1.73m2 > OR=60 eGFR 33 mL/min/1.73m2 [...] Automated erythrocyte mean corpuscular hemoglobin concentration measurement (mass/volume) 34 g/dL 32-36 Automated erythrocyte distribution width ratio 15.5 % 10.0- 14.5 Automated blood platelet count (count/volume) 196 10*3/uL [...] Blood monocytes automated count (number/volume) 1.1 10*3 0.0- 1.0 Automated eosinophil count 0.1 10*3/uL 0.0-0.3 Automated [...] Serum or plasma aspartate aminotransferase measurement (enzymatic activity/volume) 24 U/L 5-34 Serum or plasma alanine aminotransferase measurement (enzymatic activity/volume) 26 U/L 0-55 Serum or plasma protein measurement (mass/volume) 7.1 g/dL 6.4-8.2 Serum or plasma albumin measurement (mass/volume) 4.2 g/dL 3.2-4.5 CALCIUM CORRECTED 9.5 mg/dL 8.5-10.1 Methicillin resistant Staphylococcus aureus (MRSA) screening culture - 01/30/18 04:00 Methicillin resistant Staphylococcus aureus (MRSA) screening culture NEG NRG Complete blood count (CBC) with automated white blood cell (WBC) differential - 01/30/18 05:39 Blood leukocytes automated count (number/volume) 13.2 10*3/uL 4.3-11.0 Blood erythrocytes automated count (number/volume) 6.36 10*6/uL 4.35-5.85 Venous blood hemoglobin measurement (mass/volume) 19.0 g/dL 13.3-17.7 Blood hematocrit (volume fraction) 55 % 40-54 Automated erythrocyte mean corpuscular volume 86 [foz_us] 80-99 Automated erythrocyte mean corpuscular hemoglobin (mass per erythrocyte) 30 pg 25-34 Automated erythrocyte mean corpuscular hemoglobin concentration measurement (mass/volume) 35 g/dL 32-36 Automated erythrocyte distribution width ratio 14.8 % 10.0- 14.5 Automated blood platelet count (count/volume) 203 10*3/uL 130-400 Automated blood platelet mean volume measurement 9.7 [foz_us] 7.4-10.4 Automated blood neutrophils/100 leukocytes 91 % 42-75 Automated blood lymphocytes/100 leukocytes 6 % 12-44 Blood monocytes/100 leukocytes 3 % 0-12 Automated blood eosinophils/100 leukocytes 0 % 0-10 Automated blood basophils/100 leukocytes 0 % 0-10 Blood neutrophils automated count (number/volume) 11.9 10*3 1.8-7.8 Blood lymphocytes automated count (number/volume) 0.8 10*3 1.0-4.0 Blood monocytes automated count (number/volume) 0.4 10*3 0.0- 1.0 Automated eosinophil count 0.0 10*3/uL 0.0-0.3 Automated blood basophil count (count/volume) 0.0 10*3/uL 0.0-0.1 Whole blood basic metabolic panel - 01/30/18 05:39 Serum or plasma sodium measurement (moles/volume) 135 mmol/L 135-145 Serum or plasma potassium measurement (moles/volume) 4.6 mmol/L 3.6-5.0 Serum or plasma chloride measurement (moles/volume) 101 mmol/L 98-107 Carbon dioxide 22 mmol/L 21-32 Serum or plasma anion gap determination (moles/volume) 12 mmol/L 5-14 Serum or plasma urea nitrogen measurement (mass/volume) 30 mg/dL 7-18 Serum or plasma creatinine measurement (mass/volume) 1.33 mg/dL 0.60-1.30 Serum or plasma urea nitrogen/creatinine mass ratio 23 NRG Serum or plasma creatinine measurement with calculation of estimated glomerular filtration rate 52 NRG Serum or plasma glucose measurement (mass/volume) 115 mg/dL 70-105 Serum or plasma calcium measurement (mass/volume) 9.6 mg/dL 8.5-10.1 Serum or plasma phosphate measurement (mass/volume) - 01/30/18 05:39 Serum or plasma phosphate measurement (mass/volume) 2.2 mg/dL 2.3-4.7 Magnesium - 01/30/18 05:39 Magnesium 2.0 mg/dL 1.8-2.4 Blood manual differential performed detection - 01/30/18 05:39 Blood monocytes/100 leukocytes 3 % NRG Manual blood segmented neutrophils/100 leukocytes 94 % NRG Manual blood lymphocytes/100 leukocytes 3 % NRG CMP - 03/02/18 11:41 GLUCOSE 90 mg/dL 65-99 UREA NITROGEN (BUN) 29 mg/dL 7-25 CREATININE 1.45 mg/dL 0.70-1.18 eGFR NON-AFR. DUTCH 47 mL/min/1.73m2 > OR=60 eGFR 54 mL/min/1.73m2 > OR=60 BUN/CREATININE RATIO 20 (calc) 6-22 SODIUM 132 mmol/L 135-146 POTASSIUM 5.2 mmol/L 3.5-5.3 CHLORIDE 100 mmol/L 98-110 CARBON DIOXIDE 29 mmol/L 20-32 CALCIUM 9.6 mg/dL 8.6-10.3 PROTEIN, TOTAL 6.5 g/dL 6.1-8.1 ALBUMIN 4.3 g/dL 3.6-5.1 GLOBULIN 2.2 g/dL (calc) 1.9-3.7 ALBUMIN/GLOBULIN RATIO 2.0 (calc) 1.0-2.5 BILIRUBIN, TOTAL 1.1 mg/dL 0.2-1.2 ALKALINE PHOSPHATASE 106 U/L 40-115 AST 16 U/L 10-35 ALT 13 U/L 9-46 Encounters ACCT No. Visit Date/Time Discharge Status Pt. Type Provider Facility Loc./Unit Complaint [id number] 07/14/2014 10:11:00 07/14/2014 23:59:59 CLS Outpatient EUGENE SORENSEN DDS [id number] 07/10/2014 13:10:00 07/10/2014 23:59:59 CLS Outpatient RONAL CAMARGO MD [id number] 05/02/2014 12:53:00 05/02/2014 23:59:59 CLS Outpatient RONAL CAMARGO MD [id number] 04/21/2014 13:42:00 04/21/2014 23:59:59 CLS Outpatient EUGENE SORENSEN DDS [id number] 04/13/2014 11:22:00 04/13/2014 23:59:59 CLS Outpatient ANA ROSA PATEL APRN [id number] 04/12/2014 13:28:00 04/12/2014 23:59:59 CLS Outpatient RONAL CAMARGO MD [id number] 03/02/2014 14:21:00 03/02/2014 23:59:59 CLS Outpatient RONAL CAMARGO MD [id number] 12/30/2013 08:17:00 12/30/2013 23:59:59 CLS Outpatient EUGENIA BYNUM DPM [id number] 12/09/2013 07:37:00 12/09/2013 23:59:59 CLS Outpatient EUGENIA BYNUM DPM [id number] 10/18/2013 10:46:00 10/18/2013 23:59:59 CLS Outpatient RONAL CAMARGO MD [id number] 08/02/2013 10:39:00 08/02/2013 23:59:59 CLS Outpatient RONAL CAMARGO MD [id number] 02/03/2013 10:39:00 02/03/2013 23:59:59 CLS Outpatient RONAL CAMARGO MD [id number] 12/20/2012 13:21:00 12/20/2012 23:59:59 CLS Outpatient BG NAIR DO [id number] 04/27/2012 13:45:00 04/27/2012 23:59:59 CLS Outpatient [id number] 04/27/2012 13:45:00 04/27/2012 23:59:59 CLS Outpatient [id number] 12/25/2011 15:56:00 12/25/2011 23:59:59 CLS Outpatient RONAL CAMARGO MD [id number] 12/25/2011 15:56:00 12/25/2011 23:59:59 CLS Outpatient RONAL CAMARGO MD [id number] 08/19/2012 13:57:00 Document Registration [id number] 02/25/2018 09:57:00 02/25/2018 23:59:59 CLS Outpatient JULIA COMBS MD [facility] CARD [facility] [id number] 01/29/2018 22:15:00 01/30/2018 17:10:00 DIS Inpatient SAE FLOYD, SARAHI Flores [facility] ICU INCARCERATED INGUINAL HERNIA,[facility] [id number] 01/28/2018 21:00:00 01/28/2018 23:59:59 CLS Preadmit DEBBIE FUENTES APRN [facility] SLEEP CARDIOMYOPATHY [id number] 01/12/2018 13:37:00 01/15/2018 13:45:00 DIS Inpatient KYRIE EDWARD DO [facility] 4TH ACUTE HEART FAILURE;SCROTAL WOUND [id number] 01/01/2013 10:00:00 01/01/2013 13:04:00 DIS Emergency OSMIN FLOYD, ART Malone [facility] ER FALL [id number] 08/06/2018 15:24:00 ACT Emergency KURT FLOYD, ANDREWS Caro [facility] ER FS WC FALL [id number] 01/15/2018 10:06:00 Document Registration [id number] 05/28/2006 05:51:00 Document Registration [id number] 07/20/2018 12:55:00 07/20/2018 23:59:59 CLS Outpatient RAMAN FLOYD, RONAL [facility] [id number] 03/02/2018 11:00:00 Document Registration [id number] 01/21/2018 09:40:00 Document Registration [id number] 09/10/2017 14:00:00 Document Registration [id number] 02/17/2017 10:00:00 Document Registration
== END 2018-08-06 16:37 | disposition home or self-care (01) ==
LOC: EDUNIT# 15:22 → ER FS 15:24
DX: S09.90XA Unspecified injury of head, initial encounter (principal); S60.221A Contusion of right hand, initial encounter; S70.11XA Contusion of right thigh, initial encounter; I42.9 Cardiomyopathy, unspecified; I10 Essential (primary) hypertension; D64.9 Anemia, unspecified; Z87.19 Personal history of other diseases of the digestive system; Z98.890 Other specified postprocedural states; Z82.49 Family history of ischemic heart disease and other diseases of the circulatory system; W01.198A Fall on same level from slipping, tripping and stumbling with subsequent striking against other object, initial encounter; Y92.59 Other trade areas as the place of occurrence of the external cause; Y99.0 Civilian activity done for income or pay
CPT/HCPCS: 99282

== ENCOUNTER 2020-05-17 13:44 | Emergency (ER) | payer MEDICARE, OTHER ==
[~2020-05-17] VITALS: Ht 170 cm; Wt 72.0 kg
[~2020-05-17 13:44] MED LIST changes: -HYDR-3812 PO; -METO-387 PO; +MTP25TSR PO
[2020-05-17 14:13] LABS: BASOPHILS % (AUTO) 0 % (0-10); EOSINOPHILS % (AUTO) 0 % (0-10); HEMATOCRIT 49 % (40-54); HEMOGLOBIN 16.1 g/dL (13.3-17.7); LYMPHOCYTES % (AUTO) 12 % (12-44); MEAN CORPUSCULAR HEMOGLOBIN 30 pg (25-34); MEAN CORPUSCULAR HGB CONC 33 g/dL (32-36); MEAN CORPUSCULAR VOLUME 89 fL (80-99); MEAN PLATELET VOLUME 9.6 fL (9.0-12.2); MONOCYTES # (AUTO) 0.7 10^3/uL (0.0-1.0); MONOCYTES % (AUTO) 8 % (0-12); NEUTROPHILS % (AUTO) 79 % (42-75); PLATELET COUNT 207 10^3/uL (130-400); WHITE BLOOD COUNT 8.8 10^3/uL (4.3-11.0)
[2020-05-17 14:16] LABS: ALBUMIN 4.1 GM/DL (3.2-4.5); CHLORIDE 98 MMOL/L (98-107); POTASSIUM 4.2 MMOL/L (3.6-5.0); SODIUM 134 MMOL/L (135-145)
[2020-05-17 14:17] LABS: CALCIUM 9.1 MG/DL (8.5-10.1)
[2020-05-17 14:18] LABS: GLUCOSE 114 MG/DL (70-105); TOTAL PROTEIN 7.3 GM/DL (6.4-8.2)
[2020-05-17 14:19] LABS: CARBON DIOXIDE 22 MMOL/L (21-32)
[2020-05-17 14:20] LABS: BILIRUBIN,TOTAL 1.1 MG/DL (0.1-1.0)
[2020-05-17 14:22] LABS: ALKALINE PHOSPHATASE 84 U/L (40-136); CREATININE SERUM 1.81 MG/DL (0.60-1.30); GFR ESTIMATED 37
[2020-05-17 14:23] LABS: BUN/CREATININE RATIO 17; FIBRIN DEGRADATION PRODUCTS 0.3 UG/ML (0.00-0.49); PROTHROMBIN TIME PATIENT 14.1 SEC (12.2-14.7)
[2020-05-17 14:25] LABS: ALANINE AMINOTRANSFERASE 11 U/L (0-55)
--- NOTE | 2020-05-17 14:25 | ED Neurological Problem ---
General Chief Complaint: Neuro-Stroke Like Symptoms Stated Complaint: SLURRED SPEECH, FELL History of Present Illness Date Seen by Provider: May 17, 2020 Time Seen by Provider: 13:49 Initial Comments 79-year-old male brought by his son-in-law for stuttering and inability to feed himself at noon. His events of today include [facility], sustaining a fall and required 2 people to assist getting him up. He denies LOC. Then he went to [facility] for back pain, fall and stuttering, he is on Hydrocodone chronically 4 times daily for back pain. He was prescribed Flexerile 10 mg and took one. He then went to [facility] at noon and couldn't feed himself with his left hand, he is left hand dominant. He normally has a slightly unsteady gait, but more noticeable today. He reports he ate breakfast this a.m. with no difficulty. He denies any pain. No obvious facial drooping, speech and events of today clear. Spoke to [facility] they report he has stuttering speech and shuffling gait for some time. He has not seen Dr. Camargo in 1 year and quit taking his Losartan. Timing/Duration: 4-6 hours Associated Symptoms: No confusion, No loss of consciousness, No muscle spasms; slurred speech; No trouble walking, No vision changes; weakness (reported earlier today) Allergies and Home Medications Allergies Coded Allergies: Leonides Known Allergies (Verified Allergy, Unknown, 05/28/06) Home Medications Ciprofloxacin HCl 500 Mg Tablet, 500 MG PO BID Prescribed by: EDITA KERNS on 05/17/20 1546 Furosemide 40 Mg Tablet, 40 MG PO DAILY Prescribed by: JULIA COMBS on 01/15/18 0816 Hydrocodone Bit/Acetaminophen 1 Each Tablet, 1 TAB PO TID PRN for PAIN-MODERATE, (Reported) Hydrocodone Bit/Acetaminophen 1 Tab Tab, 1 TAB PO Q6H PRN for PAIN-MODERATE Prescribed by: SARAHI QUEVEDO on 01/30/18 1106 Hydrocodone Bit/Acetaminophen 1 Tab Tab, 1 TAB PO Q6H PRN for PAIN-MODERATE Prescribed by: SARAHI QUEVEDO on 01/30/18 1111 Hydrocodone Bit/Acetaminophen 1 Tab Tab, 1 TAB PO Q6H PRN for PAIN-MODERATE Prescribed by: SARAHI QUEVDEO on 01/30/18 1138 Losartan Potassium 50 Mg Tablet, 50 MG PO DAILY Prescribed by: JULIA COMBS on 01/15/18 0816 Metoprolol Succinate 25 Mg Tab.er.24h, 25 MG PO DAILY Prescribed by: JULIA COMBS on 01/15/18 0816 Potassium Chloride 20 Meq Tablet.er, 20 MEQ PO DAILY Prescribed by: JULIA COMBS on 01/15/18 0821 Patient Home Medication List Home Medication List Reviewed: Yes Review of Systems Review of Systems Constitutional: no symptoms reported, see HPI Eyes: No Symptoms Reported, See HPI; Denies Blurred Vision, Denies Vision Changes Ears, Nose, Mouth, Throat: no symptoms reported, see HPI Respiratory: no symptoms reported, see HPI Cardiovascular: no symptoms reported, see HPI Gastrointestinal: no symptoms reported, see HPI Musculoskeletal: see HPI, other (mild gait changes) Skin: no symptoms reported, see HPI Psychiatric/Neurological: No Symptoms Reported, See HPI, Weakness (left arm ) Endocrine: No Symptoms Reported, See HPI All Other Systems Reviewed Negative Unless Noted: Yes Past Rkzpsxb-Adhzqv-Aqiqaj Hx Past Med/Social Hx: Reviewed Nursing Past Med/Soc Hx Patient Social History Alcohol Beverage of Choice: Beer 2nd Hand Smoke Exposure: No Recent Hopitalizations: Yes Immunizations Up To Date Tetanus Booster (TDap): More than 5yrs Date of Influenza Vaccine: Dec 30, 2017 Seasonal Allergies Seasonal Allergies: No Past Medical History Surgeries: Yes Cardiac Respiratory: No Cardiac: Yes (LIFE VEST) Cardiomyopathy, Hypertension Neurological: No Reproductive Disorders: No Genitourinary: Yes (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 No Pertinent Family Hx, Hypertension Physical Exam Vital Signs Vital Signs - First Documented 05/17/20 13:49 Temp 36.3 Pulse 64 Resp 18 B/P (MAP) 176/88 (117) Pulse Ox 97 Capillary Refill : Height, Weight, BMI Height: 5'6.00" Weight: 165lbs. 4.0oz. 74.345755bw; 23.5 BMI Method:Stated General Appearance: WD/WN, no apparent distress HEENT: PERRL/EOMI, normal ENT inspection, TMs normal, pharynx normal Neck: non-tender, full range of motion, supple, normal inspection Respiratory: chest non-tender, lungs clear, normal breath sounds, no respiratory distress Cardiovascular: normal peripheral pulses, regular rate, rhythm Gastrointestinal: normal bowel sounds, non tender Back: normal inspection, no CVA tenderness, no vertebral tenderness Extremities: normal range of motion, non-tender, normal inspection, no pedal edema, no calf tenderness, normal capillary refill Neurologic/Psychiatric: spinning frame cleaner II-XII nml as tested, no motor/sensory deficits, alert, normal mood/affect, oriented x 3 Crainal Nerves: normal hearing, normal speech, PERRL Coordination/Gait: normal finger to nose, normal gait Motor/Sensory: no motor deficit, no sensory deficit, no pronator drift Skin: normal color, warm/dry Lymphatic: no adenopathy Stroke Onset of Symptoms Date of Onset of Symptoms: May 17, 2020 Symptoms onset unknown: Yes (last 4-6 hours) NIH Stroke Scale Assessment Select: Initial Level of Consciousness: 0=Alert (0), Level of Consciousness- Questions: 0=Answers both month/age (0), LOC Commands: 0=Performs both tasks (0), Gaze: Normal (0), Visual Villavicencio: 0=No visual loss (0), Facial Movement (Facial Paresis): 1=Minor paralysis trace droop on right corner of mouth with smile (1), Motor Function-Arms Right: 0=No drift (0), Motor Function-Arms Left: 0=No drift (0), Motor Function-Legs Right: 0=No drift (0), Motor Function-Legs Left: 0=No drift (0), Limb Ataxia: 0=Absent (0), Sensory: 0=Normal:no loss (0), Best Language: 0=No aphasia (0), Dysarthria: 0=Normal (0), Extinction & Inattention: 0=No abnormality (0), Total: 1 Progress/Results/Core Measures Results/Orders Lab Results Laboratory Tests Test 05/17/20 13:55 05/17/20 15:07 Range/Units White Blood Count 8.8 4.3-11.0 10^3/uL Red Blood Count 5.44 4.30-5.52 10^6/uL Hemoglobin 16.1 13.3-17.7 g/dL Hematocrit 49 40-54 % Mean Corpuscular Volume 89 80-99 fL Mean Corpuscular Hemoglobin 30 25-34 pg Mean Corpuscular Hemoglobin Concent 33 32-36 g/dL Red Cell Distribution Width 13.6 10.0-14.5 % Platelet Count 207 130-400 10^3/uL Mean Platelet Volume 9.6 9.0-12.2 fL Immature Granulocyte % (Auto) 1 % Neutrophils (%) (Auto) 79 H 42-75 % Lymphocytes (%) (Auto) 12 12-44 % Monocytes (%) (Auto) 8 0-12 % Eosinophils (%) (Auto) 0 0-10 % Basophils (%) (Auto) 0 0-10 % Neutrophils # (Auto) 7.0 1.8-7.8 10^3/uL Lymphocytes # (Auto) 1.0 1.0-4.0 10^3/uL Monocytes # (Auto) 0.7 0.0-1.0 10^3/uL Eosinophils # (Auto) 0.0 0.0-0.3 10^3/uL Basophils # (Auto) 0.0 0.0-0.1 10^3/uL Immature Granulocyte # (Auto) 0.1 0.0-0.1 10^3/uL Prothrombin Time 14.1 12.2-14.7 SEC INR Comment 1.0 0.8-1.4 Activated Partial Thromboplast Time 27 24-35 SEC D-Dimer 0.30 0.00-0.49 UG/ML Sodium Level 134 L 135-145 MMOL/L Potassium Level 4.2 3.6-5.0 MMOL/L Chloride Level 98 98-107 MMOL/L Carbon Dioxide Level 22 21-32 MMOL/L Anion Gap 14 5-14 MMOL/L Blood Urea Nitrogen 31 H 7-18 MG/DL Creatinine 1.81 H 0.60-1.30 MG/DL Estimat Glomerular Filtration Rate 37 BUN/Creatinine Ratio 17 Glucose Level 114 H 70-105 MG/DL Glucometer 123 H 70-110 MG/DL Calcium Level 9.1 8.5-10.1 MG/DL Corrected Calcium 9.0 8.5-10.1 MG/DL Total Bilirubin 1.1 H 0.1-1.0 MG/DL Aspartate Amino Transf (AST/SGOT) 16 5-34 U/L Alanine Aminotransferase (ALT/SGPT) 11 0-55 U/L Alkaline Phosphatase 84 40-136 U/L Troponin I < 0.028 <0.028 NG/ML Total Protein 7.3 6.4-8.2 GM/DL Albumin 4.1 3.2-4.5 GM/DL Urine Color YELLOW Urine Clarity CLEAR Urine pH 5.5 5-9 Urine Specific [place] >=1.030 1.016-1.022 Urine Protein 2+ H NEGATIVE Urine Glucose (UA) NEGATIVE NEGATIVE Urine Ketones TRACE H NEGATIVE Urine Nitrite NEGATIVE NEGATIVE Urine Bilirubin 1+ H NEGATIVE Urine Urobilinogen 1.0 < = 1.0 MG/DL Urine Leukocyte Esterase NEGATIVE NEGATIVE Urine RBC (Auto) NEGATIVE NEGATIVE Urine RBC NONE /HPF Urine WBC 5-10 H /HPF Urine Crystals PRESENT H /LPF Urine Amorphous Sediment FEW KELLY URATES H /LPF Urine Bacteria TRACE /HPF Urine Casts PRESENT /LPF Urine Hyaline Casts 5-10 H /LPF Urine Mucus NEGATIVE /LPF Urine Culture Indicated NO My Orders Orders - EDITA KERNS Cbc With Automated Diff (05/17/20 13:54) Protime With Inr (05/17/20 13:54) Partial Thromboplastin Time (05/17/20 13:54) Comprehensive Metabolic Panel (05/17/20 13:54) Fibrin Degradation Products (05/17/20 13:54) Troponin I (05/17/20 13:54) Ua Culture If Indicated (05/17/20 13:54) Chest 1 View, Ap/Pa Only (05/17/20 13:54) Ekg Tracing (05/17/20 13:54) Nothing By Mouth (05/17/20 Lunch) Accucheck Stat ONCE (05/17/20 13:54) Ed Iv/Invasive Line Start (05/17/20 13:54) Vital Signs Stroke Patient Q15M (05/17/20 13:54) Ct Head Wo-R/O Stroke (05/17/20 13:54) Intake & Output 06,14,22 (05/17/20 13:54) Monitor-Rhythm Ecg Trace Only (05/17/20 13:54) Dysphagia Screening Tool (05/17/20 13:54) Ed Iv/Invasive Line Start (05/17/20 15:08) Ns Iv 1000 Ml (Sodium Chloride 0.9%) (05/17/20 15:15) Losartan Tablet (Cozaar Tablet) (05/17/20 15:15) Medications Given in ED Current Medications Medications Dose Ordered Sig/Anil Route Start Time Stop Time Status Last Admin Dose Admin Losartan Potassium 50 mg ONCE ONCE PO 05/17/20 15:15 05/17/20 15:16 DC 05/17/20 15:29 50 MG Vital Signs/I&O 05/17/20 05/17/20 13:49 16:21 Temp 36.3 36.3 Pulse 64 64 Resp 18 18 B/P (MAP) 176/88 (117) 176/88 (117) Pulse Ox 97 97 FSBG Bedside Testing Finger Stick Blood Glucose: 123 Blood Glucose Action Taken: REPORTED TO SHOPPING INSPECTOR Progress Progress Note : Time: 13:49 Progress Note Patient seen and evaluated, NIH 1. Will obtain CT of the head, chest x-ray EKG and labs. 1415 CT negative for acute findings, BUN and creatinine elevated unable to do angio. NIH 0, no drooping to face. Patient able to use a cup and spoon to feed himself ice chips. No weakness or neuro deficits. Daughter present, states he had more of a stutter on the phone when she spoke to him today. 1445 patient ambulated in room, steady gait. UA obtained. [address] Camargo for 05/21/20 1540 Patient has remained stable, conversing with daughter in room. Able to eat and drink with no assistance. Ambulated to the bathroom with steady gait and no weakness. Discussed at length with his daughter. He will spend the night with her and she will assure he gets to his appointment next week with Dr. Camargo. Discharge instructions and return precautions reviewed. All questions answered. Diagnostic Imaging Diagonstic Imaging: CT Plain Films/CT/US/NM/MRI: head Comments NAME: ROMANA BRIDGES [facility] REC#: [id number] PT STATUS: REG ER : 1940 PHYSICIAN: EDITA KERNS ADMIT DATE: 05/17/20/ER Draft Date of Exam:05/17/20 CT HEAD WO-R/O STROKE PROCEDURE: CT head wo r/o stroke. TECHNIQUE: Multiple contiguous axial images were obtained through the brain without the use of intravenous contrast. Auto Exposure Controls were utilized during the CT exam to meet ALARA standards for radiation dose reduction. INDICATION: Slurred speech and fall. COMPARISON: Correlation is made with prior CT head from 05/20/2010. FINDINGS: Ventricles and sulci are appropriate for the patient's age. There is no sulcal effacement or midline shift. There is moderate periventricular hypodensity noted consistent with chronic microvascular ischemia. No acute intra-axial or extra-axial hemorrhage is detected. Cisterns are patent. Visualized paranasal sinuses are clear. IMPRESSION: Senescent changes. No acute intracranial process is detected. Dictated on workstation # [id number] Dict: 05/17/20 1434 Trans: 05/17/201443 [facility] [id number] Interpreted by: DAVID VAZQUEZ MD Electronically signed by: Reviewed: Reviewed by Me Diagonstic Imaging: Xray Plain Films/CT/US/NM/MRI: chest Comments NAME: ROMANA BRIDGES [facility] REC#: [id number] PT STATUS: REG ER : 1940 PHYSICIAN: EDITA KERNS ADMIT DATE: 05/17/20/ER Draft Date of Exam:05/17/20 CHEST 1 VIEW, AP/PA ONLY INDICATION: Speech changes, stroke. COMPARISON: January 12, 2018. TECHNIQUE: Single radiograph of the chest dated May 17, 2020. FINDINGS: The cardiac silhouette is within normal limits in size. No significant pulmonary vascular congestion. The lungs are clear. No pleural effusion. No pneumothorax. No acute osseous abnormality. IMPRESSION: No acute cardiopulmonary abnormality. Dictated on workstation # [id number] Dict: 05/17/20 1440 Trans: 05/17/20 144 [facility] [id number] Interpreted by: PILAR TAYLOR MD Electronically signed by: Reviewed: Reviewed by Me Departure Impression Primary Impression: Fall Qualified Codes: W19.XXXA - Unspecified fall, initial encounter Additional Impression: UTI (urinary tract infection) Qualified Codes: N30.01 - Acute cystitis with hematuria Disposition: HOME, SELF-CARE Condition: Improved Departure-Patient Inst. Decision time for Depature: 15:40 Referrals: RONAL CAMARGO MD (PCP/Family) Primary Care Physician Patient Instructions: Preventing Falls, Urinary Tract Infection, Adult (DC) Add. Discharge Instructions: See Dr. Camargo Thursday05/21/20 at 1:40 at [facility]. Increase water intake. Drink one cup of Cranberry Juice daily or eat one cup of blueberries daily. Take antibiotics as prescribed. Consider a cane, for ambulation. Discontinue the Flexeril. Continue home medications. Return to the Emergency dept for new, urgent healthcare needs. All discharge instructions reviewed with patient and/or family. Voiced understanding. Scripts Ciprofloxacin HCl (Ciprofloxacin HCl) 500 Mg Tablet 500 MG PO BID, #6 TAB 0 Refills Prov: EDITA KERNS 05/17/20 Copy Copies To 1: RONAL CAMARGO MD, AMY ARNP May 17, 2020 14:25
--- NOTE | 2020-05-17 14:44 | Diagnostic Imaging Report ---
PROCEDURE: CT head wo r/o stroke. TECHNIQUE: Multiple contiguous axial images were obtained through the brain without the use of intravenous contrast. Auto Exposure Controls were utilized during the CT exam to meet ALARA standards for radiation dose reduction. INDICATION: Slurred speech and fall. COMPARISON: Correlation is made with prior CT head from 05/20/2010. FINDINGS: Ventricles and sulci are appropriate for the patient's age. There is no sulcal effacement or midline shift. There is moderate periventricular hypodensity noted consistent with chronic microvascular ischemia. No acute intra-axial or extra-axial hemorrhage is detected. Cisterns are patent. Visualized paranasal sinuses are clear. IMPRESSION: Senescent changes. No acute intracranial process is detected. Dictated by: Dictated on workstation # [id number]
--- NOTE | 2020-05-17 14:48 | Diagnostic Imaging Report ---
INDICATION: Speech changes, stroke. COMPARISON: January 12, 2018. TECHNIQUE: Single radiograph of the chest dated May 17, 2020. FINDINGS: The cardiac silhouette is within normal limits in size. No significant pulmonary vascular congestion. The lungs are clear. No pleural effusion. No pneumothorax. No acute osseous abnormality. IMPRESSION: No acute cardiopulmonary abnormality. Dictated by: Dictated on workstation # [id number]
[2020-05-17] MEDS ORDERED: NS IV 1000 ML 1,000 ML IV SCH (15:15)
[2020-05-17] MEDS ORDERED: LOSARTAN 50 MG (COZAAR) TAB PO ONE (15:15)
[2020-05-17 15:20] LABS: CLARITY,URINE CLEAR; COLOR,URINE YELLOW; GLUCOSE, URINE (UA) NEGATIVE (NEGATIVE); KETONES,URINE TRACE (NEGATIVE); LEUKOCYTE ESTERASE ,URINE NEGATIVE (NEGATIVE); NITRITE,URINE NEGATIVE (NEGATIVE); PH,URINE 5.5 (5-9); PROTEIN,URINE 2+ (NEGATIVE)
[2020-05-17 15:35] LABS: BACTERIA,URINE TRACE /HPF
[2020-05-17 15:36] LABS: AMORPHOUS SEDIMENT,UR FEW AMOR URATES /LPF
[2020-05-17 15:37] LABS: BILIRUBIN,URINE 1+ (NEGATIVE)
[2020-05-17] MEDS ORDERED: CIPR500T5 PO (15:46)
[2020-05-17 16:21] VITALS: BP 176/88
== END 2020-05-17 16:25 | disposition home or self-care (01) ==
LOC: EDUNIT# 13:44 → ER 13:46
DX: N30.01 Acute cystitis with hematuria (principal); M54.9 Dorsalgia, unspecified; R26.89 Other abnormalities of gait and mobility; R47.81 Slurred speech; F98.5 Adult onset fluency disorder; R63.8 Other symptoms and signs concerning food and fluid intake; M62.81 Muscle weakness (generalized); I10 Essential (primary) hypertension; Z79.891 Long term (current) use of opiate analgesic; W19.XXXA Unspecified fall, initial encounter
CPT/HCPCS: 36415; 70450; 71045; 80053; 81000; 82962; 84484; 85025; 85379; 85610; 85730; 93005; 93041

== ENCOUNTER 2020-09-27 05:41 | Outpatient (CLI) | payer MEDICARE ==
[~2020-09-27] VITALS: Ht 170.2 cm; Wt 62.2 kg
[~2020-09-27 05:41] MED LIST changes: +CIPR500T5 PO
[2020-09-28] MEDS ORDERED: FINA5TAB6 PO (10:21)
[2020-09-28] MEDS ORDERED: MTP25TSR PO (10:21)
[2020-09-28] MEDS ORDERED: DONE5TAB30 PO (10:21)
[2020-09-28] MEDS ORDERED: ACHD5005 PO (10:21)
== END 2020-09-27 12:31 ==
LOC: PREOP 05:41
PROVIDERS: ATTEND Internal Medicine
DX: Z01.812 Encounter for preprocedural laboratory examination (principal); Z20.822 Contact with and (suspected) exposure to COVID-19
CPT/HCPCS: 87635

== ENCOUNTER 2020-09-28 09:54 | Day surgery (SDC) | payer MEDICARE ==
[~2020-09-28] VITALS: Ht 170.2 cm; Wt 62.2 kg
--- NOTE | 2020-09-28 07:40 | HISTORY AND PHYSICAL ---
DATE OF SERVICE: EGD HISTORY AND PHYSICAL HISTORY OF PRESENT ILLNESS: The patient is a 79-year-old white male referred by Dr. Tee for evaluation for need for EGD evaluation due to dysphagia. The patient reports dysphagia predominantly to solids. This has been getting worse over the last 3 months. He has experienced what he believes to be around a 30-pound weight loss over this period of time. Over the past several days, he has only been able to keep liquids down and has been on soft solids. He has been regurgitating predominantly fluid. Denies any associated nausea. He has been experiencing chest pain predominantly a pressure sensation. He points to the lower precordial area, predominantly around meals. It is not associated with activity. He denies melena or bright red blood per rectum, abdominal pain or abdominal distention. PAST MEDICAL HISTORY: He is an extremely poor historian and was able to be a little information, but on review of his electronic medical record, he has a history of reportedly nonischemic cardiomyopathy with moderate coronary artery disease and longstanding hypertension. There were reports by Dr. Li, who he had seen in consultation during an inguinal hernia repair, telling me that he had no previous surgery history in 2018. At that time, his ejection fraction was reported at 30% and he was even wearing a LifeVest for a time. He has had no syncope, presyncope. He denies orthopnea, PND or pedal edema. He had pulmonary consultation in the past for which sleep apnea was suspected, but there is no documentation of sleep study in his electronic medical record. His creatinine several years ago was in the 1.3 range. PAST SURGICAL HISTORY: He has had polycythemia on blood studies several years ago with hematocrit 58 with no other significant CBC abnormalities. FAMILY HISTORY: He is not aware of any family history for GI tract malignancy history suspect. SOCIAL HISTORY: He has a past history of moderate alcohol intake. He denies past smoking history. REVIEW OF SYSTEMS: CONSTITUTIONAL: Pertinent for weight loss. Denies night sweats, chills or fever. PULMONARY: Does report cough. Denies increase in shortness of breath or wheezing. GASTROINTESTINAL: As noted in the HPI. CARDIAC: He does report chest pressure as noted above without orthopnea, PND, pedal edema, syncope or presyncope. PHYSICAL EXAMINATION: GENERAL: Reveals an elderly white male, coughing up nonpurulent phlegm for which I could not rule out the possibility of regurgitation without evidence for blood. VITAL SIGNS: Blood pressure was 122/70, weight 137 pounds. He was on his last belt buckle hole and somewhat disheveled in appearance. CHEST: Clear to auscultation. CARDIOVASCULAR: Revealed a regular rate and rhythm without murmur, S3 or S4. ABDOMEN: Soft, supple without mass, organomegaly or tenderness. No distention noted. EXTREMITIES: Reveal no cyanosis, clubbing or edema. ASSESSMENT AND PLAN: 1. For evaluation with dysphagia, no significant major red flag in regards to significant weight loss, he is being set up for EGD and is to remain on liquid diet. He was seen on Thursday. EGD will be performed on Thursday urgently. Discussed likelihood of need for dilatation. The procedure will be performed on Diprivan based anesthesia. 2. History of nonischemic cardiomyopathy with ejection fraction around 30%. No evidence for heart failure, appears to currently be compensated. We will try to obtain the patient's most recent medications by calling his pharmacy as he could not tell me what medications he was taking, but states that he has been on several. Job ID: [id number] DocumentID: [id number] Dictated Date: 09/26/2020 20:14:43 Wound Care Coordinator Date: 09/26/2020 20:31:19 Dictated By: MORENA SILVA MD
--- NOTE | 2020-09-28 10:02 | Pre-Op Note & Conscious Sedat ---
Pre-Operative Progress Note H&P Reviewed The H&P was reviewed, patient examined and no changes noted. Date H&P Reviewed: Sep 28, 2020 Time H&P Reviewed: 10:02 Conscious Sedation Pre-Proced ASA Score 3 For ASA 3 and 4: Consider anesthesia and medical clearance. Also, for patients with a history of failed moderate sedation consider anesthesia. Airway Lungs Heart ASA score ASA 1: a normal healthy patient ASA 2: a patient with a mild systemic disease (mid diabetes, controlled hypertension, obesity ASA 3: a patient with a severe systemic disease that limits activity (angina, COPD, prior Myocardial infarction) ASA 4: a patient with an incapacitating disease that is a constant threat to life (CHF, renal failure) ASA 5: a moribund patient not expected to survive 24 hrs. (ruptured aneurysm) ASA 6: a declared brain- patient whose organs are being harvested. For emergent operations, add the letter E after the classification Mallampati Classification Grade 2 Sedation Plan Analgesia, Amnesia, Plan communicated to team members, Discussed options with patient/fam, Discussed risks with patient/fam The patient is an appropriate candidate to undergo the planned procedure, sedation, and anesthesia. The patient immediately re-assessed prior to indication. MORENA SILVA MD Sep 28, 2020 10:02
[2020-09-28] MEDS ORDERED: LACTATED RINGERS 1,000 ML IV ONE (10:03)
[2020-09-28] MEDS ORDERED: LACTATED RINGERS 1,000 ML IV STA (10:04)
[2020-09-28] MEDS ORDERED: HURRICAINE EXT TUBE (BENZOCAINE) XX PRN (10:15)
[2020-09-28] MEDS ORDERED: MTP25TSR PO (10:21)
[2020-09-28] MEDS ORDERED: ACHD5005 PO (10:21)
[2020-09-28] MEDS ORDERED: DONE5TAB30 PO (10:21)
[2020-09-28] MEDS ORDERED: FINA5TAB6 PO (10:21)
[2020-09-28 10:24] VITALS: BP 210/96
[2020-09-28] MEDS ORDERED: proPOfol 200 MG/20 ML (DIPRIVAN) VIAL IV ONE (10:49)
[2020-09-28] MEDS ORDERED: LIDOCAINE JELLY 2% 6 ML SYRINGE MM PRN (11:00)
[2020-09-28] MEDS ORDERED: LIDOCAINE JELLY 2% 6 ML SYRINGE ONE (11:06)
[2020-09-28] MEDS ORDERED: hydrALAZINE (APESOLINE) 20 MG/ML VIAL ONE (11:33)
[2020-09-28 11:50] VITALS: BP 182/90
[2020-09-28 11:55] VITALS: BP 182/90
[2020-09-28 12:20] VITALS: BP 184/92
[2020-09-28 12:30] VITALS: BP 184/92
--- NOTE | 2020-09-28 16:57 | OPERATIVE REPORT ---
DATE OF SERVICE: 09/28/2020 EGD SUMMARY INDICATION FOR THE PROCEDURE: Dysphagia with regurgitation and weight loss. DESCRIPTION OF PROCEDURE: The patient was placed in the left lateral decubitus position. The endoscope was inserted in the oral cavity and under direct visualization, esophagus was intubated. The endoscope was passed down the esophagus through the stomach into the second portion of the duodenum. Careful inspection was made as the endoscope was withdrawn. FINDINGS: Posterior pharynx, epiglottis, arytenoid aperture and true and false vocal folds were unremarkable. Proximal and mid esophagus was unremarkable except for some mild dilatation and the presence in the mid and distal esophagus of food, predominantly corn. The distal esophagus tapered down and it required a significant amount of force to intubate the stomach and there was no evidence for mass or extrinsic compression and no evidence to suggest stricture formation or erosive esophagitis, most compatible with achalasia. There was no evidence for hiatal hernia formation. The cardia, fundus and antrum, pylorus, pyloric channel were unremarkable. There is a minimal amount of duodenal erythema noted without ulceration confined to the duodenal bulb with no evidence for abnormality in the second portion of the duodenum. ASSESSMENT: Findings most compatible with achalasia were noted. The patient did undergo balloon dilatation to 20 mm size with significant improvement at least temporarily in resistance to scope passage. Mild duodenitis was noted without evidence for peptic ulcer disease. No other abnormalities were noted. Discussed with the patient and because of his mild dementia with his caregiver the likelihood that benefit would only be temporary and advised that he continue mechanical soft diet. If there is minimal benefit would advise a GI referral at to discuss other potential treatment options such as myomectomy or consideration for Botox injection. If we get more lasting benefit, considering his age, frailty and dementia. Would will be happy to bring him back as needed for esophageal dilatation. Job ID: [id number] DocumentID: [id number] Dictated Date: 09/28/2020 12:02:[address] Date: 09/28/2020 16:56:40 Dictated By: MORENA SILVA MD [facility]
== END 2020-09-28 12:30 | disposition home or self-care (01) ==
LOC: ENDO 09:54
PROVIDERS: ATTEND Internal Medicine
DX: K21.9 Gastro-esophageal reflux disease without esophagitis (principal); F03.90 Unspecified dementia, unspecified severity, without behavioral disturbance, psychotic disturbance, mood disturbance, and anxiety; K29.80 Duodenitis without bleeding; R63.4 Abnormal weight loss; I10 Essential (primary) hypertension; D61.9 Aplastic anemia, unspecified; I42.8 Other cardiomyopathies; I25.10 Atherosclerotic heart disease of native coronary artery without angina pectoris; Z98.890 Other specified postprocedural states; Z79.899 Other long term (current) drug therapy

== ENCOUNTER 2020-09-30 19:56 | Emergency (ER) | payer MEDICARE ==
[~2020-09-30] VITALS: Ht 170 cm; Wt 58.0 kg
[~2020-09-30 19:56] MED LIST changes: +DONE5TAB30 PO; +FINA5TAB6 PO
[2020-09-30] MEDS ORDERED: NITROGLYCERIN 0.4 MG SL TABS BTL 25'S SL PRN (20:15)
[2020-09-30] MEDS ORDERED: LACTATED RINGERS 1,000 ML IV SCH (20:15)
--- NOTE | 2020-09-30 20:18 | ED General ---
General Chief Complaint: Post OP Complications/Pain Stated Complaint: POST ENDO/UNABLE TO EAT OR DRINK Nursing Triage Note: PT HAD ENDO DONE THURSDAY BY DR. SILVA, CC TODAY OF UNABLE TO SWALLOW, DAUGHTER STATES THAT THEY TOLD THEM THAT HE MAY NEED TO BE TRANSFERED TO FOR FOLLOW UP. Source of Information: Patient Exam Limitations: No Limitations History of Present Illness Date Seen by Provider: Sep 30, 2020 Time Seen by Provider: 20:16 Initial Comments ER by private vehicle with reports of inability to swallow. Patient has been dealing with this which has caused some weight loss over the past 3 months. He had an EGD done 2 days ago with findings most consistent with achalasia. Since then has had difficulty swallowing anything even water. Timing/Duration: 1-2 Days Severity: Moderate Associated Systoms: Denies Symptoms Allergies and Home Medications Allergies Coded Allergies: NKANo Known Allergies (Verified Allergy, Unknown, 05/28/06) Home Medications Donepezil HCl 5 Mg Tablet, 5 MG PO HS, (Reported) Finasteride 5 Mg Tablet, 5 MG PO DAILY, (Reported) Hydrocodone/Acetaminophen 1 Each Tablet, 1 TAB PO QID PRN for PAIN-MODERATE (5- 7), (Reported) Metoprolol Succinate 25 Mg Tab.er.24h, 25 MG PO DAILY, (Reported) Patient Home Medication List Home Medication List Reviewed: Yes Review of Systems Review of Systems Constitutional: see HPI EENTM: see HPI Respiratory: no symptoms reported Cardiovascular: no symptoms reported Genitourinary: no symptoms reported Skin: no symptoms reported Psychiatric/Neurological: No Symptoms Reported Hematologic/Lymphatic: No Symptoms Reported Immunological/Allergic: no symptoms reported Past Chhnzlh-Cpckdk-Nbwwwy Hx Patient Social History Tobacco Use?: No Smoking Status: Never a Smoker Substance use?: No Alcohol Use?: Yes Alcohol type: Beer Alcohol Frequency: Rarely Immunizations Up To Date Tetanus Booster (TDap): More than 5yrs Second COVID19 Vaccination [place]: 05/2020 COVID19 Vaccine Mining Consultant: JUAN Seasonal Allergies Seasonal Allergies: No Past Medical History Surgeries: Yes Cardiac Respiratory: No Cardiac: Yes (LIFE VEST) Cardiomyopathy, Hypertension Neurological: No Reproductive Disorders: No Genitourinary: Yes (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 No Pertinent Family Hx, Hypertension Physical Exam Vital Signs Vital Signs - First Documented 09/30/20 20:02 Temp 36.2 Pulse 81 Resp 18 B/P (MAP) 176/103 (127) Pulse Ox 99 O2 Delivery Room Air Capillary Refill : Less Than 3 Seconds Height, Weight, BMI Height: 5'6.00" Weight: 165lbs. 4.0oz. [id number]; 20.00 BMI Method:Stated General Appearance: No Apparent Distress, WD/WN, Other (Watched him drink a bit of water and she chokes on it. He has quite a bit of discomfort in the center of his chest with swallowing. His blood pressure is 170/100, this will allow for trial of a sublingual nitroglycerin and then will try to let him drink shortly after this.) Eyes: Bilateral Eye Normal Inspection, Bilateral Eye PERRL, Bilateral Eye EOMI HEENT: PERRL/EOMI, TMs Normal Neck: Full Range of Motion, Normal Inspection Respiratory: No Accessory Muscle Use, No Respiratory Distress Cardiovascular: Regular Rate, Rhythm, Normal Peripheral Pulses Gastrointestinal: Normal Bowel Sounds, Non Tender, Soft Extremity: Normal Capillary Refill, Normal Inspection Neurologic/Psychiatric: Alert, Oriented x3 Skin: Normal Color, Warm/Dry Progress/Results/Core Measures Suspected Sepsis SIRS Temperature: Pulse: 81 Respiratory Rate: 18 Laboratory Tests 09/30/20 20:05: White Blood Count 15.8H Blood Pressure 176 /103 Mean: 127 Laboratory Tests 09/30/20 20:05: Creatinine 1.18, Platelet Count 227 Results/Orders Lab Results Laboratory Tests Test 09/30/20 20:05 Range/Units White Blood Count 15.8 H 4.3-11.0 10^3/uL Red Blood Count 5.10 4.30-5.52 10^6/uL Hemoglobin 14.9 13.3-17.7 g/dL Hematocrit 46 40-54 % Mean Corpuscular Volume 90 80-99 fL Mean Corpuscular Hemoglobin 29 25-34 pg Mean Corpuscular Hemoglobin Concent 33 32-36 g/dL Red Cell Distribution Width 13.2 10.0-14.5 % Platelet Count 227 130-400 10^3/uL Mean Platelet Volume 9.4 9.0-12.2 fL Immature Granulocyte % (Auto) 0 % Neutrophils (%) (Auto) 81 H 42-75 % Lymphocytes (%) (Auto) 8 L 12-44 % Monocytes (%) (Auto) 10 0-12 % Eosinophils (%) (Auto) 0 0-10 % Basophils (%) (Auto) 0 0-10 % Neutrophils # (Auto) 12.8 H 1.8-7.8 10^3/uL Lymphocytes # (Auto) 1.3 1.0-4.0 10^3/uL Monocytes # (Auto) 1.6 H 0.0-1.0 10^3/uL Eosinophils # (Auto) 0.0 0.0-0.3 10^3/uL Basophils # (Auto) 0.1 0.0-0.1 10^3/uL Immature Granulocyte # (Auto) 0.1 0.0-0.1 10^3/uL Neutrophils % (Manual) 87 % Lymphocytes % (Manual) 5 % Monocytes % (Manual) 8 % Eosinophils % (Manual) 0 % Basophils % (Manual) 0 % Band Neutrophils 0 % Toxic Granulation 1+ Sodium Level 134 L 135-145 MMOL/L Potassium Level 3.8 3.6-5.0 MMOL/L Chloride Level 101 98-107 MMOL/L Carbon Dioxide Level 25 21-32 MMOL/L Anion Gap 8 5-14 MMOL/L Blood Urea Nitrogen 22 H 7-18 MG/DL Creatinine 1.18 0.60-1.30 MG/DL Estimat Glomerular Filtration Rate 60 BUN/Creatinine Ratio 19 Glucose Level 108 H 70-105 MG/DL Calcium Level 8.9 8.5-10.1 MG/DL Troponin I < 0.028 <0.028 NG/ML B-Type Natriuretic Peptide 1191.6 H <100.0 PG/ML Lipase 28 8-78 U/L Procalcitonin 0.03 <0.10 NG/ML My Orders Orders - ARMOND LANCASTER AUDIOLOGIST Nitroglycerin 0.4 Mg Btl 25's (Nitrostat (09/30/20 20:15) Lactated Ringers (Lr 1000 Ml Iv Solution (09/30/20 20:15) Cbc With Automated Diff (09/30/20 20:15) Basic Metabolic Panel (09/30/20 20:15) BNP (09/30/20 20:20) Manual Differential (09/30/20 20:05) Procalcitonin (Pct) (09/30/20 20:23) Lipase (09/30/20 20:26) Fentanyl Inj (Sublimaze Injection) (09/30/20 20:45) Ct Jasmyne Chest/Noang Abd-Pelv W (09/30/20 20:32) Iohexol Injection (Omnipaque 350 Mg/Ml 1 (09/30/20 20:45) Received Contrast (Hold Metformin- Contr (09/30/20 20:45) Ns (Ivpb) (Sodium Chloride 0.9% Ivpb Bag (09/30/20 20:45) Troponin I (09/30/20 20:56) Ekg Tracing (09/30/20 20:56) Antacid Suspension (Mylanta Suspension (09/30/20 21:00) Lidocaine 2% Viscous 15 Ml (Xylocaine Vi (09/30/20 21:00) Medications Given in ED Current Medications Medications Dose Ordered Sig/Anil Route Start Time Stop Time Status Last Admin Dose Admin Al Hydrox/Mg Hydrox/Simethicone 30 ml ONCE ONCE PO 09/30/20 21:00 09/30/20 21:01 DC 09/30/20 21:27 30 ML Fentanyl Citrate 25 mcg ONCE PRN IVP 09/30/20 20:45 09/30/20 20:55 25 MCG Iohexol 100 ml ONCE ONCE IV 09/30/20 20:45 09/30/20 20:46 DC 09/30/20 20:39 100 ML Lidocaine HCl 15 ml ONCE ONCE PO 09/30/20 21:00 09/30/20 21:01 DC 09/30/20 21:27 15 ML Nitroglycerin 1 TAB Q 5 MIN X 3 NEEDED PRN SL 09/30/20 20:15 09/30/20 20:21 0.4 MG Sodium Chloride 100 ml ONCE ONCE IV 09/30/20 20:45 09/30/20 20:46 DC 09/30/20 20:39 80 ML Vital Signs/I&O 09/30/20 20:02 Temp 36.2 Pulse 81 Resp 18 B/P (MAP) 176/103 (127) Pulse Ox 99 O2 Delivery Room Air Capillary Refill : Less Than 3 Seconds Blood Pressure Mean: 127 Departure Communication (Admissions) Family Conversation EKG done at 2122 shows sinus rhythm rate of 50, there is no ST segment elevation or depression that is appreciable. 2041-a sublingual nitroglycerin failed to resolve his dysphagia or chest discomfort and it did drop his systolic pressure to 83. Because of the persistent chest pain and he is moaning I will get an EKG troponin and a CT angio chest to evaluate the aorta. 2117-after fentanyl 25 mcg he is up walking and states that he feels much better. Impression Primary Impression: Dysphagia Disposition: 01 HOME, SELF-CARE Condition: Stable Departure-Patient Inst. Decision time for Depature: 21:33 Referrals: RONAL CAMARGO MD (PCP/Family) Primary Care Physician Patient Instructions: Achalasia Add. Discharge Instructions: 1. Call your primary care provider tomorrow or Dr. Silva for referral to the [facility] to discuss injection of Botox into the lower esophageal sphincter as previously discussed with Dr. Silva. ARMOND LANCASTER APRN Sep 30, 2020 20:17
[2020-09-30 20:21] LABS: BASOPHILS # (AUTO) 0.1 10^3/uL (0.0-0.1); BASOPHILS % (AUTO) 0 % (0-10); EOSINOPHILS % (AUTO) 0 % (0-10); HEMATOCRIT 46 % (40-54); HEMOGLOBIN 14.9 g/dL (13.3-17.7); LYMPHOCYTES # (AUTO) 1.3 10^3/uL (1.0-4.0); LYMPHOCYTES % (AUTO) 8 % (12-44); MEAN CORPUSCULAR HEMOGLOBIN 29 pg (25-34); MEAN CORPUSCULAR HGB CONC 33 g/dL (32-36); MEAN CORPUSCULAR VOLUME 90 fL (80-99); MEAN PLATELET VOLUME 9.4 fL (9.0-12.2); MONOCYTES # (AUTO) 1.6 10^3/uL (0.0-1.0); MONOCYTES % (AUTO) 10 % (0-12); NEUTROPHILS # (AUTO) 12.8 10^3/uL (1.8-7.8); NEUTROPHILS % (AUTO) 81 % (42-75); PLATELET COUNT 227 10^3/uL (130-400); WHITE BLOOD COUNT 15.8 10^3/uL (4.3-11.0)
[2020-09-30 20:29] LABS: CALCIUM 8.9 MG/DL (8.5-10.1); CREATININE SERUM 1.18 MG/DL (0.60-1.30); POTASSIUM 3.8 MMOL/L (3.6-5.0)
[2020-09-30 20:43] LABS: LYMPHOCYTES % (MANUAL) 5 %; NEUTROPHILS % (MANUAL) 87 %
[2020-09-30 20:44] LABS: BAND NEUTROPHILS 0 %; BASOPHILS % (MANUAL) 0 %; EOSINOPHILS % (MANUAL) 0 %; MONOCYTES % (MANUAL) 8 %; TOXIC GRANULATION/VACUOLAZATIO 1+
[2020-09-30] MEDS ORDERED: fentaNYL INJ 100 MCG/2 ML AMP IVP PRN (20:45)
[2020-09-30] MEDS ORDERED: HOLD METFORMIN - RECEIVED CONTRAST 20 ML VIAL IV SCH (20:45)
[2020-09-30] MEDS ORDERED: NS 100 ML (IVPB) BAG IV ONE (20:45)
[2020-09-30] MEDS ORDERED: IOHEXOL 350 MG/ML 100 ML (OMNIPAQUE 350) VIAL IV ONE (20:45)
[2020-09-30] MEDS ORDERED: LIDOCAINE 2% VISCOUS 15 ML UDC PO ONE (21:00)
[2020-09-30] MEDS ORDERED: ANTACID SUSP 30 ML UDC (MYLANTA) PO ONE (21:00)
--- NOTE | 2020-09-30 21:55 | Diagnostic Imaging Report ---
CLINICAL INDICATION: Patient with recent endoscopy on esophagram. Patient with chest pain and leukocytosis. EXAM: CT angiogram of the chest, abdomen and pelvis performed with 100 cc Omnipaque 350 IV contrast. Coronal and oblique MIP images of the vasculature were created to better evaluate anatomy. Auto Exposure Controls were utilized during the CT exam to meet ALARA standards for radiation dose reduction. COMPARISON: CT scan of the abdomen and pelvis without contrast dated 01/29/2018. FINDINGS: CT chest: There is atelectasis and parenchymal bands involving both lung bases. There is a small left pleural effusion. Visualized portion of the thyroid gland is unremarkable. There is no pneumomediastinum seen. There is no mediastinal or significant hilar lymphadenopathy. There is no axillary lymphadenopathy. There is no evidence of pulmonary embolism. There is no thoracic aortic aneurysm or dissection. There is diffuse wall thickening involving the mid and distal esophagus and gastroesophageal junction region. This may be related to esophagitis. Correlation with recent endoscopy is suggested. There is air and fluid within the esophagus which may related to dysmotility. There are hypertrophic spurs involving the thoracic spine. CT abdomen and pelvis: There is diffuse low-density seen throughout the liver which may related to diffuse fatty infiltration. The liver, spleen, pancreas, gallbladder and adrenal glands are unremarkable. There are multiple areas of irregularity and scarring involving both kidneys with atrophy of both kidneys. There is no definite enhancing mass seen. There is no hydronephrosis. Bladder has small amount of fluid within it and grossly unremarkable as visualized. Dystrophic calcifications within the small prostate gland is noted. There is no intra-abdominal free air or free fluid. There is no lymphadenopathy. There is no abdominal aortic aneurysm or dissection. The celiac artery and SMA are patent. There is mild narrowing of the origin of the left renal artery. Right renal artery is patent. There is at least mild to moderate narrowing of the IMV. There is no significant stenosis of the bilateral common iliac arteries. Appendix unremarkable. There is no intestinal obstruction. There is sigmoid colon diverticulosis with no CT evidence of diverticulitis. There is wall thickening involving the gastric antrum which may be related to contraction or antritis. Extra-abdominal and extra-pelvis soft tissue structures are unremarkable. IMPRESSION: 1: There is no evidence of pulmonary embolism. There is no thoracic or abdominal aortic aneurysm or dissection. 2: There is atelectasis involving both lung bases. There is a small left pleural effusion. 3: There is no pneumomediastinum. There is diffuse wall thickening of the mid and distal esophagus which may be related to esophagitis. Correlation with recent endoscopy is suggested. There is no mediastinal fluid collection. 4: There is nonspecific wall thickening of the gastric antrum which may be related to contraction or antritis. 5: There is no CT evidence of acute abdominal or pelvic process. 6: Suspected diffuse fatty infiltration of the liver. Dictated by: Dictated on workstation # [id number]
[2020-09-30 22:11] VITALS: BP 171/94
== END 2020-09-30 22:10 | disposition home or self-care (01) ==
LOC: EDUNIT# 19:56 → ER 19:57
DX: R13.10 Dysphagia, unspecified (principal); I10 Essential (primary) hypertension; G89.29 Other chronic pain; M54.9 Dorsalgia, unspecified; Z79.891 Long term (current) use of opiate analgesic; Z79.899 Other long term (current) drug therapy
CPT/HCPCS: 36415; 71275; 74177; 80048; 83690; 83880; 84145; 84484; 85007; 85027; 93005

== ENCOUNTER 2020-10-03 09:45 | Observation (INO) | payer MEDICARE ==
[~2020-10-03] VITALS: Ht 167 cm; Wt 60.8 kg
[2020-10-03] MEDS ORDERED: morphine INJ 10 MG/ML 1ML (SYR OR VIAL) ONE ×2 (10:01→13:28)
[2020-10-03] MEDS ORDERED: morphine INJ 10 MG/ML 1ML (SYR OR VIAL) IVP STA ×2 (10:06→10:23)
--- NOTE | 2020-10-03 10:11 | ED Abdominal Pain ---
General Chief Complaint: Abdominal/GI Problems Stated Complaint: ABD PAIN Source of Information: Patient Exam Limitations: No Limitations History of Present Illness Date Seen by Provider: Oct 03, 2020 Time Seen by Provider: 09:48 Initial Comments Patient presents ER by EMS from home with chief complaint of abdominal pain starting about an hour prior to arrival. An hour or 2 before that he ate at [employer] a couple bites. He vomited it up. Is been having problems with esophageal strictures and has an appointment tomorrow at to have this addressed. He had an EGD. He does not know if he is ever had a colonoscopy. No history of diverticulitis. He has not had a bowel movement in 8 days. Is not take anything for it. He has not had any fevers chills cough shortness of breath chest pain. He is followed by Dr. Camargo at [facility]. Rates his pain as a 10 out of 10. His pain is sharp, unrelenting and he has no history of abdominal surgeries. Patient had a EGD by Dr. Deshpande 5 days ago and a balloon dilatation. His concern was for achalasia. Mild duodenitis was seen. He was advised to continue on mechanical soft diet and if there is no benefit then go to to discuss further treatment such as myomectomy or Botox injections. He has an appointment tomorrow, 10/04/2020 with a doctor at [facility] for consultation for this reason. Allergies and Home Medications Allergies Coded Allergies: NKANo Known Allergies (Verified Allergy, Unknown, 05/28/06) Home Medications Donepezil HCl 5 Mg Tablet, 5 MG PO HS, (Reported) Finasteride 5 Mg Tablet, 5 MG PO DAILY, (Reported) Hydrocodone/Acetaminophen 1 Each Tablet, 1 TAB PO QID PRN for PAIN-MODERATE (5- 7), (Reported) Metoprolol Succinate 25 Mg Tab.er.24h, 25 MG PO DAILY, (Reported) Patient Home Medication List Home Medication List Reviewed: Yes Review of Systems Review of Systems Constitutional: No chills, No fever EENTM: No Blurred Vision, No Double Vision Respiratory: Denies Cough, Denies Shortness of Air Cardiovascular: Denies Chest Pain, Denies Lightheadedness Gastrointestinal: See HPI, Abdominal Pain, Constipated; Denies Diarrhea; Nausea, Poor Appetite, Poor Fluid Intake, Vomiting Genitourinary: Denies Burning, Denies Discharge Musculoskeletal: No back pain, No gout, No joint pain All Other Systems Reviewed Negative Unless Noted: Yes Past Ucsamfz-Bxfava-Vnxmmn Hx Patient Social History Tobacco Use?: No Use of E-Cig and/or Vaping dev: No Substance use?: No Alcohol Use?: No Immunizations Up To Date Tetanus Booster (TDap): More than 5yrs Seasonal Allergies Seasonal Allergies: No Past Medical History Surgeries: Yes Cardiac Respiratory: No Cardiac: Yes (LIFE VEST) Cardiomyopathy, Hypertension Neurological: No Reproductive Disorders: No Genitourinary: Yes (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 No Pertinent Family Hx, Hypertension Physical Exam Vital Signs Capillary Refill : Height/Weight/BMI Height: 5'6.00" Weight: 165lbs. 4.0oz. [id number]; 20.00 BMI Method:Stated General Appearance: severe distress, thin Focused Exam Lactate Level 10/03/20 10:19: Lactic Acid Level 2.69*H 10/03/20 12:15: Lactic Acid Level 2.43*H Lactic Acid Level Laboratory Tests Test 10/03/20 10:19 10/03/20 12:15 Lactic Acid Level 2.69 MMOL/L (0.50-2.00) *H 2.43 MMOL/L (0.50-2.00) *H Progress/Results/Core Measures Results/Orders Lab Results Laboratory Tests Test 10/03/20 09:43 10/03/20 10:19 10/03/20 12:15 Range/Units White Blood Count 9.5 4.3-11.0 10^3/uL Red Blood Count 5.24 4.30-5.52 10^6/uL Hemoglobin 15.3 13.3-17.7 g/dL Hematocrit 47 40-54 % Mean Corpuscular Volume 89 80-99 fL Mean Corpuscular Hemoglobin 29 25-34 pg Mean Corpuscular Hemoglobin Concent 33 32-36 g/dL Red Cell Distribution Width 13.4 10.0-14.5 % Platelet Count 275 130-400 10^3/uL Mean Platelet Volume 9.0 9.0-12.2 fL Immature Granulocyte % (Auto) 0 % Neutrophils (%) (Auto) 68 42-75 % Lymphocytes (%) (Auto) 19 12-44 % Monocytes (%) (Auto) 11 0-12 % Eosinophils (%) (Auto) 1 0-10 % Basophils (%) (Auto) 0 0-10 % Neutrophils # (Auto) 6.5 1.8-7.8 X 10^3 Lymphocytes # (Auto) 1.8 1.0-4.0 X 10^3 Monocytes # (Auto) 1.0 0.0-1.0 X 10^3 Eosinophils # (Auto) 0.1 0.0-0.3 10^3/uL Basophils # (Auto) 0.0 0.0-0.1 10^3/uL Immature Granulocyte # (Auto) 0.0 0.0-0.1 10^3/uL Urine Color ORANGE Urine Clarity CLEAR Urine pH 5.5 5-9 Urine Specific [place] >=1.030 1.016-1.022 Urine Protein 2+ H NEGATIVE Urine Glucose (UA) TRACE H NEGATIVE Urine Ketones NEGATIVE NEGATIVE Urine Nitrite NEGATIVE NEGATIVE Urine Bilirubin NEGATIVE NEGATIVE Urine Urobilinogen 1.0 < = 1.0 MG/DL Urine Leukocyte Esterase NEGATIVE NEGATIVE Urine RBC (Auto) NEGATIVE NEGATIVE Urine RBC NONE /HPF Urine WBC 2-5 /HPF Urine Crystals PRESENT H /LPF Urine Amorphous Sediment FEW KELLY URATES H /LPF Urine Bacteria TRACE /HPF Urine Casts NONE /LPF Urine Mucus NEGATIVE /LPF Urine Culture Indicated NO Sodium Level 136 135-145 MMOL/L Potassium Level 3.3 L 3.6-5.0 MMOL/L Chloride Level 96 L 98-107 MMOL/L Carbon Dioxide Level 25 21-32 MMOL/L Anion Gap 15 H 5-14 MMOL/L Blood Urea Nitrogen 23 H 7-18 MG/DL Creatinine 1.51 H 0.60-1.30 MG/DL Estimat Glomerular Filtration Rate 45 BUN/Creatinine Ratio 15 Glucose Level 141 H 70-105 MG/DL Calcium Level 9.1 8.5-10.1 MG/DL Corrected Calcium 9.2 8.5-10.1 MG/DL Total Bilirubin 1.0 0.1-1.0 MG/DL Aspartate Amino Transf (AST/SGOT) 13 5-34 U/L Alanine Aminotransferase (ALT/SGPT) 7 0-55 U/L Alkaline Phosphatase 81 40-136 U/L C-Reactive Protein High Sensitivity 3.22 H 0.00-0.50 MG/DL Total Protein 6.7 6.4-8.2 GM/DL Albumin 3.9 3.2-4.5 GM/DL Lipase 26 8-78 U/L Lactic Acid Level 2.69 *H 2.43 *H 0.50-2.00 MMOL/L My Orders Orders - DICK CRISTINA Morphine Injection (Morphine Injection (10/03/20 10:01) Morphine Injection (Morphine Injection (10/03/20 10:06) Ondansetron Injection (Zofran Injectio (10/03/20 10:15) Pantoprazole Injection (Protonix Injecti (10/03/20 10:15) Lactic Acid Analyzer (10/03/20 10:06) Cbc With Automated Diff (10/03/20 10:06) Comprehensive Metabolic Panel (10/03/20 10:06) Hs C Reactive Protein (10/03/20 10:06) Ua Culture If Indicated (10/03/20 10:06) Lipase (10/03/20 10:06) Ct Abdomen/Pelvis W (10/03/20 10:06) Ed Iv/Invasive Line Start (10/03/20 10:06) Ns Iv 1000 Ml (Sodium Chloride 0.9%) (10/03/20 10:15) Morphine Injection (Morphine Injection (10/03/20 10:23) Iohexol Injection (Omnipaque 350 Mg/Ml 1 (10/03/20 11:00) Received Contrast (Hold Metformin- Contr (10/03/20 11:00) Ns (Ivpb) (Sodium Chloride 0.9% Ivpb Bag (10/03/20 11:00) Medications Given in ED Current Medications Medications Dose Ordered Sig/Anil Route Start Time Stop Time Status Last Admin Dose Admin Iohexol 75 ml ONCE ONCE IV 10/03/20 11:00 10/03/20 11:01 DC 10/03/20 11:53 75 ML Ondansetron HCl 8 mg ONCE ONCE IVP 10/03/20 10:15 10/03/20 10:16 DC 7/14/21 10:23 8 MG Pantoprazole 40 mg ONCE ONCE IV 10/03/20 10:15 10/03/20 10:16 DC 10/03/20 10:23 40 MG Sodium Chloride 100 ml ONCE ONCE IV 10/03/20 11:00 10/03/20 11:01 DC 10/03/20 11:53 80 ML Progress Progress Note : Time: 10:11 Progress Note Liter of fluids, CT of the abdomen pelvis concern for bowel obstruction, ischemic mesentery, etc. We will get some labs given for morphine and 8 of Zofran and reassess. Aseptic vital signs Diagnostic Imaging Diagonstic Imaging: CT Plain Films/CT/US/NM/MRI: abdomen, pelvis Reviewed: Reviewed by Me Departure Communication (Admissions) Time/Spoke to Admitting Phy: 13:00 Discussed the case with Dr. Dyson and he agrees to observe the patient for intractable pain nausea and vomiting with consultation to general surgery. Time/Spoke to Consulting Phy: 12:55 Discussed the case with Dr. Vega, general surgery. He agrees to consult on the case if [facility] will admit. Fluids and pain medicines. Impression Primary Impression: Abdominal pain Qualified Codes: R10.84 - Generalized abdominal pain Additional Impression: Nausea alone Disposition: ADMITTED INPATIENT Condition: Stable Admissions Decision to Admit Reason: Admit from ER (General) Decision to Admit/Date: Oct 03, 2020 Time/Decision to Admit Time: 12:55 Departure-Patient Inst. Referrals: RONAL CAMARGO MD (PCP/Family) Primary Care Physician DICK CRISTINA Oct 03, 2020 10:11
[2020-10-03 10:14] LABS: BASOPHILS % (AUTO) 0 % (0-10); EOSINOPHILS # (AUTO) 0.1 10^3/uL (0.0-0.3); EOSINOPHILS % (AUTO) 1 % (0-10); HEMATOCRIT 47 % (40-54); HEMOGLOBIN 15.3 g/dL (13.3-17.7); LYMPHOCYTES # (AUTO) 1.8 X 10^3 (1.0-4.0); LYMPHOCYTES % (AUTO) 19 % (12-44); MEAN CORPUSCULAR HEMOGLOBIN 29 pg (25-34); MEAN CORPUSCULAR HGB CONC 33 g/dL (32-36); MEAN CORPUSCULAR VOLUME 89 fL (80-99); MONOCYTES % (AUTO) 11 % (0-12); NEUTROPHILS # (AUTO) 6.5 X 10^3 (1.8-7.8); NEUTROPHILS % (AUTO) 68 % (42-75); PLATELET COUNT 275 10^3/uL (130-400); WHITE BLOOD COUNT 9.5 10^3/uL (4.3-11.0)
[2020-10-03] MEDS ORDERED: PANTOPRAZOLE 40 MG (PROTONIX) VIAL IV ONE (10:15)
[2020-10-03] MEDS ORDERED: ONDANSETRON 4 MG/2 ML (SDV) Z0FRAN IVP ONE (10:15)
[2020-10-03 10:18] LABS: ALBUMIN 3.9 GM/DL (3.2-4.5); BILIRUBIN,URINE NEGATIVE (NEGATIVE); CLARITY,URINE CLEAR; COLOR,URINE ORANGE; GLUCOSE, URINE (UA) TRACE (NEGATIVE); KETONES,URINE NEGATIVE (NEGATIVE); LEUKOCYTE ESTERASE ,URINE NEGATIVE (NEGATIVE); NITRITE,URINE NEGATIVE (NEGATIVE); PH,URINE 5.5 (5-9); PROTEIN,URINE 2+ (NEGATIVE)
[2020-10-03 10:19] LABS: POTASSIUM 3.3 MMOL/L (3.6-5.0)
[2020-10-03 10:20] LABS: CALCIUM 9.1 MG/DL (8.5-10.1)
[2020-10-03 10:21] LABS: TOTAL PROTEIN 6.7 GM/DL (6.4-8.2)
[2020-10-03] MEDS: NS IV 1000 ML 1,000 ML IV SCH ×2 (10:23→10:24)
[2020-10-03 10:25] LABS: CREATININE SERUM 1.51 MG/DL (0.60-1.30)
[2020-10-03 10:26] LABS: AMORPHOUS SEDIMENT,UR FEW AMOR URATES /LPF; BACTERIA,URINE TRACE /HPF
[2020-10-03] MEDS ORDERED: HOLD METFORMIN - RECEIVED CONTRAST 20 ML VIAL IV SCH (11:00)
[2020-10-03] MEDS ORDERED: IOHEXOL 350 MG/ML 100 ML (OMNIPAQUE 350) VIAL IV ONE (11:00)
[2020-10-03] MEDS ORDERED: NS 100 ML (IVPB) BAG IV ONE (11:00)
--- NOTE | 2020-10-03 12:15 | Diagnostic Imaging Report ---
EXAMINATION: CT abdomen and pelvis with intravenous contrast. TECHNIQUE: Multiple contiguous axial images were obtained through the abdomen and pelvis after the uneventful administration of intravenous contrast. All CT scans use one or more of the following dose optimizing techniques: automated exposure control, MA and/or KvP adjustment based on patient size and exam type or iterative reconstruction. HISTORY: Abdominal pain. Evaluate for bowel obstruction. COMPARISON: 01/29/2018. FINDINGS: The heart is unremarkable. Bilateral small pleural effusions are seen with bibasilar opacities. A moderate hiatal hernia is present. The liver, spleen, pancreas, adrenal glands, and kidneys demonstrate no acute abnormalities. There is no pathologically enlarged mesenteric or retroperitoneal adenopathy. The bowel loops are nondilated. The appendix is visualized in the right lower quadrant and has a normal appearance. Scattered diverticuli are seen in the descending and sigmoid colon without evidence of acute diverticulitis. There is no free fluid or free air. No acute osseous abnormalities. There is calcified aortic and iliac atherosclerotic plaque without aneurysm. Ureters and bladder are grossly normal. There is no free air, loculated collection, or adenopathy in the pelvis. IMPRESSION: 1. No evidence of bowel obstruction. No free fluid or free air. 2. Bilateral small pleural effusions and bibasilar opacities. 3. Moderate hiatal hernia. 4. Scattered diverticuli without evidence of acute diverticulitis. Dictated by: Dictated on workstation # [id number]
[2020-10-03 18:08] VITALS: BP 158/90
[2020-10-03] MEDS: LACTATED RINGERS 1,000 ML IV SCH (18:12)
[2020-10-03] MEDS: morphine INJ 4 MG/ML 1 ML (VIAL/SYRINGE) IV PRN (18:13)
[2020-10-03] MEDS ORDERED: CATHETER FLUSH 10 ML SYR IV PRN (18:15)
[2020-10-03] MEDS ORDERED: ONDANSETRON 4 MG/2 ML (SDV) Z0FRAN IV PRN (18:15)
[2020-10-03] MEDS ORDERED: ENOXAPARIN 40 MG/0.4 ML (LOVENOX) SYR SC SCH (18:30)
[2020-10-03] MEDS ORDERED: ENOXAPARIN 30 MG/0.3 ML (LOVENOX) SYR SC SCH (18:30)
--- NOTE | 2020-10-03 18:59 | CONSULTATION REPORT ---
DATE OF SERVICE: 10/03/2020 ATTENDING PRIMARY CARE PHYSICIAN: Dr. Drake Tee. ADMITTING PHYSICIAN: Dr. Naheed Dyson. HISTORY OF PRESENT ILLNESS: The patient is a 79-year-old male, who presented to the Emergency Department with acute onset of diffuse abdominal pain. He states two hours before presentation to the Emergency Department, he was at a restaurant with a hamburger and he took few bites, developed the abdominal pain and then had an episode of nausea and vomiting. He has a known history of gastroesophageal reflux disease and esophageal stricture and underwent an EGD as well as a balloon dilatation five days ago. A CT scan was performed, which did not show any abnormalities; however, there did appear to be diffuse calcifications of the abdominal aorta as well as bilateral iliac arteries. He also does have a history of cardiomyopathy. Due to likely low flow states and possible dehydration, cardiomyopathy as well as his peripheral vascular disease, the likely cause of his abdominal pain is due to ischemic colitis. PAST MEDICAL HISTORY: Hypertension, cardiomyopathy, benign prostatic hypertrophy, degenerative joint disease, hearing impairment, aplastic anemia, and chronic renal insufficiency. PAST SURGICAL HISTORY: Cardiac catheterization. ALLERGIES: No known drug allergies. MEDICATIONS: Donepezil 5 mg daily, finasteride 5 mg daily, hydrocodone p.r.n., and metoprolol 25 mg daily. SOCIAL HISTORY: Negative smoke and negative alcohol. FAMILY HISTORY: Noncontributory. REVIEW OF SYSTEMS: A well-nourished male, currently slightly guarded secondary to the abdominal pain. He is not experiencing any shortness of breath or difficulty breathing. No chest pain, diaphoresis or palpitations. Diffuse abdominal pain of sudden onset starting earlier today with one episode of nausea and vomiting of undigested food and bilious material. No hematemesis and no coffee ground emesis. He has not had a bowel movement for the past several days. He does not report any red blood per rectum nor any dark tarry stools. No fever, chills, and no recent inadvertent weight loss. All other review of systems negative. PHYSICAL EXAMINATION: VITAL SIGNS: Temperature 36.7, blood pressure 158/90, pulse 86, respirations 20, and pulse ox 93% on room air. CHEST: A few scattered rales bilaterally. HEART: Regular and no murmurs. EXTREMITIES: No lower extremity edema and negative Homans sign. HEENT: No scleral icterus. NECK: No cervical lymphadenopathy. ABDOMEN: Soft and nondistended. There is diffuse mild to moderate pain throughout the abdomen. There are no peritoneal signs. No hernias. SKIN: Warm and dry. LABORATORY DATA: WBC 9.5, hemoglobin 5.3, hematocrit 47, and platelets 275. BUN 23, creatinine 1.51. Lactic acid 2.43. Liver function enzymes are normal. ASSESSMENT AND PLAN: A 79-year-old male with likely ischemic colitis from cardiomyopathy, dehydration and associated low flow states. Our recommendation is to proceed with conservative medical management with IV hydration, bowel rest and adequate pain control. Hopefully, once this abdominal pain resolves and he does have some bowel function, we will start a clear liquid diet and slowly advance as tolerated. We will also proceed with Cipro and Flagyl to prevent any bacterial overgrowth and worsening colitis. We will also proceed with therapeutic dose of Lovenox. Job ID: [id number] DocumentID: [id number] Dictated Date: 10/03/2020 18:25:01 Processing Lead Date: 10/03/2020 18:58:23 Dictated By: JOYE REGAN MD
[2020-10-03 20:00] VITALS: BP 149/81
[2020-10-03] MEDS: CIPROFLOXACIN IV 400MG/200ML 200 ML IV SCH (20:27)
[2020-10-03] MEDS: fentaNYL INJ 100 MCG/2 ML AMP IV PRN (20:27)
[2020-10-03] MEDS: metroNIDAZOLE 500MG/100ML IVPB 100 ML IV SCH (21:33)
[2020-10-03 23:51] VITALS: BP 151/78
[2020-10-04] MEDS: fentaNYL INJ 100 MCG/2 ML AMP IV PRN ×4 (00:52→13:21)
[2020-10-04] MEDS: HYDROcodone/APAP 5 MG/325 MG (LORTAB) TAB PO PRN ×3 (03:53→13:45)
[2020-10-04 03:59] VITALS: BP 159/77
[2020-10-04] MEDS ORDERED: ENOXAPARIN 30 MG/0.3 ML (LOVENOX) SYR SC SCH (06:30)
[2020-10-04 06:31] LABS: BASOPHILS % (AUTO) 0 % (0-10); EOSINOPHILS % (AUTO) 0 % (0-10); HEMATOCRIT 42 % (40-54); HEMOGLOBIN 13.6 g/dL (13.3-17.7); LYMPHOCYTES # (AUTO) 0.6 10^3/uL (1.0-4.0); LYMPHOCYTES % (AUTO) 4 % (12-44); MEAN CORPUSCULAR HEMOGLOBIN 29 pg (25-34); MEAN CORPUSCULAR HGB CONC 33 g/dL (32-36); MEAN CORPUSCULAR VOLUME 90 fL (80-99); MEAN PLATELET VOLUME 9.6 fL (9.0-12.2); MONOCYTES # (AUTO) 1.2 10^3/uL (0.0-1.0); MONOCYTES % (AUTO) 8 % (0-12); NEUTROPHILS # (AUTO) 13.9 10^3/uL (1.8-7.8); NEUTROPHILS % (AUTO) 88 % (42-75); PLATELET COUNT 211 10^3/uL (130-400); WHITE BLOOD COUNT 15.9 10^3/uL (4.3-11.0)
[2020-10-04 06:45] LABS: POTASSIUM 4.4 MMOL/L (3.6-5.0)
[2020-10-04 06:46] LABS: CALCIUM 8.7 MG/DL (8.5-10.1)
[2020-10-04 06:51] LABS: CREATININE SERUM 1.28 MG/DL (0.60-1.30)
[2020-10-04 08:00] VITALS: BP 192/84
[2020-10-04] MEDS: morphine INJ 4 MG/ML 1 ML (VIAL/SYRINGE) IV PRN ×2 (08:26→11:40)
[2020-10-04] MEDS: CIPROFLOXACIN IV 400MG/200ML 200 ML IV SCH (08:27)
[2020-10-04] MEDS: metroNIDAZOLE 500MG/100ML IVPB 100 ML IV SCH (08:27)
[2020-10-04] MEDS ORDERED: hydrALAZINE (APESOLINE) 20 MG/ML VIAL IV PRN (08:45)
[2020-10-04] MEDS ORDERED: ONDA4TAB11 PO (08:50)
[2020-10-04] MEDS ORDERED: PANTOPRAZOLE 40 MG (PROTONIX) VIAL IV SCH (09:00)
[2020-10-04 09:09] VITALS: BP 165/80
[2020-10-04] MEDS: LACTATED RINGERS 1,000 ML IV SCH ×2 (09:36→12:36)
[2020-10-04] MEDS ORDERED: HOLD METFORMIN - RECEIVED CONTRAST 20 ML VIAL IV SCH (09:45)
[2020-10-04] MEDS ORDERED: IOHEXOL 350 MG/ML 100 ML (OMNIPAQUE 350) VIAL IV ONE (09:45)
[2020-10-04] MEDS ORDERED: NS 100 ML (IVPB) BAG IV ONE (09:45)
[2020-10-04] MEDS ORDERED: DIATRIZOATE MEGLUM/SODIUM 37% 120 ML (GASTROGRAFIN) PO ONE (11:15)
--- NOTE | 2020-10-04 11:30 | Diagnostic Imaging Report ---
PROCEDURE: CT angiography of the abdomen with and without contrast. TECHNIQUE: Multiple contiguous axial images were obtained through the abdomen and pelvis after administration of intravenous contrast. 3D MIP reconstructions were made. Auto Exposure Controls were utilized during the CT exam to meet ALARA standards for radiation dose reduction. INDICATION: Mediastinal chest and upper abdominal pain. Bolus IV contrast is given. There is good opacification aorta and abdominal vessels. There is some scattered atherosclerotic disease with calcification at the takeoff left renal artery as well as the SMA. There does not appear to be hemodynamically significant disease. The SMA is widely patent to its peripheral branches. The left renal artery lumen is obscured due to very dense calcification and cannot completely be cleared as being nonhemodynamic. There is dense calcification in the distal abdominal aorta and iliac arteries. There is noted Gastrografin and air within the mediastinum extending inferiorly about the aorta. See CT chest report for discussion of esophageal perforation. Fatty changes of the liver. Gallbladder and bile duct are normal. Pancreas and spleen appear normal. The adrenal glands are normal. Kidneys show cortical atrophy with symmetrical enhancement. No masses or obstruction. Bowel gas pattern appears normal visualized. IMPRESSION: 1. No evidence of mesenteric ischemia. 2. Very dense calcification origin of left renal artery obscures detail for a possible lumen diameter evaluation of the left kidney. Would consider Doppler ultrasound left kidney of renal artery stenosis is of clinical concern. 3. There is a distal esophageal perforation. See CT chest report for detail. Dictated by: Dictated on workstation # [id number]
--- NOTE | 2020-10-04 11:31 | Diagnostic Imaging Report ---
PROCEDURE: CT chest without contrast. TECHNIQUE: Multiple contiguous axial images were obtained through the chest without the use of intravenous contrast. Auto Exposure Controls were utilized during the CT exam to meet ALARA standards for radiation dose reduction. INDICATION: Unable to swallow. Recent endoscopy. CORRELATION STUDY: CTA chest 09/30/2020 FINDINGS: The esophagus is distended with contrast, administered right before imaging. Just below the mehdi and posterior to the lower left main bronchus, there is abnormal contrast extravasation to the left of midline with spillage of contrast into the mediastinum. There is some complex gas collection in the posterior mediastinum nearly surrounding the descending thoracic aorta. Moderate amount of complex contents within the esophagus present as well. Some additional contrast does pass through this area into the stomach. There is presence of small to moderate bilateral pleural effusions dependently. Slight increased density, consistent with complex appearance. Moderate compressive consolidation with atelectasis or infiltrate at the bilateral lower lobes. Heart size is borderline enlarged. Prominent coronary artery calcification. Thoracic aorta with mild wall calcification, otherwise normal in contour. 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 IMPRESSION: 1. Findings consistent with esophageal perforation, junction of the mid to distal 3rd with significant extravasation into the posterior mediastinum. Complex gas and fluid in the posterior mediastinum including surrounding the descending thoracic aorta, consistent with mediastinitis. 2. Moderate bilateral pleural effusions adversely increase in size. 3. Significant consolidation bilateral lower lobes may reflective of some compressive atelectasis versus pneumonia. Critical findings Telephone call has been made to Dr. Dyson, 11:25 AM. Dictated by: Dictated on workstation # [id number]
--- NOTE | 2020-10-04 11:49 | History & Physical-Hospitalist ---
History of Present Illness HPI/Chief Complaint This is a 79 YO male with history of HTN, chronic renal insufficiency, and esophageal strictures who came to the ER for nausea, vomiting, and abdominal pain after eating at a restaurant. Pt had an EGD with dilatation [address] Deshpande and was to follow up with [facility]. In the ER, lactate was elevated at 2.69, UA was negative. CT abdomen/pelvis showed scattered diverticuli, hiatal hernia, and small bilateral pleural effusions. No obstruction. Today, pt is complaining of diffuse abdominal pain and pain in his esophagus when he drinks liquid. Pain is also worsened by breathing and moving. Source: patient Exam Limitations: other (poor historian) Date Seen 10/04/20 Time Seen by a Provider: 09:00 Attending Physician Naheed Dyson MD PCP Drake Tee MD Referring Physician Date of Admission Oct 03, 2020 at 13:15 Home Medications & Allergies Home Medications Reviewed patient Home Medication Reconciliation performed by pharmacy medication reconciliations heat treatment technician and/or nursing. Patients Allergies have been reviewed. Allergies Allergies Coded Allergies NKANo Known Allergies (Verified Allergy, Unknown, 05/28/06) Past Rmtnkhh-[id number]-Ngtrnv Hx Patient Social History Tobacco Use?: No Use of E-Cig and/or Vaping dev: No Substance use?: No Alcohol Use?: No Pt feels they are or have been: No Immunizations Up To Date Date of Influenza Vaccine: Dec 30, 2017 First/Initial COVID19 Vaccinat: 5 NONTHS AGO Second COVID19 Vaccination Corby: 5 MONTHS AGO, UNSURE DATE Tetanus Booster (TDap): More Than 5 Years Hepatitis A: No Hepatitis B: No Seasonal Allergies Seasonal Allergies: No Current Status Advance Directives: No Communicates: Verbally Primary Language: Palauan Preferred Spoken Language: Palauan Is interpretation needed?: No Sensory deficits: Vision impairment, Hearing impairment Implanted or Applied Medical D: None Past Medical History Surgeries: Cardiac Cardiomyopathy, Hypertension Prostate Problems Chronic Back Pain Hearing Impairment: Hard of Hearing Blood Disorders: Yes (APLASTIC ANEMIA) Family Medical History Patient reports no known family medical history. No Pertinent Family Hx, Hypertension Physical Exam Physical Exam Vital Signs Vital Signs - First Documented 10/03/20 09:45 Temp 36.0 Pulse 83 Resp 18 B/P (MAP) 190/118 (142) Pulse Ox 95 O2 Delivery Room Air Capillary Refill : Less Than 3 Seconds Height, Weight, BMI Height: 5'6.00" Weight: 165lbs. 4.0oz. [id number]; 135.44 BMI Method:Stated General Appearance: WD/WN, Moderate Distress Respiratory: Chest Non Tender, No Accessory Muscle Use, No Respiratory Distress Cardiovascular: Regular Rate, Rhythm, No Edema Gastrointestinal: Soft, Tenderness (diffuse) Back: Other (kyphotic) Extremity: No Calf Tenderness, No Pedal Edema Neurologic/Psychiatric: Alert, Oriented x3 Skin: Normal Color, Warm/Dry Results Results/Procedures Labs Laboratory Tests 10/03/20 09:43 10/04/20 06:04 Patient resulted labs reviewed. Imaging: Reviewed Imaging Report Assessment/Plan Admission Diagnosis abdominal pain Admission Status: Inpatient Order (span 2 midnights) Assessment and Plan abdominal pain possible ischemic colitis will order CT chest/abdomen and CTA abdomen pain control Dr. Vega consulted leukocytosis Cipro and Flagyl ОЛЕГ with chronic renal insufficiency IV fluids creatinine improving HTN hydralazine elevated lactate-resolved DEBBIE RODRIGUEZ MED STUDENT Oct 04, 2020 11:49
[2020-10-04 12:01] VITALS: BP 172/80
--- NOTE | 2020-10-04 12:52 | Discharge Summary ---
Discharge Summary Hospital Course Was the Problem List Reviewed?: Yes Problems/Dx: (1) Abdominal pain Status: Acute Qualifiers: Qualified Codes: R10.84 - Generalized abdominal pain Hospital Course Date of Admission: Oct 03, 2020 at 13:15 Admission Diagnosis : Abdominal pain Family Physician/Provider: Drake Camargo MD Date of Discharge: 10/04/20 Discharge Diagnosis: Esophageal perforation Hospital Course: Shawn Alvarado is a 79-year-old male who was admitted with abdominal pain. A CT abdomen was performed which showed no acute abnormalities. Upon my examination, he was having severe chest and epigastric pain with sips of liquids. He recently underwent an EGD with dilatation due to stricture. A CT chest was performed and revealed the mid to distal esophageal perforation. There is also a complex gas and fluid collection surrounding the aorta. He was transferred to [facility] in [place] for cardiothoracic surgery evaluation. Labs and Pending Lab Test: Laboratory Tests 10/03/20 20:25: Lactic Acid Level 1.32 10/04/20 06:04: White Blood Count 15.9H, Red Blood Count 4.63, Hemoglobin 13.6, Hematocrit 42, Mean Corpuscular Volume 90, Mean Corpuscular Hemoglobin 29, Mean Corpuscular Hemoglobin Concent 33, Red Cell Distribution Width 13.4, Platelet Count 211, Mean Platelet Volume 9.6, Immature Granulocyte % (Auto) 0, Neutrophils (%) (Auto) 88H, Lymphocytes (%) (Auto) 4L, Monocytes (%) (Auto) 8, Eosinophils (%) (Auto) 0, Basophils (%) (Auto) 0, Neutrophils # (Auto) 13.9H, Lymphocytes # (Auto) 0.6L, Monocytes # (Auto) 1.2H, Eosinophils # (Auto) 0.0, Basophils # (Auto) 0.0, Immature Granulocyte # (Auto) 0.1, Sodium Level 137, Potassium Level 4.4, Chloride Level 101, Carbon Dioxide Level 23, Anion Gap 13, Blood Urea Nitrogen 23H, Creatinine 1.28, Estimat Glomerular Filtration Rate 54, BUN/Creatinine Ratio 18, Glucose Level 108H, Calcium Level 8.7 Home Meds Active Reported Ondansetron Odt (Ondansetron) 4 Mg Tab.rapdis 4 Mg PO Q4H PRN Metoprolol Succinate 25 Mg Tab.er.24h 25 Mg PO DAILY Donepezil HCl 5 Mg Tablet 5 Mg PO HS Hydrocodone-Acetamin 5-325 mg (Hydrocodone/Acetaminophen) 1 Each Tablet 1 Tab PO QID PRN Finasteride 5 Mg Tablet 5 Mg PO DAILY Assessment/Pt Instructions Patient transferred to [facility] for cardiothoracic surgery evaluation Discharge Planning: >30 minutes discharge planning Discharge Instructions Discharge Diet: Other Diet (NPO) Activity as Tolerated: Yes Consultations Surgery Discharge Physical Examination Vital Signs Vital Signs Date Time Temp Pulse Resp B/P (MAP) Pulse Ox O2 Delivery O2 Flow Rate FiO2 10/04/20 12:01 36.6 69 14 172/80 (110) 95 Room Air General Appearance: WD/WN, Mild Distress (Comfortable) Respiratory: Lungs Clear, Normal Breath Sounds, No Respiratory Distress Cardiovascular: Regular Rate, Rhythm, No Edema, No Murmur Gastrointestinal: Normal Bowel Sounds, Non Tender, Soft Extremity: Normal Inspection, Non Tender, No Pedal Edema Skin: Warm/Dry, Erythema (Facial flushing) Neurologic/Psychiatric: Alert, Oriented x3, No Motor/Sensory Deficits, Normal Mood/Affect Allergies: Coded Allergies: NKANo Known Allergies (Verified Allergy, Unknown, 05/28/06) Copy Copies To 1: DRAKE CAMARGO MD Discharge Summary Date of Admission Oct 03, 2020 at 13:15 Date of Discharge Discharge Date: Oct 04, 2020 Discharge Time: 12:51 Admission Diagnosis abdominal pain Consults/Procedures Consulations Surgery Discharge Diagnosis Esophageal perforation (1) Esophageal perforation CAROL SOLIZ MD Oct 04, 2020 12:48
== END 2020-10-04 12:48 | disposition critical access hospital (66) ==
LOC: EDUNIT# 09:45 → ER 09:47 → UNDOADMOB 13:15 → 4TH 13:15 → UNDODISOB 10-04 13:38
PROVIDERS: ADMIT Internal Medicine; ATTEND Internal Medicine
DX: R10.84 Generalized abdominal pain (principal); R11.2 Nausea with vomiting, unspecified; D61.9 Aplastic anemia, unspecified; K22.3 Perforation of esophagus; D72.829 Elevated white blood cell count, unspecified; K22.2 Esophageal obstruction; G89.29 Other chronic pain; N40.0 Benign prostatic hyperplasia without lower urinary tract symptoms; M19.90 Unspecified osteoarthritis, unspecified site; H91.90 Unspecified hearing loss, unspecified ear; I12.9 Hypertensive chronic kidney disease with stage 1 through stage 4 chronic kidney disease, or unspecified chronic kidney disease; N18.9 Chronic kidney disease, unspecified; I42.9 Cardiomyopathy, unspecified; K44.9 Diaphragmatic hernia without obstruction or gangrene; K57.90 Diverticulosis of intestine, part unspecified, without perforation or abscess without bleeding; N17.9 Acute kidney failure, unspecified; Z79.891 Long term (current) use of opiate analgesic; Z79.899 Other long term (current) drug therapy
CPT/HCPCS: 71250; 74175; 74177; 80048; 80053; 81000; 83605; 83690; 85025 ×2; 86141; 96374; 96375; 96376; 99284; G0378; 36415

== ENCOUNTER 2020-12-07 16:58 | Emergency (ER) | payer MEDICARE ==
[~2020-12-07] VITALS: Ht 170 cm; Wt 62.0 kg
[~2020-12-07 16:58] MED LIST changes: +ONDA4TAB11 PO
--- OUTSIDE RECORDS SUMMARY | 2020-12-07 17:02 | XMS REPORT | Clinical Summary ---
Author Author [facility] Organization [facility] Address Unknown Phone Unavailable Care Team Providers Care Billing Specialist Name Role Phone Elidia Zapata MD PCP Source Comments Some departments are not documenting in the electronic medical record. If you d o not see the information that you expected, contact Release of Information in [facility] Information Management department at [phone] for further assistan ce in locating additional records.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
--- NOTE | 2020-12-07 17:27 | ED Abdominal Pain ---
General Chief Complaint: Abdominal/GI Problems Stated Complaint: ABD PAIN Nursing Triage Note: pt to ED from [facility] with c/o abd pain since this AM. Pt has RLQ and LUQ abd tenderness Source of Information: Patient, Intermediate Records Exam Limitations: No Limitations (MARIANA DALAL MD) Source of Information: Old Records, Other (PT IS POOR HISTORIAN; ALL HISTORY IS FROM OLD RECORDS AND CUSTODIAL RECORDS) (LEIGH SCHROEDER DO) History of Present Illness Date Seen by Provider: Dec 07, 2020 Time Seen by Provider: 17:15 Initial Comments Patient is a 80-year-old male who was sent from [facility] by Dr. Barry with a chief complaint of abdominal pain. Onset today. Patient is a poor historian and cannot really delineate the timeline of his symptoms other than he thinks they started this morning. EMS reported left upper quadrant pain and right lower quadrant pain. Patient states that he had a normal bowel movement this morning. He states that he is not nauseated. He does not report any urinary discomfort, urgency or frequency. He is noted to have a feeding tube in place but cannot really tell me why. No fevers or chills are reported. Patient states that he has had a little bit of a cough and does actively cough while in the department. Has had both Covid vaccinations. Nothing really is reported to make the pain any better or any worse. He did have a hydrocodone prior to arrival. I attempted to call [facility] to get more history but this was unsuccessful. All other review of systems reviewed and negative except as stated. Timing/Duration: 12 Hours Severity/Quality: Moderate (rates at a "6") Radiation: No Radiation Modifying Factors: Improves With Analgesics Associated Symptoms: Denies Symptoms (MARIANA DALAL MD) Initial Comments PT WAS ADMITTED 10/03/20-10/04/20 FOR ABDOMINAL PAIN COMPLAINT AND WAS FOUND TO HAVE ESOPHAGEAL PERFORATION, TRANSFERRED TO [facility] FOR REPAIR. (LEIGH SCHROEDER DO) Allergies and Home Medications Allergies Coded Allergies: NKANo Known Allergies (Verified Allergy, Unknown, 05/28/06) Patient Home Medication List Home Medication List Reviewed: Yes (MARIANA DALAL MD) Cefdinir (Cefdinir) 300 Mg Capsule, 300 MG PO BID Prescribed by: LEIGH SCHROEDER on 12/07/20 6846 Donepezil HCl (Donepezil HCl) 5 Mg Tablet, 5 MG PO HS, (Reported) Entered as Reported by: YENI COLLINS on 09/28/20 1021 Finasteride (Finasteride) 5 Mg Tablet, 5 MG PO DAILY, (Reported) Entered as Reported by: YENI COLLINS on 09/28/20 1021 Hydrocodone/Acetaminophen (Hydrocodone-Acetamin 5-325 mg) 1 Each Tablet, 1 TAB PO QID PRN for PAIN-MODERATE (5-7), (Reported) Entered as Reported by: YENI COLLINS on 09/28/20 1021 Metoprolol Succinate (Metoprolol Succinate) 25 Mg Tab.er.24h, 25 MG PO DAILY, (R eported) Entered as Reported by: YENI COLLINS on 09/28/20 1021 Ondansetron (Ondansetron Odt) 4 Mg Tab.rapdis, 4 MG PO Q4H PRN for NAUSEA/VOMITING-1ST LINE, (Reported) Entered as Reported by: GRACIELA ENNIS on 10/04/20 0850 Phenazopyridine HCl (Pyridium) 200 Mg Tablet, 1 TAB PO TID Prescribed by: LEIGH SCHROEDER on 12/07/201843 Tamsulosin HCl (Flomax) 0.4 Mg Cap, 0.4 MG PO DAILY Prescribed by: LEIGH SCHROEDER on 12/07/201843 Review of Systems Review of Systems Constitutional: see HPI EENTM: No Symptoms Reported Respiratory: Cough Gastrointestinal: Abdominal Pain Genitourinary: No Symptoms Reported Musculoskeletal: no symptoms reported Skin: no symptoms reported (MARIANA DALAL MD) All Other Systems Reviewed Negative Unless Noted: Yes (MARIANA DALAL MD) Past Sqqxheh-Rtmdzd-Tadgah Hx Patient Social History Tobacco Use?: No Alcohol Use?: No (MARIANA DALAL MD) Tobacco Use?: No Substance use?: No Alcohol Use?: Yes (MODERATE USE BY HISTORY) Alcohol type: Beer (ELIGH SCHROEDER DO) Immunizations Up To Date Tetanus Booster (TDap): More than 5yrs First/Initial COVID19 Vaccinat: unknown Second COVID19 Vaccination Corby: unknown COVID19 Vaccine Sifter And Miller: unknown, but states did receive (MARIANA DALAL MD) Seasonal Allergies Seasonal Allergies: No (MARIANA DALAL MD) Past Medical History Surgeries: Yes Cardiac Respiratory: No Cardiac: Yes (LIFE VEST) Cardiomyopathy, Hypertension Neurological: No Reproductive Disorders: No Genitourinary: Yes (STATES HIS KIDNEYS DON'T WORK RIGHT) Prostate Problems Gastrointestinal: No (HERNIA) Musculoskeletal: No Chronic Back Pain Endocrine: No HEENT: Yes Hearing Impairment: Hard of Hearing Cancer: No Psychosocial: No Integumentary: No Blood Disorders: Yes (APLASTIC ANEMIA) (MARIANA DALAL MD) Surgery/Hospitalization HX: HX OF ESOPHAGEAL PERFORATION 10/04/20 WITH REPAIR WITH ESOPHAGEAL STENT AND FEEDING TUBE--[facility] EGD'S/ESOPHAGEAL DILATIONS RIGHT INGUINAL HERNIA INCARCERATION WITH REPAIR 01/[address] QUEVEDO CARDIAC CATH 2017--NO INTERVENTION BY DR. COMBS CONCLUSION: 1. Severe nonischemic cardiomyopathy with ejection fraction 30 percent, anterior wall hypokinesia apical akinesia, left ventricular end-diastolic pressure of 32 2. Distal left main coronary artery stenosis ostial LAD with calcification in the LAD, FFR was 0.98 3. Moderate stenosis at the ostium of the circumflex artery, mild disease in the right coronary artery nonobstructive disease DISCUSSION AND RECOMMENDATION: Continue to maximize medical therapy Surgeries: Yes Abdominal, Cardiac Cardiac: Yes (ATRIAL FLUTTER; ASVD;CHF; CAD-NO INTERVENTION) Cardiomyopathy, Chronic Edema/Swelling, Coronary Artery Disease, Hypertension, Peripheral Vascular Neurological: Yes (COGNITIVE COMMUNICATION DEFICIT) Dementia Genitourinary: Yes (CHRONIC URINARY INCONTINENCE) Prostate Problems Gastrointestinal: Yes (ESOPHAGEAL PERFORATION WITH FEEDING TUBE; DYSPHAGIA;ESOPHAGEAL STRICTURES) Gastroesophageal Reflux, Chronic Constipation Musculoskeletal: Yes (GAIT DISTURBANCE;GENERALIZED WEAKNESS;CHRONIC GEN. 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 No Pertinent Family Hx, Hypertension (MARIANA DALAL MD) PROTEIN CALORIE MALNUTRITION (LEIGH SCHROEDER DO) Physical Exam Vital Signs Vital Signs - First Documented 12/07/20 17:01 Temp 36.2 Pulse 69 Resp 18 B/P (MAP) 125/67 (86) Pulse Ox 98 O2 Delivery Room Air (LEIGH SCHROEDER DO) Vital Signs Capillary Refill : Less Than 3 Seconds (MARIANA DALAL MD) Height/Weight/BMI Height: 5'6.00" Weight: 165lbs. 4.0oz. [id number]; 21.00 BMI Method:Stated General Appearance: WD/WN, no apparent distress HEENT: PERRL/EOMI Neck: full range of motion Respiratory: lungs clear, normal breath sounds, no respiratory distress, no accessory muscle use Cardiovascular: regular rate, rhythm, other (distal pulses intact) Gastrointestinal: soft, other (patient is tender to even light palpation of the skin and the sheets overlying the bed. bowel sounds are normal. bdomen is not distended.) Extremities: non-tender, normal inspection, no pedal edema, no calf tenderness Neurologic/Psychiatric: alert, normal mood/affect, other (seems to have a little underlying dementia, as he is not able to really answer a complete ROS or describe the pain or his PMH) Skin: warm/dry, pallor (MARIANA DALAL MD) HEENT: other (VERY POOR DENTITION AND POOR ORAL HYGIENE) (LEIGH SCHROEDER DO) Progress/Results/Core Measures Results/Orders Lab Results Laboratory Tests Test 12/07/20 17:10 12/07/20 18:00 Range/Units White Blood Count 9.9 4.3-11.0 10^3/uL Red Blood Count 4.43 4.30-5.52 10^6/uL Hemoglobin 12.1 L 13.3-17.7 g/dL Hematocrit 38 L 40-54 % Mean Corpuscular Volume 86 80-99 fL Mean Corpuscular Hemoglobin 27 25-34 pg Mean Corpuscular Hemoglobin Concent 32 32-36 g/dL Red Cell Distribution Width 14.3 10.0-14.5 % Platelet Count 363 130-400 10^3/uL Mean Platelet Volume 9.2 9.0-12.2 fL Immature Granulocyte % (Auto) 3 % Neutrophils (%) (Auto) 66 42-75 % Lymphocytes (%) (Auto) 16 12-44 % Monocytes (%) (Auto) 13 H 0-12 % Eosinophils (%) (Auto) 2 0-10 % Basophils (%) (Auto) 0 0-10 % Neutrophils # (Auto) 6.5 1.8-7.8 10^3/uL Lymphocytes # (Auto) 1.6 1.0-4.0 10^3/uL Monocytes # (Auto) 1.3 H 0.0-1.0 10^3/uL Eosinophils # (Auto) 0.2 0.0-0.3 10^3/uL Basophils # (Auto) 0.0 0.0-0.1 10^3/uL Immature Granulocyte # (Auto) 0.3 H 0.0-0.1 10^3/uL Sodium Level 127 L 135-145 MMOL/L Potassium Level 4.9 3.6-5.0 MMOL/L Chloride Level 95 L 98-107 MMOL/L Carbon Dioxide Level 24 21-32 MMOL/L Anion Gap 8 5-14 MMOL/L Blood Urea Nitrogen 28 H 7-18 MG/DL Creatinine 0.79 0.60-1.30 MG/DL Estimat Glomerular Filtration Rate 95 BUN/Creatinine Ratio 35 Glucose Level 110 H 70-105 MG/DL Calcium Level 9.3 8.5-10.1 MG/DL Corrected Calcium 10.0 8.5-10.1 MG/DL Total Bilirubin 0.4 0.1-1.0 MG/DL Aspartate Amino Transf (AST/SGOT) 13 5-34 U/L Alanine Aminotransferase (ALT/SGPT) 13 0-55 U/L Alkaline Phosphatase 94 40-136 U/L Total Protein 6.9 6.4-8.2 GM/DL Albumin 3.1 L 3.2-4.5 GM/DL Urine Color YELLOW Urine Clarity SL CLOUDY Urine pH 6.0 5-9 Urine Specific [place] 1.010 L 1.016-1.022 Urine Protein NEGATIVE NEGATIVE Urine Glucose (UA) NEGATIVE NEGATIVE Urine Ketones NEGATIVE NEGATIVE Urine Nitrite NEGATIVE NEGATIVE Urine Bilirubin NEGATIVE NEGATIVE Urine Urobilinogen 0.2 < = 1.0 MG/DL Urine Leukocyte Esterase 3+ H NEGATIVE Urine RBC (Auto) 1+ H NEGATIVE Urine RBC 5-10 H /HPF Urine WBC 25-50 H /HPF Urine Squamous Epithelial Cells NONE /HPF Urine Renal Epithelial Cells NONE /HPF Urine Crystals PRESENT H /LPF Urine Amorphous Sediment FEW KELLY URATES H /LPF Urine Bacteria FEW H /HPF Urine Casts NONE /LPF Urine Mucus NEGATIVE /LPF Urine Culture Indicated YES (LEIGH SCHROEDER DO) My Orders Orders - LEIGH SCHROEDER DO Straight Cath For Spec.-Adult (12/07/20 17:52) Ed Iv/Invasive Line Start (12/07/20 17:53) Ns Iv 1000 Ml (Sodium Chloride 0.9%) (12/07/20 18:00) Ct Abd/Pelv W (Appendicitis) (12/07/20 17:58) Chest 1 View, Ap/Pa Only (12/07/20 17:58) Ed Iv/Invasive Line Start (12/07/20 18:11) Ns Iv 1000 Ml (Sodium Chloride 0.9%) (12/07/20 18:15) Iohexol Injection (Omnipaque 350 Mg/Ml 1 (12/07/20 18:15) Received Contrast (Hold Metformin- Contr (12/07/20 18:15) Ns (Ivpb) (Sodium Chloride 0.9% Ivpb Bag (12/07/20 18:15) Ceftriaxone (Rocephin) (12/07/20 18:45) (LEIGH SCHROEDER DO) Medications Given in ED Current Medications Medications Dose Ordered Sig/Anil Route Start Time Stop Time Status Last Admin Dose Admin Ceftriaxone Sodium 1000 mg/ Sterile Water 10 ml @ 200 mls/hr ONCE ONCE IV 12/07/20 18:45 12/07/20 18:47 DC 12/07/20 18:55 200 MLS/HR Iohexol 100 ml ONCE ONCE IV 12/07/20 18:15 12/07/20 18:16 DC 12/07/20 18:37 82 ML Sodium Chloride 100 ml ONCE ONCE IV 12/07/20 18:15 12/07/20 18:16 DC 12/07/20 18:37 80 ML (LEIGH SCHROEDER DO) Vital Signs/I&O 12/07/20 12/07/20 17:01 22:07 Temp 36.2 Pulse 69 87 Resp 18 20 B/P (MAP) 125/67 (86) 122/67 Pulse Ox 98 96 O2 Delivery Room Air Room Air (LEIGH SCHROEDER DO) Blood Pressure Mean: 86 Progress Progress Note : Progress Note 1800--ASSUMED CARE FROM DR. DALAL, LAB PENDING. PT IS RESTING COMFORTABLY. WHEN ASKED IF HE WAS HURTING, HE POINTS ALL ACROSS MID ABDOMEN. PT HAD NO COMPLAINTS OF ANY KIND FOR REMAINDER OF ER STAY PT RESTED QUIETLY FOR MOST OF STAY. (LEIGH SCHROEDER DO) Diagnostic Imaging Comments CT ABDOMEN/PELVIS--PER RADIOLOGIST REPORT AT 183 FINDINGS: There is continued basilar pulmonary infiltrates with mild pleural fluid, greater on the left. The amount of infiltrate and fluid has decreased and there has been interval placement of distal esophageal stent which enters the upper stomach. No focal hepatic, splenic, gallbladder, adrenal gland or renal lesion is identified. Cyst in the upper pole of the right kidney is again demonstrated. There is no free fluid in the abdomen or pelvis. The appendix has a normal appearance. There is moderate aortoiliac atherosclerotic calcification. Urinary bladder is incompletely distended although there may be mild mural thickening. IMPRESSION: 1. Questionable cystitis. Correlation with urinalysis would be of use. 2. There is improvement in aeration of the lung bases with interval placement of distal esophageal stent. CXR--PER RADIOLOGIST REPORT AT 184 FINDINGS: There has been placement of distal esophageal stent. There is mild left basilar atelectasis and/or pneumonitis with small amount of left pleural fluid and/or thickening. No pneumothorax is identified. IMPRESSION: Mild left basilar atelectasis and/or pneumonitis with mild left pleural fluid and/or thickening. Reviewed: Reviewed by Me (LEIGH SCHROEDER DO) Departure Communication (Admissions) Family Conversation [id number]--SPOKE WITH PT'S DAUGHTER, AND UPDATED HER ON PT'S CONDITION. SHE WILL SEE HIM AT CUSTODIAL TOMORROW (LEIGH SCHROEDER DO) Impression Primary Impression: Abdominal pain Additional Impressions: UTI (urinary tract infection) HX ESOPHAGEAL PERFORATION WITH FEEDING TUBE PLACEMENT Dementia Hyponatremia Dehydration MILD BIBASILAR INFILTRATES/ATELECTASIS Disposition: SNF Condition: Stable Departure-Patient Inst. Decision time for Depature: 18:40 (LEIGH SCHROEDER DO) Referrals: RONAL CAMARGO MD (PCP/Family) Primary Care Physician Patient Instructions: Atelectasis, Dehydration, Adult ED, Hyponatremia (DC), Urinary Tract Infection, Adult ED Add. Discharge Instructions: INCREASE FLUID INTAKE CONTINUE CURRENT MEDICATIONS PRESCRIBED FOLLOW UP WITH DR. CAMARGO IN 3-4 DAYS FOR FURTHER CARE, RETURN TO ER IF WORSE All discharge instructions reviewed with patient and/or family. Voiced understanding. Scripts Tamsulosin HCl (Flomax) 0.4 Mg Cap 0.4 MG PO DAILY, #10 CAP Prov: LEIGH SCHROEDER DO 12/07/20 Phenazopyridine HCl (Pyridium) 200 Mg Tablet 1 TAB PO TID, #15 TAB Prov: LEIGH SCHROEDER DO 12/07/20 Cefdinir (Cefdinir) 300 Mg Capsule 300 MG PO BID, #20 CAP Prov: LEIGH SCHROEDER DO 12/07/20 MARIANA DALAL MD Dec 07, 2020 17:27 LEIGH SCHROEDER DO Dec 07, 2020 17:52
[2020-12-07 17:38] LABS: BASOPHILS % (AUTO) 0 % (0-10); EOSINOPHILS # (AUTO) 0.2 10^3/uL (0.0-0.3); EOSINOPHILS % (AUTO) 2 % (0-10); HEMATOCRIT 38 % (40-54); HEMOGLOBIN 12.1 g/dL (13.3-17.7); LYMPHOCYTES # (AUTO) 1.6 10^3/uL (1.0-4.0); LYMPHOCYTES % (AUTO) 16 % (12-44); MEAN CORPUSCULAR HEMOGLOBIN 27 pg (25-34); MEAN CORPUSCULAR HGB CONC 32 g/dL (32-36); MEAN CORPUSCULAR VOLUME 86 fL (80-99); MEAN PLATELET VOLUME 9.2 fL (9.0-12.2); MONOCYTES # (AUTO) 1.3 10^3/uL (0.0-1.0); MONOCYTES % (AUTO) 13 % (0-12); NEUTROPHILS # (AUTO) 6.5 10^3/uL (1.8-7.8); NEUTROPHILS % (AUTO) 66 % (42-75); PLATELET COUNT 363 10^3/uL (130-400); WHITE BLOOD COUNT 9.9 10^3/uL (4.3-11.0)
[2020-12-07 17:39] LABS: ALBUMIN 3.1 GM/DL (3.2-4.5); POTASSIUM 4.9 MMOL/L (3.6-5.0)
[2020-12-07 17:41] LABS: CALCIUM 9.3 MG/DL (8.5-10.1)
[2020-12-07 17:42] LABS: TOTAL PROTEIN 6.9 GM/DL (6.4-8.2)
[2020-12-07 17:44] LABS: BILIRUBIN,TOTAL 0.4 MG/DL (0.1-1.0)
[2020-12-07 17:45] LABS: CREATININE SERUM 0.79 MG/DL (0.60-1.30)
[2020-12-07] MEDS ORDERED: NS IV 1000 ML 1,000 ML IV SCH ×2 (18:00→18:15)
[2020-12-07 18:07] LABS: BILIRUBIN,URINE NEGATIVE (NEGATIVE); CLARITY,URINE SL CLOUDY; COLOR,URINE YELLOW; GLUCOSE, URINE (UA) NEGATIVE (NEGATIVE); KETONES,URINE NEGATIVE (NEGATIVE); LEUKOCYTE ESTERASE ,URINE 3+ (NEGATIVE); NITRITE,URINE NEGATIVE (NEGATIVE); PROTEIN,URINE NEGATIVE (NEGATIVE)
[2020-12-07] MEDS ORDERED: NS 100 ML (IVPB) BAG IV ONE (18:15)
[2020-12-07] MEDS ORDERED: HOLD METFORMIN - RECEIVED CONTRAST 20 ML VIAL IV SCH (18:15)
[2020-12-07] MEDS ORDERED: IOHEXOL 350 MG/ML 100 ML (OMNIPAQUE 350) VIAL IV ONE (18:15)
[2020-12-07 18:16] LABS: BACTERIA,URINE FEW /HPF; WBC,URINE 25-50 /HPF
[2020-12-07 18:18] LABS: AMORPHOUS SEDIMENT,UR FEW AMOR URATES /LPF
--- NOTE | 2020-12-07 18:36 | Diagnostic Imaging Report ---
PROCEDURE: CT abdomen and pelvis with contrast, rule out appendicitis. TECHNIQUE: Multiple contiguous axial images were obtained through the abdomen and pelvis after the administration of intravenous contrast. All CT scans use one or more of the following dose optimizing techniques: automated exposure control, MA and/or KvP adjustment based on patient size and exam type or iterative reconstruction. INDICATION: Right lower quadrant abdominal pain. COMPARISON: 10/04/2020. FINDINGS: There is continued basilar pulmonary infiltrates with mild pleural fluid, greater on the left. The amount of infiltrate and fluid has decreased and there has been interval placement of distal esophageal stent which enters the upper stomach. No focal hepatic, splenic, gallbladder, adrenal gland or renal lesion is identified. Cyst in the upper pole of the right kidney is again demonstrated. There is no free fluid in the abdomen or pelvis. The appendix has a normal appearance. There is moderate aortoiliac atherosclerotic calcification. Urinary bladder is incompletely distended although there may be mild mural thickening. IMPRESSION: 1. Questionable cystitis. Correlation with urinalysis would be of use. 2. There is improvement in aeration of the lung bases with interval placement of distal esophageal stent. Dictated by: Dictated on workstation # [id number]
--- NOTE | 2020-12-07 18:39 | Diagnostic Imaging Report ---
INDICATION: Epigastric pain. EXAMINATION: AP view of the chest was obtained. COMPARISON: Study of 05/17/2020. FINDINGS: There has been placement of distal esophageal stent. There is mild left basilar atelectasis and/or pneumonitis with small amount of left pleural fluid and/or thickening. No pneumothorax is identified. IMPRESSION: Mild left basilar atelectasis and/or pneumonitis with mild left pleural fluid and/or thickening. Dictated by: Dictated on workstation # [id number]
[2020-12-07] MEDS ORDERED: PHEN-640 PO (18:44)
[2020-12-07] MEDS ORDERED: TMSL.4C PO (18:44)
[2020-12-07] MEDS ORDERED: CEFD300C3 PO (18:44)
[2020-12-07] MEDS ORDERED: cefTRIAXone 1,000 MG in WATER (STERILE) FOR INJECTION 10 ML IV ONE (18:45)
[2020-12-07 22:07] VITALS: BP 122/67
== END 2020-12-07 21:08 ==
LOC: EDUNIT# 16:58 → ER 16:59
DX: N39.0 Urinary tract infection, site not specified (principal); F03.90 Unspecified dementia, unspecified severity, without behavioral disturbance, psychotic disturbance, mood disturbance, and anxiety; E87.1 Hypo-osmolality and hyponatremia; E86.0 Dehydration; J98.11 Atelectasis; I11.0 Hypertensive heart disease with heart failure; I50.9 Heart failure, unspecified; G89.29 Other chronic pain; M54.9 Dorsalgia, unspecified; Z79.891 Long term (current) use of opiate analgesic; Z79.899 Other long term (current) drug therapy
CPT/HCPCS: 36415; 71045; 74177; 80053; 81000; 85025; 87077; 87088; 87186; 96374

== ENCOUNTER → 2021-04-26 | Outpatient (CLI) | payer MEDICARE, MEDICAID ==
[~2021-04-26] MED LIST changes: +CEFD300C3 PO; +PHEN-640 PO; +TMSL.4C PO
--- NOTE | 2021-04-26 10:50 | Diagnostic Imaging Report ---
INDICATION: Dysphagia. Study was performed in conjunction with speech pathology. Video fluoroscopy was performed during swallowing of barium at multiple consistencies. A total of 1.2 minutes of fluoroscopic time was utilized. Patient ingested thin barium as well as pudding and soft cracker consistency. Oral phase unremarkable. There is normal epiglottic tilt and laryngeal elevation. No definite penetration or aspiration was observed. No significant vallecular residue is seen. There did appear to be some reflux present on several occasions. IMPRESSION: Essentially unremarkable modified barium swallow without evidence of penetration or aspiration. There does appear to be gastroesophageal reflux present. Dictated by: Dictated on workstation # [id number]
== END ==
LOC: RAD 10:00
PROVIDERS: ATTEND Nurse Practitioner Community Health
DX: R13.12 Dysphagia, oropharyngeal phase (principal)
CPT/HCPCS: 74230

== ENCOUNTER → 2021-05-09 | Outpatient (CLI) | payer MEDICARE, MEDICAID ==
[~2021-05-09] MED LIST changes: +BARIUM for suspension 96% w/w (Vanilla Silq Medium Density) PO ONE; +BARIUM for suspension 98% w/w (Vanilla Silq High Density) PO ONE
--- NOTE | 2021-05-09 12:43 | Diagnostic Imaging Report ---
Esophagram INDICATION: Difficulty swallowing There are no prior esophagram examinations available for comparison. The recent modified barium swallow exam performed on 04/26/2021 failed to show any evidence for aspiration or penetration. However there did appear to be gastroesophageal reflux. For this exam the patient was asked to take one swallow of the barium. He did so without difficulty. However upon swallowing it became immediately apparent that there was a large 8 x 12 cm bulbous area of enlargement of the distal esophagus. Within the dilated portion of the distal esophagus there appeared to be an irregular defect. The esophagus did not appear to be obstructed but there were multiple episodes of reflux and of to and fro motion of the contrast through the esophagus.. There did seem to be narrowing of the gastroesophageal junction and there may be mild stricture formation and/or spasm in this region. Achalasia could also present in this manner. The possibility that there is a constricting neoplasm would be less likely but cannot be entirely excluded. I suspect that the dilated appearance of the distal esophagus is due to long-standing partial obstruction, furthermore I suspect that the irregular defects within the dilated segment of the distal esophagus is related to ingested food. Endoscopy would be recommended for further evaluation. Gradually, the contrast did extend from the stomach into the duodenum and proximal small bowel. There is no evidence for gastric outlet obstruction. IMPRESSION: 1. The distal esophagus does show pronounced bulbous dilatation. This is probably due to partial long-standing obstruction. Differential considerations as above. 2. The poorly defined defects within the dilated portion of the distal esophagus is felt to be related to ingested food. 3. There is no evidence for a gastric outlet obstruction. 4. Endoscopy would be recommended for further evaluation. 5. These results were discussed with Mary Jane Chou APRN. Dictated by: Dictated on workstation # [id number]
== END ==
LOC: RAD 09:45
PROVIDERS: ATTEND Nurse Practitioner Community Health
DX: K22.89 Other specified disease of esophagus (principal)
CPT/HCPCS: 74220

== ENCOUNTER → 2021-05-28 | Outpatient (CLI) | payer MEDICARE, MEDICAID ==
[~2021-05-28] MED LIST changes: -BARIUM for suspension 96% w/w (Vanilla Silq Medium Density) PO ONE; -BARIUM for suspension 98% w/w (Vanilla Silq High Density) PO ONE
--- NOTE | 2021-05-28 14:03 | Diagnostic Imaging Report ---
Gastric Emptying Scintigraphy Radiopharmaceutical: 1.01 mCi Tc-99m sulfur colloid (cooked together with 120 gm scrambled egg substitute), ingested with two slices of bread, 30 gm strawberry jam, and 120 mL of water. History: Dysphagia. Abdominal pain. Findings: A routine solid-phase gastric emptying scintigraphy examination was performed. Anterior and posterior abdominal images were obtained at 0, 60, 120, 180 and 240 minutes after ingestion of the standardized radiolabeled solid meal. Geometric mean analysis was utilized to calculate a gastric emptying percentage at each of these time-points. Both visual analysis and quantitative data analysis of the images show a abnormal time-course of gastric emptying. Approximate percentage of residual ingested contents at each time point (corrected for decay) is as follows: 60 min: 90 120 min: 82 180 min: 77 240 min: 65 A gastric retention of greater than 10 percent of the meal at 4 hours is considered diagnostic of a significantly delayed gastric emptying, based on the normative data of a reference population utilizing this standardized technique. Therefore, the current examination indicates a abnormal gastric emptying in this patient. Impression: Abnormal solid-phase gastric emptying scintigraphy. Findings can be seen with gastroparesis. Recommend correlation with patient history and followup as indicated. Dictated by: Dictated on workstation # [id number]
== END ==
LOC: CARD 09:00
PROVIDERS: ATTEND Internal Medicine Gastroenterology
DX: K31.84 Gastroparesis (principal)
CPT/HCPCS: 78264; A9541

== ENCOUNTER → 2021-10-09 | Outpatient (CLI) | payer MEDICARE, MEDICAID ==
[~2021-10-09] MED LIST changes: +BARIUM for suspension 98% w/w (Vanilla Silq High Density) PO ONE
--- NOTE | 2021-10-09 11:27 | Diagnostic Imaging Report ---
INDICATION: Dysphagia. TECHNIQUE: The patient ingested effervescent crystals as well as thin and thick barium and imaging over the esophagus was performed in multiple obliquities. A total of 1 minute 18 seconds of fluoroscopic time was utilized. COMPARISON: 05/09/2021. FINDINGS: The preliminary radiograph of the chest is unremarkable. There continues to be bulbous dilatation of the distal esophagus, similar to the prior study from April 2021. Just distal to the bulbous dilatation, there does appear to be persistent luminal narrowing of the esophagus, likely owing to some stricture formation. The irregularity of the lumen of the area of dilatation is less prominent on today's study, likely owing to less food products within the esophagus. No complete obstruction is seen. Contrast does flow from the dilated portion into the narrowed region and does empty normally into the stomach. There was significant gastroesophageal reflux, similar to the prior study. Images of the stomach are unremarkable. IMPRESSION: There continues to be bulbous dilatation of the distal esophagus (similar to the examination from April 2021) with some mild luminal narrowing just distal to this at the GE junction, likely owing to stricture formation. No mass lesion is seen. There is significant gastroesophageal reflux noted. Dictated by: Dictated on workstation # [id number]
== END ==
LOC: RAD 09:45
PROVIDERS: ATTEND Nurse Practitioner Community Health
DX: K21.9 Gastro-esophageal reflux disease without esophagitis (principal); K22.89 Other specified disease of esophagus
CPT/HCPCS: 74220